=== PATIENT | female | born 1965 | race Caucasian/White ===

== ENCOUNTER 2016-04-27 12:46 | Inpatient (IN) | payer MEDICARE ==
[2016-04-27] MEDS ORDERED: SODIUM CHLORIDE 0.9% 1,000 ML IV ONE (14:09)
[2016-04-27] MEDS ORDERED: HYDROmorphone 1 MG/ML 1 ML SYRINGE IVP STA ×2 (14:09→16:45)
[2016-04-27] MEDS ORDERED: ONDANSETRON 4 MG/2 ML VIAL IVP STA ×2 (14:09→16:44)
--- NOTE | 2016-04-27 14:15 | ED ---
Abdominal Pain HPI <Salvador Almanza J - Last Filed: 04/27/16 16:58> - General Source: patient, RN notes reviewed Mode of arrival: ambulatory Limitations: no limitations <Darcie Sexton - Last Filed: 04/27/16 19:48> - General Chief Complaint: Abdominal Pain Stated Complaint: High Sugar Time Seen by Provider: 04/27/16 13:43 - History of Present Illness Initial Comments: Patient is a 51-year-old female presents to the emergency room for evaluation of abdominal pain. Patient states he has a history of diabetes and chronic pancreatitis. Patient states she began developing abdominal pain, nausea, vomiting and diarrhea last night. Patient states she has been checking his sugars throughout the night and during this morning and it is continuing to elevate. Patient states that her glucose monitor is now reading "too high". Patient states whenever her glucose monitor reads "too high" sugars are above 600. Patient states that she's been admitted here multiple times for lactic acidosis. Patient states she has chronic pancreatitis from elevated triglycerides. Patient states elevated triglycerides are hereditary and not due to diet. Patient states she is nauseous and has had diarrhea and vomiting multiple times throughout the day today. Patient states she is feeling weak all over. Patient denies headache, chest pain, shortness of breath. Patient states she's having 10 out of 10 left upper quadrant pain. (Darcie Sexton) - Related Data Home Medications Medication Instructions Recorded Confirmed Lisinopril [Zestril] 20 mg PO DAILY 09/09/13 04/27/16 HYDROmorphone [Dilaudid] 2 mg PO Q8H PRN 09/17/14 04/27/16 Multivitamins, Thera [Multivitamin] 1 tab PO DAILY 09/17/14 04/27/16 Atenolol [Tenormin] 100 mg PO DAILY 11/19/14 04/27/16 Calcium Carb-Vit D 500Mg-200Un 1 tab PO BID 11/19/14 04/27/16 [Oscal 500+D] Mirtazapine [Remeron] 45 mg PO HS 11/19/14 04/27/16 Rosuvastatin Calcium [Crestor] 40 mg PO HS 11/19/14 04/27/16 Insulin Aspart [NovoLOG Flexpen] 26 unit SQ AC-BRKFST 10/14/15 04/27/16 Insulin Aspart [NovoLOG Flexpen] 26 unit SQ AC-LUNCH 10/14/15 04/27/16 Insulin Aspart [NovoLOG Flexpen] 36 units SQ AC-SUPPER 10/14/15 04/27/16 Pancreatic Enzymes Otc(Unknown) 1 cap PO AC-TID 10/14/15 04/27/16 Cetirizine HCl [Zyrtec] 10 mg PO DAILY 02/04/16 04/27/16 Niacin 1,000 mg PO HS 02/04/16 04/27/16 clonazePAM [KlonoPIN] 2 mg PO HS 02/04/16 04/27/16 Previous Rx's Medication Instructions Recorded Fenofibrate [Lofibra] 160 mg PO HS tab 08/09/14 Gabapentin [Neurontin] 200 mg PO BID cap 08/09/14 Metoclopramide [Reglan] 5 mg PO ACHS tab 08/09/14 Prochlorperazine [Compazine] 10 mg PO TID PRN #0 tab 08/09/14 Sertraline [Zoloft] 200 mg PO DAILY tab 08/09/14 clonazePAM [KlonoPIN] 1 mg PO DAILY tab 08/09/14 fentaNYL 25MCG/HR PATCH [Duragesic 1 patch TRANSDERM Q72H #0 07/10/15 25MCG/HR] Dicyclomine [Bentyl] 10 mg PO TID PRN #90 cap 03/22/16 Famotidine [Pepcid] 20 mg PO BID #0 03/22/16 Insulin Detemir [Levemir] 50 unit SQ HS #0 vial 03/22/16 Allergies Allergy/AdvReac Type Severity Reaction Status Date / Time NSAIDS (Non-Steroidal Allergy Rash/Hives Verified 04/27/16 14:14 Anti-Inflamma Review of Systems ROS Other: All systems not noted in ROS Statement are negative. <Salvador Almanza - Last Filed: 04/27/16 16:58> ROS Other: All systems not noted in ROS Statement are negative. <Darcie Sexton - Last Filed: 04/27/16 19:48> ROS Statement: Those systems with pertinent positive or pertinent negative responses have been documented in the HPI. Past Medical History Past Medical History: Coronary Artery Disease (CAD), Diabetes Mellitus, GERD/ Reflux, Hyperlipidemia, Hypertension Additional Past Medical History / Comment(s): IDDM type I per pt, recurrent DKA in past, hypertensive heart disease, chronic pain syndrome, hypertriglyceridemia , chronic pancreatitis, chronic abdominal pain, gastroparesis, severe GERD, diabetic polyneuropathy mostly in hands and alittle in feet bilaterally, infectious colitis, perimenopausal. History of Any Multi-Drug Resistant Organisms: None Reported Past Surgical History: Cholecystectomy Additional Past Surgical History / Comment(s): Biliary stent through an ERCP that was performed at [facility] and stent removed 2007, lap jenn, colonoscopy, ERCP. Past Anesthesia/Blood Transfusion Reactions: No Reported Reaction Additional Past Anesthesia/Blood Transfusion Reaction / Comment(s): Pt has never received blood. Past Psychological History: Anxiety, Depression, Panic Disorder, PTSD Additional Psychological History / Comment(s): Pt lives in her home with her gadiel , son-in-law and 2 grandchildren. She is independent. She currently is on disability. She drives a car a limited amount-family drive her places at times. She has anxiety and occasional anxiety-panic attacks. She sees Dr. Fink at [facility] and is councelled by Chad Samuels. She states her current psych med rigeme is working well. Her gadiel and dad help her out. She has a rescue dog. Smoking Status: Never smoker Past Alcohol Use History: None Reported Past Drug Use History: None Reported - Past Family History Father Family Medical History: No Reported History Additional Family Medical History / Comment(s): Father had severe anxiety and was hospitalized for this at times. Mother Family Medical History: Cancer Additional Family Medical History / Comment(s): Mother of metastatic breast CA at the age of 42yrs. <Darcie Sexton - Last Filed: 04/27/16 19:48> General Exam <Salvador Almanza - Last Filed: 04/27/16 16:58> Limitations: no limitations General appearance: alert, in no apparent distress Head exam: Present: atraumatic, normocephalic, normal inspection Eye exam: Present: normal appearance ENT exam: Present: normal exam Neck exam: Present: normal inspection Respiratory exam: Present: normal lung sounds bilaterally. Absent: respiratory distress Cardiovascular Exam: Present: regular rate, normal rhythm, normal heart sounds GI/Abdominal exam: Present: soft, tenderness (Left upper quadrant), normal bowel sounds. Absent: distended, guarding, rebound, rigid Extremities exam: Present: normal inspection Back exam: Present: normal inspection Neurological exam: Present: alert, oriented X3, CN II-XII intact, normal gait Psychiatric exam: Present: normal affect, normal mood Skin exam: Present: warm, dry, intact, normal color. Absent: rash <Darcie Sexton - Last Filed: 04/27/16 19:48> - General Exam Comments Initial Comments: Laying in exam room, no acute distress. (Darcie Sexton) Medical Decision Making - Lab Data Result diagrams: 04/27/16 14:30 04/27/16 14:30 <Salvador Almanza - Last Filed: 04/27/16 16:58> - Lab Data Result diagrams: 04/27/16 14:30 04/27/16 14:30 <Darcie Sexton - Last Filed: 04/27/16 19:48> - Medical Decision Making The patient was seen and examined. All diagnostics were reviewed. Case is discussed with internal medicine and they are agreeable to admission. The case also was discussed with the PA and I agree with the findings as documented. ( Salvador Almanza) Patient is a 51-year-old female presents to the emergency room for evaluation abdominal pain, nausea and vomiting. Patient's lactic acid 5.6. Patient is also hyperglycemic. Case discussed with Dr. Almanza. Dr. Almanza also evaluated patient. Dr. Almanza discussed case with Dr. Borges who agreed to admit patient. Patient will be started on an insulin drip and advised to switch to a sliding scale once glucose reaches 250. Patient hydrated with IV fluids. Plan discussed with patient. (Darcie Sexton) - Lab Data Lab Results 04/27/16 04/27/16 04/27/16 Range/Units 14:30 14:30 14:30 WBC 8.3 (3.8-10.6) k/uL RBC 4.82 (3.80-5.40) m/uL Hgb 14.7 (11.4-16.0) gm/dL Hct 43.3 (34.0-46.0) % MCV 89.8 (80.0-100.0) fL MCH 30.5 (25.0-35.0) pg MCHC 33.9 (31.0-37.0) g/dL RDW 13.1 (11.5-15.5) % Plt Count 213 (150-450) k/uL Neutrophils % 81 % Lymphocytes % 15 % Monocytes % 3 % Eosinophils % 1 % Basophils % 0 % Neutrophils # 6.7 (1.3-7.7) k/uL Lymphocytes # 1.2 (1.0-4.8) k/uL Monocytes # 0.3 (0-1.0) k/uL Eosinophils # 0.1 (0-0.7) k/uL Basophils # 0.0 (0-0.2) k/uL Sodium 142 (137-145) mmol/L Potassium 5.1 (3.5-5.1) mmol/L Chloride 101 (98-107) mmol/L Carbon Dioxide 20 L (22-30) mmol/L Anion Gap 21 mmol/L BUN 12 (7-17) mg/dL Creatinine 0.56 (0.52-1.04) mg/dL Est GFR (MDRD) Af Amer >60 (>60 ml/min/1.73 sqM) Est GFR (MDRD) Non-Af >60 (>60 ml/min/1.73 sqM) Glucose 492 H* (74-99) mg/dL POC Glucose (mg/dL) (75-99) mg/dL POC Glu Hole Digger ID Plasma Lactic Acid [place] 5.6 H* (0.7-2.0) mmol/L Calcium 10.8 H (8.4-10.2) mg/dL Magnesium 2.1 (1.6-2.3) mg/dL Total Bilirubin 0.7 (0.2-1.3) mg/dL AST 81 H (14-36) U/L ALT 111 H (9-52) U/L Alkaline Phosphatase 153 H (38-126) U/L Total Protein 8.3 H (6.3-8.2) g/dL Albumin 5.3 H (3.5-5.0) g/dL Amylase 86 (30-110) U/L Lipase 192 (23-300) U/L Urine Color Urine Appearance (Clear) Urine pH (5.0-8.0) Ur Specific [place] (1.001-1.035) Urine Protein (Negative) Urine Glucose (UA) (Negative) Urine Ketones (Negative) Urine Blood (Negative) Urine Nitrate (Negative) Urine Bilirubin (Negative) Urine Urobilinogen (<2.0) mg/dL Ur Leukocyte Esterase (Negative) Acetone, Qual Negative (Negative) 04/27/16 04/27/16 04/27/16 Range/Units 14:30 14:53 16:52 WBC (3.8-10.6) k/uL RBC (3.80-5.40) m/uL Hgb (11.4-16.0) gm/dL Hct (34.0-46.0) % MCV (80.0-100.0) fL MCH (25.0-35.0) pg MCHC (31.0-37.0) g/dL RDW (11.5-15.5) % Plt Count (150-450) k/uL Neutrophils % % Lymphocytes % % Monocytes % % Eosinophils % % Basophils % % Neutrophils # (1.3-7.7) k/uL Lymphocytes # (1.0-4.8) k/uL Monocytes # (0-1.0) k/uL Eosinophils # (0-0.7) k/uL Basophils # (0-0.2) k/uL Sodium (137-145) mmol/L Potassium (3.5-5.1) mmol/L Chloride (98-107) mmol/L Carbon Dioxide (22-30) mmol/L Anion Gap mmol/L BUN (7-17) mg/dL Creatinine (0.52-1.04) mg/dL Est GFR (MDRD) Af Amer (>60 ml/min/1.73 sqM) Est GFR (MDRD) Non-Af (>60 ml/min/1.73 sqM) Glucose (74-99) mg/dL POC Glucose (mg/dL) 420 H 314 H (75-99) mg/dL POC Glu Hole Digger ID Saima King A Lewis, Brittany, A Plasma Lactic Acid [place] (0.7-2.0) mmol/L Calcium (8.4-10.2) mg/dL Magnesium (1.6-2.3) mg/dL Total Bilirubin (0.2-1.3) mg/dL AST (14-36) U/L ALT (9-52) U/L Alkaline Phosphatase (38-126) U/L Total Protein (6.3-8.2) g/dL Albumin (3.5-5.0) g/dL Amylase (30-110) U/L Lipase (23-300) U/L Urine Color Colorless Urine Appearance Clear (Clear) Urine pH 5.0 (5.0-8.0) Ur Specific [place] 1.024 (1.001-1.035) Urine Protein Negative (Negative) Urine Glucose (UA) 4+ H (Negative) Urine Ketones Negative (Negative) Urine Blood Negative (Negative) Urine Nitrate Negative (Negative) Urine Bilirubin Negative (Negative) Urine Urobilinogen <2.0 (<2.0) mg/dL Ur Leukocyte Esterase Negative (Negative) Acetone, Qual (Negative) Disposition <Salvador Almanza - Last Filed: 04/27/16 16:58> Decision Date: 04/27/16 <Darcie Sexton - Last Filed: 04/27/16 19:48> Clinical Impression: Lactic acidosis, Hyperglycemia Disposition: ADMITTED IP TO THIS HOSP Condition: Stable
[2016-04-27 14:54] LABS: Basophils % (A) 0 %; CH 31.1; CHCM 34.8; Eosinophils # (A) 0.1 k/uL (0-0.7); Eosinophils % (A) 1 %; HCT 43.3 % (34.0-46.0); HDW 3.01; HGB 14.7 gm/dL (11.4-16.0); Luc # (Auto) 0.05; Luc % (Auto) 1; Lymphocytes # (A) 1.2 k/uL (1.0-4.8); Lymphocytes % (A) 15 %; MCH 30.5 pg (25.0-35.0); MCHC 33.9 g/dL (31.0-37.0); MCV 89.8 fL (80.0-100.0); Mean Platelet Volume 6.9; Monocytes # (A) 0.3 k/uL (0-1.0); Monocytes % (A) 3 %; Neutrophils # (A) 6.7 k/uL (1.3-7.7); Neutrophils % (A) 81 %; RBC 4.82 m/uL (3.80-5.40); RDW 13.1 % (11.5-15.5); WBC 8.3 k/uL (3.8-10.6); WBC (Perox) 8.47
[2016-04-27 14:55] LABS: Appearance,Urine Clear (Clear); Bilirubin,Urine Negative (Negative); Glucose,Urine (UA) 4+ (Negative); Ketones,Urine Negative (Negative); Leukocyte Esterase,Urine Negative (Negative); Nitrite,Urine Negative (Negative); Protein,Urine Negative (Negative); Specific Gravity,Urine 1.024 (1.001-1.035); UA Billing (MACRO vs. MICRO) CHEM; Urobilinogen,Urine <2.0 mg/dL (<2.0)
[2016-04-27 14:56] LABS: Glucose,Whole Blood 420 mg/dL (75-99)
[2016-04-27 15:10] LABS: ALT 111 U/L (9-52); AST 81 U/L (14-36); Alkaline Phosphatase 153 U/L (38-126); Amylase 86 U/L (30-110); Anion Gap 21 mmol/L; Blood Urea Nitrogen 12 mg/dL (7-17); Calcium 10.8 mg/dL (8.4-10.2); Carbon Dioxide 20 mmol/L (22-30); Chloride 101 mmol/L (98-107); Magnesium 2.1 mg/dL (1.6-2.3); Non-African American GFR(MDRD) >60 (>60 ml/min/1.73 sqM); Potassium 5.1 mmol/L (3.5-5.1); Sodium 142 mmol/L (137-145); Total Bilirubin 0.7 mg/dL (0.2-1.3); Total Protein 8.3 g/dL (6.3-8.2)
[2016-04-27] MEDS ORDERED: SODIUM CHLORIDE 0.9% 500 ML IV ONE (15:37)
[2016-04-27 15:58] LABS: Glucose 492 mg/dL (74-99)
[2016-04-27] MEDS ORDERED: INSULIN REGULAR 100 UNIT/ML VIAL SQ STA (16:38)
[2016-04-27 16:56] LABS: Glucose,Whole Blood 314 mg/dL (75-99)
[2016-04-27] MEDS ORDERED: NALOXONE 0.4 MG/ML 1 ML VIAL IV PRN (16:56)
[2016-04-27] MEDS ORDERED: INSULIN REGULAR 100 UNIT in SODIUM CHLORIDE 0.9% 100 ML IV ONE (17:00)
[2016-04-27] MEDS: ONDANSETRON 4 MG/2 ML VIAL IVP PRN (17:13)
[2016-04-27 18:14] LABS: Glucose,Whole Blood 243 mg/dL (75-99)
[2016-04-27] MEDS ORDERED: DICYCLOMINE 10 MG CAP PO PRN (18:20)
[2016-04-27] MEDS ORDERED: PROCHLORPERAZINE 10 MG TAB PO PRN (18:20)
[2016-04-27] MEDS: SODIUM CHLORIDE 0.9% 1,000 ML IV SCH ×2 (18:50→22:49)
[2016-04-27] MEDS: HYDROmorphone 1 MG/ML 1 ML SYRINGE IV PRN ×2 (19:52→22:49)
[2016-04-27] MEDS: NIACIN TR 500 MG CAPSULE.ER PO SCH (19:53)
[2016-04-27] MEDS: CALCIUM CARB-VIT D 500MG-200UN 1 EACH TAB PO SCH (19:53)
[2016-04-27] MEDS: clonazePAM 1 MG TAB PO SCH (19:53)
[2016-04-27] MEDS: GABAPENTIN 100 MG CAP PO SCH (19:54)
[2016-04-27] MEDS: METOCLOPRAMIDE 5 MG TAB PO SCH (19:54)
[2016-04-27] MEDS: FAMOTIDINE 20 MG TAB PO SCH (19:54)
[2016-04-27] MEDS: FENOFIBRATE 160 MG TAB PO SCH (19:54)
[2016-04-27] MEDS: ATORVASTATIN 80 MG TAB PO SCH (19:54)
[2016-04-27] MEDS: MIRTAZAPINE 45 MG TABLET PO SCH (19:54)
[2016-04-27 19:57] LABS: Glucose,Whole Blood 306 mg/dL (75-99)
[2016-04-27] MEDS: INSULIN DETEMIR 100 UNIT/ML 10 ML VIAL SQ SCH (21:08)
[2016-04-27] MEDS: INSULIN LISPRO (humaLOG) 300 UNIT/3 ML VIAL SQ SCH (21:08)
[2016-04-28] MEDS: ONDANSETRON 4 MG/2 ML VIAL IVP PRN ×3 (01:37→19:01)
[2016-04-28] MEDS: HYDROmorphone 1 MG/ML 1 ML SYRINGE IV PRN ×7 (01:37→22:20)
[2016-04-28 05:20] LABS: Glucose,Whole Blood 225 mg/dL (75-99)
[2016-04-28] MEDS: INSULIN LISPRO (humaLOG) 300 UNIT/3 ML VIAL SQ SCH ×5 (06:32→22:17)
[2016-04-28] MEDS: METOCLOPRAMIDE 5 MG TAB PO SCH ×4 (06:33→23:46)
[2016-04-28] MEDS: FAMOTIDINE 20 MG TAB PO SCH ×2 (08:20→22:16)
[2016-04-28] MEDS: ATENOLOL 50 MG TAB PO SCH (08:21)
[2016-04-28] MEDS: MULTIVITAMINS, THERA 1 EACH TAB PO SCH (08:21)
[2016-04-28] MEDS: LISINOPRIL 20 MG TAB PO SCH (08:21)
[2016-04-28] MEDS: GABAPENTIN 100 MG CAP PO SCH ×2 (08:22→22:17)
[2016-04-28] MEDS: CALCIUM CARB-VIT D 500MG-200UN 1 EACH TAB PO SCH ×2 (08:22→22:16)
[2016-04-28] MEDS: SERTRALINE 100 MG TAB PO SCH (08:22)
[2016-04-28] MEDS: LORATADINE 10 MG TAB PO SCH (08:22)
[2016-04-28] MEDS: SODIUM CHLORIDE 0.9% 1,000 ML IV SCH (08:23)
[2016-04-28] MEDS: clonazePAM 1 MG TAB PO SCH ×2 (08:47→22:16)
[2016-04-28 11:49] LABS: Glucose,Whole Blood 244 mg/dL (75-99)
--- NOTE | 2016-04-28 11:52 | P.HPIM ---
History of Present Illness H&P Date: 04/27/16 Chief Complaint: Non ketotic hyperosmolar hyperglycemia. This is a 51-year-old female one of my patients with previous medical history significant for familial dyslipidemia, recurrent pancreatitis and chronic abdominal pain, thought to be due to hypertriglyceridemia, hypertension and hypertensive cardiovascular disease, diabetes mellitus type 2 with recurrent diabetic ketoacidosis in the past. Patient was brought into the emergency department at [facility] yesterday because of elevated blood glucose level in the range of 600, patient was complaining of increased abdominal pain associated with increased diarrhea without any nausea or vomiting , she was found to have significant lactic acidosis for which she was given 2 L of normal saline a subsequent she was admitted to the hospital for non- ketotic hyperosmolar hyperglycemia and was placed on insulin drip as well as normal saline at 100 mL an hour, and she was admitted to a telemetry unit. Review of Systems Constitutional: Denies chills, Denies chronic headaches, Denies fever, Denies malaise, Denies weakness, Denies weight gain, Denies weight loss Eyes: denies blurred vision Ears: deny: decreased hearing Ears, nose, mouth and throat: Denies dysphagia, Denies neck fullness/pressure, Denies neck lump, Denies swelling in throat, Denies sore throat Cardiovascular: Reports high blood pressure, Denies chest pain, Denies decreased exercise tolerance, Denies dyspnea on exertion, Denies paroxysmal nocturnal dyspnea, Denies phlebitis, Denies rapid heart beat, Denies shortness of breath, Denies syncope Respiratory: Denies congestion, Denies cough, Denies cough with sputum, Denies home oxygen, Denies sleep apnea, Denies snoring, Denies wheezing Gastrointestinal: Reports abdominal pain, Reports bloating, Reports change in bowel habits, Reports diarrhea, Reports dyspepsia, Reports heartburn, Reports nausea, Denies constipation, Denies hematemesis, Denies hematochezia, Denies melena, Denies vomiting Genitourinary: Denies dysuria, Denies hematuria Musculoskeletal: Denies myalgias Musculoskeletal: absent: ankle pain, ankle stiffness, ankle swelling, elbow pain , elbow stiffness, elbow swelling, foot pain, foot stiffness, foot swelling, hand pain, hand stiffness, hand swelling, hip pain, hip stiffness, hip swelling , knee pain, knee stiffness, knee swelling, shoulder pain, shoulder stiffness, shoulder swelling, wrist pain, wrist stiffness, wrist swelling Integumentary: Denies pruritus, Denies rash Neurological: Denies numbness, Denies weakness Psychiatric: Reports anxiety, Reports depression, Denies sadness/tearfulness, Denies sleep disturbances, Denies suicidal ideation Endocrine: Denies fatigue, Denies weight change Past Medical History Past Medical History: Coronary Artery Disease (CAD), Diabetes Mellitus, GERD/ Reflux, Hyperlipidemia, Hypertension Additional Past Medical History / Comment(s): IDDM type I per pt, recurrent DKA in past, hypertensive heart disease, chronic pain syndrome, hypertriglyceridemia , chronic pancreatitis, chronic abdominal pain, gastroparesis, severe GERD, diabetic polyneuropathy mostly in hands and alittle in feet bilaterally, infectious colitis, perimenopausal. History of Any Multi-Drug Resistant Organisms: None Reported Past Surgical History: Cholecystectomy Additional Past Surgical History / Comment(s): Biliary stent through an ERCP that was performed at [facility] and stent removed 2007, lap jenn, colonoscopy, ERCP. Past Anesthesia/Blood Transfusion Reactions: No Reported Reaction Additional Past Anesthesia/Blood Transfusion Reaction / Comment(s): Pt has never received blood. Past Psychological History: Anxiety, Depression, Panic Disorder, PTSD Additional Psychological History / Comment(s): Pt lives in her home with her gadiel , son-in-law and 2 grandchildren. She is independent. She currently is on disability. She drives a car a limited amount-family drive her places at times. She has anxiety and occasional anxiety-panic attacks. She sees Dr. Fink at [facility] and is councelled by Chad Samuels. She states her current psych med rigeme is working well. Her gadiel and dad help her out. She has a rescue dog. Smoking Status: Never smoker Past Alcohol Use History: None Reported Past Drug Use History: None Reported - Past Family History Father Family Medical History: No Reported History Additional Family Medical History / Comment(s): Father had severe anxiety and was hospitalized for this at times. Mother Family Medical History: Cancer Additional Family Medical History / Comment(s): Mother of metastatic breast CA at the age of 42yrs. Medications and Allergies Home Medications Medication Instructions Recorded Confirmed Type Lisinopril [Zestril] 20 mg PO DAILY 09/09/04/27/16 History HYDROmorphone [Dilaudid] 2 mg PO Q8H PRN 09/17/14 04/27/16 History Multivitamins, Thera [Multivitamin] 1 tab PO DAILY 09/17/14 04/27/16 History Atenolol [Tenormin] 100 mg PO DAILY 11/19/14 04/27/16 History Calcium Carb-Vit D 500Mg-200Un 1 tab PO BID 11/19/14 04/27/16 History [Oscal 500+D] Mirtazapine [Remeron] 45 mg PO HS 11/19/14 04/27/16 History Rosuvastatin Calcium [Crestor] 40 mg PO HS 11/19/14 04/27/16 History Insulin Aspart [NovoLOG Flexpen] 26 unit SQ AC-BRKFST 10/14/15 04/27/16 History Insulin Aspart [NovoLOG Flexpen] 26 unit SQ AC-LUNCH 10/14/15 04/27/16 History Insulin Aspart [NovoLOG Flexpen] 36 units SQ AC-SUPPER 10/14/15 04/27/16 History Pancreatic Enzymes Otc(Unknown) 1 cap PO AC-TID 10/14/15 04/27/16 History Cetirizine HCl [Zyrtec] 10 mg PO DAILY 02/04/16 04/27/16 History Niacin 1,000 mg PO HS 02/04/16 04/27/16 History clonazePAM [KlonoPIN] 2 mg PO HS 02/04/16 04/27/16 History Allergies Allergy/AdvReac Type Severity Reaction Status Date / Time NSAIDS (Non-Steroidal Allergy Rash/Hives Verified 04/27/16 14:14 Anti-Inflamma Physical Exam Vitals: Vital Signs Pulse Resp BP Pulse Ox 04/27/16 17:19 93 14 119/76 95 - Constitutional General appearance: average body habitus, no acute distress - EENT Eyes: anicteric sclerae, PERRLA, no ptosis, no scleral icterus, normal appearance ENT: hearing grossly normal, normal oropharynx, no thrush Ears: bilateral: normal - Neck Neck: no lymphadenopathy, normal ROM, no rigidity, no stridor, no thyromegaly Carotids: bilateral: upstroke normal Thyroid: bilateral: normal size - Respiratory Respiratory: bilateral: diminished, negative: dullness, rales, rhonchi, wheezing , prolonged expiration, prolonged inspiration - Cardiovascular Rhythm: regular Heart sounds: normal: S1, S2 Abnormal Heart Sounds: no systolic murmur, no S3 Gallop, no S4 Gallop, no click - Gastrointestinal General gastrointestinal: normal bowel sounds, soft, no splenomegaly, no tenderness, no umbilical hernia, no ventral hernia - Integumentary Integumentary: normal, normal turgor - Neurologic Neurologic: CNII-XII intact - Musculoskeletal Musculoskeletal: generalized weakness, strength equal bilaterally - Psychiatric Psychiatric: A&O x's 3, appropriate affect, intact judgment & insight Results CBC & Chem 7: 04/27/16 14:30 04/27/16 14:30 Thrombosis Risk Factor Assmnt - DVT/VTE Prophylaxis DVT/VTE Prophylaxis: Mechanical Prophylaxis ordered Assessment and Plan Plan: Assessment and plan: 1. Hyperosmolar nonketotic hyperglycemia. IV fluid, insulin drip, monitor the patient was a very closely every hour, and transition the patient to her Lantus at night if her blood with level is in the good range, since the patient does not have any significant acidosis at this point in time. 2. History of diabetes mellitus type 2 insulin requiring we will transition the patient back to Levemir and Humalog. 3. Hypertension and hypertensive cardiovascular disease with left ventricular hypertrophy we will continue the patient on atenolol 100 mg orally once every day as well as lisinopril 20 mg orally once every day. 4. Hyperlipidemia continue the patient on Crestor 40 mg orally once every day, fenofibrate 160 mg orally once every day,Niaspan 1000 g orally once every. 5. Diabetic polyneuropathy continue gabapentin 200 mg orally twice every day. 6. Anxiety generalized continue Klonopin 2 milligram in the evening and 1 mg in the morning. 7. Depression, recurrent continue Zoloft 200 mg orally once every day. 8. Gastroparesis continue Reglan 5 mg before each meal 3 times every day. 9. Chronic pancreatitis continue IV fluid resuscitation as well as current pain management in the form of Dilaudid along with fentanyl patch. 10. GERD continue PPI. 11. DVT prophylaxis early ambulation. 12. Full code. 13. Admit to inpatient. Estimated length of stay 2 midnights .
--- NOTE | 2016-04-28 13:00 | P.PN ---
Subjective This is a 51-year-old female one of my patients with previous medical history significant for familial dyslipidemia, recurrent pancreatitis and chronic abdominal pain, thought to be due to hypertriglyceridemia, hypertension and hypertensive cardiovascular disease, diabetes mellitus type 2 with recurrent diabetic ketoacidosis in the past. Patient was brought into the emergency department at [facility] yesterday because of elevated blood glucose level in the range of 600, patient was complaining of increased abdominal pain associated with increased diarrhea without any nausea or vomiting , she was found to have significant lactic acidosis for which she was given 2 L of normal saline a subsequent she was admitted to the hospital for non- ketotic hyperosmolar hyperglycemia and was placed on insulin drip as well as normal saline at 100 mL an hour, and she was admitted to a telemetry unit. 04/28: Patient thinks she will do better on a soft diet which is been ordered for lunch. IV fluids changed to saline lock. Patient will be resumed back on scheduled Humalog. Blood sugars have been running in the 225-306. Patient will be transferred to the [facility] floor. Objective - Vital Signs Vital signs: Vital Signs Temp 97.4 F L 04/28/16 08:00 Pulse 70 04/28/16 12:10 Resp 16 04/28/16 12:10 BP 110/65 04/28/16 12:10 Pulse Ox 98 04/28/16 12:10 Intake & Output 04/27/16 04/28/16 04/28/16 18:59 06:59 18:59 Intake Total 120 Output Total 800 Balance -800 120 Weight 64.41 kg 64.8 kg Intake: Oral 120 Output: Urine 800 Other: Voiding Method Toilet Toilet Toilet # Voids 1 - Exam General appearance: average body habitus, no acute distress - EENT Eyes: anicteric sclerae, PERRLA, no ptosis, no scleral icterus, normal appearance ENT: hearing grossly normal, normal oropharynx, no thrush Ears: bilateral: normal - Neck Neck: no lymphadenopathy, normal ROM, no rigidity, no stridor, no thyromegaly Carotids: bilateral: upstroke normal Thyroid: bilateral: normal size - Respiratory Respiratory: bilateral: diminished, negative: dullness, rales, rhonchi, wheezing , prolonged expiration, prolonged inspiration - Cardiovascular Rhythm: regular Heart sounds: normal: S1, S2 Abnormal Heart Sounds: no systolic murmur, no S3 Gallop, no S4 Gallop, no click - Gastrointestinal General gastrointestinal: normal bowel sounds, soft, no splenomegaly, no tenderness, no umbilical hernia, no ventral hernia - Integumentary Integumentary: normal, normal turgor - Neurologic Neurologic: CNII-XII intact - Musculoskeletal Musculoskeletal: generalized weakness, strength equal bilaterally - Psychiatric Psychiatric: A&O x's 3, appropriate affect, intact judgment & insight - Labs CBC & Chem 7: 04/27/16 14:30 04/27/16 14:30 Labs: Abnormal Lab Results - Last 24 Hours (Table) 04/27/16 04/27/16 04/28/16 Range/Units 17:59 19:44 05:17 POC Glucose (mg/dL) 243 H 306 H 225 H (75-99) mg/dL 04/28/16 Range/Units 11:47 POC Glucose (mg/dL) 244 H (75-99) mg/dL Assessment and Plan Plan: 1. Hyperosmolar nonketotic hyperglycemia. IV fluid, insulin drip, monitor the patient was a very closely every hour, and transition the patient to her Lantus at night if her blood with level is in the good range, since the patient does not have any significant acidosis at this point in time. 2. History of diabetes mellitus type 2 insulin requiring we will transition the patient back to Levemir and Humalog. 3. Hypertension and hypertensive cardiovascular disease with left ventricular hypertrophy we will continue the patient on atenolol 100 mg orally once every day as well as lisinopril 20 mg orally once every day. 4. Hyperlipidemia continue the patient on Crestor 40 mg orally once every day, fenofibrate 160 mg orally once every day,Niaspan 1000 g orally once every. 5. Diabetic polyneuropathy continue gabapentin 200 mg orally twice every day. 6. Anxiety generalized continue Klonopin 2 milligram in the evening and 1 mg in the morning. 7. Depression, recurrent continue Zoloft 200 mg orally once every day. 8. Gastroparesis continue Reglan 5 mg before each meal 3 times every day. 9. Chronic pancreatitis continue IV fluid resuscitation as well as current pain management in the form of Dilaudid along with fentanyl patch. 10. GERD continue PPI. 11. DVT prophylaxis early ambulation. 12. Full code. Discharge plan: Return home Impression and plan of care have been directed as dictated by the signing physician. Amanda Kumar nurse practitioner acting as scribe for signing physician. Time with Patient: Greater than 30
[2016-04-28 13:01] VITALS: BMI 24.5
[2016-04-28 17:01] LABS: Glucose,Whole Blood 112 mg/dL (75-99)
[2016-04-28] MEDS ORDERED: INSULIN LISPRO (humaLOG) 300 UNIT/3 ML VIAL SQ SCH (17:30)
[2016-04-28 21:22] LABS: Glucose,Whole Blood 163 mg/dL (75-99)
[2016-04-28] MEDS: ATORVASTATIN 80 MG TAB PO SCH (22:16)
[2016-04-28] MEDS: FENOFIBRATE 160 MG TAB PO SCH (22:17)
[2016-04-28] MEDS: INSULIN DETEMIR 100 UNIT/ML 10 ML VIAL SQ SCH (22:17)
[2016-04-28] MEDS: MIRTAZAPINE 45 MG TABLET PO SCH (22:18)
[2016-04-28] MEDS: NIACIN TR 500 MG CAPSULE.ER PO SCH (22:18)
[2016-04-29 02:00] LABS: Glucose,Whole Blood 116 mg/dL (75-99)
[2016-04-29 07:25] LABS: Glucose,Whole Blood 117 mg/dL (75-99)
[2016-04-29] MEDS ORDERED: INSULIN LISPRO (humaLOG) 300 UNIT/3 ML VIAL SQ SCH (07:30)
[2016-04-29 07:46] VITALS: RESP 18
[2016-04-29] MEDS: ONDANSETRON 4 MG/2 ML VIAL IVP PRN (08:07)
[2016-04-29] MEDS: FAMOTIDINE 20 MG TAB PO SCH (08:16)
[2016-04-29] MEDS: ATENOLOL 50 MG TAB PO SCH (08:17)
[2016-04-29] MEDS: SERTRALINE 100 MG TAB PO SCH (08:17)
[2016-04-29] MEDS: LISINOPRIL 20 MG TAB PO SCH (08:17)
[2016-04-29] MEDS: GABAPENTIN 100 MG CAP PO SCH (08:17)
[2016-04-29] MEDS: MULTIVITAMINS, THERA 1 EACH TAB PO SCH (08:17)
[2016-04-29] MEDS: LORATADINE 10 MG TAB PO SCH (08:17)
[2016-04-29] MEDS: CALCIUM CARB-VIT D 500MG-200UN 1 EACH TAB PO SCH (08:17)
[2016-04-29] MEDS: clonazePAM 1 MG TAB PO SCH (08:17)
[2016-04-29] MEDS: METOCLOPRAMIDE 5 MG TAB PO SCH ×2 (08:17→12:33)
[2016-04-29] MEDS: HYDROmorphone 1 MG/ML 1 ML SYRINGE IV PRN ×2 (08:18→11:28)
[2016-04-29 09:20] LABS: ALT 71 U/L (9-52); AST 25 U/L (14-36); Alkaline Phosphatase 89 U/L (38-126); Anion Gap 11 mmol/L; Blood Urea Nitrogen 17 mg/dL (7-17); Calcium 9.7 mg/dL (8.4-10.2); Carbon Dioxide 26 mmol/L (22-30); Chloride 105 mmol/L (98-107); Glucose 131 mg/dL (74-99); Non-African American GFR(MDRD) >60 (>60 ml/min/1.73 sqM); Potassium 4.5 mmol/L (3.5-5.1); Sodium 142 mmol/L (137-145); Total Bilirubin 0.8 mg/dL (0.2-1.3); Total Protein 6.3 g/dL (6.3-8.2)
[2016-04-29] MEDS: INSULIN LISPRO (humaLOG) 300 UNIT/3 ML VIAL SQ SCH ×3 (11:27→12:33)
[2016-04-29 12:35] LABS: Glucose,Whole Blood 263 mg/dL (75-99)
[2016-04-29 14:10] VITALS: BP 100/69; PULSE 65; TEMP 97
--- NOTE | 2016-05-12 08:25 | P.DS ---
Providers Date of admission: 04/27/16 17:11 Expected date of discharge: 04/29/16 Attending physician: Mike Borges Primary care physician: Mike Borges Hospital Course: This is a 51-year-old female one of my patients with previous medical history significant for familial dyslipidemia, recurrent pancreatitis and chronic abdominal pain, thought to be due to hypertriglyceridemia, hypertension and hypertensive cardiovascular disease, diabetes mellitus type 2 with recurrent diabetic ketoacidosis in the past. Patient was brought into the emergency department at [facility] yesterday because of elevated blood glucose level in the range of 600, patient was complaining of increased abdominal pain associated with increased diarrhea without any nausea or vomiting , she was found to have significant lactic acidosis for which she was given 2 L of normal saline a subsequent she was admitted to the hospital for non- ketotic hyperosmolar hyperglycemia and was placed on insulin drip as well as normal saline at 100 mL an hour, and she was admitted to a telemetry unit. 04/28: Patient thinks she will do better on a soft diet which is been ordered for lunch. IV fluids changed to saline lock. Patient will be resumed back on scheduled Humalog. Blood sugars have been running in the 225-306. Patient will be transferred to the [facility] floor. 04/29: Patient's blood sugars are much improved running 131-116. Diet is being advanced. Patient is back on her home insulins and will be discharged home today in stable condition. Discharge diagnoses: 1. Hyperosmolar nonketotic hyperglycemia. 2. History of diabetes mellitus type 2 insulin requiring 3. Hypertension and hypertensive cardiovascular disease with left ventricular hypertrophy 4. Hyperlipidemia 5. Diabetic polyneuropathy 6. Anxiety generalized 7. Depression, recurrent 8. Gastroparesis 9. Chronic pancreatitis 10. GERD Discharge plan: Return home Impression and plan of care have been directed as dictated by the signing physician. Amanda Kumar nurse practitioner acting as scribe for signing physician. Patient Condition at Discharge: Good Plan - Discharge Summary Discharge Medication List Lisinopril [Zestril] 20 mg PO DAILY 09/09/13 [History] Fenofibrate [Lofibra] 160 mg PO HS tab 08/09/14 [Rx] Gabapentin [Neurontin] 200 mg PO BID cap 08/09/14 [Rx] Metoclopramide [Reglan] 5 mg PO ACHS tab 08/09/14 [Rx] Prochlorperazine [Compazine] 10 mg PO TID PRN #0 tab 08/09/14 [Rx] Sertraline [Zoloft] 200 mg PO DAILY tab 08/09/14 [Rx] clonazePAM [KlonoPIN] 1 mg PO DAILY tab 08/09/14 [Rx] HYDROmorphone [Dilaudid] 2 mg PO Q8H PRN 09/17/14 [History] Multivitamins, Thera [Multivitamin] 1 tab PO DAILY 09/17/14 [History] Atenolol [Tenormin] 100 mg PO DAILY 11/19/14 [History] Calcium Carb-Vit D 500Mg-200Un [Oscal 500+D] 1 tab PO BID 11/19/14 [History] Mirtazapine [Remeron] 45 mg PO HS 11/19/14 [History] Rosuvastatin Calcium [Crestor] 40 mg PO HS 11/19/14 [History] fentaNYL 25MCG/HR PATCH [Duragesic 25MCG/HR] 1 patch TRANSDERM Q72H #0 [Rx] Insulin Aspart [NovoLOG Flexpen] 26 unit SQ AC-BRKFST 10/14/15 [History] Insulin Aspart [NovoLOG Flexpen] 26 unit SQ AC-LUNCH 10/14/15 [History] Insulin Aspart [NovoLOG Flexpen] 36 units SQ AC-SUPPER 10/14/15 [History] Pancreatic Enzymes Otc(Unknown) 1 cap PO AC-TID 10/14/15 [History] Cetirizine HCl [Zyrtec] 10 mg PO DAILY 02/04/16 [History] Niacin 1,000 mg PO HS 02/04/16 [History] clonazePAM [KlonoPIN] 2 mg PO HS 02/04/16 [History] Dicyclomine [Bentyl] 10 mg PO TID PRN #90 cap 03/22/16 [Rx] Famotidine [Pepcid] 20 mg PO BID #0 03/22/16 [Rx] Insulin Detemir [Levemir] 50 unit SQ HS #0 vial 03/22/16 [Rx] Follow up Appointment(s)/Referral(s): Mike Borges MD [Primary Care Provider] - 05/06/16 (Office currently closed, please call for appointment. ) Patient Instructions/Handouts: Lactic Acidosis (GEN) Activity/Diet/Wound Care/Special Instructions: Cardiac, diabetic diet. Discharge Disposition: HOME SELF-CARE
== END 2016-04-29 14:54 | disposition home or self-care (01) | DRG 638 ==
LOC: EC 12:46 → 6SEL 17:11 → 4MS4W 04-28 12:32
PROVIDERS: ADMIT Internal Medicine; ATTEND Internal Medicine
DX: E11.00 Type 2 diabetes mellitus with hyperosmolarity without nonketotic hyperglycemic-hyperosmolar coma (NKHHC) (principal); E87.2 Acidosis; K86.1 Other chronic pancreatitis; I11.9 Hypertensive heart disease without heart failure; K31.84 Gastroparesis; E11.42 Type 2 diabetes mellitus with diabetic polyneuropathy; E11.43 Type 2 diabetes mellitus with diabetic autonomic (poly)neuropathy; E78.1 Pure hyperglyceridemia; F32.9 Major depressive disorder, single episode, unspecified; F41.0 Panic disorder [episodic paroxysmal anxiety]; F41.1 Generalized anxiety disorder; F43.10 Post-traumatic stress disorder, unspecified; G89.4 Chronic pain syndrome; I25.10 Atherosclerotic heart disease of native coronary artery without angina pectoris; K21.9 Gastro-esophageal reflux disease without esophagitis; E78.5 Hyperlipidemia, unspecified; R10.9 Unspecified abdominal pain; Z79.4 Long term (current) use of insulin; Z79.899 Other long term (current) drug therapy; Z88.6 Allergy status to analgesic agent
CPT/HCPCS: 36415; 80053; 81003; 82009; 82150; 83605; 83690; 83735; 85025; 96361; 96365; 96375; 96376; 99285

== ENCOUNTER 2016-06-09 09:46 | Inpatient (IN) | payer MEDICARE ==
[2016-06-09] MEDS ORDERED: METOCLOPRAMIDE 5 MG/ML 2 ML VIAL IVP STA (10:05)
[2016-06-09] MEDS ORDERED: ACETAMINOPHEN IV (For NPO) 1,000 MG in EMPTY BAG 1 BAG IVPB ONE (10:05)
[2016-06-09] MEDS ORDERED: SODIUM CHLORIDE 0.9% 2,000 ML IV STA (10:05)
--- NOTE | 2016-06-09 10:11 | ED ---
Abdominal Pain HPI - General Chief Complaint: Abdominal Pain Stated Complaint: HYPERGLYCEMIA, PAIN Time Seen by Provider: 06/09/16 09:59 Source: patient, RN notes reviewed Mode of arrival: ambulatory Limitations: no limitations - History of Present Illness Initial Comments: 51-year-old female presents to the emergency department with a chief complaint of elevated glucose and abdominal pain. Patient states she suffers from chronic pancreatitis due to elevated triglycerides. Patient states that she also has had a reading of high on her glucose monitor this morning. Patient states last time she used her insulin was last night. Patient states she did not eat today so she did not feel comfortable taking her insulin. Patient states that she hasn't had any fever chills this. Patient denies any nausea but states she has had some vomiting and diarrhea. Patient denies any burning or stinging with urination. Patient states that she was concerned due to the high sugars as abdominal pain so she thought maybe her pancreatitis is flaring up and possibly sugar was too high and she probably needs to be admitted. Patient states that she is not currently having any other symptoms. Patient denies any recent fever, chills, shortness of breath, chest pain, back pain, numbness or tingling, dysuria or hematuria, constipation, headaches or visual changes, or any other current symptoms. - Related Data Home Medications Medication Instructions Recorded Confirmed Lisinopril [Zestril] 20 mg PO DAILY 09/09/13 06/09/16 HYDROmorphone [Dilaudid] 2 mg PO Q8H PRN 09/17/14 06/09/16 Multivitamins, Thera [Multivitamin] 1 tab PO DAILY 09/17/14 06/09/16 Atenolol [Tenormin] 100 mg PO DAILY 11/19/14 06/09/16 Calcium Carb-Vit D 500Mg-200Un 1 tab PO BID 11/19/14 06/09/16 [Oscal 500+D] Mirtazapine [Remeron] 45 mg PO HS 11/19/14 06/09/16 Rosuvastatin Calcium [Crestor] 40 mg PO HS 11/19/14 06/09/16 Insulin Aspart [NovoLOG Flexpen] 26 unit SQ AC-BRKFST 10/14/15 06/09/16 Insulin Aspart [NovoLOG Flexpen] 26 unit SQ AC-LUNCH 10/14/15 06/09/16 Insulin Aspart [NovoLOG Flexpen] 36 units SQ AC-SUPPER 10/14/15 06/09/16 Pancreatic Enzymes Otc(Unknown) 1 cap PO AC-TID 10/14/15 06/09/16 Cetirizine HCl [Zyrtec] 10 mg PO DAILY 02/04/16 06/09/16 Niacin 1,000 mg PO HS 02/04/16 06/09/16 clonazePAM [KlonoPIN] 2 mg PO HS 02/04/16 06/09/16 Previous Rx's Medication Instructions Recorded Fenofibrate [Lofibra] 160 mg PO HS tab 08/09/14 Gabapentin [Neurontin] 200 mg PO BID cap 08/09/14 Metoclopramide [Reglan] 5 mg PO ACHS tab 08/09/14 Prochlorperazine [Compazine] 10 mg PO TID PRN #0 tab 08/09/14 Sertraline [Zoloft] 200 mg PO DAILY tab 08/09/14 clonazePAM [KlonoPIN] 1 mg PO DAILY tab 08/09/14 fentaNYL 25MCG/HR PATCH [Duragesic 1 patch TRANSDERM Q72H #0 07/10/15 25MCG/HR] Dicyclomine [Bentyl] 10 mg PO TID PRN #90 cap 03/22/16 Famotidine [Pepcid] 20 mg PO BID #0 03/22/16 Insulin Detemir [Levemir] 50 unit SQ HS #0 vial 03/22/16 Allergies Allergy/AdvReac Type Severity Reaction Status Date / Time NSAIDS (Non-Steroidal Allergy Rash/Hives Verified 06/09/16 10:29 Anti-Inflamma Review of Systems ROS Statement: Those systems with pertinent positive or pertinent negative responses have been documented in the HPI. ROS Other: All systems not noted in ROS Statement are negative. Past Medical History Past Medical History: Coronary Artery Disease (CAD), Diabetes Mellitus, GERD/ Reflux, Hyperlipidemia, Hypertension Additional Past Medical History / Comment(s): IDDM type I per pt, recurrent DKA in past, hypertensive heart disease, chronic pain syndrome, hypertriglyceridemia , chronic pancreatitis, chronic abdominal pain, gastroparesis, severe GERD, diabetic polyneuropathy mostly in hands and alittle in feet bilaterally, infectious colitis, perimenopausal. History of Any Multi-Drug Resistant Organisms: None Reported Past Surgical History: Cholecystectomy Additional Past Surgical History / Comment(s): Biliary stent through an ERCP that was performed at [facility] and stent removed 2007, lap jenn, colonoscopy, ERCP. Past Anesthesia/Blood Transfusion Reactions: No Reported Reaction Additional Past Anesthesia/Blood Transfusion Reaction / Comment(s): Pt has never received blood. Past Psychological History: Anxiety, Depression, Panic Disorder, PTSD Additional Psychological History / Comment(s): Pt lives in her home with her gadiel , son-in-law and 2 grandchildren. She is independent. She currently is on disability. She drives a car a limited amount-family drive her places at times. She has anxiety and occasional anxiety-panic attacks. She sees Dr. Fink at [facility] and is councelled by Chad Samuels. She states her current psych med rigeme is working well. Her gadiel and dad help her out. She has a rescue dog. Smoking Status: Never smoker Past Alcohol Use History: None Reported Past Drug Use History: None Reported - Past Family History Father Family Medical History: No Reported History Additional Family Medical History / Comment(s): Father had severe anxiety and was hospitalized for this at times. Mother Family Medical History: Cancer Additional Family Medical History / Comment(s): Mother of metastatic breast CA at the age of 42yrs. General Exam - General Exam Comments Initial Comments: General: The patient is awake and alert, in no distress, and does not appear acutely ill. Eye: Pupils are equal, round and reactive to light, extra-ocular movements are intact; there is normal conjunctiva bilaterally. No signs of icterus. Ears, nose, mouth and throat: There are moist mucous membranes and no oral lesions. Neck: The neck is supple, there is no tenderness . Cardiovascular: There is a regular rate and rhythm. No murmur, rub or gallop is appreciated. Respiratory: Lungs are clear to auscultation, respirations are non-labored, breath sounds are equal. No wheezes, stridor, rales, or rhonchi. Gastrointestinal: Soft, non-distended, non-tender abdomen without masses or organomegaly noted. There is no rebound or guarding present. No CVA tenderness. Bowel sounds are unremarkable. Back: There is no tenderness to palpation in the midline. There is no obvious deformity. No rashes noted. Musculoskeletal: Normal ROM, no tenderness, There is no pedal edema. There is no calf tenderness or swelling. Sensation intact. Pulses equal bilaterally 2+. Neurological: CN II-XII intact, There are no obvious motor or sensory deficits. Coordination appears grossly intact. Speech is normal. Skin: Skin is warm and dry and no rashes or lesions are noted. Psychiatric: Cooperative, appropriate mood & affect, normal judgment. Limitations: no limitations Course Vital Signs 06/09/16 09:51 Temperature 98.7 F Pulse Rate 120 H Respiratory 20 Rate Blood Pressure 140/92 O2 Sat by Pulse 97 Oximetry Medical Decision Making - Medical Decision Making 51-year-old female presents emergency Department chief complaint of hyperglycemia and abdominal pain. The patient patient does appear to have hyperglycemia as well as an elevated lactic acid. Patient's on-call physician was called and Dr. Meraz who does agree to the admission. With the patient insulin drip and they would like nephrology consult. Discussed with patient and agree with the plan. - Lab Data Result diagrams: 06/09/16 10:26 06/09/16 10:26 Lab Results 06/09/16 06/09/16 06/09/16 Range/Units 10:26 10:26 10:26 WBC 6.3 (3.8-10.6) k/uL RBC 4.72 (3.80-5.40) m/uL Hgb 14.7 (11.4-16.0) gm/dL Hct 44.4 (34.0-46.0) % MCV 94.1 (80.0-100.0) fL MCH 31.2 (25.0-35.0) pg MCHC 33.2 (31.0-37.0) g/dL RDW 13.1 (11.5-15.5) % Plt Count 162 (150-450) k/uL Neutrophils % 82 % Lymphocytes % 15 % Monocytes % 2 % Eosinophils % 0 % Basophils % 0 % Neutrophils # 5.2 (1.3-7.7) k/uL Lymphocytes # 0.9 L (1.0-4.8) k/uL Monocytes # 0.1 (0-1.0) k/uL Eosinophils # 0.0 (0-0.7) k/uL Basophils # 0.0 (0-0.2) k/uL PT (9.0-12.0) sec INR (<1.1) APTT (22.0-30.0) sec VBG pH (7.31-7.41) VBG pCO2 (37-51) mmHg VBG HCO3 (24-28) mmol/L Sodium 141 (137-145) mmol/L Potassium 3.9 (3.5-5.1) mmol/L Chloride 105 (98-107) mmol/L Carbon Dioxide 11 L (22-30) mmol/L Anion Gap 25 mmol/L BUN 12 (7-17) mg/dL Creatinine 0.59 (0.52-1.04) mg/dL Est GFR (MDRD) Af Amer >60 (>60 ml/min/1.73 sqM) Est GFR (MDRD) Non-Af >60 (>60 ml/min/1.73 sqM) Glucose 596 H* (74-99) mg/dL Plasma Lactic Acid [place] 10.0 H* (0.7-2.0) mmol/L Calcium 10.0 (8.4-10.2) mg/dL Total Bilirubin 0.8 (0.2-1.3) mg/dL AST 39 H (14-36) U/L ALT 31 (9-52) U/L Alkaline Phosphatase 158 H (38-126) U/L Total Protein 7.6 (6.3-8.2) g/dL Albumin 4.7 (3.5-5.0) g/dL Amylase 67 (30-110) U/L Lipase 46 (23-300) U/L Urine Color Urine Appearance (Clear) Urine pH (5.0-8.0) Ur Specific [place] (1.001-1.035) Urine Protein (Negative) Urine Glucose (UA) (Negative) Urine Ketones (Negative) Urine Blood (Negative) Urine Nitrate (Negative) Urine Bilirubin (Negative) Urine Urobilinogen (<2.0) mg/dL Ur Leukocyte Esterase (Negative) Acetone, Qual Negative (Negative) 06/09/16 06/09/16 06/09/16 Range/Units 10:26 10:50 11:39 WBC (3.8-10.6) k/uL RBC (3.80-5.40) m/uL Hgb (11.4-16.0) gm/dL Hct (34.0-46.0) % MCV (80.0-100.0) fL MCH (25.0-35.0) pg MCHC (31.0-37.0) g/dL RDW (11.5-15.5) % Plt Count (150-450) k/uL Neutrophils % % Lymphocytes % % Monocytes % % Eosinophils % % Basophils % % Neutrophils # (1.3-7.7) k/uL Lymphocytes # (1.0-4.8) k/uL Monocytes # (0-1.0) k/uL Eosinophils # (0-0.7) k/uL Basophils # (0-0.2) k/uL PT 10.3 (9.0-12.0) sec INR 1.0 (<1.1) APTT 24.0 (22.0-30.0) sec VBG pH 7.32 (7.31-7.41) VBG pCO2 29 L (37-51) mmHg VBG HCO3 14 L (24-28) mmol/L Sodium (137-145) mmol/L Potassium (3.5-5.1) mmol/L Chloride (98-107) mmol/L Carbon Dioxide (22-30) mmol/L Anion Gap mmol/L BUN (7-17) mg/dL Creatinine (0.52-1.04) mg/dL Est GFR (MDRD) Af Amer (>60 ml/min/1.73 sqM) Est GFR (MDRD) Non-Af (>60 ml/min/1.73 sqM) Glucose (74-99) mg/dL Plasma Lactic Acid [place] (0.7-2.0) mmol/L Calcium (8.4-10.2) mg/dL Total Bilirubin (0.2-1.3) mg/dL AST (14-36) U/L ALT (9-52) U/L Alkaline Phosphatase (38-126) U/L Total Protein (6.3-8.2) g/dL Albumin (3.5-5.0) g/dL Amylase (30-110) U/L Lipase (23-300) U/L Urine Color Light Yellow Urine Appearance Clear (Clear) Urine pH 5.0 (5.0-8.0) Ur Specific [place] 1.028 (1.001-1.035) Urine Protein Negative (Negative) Urine Glucose (UA) 4+ H (Negative) Urine Ketones Negative (Negative) Urine Blood Negative (Negative) Urine Nitrate Negative (Negative) Urine Bilirubin Negative (Negative) Urine Urobilinogen <2.0 (<2.0) mg/dL Ur Leukocyte Esterase Negative (Negative) Acetone, Qual (Negative) - Radiology Data Radiology results: report reviewed, image reviewed Disposition Clinical Impression: HHNC (hyperglycemic hyperosmolar nonketotic coma), Chronic abdominal pain, Lactic acidosis Disposition: ADMITTED IP TO THIS [facility] Condition: Stable Time of Disposition: 12:42 Decision Date: 06/09/16 Decision Time: 12:42
[2016-06-09 10:42] LABS: Basophils % (A) 0 %; CH 31.6; CHCM 33.8; Eosinophils % (A) 0 %; HCT 44.4 % (34.0-46.0); HDW 3.01; HGB 14.7 gm/dL (11.4-16.0); Luc # (Auto) 0.05; Luc % (Auto) 1; Lymphocytes # (A) 0.9 k/uL (1.0-4.8); Lymphocytes % (A) 15 %; MCH 31.2 pg (25.0-35.0); MCHC 33.2 g/dL (31.0-37.0); MCV 94.1 fL (80.0-100.0); Mean Platelet Volume 7.3; Monocytes # (A) 0.1 k/uL (0-1.0); Monocytes % (A) 2 %; Neutrophils # (A) 5.2 k/uL (1.3-7.7); Neutrophils % (A) 82 %; RBC 4.72 m/uL (3.80-5.40); RDW 13.1 % (11.5-15.5); WBC 6.3 k/uL (3.8-10.6); WBC (Perox) 6.19
[2016-06-09 10:43] LABS: Appearance,Urine Clear (Clear); Bilirubin,Urine Negative (Negative); Glucose,Urine (UA) 4+ (Negative); Ketones,Urine Negative (Negative); Leukocyte Esterase,Urine Negative (Negative); Nitrite,Urine Negative (Negative); Protein,Urine Negative (Negative); Specific Gravity,Urine 1.028 (1.001-1.035); UA Billing (MACRO vs. MICRO) CHEM; Urobilinogen,Urine <2.0 mg/dL (<2.0)
--- NOTE | 2016-06-09 10:48 | XR ---
EXAMINATION TYPE: XR abdomen 2V DATE OF EXAM ORDERED: 06/09/2016 10:42 AM HISTORY: Abdominal pain and diarrhea. COMPARISON: Previous study dated 03/18/2016. FINDINGS: There has been a previous cholecystectomy. There is mild gaseous distention of the colon. There are multiple air-fluid levels. There is a small amount of small bowel gas. There are phleboliths within the pelvis. IMPRESSION: FINDINGS CONSISTENT WITH COLONIC ILEUS.
[2016-06-09 10:58] LABS: ALT 31 U/L (9-52); Alkaline Phosphatase 158 U/L (38-126); Amylase 67 U/L (30-110); Anion Gap 25 mmol/L; Blood Urea Nitrogen 12 mg/dL (7-17); Carbon Dioxide 11 mmol/L (22-30); Chloride 105 mmol/L (98-107); Non-African American GFR(MDRD) >60 (>60 ml/min/1.73 sqM); Potassium 3.9 mmol/L (3.5-5.1); Sodium 141 mmol/L (137-145); Total Bilirubin 0.8 mg/dL (0.2-1.3); Total Protein 7.6 g/dL (6.3-8.2)
[2016-06-09 11:05] LABS: AST 39 U/L (14-36)
[2016-06-09] MEDS ORDERED: SODIUM CHLORIDE 0.9% 1,000 ML IV STA (11:05)
[2016-06-09 11:06] LABS: Glucose 596 mg/dL (74-99)
[2016-06-09 11:19] LABS: Prothrombin Time 10.3 sec (9.0-12.0)
[2016-06-09 11:56] LABS: VBG PH 7.32 (7.31-7.41)
[2016-06-09] MEDS ORDERED: INSULIN LISPRO (humaLOG) 300 UNIT/3 ML VIAL SQ ONE (11:58)
[2016-06-09] MEDS ORDERED: INSULIN REGULAR BOLUS (FROM DRIP BAG) IV ONE (12:42)
[2016-06-09] MEDS ORDERED: PROCHLORPERAZINE 10 MG TAB PO PRN (12:43)
[2016-06-09] MEDS ORDERED: DICYCLOMINE 10 MG CAP PO PRN (12:43)
[2016-06-09] MEDS ORDERED: HYDROmorphone 2 MG TAB PO PRN (12:43)
[2016-06-09] MEDS: INSULIN REGULAR 100 UNIT in SODIUM CHLORIDE 0.9% 100 ML IV SCH ×2 (13:30→14:41)
[2016-06-09 13:51] LABS: Glucose,Whole Blood 468 mg/dL (75-99)
[2016-06-09 14:39] LABS: Glucose,Whole Blood 346 mg/dL (75-99)
[2016-06-09] MEDS: SODIUM CHLORIDE 0.9% 1,000 ML IV SCH ×3 (15:30→23:23)
[2016-06-09] MEDS: HYDROmorphone 1 MG/ML 1 ML SYRINGE IVP PRN ×4 (15:46→23:55)
[2016-06-09 16:06] LABS: Chloride 111 mmol/L (98-107); Glucose 241 mg/dL (74-99); Potassium 3.5 mmol/L (3.5-5.1)
[2016-06-09 16:07] LABS: Anion Gap 17 mmol/L; Blood Urea Nitrogen 9 mg/dL (7-17); Carbon Dioxide 15 mmol/L (22-30); Non-African American GFR(MDRD) >60 (>60 ml/min/1.73 sqM); Phosphorous 2.8 mg/dL (2.5-4.5); Sodium 143 mmol/L (137-145)
[2016-06-09 16:07] LABS: Glucose,Whole Blood 199 mg/dL (75-99)
[2016-06-09] MEDS: D5-0.45% NACL WITH KCL 20MEQ/L 1,000 ML IV SCH ×2 (16:24→22:16)
[2016-06-09 17:00] LABS: Glucose,Whole Blood 194 mg/dL (75-99)
[2016-06-09 18:21] LABS: Glucose,Whole Blood 205 mg/dL (75-99)
[2016-06-09] MEDS: METOCLOPRAMIDE 5 MG TAB PO SCH ×2 (18:30→20:03)
[2016-06-09 19:05] LABS: Glucose,Whole Blood 271 mg/dL (75-99)
[2016-06-09] MEDS: FENOFIBRATE 160 MG TAB PO SCH (20:02)
[2016-06-09] MEDS: CALCIUM CARB-VIT D 500MG-200UN 1 EACH TAB PO SCH (20:02)
[2016-06-09] MEDS: MIRTAZAPINE 45 MG TABLET PO SCH (20:02)
[2016-06-09] MEDS: ATORVASTATIN 80 MG TAB PO SCH (20:02)
[2016-06-09] MEDS: NIACIN TR 500 MG CAPSULE.ER PO SCH (20:02)
[2016-06-09] MEDS: FAMOTIDINE 20 MG TAB PO SCH (20:02)
[2016-06-09] MEDS: GABAPENTIN 100 MG CAP PO SCH (20:03)
[2016-06-09 20:13] LABS: Glucose,Whole Blood 270 mg/dL (75-99)
[2016-06-09] MEDS: clonazePAM 1 MG TAB PO SCH (20:14)
[2016-06-09 20:18] LABS: Anion Gap 15 mmol/L; Blood Urea Nitrogen 7 mg/dL (7-17); Carbon Dioxide 16 mmol/L (22-30); Chloride 110 mmol/L (98-107); Glucose 258 mg/dL (74-99); Non-African American GFR(MDRD) >60 (>60 ml/min/1.73 sqM); Phosphorous 2.7 mg/dL (2.5-4.5); Potassium 3.7 mmol/L (3.5-5.1); Sodium 141 mmol/L (137-145)
[2016-06-09] MEDS ORDERED: INSULIN DETEMIR 100 UNIT/ML 10 ML VIAL SQ SCH (21:00)
[2016-06-09 21:14] LABS: Glucose,Whole Blood 270 mg/dL (75-99)
[2016-06-09] MEDS ORDERED: Potassium Replacement Protocol 1 EACH MISC MISCELLANE PRN (21:20)
[2016-06-09] MEDS ORDERED: Magnesium Replacement Protocol 1 EACH MISC MISCELLANE PRN ×3 (21:50→22:32)
[2016-06-09] MEDS ORDERED: POTASSIUM CHLORIDE ER 20 MEQ TAB.ER PO ONE (22:00)
[2016-06-09 22:20] LABS: Glucose,Whole Blood 211 mg/dL (75-99)
[2016-06-09] MEDS: MAGNESIUM SULFATE-D5W PMX 1 GM in DEXTROSE/WATER 1 100ML.BAG IVPB SCH ×2 (23:17→23:55)
[2016-06-09 23:22] LABS: Glucose,Whole Blood 198 mg/dL (75-99)
[2016-06-10 00:04] LABS: Glucose,Whole Blood 149 mg/dL (75-99)
[2016-06-10 01:05] LABS: Glucose,Whole Blood 131 mg/dL (75-99)
[2016-06-10 02:08] LABS: Glucose,Whole Blood 127 mg/dL (75-99)
[2016-06-10] MEDS: HYDROmorphone 1 MG/ML 1 ML SYRINGE IVP PRN ×5 (02:16→15:05)
[2016-06-10 03:27] LABS: Glucose,Whole Blood 140 mg/dL (75-99)
[2016-06-10 04:18] LABS: Glucose,Whole Blood 163 mg/dL (75-99)
[2016-06-10 05:14] LABS: CHCM 34.5; HCT 37.3 % (34.0-46.0); HGB 12.8 gm/dL (11.4-16.0); MCH 30.9 pg (25.0-35.0); MCHC 34.2 g/dL (31.0-37.0); MCV 90.2 fL (80.0-100.0); Mean Platelet Volume 6.6; RBC 4.14 m/uL (3.80-5.40); RDW 13.1 % (11.5-15.5); WBC 9.3 k/uL (3.8-10.6)
[2016-06-10] MEDS: SODIUM CHLORIDE 0.9% 1,000 ML IV SCH ×3 (05:33→16:07)
[2016-06-10] MEDS: INSULIN REGULAR 100 UNIT in SODIUM CHLORIDE 0.9% 100 ML IV SCH ×2 (05:35→20:23)
[2016-06-10 05:45] LABS: Anion Gap 11 mmol/L; Blood Urea Nitrogen 6 mg/dL (7-17); Calcium 8.9 mg/dL (8.4-10.2); Carbon Dioxide 18 mmol/L (22-30); Chloride 113 mmol/L (98-107); Glucose 181 mg/dL (74-99); Magnesium 2.1 mg/dL (1.6-2.3); Non-African American GFR(MDRD) >60 (>60 ml/min/1.73 sqM); Phosphorous 2.7 mg/dL (2.5-4.5); Sodium 142 mmol/L (137-145)
[2016-06-10 05:51] LABS: Glucose,Whole Blood 172 mg/dL (75-99)
[2016-06-10] MEDS: D5-0.45% NACL WITH KCL 20MEQ/L 1,000 ML IV SCH ×3 (06:46→20:23)
[2016-06-10 06:49] LABS: Glucose,Whole Blood 217 mg/dL (75-99)
[2016-06-10 08:03] LABS: Glucose,Whole Blood 193 mg/dL (75-99)
[2016-06-10 08:30] LABS: Hemoglobin A1C 9.3 % (4.2-6.1)
[2016-06-10 08:30] LABS: Glucose,Whole Blood 220 mg/dL (75-99)
[2016-06-10] MEDS: METOCLOPRAMIDE 5 MG TAB PO SCH ×4 (08:37→21:47)
[2016-06-10] MEDS: ATENOLOL 50 MG TAB PO SCH (08:37)
[2016-06-10] MEDS: CALCIUM CARB-VIT D 500MG-200UN 1 EACH TAB PO SCH ×2 (08:38→21:46)
[2016-06-10] MEDS: GABAPENTIN 100 MG CAP PO SCH ×2 (08:39→21:47)
[2016-06-10] MEDS: FAMOTIDINE 20 MG TAB PO SCH ×2 (08:39→21:47)
[2016-06-10] MEDS: LISINOPRIL 20 MG TAB PO SCH (08:40)
[2016-06-10] MEDS: LORATADINE 10 MG TAB PO SCH (08:40)
[2016-06-10] MEDS: SERTRALINE 100 MG TAB PO SCH (08:40)
[2016-06-10 09:43] LABS: Glucose,Whole Blood 275 mg/dL (75-99)
[2016-06-10] MEDS: clonazePAM 1 MG TAB PO SCH ×2 (09:52→21:47)
[2016-06-10 10:28] LABS: Glucose,Whole Blood 305 mg/dL (75-99)
[2016-06-10 10:42] VITALS: BMI 24.8
[2016-06-10 10:59] LABS: Glucose,Whole Blood 307 mg/dL (75-99)
[2016-06-10 11:23] LABS: ALT 28 U/L (9-52); AST 32 U/L (14-36); Alkaline Phosphatase 75 U/L (38-126); Anion Gap 13 mmol/L; Blood Urea Nitrogen 4 mg/dL (7-17); Calcium 8.6 mg/dL (8.4-10.2); Carbon Dioxide 16 mmol/L (22-30); Chloride 110 mmol/L (98-107); Glucose 307 mg/dL (74-99); Non-African American GFR(MDRD) >60 (>60 ml/min/1.73 sqM); Potassium 3.8 mmol/L (3.5-5.1); Sodium 139 mmol/L (137-145); Total Bilirubin 0.8 mg/dL (0.2-1.3); Total Protein 5.7 g/dL (6.3-8.2)
[2016-06-10] MEDS: MULTIVITAMINS, THERA 1 EACH TAB PO SCH (11:49)
[2016-06-10 11:57] LABS: Glucose,Whole Blood 286 mg/dL (75-99)
[2016-06-10 13:22] LABS: Glucose,Whole Blood 239 mg/dL (75-99)
[2016-06-10 14:02] LABS: Glucose,Whole Blood 256 mg/dL (75-99)
--- NOTE | 2016-06-10 14:51 | P.HPIM ---
History of Present Illness H&P Date: 06/10/16 Chief Complaint: Diarrhea, abdominal pain This is a 51-year-old female showing of Dr. Borges with previous medical history significant for familial dyslipidemia, recurrent pancreatitis and chronic abdominal pain, thought to be due to hypertriglyceridemia, hypertension and hypertensive cardiovascular disease, diabetes mellitus type 2 with recurrent diabetic ketoacidosis in the past. Patient was brought into the emergency department at [facility] complaints that she was having abdominal pain due to her chronic pancreatitis and diarrhea and not eating and not taking her insulin. He was afebrile, tachycardic at 120 and hypertensive at 140/92. CBC was normal. Lactic acid was 10, AST 39 and alkaline phosphatase 159. Initial blood sugar 596. Urinalysis was nitrate and leukoesterase negative. Abdominal x-ray was consistent with colonic ileus. The O2 was 16, GFR greater than 60. Hemoglobin A1c 9.3. Acetone negative Patient was started on insulin drip per DKA protocol and admitted to the intensive care unit. Actiq acid is down to 2.9. Blood sugars are improved to the 200s. She has had no further diarrhea. Review of Systems All systems: negative Constitutional: Denies chills, Denies fever Eyes: denies blurred vision, denies pain Ears, nose, mouth and throat: Denies headache, Denies sore throat Cardiovascular: Denies chest pain, Denies shortness of breath Respiratory: Denies cough Gastrointestinal: Reports abdominal pain, Reports diarrhea, Reports loss of appetite, Denies melena, Denies nausea, Denies vomiting Genitourinary: Denies dysuria, Denies hematuria, Denies urinary frequency Musculoskeletal: Denies myalgias Integumentary: Denies pruritus, Denies rash Neurological: Denies numbness, Denies weakness Psychiatric: Denies anxiety, Denies depression Endocrine: Reports high blood sugars, Denies fatigue, Denies weight change Past Medical History Past Medical History: Coronary Artery Disease (CAD), Diabetes Mellitus, GERD/ Reflux, Hyperlipidemia, Hypertension Additional Past Medical History / Comment(s): IDDM type I per pt, recurrent DKA in past, hypertensive heart disease, chronic pain syndrome, hypertriglyceridemia , chronic pancreatitis, chronic abdominal pain, gastroparesis, severe GERD, diabetic polyneuropathy mostly in hands and alittle in feet bilaterally, infectious colitis. History of Any Multi-Drug Resistant Organisms: None Reported Past Surgical History: Cholecystectomy Additional Past Surgical History / Comment(s): Biliary stent through an ERCP that was performed at [facility] and stent removed 2007, lap jenn, colonoscopy, ERCP. Past Anesthesia/Blood Transfusion Reactions: No Reported Reaction Additional Past Anesthesia/Blood Transfusion Reaction / Comment(s): Pt has never received blood."CLAUSTERPHOBIA" Past Psychological History: Anxiety, Depression, Panic Disorder, PTSD Additional Psychological History / Comment(s): Pt lives in her home with her gadiel , son-in-law and 2 grandchildren. She is independent. She currently is on disability. She drives a car a limited amount-family drive her places at times. She has anxiety and occasional anxiety-panic attacks. She sees Dr. Fink at [facility] and is councelled by Chad Samuels. She states her current psych med rigeme is working well. Her gadiel and dad help her out. She has a rescue dog. Smoking Status: Never smoker Past Alcohol Use History: None Reported Past Drug Use History: None Reported - Past Family History Father Family Medical History: No Reported History Additional Family Medical History / Comment(s): Father had severe anxiety and was hospitalized for this at times. Mother Family Medical History: Cancer Additional Family Medical History / Comment(s): Mother of metastatic breast CA at the age of 42yrs. Medications and Allergies Home Medications Medication Instructions Recorded Confirmed Type Lisinopril [Zestril] 20 mg PO DAILY 09/09/13 06/09/16 History HYDROmorphone [Dilaudid] 2 mg PO Q8H PRN 09/17/14 06/09/16 History Multivitamins, Thera [Multivitamin] 1 tab PO DAILY 09/17/14 06/09/16 History Atenolol [Tenormin] 100 mg PO DAILY 11/19/14 06/09/16 History Calcium Carb-Vit D 500Mg-200Un 1 tab PO BID 11/19/14 06/09/16 History [Oscal 500+D] Mirtazapine [Remeron] 45 mg PO HS 11/19/14 06/09/16 History Rosuvastatin Calcium [Crestor] 40 mg PO HS 11/19/14 06/09/16 History Insulin Aspart [NovoLOG Flexpen] 26 unit SQ AC-BRKFST 10/14/15 06/09/16 History Insulin Aspart [NovoLOG Flexpen] 26 unit SQ AC-LUNCH 10/14/15 06/09/16 History Insulin Aspart [NovoLOG Flexpen] 36 units SQ AC-SUPPER 10/14/15 06/09/16 History Pancreatic Enzymes Otc(Unknown) 1 cap PO AC-TID 10/14/15 06/09/16 History Cetirizine HCl [Zyrtec] 10 mg PO DAILY 02/04/16 06/09/16 History Niacin 1,000 mg PO HS 02/04/16 06/09/16 History clonazePAM [KlonoPIN] 2 mg PO HS 02/04/16 06/09/16 History Allergies Allergy/AdvReac Type Severity Reaction Status Date / Time NSAIDS (Non-Steroidal Allergy Rash/Hives Verified 06/09/16 10:29 Anti-Inflamma Physical Exam Vitals: Vital Signs Temp Pulse Resp BP BP Pulse Ox 06/10/16 10:00 75 15 128/56 99 06/10/16 09:00 87 18 112/69 97 06/10/16 08:00 97.8 F 64 20 112/69 97 06/10/16 07:00 68 44 H 99/60 99 06/10/16 06:00 64 44 H 99/60 98 06/10/16 05:00 66 39 H 106/62 98 06/10/16 04:00 98.2 F 69 25 H 106/62 106/62 99 06/10/16 03:00 67 68 H 103/58 98 06/10/16 02:00 72 47 H 103/58 99 06/10/16 01:00 69 46 H 98 06/10/16 00:00 98.0 F 66 68 H 126/71 103/58 97 06/09/16 23:34 69 55 H 126/71 97 06/09/16 23:00 71 67 H 126/71 97 06/09/16 22:00 78 12 126/71 95 06/09/16 21:00 87 22 123/75 96 06/09/16 20:00 97.9 F 81 41 H 123/75 123/75 98 06/09/16 19:00 97.9 F 89 17 123/75 96 06/09/16 18:00 91 34 H 98 06/09/16 17:00 94 29 H 97 02/22/17 16:00 89 15 128/74 93 L 06/09/16 15:10 97.5 F L 89 23 128/74 94 L 06/09/16 15:00 88 17 128/74 95 06/09/16 14:50 89 20 128/74 96 06/09/16 14:40 89 37 H 06/09/16 14:27 97.9 F 88 17 108/59 96 06/09/16 13:39 97.6 F 90 17 118/68 96 Intake and Output 06/09/16 06/10/16 06/10/16 22:59 06:59 14:59 Intake Total 1057.621 622.95 2004.378 Balance 1057.621 622.95 2003.378 Intake: Intake, IV Titration 1057.621 622.95 2004.378 Amount D5-0.45% NaCl with KCl 600 1800 20Meq/l 1,000 ml @ 150 mls/hr IV .[id number] [facility] Rx# :[id number] Insulin Regular 100 unit 57.621 22.95 4.378 In Sodium Chloride 0.9% 100 ml @ 0.1 UNITS/KG/HR 6.64 mls/hr IV .[id number] [facility] Rx#:[id number] Magnesium Sulfate-D5w Pmx 200 1 gm In Dextrose/Water 1 100ml.bag @ 100 mls/hr IVPB Q1H [facility] Rx#: [id number] Sodium Chloride 0.9% 1, 1000 000 ml @ 200 mls/hr IV . Q5H [facility] Rx#:[id number] Other: # Voids 2 2 Weight 65.771 kg 65.7 kg 65.7 kg Patient Weight 06/11/16 06:59 Weight 65.7 kg General appearance: average body habitus, no acute distress - EENT Eyes: anicteric sclerae, PERRLA, no ptosis, no scleral icterus, normal appearance ENT: hearing grossly normal, normal oropharynx, no thrush Ears: bilateral: normal - Neck Neck: no lymphadenopathy, normal ROM, no rigidity, no stridor, no thyromegaly Carotids: bilateral: upstroke normal Thyroid: bilateral: normal size - Respiratory Respiratory: bilateral: diminished, negative: dullness, rales, rhonchi, wheezing , prolonged expiration, prolonged inspiration - Cardiovascular Rhythm: regular Heart sounds: normal: S1, S2 Abnormal Heart Sounds: no systolic murmur, no S3 Gallop, no S4 Gallop, no click - Gastrointestinal General gastrointestinal: normal bowel sounds, soft, no splenomegaly, no tenderness, no umbilical hernia, no ventral hernia - Integumentary Integumentary: normal, normal turgor - Neurologic Neurologic: CNII-XII intact - Musculoskeletal Musculoskeletal: generalized weakness, strength equal bilaterally - Psychiatric Psychiatric: A&O x's 3, appropriate affect, intact judgment & insight Results CBC & Chem 7: 06/10/16 04:31 06/10/16 11:00 Labs: Abnormal Lab Results - Last 24 Hours (Table) 06/09/16 06/09/16 06/09/16 Range/Units 13:46 14:37 15:27 Plt Count (150-450) k/uL Chloride 111 H (98-107) mmol/L Carbon Dioxide 15 L (22-30) mmol/L BUN (7-17) mg/dL Creatinine 0.50 L (0.52-1.04) mg/dL Glucose 241 H (74-99) mg/dL POC Glucose (mg/dL) 468 H 346 H (75-99) mg/dL Hemoglobin A1c (4.2-6.1) % Plasma Lactic Acid Dawit (0.7-2.0) mmol/L 06/09/16 06/09/16 06/09/16 Range/Units 15:27 16:06 16:59 Plt Count (150-450) k/uL Chloride (98-107) mmol/L Carbon Dioxide (22-30) mmol/L BUN (7-17) mg/dL Creatinine (0.52-1.04) mg/dL Glucose (74-99) mg/dL POC Glucose (mg/dL) 199 H 194 H (75-99) mg/dL Hemoglobin A1c (4.2-6.1) % Plasma Lactic Acid Dawit 5.6 H* (0.7-2.0) mmol/L 06/09/16 06/09/16 06/09/16 Range/Units 18:19 19:03 19:38 Plt Count (150-450) k/uL Chloride 110 H (98-107) mmol/L Carbon Dioxide 16 L (22-30) mmol/L BUN (7-17) mg/dL Creatinine 0.43 L (0.52-1.04) mg/dL Glucose 258 H (74-99) mg/dL POC Glucose (mg/dL) 205 H 271 H (75-99) mg/dL Hemoglobin A1c (4.2-6.1) % Plasma Lactic Acid Dawit (0.7-2.0) mmol/L 06/09/16 06/09/16 06/09/16 Range/Units 20:10 20:11 21:12 Plt Count (150-450) k/uL Chloride (98-107) mmol/L Carbon Dioxide (22-30) mmol/L BUN (7-17) mg/dL Creatinine (0.52-1.04) mg/dL Glucose (74-99) mg/dL POC Glucose (mg/dL) 270 H 270 H (75-99) mg/dL Hemoglobin A1c (4.2-6.1) % Plasma Lactic Acid Dawit 5.3 H* (0.7-2.0) mmol/L 06/09/16 06/09/16 06/10/16 Range/Units 22:18 23:20 00:03 Plt Count (150-450) k/uL Chloride (98-107) mmol/L Carbon Dioxide (22-30) mmol/L BUN (7-17) mg/dL Creatinine (0.52-1.04) mg/dL Glucose (74-99) mg/dL POC Glucose (mg/dL) 211 H 198 H 149 H (75-99) mg/dL Hemoglobin A1c (4.2-6.1) % Plasma Lactic Acid Dawit (0.7-2.0) mmol/L 06/10/16 06/10/16 06/10/16 Range/Units 01:03 02:07 03:22 Plt Count (150-450) k/uL Chloride (98-107) mmol/L Carbon Dioxide (22-30) mmol/L BUN (7-17) mg/dL Creatinine (0.52-1.04) mg/dL Glucose (74-99) mg/dL POC Glucose (mg/dL) 131 H 127 H 140 H (75-99) mg/dL Hemoglobin A1c (4.2-6.1) % Plasma Lactic Acid Dawit (0.7-2.0) mmol/L 02/06/10/16 06/10/16 Range/Units 04:13 04:31 04:31 Plt Count (150-450) k/uL Chloride 113 H (98-107) mmol/L Carbon Dioxide 18 L (22-30) mmol/L BUN 6 L (7-17) mg/dL Creatinine 0.50 L (0.52-1.04) mg/dL Glucose 181 H (74-99) mg/dL POC Glucose (mg/dL) 163 H (75-99) mg/dL Hemoglobin A1c 9.3 H (4.2-6.1) % Plasma Lactic Acid Dawit (0.7-2.0) mmol/L 06/10/16 06/10/16 06/10/16 Range/Units 04:31 04:31 05:45 Plt Count 146 L (150-450) k/uL Chloride (98-107) mmol/L Carbon Dioxide (22-30) mmol/L BUN (7-17) mg/dL Creatinine (0.52-1.04) mg/dL Glucose (74-99) mg/dL POC Glucose (mg/dL) 172 H (75-99) mg/dL Hemoglobin A1c (4.2-6.1) % Plasma Lactic Acid Dawit 2.9 H* (0.7-2.0) mmol/L 06/10/16 06/10/16 06/10/16 Range/Units 06:47 08:00 08:28 Plt Count (150-450) k/uL Chloride (98-107) mmol/L Carbon Dioxide (22-30) mmol/L BUN (7-17) mg/dL Creatinine (0.52-1.04) mg/dL Glucose (74-99) mg/dL POC Glucose (mg/dL) 217 H 193 H 220 H (75-99) mg/dL Hemoglobin A1c (4.2-6.1) % Plasma Lactic Acid Dawit (0.7-2.0) mmol/L 06/10/16 06/10/16 Range/Units 09:42 10:27 Plt Count (150-450) k/uL Chloride (98-107) mmol/L Carbon Dioxide (22-30) mmol/L BUN (7-17) mg/dL Creatinine (0.52-1.04) mg/dL Glucose (74-99) mg/dL POC Glucose (mg/dL) 275 H 305 H (75-99) mg/dL Hemoglobin A1c (4.2-6.1) % Plasma Lactic Acid Dawit (0.7-2.0) mmol/L Thrombosis Risk Factor Assmnt - DVT/VTE Prophylaxis DVT/VTE Prophylaxis: Mechanical Prophylaxis ordered - Choose All That Apply Any of the Below Risk Factors Present?: Yes Each Factor Represents 1 point: Age 41-60 years Other Risk Factors: No Other congenital or acquired thrombophilia - If yes, enter type in comment: No Thrombosis Risk Factor Assessment Total Risk Factor Score: 1 Thrombosis Risk Factor Assessment Level: Low Risk Assessment and Plan Plan: 1. Hyperosmolar nonketotic hyperglycemia. IV fluid, insulin drip, monitor the patient was a very closely every hour, and transition the patient to her Lantus at night if her blood with level is in the good range, since the patient does not have any significant acidosis at this point in time. 2. History of diabetes mellitus type 2 insulin requiring we will transition the patient back to Levemir and Humalog. 3. Hypertension and hypertensive cardiovascular disease with left ventricular hypertrophy we will continue the patient on atenolol 100 mg orally once every day as well as lisinopril 20 mg orally once every day. 4. Hyperlipidemia continue the patient on Crestor 40 mg orally once every day, fenofibrate 160 mg orally once every day,Niaspan 1000 g orally once every. 5. Diabetic polyneuropathy continue gabapentin 200 mg orally twice every day. 6. Anxiety generalized continue Klonopin 1 milligram in the evening and 1 mg in the morning. 7. Depression, recurrent continue Zoloft 200 mg orally once every day. 8. Gastroparesis continue Reglan 5 mg before each meal 3 times every day. 9. Chronic pancreatitis continue IV fluid resuscitation as well as current pain management in the form of Dilaudid along with fentanyl patch. 10. GERD continue PPI. 11. DVT prophylaxis early ambulation. 12. Full code. 13. Admit to inpatient. Estimated length of stay 2 midnights . Discharge plan: Return home Impression and plan of care have been directed as dictated by the signing physician. Amanda Kumar nurse practitioner acting as scribe for signing physician.
[2016-06-10 15:02] LABS: Glucose,Whole Blood 245 mg/dL (75-99)
[2016-06-10 17:16] LABS: Glucose,Whole Blood 228 mg/dL (75-99)
[2016-06-10 18:42] LABS: Glucose,Whole Blood 137 mg/dL (75-99)
[2016-06-10 20:08] LABS: Glucose,Whole Blood 245 mg/dL (75-99)
[2016-06-10 21:28] LABS: Glucose,Whole Blood 252 mg/dL (75-99)
[2016-06-10] MEDS: FENOFIBRATE 160 MG TAB PO SCH (21:47)
[2016-06-10] MEDS: MIRTAZAPINE 45 MG TABLET PO SCH (21:47)
[2016-06-10] MEDS: NIACIN TR 500 MG CAPSULE.ER PO SCH (21:47)
[2016-06-10] MEDS: ATORVASTATIN 80 MG TAB PO SCH (21:47)
[2016-06-10] MEDS: [UNRECOGNIZED DRUG - OTHER] PO SCH (22:03)
[2016-06-10 22:43] LABS: Glucose,Whole Blood 199 mg/dL (75-99)
[2016-06-10 23:41] LABS: Glucose,Whole Blood 195 mg/dL (75-99)
[2016-06-11] MEDS: HYDROmorphone 1 MG/ML 1 ML SYRINGE IVP PRN ×7 (00:22→23:08)
[2016-06-11 00:24] LABS: Glucose,Whole Blood 180 mg/dL (75-99)
[2016-06-11 01:52] LABS: Glucose,Whole Blood 166 mg/dL (75-99)
[2016-06-11 03:00] LABS: Glucose,Whole Blood 171 mg/dL (75-99)
[2016-06-11] MEDS: D5-0.45% NACL WITH KCL 20MEQ/L 1,000 ML IV SCH ×2 (03:46→06:03)
[2016-06-11 04:08] LABS: Glucose,Whole Blood 159 mg/dL (75-99)
[2016-06-11 05:10] LABS: Glucose,Whole Blood 176 mg/dL (75-99)
[2016-06-11 06:08] LABS: Glucose,Whole Blood 153 mg/dL (75-99)
[2016-06-11] MEDS: METOCLOPRAMIDE 5 MG TAB PO SCH ×4 (06:44→20:03)
[2016-06-11 07:10] LABS: Glucose,Whole Blood 172 mg/dL (75-99)
[2016-06-11 07:13] LABS: ALT 39 U/L (9-52); AST 32 U/L (14-36); Alkaline Phosphatase 74 U/L (38-126); Anion Gap 7 mmol/L; Bilirubin, Delta 0.3 mg/dL (0.0-0.2); Blood Urea Nitrogen 7 mg/dL (7-17); Calcium 9.3 mg/dL (8.4-10.2); Carbon Dioxide 20 mmol/L (22-30); Chloride 113 mmol/L (98-107); Glucose 168 mg/dL (74-99); Non-African American GFR(MDRD) >60 (>60 ml/min/1.73 sqM); Potassium 5.1 mmol/L (3.5-5.1); Sodium 140 mmol/L (137-145); Total Bilirubin 0.8 mg/dL (0.2-1.3); Total Protein 5.4 g/dL (6.3-8.2)
[2016-06-11 07:34] LABS: Basophils % (A) 0 %; CH 31.3; CHCM 34.8; Eosinophils # (A) 0.1 k/uL (0-0.7); Eosinophils % (A) 1 %; HCT 38.6 % (34.0-46.0); HDW 3.06; HGB 13.2 gm/dL (11.4-16.0); Luc # (Auto) 0.18; Luc % (Auto) 2; Lymphocytes # (A) 4.5 k/uL (1.0-4.8); Lymphocytes % (A) 50 %; MCH 30.8 pg (25.0-35.0); MCHC 34.1 g/dL (31.0-37.0); MCV 90.4 fL (80.0-100.0); Mean Platelet Volume 8.2; Monocytes # (A) 0.4 k/uL (0-1.0); Monocytes % (A) 5 %; Neutrophils # (A) 3.8 k/uL (1.3-7.7); Neutrophils % (A) 42 %; RBC 4.27 m/uL (3.80-5.40); RDW 13.4 % (11.5-15.5); WBC (Perox) 9.01
[2016-06-11 08:04] LABS: Manual Review Performed
[2016-06-11 08:05] LABS: Glucose,Whole Blood 220 mg/dL (75-99)
[2016-06-11] MEDS: clonazePAM 1 MG TAB PO SCH ×2 (09:09→20:11)
[2016-06-11] MEDS: SERTRALINE 100 MG TAB PO SCH (09:10)
[2016-06-11] MEDS: CALCIUM CARB-VIT D 500MG-200UN 1 EACH TAB PO SCH ×2 (09:10→20:02)
[2016-06-11] MEDS: ATENOLOL 50 MG TAB PO SCH (09:10)
[2016-06-11 09:11] LABS: Glucose,Whole Blood 269 mg/dL (75-99)
[2016-06-11] MEDS: LORATADINE 10 MG TAB PO SCH (09:11)
[2016-06-11] MEDS: GABAPENTIN 100 MG CAP PO SCH ×2 (09:11→20:03)
[2016-06-11] MEDS: LISINOPRIL 20 MG TAB PO SCH (09:11)
[2016-06-11] MEDS: FAMOTIDINE 20 MG TAB PO SCH ×2 (09:12→20:03)
[2016-06-11] MEDS: MULTIVITAMINS, THERA 1 EACH TAB PO SCH (11:41)
[2016-06-11] MEDS: INSULIN LISPRO (humaLOG) 300 UNIT/3 ML VIAL SQ SCH ×2 (12:08→18:46)
[2016-06-11 12:09] LABS: Glucose,Whole Blood 261 mg/dL (75-99)
[2016-06-11] MEDS ORDERED: INSULIN LISPRO (humaLOG) 300 UNIT/3 ML VIAL SQ SCH ×2 (12:30→17:30)
--- NOTE | 2016-06-11 12:33 | P.PN ---
Subjective This is a 51-year-old female showing of Dr. Borges with previous medical history significant for familial dyslipidemia, recurrent pancreatitis and chronic abdominal pain, thought to be due to hypertriglyceridemia, hypertension and hypertensive cardiovascular disease, diabetes mellitus type 2 with recurrent diabetic ketoacidosis in the past. Patient was brought into the emergency department at [facility] complaints that she was having abdominal pain due to her chronic pancreatitis and diarrhea and not eating and not taking her insulin. He was afebrile, tachycardic at 120 and hypertensive at 140/92. CBC was normal. Lactic acid was 10, AST 39 and alkaline phosphatase 159. Initial blood sugar 596. Urinalysis was nitrate and leukoesterase negative. Abdominal x-ray was consistent with colonic ileus. The O2 was 16, GFR greater than 60. Hemoglobin A1c 9.3. Acetone negative Patient was started on insulin drip per DKA protocol and admitted to the intensive care unit. Actiq acid is down to 2.9. Blood sugars are improved to the 200s. She has had no further diarrhea. 06/11: patient will be transitioned off insulin drip to home doses of Levemir, scheduled Humalog and Humalog scale. She will be transferred to the Medr floor with anticipation she'll be ready for discharge tomorrow. She has not had any further diarrhea. Consult placed with Dr. Henderson for gastroparesis and gastric emptying study has been ordered. Objective - Vital Signs Vital signs: Vital Signs Temp 98.3 F 06/11/16 00:00 Pulse 76 06/11/16 04:00 Resp 16 06/11/16 04:00 BP 101/76 06/11/16 04:00 Pulse Ox 95 06/11/16 04:00 Intake & Output 06/10/16 06/11/16 06/11/16 18:59 06:59 18:59 Intake Total 3235.398 22.802 2.222 Output Total 1100 Balance 3235.398 -1077.198 2.222 Weight 65.7 kg 69 kg Intake: Intake, IV Titration 3235.398 22.802 2.222 Amount D5-0.45% NaCl with KCl 3000 20Meq/l 1,000 ml @ 150 mls/hr IV .Q6H40M [facility] Rx# :[id number] Insulin Regular 100 unit 35.398 22.802 2.222 In Sodium Chloride 0.9% 100 ml @ 0.1 UNITS/KG/HR 6.64 mls/hr IV .[id number] [facility] Rx#:[id number] Magnesium Sulfate-D5w Pmx 200 1 gm In Dextrose/Water 1 100ml.bag @ 100 mls/hr IVPB Q1H [facility] Rx#: [id number] Output: Urine 1100 Other: Voiding Method Toilet # Voids 5 - Exam General appearance: average body habitus, no acute distress - EENT Eyes: anicteric sclerae, PERRLA, no ptosis, no scleral icterus, normal appearance ENT: hearing grossly normal, normal oropharynx, no thrush Ears: bilateral: normal - Neck Neck: no lymphadenopathy, normal ROM, no rigidity, no stridor, no thyromegaly Carotids: bilateral: upstroke normal Thyroid: bilateral: normal size - Respiratory Respiratory: bilateral: diminished, negative: dullness, rales, rhonchi, wheezing , prolonged expiration, prolonged inspiration - Cardiovascular Rhythm: regular Heart sounds: normal: S1, S2 Abnormal Heart Sounds: no systolic murmur, no S3 Gallop, no S4 Gallop, no click - Gastrointestinal General gastrointestinal: normal bowel sounds, soft, no splenomegaly, no tenderness, no umbilical hernia, no ventral hernia - Integumentary Integumentary: normal, normal turgor - Neurologic Neurologic: CNII-XII intact - Musculoskeletal Musculoskeletal: generalized weakness, strength equal bilaterally - Psychiatric Psychiatric: A&O x's 3, appropriate affect, intact judgment & insight - Labs CBC & Chem 7: 06/11/16 06:11 06/11/16 06:11 Labs: Abnormal Lab Results - Last 24 Hours (Table) 06/10/16 06/10/16 06/10/16 Range/Units 04:31 08:00 08:28 Plt Count (150-450) k/uL Chloride (98-107) mmol/L Carbon Dioxide (22-30) mmol/L BUN (7-17) mg/dL Glucose (74-99) mg/dL POC Glucose (mg/dL) 193 H 220 H (75-99) mg/dL Hemoglobin A1c 9.3 H (4.2-6.1) % Delta Bilirubin (0.0-0.2) mg/dL Total Protein (6.3-8.2) g/dL Albumin (3.5-5.0) g/dL 06/10/16 06/10/16 06/10/16 Range/Units 09:42 10:27 10:58 Plt Count (150-450) k/uL Chloride (98-107) mmol/L Carbon Dioxide (22-30) mmol/L BUN (7-17) mg/dL Glucose (74-99) mg/dL POC Glucose (mg/dL) 275 H 305 H 307 H (75-99) mg/dL Hemoglobin A1c (4.2-6.1) % Delta Bilirubin (0.0-0.2) mg/dL Total Protein (6.3-8.2) g/dL Albumin (3.5-5.0) g/dL 06/10/16 06/10/16 06/10/16 Range/Units 11:00 11:55 13:21 Plt Count (150-450) k/uL Chloride 110 H (98-107) mmol/L Carbon Dioxide 16 L (22-30) mmol/L BUN 4 L (7-17) mg/dL Glucose 307 H (74-99) mg/dL POC Glucose (mg/dL) 286 H 239 H (75-99) mg/dL Hemoglobin A1c (4.2-6.1) % Delta Bilirubin (0.0-0.2) mg/dL Total Protein 5.7 L (6.3-8.2) g/dL Albumin 3.4 L (3.5-5.0) g/dL 06/10/16 06/10/16 06/10/16 Range/Units 14:00 15:00 17:04 Plt Count (150-450) k/uL Chloride (98-107) mmol/L Carbon Dioxide (22-30) mmol/L BUN (7-17) mg/dL Glucose (74-99) mg/dL POC Glucose (mg/dL) 256 H 245 H 228 H (75-99) mg/dL Hemoglobin A1c (4.2-6.1) % Delta Bilirubin (0.0-0.2) mg/dL Total Protein (6.3-8.2) g/dL Albumin (3.5-5.0) g/dL 06/10/16 06/10/16 06/10/16 Range/Units 18:40 20:07 21:27 Plt Count (150-450) k/uL Chloride (98-107) mmol/L Carbon Dioxide (22-30) mmol/L BUN (7-17) mg/dL Glucose (74-99) mg/dL POC Glucose (mg/dL) 137 H 245 H 252 H (75-99) mg/dL Hemoglobin A1c (4.2-6.1) % Delta Bilirubin (0.0-0.2) mg/dL Total Protein (6.3-8.2) g/dL Albumin (3.5-5.0) g/dL 06/10/16 06/10/16 06/11/16 Range/Units 22:41 23:39 00:22 Plt Count (150-450) k/uL Chloride (98-107) mmol/L Carbon Dioxide (22-30) mmol/L BUN (7-17) mg/dL Glucose (74-99) mg/dL POC Glucose (mg/dL) 199 H 195 H 180 H (75-99) mg/dL Hemoglobin A1c (4.2-6.1) % Delta Bilirubin (0.0-0.2) mg/dL Total Protein (6.3-8.2) g/dL Albumin (3.5-5.0) g/dL 06/11/16 06/11/16 06/11/16 Range/Units 01:50 02:58 04:07 Plt Count (150-450) k/uL Chloride (98-107) mmol/L Carbon Dioxide (22-30) mmol/L BUN (7-17) mg/dL Glucose (74-99) mg/dL POC Glucose (mg/dL) 166 H 171 H 159 H (75-99) mg/dL Hemoglobin A1c (4.2-6.1) % Delta Bilirubin (0.0-0.2) mg/dL Total Protein (6.3-8.2) g/dL Albumin (3.5-5.0) g/dL 06/11/16 06/11/16 06/11/16 Range/Units 05:08 06:06 06:11 Plt Count (150-450) k/uL Chloride 113 H (98-107) mmol/L Carbon Dioxide 20 L (22-30) mmol/L BUN (7-17) mg/dL Glucose 168 H (74-99) mg/dL POC Glucose (mg/dL) 176 H 153 H (75-99) mg/dL Hemoglobin A1c (4.2-6.1) % Delta Bilirubin 0.3 H (0.0-0.2) mg/dL Total Protein 5.4 L (6.3-8.2) g/dL Albumin 3.2 L (3.5-5.0) g/dL 06/11/16 06/11/16 Range/Units 06:11 07:07 Plt Count 117 L (150-450) k/uL Chloride (98-107) mmol/L Carbon Dioxide (22-30) mmol/L BUN (7-17) mg/dL Glucose (74-99) mg/dL POC Glucose (mg/dL) 172 H (75-99) mg/dL Hemoglobin A1c (4.2-6.1) % Delta Bilirubin (0.0-0.2) mg/dL Total Protein (6.3-8.2) g/dL Albumin (3.5-5.0) g/dL Assessment and Plan Plan: 1. Hyperosmolar nonketotic hyperglycemia. IV fluid, insulin drip, monitor the patient was a very closely every hour, and transition the patient to her Lantus at night if her blood with level is in the good range, since the patient does not have any significant acidosis at this point in time. 2. History of diabetes mellitus type 2 insulin requiring we will transition the patient back to Levemir and Humalog. 3. Hypertension and hypertensive cardiovascular disease with left ventricular hypertrophy we will continue the patient on atenolol 100 mg orally once every day as well as lisinopril 20 mg orally once every day. 4. Hyperlipidemia continue the patient on Crestor 40 mg orally once every day, fenofibrate 160 mg orally once every day,Niaspan 1000 g orally once every. 5. Diabetic polyneuropathy continue gabapentin 200 mg orally twice every day. 6. Anxiety generalized continue Klonopin 1 milligram in the evening and 1 mg in the morning. 7. Depression, recurrent continue Zoloft 200 mg orally once every day. 8. Gastroparesis continue Reglan 5 mg before each meal 3 times every day.consult with Dr. Jolly. Gastric emptying study ordered 9. Chronic pancreatitis continue IV fluid resuscitation as well as current pain management in the form of Dilaudid along with fentanyl patch. 10. GERD continue PPI. 11. DVT prophylaxis early ambulation. 12. Full code. 13. Admit to inpatient. Estimated length of stay 2 midnights . Discharge plan: Return home tomorrow Impression and plan of care have been directed as dictated by the signing physician. Amanda Kumar nurse practitioner acting as scribe for signing physician. Time with Patient: Greater than 30
--- NOTE | 2016-06-11 14:02 | XR ---
EXAMINATION TYPE: XR abdomen 2V DATE OF EXAM: 06/11/2016 1:57 PM COMPARISON: 06/09/2016 HISTORY: Pain TECHNIQUE: Single supine KUB image of the abdomen is obtained FINDINGS: Small bowel demonstrates no evidence for dilatation or air fluid levels. Gas and fecal material is seen in non-distended colon. Overall appearance of the colon is improved. No convincing evidence for pneumoperitoneum. No unusual calcifications. The lung bases are clear. The osseous structures are intact. IMPRESSION: 1. Overall nonobstructive bowel gas pattern. Overall appearance of the colon is improved.
[2016-06-11 17:03] LABS: Glucose,Whole Blood 94 mg/dL (75-99)
[2016-06-11] MEDS: FENOFIBRATE 160 MG TAB PO SCH (20:02)
[2016-06-11] MEDS: NIACIN TR 500 MG CAPSULE.ER PO SCH (20:02)
[2016-06-11] MEDS: ATORVASTATIN 80 MG TAB PO SCH (20:03)
[2016-06-11] MEDS: MIRTAZAPINE 45 MG TABLET PO SCH (20:03)
[2016-06-11 20:45] LABS: Glucose,Whole Blood 197 mg/dL (75-99)
[2016-06-12 07:06] LABS: Glucose,Whole Blood 190 mg/dL (75-99)
[2016-06-12] MEDS: HYDROmorphone 1 MG/ML 1 ML SYRINGE IVP PRN ×3 (07:24→15:32)
[2016-06-12] MEDS ORDERED: INSULIN LISPRO (humaLOG) 300 UNIT/3 ML VIAL SQ SCH (07:30)
[2016-06-12 07:39] LABS: Basophils % (A) 0 %; CH 30.9; CHCM 33.8; Eosinophils # (A) 0.1 k/uL (0-0.7); Eosinophils % (A) 1 %; HCT 38.8 % (34.0-46.0); HDW 2.95; HGB 12.7 gm/dL (11.4-16.0); Luc # (Auto) 0.15; Luc % (Auto) 2; Lymphocytes # (A) 3.2 k/uL (1.0-4.8); Lymphocytes % (A) 48 %; MCH 30.1 pg (25.0-35.0); MCHC 32.8 g/dL (31.0-37.0); MCV 91.7 fL (80.0-100.0); Mean Platelet Volume 6.4; Monocytes # (A) 0.4 k/uL (0-1.0); Monocytes % (A) 5 %; Neutrophils # (A) 2.9 k/uL (1.3-7.7); Neutrophils % (A) 43 %; RBC 4.23 m/uL (3.80-5.40); RDW 13.1 % (11.5-15.5); WBC 6.7 k/uL (3.8-10.6); WBC (Perox) 6.93
[2016-06-12] MEDS: CALCIUM CARB-VIT D 500MG-200UN 1 EACH TAB PO SCH (08:22)
[2016-06-12] MEDS: GABAPENTIN 100 MG CAP PO SCH (08:22)
[2016-06-12] MEDS: LISINOPRIL 20 MG TAB PO SCH (08:22)
[2016-06-12] MEDS: ATENOLOL 50 MG TAB PO SCH (08:22)
[2016-06-12] MEDS: LORATADINE 10 MG TAB PO SCH (08:22)
[2016-06-12] MEDS: SERTRALINE 100 MG TAB PO SCH (08:22)
[2016-06-12] MEDS: METOCLOPRAMIDE 5 MG TAB PO SCH ×3 (08:22→18:05)
[2016-06-12] MEDS: FAMOTIDINE 20 MG TAB PO SCH (08:22)
[2016-06-12] MEDS: INSULIN LISPRO (humaLOG) 300 UNIT/3 ML VIAL SQ SCH ×6 (08:25→18:04)
[2016-06-12] MEDS: clonazePAM 1 MG TAB PO SCH (08:30)
[2016-06-12 12:01] LABS: Glucose,Whole Blood 198 mg/dL (75-99)
[2016-06-12] MEDS: MULTIVITAMINS, THERA 1 EACH TAB PO SCH (12:35)
--- NOTE | 2016-06-12 13:38 | CONS ---
DATE OF CONSULTATION: 06/12/2016 REASON FOR CONSULTATION: Abdominal pain, nausea, vomiting, and diarrhea. HISTORY OF PRESENT ILLNESS: The patient is a 51-year-old pleasant lady with history of chronic pancreatitis secondary to hypertriglyceridemia and chronic abdominal pain was admitted to the hospital with acute onset of severe epigastric pain that started about 3 days ago. The pain progressively got worse. She had multiple episodes of nausea, vomiting, followed by diarrhea. Came into the emergency room and subsequently admitted to the hospital for further evaluation. Since being in the hospital, abdominal pain is gradually improving. She did not have any further episodes of nausea or vomiting. She had diarrhea until yesterday, but this morning had a solid bowel movement. Overall, she is feeling much better. The patient had multiple hospitalizations in the past with chronic relapsing pancreatitis. PAST MEDICAL HISTORY: Significant for hypertension, hypertriglyceridemia, chronic pancreatitis, diabetes mellitus, anxiety, depression. Medications at home include: Klonopin, Zyrtec, NovoLog, Remeron, Zestril, Dilaudid p.r.n., multivitamin, atenolol, calcium/vitamin D. Allergies to NSAIDS. SOCIAL HISTORY: No smoking or alcohol use. PAST SURGICAL HISTORY: Cholecystectomy, ERCP in the past at [facility] to investigate for chronic relapsing pancreatitis, history of EGD and colonoscopy in the past. FAMILY HISTORY: Father healthy. Mother had breast cancer. REVIEW OF SYSTEMS: CARDIOPULMONARY: No chest pain or shortness of breath. GENITOURINARY: No dysuria or hematuria. MUSCULOSKELETAL: Unremarkable. SKIN: Unremarkable. ENDOCRINE: Unremarkable. PSYCHIATRIC: Unremarkable. NEUROLOGY: Unremarkable. ENT/VISION: Unremarkable. CONSTITUTIONAL: No recent weight loss. No fever, chills or night sweats. On physical examination, she appears comfortable in no apparent distress. Vital signs are stable. Blood pressure is 130/82, pulse rate 86 per minute and afebrile. HEENT examination unremarkable. Conjunctivae pink. Sclerae anicteric. Oral cavity, no lesions. NECK: No JVD or lymph node enlargement. Chest was clear to auscultation. HEART: Regular rate and rhythm. ABDOMEN: Soft. Bowel are positive. No organomegaly. Mild tenderness in the epigastric area. EXTREMITIES: No pedal edema. SKIN: No rashes. NEURO: Alert and oriented x3. No focal deficits. LABS: WBC 6.7, hemoglobin 12.7. Platelets are normal. Basic metabolic panel is within normal limits. IMPRESSION: 1. Epigastric pain associated with nausea, vomiting, diarrhea, most of which are resolved. The patient does have chronic relapsing pancreatitis from history of hypertriglyceridemia, presently under control. 2. Uncontrolled hyperglycemia. The patient was started on IV insulin drip. Her blood sugars are under much better control today. 3. Diarrhea, resolved. 4. Anxiety, depression, on medications. RECOMMENDATIONS: 1. Advance to low fat diet. 2. Continue with pain medications as needed. 3. Since her symptoms are gradually improving, we will continue with symptomatic and supportive care. 4. No need for any endoscopic intervention. 5. Will follow her closely during her hospital stay.
[2016-06-12 15:32] VITALS: BP 108/60; PULSE 81; RESP 16; TEMP 97.9
[2016-06-12 16:51] LABS: Glucose,Whole Blood 145 mg/dL (75-99)
--- NOTE | 2016-06-12 21:47 | P.DS ---
Providers Date of admission: 06/09/16 13:16 Expected date of discharge: 06/12/16 Attending physician: Chante Nunez Consults: 06/11/16 07:55 Consult Physician Routine Consulting Provider: Liborio Henderson Consult Reason/Comments: gastroparesis Do you want consulting provider notified?: Yes Primary care physician: Mike Borges [facility] Course: s a 51-year-old female showing of Dr. Borges with previous medical history significant for familial dyslipidemia, recurrent pancreatitis and chronic abdominal pain, thought to be due to hypertriglyceridemia, hypertension and hypertensive cardiovascular disease, diabetes mellitus type 2 with recurrent diabetic ketoacidosis in the past. Patient was brought into the emergency department at [facility] complaints that she was having abdominal pain due to her chronic pancreatitis and diarrhea and not eating and not taking her insulin. He was afebrile, tachycardic at 120 and hypertensive at 140/92. CBC was normal. Lactic acid was 10, AST 39 and alkaline phosphatase 159. Initial blood sugar 596. Urinalysis was nitrate and leukoesterase negative. Abdominal x-ray was consistent with colonic ileus. The O2 was 16, GFR greater than 60. Hemoglobin A1c 9.3. Acetone negative Patient was started on insulin drip per DKA protocol and admitted to the intensive care unit. Actiq acid is down to 2.9. Blood sugars are improved to the 200s. She has had no further diarrhea. 06/11: patient will be transitioned off insulin drip to home doses of Levemir, scheduled Humalog and Humalog scale. [facility] with anticipation she'll be ready for discharge tomorrow. She has not had any further diarrhea. Consult placed with Dr. Henderson for gastroparesis and gastric emptying study has been ordered. 06/12: Patient refused to undergo the nuclear med gastric emptying time as the patient does not want to give up his Dilaudid which is required 24 hours prior to her imaging no sugar abnormalities at this time and is doing well with plans for discharge to home outpatient testing for nuclear med gastric emptying time follow-up outpatient with gastroenterology possible EGD FINAL DIAGNOSIS 1. Hyperosmolar nonketotic hyperglycemia. IV fluid, insulin drip, monitor the patient was a very closely every hour, and transition the patient to her Lantus at night if her blood with level is in the good range, since the patient does not have any significant acidosis at this point in time. Improved on discharge with resumption of home dosing protocol 2. History of diabetes mellitus type 2 insulin requiring we will transition the patient back to Levemir and Humalog. 3. Hypertension and hypertensive cardiovascular disease with left ventricular hypertrophy we will continue the patient on atenolol 100 mg orally once every day as well as lisinopril 20 mg orally once every day. 4. Hyperlipidemia continue the patient on Crestor 40 mg orally once every day, fenofibrate 160 mg orally once every day,Niaspan 1000 g orally once every. 5. Diabetic polyneuropathy continue gabapentin 200 mg orally twice every day. 6. Anxiety generalized continue Klonopin 1 milligram in the evening and 1 mg in the morning. 7. Depression, recurrent continue Zoloft 200 mg orally once every day. 8. Gastroparesis continue Reglan 5 mg before each meal 3 times every day.consult with Dr. Jolly. Gastric emptying study ordered which she is not performed during this admission as the patient refused to give up her Dilaudid which is required 24 hours prior to nuclear med testing outpatient nuclear med testing was requested to be done with follow-up with Dr. Feliciano 9. Chronic pancreatitis continue IV fluid resuscitation as well as current pain management in the form of Dilaudid along with fentanyl patch. 10. GERD continue PPI. 11. DVT prophylaxis early ambulation. 12. Full code. Procedures to be done or imaging to be done as an outpatient, nuclear med gastric emptying time possible EGD, Dr. Cohen follow-up Discharge Medication List Lisinopril [Zestril] 20 mg PO DAILY 09/09/13 [History] Fenofibrate [Lofibra] 160 mg PO HS tab 08/09/14 [Rx] Gabapentin [Neurontin] 200 mg PO BID cap 08/09/14 [Rx] Metoclopramide [Reglan] 5 mg PO ACHS tab 08/09/14 [Rx] Prochlorperazine [Compazine] 10 mg PO TID PRN #0 tab 08/09/14 [Rx] Sertraline [Zoloft] 200 mg PO DAILY tab 08/09/14 [Rx] clonazePAM [KlonoPIN] 1 mg PO DAILY tab 08/09/14 [Rx] HYDROmorphone [Dilaudid] 2 mg PO Q8H PRN 06/02/15 [History] Multivitamins, Thera [Multivitamin] 1 tab PO DAILY 09/17/14 [History] Atenolol [Tenormin] 100 mg PO DAILY 11/19/14 [History] Calcium Carb-Vit D 500Mg-200Un [Oscal 500+D] 1 tab PO BID 11/19/14 [History] Mirtazapine [Remeron] 45 mg PO HS 11/19/14 [History] Rosuvastatin Calcium [Crestor] 40 mg PO HS 11/19/14 [History] fentaNYL 25MCG/HR PATCH [Duragesic 25MCG/HR] 1 patch TRANSDERM Q72H #0 [Rx] Insulin Aspart [NovoLOG Flexpen] 26 unit SQ AC-BRKFST 10/14/15 [History] Insulin Aspart [NovoLOG Flexpen] 26 unit SQ AC-LUNCH 10/14/15 [History] Insulin Aspart [NovoLOG Flexpen] 36 units SQ AC-SUPPER 10/14/15 [History] Pancreatic Enzymes Otc(Unknown) 1 cap PO AC-TID 10/14/15 [History] Cetirizine HCl [Zyrtec] 10 mg PO DAILY 02/04/16 [History] Niacin 1,000 mg PO HS 02/04/16 [History] clonazePAM [KlonoPIN] 2 mg PO HS 02/04/16 [History] Dicyclomine [Bentyl] 10 mg PO TID PRN #90 cap 03/22/16 [Rx] Famotidine [Pepcid] 20 mg PO BID #0 03/22/16 [Rx] Insulin Detemir [Levemir] 50 unit SQ HS #0 vial 03/22/16 [Rx] Patient Condition at Discharge: Stable Plan - Discharge Summary Discharge Medication List Lisinopril [Zestril] 20 mg PO DAILY 09/09/13 [History] Fenofibrate [Lofibra] 160 mg PO HS tab 08/09/14 [Rx] Gabapentin [Neurontin] 200 mg PO BID cap 08/09/14 [Rx] Metoclopramide [Reglan] 5 mg PO ACHS tab 08/09/14 [Rx] Prochlorperazine [Compazine] 10 mg PO TID PRN #0 tab 08/09/14 [Rx] Sertraline [Zoloft] 200 mg PO DAILY tab 08/09/14 [Rx] clonazePAM [KlonoPIN] 1 mg PO DAILY tab 08/09/14 [Rx] HYDROmorphone [Dilaudid] 2 mg PO Q8H PRN 09/17/14 [History] Multivitamins, Thera [Multivitamin] 1 tab PO DAILY 09/17/14 [History] Atenolol [Tenormin] 100 mg PO DAILY 11/19/14 [History] Calcium Carb-Vit D 500Mg-200Un [Oscal 500+D] 1 tab PO BID 11/19/14 [History] Mirtazapine [Remeron] 45 mg PO HS 11/19/14 [History] Rosuvastatin Calcium [Crestor] 40 mg PO HS 11/19/14 [History] fentaNYL 25MCG/HR PATCH [Duragesic 25MCG/HR] 1 patch TRANSDERM Q72H #0 [Rx] Insulin Aspart [NovoLOG Flexpen] 26 unit SQ AC-BRKFST 10/14/15 [History] Insulin Aspart [NovoLOG Flexpen] 26 unit SQ AC-LUNCH 10/14/15 [History] Insulin Aspart [NovoLOG Flexpen] 36 units SQ AC-SUPPER 10/14/15 [History] Pancreatic Enzymes Otc(Unknown) 1 cap PO AC-TID 10/14/15 [History] Cetirizine HCl [Zyrtec] 10 mg PO DAILY 02/04/16 [History] Niacin 1,000 mg PO HS 02/04/16 [History] clonazePAM [KlonoPIN] 2 mg PO HS 02/04/16 [History] Dicyclomine [Bentyl] 10 mg PO TID PRN #90 cap 03/22/16 [Rx] Famotidine [Pepcid] 20 mg PO BID #0 03/22/16 [Rx] Insulin Detemir [Levemir] 50 unit SQ HS #0 vial 03/22/16 [Rx] Follow up Appointment(s)/Referral(s): Mike Borges MD [Primary Care Provider] - 1-2 days Marlin Cohen MD [STAFF PHYSICIAN] - 3 Weeks Ambulatory/Diagnostic Orders: Miscellaneous Radiology Order [RAD.AMB] Time Frame: 1 Week, Facility: [facility], Location: [facility] Patient Instructions/Handouts: Separation Anxiety Disorder (DC), Hyperosmolar Hyperglycemic State (DC), Lactic Acidosis (GEN), Chronic Abdominal Pain (GEN) Discharge Disposition: HOME SELF-CARE
== END 2016-06-12 18:00 | disposition home or self-care (01) | DRG 638 ==
LOC: EC 09:46 → 6SEL 13:16 → 6ICU 14:16 → 6SEL 06-10 20:58 → 5MS5E 06-11 18:15
PROVIDERS: ADMIT Internal Medicine; ATTEND Internal Medicine
DX: E11.00 Type 2 diabetes mellitus with hyperosmolarity without nonketotic hyperglycemic-hyperosmolar coma (NKHHC) (principal); E87.2 Acidosis; I11.9 Hypertensive heart disease without heart failure; K56.7 Ileus, unspecified; F33.9 Major depressive disorder, recurrent, unspecified; K86.1 Other chronic pancreatitis; K31.84 Gastroparesis; K21.9 Gastro-esophageal reflux disease without esophagitis; R00.0 Tachycardia, unspecified; E78.1 Pure hyperglyceridemia; E11.42 Type 2 diabetes mellitus with diabetic polyneuropathy; E11.43 Type 2 diabetes mellitus with diabetic autonomic (poly)neuropathy; R19.7 Diarrhea, unspecified; R10.9 Unspecified abdominal pain; E78.5 Hyperlipidemia, unspecified; F41.1 Generalized anxiety disorder; I25.10 Atherosclerotic heart disease of native coronary artery without angina pectoris; F43.10 Post-traumatic stress disorder, unspecified; R53.1 Weakness; F40.240 Claustrophobia; F41.0 Panic disorder [episodic paroxysmal anxiety]; G89.4 Chronic pain syndrome; Z88.6 Allergy status to analgesic agent; Z86.19 Personal history of other infectious and parasitic diseases; Z80.3 Family history of malignant neoplasm of breast; Z79.4 Long term (current) use of insulin; Z87.19 Personal history of other diseases of the digestive system; Z79.891 Long term (current) use of opiate analgesic; Z79.899 Other long term (current) drug therapy; Z78.0 Asymptomatic menopausal state; Z90.49 Acquired absence of other specified parts of digestive tract; Z81.8 Family history of other mental and behavioral disorders; Z91.19 Patient's noncompliance with other medical treatment and regimen
CPT/HCPCS: 36415; 74020; 80048; 80051; 80053; 80076; 81003; 82009; 82150; 82565; 82803; 82947; 83036; 83605; 83690; 83735; 84100; 84520; 85025; 85027; 85610; 85730; 96361; 96365; 96375; 99285

== ENCOUNTER 2016-07-21 08:28 | Emergency (ER) | payer MEDICARE ==
[2016-07-21] MEDS ORDERED: SODIUM CHLORIDE 0.9% 1,000 ML IV STA (08:44)
[2016-07-21] MEDS ORDERED: SODIUM CHLORIDE 0.9% 2,000 ML IV STA (08:44)
[2016-07-21] MEDS ORDERED: HYDROmorphone 1 MG/ML 1 ML SYRINGE IVP STA (08:44)
[2016-07-21] MEDS ORDERED: ONDANSETRON 4 MG/2 ML VIAL IVP STA (08:44)
--- NOTE | 2016-07-21 08:47 | ED ---
General Adult HPI - General Chief complaint: Abdominal Pain Stated complaint: pancretitis, hyperglycemia Time Seen by Provider: 07/21/16 08:38 Source: patient, RN notes reviewed Mode of arrival: ambulatory Limitations: no limitations - History of Present Illness Initial comments: Patient 51-year-old female significant past medical history for diabetes, pancreatic tenderness, who presents emergency room today with chief complaint of symptoms of nausea vomiting, diarrhea times one day. Patient states his symptoms are last night. She states she checked her sugar today was elevated high. She states her monitor not give or reading. She states she has history of DKA, pancreatitis. Patient does admit some pain left upper quadrant. States feels consistent with a pancreatitis. Patient denies any other complaints or symptoms. Patient denies any recent fever, chills, shortness of breath, chest pain, numbness or tingling, dysuria or hematuria, constipation, headaches or visual changes, or any other complaints. - Related Data Home Medications Medication Instructions Recorded Confirmed Lisinopril [Zestril] 20 mg PO DAILY 09/09/13 07/21/16 HYDROmorphone [Dilaudid] 2 mg PO Q8H PRN 09/17/14 07/21/16 Multivitamins, Thera [Multivitamin 1 tab PO DAILY 09/17/14 07/21/16 (formulary)] Atenolol [Tenormin] 100 mg PO DAILY 11/19/14 07/21/16 Calcium Carb-Vit D 500Mg-200Un 1 tab PO BID 11/19/14 07/21/16 [Oscal 500+D] Mirtazapine [Remeron] 45 mg PO HS 11/19/14 07/21/16 Rosuvastatin Calcium [Crestor] 40 mg PO HS 11/19/14 07/21/16 Insulin Aspart [NovoLOG Flexpen] 26 unit SQ AC-BRKFST 10/14/15 07/21/16 Insulin Aspart [NovoLOG Flexpen] 26 unit SQ AC-LUNCH 10/14/15 07/21/16 Insulin Aspart [NovoLOG Flexpen] 36 units SQ AC-SUPPER 10/14/15 07/21/16 Pancreatic Enzymes Otc(Unknown) 1 cap PO AC-TID 10/14/15 07/21/16 Cetirizine HCl [Zyrtec] 10 mg PO DAILY 02/04/16 07/21/16 Niacin 1,000 mg PO HS 02/04/16 07/21/16 clonazePAM [KlonoPIN] 2 mg PO HS 02/04/16 07/21/16 Insulin Detemir [Levemir] 66 unit SQ HS 07/21/16 07/21/16 Previous Rx's Medication Instructions Recorded Fenofibrate [Lofibra] 160 mg PO HS tab 08/09/14 Gabapentin [Neurontin] 200 mg PO BID cap 08/09/14 Metoclopramide [Reglan] 5 mg PO ACHS tab 08/09/14 Prochlorperazine [Compazine] 10 mg PO TID PRN #0 tab 08/09/14 Sertraline [Zoloft] 200 mg PO DAILY tab 08/09/14 clonazePAM [KlonoPIN] 1 mg PO DAILY tab 08/09/14 fentaNYL 25MCG/HR PATCH [Duragesic 1 patch TRANSDERM Q72H #0 07/10/15 25MCG/HR] Dicyclomine [Bentyl] 10 mg PO TID PRN #90 cap 03/22/16 Famotidine [Pepcid] 20 mg PO BID #0 03/22/16 Ondansetron Odt [Zofran ODT] 4 mg PO Q8HR PRN #20 tab 07/21/16 Allergies Allergy/AdvReac Type Severity Reaction Status Date / Time NSAIDS (Non-Steroidal Allergy Rash/Hives Verified 07/21/16 08:58 Anti-Inflamma Review of Systems ROS Statement: Those systems with pertinent positive or pertinent negative responses have been documented in the HPI. ROS Other: All systems not noted in ROS Statement are negative. Past Medical History Past Medical History: Coronary Artery Disease (CAD), Diabetes Mellitus, GERD/ Reflux, Hyperlipidemia, Hypertension Additional Past Medical History / Comment(s): IDDM type I per pt, recurrent DKA in past, hypertensive heart disease, chronic pain syndrome, hypertriglyceridemia , chronic pancreatitis, chronic abdominal pain, gastroparesis, severe GERD, diabetic polyneuropathy mostly in hands and alittle in feet bilaterally, infectious colitis. History of Any Multi-Drug Resistant Organisms: None Reported Past Surgical History: Cholecystectomy Additional Past Surgical History / Comment(s): Biliary stent through an ERCP that was performed at [facility] and stent removed 2007, lap jenn, colonoscopy, ERCP. Past Anesthesia/Blood Transfusion Reactions: No Reported Reaction Additional Past Anesthesia/Blood Transfusion Reaction / Comment(s): Pt has never received blood."CLAUSTERPHOBIA" Past Psychological History: Anxiety, Depression, Panic Disorder, PTSD Additional Psychological History / Comment(s): Pt lives in her home with her gadiel , son-in-law and 2 grandchildren. She is independent. She currently is on disability. She drives a car a limited amount-family drive her places at times. She has anxiety and occasional anxiety-panic attacks. She sees Dr. Fink at [facility] and is councelled by Chad Samuels. She states her current psych med rigeme is working well. Her gadiel and dad help her out. She has a rescue dog. Smoking Status: Never smoker Past Alcohol Use History: None Reported Past Drug Use History: None Reported - Past Family History Father Family Medical History: No Reported History Additional Family Medical History / Comment(s): Father had severe anxiety and was hospitalized for this at times. Mother Family Medical History: Cancer Additional Family Medical History / Comment(s): Mother of metastatic breast CA at the age of 42yrs. General Exam - General Exam Comments Initial Comments: General: The patient is awake and alert, in no distress, and does not appear acutely ill. Eye: Pupils are equal, round and reactive to light, extra-ocular movements are intact. No nystagmus. There is normal conjunctiva bilaterally. No signs of icterus. Ears, nose, mouth and throat: There are moist mucous membranes and no oral lesions. Neck: The neck is supple, there is no tenderness or JVD. Cardiovascular: There is a regular rate and rhythm. No murmur, rub or gallop is appreciated. Respiratory: Lungs are clear to auscultation, respirations are non-labored, breath sounds are equal. No wheezes, stridor, rales, or rhonchi. Gastrointestinal: Normal appearance and. Normal bowel sounds. Abdomen soft on palpation. Patient does have mild tenderness left upper quadrant. No CVA tenderness. No rebound tenderness. No guarding. Musculoskeletal: Normal ROM, no tenderness. Strength 5/5. Sensation intact. Pulses equal bilaterally 2+. Neurological: A&O x 3. CN II-XII intact, There are no obvious motor or sensory deficits. Coordination appears grossly intact. Speech is normal. Skin: Skin is warm and dry and no rashes or lesions are noted. Psychiatric: Cooperative, appropriate mood & affect, normal judgment. Limitations: no limitations Course Vital Signs 07/21/16 08:36 Temperature 97.5 F L Pulse Rate 108 H Respiratory 20 Rate Blood Pressure 151/76 O2 Sat by Pulse 99 Oximetry Medical Decision Making - Medical Decision Making 1202: Case discussed in detail with attending physician Dr. Gonzalez. Patient reexamined at this time shows no signs of distress. Patient's blood sugar has come down here in the emergency room. Patient resting comfortable. No nausea vomiting. Abdomen soft. Patient is advised follow-up the family doctor in the next 1-2 days. We'll give nausea medication go home with. Advised return if any symptoms increase or worsen. - Lab Data Result diagrams: 07/21/16 09:00 07/21/16 09:00 Lab Results 07/21/16 07/21/16 07/21/16 Range/Units 09:00 09:00 09:00 WBC 5.7 (3.8-10.6) k/uL RBC 4.63 (3.80-5.40) m/uL Hgb 14.1 (11.4-16.0) gm/dL Hct 42.9 (34.0-46.0) % MCV 92.7 (80.0-100.0) fL MCH 30.4 (25.0-35.0) pg MCHC 32.7 (31.0-37.0) g/dL RDW 12.8 (11.5-15.5) % Plt Count 147 L (150-450) k/uL Neutrophils % 82 % Lymphocytes % 16 % Monocytes % 1 % Eosinophils % 0 % Basophils % 0 % Neutrophils # 4.6 (1.3-7.7) k/uL Lymphocytes # 0.9 L (1.0-4.8) k/uL Monocytes # 0.1 (0-1.0) k/uL Eosinophils # 0.0 (0-0.7) k/uL Basophils # 0.0 (0-0.2) k/uL Sodium 138 (137-145) mmol/L Potassium 4.5 (3.5-5.1) mmol/L Chloride 100 (98-107) mmol/L Carbon Dioxide 15 L (22-30) mmol/L Anion Gap 23 mmol/L BUN 16 (7-17) mg/dL Creatinine 0.62 (0.52-1.04) mg/dL Est GFR (MDRD) Af Amer >60 (>60 ml/min/1.73 sqM) Est GFR (MDRD) Non-Af >60 (>60 ml/min/1.73 sqM) Glucose 716 H* (74-99) mg/dL POC Glucose (mg/dL) (75-99) mg/dL POC Glu Gel Coater ID Calcium 10.1 (8.4-10.2) mg/dL Total Bilirubin 0.7 (0.2-1.3) mg/dL AST 33 (14-36) U/L ALT 27 (9-52) U/L Alkaline Phosphatase 131 H (38-126) U/L Total Protein 7.4 (6.3-8.2) g/dL Albumin 4.7 (3.5-5.0) g/dL Amylase 80 (30-110) U/L Lipase 163 (23-300) U/L Urine Color Colorless Urine Appearance Clear (Clear) Urine pH 5.0 (5.0-8.0) Ur Specific [place] 1.023 (1.001-1.035) Urine Protein Negative (Negative) Urine Glucose (UA) 4+ H (Negative) Urine Ketones Negative (Negative) Urine Blood Negative (Negative) Urine Nitrite Negative (Negative) Urine Bilirubin Negative (Negative) Urine Urobilinogen <2.0 (<2.0) mg/dL Ur Leukocyte Esterase Negative (Negative) Acetone, Qual Negative (Negative) 07/21/16 07/21/16 07/21/16 Range/Units 09:05 10:30 12:00 WBC (3.8-10.6) k/uL RBC (3.80-5.40) m/uL Hgb (11.4-16.0) gm/dL Hct (34.0-46.0) % MCV (80.0-100.0) fL MCH (25.0-35.0) pg MCHC (31.0-37.0) g/dL RDW (11.5-15.5) % Plt Count (150-450) k/uL Neutrophils % % Lymphocytes % % Monocytes % % Eosinophils % % Basophils % % Neutrophils # (1.3-7.7) k/uL Lymphocytes # (1.0-4.8) k/uL Monocytes # (0-1.0) k/uL Eosinophils # (0-0.7) k/uL Basophils # (0-0.2) k/uL Sodium (137-145) mmol/L Potassium (3.5-5.1) mmol/L Chloride (98-107) mmol/L Carbon Dioxide (22-30) mmol/L Anion Gap mmol/L BUN (7-17) mg/dL Creatinine (0.52-1.04) mg/dL Est GFR (MDRD) Af Amer (>60 ml/min/1.73 sqM) Est GFR (MDRD) Non-Af (>60 ml/min/1.73 sqM) Glucose (74-99) mg/dL POC Glucose (mg/dL) 529 H 395 H 416 H (75-99) mg/dL POC Glu Gel Coater Beth Sandoval Alison Branch, [place] Calcium (8.4-10.2) mg/dL Total Bilirubin (0.2-1.3) mg/dL AST (14-36) U/L ALT (9-52) U/L Alkaline Phosphatase (38-126) U/L Total Protein (6.3-8.2) g/dL Albumin (3.5-5.0) g/dL Amylase (30-110) U/L Lipase (23-300) U/L Urine Color Urine Appearance (Clear) Urine pH (5.0-8.0) Ur Specific [place] (1.001-1.035) Urine Protein (Negative) Urine Glucose (UA) (Negative) Urine Ketones (Negative) Urine Blood (Negative) Urine Nitrite (Negative) Urine Bilirubin (Negative) Urine Urobilinogen (<2.0) mg/dL Ur Leukocyte Esterase (Negative) Acetone, Qual (Negative) Disposition Clinical Impression: Nausea vomiting and diarrhea, Hyperglycemia Disposition: HOME SELF-CARE Condition: Good Instructions: Acute Nausea and Vomiting (ED) Additional Instructions: Please follow-up family doctor over the next 2 days. Please use medication as prescribed. Please return to emergency room if any symptoms increase or worsen or for any other concerns. Prescriptions: Ondansetron Odt [Zofran ODT] 4 mg PO Q8HR PRN #20 tab PRN Reason: Nausea Time of Disposition: 12:07
[2016-07-21 09:10] LABS: Basophils % (A) 0 %; CH 30.2; CHCM 32.8; Eosinophils % (A) 0 %; HCT 42.9 % (34.0-46.0); HDW 3.06; HGB 14.1 gm/dL (11.4-16.0); Luc # (Auto) 0.05; Luc % (Auto) 1; Lymphocytes # (A) 0.9 k/uL (1.0-4.8); Lymphocytes % (A) 16 %; MCH 30.4 pg (25.0-35.0); MCHC 32.7 g/dL (31.0-37.0); MCV 92.7 fL (80.0-100.0); Mean Platelet Volume 6.5; Monocytes # (A) 0.1 k/uL (0-1.0); Monocytes % (A) 1 %; Neutrophils # (A) 4.6 k/uL (1.3-7.7); Neutrophils % (A) 82 %; RBC 4.63 m/uL (3.80-5.40); RDW 12.8 % (11.5-15.5); WBC 5.7 k/uL (3.8-10.6); WBC (Perox) 5.84
[2016-07-21 09:14] LABS: Glucose,Whole Blood 529 mg/dL (75-99)
[2016-07-21] MEDS ORDERED: INSULIN REGULAR 100 UNIT/ML VIAL IV ONE ×3 (09:18→12:04)
[2016-07-21 09:22] LABS: Appearance,Urine Clear (Clear); Bilirubin,Urine Negative (Negative); Glucose,Urine (UA) 4+ (Negative); Ketones,Urine Negative (Negative); Leukocyte Esterase,Urine Negative (Negative); Nitrite,Urine Negative (Negative); Protein,Urine Negative (Negative); Specific Gravity,Urine 1.023 (1.001-1.035); UA Billing (MACRO vs. MICRO) CHEM; Urobilinogen,Urine <2.0 mg/dL (<2.0)
--- NOTE | 2016-07-21 09:24 | XR ---
EXAMINATION TYPE: XR KUB DATE OF EXAM ORDERED: 07/21/2016 9:18 AM HISTORY: abdominal pain. COMPARISON: Previous study dated 06/11/2016.. FINDINGS: Is been a previous cholecystectomy. There is mild gaseous distention of the colon. There is no evidence of obstruction. No small bowel ga s is seen. There are phleboliths within the pelvis. IMPRESSION: MILD GASEOUS DISTENTION OF THE COLON.
[2016-07-21 09:29] LABS: ALT 27 U/L (9-52); Alkaline Phosphatase 131 U/L (38-126); Amylase 80 U/L (30-110); Anion Gap 23 mmol/L; Blood Urea Nitrogen 16 mg/dL (7-17); Calcium 10.1 mg/dL (8.4-10.2); Carbon Dioxide 15 mmol/L (22-30); Chloride 100 mmol/L (98-107); Non-African American GFR(MDRD) >60 (>60 ml/min/1.73 sqM); Potassium 4.5 mmol/L (3.5-5.1); Sodium 138 mmol/L (137-145); Total Bilirubin 0.7 mg/dL (0.2-1.3); Total Protein 7.4 g/dL (6.3-8.2)
[2016-07-21 09:44] LABS: AST 33 U/L (14-36); Glucose 716 mg/dL (74-99)
[2016-07-21 10:31] LABS: Glucose,Whole Blood 395 mg/dL (75-99)
[2016-07-21 12:01] LABS: Glucose,Whole Blood 416 mg/dL (75-99)
[2016-07-21] MEDS ORDERED: INSULIN LISPRO (humaLOG) 300 UNIT/3 ML VIAL SQ ONE (12:05)
[2016-07-21 12:49] VITALS: BP 123/62; PULSE 98; RESP 18; TEMP 98
== END 2016-07-21 12:47 | disposition home or self-care (01) ==
LOC: EC 08:28
DX: E10.65 Type 1 diabetes mellitus with hyperglycemia (principal); R11.2 Nausea with vomiting, unspecified; R19.7 Diarrhea, unspecified; I11.9 Hypertensive heart disease without heart failure; I25.10 Atherosclerotic heart disease of native coronary artery without angina pectoris; F32.9 Major depressive disorder, single episode, unspecified; F41.0 Panic disorder [episodic paroxysmal anxiety]; Z79.899 Other long term (current) drug therapy; Z79.4 Long term (current) use of insulin; Z88.6 Allergy status to analgesic agent; Z90.49 Acquired absence of other specified parts of digestive tract; Z98.890 Other specified postprocedural states
CPT/HCPCS: 99284; 96374; 96375; 96361 ×3; 36415; 80053; 82150; 82009; 83690; 85025; 81003; 74000; J2405; J1170

== ENCOUNTER 2016-07-21 19:26 | Inpatient (IN) | payer MEDICARE ==
[2016-07-21] MEDS ORDERED: SODIUM CHLORIDE 0.9% 1,000 ML IV STA ×2 (19:38→20:34)
[2016-07-21 19:44] LABS: Glucose,Whole Blood >600 mg/dL (75-99)
--- NOTE | 2016-07-21 19:49 | ED ---
General Adult HPI - General Chief complaint: Syncope Stated complaint: High Sugar,Dizziness Time Seen by Provider: 07/21/16 19:35 Source: patient, RN notes reviewed, old records reviewed Mode of arrival: ambulatory Limitations: no limitations - History of Present Illness Initial comments: This is a 51-year-old female to the ER for evaluation. This patient presents for evaluation of fall and syncope. Patient has history of severe diabetes, was in ER earlier today for evaluation of severe high blood high blood sugar. Patient states she got home felt lightheaded dizzy and weak which she got out of her car fell forward hitting head. Patient at this time denies any feeling of symptoms of syncope, she states she hasn't been feeling well with just mild nausea vomiting and diarrhea. No fevers. Mild headache from fall - Related Data Home Medications Medication Instructions Recorded Confirmed Lisinopril [Zestril] 20 mg PO DAILY 09/09/13 07/21/16 HYDROmorphone [Dilaudid] 2 mg PO Q8H PRN 09/17/14 07/21/16 Multivitamins, Thera [Multivitamin 1 tab PO DAILY 09/17/14 07/21/16 (formulary)] Atenolol [Tenormin] 100 mg PO DAILY 11/19/14 07/21/16 Calcium Carb-Vit D 500Mg-200Un 1 tab PO BID 11/19/14 07/21/16 [Oscal 500+D] Mirtazapine [Remeron] 45 mg PO HS 11/19/14 07/21/16 Rosuvastatin Calcium [Crestor] 40 mg PO HS 11/19/14 07/21/16 Insulin Aspart [NovoLOG Flexpen] 26 unit SQ AC-BRKFST 10/14/15 07/21/16 Insulin Aspart [NovoLOG Flexpen] 26 unit SQ AC-LUNCH 10/14/15 07/21/16 Insulin Aspart [NovoLOG Flexpen] 36 units SQ AC-SUPPER 10/14/15 07/21/16 Pancreatic Enzymes Otc(Unknown) 1 cap PO AC-TID 10/14/15 07/21/16 Cetirizine HCl [Zyrtec] 10 mg PO DAILY 02/04/16 07/21/16 Niacin 1,000 mg PO HS 02/04/16 07/21/16 clonazePAM [KlonoPIN] 2 mg PO HS 02/04/16 07/21/16 Insulin Detemir [Levemir] 66 unit SQ HS 07/21/16 07/21/16 clonazePAM [KlonoPIN] 1 mg PO QAM 07/21/16 07/21/16 Previous Rx's Medication Instructions Recorded Fenofibrate [Lofibra] 160 mg PO HS tab 08/09/14 Gabapentin [Neurontin] 200 mg PO BID cap 08/09/14 Metoclopramide [Reglan] 5 mg PO ACHS tab 08/09/14 Prochlorperazine [Compazine] 10 mg PO TID PRN #0 tab 08/09/14 Sertraline [Zoloft] 200 mg PO DAILY tab 08/09/14 fentaNYL 25MCG/HR PATCH [Duragesic 1 patch TRANSDERM Q72H #0 07/10/15 25MCG/HR] Dicyclomine [Bentyl] 10 mg PO TID PRN #90 cap 03/22/16 Famotidine [Pepcid] 20 mg PO BID #0 03/22/16 Ondansetron Odt [Zofran ODT] 4 mg PO Q8HR PRN #20 tab 07/21/16 Allergies Allergy/AdvReac Type Severity Reaction Status Date / Time NSAIDS (Non-Steroidal Allergy Rash/Hives Verified 07/21/16 19:31 Anti-Inflamma Review of Systems ROS Statement: Those systems with pertinent positive or pertinent negative responses have been documented in the HPI. ROS Other: All systems not noted in ROS Statement are negative. Past Medical History Past Medical History: Coronary Artery Disease (CAD), Diabetes Mellitus, GERD/ Reflux, Hyperlipidemia, Hypertension Additional Past Medical History / Comment(s): IDDM type I per pt, recurrent DKA in past, hypertensive heart disease, chronic pain syndrome, hypertriglyceridemia , chronic pancreatitis, chronic abdominal pain, gastroparesis, severe GERD, diabetic polyneuropathy mostly in hands and alittle in feet bilaterally, infectious colitis. History of Any Multi-Drug Resistant Organisms: None Reported Past Surgical History: Cholecystectomy Additional Past Surgical History / Comment(s): Biliary stent through an ERCP that was performed at [facility] and stent removed 2007, lap jenn, colonoscopy, ERCP. Past Anesthesia/Blood Transfusion Reactions: No Reported Reaction Additional Past Anesthesia/Blood Transfusion Reaction / Comment(s): Pt has never received blood."CLAUSTERPHOBIA" Past Psychological History: Anxiety, Depression, Panic Disorder, PTSD Additional Psychological History / Comment(s): Pt lives in her home with her gadiel , son-in-law and 2 grandchildren. She is independent. She currently is on disability. She drives a car a limited amount-family drive her places at times. She has anxiety and occasional anxiety-panic attacks. She sees Dr. Fink at [facility] and is councelled by Chad Samuels. She states her current psych med rigeme is working well. Her gadiel and dad help her out. She has a rescue dog. Smoking Status: Never smoker Past Alcohol Use History: None Reported Past Drug Use History: None Reported - Past Family History Father Family Medical History: No Reported History Additional Family Medical History / Comment(s): Father had severe anxiety and was hospitalized for this at times. Mother Family Medical History: Cancer Additional Family Medical History / Comment(s): Mother of metastatic breast CA at the age of 42yrs. General Exam Limitations: no limitations General appearance: alert, in no apparent distress Head exam: Present: atraumatic, normocephalic, normal inspection Eye exam: Present: normal appearance, PERRL, EOMI. Absent: scleral icterus, conjunctival injection, periorbital swelling ENT exam: Present: normal exam, mucous membranes moist Neck exam: Present: normal inspection. Absent: tenderness, meningismus, lymphadenopathy Respiratory exam: Present: normal lung sounds bilaterally. Absent: respiratory distress, wheezes, rales, rhonchi, stridor Cardiovascular Exam: Present: regular rate, normal rhythm, normal heart sounds. Absent: systolic murmur, diastolic murmur, rubs, gallop, clicks GI/Abdominal exam: Present: soft, normal bowel sounds. Absent: distended, tenderness, guarding, rebound, rigid Extremities exam: Present: normal inspection, full ROM, normal capillary refill. Absent: tenderness, pedal edema, joint swelling, calf tenderness Back exam: Present: normal inspection Neurological exam: Present: alert, oriented X3, CN II-XII intact Psychiatric exam: Present: normal affect, normal mood Skin exam: Present: warm, dry, intact, normal color. Absent: rash Course Vital Signs 07/21/16 07/21/16 19:29 23:55 Temperature 97.8 F Pulse Rate 108 H 82 Respiratory 18 16 Rate Blood Pressure 123/75 115/66 O2 Sat by Pulse 98 97 Oximetry - Reevaluation(s) Reevaluation #1: 07/21/16 20:08 ER visit from earlier reviewed Reevaluation #2: 07/21/16 20:36 Patient remains without syncopal event here in the emergency room EKG Findings - EKG Comments: EKG Findings:: EKG shows normal sinus rhythm rate of 97, CA 136, QRS 80, QTC 441 Medical Decision Making - Medical Decision Making 51 female to the ED co syncopal episode, not feeling well, patient in DKA, will admit for titration of blood sugars and fluid resuscitation. - Lab Data Result diagrams: 07/22/16 04:05 07/22/16 08:34 Lab Results 07/21/16 07/21/16 07/21/16 Range/Units 19:42 20:09 20:09 WBC (3.8-10.6) k/uL RBC (3.80-5.40) m/uL Hgb (11.4-16.0) gm/dL Hct (34.0-46.0) % MCV (80.0-100.0) fL MCH (25.0-35.0) pg MCHC (31.0-37.0) g/dL RDW (11.5-15.5) % Plt Count (150-450) k/uL Neutrophils % % Lymphocytes % % Monocytes % % Eosinophils % % Basophils % % Neutrophils # (1.3-7.7) k/uL Lymphocytes # (1.0-4.8) k/uL Monocytes # (0-1.0) k/uL Eosinophils # (0-0.7) k/uL Basophils # (0-0.2) k/uL VBG pH (7.31-7.41) VBG pCO2 (37-51) mmHg VBG HCO3 (24-28) mmol/L Sodium 141 (137-145) mmol/L Potassium 4.2 (3.5-5.1) mmol/L Chloride 103 (98-107) mmol/L Carbon Dioxide 15 L (22-30) mmol/L Anion Gap 23 mmol/L BUN 10 (7-17) mg/dL Creatinine 0.60 (0.52-1.04) mg/dL Est GFR (MDRD) Af Amer >60 (>60 ml/min/1.73 sqM) Est GFR (MDRD) Non-Af >60 (>60 ml/min/1.73 sqM) Glucose 593 H* (74-99) mg/dL POC Glucose (mg/dL) >600 H (75-99) mg/dL POC Glu [employer] Angela Crockett Plasma Lactic Acid Daw[place] (0.7-2.0) mmol/L Calcium 10.0 (8.4-10.2) mg/dL Phosphorus 3.9 (2.5-4.5) mg/dL Magnesium 2.0 (1.6-2.3) mg/dL Total Bilirubin 0.6 (0.2-1.3) mg/dL AST 25 (14-36) U/L ALT 24 (9-52) U/L Alkaline Phosphatase 140 H (38-126) U/L Total Creatine Kinase 119 (30-135) U/L CK-MB (CK-2) 1.6 (0.0-2.4) ng/mL CK-MB (CK-2) Rel Index 1.3 Troponin I <0.012 (0.000-0.034) ng/mL Total Protein 7.8 (6.3-8.2) g/dL Albumin 4.9 (3.5-5.0) g/dL Urine Color Urine Appearance (Clear) Urine pH (5.0-8.0) Ur Specific [place] (1.001-1.035) Urine Protein (Negative) Urine Glucose (UA) (Negative) Urine Ketones (Negative) Urine Blood (Negative) Urine Nitrite (Negative) Urine Bilirubin (Negative) Urine Urobilinogen (<2.0) mg/dL Ur Leukocyte Esterase (Negative) Acetone, Qual Negative (Negative) 07/21/16 07/21/16 07/21/16 Range/Units 20:09 20:09 20:25 WBC 9.4 (3.8-10.6) k/uL RBC 4.77 (3.80-5.40) m/uL Hgb 14.6 (11.4-16.0) gm/dL Hct 43.5 (34.0-46.0) % MCV 91.1 (80.0-100.0) fL MCH 30.7 (25.0-35.0) pg MCHC 33.7 (31.0-37.0) g/dL RDW 13.1 (11.5-15.5) % Plt Count 165 (150-450) k/uL Neutrophils % 80 % Lymphocytes % 14 % Monocytes % 5 % Eosinophils % 0 % Basophils % 0 % Neutrophils # 7.4 (1.3-7.7) k/uL Lymphocytes # 1.3 (1.0-4.8) k/uL Monocytes # 0.5 (0-1.0) k/uL Eosinophils # 0.0 (0-0.7) k/uL Basophils # 0.0 (0-0.2) k/uL VBG pH (7.31-7.41) VBG pCO2 (37-51) mmHg VBG HCO3 (24-28) mmol/L Sodium (137-145) mmol/L Potassium (3.5-5.1) mmol/L Chloride (98-107) mmol/L Carbon Dioxide (22-30) mmol/L Anion Gap mmol/L BUN (7-17) mg/dL Creatinine (0.52-1.04) mg/dL Est GFR (MDRD) Af Amer (>60 ml/min/1.73 sqM) Est GFR (MDRD) Non-Af (>60 ml/min/1.73 sqM) Glucose (74-99) mg/dL POC Glucose (mg/dL) (75-99) mg/dL POC Glu [employer] Set[employer] ID Plasma Lactic Acid Daw[place] 10.4 H* (0.7-2.0) mmol/L Calcium (8.4-10.2) mg/dL Phosphorus (2.5-4.5) mg/dL Magnesium (1.6-2.3) mg/dL Total Bilirubin (0.2-1.3) mg/dL AST (14-36) U/L ALT (9-52) U/L Alkaline Phosphatase (38-126) U/L Total Creatine Kinase (30-135) U/L CK-MB (CK-2) (0.0-2.4) ng/mL CK-MB (CK-2) Rel Index Troponin I (0.000-0.034) ng/mL Total Protein (6.3-8.2) g/dL Albumin (3.5-5.0) g/dL Urine Color Light Yellow Urine Appearance Clear (Clear) Urine pH 5.0 (5.0-8.0) Ur Specific [place] 1.030 (1.001-1.035) Urine Protein Negative (Negative) Urine Glucose (UA) 4+ H (Negative) Urine Ketones Negative (Negative) Urine Blood Negative (Negative) Urine Nitrite Negative (Negative) Urine Bilirubin Negative (Negative) Urine Urobilinogen <2.0 (<2.0) mg/dL Ur Leukocyte Esterase Negative (Negative) Acetone, Qual (Negative) 07/21/16 Range/Units 20:25 WBC (3.8-10.6) k/uL RBC (3.80-5.40) m/uL Hgb (11.4-16.0) gm/dL Hct (34.0-46.0) % MCV (80.0-100.0) fL MCH (25.0-35.0) pg MCHC (31.0-37.0) g/dL RDW (11.5-15.5) % Plt Count (150-450) k/uL Neutrophils % % Lymphocytes % % Monocytes % % Eosinophils % % Basophils % % Neutrophils # (1.3-7.7) k/uL Lymphocytes # (1.0-4.8) k/uL Monocytes # (0-1.0) k/uL Eosinophils # (0-0.7) k/uL Basophils # (0-0.2) k/uL VBG pH 7.29 L (7.31-7.41) VBG pCO2 39 (37-51) mmHg VBG HCO3 18 L (24-28) mmol/L Sodium (137-145) mmol/L Potassium (3.5-5.1) mmol/L Chloride (98-107) mmol/L Carbon Dioxide (22-30) mmol/L Anion Gap mmol/L BUN (7-17) mg/dL Creatinine (0.52-1.04) mg/dL Est GFR (MDRD) Af Amer (>60 ml/min/1.73 sqM) Est GFR (MDRD) Non-Af (>60 ml/min/1.73 sqM) Glucose (74-99) mg/dL POC Glucose (mg/dL) (75-99) mg/dL POC Glu [employer] Set[employer] ID Plasma Lactic Acid Daw[place] (0.7-2.0) mmol/L Calcium (8.4-10.2) mg/dL Phosphorus (2.5-4.5) mg/dL Magnesium (1.6-2.3) mg/dL Total Bilirubin (0.2-1.3) mg/dL AST (14-36) U/L ALT (9-52) U/L Alkaline Phosphatase (38-126) U/L Total Creatine Kinase (30-135) U/L CK-MB (CK-2) (0.0-2.4) ng/mL CK-MB (CK-2) Rel Index Troponin I (0.000-0.034) ng/mL Total Protein (6.3-8.2) g/dL Albumin (3.5-5.0) g/dL Urine Color Urine Appearance (Clear) Urine pH (5.0-8.0) Ur Specific [place] (1.001-1.035) Urine Protein (Negative) Urine Glucose (UA) (Negative) Urine Ketones (Negative) Urine Blood (Negative) Urine Nitrite (Negative) Urine Bilirubin (Negative) Urine Urobilinogen (<2.0) mg/dL Ur Leukocyte Esterase (Negative) Acetone, Qual (Negative) - Radiology Data Radiology results: report reviewed (CT brain is negative for acute disease), image reviewed Critical Care Time Critical Care Time: Yes Total Critical Care Time: 31 Disposition Clinical Impression: Diabetic ketoacidosis, Dehydration, Vasovagal syncope, Lactic acidosis Disposition: ADMITTED IP TO THIS [facility] Condition: Serious
[2016-07-21 20:22] LABS: Appearance,Urine Clear (Clear); Basophils % (A) 0 %; Bilirubin,Urine Negative (Negative); CH 31.1; CHCM 34.4; Eosinophils % (A) 0 %; Glucose,Urine (UA) 4+ (Negative); HCT 43.5 % (34.0-46.0); HDW 3.03; HGB 14.6 gm/dL (11.4-16.0); Ketones,Urine Negative (Negative); Leukocyte Esterase,Urine Negative (Negative); Luc # (Auto) 0.07; Luc % (Auto) 1; Lymphocytes # (A) 1.3 k/uL (1.0-4.8); Lymphocytes % (A) 14 %; MCH 30.7 pg (25.0-35.0); MCHC 33.7 g/dL (31.0-37.0); MCV 91.1 fL (80.0-100.0); Mean Platelet Volume 6.8; Monocytes # (A) 0.5 k/uL (0-1.0); Monocytes % (A) 5 %; Neutrophils # (A) 7.4 k/uL (1.3-7.7); Neutrophils % (A) 80 %; Nitrite,Urine Negative (Negative); Protein,Urine Negative (Negative); RBC 4.77 m/uL (3.80-5.40); RDW 13.1 % (11.5-15.5); UA Billing (MACRO vs. MICRO) CHEM; Urobilinogen,Urine <2.0 mg/dL (<2.0); WBC 9.4 k/uL (3.8-10.6); WBC (Perox) 9.05
[2016-07-21 20:27] LABS: ALT 24 U/L (9-52); Alkaline Phosphatase 140 U/L (38-126); Anion Gap 23 mmol/L; Blood Urea Nitrogen 10 mg/dL (7-17); Carbon Dioxide 15 mmol/L (22-30); Chloride 103 mmol/L (98-107); Non-African American GFR(MDRD) >60 (>60 ml/min/1.73 sqM); Phosphorous 3.9 mg/dL (2.5-4.5); Potassium 4.2 mmol/L (3.5-5.1); Sodium 141 mmol/L (137-145); Total Bilirubin 0.6 mg/dL (0.2-1.3); Total Protein 7.8 g/dL (6.3-8.2)
[2016-07-21 20:29] LABS: Glucose 593 mg/dL (74-99)
[2016-07-21 20:33] LABS: AST 25 U/L (14-36)
[2016-07-21] MEDS ORDERED: INSULIN REGULAR BOLUS (FROM DRIP BAG) IV ONE (20:34)
[2016-07-21] MEDS ORDERED: SODIUM CHLORIDE 0.9% 2,000 ML IV STA (20:34)
[2016-07-21 20:42] LABS: Creatine Kinase 119 U/L (30-135)
[2016-07-21] MEDS ORDERED: INSULIN REGULAR 100 UNIT in SODIUM CHLORIDE 0.9% 100 ML IV SCH (20:45)
[2016-07-21] MEDS ORDERED: MORPHINE SULFATE 4 MG/ML SYRINGE IVP PRN (20:51)
[2016-07-21] MEDS ORDERED: ONDANSETRON 4 MG/2 ML VIAL IVP STA (20:51)
[2016-07-21] MEDS ORDERED: MORPHINE SULFATE 4 MG/ML SYRINGE IVP STA ×2 (20:51→20:54)
[2016-07-21 20:55] LABS: Creatine Kinase MB 1.6 ng/mL (0.0-2.4); Troponin I <0.012 ng/mL (0.000-0.034)
[2016-07-21] MEDS ORDERED: RX INFO: IV CONTRAST WAS GIVEN 1 EACH MISC MISCELLANE PRN (21:03)
--- NOTE | 2016-07-21 21:06 | CT ---
EXAMINATION TYPE: CT brain tamar mayer DATE OF EXAM: 07/21/2016 8:47 PM COMPARISON: NONE HISTORY: High sugar, dizziness with fall and frontal injury. CT DLP: 1375.70 mGycm Automated exposure control for dose reduction was used. TECHNIQUE: CT scan of the head and cervical spine are performed without contrast. FINDINGS: The ventricles and sulci appear normal. There is no mass effect nor midline shift. There is no sign of intracranial hemorrhage. The calvarium is intact. The cervical vertebra have normal alignment. There is narrowing and spurring at C6-7 disc. Posterior elements are intact. Skull base is intact. There is no evidence of a fracture. IMPRESSION: Spondylotic changes at C6-7. No fracture. Negative CT scan of the brain. There is a posterior disc herniation at C6-7.
--- NOTE | 2016-07-21 21:13 | XR ---
EXAMINATION TYPE: XR chest 2V DATE OF EXAM: 07/21/2016 8:52 PM COMPARISON: 02/10/2011 HISTORY: Syncope chest pain. TECHNIQUE: Frontal and lateral views of the chest are obtained. FINDINGS: Heart and mediastinum are normal. Lungs are clear. Diaphragm is normal. Bony thorax is int act. IMPRESSION: Normal chest. There is clearing of a minimal infiltrate in the right upper lobe compared to old exam.
[2016-07-21 21:19] LABS: Partial Thromboplastin Time 22.7 sec (22.0-30.0); Prothrombin Time 10.4 sec (9.0-12.0)
[2016-07-21 21:37] LABS: VBG PH 7.29 (7.31-7.41)
[2016-07-21 22:02] LABS: Glucose,Whole Blood 333 mg/dL (75-99)
[2016-07-21 22:34] LABS: Alcohol <10 mg/dL
[2016-07-21] MEDS: D5-0.45% NACL WITH KCL 20MEQ/L 1,000 ML IV SCH (22:44)
[2016-07-21 22:48] LABS: Glucose,Whole Blood 307 mg/dL (75-99)
[2016-07-21] MEDS ORDERED: DICYCLOMINE 10 MG CAP PO PRN (23:20)
[2016-07-22 00:08] LABS: Glucose,Whole Blood 263 mg/dL (75-99)
[2016-07-22] MEDS: SODIUM CHLORIDE 0.9% 1,000 ML IV SCH ×5 (00:10→17:17)
[2016-07-22 00:19] LABS: Glucose,Whole Blood 273 mg/dL (75-99)
[2016-07-22 00:29] LABS: Anion Gap 14 mmol/L; Blood Urea Nitrogen 8 mg/dL (7-17); Carbon Dioxide 22 mmol/L (22-30); Chloride 110 mmol/L (98-107); Glucose 255 mg/dL (74-99); Non-African American GFR(MDRD) >60 (>60 ml/min/1.73 sqM); Phosphorous 2.4 mg/dL (2.5-4.5); Potassium 3.5 mmol/L (3.5-5.1); Sodium 146 mmol/L (137-145)
[2016-07-22 00:43] VITALS: BMI 23.6
[2016-07-22] MEDS: HYDROmorphone 1 MG/ML 1 ML SYRINGE IVP PRN ×5 (01:01→20:38)
[2016-07-22 01:12] LABS: Glucose,Whole Blood 333 mg/dL (75-99)
[2016-07-22] MEDS: ONDANSETRON 4 MG/2 ML VIAL IVP PRN ×3 (01:14→15:14)
[2016-07-22] MEDS ORDERED: NALOXONE 0.4 MG/ML 1 ML VIAL IV PRN (01:29)
[2016-07-22 02:10] LABS: Glucose,Whole Blood 293 mg/dL (75-99)
[2016-07-22 03:07] LABS: Glucose,Whole Blood 281 mg/dL (75-99)
[2016-07-22 04:09] LABS: Glucose,Whole Blood 204 mg/dL (75-99)
[2016-07-22 04:42] LABS: Basophils % (A) 0 %; CH 30.4; CHCM 33.7; Eosinophils % (A) 0 %; HCT 37.6 % (34.0-46.0); HGB 12.9 gm/dL (11.4-16.0); Luc # (Auto) 0.09; Luc % (Auto) 1; Lymphocytes # (A) 1.7 k/uL (1.0-4.8); Lymphocytes % (A) 21 %; MCHC 34.2 g/dL (31.0-37.0); MCV 90.7 fL (80.0-100.0); Mean Platelet Volume 6.2; Monocytes # (A) 0.4 k/uL (0-1.0); Monocytes % (A) 5 %; Neutrophils # (A) 5.9 k/uL (1.3-7.7); Neutrophils % (A) 72 %; RBC 4.15 m/uL (3.80-5.40); RDW 12.8 % (11.5-15.5); WBC 8.2 k/uL (3.8-10.6); WBC (Perox) 8.66
[2016-07-22 05:03] LABS: Anion Gap 13 mmol/L; Calcium 8.6 mg/dL (8.4-10.2); Carbon Dioxide 19 mmol/L (22-30); Chloride 111 mmol/L (98-107); Glucose 214 mg/dL (74-99); Non-African American GFR(MDRD) >60 (>60 ml/min/1.73 sqM); Sodium 143 mmol/L (137-145); Total Bilirubin 0.5 mg/dL (0.2-1.3); Total Protein 6.1 g/dL (6.3-8.2)
[2016-07-22 05:22] LABS: ALT 29 U/L (9-52); AST 25 U/L (14-36); Blood Urea Nitrogen 6 mg/dL (7-17); Magnesium 1.8 mg/dL (1.6-2.3); Potassium 3.6 mmol/L (3.5-5.1)
[2016-07-22 05:23] LABS: Alkaline Phosphatase 90 U/L (38-126)
[2016-07-22 05:26] LABS: Glucose,Whole Blood 129 mg/dL (75-99)
[2016-07-22] MEDS ORDERED: Magnesium Replacement Protocol 1 EACH MISC MISCELLANE PRN (05:29)
[2016-07-22] MEDS ORDERED: Potassium Replacement Protocol 1 EACH MISC MISCELLANE PRN ×2 (05:29→10:30)
[2016-07-22] MEDS ORDERED: POTASSIUM CHLORIDE ER 20 MEQ TAB.ER PO SCH ×2 (06:00→11:00)
[2016-07-22] MEDS: D5-0.45% NACL WITH KCL 20MEQ/L 1,000 ML IV SCH ×3 (06:38→17:16)
[2016-07-22] MEDS: MAGNESIUM SULFATE-D5W PMX 1 GM in DEXTROSE/WATER 1 100ML.BAG IVPB SCH ×2 (06:38→07:41)
[2016-07-22 06:44] LABS: Glucose,Whole Blood 110 mg/dL (75-99)
[2016-07-22 07:11] LABS: Glucose,Whole Blood 171 mg/dL (75-99)
[2016-07-22] MEDS: HEPARIN SODIUM,PORCINE 5,000 UNIT/ML 1 ML VIAL SQ SCH ×2 (07:41→17:16)
[2016-07-22 08:08] LABS: Glucose,Whole Blood 229 mg/dL (75-99)
[2016-07-22] MEDS: ATENOLOL 50 MG TAB PO SCH (08:13)
[2016-07-22] MEDS: clonazePAM 1 MG TAB PO SCH ×2 (08:14→20:43)
[2016-07-22] MEDS: GABAPENTIN 100 MG CAP PO SCH ×2 (08:14→20:40)
[2016-07-22] MEDS: SERTRALINE 100 MG TAB PO SCH (08:14)
[2016-07-22] MEDS: CALCIUM CARB-VIT D 500MG-200UN 1 EACH TAB PO SCH ×2 (08:14→20:39)
[2016-07-22] MEDS: FAMOTIDINE 20 MG TAB PO SCH ×2 (08:14→20:40)
[2016-07-22] MEDS: LISINOPRIL 20 MG TAB PO SCH (08:14)
[2016-07-22] MEDS: LORATADINE 10 MG TAB PO SCH (08:14)
[2016-07-22] MEDS: METOCLOPRAMIDE 5 MG TAB PO SCH ×4 (08:14→20:50)
[2016-07-22] MEDS: MULTIVITAMINS, THERA 1 EACH TAB PO SCH (08:14)
[2016-07-22] MEDS ORDERED: PROCHLORPERAZINE 10 MG TAB PO PRN (09:00)
[2016-07-22 09:13] LABS: Glucose,Whole Blood 278 mg/dL (75-99)
[2016-07-22 09:18] LABS: ALT 30 U/L (9-52); AST 18 U/L (14-36); Alkaline Phosphatase 121 U/L (38-126); Anion Gap 9 mmol/L; Blood Urea Nitrogen 4 mg/dL (7-17); Calcium 7.7 mg/dL (8.4-10.2); Carbon Dioxide 19 mmol/L (22-30); Chloride 111 mmol/L (98-107); Glucose 229 mg/dL (74-99); Non-African American GFR(MDRD) >60 (>60 ml/min/1.73 sqM); Phosphorous 2.8 mg/dL (2.5-4.5); Potassium 3.6 mmol/L (3.5-5.1); Sodium 139 mmol/L (137-145); Total Bilirubin 0.2 mg/dL (0.2-1.3); Total Protein 5.2 g/dL (6.3-8.2)
[2016-07-22] MEDS ORDERED: INSULIN REGULAR 100 UNIT in SODIUM CHLORIDE 0.9% 100 ML IV SCH (09:35)
[2016-07-22 10:10] LABS: Glucose,Whole Blood 245 mg/dL (75-99)
[2016-07-22 11:12] LABS: Glucose,Whole Blood 208 mg/dL (75-99)
[2016-07-22 12:25] LABS: Hemoglobin A1C 9.9 % (4.2-6.1)
[2016-07-22 12:55] LABS: Glucose,Whole Blood 139 mg/dL (75-99)
--- NOTE | 2016-07-22 13:37 | P.HPIM ---
History of Present Illness H&P Date: 07/22/16 Chief Complaint: Syncope This is a 51-year-old female patient of Dr. Borges with previous medical history significant for familial dyslipidemia, recurrent pancreatitis and chronic abdominal pain, thought to be due to hypertriglyceridemia, hypertension and hypertensive cardiovascular disease, diabetes mellitus type 2 with recurrent diabetic ketoacidosis as well as episodes of hyperosmolar nonketotic hyperglycemia, hypertensive cardiovascular disease, chronic pain syndrome, gastroparesis, gastroesophageal reflux disease, diabetic polyneuropathy. She initially presented to [facility] emergency center on the morning of July 21 complaining of nausea vomiting or diarrhea that had been going on for one day and her blood sugar was high. Her initial blood sugar was 716. She was given 3 L of IV fluids, IV Zofran, IV Dilaudid, multiple doses of regular Humulin insulin and her blood sugar improved on 416 and she was discharged home. She states that when she got out of the car and was walking up to the house she ended up passing out. She was feeling lightheaded and woozy and ended up passing out completely but only for a brief period. She had her head. Her daughter brought her back into [facility]. She underwent a CAT scan of the brain and C-spine which showed negative CAT scan of the brain and posterior disc herniation of C6-7. Blood sugar was then 593, carbon dioxide 15 and anion gap 23, lactic acid 10.4, acetone negative. Patient was admitted to the ICU. Repeat lactic acid 4.5. Blood sugars are improved and she is currently on the insulin drip. Dr. Berry is on consult for intensive care management. Consult with cardiology regarding syncope. Ultrasound of the carotids ordered. Review of Systems All systems: negative Constitutional: Denies chills, Denies fever Eyes: denies blurred vision, denies pain Ears, nose, mouth and throat: Reports headache, Reports vertigo, Denies sore throat Cardiovascular: Reports lightheadedness, Reports syncope, Denies chest pain, Denies decreased exercise tolerance, Denies dyspnea on exertion, Denies edema, Denies leg edema, Denies paroxysmal nocturnal dyspnea, Denies shortness of breath Respiratory: Denies cough Gastrointestinal: Reports abdominal pain, Reports diarrhea, Reports nausea, Reports vomiting Genitourinary: Denies dysuria, Denies hematuria, Denies urgency, Denies urinary frequency Musculoskeletal: Denies myalgias Integumentary: Denies pruritus, Denies rash Neurological: Denies numbness, Denies weakness Psychiatric: Denies anxiety, Denies depression Endocrine: Denies fatigue, Denies weight change Past Medical History Past Medical History: Coronary Artery Disease (CAD), Diabetes Mellitus, GERD/ Reflux, Hyperlipidemia, Hypertension Additional Past Medical History / Comment(s): IDDM type I per pt, recurrent DKA in past, hypertensive heart disease, chronic pain syndrome, hypertriglyceridemia , chronic pancreatitis, chronic abdominal pain, gastroparesis, severe GERD, diabetic polyneuropathy mostly in hands and alittle in feet bilaterally, infectious colitis. History of Any Multi-Drug Resistant Organisms: None Reported Past Surgical History: Cholecystectomy Additional Past Surgical History / Comment(s): Biliary stent through an ERCP that was performed at [facility] and stent removed 2007, lap jenn, colonoscopy, ERCP. Past Anesthesia/Blood Transfusion Reactions: No Reported Reaction Additional Past Anesthesia/Blood Transfusion Reaction / Comment(s): Pt has never received blood."CLAUSTERPHOBIA" Past Psychological History: Anxiety, Depression, Panic Disorder, PTSD Additional Psychological History / Comment(s): Pt lives in her home with her gadiel , son-in-law and 2 grandchildren. She is independent. She currently is on disability. She drives a car a limited amount-family drive her places at times. She has anxiety and occasional anxiety-panic attacks. She sees Dr. Fink at [facility] and is councelled by Chad Samuels. She states her current psych med rigeme is working well. Her gadiel and dad help her out. She has a rescue dog. Smoking Status: Never smoker Past Alcohol Use History: None Reported Past Drug Use History: None Reported - Past Family History Father Family Medical History: No Reported History Additional Family Medical History / Comment(s): Father had severe anxiety and was hospitalized for this at times. Mother Family Medical History: Cancer Additional Family Medical History / Comment(s): Mother of metastatic breast CA at the age of 42yrs. Medications and Allergies Home Medications Medication Instructions Recorded Confirmed Type Lisinopril [Zestril] 20 mg PO DAILY 09/09/13 07/21/16 History HYDROmorphone [Dilaudid] 2 mg PO Q8H PRN 09/17/14 07/21/16 History Multivitamins, Thera [Multivitamin 1 tab PO DAILY 09/17/14 07/21/16 History (formulary)] Atenolol [Tenormin] 100 mg PO DAILY 11/19/14 07/21/16 History Calcium Carb-Vit D 500Mg-200Un 1 tab PO BID 11/19/14 07/21/16 History [Oscal 500+D] Mirtazapine [Remeron] 45 mg PO HS 11/19/14 07/21/16 History Rosuvastatin Calcium [Crestor] 40 mg PO HS 11/19/14 07/21/16 History Insulin Aspart [NovoLOG Flexpen] 26 unit SQ AC-BRKFST 10/14/15 07/21/16 History Insulin Aspart [NovoLOG Flexpen] 26 unit SQ AC-LUNCH 10/14/15 07/21/16 History Insulin Aspart [NovoLOG Flexpen] 36 units SQ AC-SUPPER 10/14/15 07/21/16 History Pancreatic Enzymes Otc(Unknown) 1 cap PO AC-TID 10/14/15 07/21/16 History Cetirizine HCl [Zyrtec] 10 mg PO DAILY 02/04/16 07/21/16 History Niacin 1,000 mg PO HS 02/04/16 07/21/16 History clonazePAM [KlonoPIN] 2 mg PO HS 02/04/16 07/21/16 History Insulin Detemir [Levemir] 66 unit SQ HS 07/21/16 07/21/16 History clonazePAM [KlonoPIN] 1 mg PO QAM 07/21/16 07/21/16 History Allergies Allergy/AdvReac Type Severity Reaction Status Date / Time NSAIDS (Non-Steroidal Allergy Rash/Hives Verified 07/21/16 19:31 Anti-Inflamma Physical Exam Vitals: Vital Signs Temp Pulse Resp BP Pulse Ox 07/22/16 10:00 71 12 105/55 96 07/22/16 09:00 94 50 H 114/61 98 07/22/16 08:00 96 24 110/59 97 07/22/16 07:00 90 25 H 103/54 96 07/22/16 06:00 90 16 103/59 96 07/22/16 05:00 92 20 122/67 97 07/22/16 04:00 97.6 F 85 21 99/47 94 L 07/22/16 03:00 87 22 105/57 95 07/22/16 02:00 94 114/60 93 L 07/22/16 01:00 97.8 F 88 20 134/66 97 07/22/16 00:19 81 07/21/16 23:55 82 16 115/66 97 Intake and Output 07/21/16 07/22/16 07/22/16 22:59 06:59 14:59 Intake Total 960.12 690.88 Balance 960.12 690.88 Intake: IV 900 450 D5-0.45% NaCl with KCl 900 450 20Meq/l 1,000 ml @ 150 mls/hr IV .[id number] ZACK Rx# :[id number] Intake, IV Titration 60.12 240.88 Amount Insulin Regular 100 unit 60.12 40.88 In Sodium Chloride 0.9% 100 ml @ 0.1 UNITS/KG/HR 6.23 mls/hr IV .[id number] ZACK Rx#:[id number] Magnesium Sulfate-D5w Pmx 200 1 gm In Dextrose/Water 1 100ml.bag @ 100 mls/hr IVPB Q1H ZACK Rx#: [id number] Other: # Voids 1 1 Weight 62.4 kg 62.4 kg General appearance: average body habitus, no acute distress - EENT Eyes: anicteric sclerae, PERRLA, no ptosis, no scleral icterus, normal appearance ENT: hearing grossly normal, normal oropharynx, no thrush Ears: bilateral: normal - Neck Neck: no lymphadenopathy, normal ROM, no rigidity, no stridor, no thyromegaly Carotids: bilateral: upstroke normal Thyroid: bilateral: normal size - Respiratory Respiratory: bilateral: diminished, negative: dullness, rales, rhonchi, wheezing , prolonged expiration, prolonged inspiration - Cardiovascular Rhythm: regular Heart sounds: normal: S1, S2 Abnormal Heart Sounds: no systolic murmur, no S3 Gallop, no S4 Gallop, no click - Gastrointestinal General gastrointestinal: normal bowel sounds, soft, no splenomegaly, no tenderness, no umbilical hernia, no ventral hernia - Integumentary Integumentary: normal, normal turgor - Neurologic Neurologic: CNII-XII intact - Musculoskeletal Musculoskeletal: generalized weakness, strength equal bilaterally - Psychiatric Psychiatric: A&O x's 3, appropriate affect, intact judgment & insight Results CBC & Chem 7: 07/22/16 04:05 07/22/16 08:34 Labs: Abnormal Lab Results - Last 24 Hours (Table) 07/21/16 07/21/16 07/21/16 Range/Units 21:59 22:00 22:39 Plt Count (150-450) k/uL Sodium (137-145) mmol/L Chloride (98-107) mmol/L Carbon Dioxide (22-30) mmol/L BUN (7-17) mg/dL Creatinine (0.52-1.04) mg/dL Glucose (74-99) mg/dL POC Glucose (mg/dL) 333 H 307 H (75-99) mg/dL Plasma Lactic Acid Dawit (0.7-2.0) mmol/L Calcium (8.4-10.2) mg/dL Phosphorus (2.5-4.5) mg/dL Total Protein (6.3-8.2) g/dL Albumin (3.5-5.0) g/dL Lipase 328 H (23-300) U/L 07/21/16 07/21/16 07/22/16 Range/Units 23:59 23:59 00:06 Plt Count (150-450) k/uL Sodium 146 H (137-145) mmol/L Chloride 110 H (98-107) mmol/L Carbon Dioxide (22-30) mmol/L BUN (7-17) mg/dL Creatinine 0.50 L (0.52-1.04) mg/dL Glucose 255 H (74-99) mg/dL POC Glucose (mg/dL) 263 H (75-99) mg/dL Plasma Lactic Acid Dawit 4.0 H* (0.7-2.0) mmol/L Calcium (8.4-10.2) mg/dL Phosphorus 2.4 L (2.5-4.5) mg/dL Total Protein (6.3-8.2) g/dL Albumin (3.5-5.0) g/dL Lipase (23-300) U/L 07/22/16 07/22/16 07/22/16 Range/Units 00:17 01:11 02:09 Plt Count (150-450) k/uL Sodium (137-145) mmol/L Chloride (98-107) mmol/L Carbon Dioxide (22-30) mmol/L BUN (7-17) mg/dL Creatinine (0.52-1.04) mg/dL Glucose (74-99) mg/dL POC Glucose (mg/dL) 273 H 333 H 293 H (75-99) mg/dL Plasma Lactic Acid Dawit (0.7-2.0) mmol/L Calcium (8.4-10.2) mg/dL Phosphorus (2.5-4.5) mg/dL Total Protein (6.3-8.2) g/dL Albumin (3.5-5.0) g/dL Lipase (23-300) U/L 07/22/16 07/22/16 07/22/16 Range/Units 03:06 04:05 04:05 Plt Count 133 L (150-450) k/uL Sodium (137-145) mmol/L Chloride 111 H (98-107) mmol/L Carbon Dioxide 19 L (22-30) mmol/L BUN 6 L (7-17) mg/dL Creatinine 0.50 L (0.52-1.04) mg/dL Glucose 214 H (74-99) mg/dL POC Glucose (mg/dL) 281 H (75-99) mg/dL Plasma Lactic Acid Dawit (0.7-2.0) mmol/L Calcium (8.4-10.2) mg/dL Phosphorus (2.5-4.5) mg/dL Total Protein 6.1 L (6.3-8.2) g/dL Albumin (3.5-5.0) g/dL Lipase (23-300) U/L 07/22/16 07/22/16 07/22/16 Range/Units 04:05 04:07 05:25 Plt Count (150-450) k/uL Sodium (137-145) mmol/L Chloride (98-107) mmol/L Carbon Dioxide (22-30) mmol/L BUN (7-17) mg/dL Creatinine (0.52-1.04) mg/dL Glucose (74-99) mg/dL POC Glucose (mg/dL) 204 H 129 H (75-99) mg/dL Plasma Lactic Acid Dawit 4.8 H* (0.7-2.0) mmol/L Calcium (8.4-10.2) mg/dL Phosphorus (2.5-4.5) mg/dL Total Protein (6.3-8.2) g/dL Albumin (3.5-5.0) g/dL Lipase (23-300) U/L 07/22/16 07/22/16 07/22/16 Range/Units 06:43 07:09 08:07 Plt Count (150-450) k/uL Sodium (137-145) mmol/L Chloride (98-107) mmol/L Carbon Dioxide (22-30) mmol/L BUN (7-17) mg/dL Creatinine (0.52-1.04) mg/dL Glucose (74-99) mg/dL POC Glucose (mg/dL) 110 H 171 H 229 H (75-99) mg/dL Plasma Lactic Acid Dawit (0.7-2.0) mmol/L Calcium (8.4-10.2) mg/dL Phosphorus (2.5-4.5) mg/dL Total Protein (6.3-8.2) g/dL Albumin (3.5-5.0) g/dL Lipase (23-300) U/L 07/22/16 07/22/16 07/22/16 Range/Units 08:34 08:34 09:10 Plt Count (150-450) k/uL Sodium (137-145) mmol/L Chloride 111 H (98-107) mmol/L Carbon Dioxide 19 L (22-30) mmol/L BUN 4 L (7-17) mg/dL Creatinine 0.50 L (0.52-1.04) mg/dL Glucose 229 H (74-99) mg/dL POC Glucose (mg/dL) 278 H (75-99) mg/dL Plasma Lactic Acid Dawit 4.5 H* (0.7-2.0) mmol/L Calcium 7.7 L (8.4-10.2) mg/dL Phosphorus (2.5-4.5) mg/dL Total Protein 5.2 L (6.3-8.2) g/dL Albumin 3.1 L (3.5-5.0) g/dL Lipase (23-300) U/L 07/22/16 Range/Units 10:08 Plt Count (150-450) k/uL Sodium (137-145) mmol/L Chloride (98-107) mmol/L Carbon Dioxide (22-30) mmol/L BUN (7-17) mg/dL Creatinine (0.52-1.04) mg/dL Glucose (74-99) mg/dL POC Glucose (mg/dL) 245 H (75-99) mg/dL Plasma Lactic Acid Dawit (0.7-2.0) mmol/L Calcium (8.4-10.2) mg/dL Phosphorus (2.5-4.5) mg/dL Total Protein (6.3-8.2) g/dL Albumin (3.5-5.0) g/dL Lipase (23-300) U/L Thrombosis Risk Factor Assmnt - DVT/VTE Prophylaxis DVT/VTE Prophylaxis: Pharmacologic Prophylaxis ordered - Choose All That Apply Any of the Below Risk Factors Present?: No Other Risk Factors: No Other congenital or acquired thrombophilia - If yes, enter type in comment: No Thrombosis Risk Factor Assessment Level: Very Low Risk Assessment and Plan Plan: 1. Syncopal episode with lightheadedness and dizziness prior to. Rule out cardiac arrhythmia. Consult with cardiology. Echocardiogram and carotid ultrasound. 2. Hyperosmolar nonketotic hyperglycemia. IV fluid, insulin drip, monitor the patient was a very closely every hour, and transition the patient to her Levemir once blood sugar with level is in the good range. Consult with Dr. Berry for intensive care management 3. History of diabetes mellitus type 2, insulin requiring we will transition the patient back to Levemir and Humalog. 4. Hypertension and hypertensive cardiovascular disease with left ventricular hypertrophy we will continue the patient on atenolol 100 mg orally once every day as well as lisinopril 20 mg orally once every day. 5. Hyperlipidemia continue the patient on Crestor 40 mg orally once every day, fenofibrate 160 mg orally once every day,Niaspan 1000 g orally once every. 6. Diabetic polyneuropathy continue gabapentin 200 mg orally twice every day. 7. Anxiety generalized disorder. Continue Klonopin 2 milligram in the evening and 1 mg in the morning. 8. Depression, recurrent. Continue Zoloft 200 mg orally once every day. 9. Gastroparesis continue Reglan 5 mg before each meal 3 times every day. 10. Chronic pancreatitis continue IV fluid resuscitation as well as current pain management in the form of Dilaudid along with fentanyl patch. 11. GERD continue PPI. 12. DVT. Continue heparin. 13. Full code. 14. Admit to inpatient. Estimated length of stay 2 midnights . Discharge plan: Return home Impression and plan of care have been directed as dictated by the signing physician. Amanda Kumar nurse practitioner acting as scribe for signing physician. Time with Patient: Greater than 30
[2016-07-22 14:17] LABS: Glucose,Whole Blood 133 mg/dL (75-99)
--- NOTE | 2016-07-22 14:35 | P.CNPUL ---
History of Present Illness Consult date: 07/22/16 Requesting physician: Mike Borges Reason for consult: other (Critical care management) Chief complaint: Nausea, vomiting, diarrhea History of present illness: This is a very pleasant 51-year-old female patient who follows with Dr. Borges as her primary care physician. She has a past medical history of coronary artery disease, diabetes mellitus, gastroesophageal reflux disease, hyperlipidemia, hypertension, insulin-dependent diabetes mellitus, recurrent diabetic ketoacidosis admissions, hypertriglyceridemia with chronic pancreatitis with previous ERCP and biliary stent placement, anxiety/panic attacks. She also has a history of diabetic gastroparesis and diabetic polyneuropathy. She presented here to the emergency room yesterday morning with complaints of nausea vomiting diarrhea and high blood sugars at home. Stating her home glucose monitor was reading in the 500s and subsequently 600 she presented to the emergency room for the same. She was treated for her hyperglycemia subsequent discharge from the emergency room. Later in the afternoon she continued with nausea and vomiting and her sugars were climbing back up. She went again to take herself to the emergency room and had a near syncopal episode in the driveway and did sustain injury to her forehead and the bridge of her nose. A computed tomography scan of the brain was negative. Her blood glucose at 8 PM was 593. Her lactic acidosis was 10.4. Anion gap 23. Acetone was negative. Based on the high lactic acid she was admitted to the intensive care unit last evening. She is seen today in consultation. She is awake and alert in no acute distress. Her nausea has subsided no further diarrhea or vomiting. Is starting to feel some hunger. She does remain currently on a insulin drip at 1.8 units per hour. Her last blood glucose is 133. The DKA protocol has been followed. She is currently on D5 with half normal saline at 20 mEq of potassium chloride at 150 MLS per hour. She has no pulmonary complaints. She is maintaining good O2 saturations in the upper 90s on room air. She has been afebrile. Her anion gap is closed at 9. Review of Systems 14 point review of system was conducted. All negative other than as mentioned in the HPI. Past Medical History Past Medical History: Coronary Artery Disease (CAD), Diabetes Mellitus, GERD/ Reflux, Hyperlipidemia, Hypertension Additional Past Medical History / Comment(s): IDDM type I per pt, recurrent DKA in past, hypertensive heart disease, chronic pain syndrome, hypertriglyceridemia , chronic pancreatitis, chronic abdominal pain, gastroparesis, severe GERD, diabetic polyneuropathy mostly in hands and alittle in feet bilaterally, infectious colitis. History of Any Multi-Drug Resistant Organisms: None Reported Past Surgical History: Cholecystectomy Additional Past Surgical History / Comment(s): Biliary stent through an ERCP that was performed at [facility] and stent removed 2007, lap jenn, colonoscopy, ERCP. Past Anesthesia/Blood Transfusion Reactions: No Reported Reaction Additional Past Anesthesia/Blood Transfusion Reaction / Comment(s): Pt has never received blood."CLAUSTERPHOBIA" Past Psychological History: Anxiety, Depression, Panic Disorder, PTSD Additional Psychological History / Comment(s): Pt lives in her home with her gadiel , son-in-law and 2 grandchildren. She is independent. She currently is on disability. She drives a car a limited amount-family drive her places at times. She has anxiety and occasional anxiety-panic attacks. She sees Dr. Fink at [facility] and is councelled by Chad Samuels. She states her current psych med rigeme is working well. Her gadiel and dad help her out. She has a rescue dog. Smoking Status: Never smoker Past Alcohol Use History: None Reported Past Drug Use History: None Reported - Past Family History Father Family Medical History: No Reported History Additional Family Medical History / Comment(s): Father had severe anxiety and was hospitalized for this at times. Mother Family Medical History: Cancer Additional Family Medical History / Comment(s): Mother of metastatic breast CA at the age of 42yrs. Medications and Allergies Home Medications Medication Instructions Recorded Confirmed Type Lisinopril [Zestril] 20 mg PO DAILY 09/09/13 07/21/16 History HYDROmorphone [Dilaudid] 2 mg PO Q8H PRN 09/17/14 07/21/16 History Multivitamins, Thera [Multivitamin 1 tab PO DAILY 09/17/14 07/21/16 History (formulary)] Atenolol [Tenormin] 100 mg PO DAILY 11/19/14 07/21/16 History Calcium Carb-Vit D 500Mg-200Un 1 tab PO BID 11/19/14 07/21/16 History [Oscal 500+D] Mirtazapine [Remeron] 45 mg PO HS 11/19/14 07/21/16 History Rosuvastatin Calcium [Crestor] 40 mg PO HS 11/19/14 07/21/16 History Insulin Aspart [NovoLOG Flexpen] 26 unit SQ AC-BRKFST 10/14/15 07/21/16 History Insulin Aspart [NovoLOG Flexpen] 26 unit SQ AC-LUNCH 10/14/15 07/21/16 History Insulin Aspart [NovoLOG Flexpen] 36 units SQ AC-SUPPER 10/14/15 07/21/16 History Pancreatic Enzymes Otc(Unknown) 1 cap PO AC-TID 10/14/15 07/21/16 History Cetirizine HCl [Zyrtec] 10 mg PO DAILY 02/04/16 07/21/16 History Niacin 1,000 mg PO HS 02/04/16 07/21/16 History clonazePAM [KlonoPIN] 2 mg PO HS 02/04/16 07/21/16 History Insulin Detemir [Levemir] 66 unit SQ HS 07/21/16 07/21/16 History clonazePAM [KlonoPIN] 1 mg PO QA 07/21/16 07/21/16 History Allergies Allergy/AdvReac Type Severity Reaction Status Date / Time NSAIDS (Non-Steroidal Allergy Rash/Hives Verified 07/21/16 19:31 Anti-Inflamma Physical Exam Vitals: Vital Signs Temp Pulse Resp BP Pulse Ox 07/22/16 10:00 71 12 105/55 96 07/22/16 09:00 94 50 H 114/61 98 07/22/16 08:00 96 24 110/59 97 07/22/16 07:00 90 25 H 103/54 96 07/22/16 06:00 90 16 103/59 96 07/22/16 05:00 92 20 122/67 97 07/22/16 04:00 97.6 F 85 21 99/47 94 L 07/22/16 03:00 87 22 105/57 95 07/22/16 02:00 94 114/60 93 L 07/22/16 01:00 97.8 F 88 20 134/66 97 07/22/16 00:19 81 07/21/16 23:55 82 16 115/66 97 Intake and Output 07/21/16 07/22/16 07/22/16 22:59 06:59 14:59 Intake Total 960.12 690.88 Balance 960.12 690.88 Intake: IV 900 450 D5-0.45% NaCl with KCl 900 450 20Meq/l 1,000 ml @ 150 mls/hr IV .[id number] ZACK Rx# :[id number] Intake, IV Titration 60.12 240.88 Amount Insulin Regular 100 unit 60.12 40.88 In Sodium Chloride 0.9% 100 ml @ 0.1 UNITS/KG/HR 6.23 mls/hr IV .[id number] ZACK Rx#:[id number] Magnesium Sulfate-D5w Pmx 200 1 gm In Dextrose/Water 1 100ml.bag @ 100 mls/hr IVPB Q1H ZACK Rx#: [id number] Other: # Voids 1 1 Weight 62.4 kg 62.4 kg 62.4 kg Patient Weight 07/23/16 06:59 Weight 62.4 kg GENERAL EXAM: Alert, active, comfortable in no apparent distress. HEAD: Normocephalic. EYES: Normal reaction of pupils, equal size. NOSE: Clear with pink turbinates. THROAT: No erythema or exudates. NECK: No masses, no JVD. CHEST: No chest wall deformity. LUNGS: Equal air entry with no crackles, wheeze, rhonchi or dullness. CVS: S1 and S2 normal with no audible mumurs, regular rhythm. ABDOMEN: No hepatosplenomegaly, normal bowel sounds, no guarding or rigidity. SPINE: No scoliosis or deformity SKIN: No rashes CENTRAL NERVOUS SYSTEM: No focal deficits, tone is normal in all 4 extremities. Extremities: There is no significant peripheral edema. No clubbing, no cyanosis. Peripheral pulses are intact. Results - Laboratory Findings CBC and BMP: 07/22/16 04:05 07/22/16 08:34 PT/INR, D-dimer PT 10.4 sec (9.0-12.0) 07/21/16 21:00 INR 1.0 (<1.1) 07/21/16 21:00 Abnormal lab findings: Abnormal Labs 07/21/16 07/21/16 07/21/16 21:59 22:00 22:39 Plt Count Sodium Chloride Carbon Dioxide BUN Creatinine Glucose POC Glucose (mg/dL) 333 H 307 H Hemoglobin A1c Plasma Lactic Acid Dawit Calcium Phosphorus Total Protein Albumin Lipase 328 H 07/21/16 07/21/16 07/22/16 23:59 23:59 00:06 Plt Count Sodium 146 H Chloride 110 H Carbon Dioxide BUN Creatinine 0.50 L Glucose 255 H POC Glucose (mg/dL) 263 H Hemoglobin A1c Plasma Lactic Acid Dawit 4.0 H* Calcium Phosphorus 2.4 L Total Protein Albumin Lipase 07/22/16 07/22/16 07/22/16 00:17 01:11 02:09 Plt Count Sodium Chloride Carbon Dioxide BUN Creatinine Glucose POC Glucose (mg/dL) 273 H 333 H 293 H Hemoglobin A1c Plasma Lactic Acid Dawit Calcium Phosphorus Total Protein Albumin Lipase 07/22/16 07/22/16 07/22/16 03:06 04:05 04:05 Plt Count Sodium Chloride 111 H Carbon Dioxide 19 L BUN 6 L Creatinine 0.50 L Glucose 214 H POC Glucose (mg/dL) 281 H Hemoglobin A1c 9.9 H Plasma Lactic Acid Dawit Calcium Phosphorus Total Protein 6.1 L Albumin Lipase 07/22/16 07/22/16 07/22/16 04:05 04:05 04:07 Plt Count 133 L Sodium Chloride Carbon Dioxide BUN Creatinine Glucose POC Glucose (mg/dL) 204 H Hemoglobin A1c Plasma Lactic Acid Dawit 4.8 H* Calcium Phosphorus Total Protein Albumin Lipase 07/22/16 07/22/16 07/22/16 05:25 06:43 07:09 Plt Count Sodium Chloride Carbon Dioxide BUN Creatinine Glucose POC Glucose (mg/dL) 129 H 110 H 171 H Hemoglobin A1c Plasma Lactic Acid Dawit Calcium Phosphorus Total Protein Albumin Lipase 07/22/16 07/22/16 07/22/16 08:07 08:34 08:34 Plt Count Sodium Chloride 111 H Carbon Dioxide 19 L BUN 4 L Creatinine 0.50 L Glucose 229 H POC Glucose (mg/dL) 229 H Hemoglobin A1c Plasma Lactic Acid Dawit 4.5 H* Calcium 7.7 L Phosphorus Total Protein 5.2 L Albumin 3.1 L Lipase 07/22/16 07/22/16 07/22/16 09:10 10:08 11:10 Plt Count Sodium Chloride Carbon Dioxide BUN Creatinine Glucose POC Glucose (mg/dL) 278 H 245 H 208 H Hemoglobin A1c Plasma Lactic Acid Dawit Calcium Phosphorus Total Protein Albumin Lipase 07/22/16 07/22/16 12:52 14:15 Plt Count Sodium Chloride Carbon Dioxide BUN Creatinine Glucose POC Glucose (mg/dL) 139 H 133 H Hemoglobin A1c Plasma Lactic Acid Dawit Calcium Phosphorus Total Protein Albumin Lipase Assessment and Plan Plan: Impression: #1 Acute diabetic ketoacidosis/DKA with severe hyperglycemia and anion gap metabolic acidosis with initial anion gap 23, bicarb 103. #2 Lactic acidosis secondary to above, initially 10.4, currently 4.5. #3 Insulin-dependent diabetes mellitus, type II. #4 Acute on chronic recurrent pancreatitis. #5 Acute on chronic recurrent abdominal pain secondary to above. #6 Diabetic gastroparesis. #7 Diabetic peripheral neuropathy. #8 Hypertriglyceridemia. #9 Hypertension. #10 History of anxiety/depression with post stress disorder. #11 Chronic pain syndrome. #12 History of gastric esophageal reflux disease. #13 History of coronary artery disease. #14 Near syncopal episode most likely secondary to dehydration. Plan: The patient was seen and evaluated by Dr. Berry. She remains on the DKA protocol. She remains awake and alert in no acute distress. Her anion gap is closed. Current glucose 133. The insulin drip will continue to be titrated down and off. She could most likely be transferred out of the intensive care unit later this afternoon. We'll continue to monitor her labs closely. We'll continue to follow. Time with Patient: Greater than 30
[2016-07-22 15:12] LABS: Glucose,Whole Blood 115 mg/dL (75-99)
--- NOTE | 2016-07-22 16:37 | CONS ---
DATE OF CONSULTATION: This is a 51-year-old lady with a history of diabetes mellitus, hypertension and hypercholesterolemia. She also has hypertriglyceridemia and has had issues with pancreatitis in the past. She came into the hospital yesterday morning and was found to be in DKA, was given IV fluids, insulin, and after acidosis cleared she was sent home. Before she actually got inside the house, and in the garage itself after she returned home, she had episode when she felt dizzy, lightheaded, a sensation as though she was going to pass out, and she knew she was going to fall down. She tried to support herself and hurt herself on the forehead. She came back into the emergency room and was found to have hyperglycemia and was quite dehydrated. Her lactic acid levels are high. She has received IV fluids and insulin drip. Because of the episode of syncope, I was asked to see her. At the time of my evaluation she is resting comfortably, indicates to me that her episode of syncope happened because she felt very dehydrated and nauseated. The syncopal spell was probably more or less related to a low-volume status. After arrival she was dehydrated with orthostatic changes and sugar of almost 600. At the time of my evaluation she is comfortable resting, without symptoms. PAST MEDICAL HISTORY: 1. Type 1 diabetes with multiple episodes of DKA. 2. History of hypertriglyceridemia. 3. History of chronic pancreatitis. 4. No evidence of any prior myocardial infarction or CVA. Patient does have history of hypertension. Medications at home include: 1. Zestril. 2. Atenolol. 3. Remeron. 4. Calcium supplements. 5. Multivitamins. 6. Insulin NovoLog. 7. She takes pancreatic enzymes. 8. Niacin. 9. Insulin in the form of Levemir and NovoLog pen. 10. Reglan. EKG revealed sinus mechanism with nonspecific T-wave flattening. On examination, blood pressure is 110/70. Pulse rate is 80 per minute, regular. HEENT: Unremarkable. Fundus was not examined by me. Neck is supple. There is no JVD. I do not hear a carotid bruit. Heart exam reveals S1 and S2 heard normally. No rub, murmur or gallop. Lungs are clear. Abdomen is soft, non-tender. Lower extremities reveal normal pulses. No edema. Central nervous system is normal. IMPRESSION: 1. Episode of syncope that occurred secondary to dehydration and hyperglycemia. 2. Type 1 diabetes with elevated blood sugars. 3. History of hypertriglyceridemia. 4. History of pancreatitis, chronic, in a patient who takes pancreatic enzymes. RECOMMENDATIONS: No intervention is necessary from a cardiac standpoint. I would recommend an echocardiogram to assess LV function. We agree with hydration and correction of her blood sugars, which is already in progress. Adequate volume repletion and hydration and blood sugar control is advised. Will check an additional troponin level and echocardiogram. I discussed my thoughts in detail with the patient. Thank you very much for the consult.
--- NOTE | 2016-07-22 16:50 | US ---
EXAMINATION TYPE: US carotid duplex BILAT DATE OF EXAM: 07/22/2016 4:38 PM COMPARISON: NONE CLINICAL HISTORY: LVF. EXAM MEASUREMENTS: RIGHT: Peak Systolic Velocity (PSV) cm/sec ----- Right CCA: 90.0 ----- Right ICA: 85.6 ----- Right ECA: 69.7 ICA/CCA ratio: 1.0 RIGHT: End Diastole cm/sec ----- Right CCA: 25.2 ----- Right ICA: 20.8 ----- Right ECA: 11.5 LEFT: Peak Systolic Velocity (PSV) cm/sec ----- Left CCA: 112.9 ----- Left ICA: 86.6 ----- Left ECA: 71.4 ICA/CCA ratio: 0.8 LEFT: End Diastole cm/sec ----- Left CCA: 33.8 ----- Left ICA: 25.8 ----- Left ECA: 10.9 VERTEBRALS (direction of flow): Right Vertebral: Antegrade Left Vertebral: Antegrade No atherosclerotic changes No significant hemodynamic stenosis IMPRESSION: I DO NOT SEE EVIDENCE OF A HEMODYNAMICALLY SIGNIFICANT STENOSIS IN EITHER CAROTID SYSTEM. Criteria for Assigning % of Stenosis / Diameter reduction (Estimation based on the indirect measurements of the internal carotid artery velocities (ICA PSV). 1. Normal (no stenosis)=ICA PSV < 125 cm/s: ratio < 2.0: ICA EDV<40 cm/s. 2. Less than 50% stenosis=ICA PSV < 125 cm/s: ratio < 2.0: ICA EDV<40 cm/s. 3. 50 to 69% stenosis=ICA PSV of 125 to 230 cm/s: ration 2.0 ? 4.0: ICA EDV 40-100 cm/s. 4. Greater than 70% stenosis to near occlusion= ICA PSV > 230 cm/s: ratio > 4.0: ICA EDV > 100 cm/s. 5. Near occlusion= ICA PSV velocities may be low or undetectable: variable ratio and ICA EDV. 6. Total occlusion=unable to detect flow.
[2016-07-22 17:11] LABS: Glucose,Whole Blood 141 mg/dL (75-99)
[2016-07-22 18:31] LABS: Glucose,Whole Blood 168 mg/dL (75-99)
[2016-07-22 19:43] LABS: Glucose,Whole Blood 254 mg/dL (75-99)
[2016-07-22 20:34] LABS: Glucose,Whole Blood 281 mg/dL (75-99)
[2016-07-22] MEDS: ATORVASTATIN 80 MG TAB PO SCH (20:39)
[2016-07-22] MEDS: FENOFIBRATE 160 MG TAB PO SCH (20:40)
[2016-07-22] MEDS: INSULIN LISPRO (humaLOG) 300 UNIT/3 ML VIAL SQ SCH (20:49)
[2016-07-22] MEDS: MIRTAZAPINE 45 MG TABLET PO SCH (20:50)
[2016-07-22] MEDS: NIACIN TR 500 MG CAPSULE.ER PO SCH (20:50)
[2016-07-22] MEDS: INSULIN DETEMIR 100 UNIT/ML 10 ML VIAL SQ SCH (20:53)
[2016-07-22 21:57] LABS: Glucose,Whole Blood 221 mg/dL (75-99)
[2016-07-22] MEDS ORDERED: INSULIN LISPRO (humaLOG) 300 UNIT/3 ML VIAL SQ ONE (22:58)
[2016-07-22 23:04] LABS: Glucose,Whole Blood 162 mg/dL (75-99)
[2016-07-23] MEDS: HEPARIN SODIUM,PORCINE 5,000 UNIT/ML 1 ML VIAL SQ SCH ×5 (00:10→23:38)
[2016-07-23 00:30] LABS: Glucose,Whole Blood 124 mg/dL (75-99)
[2016-07-23] MEDS: ONDANSETRON 4 MG/2 ML VIAL IVP PRN ×2 (02:57→11:22)
[2016-07-23] MEDS: HYDROmorphone 1 MG/ML 1 ML SYRINGE IVP PRN ×5 (02:58→23:38)
[2016-07-23 06:06] LABS: Anion Gap 10 mmol/L; Blood Urea Nitrogen 3 mg/dL (7-17); Calcium 8.7 mg/dL (8.4-10.2); Carbon Dioxide 15 mmol/L (22-30); Chloride 118 mmol/L (98-107); Glucose 90 mg/dL (74-99); Magnesium 2.1 mg/dL (1.6-2.3); Non-African American GFR(MDRD) >60 (>60 ml/min/1.73 sqM); Phosphorous 3.7 mg/dL (2.5-4.5); Potassium 4.6 mmol/L (3.5-5.1); Sodium 143 mmol/L (137-145)
[2016-07-23 06:16] LABS: Glucose,Whole Blood 89 mg/dL (75-99)
[2016-07-23 07:13] LABS: Glucose,Whole Blood 94 mg/dL (75-99)
[2016-07-23] MEDS: INSULIN LISPRO (humaLOG) 300 UNIT/3 ML VIAL SQ SCH ×6 (08:01→21:00)
[2016-07-23] MEDS: clonazePAM 1 MG TAB PO SCH ×2 (08:31→21:09)
[2016-07-23] MEDS: GABAPENTIN 100 MG CAP PO SCH ×2 (10:22→21:10)
[2016-07-23] MEDS: ATENOLOL 50 MG TAB PO SCH (10:23)
[2016-07-23] MEDS: LISINOPRIL 20 MG TAB PO SCH (10:23)
[2016-07-23] MEDS: SERTRALINE 100 MG TAB PO SCH (10:23)
[2016-07-23] MEDS: CALCIUM CARB-VIT D 500MG-200UN 1 EACH TAB PO SCH ×2 (10:23→21:10)
[2016-07-23] MEDS: METOCLOPRAMIDE 5 MG TAB PO SCH ×4 (10:23→21:10)
[2016-07-23] MEDS: MULTIVITAMINS, THERA 1 EACH TAB PO SCH (10:23)
[2016-07-23] MEDS: LORATADINE 10 MG TAB PO SCH (10:23)
--- NOTE | 2016-07-23 10:42 | ECHOF ---
Referral Reason:pain/shortness of breath/post procedure MEASUREMENTS -------- HEIGHT: 162.6 cm WEIGHT: 62.1 kg BP: 105/55 RVIDd: 2.5 cm (< 3.3) IVSd: 1.1 cm (0.6 - 1.1) LVIDd: 3.3 cm (3.9 - 5.3) LVPWd: 0.8 cm (0.6 - 1.1) IVSs: 1.4 cm LVIDs: 2.2 cm LVPWs: 1.3 cm LA Diam: 3.4 cm (2.7 - 3.8) LAESV Index (A-L): 25.90 ml/m Ao Diam: 2.4 cm (2.0 - 3.7) AV Cusp: 1.3 cm (1.5 - 2.6) LA Diam: 2.4 cm (2.7 - 3.8) MV EXCURSION: 15.792 mm (> 18.000) MV EF SLOPE: 126 mm/s (70 - 150) EPSS: 0.3 cm MV E Walter: 0.91 m/s MV A Walter: 0.37 m/s MV E/A Ratio: 2.47 RAP: 15.00 mmHg RVSP: 45.70 mmHg FINDINGS -------- Sinus rhythm. This was a technically good study. Left ventricular wall thickness is normal. Overall left ventricular systolic function is normal with, an EF between 55 - 60 %. The right ventricle is normal in size. Normal LA size by volume 22+/-6 ml/m2. The right atrium is normal in size. Aortic valve is trileaflet and is mildly thickened. The mitral valve leaflets are mildly thickened. Mild mitral annular calcification present. Mild mitral regurgitation is present. Mild tricuspid regurgitation present. There is mild pulmonary hypertension. The right ventricular systolic pressure, as measured by Doppler, is 45.70mmHg. The pulmonic valve is normal. The aortic root size is normal. The inferior vena cava is dilated with poor inspiratory collapse which is consistent with estimated right atrial pressure of 15mmHg. There is no pericardial effusion. CONCLUSIONS -------- 1. Sinus rhythm. 2. Mild mitral annular calcification present. 3. Mild mitral regurgitation is present. 4. Mild tricuspid regurgitation present. 5. There is mild pulmonary hypertension. 6. The right ventricular systolic pressure, as measured by Doppler, is 45.70mmHg. 7. The pulmonic valve is normal. 8. The aortic root size is normal. 9. The inferior vena cava is dilated with poor inspiratory collapse which is consistent with estimated right atrial pressure of 15mmHg. 10. There is no pericardial effusion. 11. This was a technically good study. 12. Left ventricular wall thickness is normal. 13. Overall left ventricular systolic function is normal with, an EF between 55 - 60 %. 14. The right ventricle is normal in size. 15. Normal LA size by volume 22+/-6 ml/m2. 16. The right atrium is normal in size. 17. Aortic valve is trileaflet and is mildly thickened. 18. The mitral valve leaflets are mildly thickened. IT HELP DESK ANALYST: Gladys Rossi RDCS
--- NOTE | 2016-07-23 10:50 | P.PN ---
Subjective This is a 51-year-old female patient of Dr. Borges with previous medical history significant for familial dyslipidemia, recurrent pancreatitis and chronic abdominal pain, thought to be due to hypertriglyceridemia, hypertension and hypertensive cardiovascular disease, diabetes mellitus type 2 with recurrent diabetic ketoacidosis as well as episodes of hyperosmolar nonketotic hyperglycemia, hypertensive cardiovascular disease, chronic pain syndrome, gastroparesis, gastroesophageal reflux disease, diabetic polyneuropathy. She initially presented to [facility] emergency center on the morning of July 21 complaining of nausea vomiting or diarrhea that had been going on for one day and her blood sugar was high. Her initial blood sugar was 716. She was given 3 L of IV fluids, IV Zofran, IV Dilaudid, multiple doses of regular Humulin insulin and her blood sugar improved on 416 and she was discharged home. She states that when she got out of the car and was walking up to the house she ended up passing out. She was feeling lightheaded and woozy and ended up passing out completely but only for a brief period. She had her head. Her daughter brought her back into [facility]. She underwent a CAT scan of the brain and C-spine which showed negative CAT scan of the brain and posterior disc herniation of C6-7. Blood sugar was then 593, carbon dioxide 15 and anion gap 23, lactic acid 10.4, acetone negative. Patient was admitted to the ICU. Repeat lactic acid 4.5. Blood sugars are improved and she is currently on the insulin drip. Dr. Berry is on consult for intensive care management. Consult with cardiology regarding syncope. Ultrasound of the carotids ordered. 07/23: Shunt has been seen by Dr. Berry and she was cleared [facility]. Carotid ultrasound was negative for hemodynamically significant stenosis. Echocardiogram reveals EF 55-60% with mild mitral regurgitation, mild tricuspid regurgitation. Patient has been seen by compensation business partner, Dr. MARQUISE Villegas, for syncope thought to be due to dehydration and hyperglycemia. She is currently on clear liquid diet and tolerating. She is feeling stronger today. Blood sugars are improved and she is back on her home diabetic medications. IV fluids to saline lock. Diet will be advanced today and anticipate discharge tomorrow. Objective - Vital Signs Vital signs: Vital Signs Temp 96.8 F L 07/23/16 07:00 Pulse 83 07/23/16 07:00 Resp 16 07/23/16 07:00 BP 109/67 07/23/16 07:00 Pulse Ox 97 07/23/16 07:00 Intake & Output 07/22/16 07/23/16 07/23/16 18:59 06:59 18:59 Intake Total 1895.20 250 Balance 1895.20 250 Weight 62.4 kg Intake: IV 1350 250 .9 @100 100 D5-0.45% NaCl with KCl 1350 150 20Meq/l 1,000 ml @ 150 mls/hr IV .[id number] ZACK Rx# :[id number] Intake, IV Titration 545.20 Amount D5-0.45% NaCl with KCl 300 20Meq/l 1,000 ml @ 150 mls/hr IV .[id number] ZACK Rx# :[id number] Insulin Regular 100 unit 40.88 In Sodium Chloride 0.9% 100 ml @ 0.1 UNITS/KG/HR 6.23 mls/hr IV .[id number] ZACK Rx#:[id number] Insulin Regular 100 unit 4.32 In Sodium Chloride 0.9% 100 ml @ 0.1 UNITS/KG/HR 6.23 mls/hr IV .[id number] ZACK Rx#:[id number] Magnesium Sulfate-D5w Pmx 200 1 gm In Dextrose/Water 1 100ml.bag @ 100 mls/hr IVPB Q1H ZACK Rx#: [id number] Other: # Voids 1 1 1 - Exam General appearance: average body habitus, no acute distress - EENT Eyes: anicteric sclerae, PERRLA, no ptosis, no scleral icterus, normal appearance ENT: hearing grossly normal, normal oropharynx, no thrush Ears: bilateral: normal - Neck Neck: no lymphadenopathy, normal ROM, no rigidity, no stridor, no thyromegaly Carotids: bilateral: upstroke normal Thyroid: bilateral: normal size - Respiratory Respiratory: bilateral: diminished, negative: dullness, rales, rhonchi, wheezing , prolonged expiration, prolonged inspiration - Cardiovascular Rhythm: regular Heart sounds: normal: S1, S2 Abnormal Heart Sounds: no systolic murmur, no S3 Gallop, no S4 Gallop, no click - Gastrointestinal General gastrointestinal: normal bowel sounds, soft, no splenomegaly, no tenderness, no umbilical hernia, no ventral hernia - Integumentary Integumentary: normal, normal turgor - Neurologic Neurologic: CNII-XII intact - Musculoskeletal Musculoskeletal: generalized weakness, strength equal bilaterally - Psychiatric Psychiatric: A&O x's 3, appropriate affect, intact judgment & insight - Labs CBC & Chem 7: 07/22/16 04:05 07/23/16 04:38 Labs: Abnormal Lab Results - Last 24 Hours (Table) 07/22/16 07/22/16 07/22/16 Range/Units 04:05 11:10 12:52 Chloride (98-107) mmol/L Carbon Dioxide (22-30) mmol/L BUN (7-17) mg/dL POC Glucose (mg/dL) 208 H 139 H (75-99) mg/dL Hemoglobin A1c 9.9 H (4.2-6.1) % 07/22/16 07/22/16 07/22/16 Range/Units 14:15 15:10 17:09 Chloride (98-107) mmol/L Carbon Dioxide (22-30) mmol/L BUN (7-17) mg/dL POC Glucose (mg/dL) 133 H 115 H 141 H (75-99) mg/dL Hemoglobin A1c (4.2-6.1) % 07/22/16 07/22/16 07/22/16 Range/Units 18:29 19:41 20:32 Chloride (98-107) mmol/L Carbon Dioxide (22-30) mmol/L BUN (7-17) mg/dL POC Glucose (mg/dL) 168 H 254 H 281 H (75-99) mg/dL Hemoglobin A1c (4.2-6.1) % 07/22/16 07/22/16 07/23/16 Range/Units 21:55 23:02 00:28 Chloride (98-107) mmol/L Carbon Dioxide (22-30) mmol/L BUN (7-17) mg/dL POC Glucose (mg/dL) 221 H 162 H 124 H (75-99) mg/dL Hemoglobin A1c (4.2-6.1) % 07/23/16 Range/Units 04:38 Chloride 118 H (98-107) mmol/L Carbon Dioxide 15 L (22-30) mmol/L BUN 3 L (7-17) mg/dL POC Glucose (mg/dL) (75-99) mg/dL Hemoglobin A1c (4.2-6.1) % Assessment and Plan Plan: 1. Syncopal episode with lightheadedness and dizziness prior to. Rule out cardiac arrhythmia. Consult with cardiology. Echocardiogram and carotid ultrasound as above. 2. Hyperosmolar nonketotic hyperglycemia. Back on home medications Consult with Dr. Jamal beyer 3. History of diabetes mellitus type 2, insulin requiring we will transition the patient back to Levemir and Humalog. 4. Hypertension and hypertensive cardiovascular disease with left ventricular hypertrophy we will continue the patient on atenolol 100 mg orally once every day as well as lisinopril 20 mg orally once every day. 5. Hyperlipidemia continue the patient on Crestor 40 mg orally once every day, fenofibrate 160 mg orally once every day,Niaspan 1000 g orally once every. 6. Diabetic polyneuropathy continue gabapentin 200 mg orally twice every day. 7. Anxiety generalized disorder. Continue Klonopin 2 milligram in the evening and 1 mg in the morning. 8. Depression, recurrent. Continue Zoloft 200 mg orally once every day. 9. Gastroparesis continue Reglan 5 mg before each meal 3 times every day. 10. Chronic pancreatitis continue IV fluid resuscitation as well as current pain management in the form of Dilaudid along with fentanyl patch. 11. GERD continue PPI. 12. DVT. Continue heparin. 13. Full code. 14. Admit to inpatient. Estimated length of stay 2 midnights . Discharge plan: Return home on Tuesday Impression and plan of care have been directed as dictated by the signing physician. Amanda Kumar nurse practitioner acting as scribe for signing physician. Time with Patient: Greater than 30
[2016-07-23 12:28] LABS: Glucose,Whole Blood 47 mg/dL (75-99)
[2016-07-23 12:40] LABS: Glucose,Whole Blood 51 mg/dL (75-99)
[2016-07-23] MEDS: FAMOTIDINE 20 MG TAB PO SCH ×2 (12:56→21:10)
--- NOTE | 2016-07-23 13:28 | P.PN ---
Subjective This is a very pleasant 51-year-old female patient who follows with Dr. Borges as her primary care physician. She has a past medical history of coronary artery disease, diabetes mellitus, gastroesophageal reflux disease, hyperlipidemia, hypertension, insulin-dependent diabetes mellitus, recurrent diabetic ketoacidosis admissions, hypertriglyceridemia with chronic pancreatitis with previous ERCP and biliary stent placement, anxiety/panic attacks. She also has a history of diabetic gastroparesis and diabetic polyneuropathy. She presented here to the emergency room yesterday morning with complaints of nausea vomiting diarrhea and high blood sugars at home. Stating her home glucose monitor was reading in the 500s and subsequently 600 she presented to the emergency room for the same. She was treated for her hyperglycemia subsequent discharge from the emergency room. Later in the afternoon she continued with nausea and vomiting and her sugars were climbing back up. She went again to take herself to the emergency room and had a near syncopal episode in the driveway and did sustain injury to her forehead and the bridge of her nose. A computed tomography scan of the brain was negative. Her blood glucose at 8 PM was 593. Her lactic acidosis was 10.4. Anion gap 23. Acetone was negative. Based on the high lactic acid she was admitted to the intensive care unit last evening. She is seen today in consultation. She is awake and alert in no acute distress. Her nausea has subsided no further diarrhea or vomiting. Is starting to feel some hunger. She does remain currently on a insulin drip at 1.8 units per hour. Her last blood glucose is 133. The DKA protocol has been followed. She is currently on D5 with half normal saline at 20 mEq of potassium chloride at 150 MLS per hour. She has no pulmonary complaints. She is maintaining good O2 saturations in the upper 90s on room air. She has been afebrile. Her anion gap is closed at 9. The patient is seen again today 07/23/2016 in follow-up on the regular medical floor. She is awake and alert in no acute distress. Her blood glucose levels have been better controlled. Her chloride has scraped up to 118 with a bicarb of 15. Anion gap 10. Lactic had improved to 2.0. She is not hyperventilating. She denies any shortness of breath at all. He is maintaining good O2 saturations in the upper 90s on room air. She's been afebrile. She is back on her Levemir and Humalog per scale. She is tolerating a clear liquid diet that will be advanced to liquids at lunch. Objective - Vital Signs Vital signs: Vital Signs Temp 96.8 F L 07/23/16 07:00 Pulse 83 07/23/16 07:00 Resp 16 07/23/16 07:00 BP 109/67 07/23/16 07:00 Pulse Ox 97 07/23/16 07:00 Intake & Output 07/22/16 07/23/16 07/23/16 18:59 06:59 18:59 Intake Total 1895.20 250 Balance 1895.20 250 Weight 62.4 kg Intake: IV 1350 250 .9 @100 100 D5-0.45% NaCl with KCl 1350 150 20Meq/l 1,000 ml @ 150 mls/hr IV .Q6H40M ZACK Rx# :[id number] Intake, IV Titration 545.20 Amount D5-0.45% NaCl with KCl 300 20Meq/l 1,000 ml @ 150 mls/hr IV .Q6H40M ZACK Rx# :[id number] Insulin Regular 100 unit 40.88 In Sodium Chloride 0.9% 100 ml @ 0.1 UNITS/KG/HR 6.23 mls/hr IV .[id number] ZACK Rx#:[id number] Insulin Regular 100 unit 4.32 In Sodium Chloride 0.9% 100 ml @ 0.1 UNITS/KG/HR 6.23 mls/hr IV .[id number] ZACK Rx#:[id number] Magnesium Sulfate-D5w Pmx 200 1 gm In Dextrose/Water 1 100ml.bag @ 100 mls/hr IVPB Q1H ZACK Rx#: [id number] Other: # Voids 1 1 1 - Exam GENERAL EXAM: Alert, active, comfortable in no apparent distress. HEAD: Normocephalic. EYES: Normal reaction of pupils, equal size. NOSE: Clear with pink turbinates. THROAT: No erythema or exudates. NECK: No masses, no JVD. CHEST: No chest wall deformity. LUNGS: Equal air entry with no crackles, wheeze, rhonchi or dullness. CVS: S1 and S2 normal with no audible murmurs, regular rhythm. ABDOMEN: No hepatosplenomegaly, normal bowel sounds, no guarding or rigidity. SPINE: No scoliosis or deformity SKIN: No rashes CENTRAL NERVOUS SYSTEM: No focal deficits, tone is normal in all 4 extremities. Extremities: There is no significant peripheral edema. No clubbing, no cyanosis. Peripheral pulses are intact. - Labs CBC & Chem 7: 07/22/16 04:05 07/23/16 04:38 Labs: Abnormal Lab Results - Last 24 Hours (Table) 07/22/16 07/22/16 07/22/16 Range/Units 14:15 15:10 17:09 Chloride (98-107) mmol/L Carbon Dioxide (22-30) mmol/L BUN (7-17) mg/dL POC Glucose (mg/dL) 133 H 115 H 141 H (75-99) mg/dL 07/22/16 07/22/16 07/22/16 Range/Units 18:29 19:41 20:32 Chloride (98-107) mmol/L Carbon Dioxide (22-30) mmol/L BUN (7-17) mg/dL POC Glucose (mg/dL) 168 H 254 H 281 H (75-99) mg/dL 07/22/16 07/22/16 07/23/16 Range/Units 21:55 23:02 00:28 Chloride (98-107) mmol/L Carbon Dioxide (22-30) mmol/L BUN (7-17) mg/dL POC Glucose (mg/dL) 221 H 162 H 124 H (75-99) mg/dL 07/23/16 07/23/16 07/23/16 Range/Units 04:38 12:26 12:39 Chloride 118 H (98-107) mmol/L Carbon Dioxide 15 L (22-30) mmol/L BUN 3 L (7-17) mg/dL POC Glucose (mg/dL) 47 L 51 L (75-99) mg/dL Assessment and Plan Plan: Impression: #1 Acute diabetic ketoacidosis/DKA with severe hyperglycemia and anion gap metabolic acidosis with initial anion gap 23, bicarb 19. 07/23/2016 anion gap 10, bicarb 15. #2 Lactic acidosis secondary to above, initially 10.4, currently 4.5. 07/23/2016 recovered last lactic acid 2.0. #3 Insulin-dependent diabetes mellitus, type II. #4 Acute on chronic recurrent pancreatitis. #5 Acute on chronic recurrent abdominal pain secondary to above. #6 Diabetic gastroparesis. #7 Diabetic peripheral neuropathy. #8 Hypertriglyceridemia. #9 Hypertension. #10 History of anxiety/depression with post stress disorder. #11 Chronic pain syndrome. #12 History of gastric esophageal reflux disease. #13 History of coronary artery disease. #14 Near syncopal episode most likely secondary to dehydration. Plan: The patient was seen and evaluated by Dr. Berry. She is recovering from her DKA. She has no pulmonary complaints. She is stable from the pulmonary and critical care standpoint. We'll follow the patient on as-needed basis.
[2016-07-23 13:35] LABS: Glucose,Whole Blood 137 mg/dL (75-99)
[2016-07-23 16:46] LABS: Glucose,Whole Blood 81 mg/dL (75-99)
[2016-07-23] MEDS ORDERED: INSULIN LISPRO (humaLOG) 300 UNIT/3 ML VIAL SQ SCH (17:30)
[2016-07-23 20:52] LABS: Glucose,Whole Blood 130 mg/dL (75-99)
[2016-07-23] MEDS: MIRTAZAPINE 45 MG TABLET PO SCH (21:09)
[2016-07-23] MEDS: NIACIN TR 500 MG CAPSULE.ER PO SCH (21:09)
[2016-07-23] MEDS: INSULIN DETEMIR 100 UNIT/ML 10 ML VIAL SQ SCH (21:10)
[2016-07-23] MEDS: ATORVASTATIN 80 MG TAB PO SCH (21:10)
[2016-07-23] MEDS: FENOFIBRATE 160 MG TAB PO SCH (21:10)
[2016-07-24 03:26] LABS: Glucose,Whole Blood 86 mg/dL (75-99)
[2016-07-24] MEDS: HYDROmorphone 1 MG/ML 1 ML SYRINGE IVP PRN ×2 (06:22→10:42)
[2016-07-24 07:30] LABS: Glucose,Whole Blood 77 mg/dL (75-99)
[2016-07-24 08:07] VITALS: BP 97/59; PULSE 82; RESP 16; TEMP 97.6
[2016-07-24] MEDS: INSULIN LISPRO (humaLOG) 300 UNIT/3 ML VIAL SQ SCH ×4 (08:07→12:31)
[2016-07-24] MEDS: METOCLOPRAMIDE 5 MG TAB PO SCH ×2 (08:23→12:31)
[2016-07-24] MEDS: HEPARIN SODIUM,PORCINE 5,000 UNIT/ML 1 ML VIAL SQ SCH (08:23)
[2016-07-24] MEDS: GABAPENTIN 100 MG CAP PO SCH (08:24)
[2016-07-24] MEDS: ATENOLOL 50 MG TAB PO SCH ×2 (08:24→08:27)
[2016-07-24] MEDS: clonazePAM 1 MG TAB PO SCH (08:24)
[2016-07-24] MEDS: SERTRALINE 100 MG TAB PO SCH (08:24)
[2016-07-24] MEDS: LISINOPRIL 20 MG TAB PO SCH ×2 (08:24→08:27)
[2016-07-24] MEDS: CALCIUM CARB-VIT D 500MG-200UN 1 EACH TAB PO SCH (08:25)
[2016-07-24] MEDS: FAMOTIDINE 20 MG TAB PO SCH (08:25)
[2016-07-24] MEDS: LORATADINE 10 MG TAB PO SCH (08:26)
[2016-07-24] MEDS: MULTIVITAMINS, THERA 1 EACH TAB PO SCH (08:26)
[2016-07-24 09:29] LABS: Anion Gap 8 mmol/L; Blood Urea Nitrogen 3 mg/dL (7-17); Calcium 9.3 mg/dL (8.4-10.2); Carbon Dioxide 25 mmol/L (22-30); Chloride 109 mmol/L (98-107); Glucose 73 mg/dL (74-99); Magnesium 1.6 mg/dL (1.6-2.3); Non-African American GFR(MDRD) >60 (>60 ml/min/1.73 sqM); Phosphorous 3.5 mg/dL (2.5-4.5); Potassium 4.2 mmol/L (3.5-5.1); Sodium 142 mmol/L (137-145)
[2016-07-24 11:39] LABS: Glucose,Whole Blood 159 mg/dL (75-99)
--- NOTE | 2016-07-24 12:54 | P.DS ---
Providers Date of admission: 07/21/16 20:34 Expected date of discharge: 07/24/16 Attending physician: Mike Borges Consults: 07/21/16 21:26 Consult Physician Stat Consulting Provider: Zeeshan Berry Consult Reason/Comments: icu Do you want consulting provider notified?: Already Contacted 07/22/16 10:50 Consult Physician Routine Consulting Provider: Tami Villegas Consult Reason/Comments: syncope, hx familial hyperlipidemia Do you want consulting provider notified?: Yes Primary care physician: Mike Borges [facility] Course: This is a 51-year-old female patient of Dr. Borges with previous medical history significant for familial dyslipidemia, recurrent pancreatitis and chronic abdominal pain, thought to be due to hypertriglyceridemia, hypertension and hypertensive cardiovascular disease, diabetes mellitus type 2 with recurrent diabetic ketoacidosis as well as episodes of hyperosmolar nonketotic hyperglycemia, hypertensive cardiovascular disease, chronic pain syndrome, gastroparesis, gastroesophageal reflux disease, diabetic polyneuropathy. She initially presented to [facility] emergency center on the morning of July 21 complaining of nausea vomiting or diarrhea that had been going on for one day and her blood sugar was high. Her initial blood sugar was 716. She was given 3 L of IV fluids, IV Zofran, IV Dilaudid, multiple doses of regular Humulin insulin and her blood sugar improved on 416 and she was discharged home. She states that when she got out of the car and was walking up to the house she ended up passing out. She was feeling lightheaded and woozy and ended up passing out completely but only for a brief period. She had her head. Her daughter brought her back into [facility]. She underwent a CAT scan of the brain and C-spine which showed negative CAT scan of the brain and posterior disc herniation of C6-7. Blood sugar was then 593, carbon dioxide 15 and anion gap 23, lactic acid 10.4, acetone negative. Patient was admitted to the ICU. Repeat lactic acid 4.5. Blood sugars are improved and she is currently on the insulin drip. Dr. Berry is on consult for intensive care management. Consult with cardiology regarding syncope. Ultrasound of the carotids ordered. 07/23: Shunt has been seen by Dr. Berry and she was cleared [facility]. Carotid ultrasound was negative for hemodynamically significant stenosis. Echocardiogram reveals EF 55-60% with mild mitral regurgitation, mild tricuspid regurgitation. Patient has been seen by joy operator helper, Dr. MARQUISE Villegas, for syncope thought to be due to dehydration and hyperglycemia. She is currently on clear liquid diet and tolerating. She is feeling stronger today. Blood sugars are improved and she is back on her home diabetic medications. IV fluids to saline lock. Diet will be advanced today and anticipate discharge tomorrow. 07/24: Blood sugars have been controlled. Patient is complaining of diarrhea for which she is concern for C. diff colitis. Sample sent for C. difficile toxin which came back negative. Patient will be discharged home today in stable condition. Discharge Diagnoses: 1. Syncopal episode with lightheadedness and dizziness 2. Hyperosmolar nonketotic hyperglycemia. 3. History of diabetes mellitus type 2, insulin requiring 4. Hypertension and hypertensive cardiovascular disease with left ventricular hypertrophy 5. Hyperlipidemia 6. Diabetic polyneuropathy 7. Anxiety generalized disorder 8. Depression, recurrent 9. Gastroparesis 10. Chronic pancreatitis 11. GERD Discharge plan: Return home Impression and plan of care have been directed as dictated by the signing physician. Amanda Kumar nurse practitioner acting as scribe for signing physician. Patient Condition at Discharge: Good Plan - Discharge Summary Discharge Medication List Lisinopril [Zestril] 20 mg PO DAILY 09/09/13 [History] Fenofibrate [Lofibra] 160 mg PO HS tab 08/09/14 [Rx] Gabapentin [Neurontin] 200 mg PO BID cap 08/09/14 [Rx] Metoclopramide [Reglan] 5 mg PO ACHS tab 08/09/14 [Rx] Prochlorperazine [Compazine] 10 mg PO TID PRN #0 tab 08/09/14 [Rx] Sertraline [Zoloft] 200 mg PO DAILY tab 08/09/14 [Rx] HYDROmorphone [Dilaudid] 2 mg PO Q8H PRN 09/17/14 [History] Multivitamins, Thera [Multivitamin (formulary)] 1 tab PO DAILY 09/17/14 [History ] Atenolol [Tenormin] 100 mg PO DAILY 11/19/14 [History] Calcium Carb-Vit D 500Mg-200Un [Oscal 500+D] 1 tab PO BID 11/19/14 [History] Mirtazapine [Remeron] 45 mg PO HS 11/19/14 [History] Rosuvastatin Calcium [Crestor] 40 mg PO HS 11/19/14 [History] fentaNYL 25MCG/HR PATCH [Duragesic 25MCG/HR] 1 patch TRANSDERM Q72H #0 [Rx] Insulin Aspart [NovoLOG Flexpen] 26 unit SQ AC-BRKFST 10/14/15 [History] Insulin Aspart [NovoLOG Flexpen] 26 unit SQ AC-LUNCH 10/14/15 [History] Insulin Aspart [NovoLOG Flexpen] 36 units SQ AC-SUPPER 10/14/15 [History] Pancreatic Enzymes Otc(Unknown) 1 cap PO AC-TID 10/14/15 [History] Cetirizine HCl [Zyrtec] 10 mg PO DAILY 02/04/16 [History] Niacin 1,000 mg PO HS 02/04/16 [History] clonazePAM [KlonoPIN] 2 mg PO HS 02/04/16 [History] Dicyclomine [Bentyl] 10 mg PO TID PRN #90 cap 03/22/16 [Rx] Famotidine [Pepcid] 20 mg PO BID #0 03/22/16 [Rx] Insulin Detemir [Levemir] 66 unit SQ HS 07/21/16 [History] Ondansetron Odt [Zofran ODT] 4 mg PO Q8HR PRN #20 tab 07/21/16 [Rx] clonazePAM [KlonoPIN] 1 mg PO QAM 07/21/16 [History] Follow up Appointment(s)/Referral(s): Mike Borges MD [Primary Care Provider] - 1 Week Patient Instructions/Handouts: Syncope (DC), Type 2 Diabetes in Adults (DC) Discharge Disposition: HOME SELF-CARE
== END 2016-07-24 14:48 | disposition home or self-care (01) | DRG 638 ==
LOC: EC 19:26 → 6SEL 20:34 → 6ICU 23:51 → 4MS4W 07-23 06:40
PROVIDERS: ADMIT Internal Medicine; ATTEND Internal Medicine
DX: E11.00 Type 2 diabetes mellitus with hyperosmolarity without nonketotic hyperglycemic-hyperosmolar coma (NKHHC) (principal); K86.1 Other chronic pancreatitis; E87.0 Hyperosmolality and hypernatremia; I11.9 Hypertensive heart disease without heart failure; K31.84 Gastroparesis; I08.1 Rheumatic disorders of both mitral and tricuspid valves; E11.42 Type 2 diabetes mellitus with diabetic polyneuropathy; E11.43 Type 2 diabetes mellitus with diabetic autonomic (poly)neuropathy; E78.1 Pure hyperglyceridemia; E78.5 Hyperlipidemia, unspecified; G89.4 Chronic pain syndrome; E86.0 Dehydration; I25.10 Atherosclerotic heart disease of native coronary artery without angina pectoris; E78.00 Pure hypercholesterolemia, unspecified; K21.9 Gastro-esophageal reflux disease without esophagitis; F32.9 Major depressive disorder, single episode, unspecified; F41.1 Generalized anxiety disorder; F43.10 Post-traumatic stress disorder, unspecified; F41.0 Panic disorder [episodic paroxysmal anxiety]; Z90.49 Acquired absence of other specified parts of digestive tract; Z79.4 Long term (current) use of insulin; Z79.899 Other long term (current) drug therapy; W19.XXXA Unspecified fall, initial encounter
CPT/HCPCS: 36415; 70450; 71020; 72125; 74000; 80048; 80051; 80053; 80320; 81003; 82009; 82150; 82550; 82553; 82565; 82803; 82947; 83036; 83605; 83690; 83735; 84100; 84484; 84520; 85025; 85610; 85730; 87045; 87046; 87086; 87324; 87502; 93005; 93306; 93880; 96361; 96365; 96366; 96368; 96374; 96375; 96376; 99284; 99291

== ENCOUNTER 2016-09-01 00:53 | Inpatient (IN) | payer MEDICARE ==
[2016-09-01] MEDS ORDERED: ONDANSETRON 4 MG/2 ML VIAL IVP STA (01:13)
[2016-09-01] MEDS ORDERED: SODIUM CHLORIDE 0.9% 2,000 ML IV STA (01:13)
[2016-09-01 01:54] LABS: Appearance,Urine Clear (Clear); Bilirubin,Urine Negative (Negative); Glucose,Urine (UA) 4+ (Negative); Ketones,Urine Negative (Negative); Leukocyte Esterase,Urine Negative (Negative); Nitrite,Urine Negative (Negative); Protein,Urine Negative (Negative); Specific Gravity,Urine 1.027 (1.001-1.035); UA Billing (MACRO vs. MICRO) CHEM; Urobilinogen,Urine <2.0 mg/dL (<2.0)
[2016-09-01 01:56] LABS: Basophils % (A) 0 %; CH 30.9; CHCM 33.3; Eosinophils # (A) 0.1 k/uL (0-0.7); Eosinophils % (A) 1 %; HCT 44.3 % (34.0-46.0); HDW 2.86; HGB 14.6 gm/dL (11.4-16.0); Luc # (Auto) 0.03; Luc % (Auto) 0; Lymphocytes # (A) 0.9 k/uL (1.0-4.8); Lymphocytes % (A) 11 %; MCH 30.7 pg (25.0-35.0); Mean Platelet Volume 6.5; Monocytes # (A) 0.1 k/uL (0-1.0); Monocytes % (A) 1 %; Neutrophils % (A) 86 %; RBC 4.76 m/uL (3.80-5.40); RDW 13.2 % (11.5-15.5); WBC 8.1 k/uL (3.8-10.6); WBC (Perox) 7.69
[2016-09-01 02:10] LABS: ALT 28 U/L (9-52); AST 30 U/L (14-36); Alkaline Phosphatase 126 U/L (38-126); Amylase 71 U/L (30-110); Anion Gap 22 mmol/L; Blood Urea Nitrogen 12 mg/dL (7-17); Calcium 10.7 mg/dL (8.4-10.2); Carbon Dioxide 17 mmol/L (22-30); Chloride 102 mmol/L (98-107); Non-African American GFR(MDRD) >60 (>60 ml/min/1.73 sqM); Potassium 4.2 mmol/L (3.5-5.1); Sodium 141 mmol/L (137-145); Total Bilirubin 0.8 mg/dL (0.2-1.3)
--- NOTE | 2016-09-01 02:22 | ED ---
Abdominal Pain HPI - General Source: patient, RN notes reviewed, old records reviewed Mode of arrival: ambulatory Limitations: no limitations <Jojo Holly - Last Filed: 09/01/16 04:12> <Jerman Koo - Last Filed: 09/01/16 07:07> - General Chief Complaint: Abdominal Pain Stated Complaint: High Sugar/Abd Pain Time Seen by Provider: 09/01/16 01:13 - History of Present Illness Initial Comments: Is a 31-year-old female well-known to emergency department with chief complaint of epigastric abdominal panic episodes of vomiting and diarrhea. Patient reports that she is concerned she may have pancreatitis. She reports that her blood sugars have been elevated. Patient reports that she has been admitted in the past for lactic acidosis when this has occurred. Patient denies any recent fevers. She denies any chest pain or shortness of breath. (oJjo Holly) - Related Data Home Medications Medication Instructions Recorded Confirmed Lisinopril [Zestril] 20 mg PO DAILY 09/09/13 09/01/16 HYDROmorphone [Dilaudid] 2 mg PO Q8H PRN 09/17/14 09/01/16 Multivitamins, Thera [Multivitamin 1 tab PO DAILY 09/17/14 09/01/16 (formulary)] Atenolol [Tenormin] 100 mg PO DAILY 11/19/14 09/01/16 Calcium Carb-Vit D 500Mg-200Un 1 tab PO BID 11/19/14 09/01/16 [Oscal 500+D] Mirtazapine [Remeron] 45 mg PO HS 11/19/14 09/01/16 Rosuvastatin Calcium [Crestor] 40 mg PO HS 11/19/14 09/01/16 Insulin Aspart [NovoLOG Flexpen] 26 unit SQ AC-BRKFST 10/14/15 09/01/16 Insulin Aspart [NovoLOG Flexpen] 26 unit SQ AC-LUNCH 10/14/15 09/01/16 Insulin Aspart [NovoLOG Flexpen] 36 units SQ AC-SUPPER 10/14/15 09/01/16 Pancreatic Enzymes Otc(Unknown) 1 cap PO AC-TID 10/14/15 09/01/16 Cetirizine HCl [Zyrtec] 10 mg PO DAILY 02/04/16 09/01/16 Niacin 1,000 mg PO HS 02/04/16 09/01/16 clonazePAM [KlonoPIN] 2 mg PO HS 02/04/16 09/01/16 Insulin Detemir [Levemir] 66 unit SQ HS 07/21/16 09/01/16 clonazePAM [KlonoPIN] 1 mg PO QAM 07/21/16 09/01/16 Previous Rx's Medication Instructions Recorded Fenofibrate [Lofibra] 160 mg PO HS tab 08/09/14 Gabapentin [Neurontin] 200 mg PO BID cap 08/09/14 Metoclopramide [Reglan] 5 mg PO ACHS tab 08/09/14 Prochlorperazine [Compazine] 10 mg PO TID PRN #0 tab 08/09/14 Sertraline [Zoloft] 200 mg PO DAILY tab 08/09/14 fentaNYL 25MCG/HR PATCH [Duragesic 1 patch TRANSDERM Q72H #0 07/10/15 25MCG/HR] Dicyclomine [Bentyl] 10 mg PO TID PRN #90 cap 03/22/16 Famotidine [Pepcid] 20 mg PO BID #0 03/22/16 Ondansetron Odt [Zofran ODT] 4 mg PO Q8HR PRN #20 tab 07/21/16 Allergies Allergy/AdvReac Type Severity Reaction Status Date / Time NSAIDS (Non-Steroidal Allergy Rash/Hives Verified 09/01/16 01:07 Anti-Inflamma Review of Systems ROS Other: All systems not noted in ROS Statement are negative. <Jojo Holly - Last Filed: 09/01/16 04:12> ROS Other: All systems not noted in ROS Statement are negative. <Jerman Koo - Last Filed: 09/01/16 07:07> ROS Statement: Those systems with pertinent positive or pertinent negative responses have been documented in the HPI. Past Medical History Past Medical History: Coronary Artery Disease (CAD), Diabetes Mellitus, GERD/ Reflux, Hyperlipidemia, Hypertension Additional Past Medical History / Comment(s): IDDM type I per pt, recurrent DKA in past, hypertensive heart disease, chronic pain syndrome, hypertriglyceridemia , chronic pancreatitis, chronic abdominal pain, gastroparesis, severe GERD, diabetic polyneuropathy mostly in hands and alittle in feet bilaterally, infectious colitis. History of Any Multi-Drug Resistant Organisms: None Reported Past Surgical History: Cholecystectomy Additional Past Surgical History / Comment(s): Biliary stent through an ERCP that was performed at [facility] and stent removed 2007, lap jenn, colonoscopy, ERCP. Past Anesthesia/Blood Transfusion Reactions: No Reported Reaction Additional Past Anesthesia/Blood Transfusion Reaction / Comment(s): Pt has never received blood."CLAUSTERPHOBIA" Past Psychological History: Anxiety, Depression, Panic Disorder, PTSD Additional Psychological History / Comment(s): Pt lives in her home with her gadiel , son-in-law and 2 grandchildren. She is independent. She currently is on disability. She drives a car a limited amount-family drive her places at times. She has anxiety and occasional anxiety-panic attacks. She sees Dr. Fink at [facility] and is councelled by Chad Samuels. She states her current psych med rigeme is working well. Her gadiel and dad help her out. She has a rescue dog. Smoking Status: Never smoker Past Alcohol Use History: None Reported Past Drug Use History: None Reported - Past Family History Father Family Medical History: No Reported History Additional Family Medical History / Comment(s): Father had severe anxiety and was hospitalized for this at times. Mother Family Medical History: Cancer Additional Family Medical History / Comment(s): Mother of metastatic breast CA at the age of 42yrs. <Jooj Holly - Last Filed: 09/01/16 04:12> General Exam Limitations: no limitations General appearance: alert, in no apparent distress Head exam: Present: atraumatic, normocephalic, normal inspection Eye exam: Present: normal appearance, PERRL, EOMI. Absent: scleral icterus, conjunctival injection, periorbital swelling ENT exam: Present: normal exam, mucous membranes moist Neck exam: Present: normal inspection. Absent: tenderness, meningismus, lymphadenopathy Respiratory exam: Present: normal lung sounds bilaterally. Absent: respiratory distress, wheezes, rales, rhonchi, stridor Cardiovascular Exam: Present: regular rate, normal rhythm, normal heart sounds. Absent: systolic murmur, diastolic murmur, rubs, gallop, clicks GI/Abdominal exam: Present: soft, tenderness (Epigastric tenderness.), normal bowel sounds. Absent: distended, guarding, rebound, rigid Extremities exam: Present: normal inspection, full ROM, normal capillary refill. Absent: tenderness, pedal edema, joint swelling, calf tenderness Back exam: Present: normal inspection Neurological exam: Present: alert, oriented X3, CN II-XII intact Psychiatric exam: Present: normal affect, normal mood Skin exam: Present: warm, dry, intact, normal color. Absent: rash <Jojo Holly - Last Filed: 09/01/16 04:12> <Jerman Koo - Last Filed: 09/01/16 07:07> - General Exam Comments Initial Comments: This is a 51-year-old female. Patient is on appear to be in any acute distress. (Jojo Holly) Course <Jojo Holly - Last Filed: 09/01/16 04:12> <Jerman Koo - Last Filed: 09/01/16 07:07> Vital Signs 09/01/16 09/01/16 01:05 06:46 Temperature 98.0 F Pulse Rate 110 H 94 Respiratory 18 16 Rate Blood Pressure 126/86 120/65 O2 Sat by Pulse 97 98 Oximetry - Reevaluation(s) Reevaluation #1: 09/01/16 03:30 Patient reports that she continues to f feel somewhat ill. Patient reports that when she went to go to the bathroom she got lightheaded and reports that she "passed out". Patient was [place]. Patient has no evidence of hematoma or injuries on her face. Patient reports that she does feel okay. 09/01/16 03:36 (Jojo Holly) Reevaluation #2: 09/01/16 04:12 At 4 AM patient was endorsed to Dr. Roger. We'll repeat the lactic acid. ( Jojo Holly) Medical Decision Making - Lab Data Result diagrams: 09/01/16 01:45 09/01/16 01:45 - Radiology Data Radiology results: report reviewed <Jojo Holly - Last Filed: 09/01/16 04:12> - Lab Data Result diagrams: 09/01/16 01:45 09/01/16 01:45 <Jerman Koo - Last Filed: 09/01/16 07:07> - Medical Decision Making This is a 51-year-old Since prescribe a chief complaint of elevated blood sugars epigastric abdominal pain. Patient reports her sugars become elevated she is concerned that she may be tested lactic acidosis in DKA. Patient reports she also had some episodes of diarrhea lately. IV labs and fluids were given. Patient's blood sugar was 621. Patient will be given 8 units of insulin. Patient acetone is negative. Abdominal x-rays negative for any acute process. Patient's labs are noted to have an elevated lactic acid of 8. ( Jojo Holly) - Lab Data Lab Results 09/01/16 09/01/16 09/01/16 Range/Units 01:41 01:45 01:45 WBC 8.1 (3.8-10.6) k/uL RBC 4.76 (3.80-5.40) m/uL Hgb 14.6 (11.4-16.0) gm/dL Hct 44.3 (34.0-46.0) % MCV 93.0 (80.0-100.0) fL MCH 30.7 (25.0-35.0) pg MCHC 33.0 (31.0-37.0) g/dL RDW 13.2 (11.5-15.5) % Plt Count 183 (150-450) k/uL Neutrophils % 86 % Lymphocytes % 11 % Monocytes % 1 % Eosinophils % 1 % Basophils % 0 % Neutrophils # 7.0 (1.3-7.7) k/uL Lymphocytes # 0.9 L (1.0-4.8) k/uL Monocytes # 0.1 (0-1.0) k/uL Eosinophils # 0.1 (0-0.7) k/uL Basophils # 0.0 (0-0.2) k/uL Sodium 141 (137-145) mmol/L Potassium 4.2 (3.5-5.1) mmol/L Chloride 102 (98-107) mmol/L Carbon Dioxide 17 L (22-30) mmol/L Anion Gap 22 mmol/L BUN 12 (7-17) mg/dL Creatinine 0.70 (0.52-1.04) mg/dL Est GFR (MDRD) Af Amer >60 (>60 ml/min/1.73 sqM) Est GFR (MDRD) Non-Af >60 (>60 ml/min/1.73 sqM) Glucose 621 H* (74-99) mg/dL POC Glucose (mg/dL) (75-99) mg/dL POC Glu Box Sealing Machine Operator ID Plasma Lactic Acid Dawit (0.7-2.0) mmol/L Calcium 10.7 H (8.4-10.2) mg/dL Total Bilirubin 0.8 (0.2-1.3) mg/dL AST 30 (14-36) U/L ALT 28 (9-52) U/L Alkaline Phosphatase 126 (38-126) U/L Total Protein 8.0 (6.3-8.2) g/dL Albumin 5.1 H (3.5-5.0) g/dL Amylase 71 (30-110) U/L Lipase 107 (23-300) U/L Urine Color Colorless Urine Appearance Clear (Clear) Urine pH 5.0 (5.0-8.0) Ur Specific Bennett 1.027 (1.001-1.035) Urine Protein Negative (Negative) Urine Glucose (UA) 4+ H (Negative) Urine Ketones Negative (Negative) Urine Blood Negative (Negative) Urine Nitrite Negative (Negative) Urine Bilirubin Negative (Negative) Urine Urobilinogen <2.0 (<2.0) mg/dL Ur Leukocyte Esterase Negative (Negative) Acetone, Qual Negative (Negative) 09/01/16 09/01/16 09/01/16 Range/Units 01:45 05:45 05:46 WBC (3.8-10.6) k/uL RBC (3.80-5.40) m/uL Hgb (11.4-16.0) gm/dL Hct (34.0-46.0) % MCV (80.0-100.0) fL MCH (25.0-35.0) pg MCHC (31.0-37.0) g/dL RDW (11.5-15.5) % Plt Count (150-450) k/uL Neutrophils % % Lymphocytes % % Monocytes % % Eosinophils % % Basophils % % Neutrophils # (1.3-7.7) k/uL Lymphocytes # (1.0-4.8) k/uL Monocytes # (0-1.0) k/uL Eosinophils # (0-0.7) k/uL Basophils # (0-0.2) k/uL Sodium (137-145) mmol/L Potassium (3.5-5.1) mmol/L Chloride (98-107) mmol/L Carbon Dioxide (22-30) mmol/L Anion Gap mmol/L BUN (7-17) mg/dL Creatinine (0.52-1.04) mg/dL Est GFR (MDRD) Af Amer (>60 ml/min/1.73 sqM) Est GFR (MDRD) Non-Af (>60 ml/min/1.73 sqM) Glucose (74-99) mg/dL POC Glucose (mg/dL) 441 H (75-99) mg/dL POC Glu Box Sealing Machine Operator ID Olegario Trejo Plasma Lactic Acid Dawit 8.5 H* 7.1 H* (0.7-2.0) mmol/L Calcium (8.4-10.2) mg/dL Total Bilirubin (0.2-1.3) mg/dL AST (14-36) U/L ALT (9-52) U/L Alkaline Phosphatase (38-126) U/L Total Protein (6.3-8.2) g/dL Albumin (3.5-5.0) g/dL Amylase (30-110) U/L Lipase (23-300) U/L Urine Color Urine Appearance (Clear) Urine pH (5.0-8.0) Ur Specific Bennett (1.001-1.035) Urine Protein (Negative) Urine Glucose (UA) (Negative) Urine Ketones (Negative) Urine Blood (Negative) Urine Nitrite (Negative) Urine Bilirubin (Negative) Urine Urobilinogen (<2.0) mg/dL Ur Leukocyte Esterase (Negative) Acetone, Qual (Negative) - Radiology Data Abdominal CT scan for any acute changes. (Jojo Holly) Disposition <Jojo Holly - Last Filed: 09/01/16 04:12> <Jerman Koo - Last Filed: 09/01/16 07:07> Clinical Impression: Hyperglycemia, Lactic acidosis Disposition: ADMITTED IP TO THIS HOSP Condition: Poor Referrals: Mike Borges MD [Primary Care Provider] - 1-2 days
[2016-09-01 02:25] LABS: Glucose 621 mg/dL (74-99)
--- NOTE | 2016-09-01 02:25 | XR ---
EXAM: XR Abdomen Complete, 2 or More Views CLINICAL HISTORY: Abdominal pain TECHNIQUE: Frontal view of the abdomen/pelvis with upright view of the abdomen. COMPARISON: No relevant prior studies available. FINDINGS: Intraperitoneal space: No free air. Gastrointestinal tract: Nonobstructive bowel gas pattern. Organs: Right upper quadrant surgical clips suggesting prior cholecystectomy. Punctate calcifications within the pelvis, likely phleboliths. Bones/joints: Unremarkable. IMPRESSION: No acute findings.
[2016-09-01] MEDS ORDERED: INSULIN REGULAR 100 UNIT/ML VIAL IV ONE (02:26)
[2016-09-01] MEDS ORDERED: HYDROmorphone 1 MG/ML 1 ML SYRINGE IVP STA (02:50)
[2016-09-01] MEDS: SODIUM CHLORIDE 0.9% 1,000 ML IV SCH ×4 (04:05→11:19)
[2016-09-01 05:49] LABS: Glucose,Whole Blood 441 mg/dL (75-99)
[2016-09-01] MEDS ORDERED: SODIUM CHLORIDE 0.9% 1,000 ML IV ONE (06:28)
[2016-09-01] MEDS ORDERED: INSULIN REGULAR 100 UNIT in SODIUM CHLORIDE 0.9% 100 ML IV ONE (06:28)
[2016-09-01] MEDS ORDERED: INSULIN REGULAR 100 UNIT in SODIUM CHLORIDE 0.9% 100 ML IV SCH (07:00)
[2016-09-01] MEDS ORDERED: HYDROmorphone 2 MG TAB PO PRN (07:04)
[2016-09-01] MEDS ORDERED: PROCHLORPERAZINE 10 MG TAB PO PRN (07:04)
[2016-09-01] MEDS ORDERED: ONDANSETRON ODT 4 MG TAB PO PRN (07:04)
[2016-09-01] MEDS ORDERED: DICYCLOMINE 10 MG CAP PO PRN (07:04)
[2016-09-01] MEDS ORDERED: [UNRECOGNIZED DRUG - OTHER] PO SCH (07:30)
[2016-09-01] MEDS ORDERED: INSULIN LISPRO (humaLOG) 300 UNIT/3 ML VIAL SQ SCH ×4 (07:30→17:30)
[2016-09-01 08:12] LABS: Glucose,Whole Blood 327 mg/dL (75-99)
[2016-09-01] MEDS: FAMOTIDINE 20 MG TAB PO SCH ×2 (08:15→20:18)
[2016-09-01] MEDS: SERTRALINE 100 MG TAB PO SCH (08:15)
[2016-09-01] MEDS: ATENOLOL 50 MG TAB PO SCH (08:16)
[2016-09-01] MEDS: GABAPENTIN 100 MG CAP PO SCH ×2 (08:16→20:18)
[2016-09-01] MEDS: CALCIUM CARB-VIT D 500MG-200UN 1 EACH TAB PO SCH ×2 (08:16→20:19)
[2016-09-01] MEDS: LISINOPRIL 20 MG TAB PO SCH (08:16)
[2016-09-01] MEDS: METOCLOPRAMIDE 5 MG TAB PO SCH ×4 (08:16→20:18)
[2016-09-01 08:39] LABS: Anion Gap 16 mmol/L; Blood Urea Nitrogen 6 mg/dL (7-17); Carbon Dioxide 19 mmol/L (22-30); Chloride 109 mmol/L (98-107); Glucose 272 mg/dL (74-99); Non-African American GFR(MDRD) >60 (>60 ml/min/1.73 sqM); Phosphorous 3.1 mg/dL (2.5-4.5); Potassium 3.6 mmol/L (3.5-5.1); Sodium 144 mmol/L (137-145)
[2016-09-01 09:18] LABS: Glucose,Whole Blood 215 mg/dL (75-99)
[2016-09-01] MEDS: D5-0.45% NACL WITH KCL 20MEQ/L 1,000 ML IV SCH ×2 (10:14→16:41)
[2016-09-01 10:30] LABS: Glucose,Whole Blood 179 mg/dL (75-99)
[2016-09-01 11:24] LABS: Glucose,Whole Blood 180 mg/dL (75-99)
[2016-09-01 12:01] LABS: Anion Gap 13 mmol/L; Blood Urea Nitrogen 5 mg/dL (7-17); Carbon Dioxide 17 mmol/L (22-30); Chloride 113 mmol/L (98-107); Glucose 169 mg/dL (74-99); Non-African American GFR(MDRD) >60 (>60 ml/min/1.73 sqM); Phosphorous 3.4 mg/dL (2.5-4.5); Potassium 3.3 mmol/L (3.5-5.1); Sodium 143 mmol/L (137-145)
[2016-09-01] MEDS: HYDROmorphone 1 MG/ML 1 ML SYRINGE IVP PRN ×3 (12:32→20:09)
[2016-09-01 13:41] LABS: Glucose,Whole Blood 124 mg/dL (75-99)
--- NOTE | 2016-09-01 14:11 | P.HPIM ---
History of Present Illness H&P Date: 09/01/16 Chief Complaint: Hyperosmolar non ketotic hyperglycemia. his is a 51-year-old female patient of mine with previous medical history significant for familial dyslipidemia, recurrent pancreatitis and chronic abdominal pain, thought to be due to hypertriglyceridemia, hypertension and hypertensive cardiovascular disease, diabetes mellitus type 2 with recurrent diabetic ketoacidosis as well as episodes of hyperosmolar nonketotic hyperglycemia, hypertensive cardiovascular disease, chronic pain syndrome, gastroparesis, gastroesophageal reflux disease, diabetic polyneuropathy. She initially presented to emergency center 2:00 in the morning after 2 hours of increased abdominal pain associated with the nausea and diarrhea patient stated that she started not feeling well yesterday in the evening and she did not take Lantus however she took 33 units of Lantus instead and the she checked her blood glucose level that was quite high greater than 600 since her glucometer goes to 600, so she ended up coming to the ER she was found to have a blood glucose level of greater than 6 and she did receive for a liter of normal saline, and she was started on insulin drip, her ketone levels are negative, however lactic acid was high at 8 subsequently after fluid resuscitation dropped down to 7.1, patient ended up admitted to the hospital for hyperosmolar nonketotic hyperglycemia she was placed on insulin drip along with the rest of her medication she was admitted to the hospital for further evaluation and recommendation. While the patient was in the emergency department was going to the bathroom she had a syncopal episode she felt that the forehead without any evidence of any acute injuries, patient did not have any loss of consciousness, she did not have any injuries, she did have a little redness in the forehead and the nasal bridge however there was no acute injury noted. Review of Systems Constitutional: Reports chronic pain, Reports fatigue, Reports malaise, Reports weakness, Denies anorexia, Denies weight gain, Denies weight loss Eyes: denies blurred vision, denies bulging eye, denies decreased vision, denies diplopia Ears: deny: decreased hearing Ears, nose, mouth and throat: Denies dysphagia, Denies neck lump, Denies swelling in throat, Denies sore throat, Denies vertigo Cardiovascular: Reports high blood pressure, Denies chest pain, Denies decreased exercise tolerance, Denies paroxysmal nocturnal dyspnea, Denies rapid heart beat, Denies shortness of breath, Denies syncope Respiratory: Denies congestion, Denies cough with sputum, Denies dyspnea, Denies sleep apnea, Denies snoring, Denies wheezing Gastrointestinal: Reports abdominal pain, Reports bloating, Reports change in bowel habits, Reports diarrhea, Reports dyspepsia, Reports excessive gas, Reports indigestion, Reports loss of appetite, Reports nausea, Denies melena, Denies vomiting Genitourinary: Denies dysuria, Denies urgency Menstruation: Reports postmenopausal Musculoskeletal: Denies myalgias Musculoskeletal: absent: ankle pain, ankle stiffness, ankle swelling, elbow pain , elbow stiffness, elbow swelling, foot pain, foot stiffness, foot swelling, hand pain, hand stiffness, hand swelling, hip pain, hip stiffness, hip swelling , knee pain, knee stiffness, knee swelling, shoulder pain, shoulder stiffness, shoulder swelling, wrist pain, wrist stiffness, wrist swelling Integumentary: Denies pruritus, Denies rash Neurological: Denies numbness, Denies weakness Psychiatric: Reports anxiety, Reports depression, Denies mood swings, Denies paranoia, Denies sadness/tearfulness, Denies sleep disturbances, Denies suicidal ideation Endocrine: Denies fatigue, Denies weight change Past Medical History Past Medical History: Coronary Artery Disease (CAD), Diabetes Mellitus, GERD/ Reflux, Hyperlipidemia, Hypertension, Syncope Additional Past Medical History / Comment(s): IDDM typeII, recurrent DKA, episodes of hyperosmolar nonketonic hyperglycemia, hypertensive heart disease, chronic pain syndrome, hypertriglyceridemia, chronic pancreatitis, chronic abdominal pain, gastroparesis, severe GERD, diabetic polyneuropathy mostly in hands and alittle in feet bilaterally, infectious colitis. History of Any Multi-Drug Resistant Organisms: None Reported Past Surgical History: Cholecystectomy Additional Past Surgical History / Comment(s): Biliary stent through an ERCP that was performed at [facility] and stent removed 2007, lap jenn, colonoscopy, ERCP. Past Anesthesia/Blood Transfusion Reactions: No Reported Reaction Additional Past Anesthesia/Blood Transfusion Reaction / Comment(s): Pt has never received blood."CLAUSTERPHOBIA" Past Psychological History: Anxiety, Depression, Panic Disorder, PTSD Additional Psychological History / Comment(s): Pt lives in her home with her gadiel , son-in-law and 2 grandchildren. She is independent. She currently is on disability. She drives a car a limited amount-family drive her places at times. She has anxiety and occasional anxiety-panic attacks. She sees Dr. Fink at [facility] and is councelled by Chad Samuels. She states her current psych med rigeme is working well. Her gadiel and dad help her out. She has a rescue dog. Smoking Status: Never smoker Past Alcohol Use History: None Reported Past Drug Use History: None Reported - Past Family History Father Family Medical History: No Reported History Additional Family Medical History / Comment(s): Father had severe anxiety and was hospitalized for this at times. Mother Family Medical History: Cancer Additional Family Medical History / Comment(s): Mother of metastatic breast CA at the age of 42yrs. Medications and Allergies Home Medications Medication Instructions Recorded Confirmed Type Lisinopril [Zestril] 20 mg PO DAILY 09/09/13 09/01/16 History HYDROmorphone [Dilaudid] 2 mg PO Q8H PRN 09/17/14 09/01/16 History Multivitamins, Thera [Multivitamin 1 tab PO DAILY 09/17/14 09/01/16 History (formulary)] Atenolol [Tenormin] 100 mg PO DAILY 11/19/14 09/01/16 History Calcium Carb-Vit D 500Mg-200Un 1 tab PO BID 11/19/14 09/01/16 History [Oscal 500+D] Mirtazapine [Remeron] 45 mg PO HS 11/19/14 09/01/16 History Rosuvastatin Calcium [Crestor] 40 mg PO HS 11/19/14 09/01/16 History Insulin Aspart [NovoLOG Flexpen] 26 unit SQ AC-BRKFST 10/14/15 09/01/16 History Insulin Aspart [NovoLOG Flexpen] 26 unit SQ AC-LUNCH 10/14/15 09/01/16 History Insulin Aspart [NovoLOG Flexpen] 36 units SQ AC-SUPPER 10/14/15 09/01/16 History Pancreatic Enzymes Otc(Unknown) 1 cap PO AC-TID 10/14/15 09/01/16 History Cetirizine HCl [Zyrtec] 10 mg PO DAILY 02/04/16 09/01/16 History Niacin 1,000 mg PO HS 02/04/16 09/01/16 History clonazePAM [KlonoPIN] 2 mg PO HS 02/04/16 09/01/16 History Insulin Detemir [Levemir] 66 unit SQ HS 07/21/16 09/01/16 History clonazePAM [KlonoPIN] 1 mg PO QAM 07/21/16 09/01/16 History Allergies Allergy/AdvReac Type Severity Reaction Status Date / Time NSAIDS (Non-Steroidal Allergy Rash/Hives Verified 09/01/16 08:58 Anti-Inflamma Physical Exam Vitals: Vital Signs Temp Pulse Resp BP Pulse Ox 09/01/16 07:55 98.5 F 92 18 120/66 98 09/01/16 06:46 94 16 120/65 98 09/01/16 01:05 98.0 F 110 H 18 126/86 97 Intake and Output 08/31/16 09/01/16 09/01/16 22:59 06:59 14:59 Intake Total 3.485 Balance 3.485 Intake: Intake, IV Titration 3.485 Amount Insulin Regular 100 unit 3.485 In Sodium Chloride 0.9% 100 ml @ 3 UNIT/HR 3.03 mls/hr IV .Q24H ONE Rx#: [id number] Other: Weight 66.224 kg - Constitutional General appearance: average body habitus, no acute distress - EENT Eyes: anicteric sclerae, EOMI, PERRLA, no ptosis, no scleral icterus, normal appearance ENT: NA/AT, normal oropharynx, no thrush, no tonsillar exudates Ears: bilateral: normal - Neck Neck: no lymphadenopathy, normal ROM, no rigidity, no stridor, no thyromegaly Carotids: bilateral: upstroke normal Thyroid: bilateral: normal size - Respiratory Respiratory: bilateral: diminished, negative: dullness, rales, rhonchi, wheezing , prolonged expiration, prolonged inspiration - Cardiovascular Rhythm: regular Heart sounds: normal: S1, S2 Abnormal Heart Sounds: no systolic murmur, no diastolic murmur, no rub, no S3 Gallop, no S4 Gallop, no click - Gastrointestinal General gastrointestinal: normal bowel sounds, soft, tenderness (Epigastric area as well as left lower quadrant.) - Integumentary Integumentary: normal, normal turgor - Neurologic Neurologic: CNII-XII intact - Musculoskeletal Musculoskeletal: generalized weakness, strength equal bilaterally - Psychiatric Psychiatric: A&O x's 3, appropriate affect, intact judgment & insight Results CBC & Chem 7: 09/01/16 01:45 09/01/16 11:18 Labs: Abnormal Lab Results - Last 24 Hours (Table) 09/01/16 09/01/16 09/01/16 Range/Units 01:41 01:45 01:45 Lymphocytes # 0.9 L (1.0-4.8) k/uL Chloride (98-107) mmol/L Carbon Dioxide 17 L (22-30) mmol/L BUN (7-17) mg/dL Creatinine (0.52-1.04) mg/dL Glucose 621 H* (74-99) mg/dL POC Glucose (mg/dL) (75-99) mg/dL Plasma Lactic Acid Dawit (0.7-2.0) mmol/L Calcium 10.7 H (8.4-10.2) mg/dL Albumin 5.1 H (3.5-5.0) g/dL Urine Glucose (UA) 4+ H (Negative) 09/01/16 09/01/16 09/01/16 Range/Units 01:45 05:45 05:46 Lymphocytes # (1.0-4.8) k/uL Chloride (98-107) mmol/L Carbon Dioxide (22-30) mmol/L BUN (7-17) mg/dL Creatinine (0.52-1.04) mg/dL Glucose (74-99) mg/dL POC Glucose (mg/dL) 441 H (75-99) mg/dL Plasma Lactic Acid Dawit 8.5 H* 7.1 H* (0.7-2.0) mmol/L Calcium (8.4-10.2) mg/dL Albumin (3.5-5.0) g/dL Urine Glucose (UA) (Negative) 09/01/16 09/01/16 09/01/16 Range/Units 08:00 08:13 09:14 Lymphocytes # (1.0-4.8) k/uL Chloride 109 H (98-107) mmol/L Carbon Dioxide 19 L (22-30) mmol/L BUN 6 L (7-17) mg/dL Creatinine 0.46 L (0.52-1.04) mg/dL Glucose 272 H (74-99) mg/dL POC Glucose (mg/dL) 327 H 215 H (75-99) mg/dL Plasma Lactic Acid Dawit (0.7-2.0) mmol/L Calcium (8.4-10.2) mg/dL Albumin (3.5-5.0) g/dL Urine Glucose (UA) (Negative) 09/01/16 09/01/16 Range/Units 10:20 11:23 Lymphocytes # (1.0-4.8) k/uL Chloride (98-107) mmol/L Carbon Dioxide (22-30) mmol/L BUN (7-17) mg/dL Creatinine (0.52-1.04) mg/dL Glucose (74-99) mg/dL POC Glucose (mg/dL) 179 H 180 H (75-99) mg/dL Plasma Lactic Acid Dawit (0.7-2.0) mmol/L Calcium (8.4-10.2) mg/dL Albumin (3.5-5.0) g/dL Urine Glucose (UA) (Negative) Thrombosis Risk Factor Assmnt - DVT/VTE Prophylaxis DVT/VTE Prophylaxis: Mechanical Prophylaxis ordered, Low risk, early ambulation encouraged - Choose All That Apply Any of the Below Risk Factors Present?: Yes Each Factor Represents 1 point: Age 41-60 years Other Risk Factors: No Other congenital or acquired thrombophilia - If yes, enter type in comment: No Thrombosis Risk Factor Assessment Total Risk Factor Score: 1 Thrombosis Risk Factor Assessment Level: Low Risk Assessment and Plan Plan: Assessment and plan: 1. Syncopal episode with lightheadedness and dizziness while she was in the emergency department thought to be due to dehydration and there was no injuries noted. Keep the patient on monitor. 2. Hyperosmolar nonketotic hyperglycemia. IV fluid, insulin drip, monitor the patient was a very closely every hour, and transition the patient to her Levemir once blood sugar with level is in the good range. 3. History of diabetes mellitus type 2, insulin requiring we will transition the patient back to Levemir 66 units at bedtime along with Humalog. 4. Hypertension and hypertensive cardiovascular disease with left ventricular hypertrophy we will continue the patient on atenolol 100 mg orally once every day as well as lisinopril 20 mg orally once every day. 5. Hyperlipidemia continue the patient on Crestor 40 mg orally once every day, fenofibrate 160 mg orally once every day,Niaspan 1000 g orally once every. 6. Diabetic polyneuropathy continue gabapentin 200 mg orally twice every day. 7. Anxiety generalized disorder. Continue Klonopin 2 milligram in the evening and 1 mg in the morning. 8. Depression, recurrent. Continue Zoloft 200 mg orally once every day. 9. Gastroparesis continue Reglan 5 mg before each meal 3 times every day. 10. Chronic pancreatitis continue IV fluid resuscitation as well as current pain management in the form of Dilaudid along with fentanyl patch. 11. GERD continue PPI. 12. DVT. Continue heparin 5000 units subcutaneously every 12 hours. 13. Full code. 14. Admit to inpatient. Estimated length of stay 2 midnights .
[2016-09-01] MEDS: clonazePAM 1 MG TAB PO SCH ×2 (14:16→20:51)
[2016-09-01 15:14] LABS: Glucose,Whole Blood 155 mg/dL (75-99)
[2016-09-01 17:26] LABS: Glucose,Whole Blood 174 mg/dL (75-99)
[2016-09-01 20:17] LABS: Glucose,Whole Blood 273 mg/dL (75-99)
[2016-09-01] MEDS: ATORVASTATIN 80 MG TAB PO SCH (20:18)
[2016-09-01] MEDS: FENOFIBRATE 160 MG TAB PO SCH (20:18)
[2016-09-01] MEDS: MIRTAZAPINE 45 MG TABLET PO SCH (20:18)
[2016-09-01] MEDS: INSULIN DETEMIR 100 UNIT/ML 10 ML VIAL SQ SCH (20:20)
[2016-09-01] MEDS ORDERED: INSULIN DETEMIR 100 UNIT/ML 10 ML VIAL SQ SCH (21:00)
[2016-09-02] MEDS: HYDROmorphone 1 MG/ML 1 ML SYRINGE IVP PRN ×5 (04:44→21:39)
[2016-09-02 07:47] LABS: Glucose,Whole Blood 97 mg/dL (75-99)
[2016-09-02] MEDS: clonazePAM 1 MG TAB PO SCH ×2 (07:51→21:32)
[2016-09-02] MEDS: LISINOPRIL 20 MG TAB PO SCH ×2 (07:52→08:01)
[2016-09-02] MEDS: SERTRALINE 100 MG TAB PO SCH (07:52)
[2016-09-02] MEDS: GABAPENTIN 100 MG CAP PO SCH ×2 (07:52→21:31)
[2016-09-02] MEDS: CALCIUM CARB-VIT D 500MG-200UN 1 EACH TAB PO SCH ×2 (07:53→21:32)
[2016-09-02] MEDS: FAMOTIDINE 20 MG TAB PO SCH ×2 (07:53→21:32)
[2016-09-02] MEDS: ATENOLOL 50 MG TAB PO SCH (07:53)
[2016-09-02] MEDS: INSULIN LISPRO (humaLOG) 300 UNIT/3 ML VIAL SQ SCH ×2 (07:54→12:59)
[2016-09-02] MEDS: METOCLOPRAMIDE 5 MG TAB PO SCH ×4 (08:02→22:30)
[2016-09-02 08:10] LABS: CH 30.9; CHCM 34.4; HCT 37.2 % (34.0-46.0); HDW 3.03; HGB 12.6 gm/dL (11.4-16.0); MCH 30.7 pg (25.0-35.0); MCV 90.4 fL (80.0-100.0); Mean Platelet Volume 6.3; RBC 4.11 m/uL (3.80-5.40); WBC 8.6 k/uL (3.8-10.6)
[2016-09-02 08:22] VITALS: RESP 18
[2016-09-02 08:36] LABS: ALT 30 U/L (9-52); AST 29 U/L (14-36); Alkaline Phosphatase 75 U/L (38-126); Anion Gap 12 mmol/L; Blood Urea Nitrogen 7 mg/dL (7-17); Calcium 8.8 mg/dL (8.4-10.2); Carbon Dioxide 20 mmol/L (22-30); Chloride 111 mmol/L (98-107); Glucose 92 mg/dL (74-99); Non-African American GFR(MDRD) >60 (>60 ml/min/1.73 sqM); Potassium 3.8 mmol/L (3.5-5.1); Sodium 143 mmol/L (137-145); Total Bilirubin 0.9 mg/dL (0.2-1.3); Total Protein 6.4 g/dL (6.3-8.2)
[2016-09-02 11:27] LABS: Glucose,Whole Blood 68 mg/dL (75-99)
[2016-09-02 12:09] LABS: Glucose,Whole Blood 119 mg/dL (75-99)
--- NOTE | 2016-09-02 13:37 | P.PN ---
Subjective This is a 51-year-old female patient of [employer] with previous medical history significant for familial dyslipidemia, recurrent pancreatitis and chronic abdominal pain, thought to be due to hypertriglyceridemia, hypertension and hypertensive cardiovascular disease, diabetes mellitus type 2 with recurrent diabetic ketoacidosis as well as episodes of hyperosmolar nonketotic hyperglycemia, hypertensive cardiovascular disease, chronic pain syndrome, gastroparesis, gastroesophageal reflux disease, diabetic polyneuropathy. She initially presented to [facility] emergency center 2:00 in the morning after 2 hours of increased abdominal pain associated with the nausea and diarrhea patient stated that she started not feeling well yesterday in the evening and she did not take Lantus however she took 33 units of Lantus instead and the she checked her blood glucose level that was quite high greater than 600 since her glucometer goes to 600, so she ended up coming to the ER she was found to have a blood glucose level of greater than 6 and she did receive for a liter of normal saline, and she was started on insulin drip, her ketone levels are negative, however lactic acid was high at 8 subsequently after fluid resuscitation dropped down to 7.1, patient ended up admitted to the hospital for hyperosmolar nonketotic hyperglycemia she was placed on insulin drip along with the rest of her medication she was admitted to the hospital for further evaluation and recommendation. While the patient was in the emergency department was going to the bathroom she had a syncopal episode she felt that the forehead without any evidence of any acute injuries, patient did not have any loss of consciousness, she did not have any injuries, she did have a little redness in the forehead and the nasal bridge however there was no acute injury noted. 09/02: Patient is feeling nauseated with diarrhea area, abdominal pain, nausea, no vomiting, we will keep the patient of liquid diet, we'll continue with her Humalog per sliding scale insulin. Objective - Vital Signs Vital signs: Vital Signs Temp 97.9 F 09/02/16 07:00 Pulse 64 09/02/16 07:00 Resp 18 09/02/16 07:00 BP 130/71 09/02/16 07:00 Pulse Ox 99 09/02/16 07:00 Intake & Output 09/01/16 09/02/16 09/02/16 18:59 06:59 18:59 Intake Total 3.485 590 Balance 3.485 590 Weight 69 kg 69.5 kg Intake: Intake, IV Titration 3.485 Amount Insulin Regular 100 unit 3.485 In Sodium Chloride 0.9% 100 ml @ 3 UNIT/HR 3.03 mls/hr IV .Q24H ONE Rx#: [id number] Oral 590 Other: Voiding Method Toilet Toilet Toilet # Voids 3 1 - Exam - Constitutional General appearance: average body habitus, no acute distress - EENT Eyes: anicteric sclerae, EOMI, PERRLA, no ptosis, no scleral icterus, normal appearance ENT: NA/AT, normal oropharynx, no thrush, no tonsillar exudates Ears: bilateral: normal - Neck Neck: no lymphadenopathy, normal ROM, no rigidity, no stridor, no thyromegaly Carotids: bilateral: upstroke normal Thyroid: bilateral: normal size - Respiratory Respiratory: bilateral: diminished, negative: dullness, rales, rhonchi, wheezing , prolonged expiration, prolonged inspiration - Cardiovascular Rhythm: regular Heart sounds: normal: S1, S2 Abnormal Heart Sounds: no systolic murmur, no diastolic murmur, no rub, no S3 Gallop, no S4 Gallop, no click - Gastrointestinal General gastrointestinal: normal bowel sounds, soft, tenderness (Epigastric area as well as left lower quadrant.) - Integumentary Integumentary: normal, normal turgor - Neurologic Neurologic: CNII-XII intact - Musculoskeletal Musculoskeletal: generalized weakness, strength equal bilaterally - Psychiatric Psychiatric: A&O x's 3, appropriate affect, intact judgment & insight - Labs CBC & Chem 7: 09/02/16 07:28 09/02/16 07:28 Labs: Abnormal Lab Results - Last 24 Hours (Table) 09/01/16 09/01/16 09/01/16 Range/Units 13:36 15:12 17:20 Plt Count (150-450) k/uL Chloride (98-107) mmol/L Carbon Dioxide (22-30) mmol/L POC Glucose (mg/dL) 124 H 155 H 174 H (75-99) mg/dL 09/01/16 09/02/16 09/02/16 Range/Units 20:15 07:28 07:28 Plt Count 143 L (150-450) k/uL Chloride 111 H (98-107) mmol/L Carbon Dioxide 20 L (22-30) mmol/L POC Glucose (mg/dL) 273 H (75-99) mg/dL 09/02/16 09/02/16 Range/Units 11:19 12:04 Plt Count (150-450) k/uL Chloride (98-107) mmol/L Carbon Dioxide (22-30) mmol/L POC Glucose (mg/dL) 68 L 119 H (75-99) mg/dL Assessment and Plan Plan: Assessment and plan: 1. Syncopal episode with lightheadedness and dizziness while she was in the emergency department thought to be due to dehydration and there was no injuries noted. Keep the patient on monitor. 2. Hyperosmolar nonketotic hyperglycemia. IV fluid, insulin drip was discontinued, and the patient will be started on Levemir 66 units at bedtime along with the Humalog per scale. 3. History of diabetes mellitus type 2, insulin requiring we will transition the patient back to Levemir 66 units at bedtime along with Humalog. 4. Hypertension and hypertensive cardiovascular disease with left ventricular hypertrophy we will continue the patient on atenolol 100 mg orally once every day as well as lisinopril 20 mg orally once every day. 5. Hyperlipidemia continue the patient on Crestor 40 mg orally once every day, fenofibrate 160 mg orally once every day,Niaspan 1000 g orally once every. 6. Diabetic polyneuropathy continue gabapentin 200 mg orally twice every day. 7. Anxiety generalized disorder. Continue Klonopin 2 milligram in the evening and 1 mg in the morning. 8. Depression, recurrent. Continue Zoloft 200 mg orally once every day. 9. Gastroparesis continue Reglan 5 mg before each meal 3 times every day. 10. Chronic pancreatitis continue IV fluid resuscitation as well as current pain management in the form of Dilaudid along with fentanyl patch. 11. GERD continue PPI. 12. DVT. Continue heparin 5000 units subcutaneously every 12 hours.
[2016-09-02 13:56] VITALS: BMI 26.3
--- NOTE | 2016-09-02 14:39 | CDI ---
In responding to this query, please exercise your independent professional judgment. The [facility] Coding Staff and Clinical Documentation Specialists appreciate your assistance in clarifying documentation, maintaining compliance with coding guidelines, accurately documenting patients condition and capturing severity of illness. The fact that a question is asked does not imply that any particular answer is desired or expected. Communication forms are a method of clarifying documentation and are not made part of the Legal Health Record. Thank you in advance for your clarification. Last Revision, June [address] [facility] [address] Documentation Clarification Form Date: 09/02/2016 2:19:00 PM From: Dione Corral Admit Date: 09/01/2016 7:04:00 AM Patient Name: Yoon Rajput Visit Number: [id number] Discharge Date: Dr. Mike Borges History of diabetes and gastroparesis is documented in the H&P and progress notes. C/O or presenting symptoms: Abdominal pain with nausea and diarrhea. History/Risk Factors: Chronic pancreatitis, Hypertension and Hypertensive cardiovascular disease, Chronic pain syndrome Gastroesophageal reflux, Diabetic Polyneuropathy Clinical Indicators: Present not feeling well increased abdominal pain associated with nausea and diarrhea. She was found to have blood glucose greater than 600. Treatment: IV fluid resuscitation Insulin drip Reglan PO In your professional opinion, can you please clarify the relationship between the diabetes and the patients presenting symptoms if known? Diabetic Gastroparesis, type of Diabetes, controlled or uncontrolled. Unable to Determine Other Condition Please document in your progress notes and discharge summary in order to capture severity of illness and risk of mortality. Include clinical findings that support your diagnosis. FYI: Press F11 to launch patient chart Place X here if this finding has no clinical significance, is not applicable or if you are not able to provide any additional documentation. JANELL
[2016-09-02] MEDS ORDERED: INSULIN LISPRO (humaLOG) 300 UNIT/3 ML VIAL SQ SCH (17:30)
[2016-09-02 17:40] LABS: Glucose,Whole Blood 84 mg/dL (75-99)
[2016-09-02 20:55] LABS: Glucose,Whole Blood 129 mg/dL (75-99)
[2016-09-02] MEDS: INSULIN DETEMIR 100 UNIT/ML 10 ML VIAL SQ SCH (21:32)
[2016-09-02] MEDS: ATORVASTATIN 80 MG TAB PO SCH (21:32)
[2016-09-02] MEDS: FENOFIBRATE 160 MG TAB PO SCH (21:32)
[2016-09-02] MEDS: MIRTAZAPINE 45 MG TABLET PO SCH (21:33)
[2016-09-03 06:56] LABS: Glucose,Whole Blood 103 mg/dL (75-99)
[2016-09-03] MEDS: HYDROmorphone 1 MG/ML 1 ML SYRINGE IVP PRN (07:14)
[2016-09-03 08:06] VITALS: BP 123/75; PULSE 75; TEMP 98
[2016-09-03] MEDS: FAMOTIDINE 20 MG TAB PO SCH (08:22)
[2016-09-03] MEDS: SERTRALINE 100 MG TAB PO SCH (08:22)
[2016-09-03] MEDS: GABAPENTIN 100 MG CAP PO SCH (08:22)
[2016-09-03] MEDS: LISINOPRIL 20 MG TAB PO SCH (08:22)
[2016-09-03] MEDS: ATENOLOL 50 MG TAB PO SCH (08:23)
[2016-09-03] MEDS: INSULIN LISPRO (humaLOG) 300 UNIT/3 ML VIAL SQ SCH ×2 (08:23→13:12)
[2016-09-03] MEDS: CALCIUM CARB-VIT D 500MG-200UN 1 EACH TAB PO SCH (08:23)
[2016-09-03] MEDS: clonazePAM 1 MG TAB PO SCH (08:30)
[2016-09-03 09:07] LABS: Basophils % (A) 1 %; CH 31.2; CHCM 34.9; Eosinophils # (A) 0.1 k/uL (0-0.7); Eosinophils % (A) 1 %; HCT 39.2 % (34.0-46.0); HDW 3.03; HGB 13.7 gm/dL (11.4-16.0); Luc # (Auto) 0.11; Luc % (Auto) 2; Lymphocytes # (A) 2.6 k/uL (1.0-4.8); Lymphocytes % (A) 44 %; MCH 31.5 pg (25.0-35.0); Mean Platelet Volume 6.5; Monocytes # (A) 0.3 k/uL (0-1.0); Monocytes % (A) 5 %; Neutrophils # (A) 2.8 k/uL (1.3-7.7); Neutrophils % (A) 47 %; RBC 4.35 m/uL (3.80-5.40); WBC (Perox) 5.74
[2016-09-03 09:08] LABS: ALT 46 U/L (9-52); AST 50 U/L (14-36); Alkaline Phosphatase 69 U/L (38-126); Anion Gap 10 mmol/L; Blood Urea Nitrogen 7 mg/dL (7-17); Carbon Dioxide 25 mmol/L (22-30); Chloride 110 mmol/L (98-107); Glucose 81 mg/dL (74-99); Magnesium 1.6 mg/dL (1.6-2.3); Non-African American GFR(MDRD) >60 (>60 ml/min/1.73 sqM); Potassium 3.7 mmol/L (3.5-5.1); Sodium 145 mmol/L (137-145); Total Bilirubin 0.7 mg/dL (0.2-1.3); Total Protein 5.9 g/dL (6.3-8.2)
[2016-09-03] MEDS: METOCLOPRAMIDE 5 MG TAB PO SCH ×2 (09:28→13:12)
[2016-09-03 11:28] LABS: Glucose,Whole Blood 97 mg/dL (75-99)
--- NOTE | 2016-09-03 15:14 | P.DS ---
Providers Date of admission: 09/01/16 07:04 Expected date of discharge: 09/03/16 Attending physician: Mike Borges Primary care physician: Mike Borges [facility] Course: This is a 51-year-old female patient of mine with previous medical history significant for familial dyslipidemia, recurrent pancreatitis and chronic abdominal pain, thought to be due to hypertriglyceridemia, hypertension and hypertensive cardiovascular disease, diabetes mellitus type 2 with recurrent diabetic ketoacidosis as well as episodes of hyperosmolar nonketotic hyperglycemia, hypertensive cardiovascular disease, chronic pain syndrome, gastroparesis, gastroesophageal reflux disease, diabetic polyneuropathy. She initially presented to [facility] emergency center 2:00 in the morning after 2 hours of increased abdominal pain associated with the nausea and diarrhea patient stated that she started not feeling well yesterday in the evening and she did not take Lantus however she took 33 units of Lantus instead and the she checked her blood glucose level that was quite high greater than 600 since her glucometer goes to 600, so she ended up coming to the ER she was found to have a blood glucose level of greater than 6 and she did receive for a liter of normal saline, and she was started on insulin drip, her ketone levels are negative, however lactic acid was high at 8 subsequently after fluid resuscitation dropped down to 7.1, patient ended up admitted to the hospital for hyperosmolar nonketotic hyperglycemia she was placed on insulin drip along with the rest of her medication she was admitted to the hospital for further evaluation and recommendation. While the patient was in the emergency department was going to the bathroom she had a syncopal episode she felt that the forehead without any evidence of any acute injuries, patient did not have any loss of consciousness, she did not have any injuries, she did have a little redness in the forehead and the nasal bridge however there was no acute injury noted. 09/02: Patient is feeling nauseated with diarrhea area, abdominal pain, nausea, no vomiting, we will keep the patient of liquid diet, we'll continue with her Humalog per sliding scale insulin. 09/03: Patient has had no further syncopal episodes or lightheadedness. Blood sugars have been running 97-129. Patient will be discharged home today in stable condition. Discharge diagnoses: 1. Syncopal episode with lightheadedness and dizziness while she was in the emergency department thought to be due to dehydration 2. Hyperosmolar nonketotic hyperglycemia. 3. History of diabetes mellitus type 2, insulin requiring, uncontrolled 4. Hypertension and hypertensive cardiovascular disease with left ventricular hypertrophy 5. Hyperlipidemia 6. Diabetic polyneuropathy 7. Anxiety generalized disorder. 8. Depression, recurrent. 9. Diabetic gastroparesis 10. Chronic pancreatitis 11. GERD Discharge plan: Home Impression and plan of care have been directed as dictated by the signing physician. Amanda Kumar nurse practitioner acting as scribe for signing physician. Patient Condition at Discharge: Good Plan - Discharge Summary Discharge Medication List Lisinopril [Zestril] 20 mg PO DAILY 09/09/13 [History] Fenofibrate [Lofibra] 160 mg PO HS tab 08/09/14 [Rx] Gabapentin [Neurontin] 200 mg PO BID cap 08/09/14 [Rx] Metoclopramide [Reglan] 5 mg PO ACHS tab 08/09/14 [Rx] Prochlorperazine [Compazine] 10 mg PO TID PRN #0 tab 08/09/14 [Rx] Sertraline [Zoloft] 200 mg PO DAILY tab 08/09/14 [Rx] HYDROmorphone [Dilaudid] 2 mg PO Q8H PRN 09/17/14 [History] Multivitamins, Thera [Multivitamin (formulary)] 1 tab PO DAILY 09/17/14 [History ] Atenolol [Tenormin] 100 mg PO DAILY 11/19/14 [History] Calcium Carb-Vit D 500Mg-200Un [Oscal 500+D] 1 tab PO BID 11/19/14 [History] Mirtazapine [Remeron] 45 mg PO HS 11/19/14 [History] Rosuvastatin Calcium [Crestor] 40 mg PO HS 11/19/14 [History] fentaNYL 25MCG/HR PATCH [Duragesic 25MCG/HR] 1 patch TRANSDERM Q72H #0 [Rx] Insulin Aspart [NovoLOG Flexpen] 26 unit SQ AC-BRKFST 10/14/15 [History] Insulin Aspart [NovoLOG Flexpen] 26 unit SQ AC-LUNCH 10/14/15 [History] Insulin Aspart [NovoLOG Flexpen] 36 units SQ AC-SUPPER 10/14/15 [History] Pancreatic Enzymes Otc(Unknown) 1 cap PO AC-TID 10/14/15 [History] Cetirizine HCl [Zyrtec] 10 mg PO DAILY 02/04/16 [History] Niacin 1,000 mg PO HS 02/04/16 [History] clonazePAM [KlonoPIN] 2 mg PO HS 02/04/16 [History] Dicyclomine [Bentyl] 10 mg PO TID PRN #90 cap 03/22/16 [Rx] Famotidine [Pepcid] 20 mg PO BID #0 03/22/16 [Rx] Insulin Detemir [Levemir] 66 unit SQ HS 07/21/16 [History] Ondansetron Odt [Zofran ODT] 4 mg PO Q8HR PRN #20 tab 07/21/16 [Rx] clonazePAM [KlonoPIN] 1 mg PO QAM 07/21/16 [History] Follow up Appointment(s)/Referral(s): Mike Borges MD [Primary Care Provider] - 09/15/16 11:00 am () Patient Instructions/Handouts: Diabetic Gastroparesis (DC), Diabetic Hyperglycemia (DC)
== END 2016-09-03 15:32 | disposition home or self-care (01) | DRG 638 ==
LOC: EC 00:53 → 6SEL 07:04 → 5MS5E 13:00
PROVIDERS: ADMIT Internal Medicine; ATTEND Internal Medicine
DX: E11.00 Type 2 diabetes mellitus with hyperosmolarity without nonketotic hyperglycemic-hyperosmolar coma (NKHHC) (principal); E87.0 Hyperosmolality and hypernatremia; E87.2 Acidosis; K31.84 Gastroparesis; E11.43 Type 2 diabetes mellitus with diabetic autonomic (poly)neuropathy; K86.1 Other chronic pancreatitis; E78.1 Pure hyperglyceridemia; E78.5 Hyperlipidemia, unspecified; F32.9 Major depressive disorder, single episode, unspecified; F41.0 Panic disorder [episodic paroxysmal anxiety]; F41.1 Generalized anxiety disorder; F43.10 Post-traumatic stress disorder, unspecified; G89.4 Chronic pain syndrome; I11.9 Hypertensive heart disease without heart failure; I25.10 Atherosclerotic heart disease of native coronary artery without angina pectoris; K21.9 Gastro-esophageal reflux disease without esophagitis; Z79.4 Long term (current) use of insulin; Z79.899 Other long term (current) drug therapy; E86.0 Dehydration
CPT/HCPCS: 36415; 74000; 80051; 80053; 81003; 82009; 82150; 82565; 82947; 83605; 83690; 83735; 84100; 84520; 85025; 85027

== ENCOUNTER 2016-10-13 08:44 | Inpatient (IN) | payer MEDICARE ==
[2016-10-13] MEDS ORDERED: SODIUM CHLORIDE 0.9% 2,000 ML IV STA (09:01)
[2016-10-13] MEDS ORDERED: ONDANSETRON 4 MG/2 ML VIAL IVP STA (09:01)
[2016-10-13] MEDS ORDERED: HYDROmorphone 1 MG/ML 1 ML SYRINGE IVP STA (09:01)
--- NOTE | 2016-10-13 09:04 | ED ---
General Adult HPI - General Source: patient, RN notes reviewed Mode of arrival: ambulatory Limitations: no limitations <Becky Rachel - Last Filed: 10/13/16 12:24> <Piyush Castellanos - Last Filed: 10/13/16 12:28> - General Chief complaint: Recheck/Abnormal Lab/Rx Stated complaint: hyperglycemia Time Seen by Provider: 10/13/16 08:58 - History of Present Illness Initial comments: 51-year-old female presents to the emergency department with a chief complaint of hyperglycemia. Patient states that she is a diabetic. Patient states she also suffers from chronic pancreatitis. Patient states she developed abdominal pain nausea vomiting and noticed this morning that her sugar was high. Patient states she has been using her medication as discussed with her doctor. Patient states she has had episodes of diarrhea. Patient states pain is in epigastric area there is no radiation. Patient states it is much like her typical chronic pancreatitis flareup. Patient states she hasn't had any fever or chills with this. Patient denies any changes in urination. Patient states the pain is moderate without radiation. Patient states touch seems to make it worse. Patient states that when her glucose started to read high she came in to be evaluated. Patient denies any recent fever, chills, shortness of breath, chest pain, back pain, numbness or tingling, dysuria or hematuria, constipation, headaches or visual changes, or any other current symptoms. (Becky Rachel) - Related Data Home Medications Medication Instructions Recorded Confirmed Lisinopril [Zestril] 20 mg PO DAILY 09/09/13 10/13/16 HYDROmorphone [Dilaudid] 2 mg PO Q8H PRN 09/17/14 10/13/16 Multivitamins, Thera [Multivitamin 1 tab PO DAILY 09/17/14 10/13/16 (formulary)] Atenolol [Tenormin] 100 mg PO DAILY 11/19/14 10/13/16 Calcium Carb-Vit D 500Mg-200Un 1 tab PO BID 11/19/14 10/13/16 [Oscal 500+D] Mirtazapine [Remeron] 45 mg PO HS 11/19/14 10/13/16 Rosuvastatin Calcium [Crestor] 40 mg PO HS 11/19/14 10/13/16 Insulin Aspart [NovoLOG Flexpen] 26 unit SQ AC-BRKFST 10/14/15 10/13/16 Insulin Aspart [NovoLOG Flexpen] 26 unit SQ AC-LUNCH 10/14/15 10/13/16 Insulin Aspart [NovoLOG Flexpen] 36 units SQ AC-SUPPER 10/14/15 10/13/16 Pancreatic Enzymes Otc(Unknown) 1 cap PO AC-TID 10/14/15 10/13/16 Cetirizine HCl [Zyrtec] 10 mg PO DAILY 02/04/16 10/13/16 Niacin 1,000 mg PO HS 02/04/16 10/13/16 clonazePAM [KlonoPIN] 2 mg PO HS 02/04/16 10/13/16 Insulin Detemir [Levemir] 66 unit SQ HS 07/21/16 10/13/16 clonazePAM [KlonoPIN] 1 mg PO QAM 07/21/16 10/13/16 Previous Rx's Medication Instructions Recorded Fenofibrate [Lofibra] 160 mg PO HS tab 08/09/14 Gabapentin [Neurontin] 200 mg PO BID cap 08/09/14 Metoclopramide [Reglan] 5 mg PO ACHS tab 08/09/14 Prochlorperazine [Compazine] 10 mg PO TID PRN #0 tab 08/09/14 Sertraline [Zoloft] 200 mg PO DAILY tab 08/09/14 fentaNYL 25MCG/HR PATCH [Duragesic 1 patch TRANSDERM Q72H #0 07/10/15 25MCG/HR] Dicyclomine [Bentyl] 10 mg PO TID PRN #90 cap 03/22/16 Famotidine [Pepcid] 20 mg PO BID #0 03/22/16 Ondansetron Odt [Zofran ODT] 4 mg PO Q8HR PRN #20 tab 07/21/16 Allergies Allergy/AdvReac Type Severity Reaction Status Date / Time NSAIDS (Non-Steroidal Allergy Rash/Hives Verified 10/13/16 08:56 Anti-Inflamma Review of Systems ROS Other: All systems not noted in ROS Statement are negative. <Becky Rachel - Last Filed: 10/13/16 12:24> ROS Other: All systems not noted in ROS Statement are negative. <Piyush Castellanos - Last Filed: 10/13/16 12:28> ROS Statement: Those systems with pertinent positive or pertinent negative responses have been documented in the HPI. Past Medical History Past Medical History: Coronary Artery Disease (CAD), Diabetes Mellitus, GERD/ Reflux, Hyperlipidemia, Hypertension, Syncope Additional Past Medical History / Comment(s): IDDM typeII, recurrent DKA, episodes of hyperosmolar nonketonic hyperglycemia, hypertensive heart disease, chronic pain syndrome, hypertriglyceridemia, chronic pancreatitis, chronic abdominal pain, gastroparesis, severe GERD, diabetic polyneuropathy mostly in hands and alittle in feet bilaterally, infectious colitis. History of Any Multi-Drug Resistant Organisms: None Reported Past Surgical History: Cholecystectomy Additional Past Surgical History / Comment(s): Biliary stent through an ERCP that was performed at [facility] and stent removed 2007, lap jenn, colonoscopy, ERCP. Past Anesthesia/Blood Transfusion Reactions: No Reported Reaction Additional Past Anesthesia/Blood Transfusion Reaction / Comment(s): Pt has never received blood."CLAUSTERPHOBIA" Past Psychological History: Anxiety, Depression, Panic Disorder, PTSD Smoking Status: Never smoker Past Alcohol Use History: None Reported Past Drug Use History: None Reported - Past Family History Father Family Medical History: No Reported History Additional Family Medical History / Comment(s): Father had severe anxiety and was hospitalized for this at times. Mother Family Medical History: Cancer Additional Family Medical History / Comment(s): Mother of metastatic breast CA at the age of 42yrs. <Becky Rachel - Last Filed: 10/13/16 12:24> General Exam Limitations: no limitations <Becky Rachel - Last Filed: 10/13/16 12:24> <Piyush Castellanos - Last Filed: 10/13/16 12:28> - General Exam Comments Initial Comments: General: The patient is awake and alert, in no distress, and does not appear acutely ill. Eye: Pupils are equal, round and reactive to light, extra-ocular movements are intact; there is normal conjunctiva bilaterally. No signs of icterus. Ears, nose, mouth and throat: There are moist mucous membranes and no oral lesions. Neck: The neck is supple, there is no tenderness. Cardiovascular: There is a regular rate and rhythm. No murmur, rub or gallop is appreciated. Respiratory: Lungs are clear to auscultation, respirations are non-labored, breath sounds are equal. No wheezes, stridor, rales, or rhonchi. Gastrointestinal: Soft, non-distended, minimal tenderness in the epigastrium of the abdomen without masses or organomegaly noted. There is no rebound or guarding present. No CVA tenderness. Bowel sounds are unremarkable. Back: There is no tenderness to palpation in the midline. There is no obvious deformity. No rashes noted. Musculoskeletal: Normal ROM, no tenderness, There is no pedal edema. There is no calf tenderness or swelling. Sensation intact. Pulses equal bilaterally 2+. Neurological: CN II-XII intact, There are no obvious motor or sensory deficits. Coordination appears grossly intact. Speech is normal. Skin: Skin is warm and dry and no rashes or lesions are noted. Psychiatric: Cooperative, appropriate mood & affect, normal judgment. (Becky Rachel) Medical Decision Making - Lab Data Result diagrams: 10/13/16 09:31 10/13/16 09:31 - Radiology Data Radiology results: report reviewed, image reviewed <Becky Rachel - Last Filed: 10/13/16 12:24> - Lab Data Result diagrams: 10/13/16 09:31 10/13/16 09:31 <Piyush Castellanos - Last Filed: 10/13/16 12:28> - Medical Decision Making 51-year-old female presents for hyperglycemia and abdominal pain. This time patient continues to be hyperglycemic as well as his elevated lactic even after given 2 L here in the emergency department. This time we will admit the patient will start the patient on IV insulin. This is discussed with the patient and family and they are in agreement with plan. At this time all questions have been answered. Patient will be discharged. (Becky Rachel) Patient's chief complaint and labs were discussed with Dr. Flynn patient be admitted to the ICU because of elevated sugar and lactic acid. I also discussed the case with Dr. Leandra Berry retail leader. Dr. Castellanos (Piyush Castellanos) - Lab Data Lab Results 10/13/16 10/13/16 10/13/16 Range/Units 09:01 09:20 09:31 WBC (3.8-10.6) k/uL RBC (3.80-5.40) m/uL Hgb (11.4-16.0) gm/dL Hct (34.0-46.0) % MCV (80.0-100.0) fL MCH (25.0-35.0) pg MCHC (31.0-37.0) g/dL RDW (11.5-15.5) % Plt Count (150-450) k/uL Neutrophils % % Lymphocytes % % Monocytes % % Eosinophils % % Basophils % % Neutrophils # (1.3-7.7) k/uL Lymphocytes # (1.0-4.8) k/uL Monocytes # (0-1.0) k/uL Eosinophils # (0-0.7) k/uL Basophils # (0-0.2) k/uL Sodium 140 (137-145) mmol/L Potassium 4.4 (3.5-5.1) mmol/L Chloride 102 (98-107) mmol/L Carbon Dioxide 17 L (22-30) mmol/L Anion Gap 21 mmol/L BUN 14 (7-17) mg/dL Creatinine 0.63 (0.52-1.04) mg/dL Est GFR (MDRD) Af Amer >60 (>60 ml/min/1.73 sqM) Est GFR (MDRD) Non-Af >60 (>60 ml/min/1.73 sqM) Glucose 600 H* (74-99) mg/dL POC Glucose (mg/dL) 574 H (75-99) mg/dL POC Glu [employer] Coord[employer] ID [facility], [place] Plasma Lactic Acid [place] (0.7-2.0) mmol/L Calcium 10.0 (8.4-10.2) mg/dL Total Bilirubin 0.7 (0.2-1.3) mg/dL AST 40 H (14-36) U/L ALT 22 (9-52) U/L Alkaline Phosphatase 114 (38-126) U/L Total Protein 7.2 (6.3-8.2) g/dL Albumin 4.8 (3.5-5.0) g/dL Amylase 65 (30-110) U/L Lipase 79 (23-300) U/L Urine Color Colorless Urine Appearance Clear (Clear) Urine pH 5.0 (5.0-8.0) Ur Specific [place] 1.025 (1.001-1.035) Urine Protein Negative (Negative) Urine Glucose (UA) 4+ H (Negative) Urine Ketones Negative (Negative) Urine Blood Negative (Negative) Urine Nitrite Negative (Negative) Urine Bilirubin Negative (Negative) Urine Urobilinogen <2.0 (<2.0) mg/dL Ur Leukocyte Esterase Negative (Negative) Acetone, Qual Negative (Negative) 10/13/16 10/13/16 10/13/16 Range/Units 09:31 10:30 10:51 WBC 5.6 (3.8-10.6) k/uL RBC 4.51 (3.80-5.40) m/uL Hgb 14.1 (11.4-16.0) gm/dL Hct 41.6 (34.0-46.0) % MCV 92.4 (80.0-100.0) fL MCH 31.2 (25.0-35.0) pg MCHC 33.8 (31.0-37.0) g/dL RDW 13.0 (11.5-15.5) % Plt Count 163 (150-450) k/uL Neutrophils % 83 % Lymphocytes % 15 % Monocytes % 1 % Eosinophils % 0 % Basophils % 0 % Neutrophils # 4.7 (1.3-7.7) k/uL Lymphocytes # 0.9 L (1.0-4.8) k/uL Monocytes # 0.1 (0-1.0) k/uL Eosinophils # 0.0 (0-0.7) k/uL Basophils # 0.0 (0-0.2) k/uL Sodium (137-145) mmol/L Potassium (3.5-5.1) mmol/L Chloride (98-107) mmol/L Carbon Dioxide (22-30) mmol/L Anion Gap mmol/L BUN (7-17) mg/dL Creatinine (0.52-1.04) mg/dL Est GFR (MDRD) Af Amer (>60 ml/min/1.73 sqM) Est GFR (MDRD) Non-Af (>60 ml/min/1.73 sqM) Glucose (74-99) mg/dL POC Glucose (mg/dL) 487 H (75-99) mg/dL POC Glu [employer] Coordinator ID McDaid, Mila Plasma Lactic Acid [place] 8.1 H* (0.7-2.0) mmol/L Calcium (8.4-10.2) mg/dL Total Bilirubin (0.2-1.3) mg/dL AST (14-36) U/L ALT (9-52) U/L Alkaline Phosphatase (38-126) U/L Total Protein (6.3-8.2) g/dL Albumin (3.5-5.0) g/dL Amylase (30-110) U/L Lipase (23-300) U/L Urine Color Urine Appearance (Clear) Urine pH (5.0-8.0) Ur Specific [place] (1.001-1.035) Urine Protein (Negative) Urine Glucose (UA) (Negative) Urine Ketones (Negative) Urine Blood (Negative) Urine Nitrite (Negative) Urine Bilirubin (Negative) Urine Urobilinogen (<2.0) mg/dL Ur Leukocyte Esterase (Negative) Acetone, Qual (Negative) 10/13/16 Range/Units 11:47 WBC (3.8-10.6) k/uL RBC (3.80-5.40) m/uL Hgb (11.4-16.0) gm/dL Hct (34.0-46.0) % MCV (80.0-100.0) fL MCH (25.0-35.0) pg MCHC (31.0-37.0) g/dL RDW (11.5-15.5) % Plt Count (150-450) k/uL Neutrophils % % Lymphocytes % % Monocytes % % Eosinophils % % Basophils % % Neutrophils # (1.3-7.7) k/uL Lymphocytes # (1.0-4.8) k/uL Monocytes # (0-1.0) k/uL Eosinophils # (0-0.7) k/uL Basophils # (0-0.2) k/uL Sodium (137-145) mmol/L Potassium (3.5-5.1) mmol/L Chloride (98-107) mmol/L Carbon Dioxide (22-30) mmol/L Anion Gap mmol/L BUN (7-17) mg/dL Creatinine (0.52-1.04) mg/dL Est GFR (MDRD) Af Amer (>60 ml/min/1.73 sqM) Est GFR (MDRD) Non-Af (>60 ml/min/1.73 sqM) Glucose (74-99) mg/dL POC Glucose (mg/dL) 457 H (75-99) mg/dL POC Glu [employer] Coordinator ID Mila Santana Plasma Lactic Acid [place] (0.7-2.0) mmol/L Calcium (8.4-10.2) mg/dL Total Bilirubin (0.2-1.3) mg/dL AST (14-36) U/L ALT (9-52) U/L Alkaline Phosphatase (38-126) U/L Total Protein (6.3-8.2) g/dL Albumin (3.5-5.0) g/dL Amylase (30-110) U/L Lipase (23-300) U/L Urine Color Urine Appearance (Clear) Urine pH (5.0-8.0) Ur Specific [place] (1.001-1.035) Urine Protein (Negative) Urine Glucose (UA) (Negative) Urine Ketones (Negative) Urine Blood (Negative) Urine Nitrite (Negative) Urine Bilirubin (Negative) Urine Urobilinogen (<2.0) mg/dL Ur Leukocyte Esterase (Negative) Acetone, Qual (Negative) Disposition Decision Date: 10/13/16 Decision Time: 11:56 <Becky Rachel - Last Filed: 10/13/16 12:24> <Piyush Castellanos - Last Filed: 10/13/16 12:28> Clinical Impression: Chronic abdominal pain, Chronic pancreatitis, Lactic acidosis, Hyperglycemia Disposition: ADMITTED IP TO THIS [facility] Condition: Stable Referrals: Mike Borges MD [Primary Care Provider] - 1-2 days Addendum entered and electronically signed by Becky Rachel PA-C 10/13/16 12:26: Patient discussed case with Dr. Douglas and as well as Dr. Borges regarding the admission through Dr. Castellanos.
[2016-10-13 09:05] LABS: Glucose,Whole Blood 574 mg/dL (75-99)
[2016-10-13 09:55] LABS: Appearance,Urine Clear (Clear); Bilirubin,Urine Negative (Negative); Glucose,Urine (UA) 4+ (Negative); Ketones,Urine Negative (Negative); Leukocyte Esterase,Urine Negative (Negative); Nitrite,Urine Negative (Negative); Protein,Urine Negative (Negative); Specific Gravity,Urine 1.025 (1.001-1.035); UA Billing (MACRO vs. MICRO) CHEM; Urobilinogen,Urine <2.0 mg/dL (<2.0)
[2016-10-13 09:59] LABS: Basophils % (A) 0 %; CH 31.3; Eosinophils % (A) 0 %; HCT 41.6 % (34.0-46.0); HDW 2.87; HGB 14.1 gm/dL (11.4-16.0); Luc # (Auto) 0.04; Luc % (Auto) 1; Lymphocytes # (A) 0.9 k/uL (1.0-4.8); Lymphocytes % (A) 15 %; MCH 31.2 pg (25.0-35.0); MCHC 33.8 g/dL (31.0-37.0); MCV 92.4 fL (80.0-100.0); Mean Platelet Volume 6.9; Monocytes # (A) 0.1 k/uL (0-1.0); Monocytes % (A) 1 %; Neutrophils # (A) 4.7 k/uL (1.3-7.7); Neutrophils % (A) 83 %; RBC 4.51 m/uL (3.80-5.40); WBC 5.6 k/uL (3.8-10.6); WBC (Perox) 5.56
[2016-10-13 10:03] LABS: ALT 22 U/L (9-52); AST 40 U/L (14-36); Alkaline Phosphatase 114 U/L (38-126); Amylase 65 U/L (30-110); Anion Gap 21 mmol/L; Blood Urea Nitrogen 14 mg/dL (7-17); Carbon Dioxide 17 mmol/L (22-30); Chloride 102 mmol/L (98-107); Non-African American GFR(MDRD) >60 (>60 ml/min/1.73 sqM); Potassium 4.4 mmol/L (3.5-5.1); Sodium 140 mmol/L (137-145); Total Bilirubin 0.7 mg/dL (0.2-1.3); Total Protein 7.2 g/dL (6.3-8.2)
[2016-10-13 10:12] LABS: Glucose 600 mg/dL (74-99)
--- NOTE | 2016-10-13 10:14 | XR ---
EXAMINATION TYPE: XR abdomen 2V DATE OF EXAM ORDERED: 10/13/2016 HISTORY: Pain. COMPARISON: Previous study dated 09/01/2016. FINDINGS: There has been a previous cholecystectomy. The abdominal gas pattern is within normal limits. There is no evidence of obstruction or free air. T here are scattered air-fluid levels. There are stable phleboliths within the pelvis. IMPRESSION: I CANNOT EXCLUDE AN EARLY ILEUS.
[2016-10-13 10:36] LABS: Glucose,Whole Blood 487 mg/dL (75-99)
[2016-10-13] MEDS ORDERED: INSULIN LISPRO (humaLOG) 300 UNIT/3 ML VIAL SQ ONE (10:49)
[2016-10-13 11:50] LABS: Glucose,Whole Blood 457 mg/dL (75-99)
[2016-10-13] MEDS ORDERED: HYDROmorphone 2 MG TAB PO PRN (11:57)
[2016-10-13] MEDS ORDERED: DICYCLOMINE 10 MG CAP PO PRN (11:57)
[2016-10-13] MEDS ORDERED: PROCHLORPERAZINE 10 MG TAB PO PRN (11:57)
[2016-10-13] MEDS ORDERED: SODIUM CHLORIDE 0.9% 1,000 ML IV SCH (12:00)
[2016-10-13] MEDS ORDERED: INSULIN REGULAR 100 UNIT in SODIUM CHLORIDE 0.9% 100 ML IV SCH (12:00)
[2016-10-13] MEDS ORDERED: [UNRECOGNIZED DRUG - OTHER] PO SCH (12:30)
--- NOTE | 2016-10-13 13:23 | P.HPIM ---
History of Present Illness H&P Date: 10/13/16 Chief Complaint: Nonketotoc hyerosmolar hyperglycemia This is a 51-year-old female patient of mine with previous medical history significant for familial dyslipidemia, recurrent pancreatitis and chroni abdominal pain, thought to be due to hypertriglyceridemia, hypertension and hypertensive cardiovascular disease, diabetes mellitus type 2 with recurrent diabetic ketoacidosis as well as episodes of hyperosmolar nonketotic hyperglycemia, hypertensive cardiovascular disease, chronic pain syndrome, gastroparesis, gastroesophageal reflux disease, diabetic polyneuropathy. She presented to [facility] emergency center 8:00 in the morning after 2 hours of increased abdominal pain associated with the nausea and diarrhea patient stated that she started not feeling well yesterday in the evening and she did not take Lantus however she took 33 units of Lantus instead and the she checked her blood glucose level that was quite high greater than 600 since her glucometer goes to 600, so she ended up coming to the ER she was found to have a blood glucose level of greater than 6 and she did receive for a liter of normal saline, and she was started on insulin drip, her ketone levels are negative, however lactic acid was high at 8 subsequently after fluid resuscitation dropped down to 7.1, patient ended up admitted to the hospital for hyperosmolar nonketotic hyperglycemia she was placed on insulin drip along with the rest of her medication she was admitted to the hospital for further evaluation and recommendation. Review of Systems Constitutional: Reports chronic pain, Denies anorexia, Denies chronic headaches , Denies fever, Denies lethargy, Denies malaise, Denies weakness, Denies weight gain, Denies weight loss Eyes: denies blurred vision, denies bulging eye, denies decreased vision, denies diplopia, denies discharge Ears: deny: decreased hearing Ears, nose, mouth and throat: Denies dysphagia, Denies neck fullness/pressure, Denies swelling in throat, Denies sore throat Cardiovascular: Reports high blood pressure, Denies chest pain, Denies decreased exercise tolerance, Denies dyspnea on exertion, Denies paroxysmal nocturnal dyspnea, Denies phlebitis, Denies rapid heart beat, Denies shortness of breath, Denies syncope Respiratory: Denies congestion, Denies cough, Denies cough with sputum, Denies home oxygen, Denies sleep apnea, Denies snoring, Denies wheezing Gastrointestinal: Reports abdominal pain, Reports bloating, Reports change in bowel habits, Reports diarrhea, Reports dyspepsia, Reports heartburn, Reports nausea, Reports vomiting, Denies melena Genitourinary: Denies dysuria, Denies hematuria Musculoskeletal: Denies myalgias Musculoskeletal: absent: ankle pain, ankle stiffness, ankle swelling, elbow pain , elbow stiffness, elbow swelling, foot pain, foot stiffness, foot swelling, hand pain, hand stiffness, hand swelling, hip pain, hip stiffness, hip swelling , knee pain, knee stiffness, knee swelling, shoulder pain, shoulder stiffness, shoulder swelling, wrist pain, wrist stiffness, wrist swelling Integumentary: Denies pruritus, Denies rash Neurological: Denies numbness, Denies weakness Psychiatric: Reports anxiety, Reports depression, Denies sadness/tearfulness, Denies sleep disturbances, Denies suicidal ideation Endocrine: Denies fatigue, Denies weight change Past Medical History Past Medical History: Coronary Artery Disease (CAD), Diabetes Mellitus, GERD/ Reflux, Hyperlipidemia, Hypertension, Syncope Additional Past Medical History / Comment(s): IDDM typeII, recurrent DKA, episodes of hyperosmolar nonketonic hyperglycemia, hypertensive heart disease, chronic pain syndrome, hypertriglyceridemia, chronic pancreatitis, chronic abdominal pain, gastroparesis, severe GERD, diabetic polyneuropathy mostly in hands and alittle in feet bilaterally, infectious colitis. History of Any Multi-Drug Resistant Organisms: None Reported Past Surgical History: Cholecystectomy Additional Past Surgical History / Comment(s): Biliary stent through an ERCP that was performed at [facility] and stent removed 2007, lap jenn, colonoscopy, ERCP. Past Anesthesia/Blood Transfusion Reactions: No Reported Reaction Additional Past Anesthesia/Blood Transfusion Reaction / Comment(s): Pt has never received blood."CLAUSTERPHOBIA" Past Psychological History: Anxiety, Depression, Panic Disorder, PTSD Additional Psychological History / Comment(s): Pt lives in her home with her gadiel , son-in-law and 2 grandchildren. She is independent. She currently is on disability. She drives a car a limited amount-family drive her places at times. She has anxiety and occasional anxiety-panic attacks. She sees Dr. Fink at [facility] and is councelled by Chad Samuels. She states her current psych med rigeme is working well. Her gadiel and dad help her out. She has a rescue dog. Smoking Status: Never smoker Past Alcohol Use History: None Reported Past Drug Use History: None Reported - Past Family History Father Family Medical History: No Reported History Additional Family Medical History / Comment(s): Father had severe anxiety and was hospitalized for this at times. Mother Family Medical History: Cancer Additional Family Medical History / Comment(s): Mother of metastatic breast CA at the age of 42yrs. Medications and Allergies Home Medications Medication Instructions Recorded Confirmed Type Lisinopril [Zestril] 20 mg PO DAILY 09/09/13 10/13/16 History HYDROmorphone [Dilaudid] 2 mg PO Q8H PRN 09/17/14 10/13/16 History Multivitamins, Thera [Multivitamin 1 tab PO DAILY 09/17/14 10/13/16 History (formulary)] Atenolol [Tenormin] 100 mg PO DAILY 11/19/14 10/13/16 History Calcium Carb-Vit D 500Mg-200Un 1 tab PO BID 11/19/14 10/13/16 History [Oscal 500+D] Mirtazapine [Remeron] 45 mg PO HS 11/19/14 10/13/16 History Rosuvastatin Calcium [Crestor] 40 mg PO HS 11/19/14 10/13/16 History Insulin Aspart [NovoLOG Flexpen] 26 unit SQ AC-BRKFST 10/14/15 10/13/16 History Insulin Aspart [NovoLOG Flexpen] 26 unit SQ AC-LUNCH 10/14/15 10/13/16 History Insulin Aspart [NovoLOG Flexpen] 36 units SQ AC-SUPPER 10/14/15 10/13/16 History Pancreatic Enzymes Otc(Unknown) 1 cap PO AC-TID 10/14/15 10/13/16 History Cetirizine HCl [Zyrtec] 10 mg PO DAILY 02/04/16 10/13/16 History Niacin 1,000 mg PO HS 02/04/16 10/13/16 History clonazePAM [KlonoPIN] 2 mg PO HS 02/04/16 10/13/16 History Insulin Detemir [Levemir] 66 unit SQ HS 07/21/16 10/13/16 History clonazePAM [KlonoPIN] 1 mg PO QAM 04/05/17 06/28/17 History Allergies Allergy/AdvReac Type Severity Reaction Status Date / Time NSAIDS (Non-Steroidal Allergy Rash/Hives Verified 10/13/16 08:56 Anti-Inflamma Physical Exam Vitals: Vital Signs Temp Pulse Resp BP Pulse Ox 10/13/16 12:31 98.8 F 89 16 121/64 96 10/13/16 11:13 98.0 F 84 18 121/62 97 10/13/16 10:38 97.9 F 90 16 120/73 95 10/13/16 08:53 98.2 F 102 H 18 127/91 98 Intake and Output 10/12/16 10/13/16 10/13/16 22:59 06:59 14:59 Other: Weight 65.317 kg Patient Weight 10/14/16 06:59 Weight 65.317 kg - Constitutional General appearance: average body habitus, cooperative, no acute distress - EENT Eyes: anicteric sclerae, EOMI, PERRLA, no ptosis, no scleral icterus, normal appearance ENT: hearing grossly normal, normal oropharynx, no thrush Ears: bilateral: normal - Neck Neck: normal ROM, no rigidity, no stridor, no thyromegaly Carotids: bilateral: upstroke normal Thyroid: bilateral: normal size - Respiratory Respiratory: bilateral: CTA, negative: diminished, dullness, rales, rhonchi, wheezing, prolonged expiration, prolonged inspiration - Cardiovascular Rhythm: regular Heart sounds: normal: S1, S2 Abnormal Heart Sounds: no S3 Gallop, no S4 Gallop, no click - Gastrointestinal General gastrointestinal: normal bowel sounds, soft, no splenomegaly, tenderness , no umbilical hernia Localized gastrointestinal: tender: diffuse, epigastric periumbilical - Integumentary Integumentary: normal, normal turgor - Neurologic Neurologic: CNII-XII intact - Musculoskeletal Musculoskeletal: generalized weakness, strength equal bilaterally - Psychiatric Psychiatric: A&O x's 3, appropriate affect, intact judgment & insight Results CBC & Chem 7: 10/14/16 04:30 10/14/16 04:30 Labs: Abnormal Lab Results - Last 24 Hours (Table) 10/13/16 10/13/16 10/13/16 Range/Units 09:01 09:20 09:31 Lymphocytes # (1.0-4.8) k/uL Carbon Dioxide 17 L (22-30) mmol/L Glucose 600 H* (74-99) mg/dL POC Glucose (mg/dL) 574 H (75-99) mg/dL Plasma Lactic Acid Dawit (0.7-2.0) mmol/L AST 40 H (14-36) U/L Urine Glucose (UA) 4+ H (Negative) 10/13/16 10/13/16 10/13/16 Range/Units 09:31 10:30 10:51 Lymphocytes # 0.9 L (1.0-4.8) k/uL Carbon Dioxide (22-30) mmol/L Glucose (74-99) mg/dL POC Glucose (mg/dL) 487 H (75-99) mg/dL Plasma Lactic Acid Dawit 8.1 H* (0.7-2.0) mmol/L AST (14-36) U/L Urine Glucose (UA) (Negative) 10/13/16 Range/Units 11:47 Lymphocytes # (1.0-4.8) k/uL Carbon Dioxide (22-30) mmol/L Glucose (74-99) mg/dL POC Glucose (mg/dL) 457 H (75-99) mg/dL Plasma Lactic Acid Dawit (0.7-2.0) mmol/L AST (14-36) U/L Urine Glucose (UA) (Negative) Thrombosis Risk Factor Assmnt - DVT/VTE Prophylaxis DVT/VTE Prophylaxis: Pharmacologic Prophylaxis ordered, Mechanical Prophylaxis ordered - Choose All That Apply Any of the Below Risk Factors Present?: Yes Each Factor Represents 1 point: Age 41-60 years Other Risk Factors: No Other congenital or acquired thrombophilia - If yes, enter type in comment: No Thrombosis Risk Factor Assessment Total Risk Factor Score: 1 Thrombosis Risk Factor Assessment Level: Low Risk Assessment and Plan Plan: 1. Hyperosmolar nonketotic hyperglycemia. IV fluid, insulin drip, monitor the patient was a very closely every hour, and transition the patient to her Levemir once blood sugar with level is in the good range. 2. History of diabetes mellitus type 2, insulin requiring we will transition the patient back to Levemir 66 units at bedtime along with Humalog. 3. Hypertension and hypertensive cardiovascular disease with left ventricular hypertrophy we will continue the patient on atenolol 100 mg orally once every day as well as lisinopril 20 mg orally once every day. 4. Hyperlipidemia continue the patient on Crestor 40 mg orally once every day, fenofibrate 160 mg orally once every day,Niaspan 1000 g orally once every. 5. Diabetic polyneuropathy continue gabapentin 200 mg orally twice every day. 6. Anxiety generalized disorder. Continue Klonopin 2 milligram in the evening and 1 mg in the morning. 7. Depression, recurrent. Continue Zoloft 200 mg orally once every day. 8. Gastroparesis continue Reglan 5 mg before each meal 3 times every day. 9. Chronic pancreatitis continue IV fluid resuscitation as well as current pain management in the form of Dilaudid along with fentanyl patch. 10. GERD continue PPI. 11. DVT. Continue heparin 5000 units subcutaneously every 12 hours. 12. Full code. 13. Admit to inpatient. Estimated length of stay 2 midnights .
[2016-10-13] MEDS: HYDROmorphone 2 MG/ML 1 ML SYRINGE IVP PRN ×4 (13:29→22:58)
[2016-10-13 13:39] LABS: Glucose,Whole Blood 419 mg/dL (75-99)
[2016-10-13] MEDS: METOCLOPRAMIDE 5 MG TAB PO SCH ×3 (13:45→21:17)
[2016-10-13 13:47] LABS: Anion Gap 17 mmol/L; Blood Urea Nitrogen 9 mg/dL (7-17); Carbon Dioxide 15 mmol/L (22-30); Chloride 106 mmol/L (98-107); Non-African American GFR(MDRD) >60 (>60 ml/min/1.73 sqM); Phosphorous 3.7 mg/dL (2.5-4.5); Sodium 138 mmol/L (137-145)
[2016-10-13 13:51] LABS: Glucose 455 mg/dL (74-99)
[2016-10-13] MEDS: INSULIN REGULAR 100 UNIT in SODIUM CHLORIDE 0.9% 100 ML IV SCH (13:52)
[2016-10-13 14:50] LABS: Glucose,Whole Blood 368 mg/dL (75-99)
[2016-10-13] MEDS: ONDANSETRON 4 MG/2 ML VIAL IVP PRN ×2 (15:26→21:36)
[2016-10-13 15:49] LABS: Glucose,Whole Blood 247 mg/dL (75-99)
--- NOTE | 2016-10-13 16:37 | P.CNPUL ---
History of Present Illness Consult date: 10/13/16 Chief complaint: Acute diabetic hyperglycemic crisis History of present illness: This is another hospitalization for this 52-year-old female patient, a primary of Dr. Borges , with known history of coronary artery disease, diabetes mellitus , hypertension, hyperlipidemia, recurrent episodes of diabetic ketoacidosis requiring multiple hospitalizations and admissions, chronic pancreatitis with previous ERCP and biliary stenting, hypertriglyceridemia, anxiety, panic and diabetic gastroparesis and peripheral neuropathy. The patient was last here in the hospital for nausea vomiting and diarrhea and gastrointestinal symptoms and hyperglycemia back in July 2016. She was treated and she was discharged home. She was apparently doing well and around 8:00 this morning she started having increased abdominal pain along with nausea and diarrhea and she was not feeling well. Some of her sickness started yesterday evening he apparently she did not take the full dose of her Levemir insulin and she took half to dose of Levemir insulin. She checked her blood sugar at home and her sugar was quite high above 600. For that reason she brought herself to the ED. In the ED her serum evaluation showed a an eye gap metabolic acidosis. The patient had lactic acidosis with lactic acid level of 8.2. The urine acetone was negative. Urine ketone was negative. The patient was afebrile. No change in mental status. No hypotension. She admits to have diarrhea along with some chronic nausea. No reported chest pain. No shortness of breath. She has been started on IV fluids and the patient is currently receiving 0.9 at 200 mL an hour. The patient is also on an insulin drip at 4 units an hour. Her most recent blood sugar is down to 247. Electrolytes are being monitored every 4 hours. The patient will also have a follow-up lactic acid level checked. She is maintaining good oxygen saturation above 90% on room air. Review of Systems Full review of system was done and all of the positive findings are almost above in history of present illness. Past Medical History Past Medical History: Coronary Artery Disease (CAD), Diabetes Mellitus, GERD/ Reflux, Hyperlipidemia, Hypertension, Syncope Additional Past Medical History / Comment(s): IDDM typeII, recurrent DKA, episodes of hyperosmolar nonketonic hyperglycemia, hypertensive heart disease, chronic pain syndrome, hypertriglyceridemia, chronic pancreatitis, chronic abdominal pain, gastroparesis, severe GERD, diabetic polyneuropathy mostly in hands and alittle in feet bilaterally, infectious colitis. History of Any Multi-Drug Resistant Organisms: None Reported Past Surgical History: Cholecystectomy Additional Past Surgical History / Comment(s): Biliary stent through an ERCP that was performed at [facility] and stent removed 2007, lap jenn, colonoscopy, ERCP. Past Anesthesia/Blood Transfusion Reactions: No Reported Reaction Additional Past Anesthesia/Blood Transfusion Reaction / Comment(s): Pt has never received blood."CLAUSTERPHOBIA" Past Psychological History: Anxiety, Depression, Panic Disorder, PTSD Additional Psychological History / Comment(s): Pt lives in her home with her gadiel , son-in-law and 2 grandchildren. She is independent. She currently is on disability. She drives a car a limited amount-family drive her places at times. She has anxiety and occasional anxiety-panic attacks. She sees Dr. Fink at [facility] and is councelled by Chad Samuels. She states her current psych med rigeme is working well. Her gadiel and dad help her out. She has a rescue dog. Smoking Status: Never smoker Past Alcohol Use History: None Reported Past Drug Use History: None Reported - Past Family History Father Family Medical History: No Reported History Additional Family Medical History / Comment(s): Father had severe anxiety and was hospitalized for this at times. Mother Family Medical History: Cancer Additional Family Medical History / Comment(s): Mother of metastatic breast CA at the age of 42yrs. Medications and Allergies Home Medications Medication Instructions Recorded Confirmed Type Lisinopril [Zestril] 20 mg PO DAILY 09/09/13 10/13/16 History HYDROmorphone [Dilaudid] 2 mg PO Q8H PRN 09/17/14 10/13/16 History Multivitamins, Thera [Multivitamin 1 tab PO DAILY 09/17/14 10/13/16 History (formulary)] Atenolol [Tenormin] 100 mg PO DAILY 11/19/14 10/13/16 History Calcium Carb-Vit D 500Mg-200Un 1 tab PO BID 11/19/14 10/13/16 History [Oscal 500+D] Mirtazapine [Remeron] 45 mg PO HS 11/19/14 10/13/16 History Rosuvastatin Calcium [Crestor] 40 mg PO HS 11/19/14 10/13/16 History Insulin Aspart [NovoLOG Flexpen] 26 unit SQ AC-BRKFST 10/14/15 10/13/16 History Insulin Aspart [NovoLOG Flexpen] 26 unit SQ AC-LUNCH 10/14/15 10/13/16 History Insulin Aspart [NovoLOG Flexpen] 36 units SQ AC-SUPPER 10/14/15 10/13/16 History Pancreatic Enzymes Otc(Unknown) 1 cap PO AC-TID 10/14/15 10/13/16 History Cetirizine HCl [Zyrtec] 10 mg PO DAILY 02/04/16 10/13/16 History Niacin 1,000 mg PO HS 02/04/16 10/13/16 History clonazePAM [KlonoPIN] 2 mg PO HS 02/04/16 10/13/16 History Insulin Detemir [Levemir] 66 unit SQ HS 07/21/16 10/13/16 History clonazePAM [KlonoPIN] 1 mg PO QAM 07/21/16 10/13/16 History Allergies Allergy/AdvReac Type Severity Reaction Status Date / Time NSAIDS (Non-Steroidal Allergy Rash/Hives Verified 10/13/16 08:56 Anti-Inflamma Physical Exam Vitals: Vital Signs Temp Pulse Resp BP Pulse Ox 10/13/16 16:00 98.4 F 89 23 108/59 96 10/13/16 15:00 88 30 H 117/68 97 10/13/16 14:25 15 10/13/16 14:00 89 15 136/69 96 10/13/16 13:10 88 17 10/13/16 12:31 98.8 F 89 16 121/64 96 10/13/16 11:13 98.0 F 84 18 121/62 97 10/13/16 10:38 97.9 F 90 16 120/73 95 10/13/16 08:53 98.2 F 102 H 18 127/91 98 Intake and Output 10/13/16 10/13/16 10/13/16 06:59 14:59 22:59 Intake Total 9.763 408.215 Output Total 1200 Balance 9.763 -791.785 Intake: IV 400 Sodium Chloride 0.9% 1, 400 000 ml @ 200 mls/hr IV . Q5H [facility] Rx#:[id number] Intake, IV Titration 9.763 8.215 Amount Insulin Regular 100 unit 9.763 8.215 In Sodium Chloride 0.9% 100 ml @ Per Protocol IV .Q0M [facility] Rx#:[id number] Output: Urine 1200 Other: Voiding Method Toilet Toilet # Voids 1 1 Weight 65.317 kg 65.317 kg Patient Weight 10/14/16 06:59 Weight 65.317 kg Head exam was generally normal. There was no scleral icterus or corneal arcus. Mucous membranes were moist.dNeck was supple and without jugular venous distension, thyromegaly, or carotid bruits. Carotids were easily palpable bilaterally. There was no adenopathy.Lungs were clear to auscultation and percussion, and with normal diaphragmatic excursion. No wheezes or rales were noted. Cardiac exam revealed the PMI to be normally situated and sized. The rhythm was regular and no extrasystoles were noted during several minutes of auscultation. The first and second heart sounds were normal and physiologic splitting of the second heart sound was noted. There were no murmurs, rubs, clicks, or gallops.Abdominal exam revealed normal bowel sounds. The abdomen was soft, non-tender, and without masses, organomegaly, or appreciable enlargement of the abdominal aorta.Examination of the extremities revealed easily palpable radial, femoral and pedal pulses. There was no cyanosis, clubbing or edema. Results - Laboratory Findings CBC and BMP: 10/13/16 09:31 10/13/16 13:31 Abnormal lab findings: Abnormal Labs 10/13/16 10/13/16 10/13/16 09:01 09:20 09:31 Lymphocytes # Carbon Dioxide 17 L Glucose 600 H* POC Glucose (mg/dL) 574 H Plasma Lactic Acid Dawit AST 40 H Urine Glucose (UA) 4+ H 10/13/16 10/13/16 10/13/16 09:31 10:30 10:51 Lymphocytes # 0.9 L Carbon Dioxide Glucose POC Glucose (mg/dL) 487 H Plasma Lactic Acid Dawit 8.1 H* AST Urine Glucose (UA) 10/13/16 10/13/16 10/13/16 11:47 13:31 13:36 Lymphocytes # Carbon Dioxide 15 L Glucose 455 H* POC Glucose (mg/dL) 457 H 419 H Plasma Lactic Acid Dawit AST Urine Glucose (UA) 10/13/16 10/13/16 14:48 15:47 Lymphocytes # Carbon Dioxide Glucose POC Glucose (mg/dL) 368 H 247 H Plasma Lactic Acid Dawit AST Urine Glucose (UA) Assessment and Plan Plan: Assessment 1 acute hyperglycemia without significant ketosis. The patient has significant anion gap metabolic acidosis which is essentially lactic acidosis. As such she may be in a hyperosmolar nonketotic state in addition to an underlying lactic acidosis 2 lactic acidosis with a lactic acid level as high as 8.1 with a positive anion gap 3 insulin-dependent diabetes mellitus type 2, with recurrent bouts of DKA in the past and poorly controlled blood sugars 4 chronic pancreatitis, recurrent 5 chronic diabetic gastroparesis with recurrent abdominal pain secondary to above 6 peripheral neuropathy 7 hypertension 8 hypertriglyceridemia 9 chronic pain syndrome 10 coronary artery disease 11 gastric esophageal reflux/GERD 12 generalized anxiety disorder/depression 13 previous history of infectious colitis 14 previous history of insertion abuse stent/ERCP 15 PTSD/anxiety/depression Plan Continued IV fluids and switch this patient to a D5 half-normal saline with blood sugars drops below 200. Continue insulin 40 units an hour. Monitor lactic acid level. Hydrate the patient. Zofran for nausea. Monitor electrodes every 4 hours. Resume outpatient medications. Amylase lipase levels were essentially within normal limits. No signs of septicemia this point. Urinalysis was negative. Pulmonary status is stable. The patient will be placed on subcu heparin for DVT prophylaxis. Add IV Protonix. Dilaudid for pain control. We'll continue to follow.
[2016-10-13] MEDS ORDERED: D5-0.45% NACL WITH KCL 20MEQ/L 1,000 ML IV SCH (17:00)
[2016-10-13 17:04] LABS: Glucose,Whole Blood 252 mg/dL (75-99)
[2016-10-13 18:08] LABS: Glucose,Whole Blood 175 mg/dL (75-99)
[2016-10-13] MEDS: DEXTROSE 5%-0.45% NACL 1,000 ML IV SCH (18:08)
[2016-10-13 18:28] LABS: Anion Gap 12 mmol/L; Blood Urea Nitrogen 7 mg/dL (7-17); Carbon Dioxide 20 mmol/L (22-30); Chloride 108 mmol/L (98-107); Glucose 186 mg/dL (74-99); Non-African American GFR(MDRD) >60 (>60 ml/min/1.73 sqM); Phosphorous 3.4 mg/dL (2.5-4.5); Potassium 3.9 mmol/L (3.5-5.1); Sodium 140 mmol/L (137-145)
[2016-10-13 19:03] LABS: Glucose,Whole Blood 279 mg/dL (75-99)
[2016-10-13 20:00] LABS: Glucose,Whole Blood 302 mg/dL (75-99)
[2016-10-13] MEDS ORDERED: POTASSIUM CHLORIDE ER 20 MEQ TAB.ER PO SCH (20:00)
[2016-10-13 21:08] LABS: Glucose,Whole Blood 202 mg/dL (75-99)
[2016-10-13] MEDS: FAMOTIDINE 20 MG TAB PO SCH (21:17)
[2016-10-13] MEDS: CALCIUM CARB-VIT D 500MG-200UN 1 EACH TAB PO SCH (21:17)
[2016-10-13] MEDS: MIRTAZAPINE 45 MG TABLET PO SCH (21:17)
[2016-10-13] MEDS: FENOFIBRATE 160 MG TAB PO SCH (21:17)
[2016-10-13] MEDS: NIACIN TR 500 MG CAPSULE.ER PO SCH (21:17)
[2016-10-13] MEDS: GABAPENTIN 100 MG CAP PO SCH (21:17)
[2016-10-13] MEDS: ATORVASTATIN 80 MG TAB PO SCH (21:18)
[2016-10-13] MEDS: clonazePAM 1 MG TAB PO SCH (21:36)
[2016-10-13 22:03] LABS: Glucose,Whole Blood 208 mg/dL (75-99)
[2016-10-13 22:55] LABS: Glucose,Whole Blood 226 mg/dL (75-99)
[2016-10-14] MEDS: DEXTROSE 5%-0.45% NACL 1,000 ML IV SCH ×3 (00:17→15:00)
[2016-10-14 00:20] LABS: Glucose,Whole Blood 176 mg/dL (75-99)
[2016-10-14] MEDS ORDERED: NALOXONE 0.4 MG/ML 1 ML VIAL IV PRN (00:57)
[2016-10-14 00:59] LABS: Glucose,Whole Blood 139 mg/dL (75-99)
[2016-10-14 02:06] LABS: Glucose,Whole Blood 167 mg/dL (75-99)
[2016-10-14] MEDS: HYDROmorphone 2 MG/ML 1 ML SYRINGE IVP PRN ×8 (02:10→23:36)
[2016-10-14 03:29] LABS: Glucose,Whole Blood 228 mg/dL (75-99)
[2016-10-14] MEDS: ONDANSETRON 4 MG/2 ML VIAL IVP PRN ×4 (03:35→22:15)
[2016-10-14 04:18] LABS: Glucose,Whole Blood 212 mg/dL (75-99)
[2016-10-14 04:55] LABS: Basophils % (A) 0 %; CH 30.9; CHCM 33.6; Eosinophils # (A) 0.1 k/uL (0-0.7); Eosinophils % (A) 1 %; HCT 37.6 % (34.0-46.0); HDW 2.81; HGB 12.9 gm/dL (11.4-16.0); Luc % (Auto) 1; Lymphocytes # (A) 2.3 k/uL (1.0-4.8); Lymphocytes % (A) 32 %; MCH 31.5 pg (25.0-35.0); MCHC 34.2 g/dL (31.0-37.0); MCV 92.2 fL (80.0-100.0); Mean Platelet Volume 6.6; Monocytes # (A) 0.3 k/uL (0-1.0); Monocytes % (A) 5 %; Neutrophils # (A) 4.3 k/uL (1.3-7.7); Neutrophils % (A) 61 %; RBC 4.08 m/uL (3.80-5.40); RDW 12.8 % (11.5-15.5); WBC 7.1 k/uL (3.8-10.6); WBC (Perox) 7.36
[2016-10-14 05:10] LABS: Glucose,Whole Blood 240 mg/dL (75-99)
[2016-10-14 05:27] LABS: Anion Gap 12 mmol/L; Blood Urea Nitrogen 3 mg/dL (7-17); Calcium 9.2 mg/dL (8.4-10.2); Carbon Dioxide 18 mmol/L (22-30); Chloride 112 mmol/L (98-107); Glucose 208 mg/dL (74-99); Non-African American GFR(MDRD) >60 (>60 ml/min/1.73 sqM); Phosphorous 3.1 mg/dL (2.5-4.5); Sodium 142 mmol/L (137-145)
[2016-10-14 06:13] LABS: Glucose,Whole Blood 180 mg/dL (75-99)
[2016-10-14 06:58] LABS: Glucose,Whole Blood 175 mg/dL (75-99)
[2016-10-14] MEDS: METOCLOPRAMIDE 5 MG TAB PO SCH ×4 (07:45→20:15)
[2016-10-14 08:01] LABS: Glucose,Whole Blood 180 mg/dL (75-99)
[2016-10-14 08:57] LABS: Glucose,Whole Blood 233 mg/dL (75-99)
[2016-10-14] MEDS: CALCIUM CARB-VIT D 500MG-200UN 1 EACH TAB PO SCH ×2 (08:57→20:14)
[2016-10-14] MEDS: ATENOLOL 50 MG TAB PO SCH (08:57)
[2016-10-14] MEDS: clonazePAM 1 MG TAB PO SCH ×2 (08:57→20:14)
[2016-10-14] MEDS: FAMOTIDINE 20 MG TAB PO SCH ×2 (08:57→20:14)
[2016-10-14] MEDS: LORATADINE 10 MG TAB PO SCH (08:58)
[2016-10-14] MEDS: SERTRALINE 100 MG TAB PO SCH (08:58)
[2016-10-14] MEDS: GABAPENTIN 100 MG CAP PO SCH ×2 (08:58→20:14)
[2016-10-14 10:03] LABS: Glucose,Whole Blood 227 mg/dL (75-99)
[2016-10-14 11:03] LABS: Glucose,Whole Blood 223 mg/dL (75-99)
[2016-10-14] MEDS: LISINOPRIL 20 MG TAB PO SCH (11:06)
--- NOTE | 2016-10-14 11:47 | P.PN ---
Subjective This is another hospitalization for this 52-year-old female patient, a primary of Dr. Borges , with known history of coronary artery disease, diabetes mellitus , hypertension, hyperlipidemia, recurrent episodes of diabetic ketoacidosis requiring multiple hospitalizations and admissions, chronic pancreatitis with previous ERCP and biliary stenting, hypertriglyceridemia, anxiety, panic and diabetic gastroparesis and peripheral neuropathy. The patient was last here in the hospital for nausea vomiting and diarrhea and gastrointestinal symptoms and hyperglycemia back in July 2016. She was treated and she was discharged home. She was apparently doing well and around 8:00 this morning she started having increased abdominal pain along with nausea and diarrhea and she was not feeling well. Some of her sickness started yesterday evening he apparently she did not take the full dose of her Levemir insulin and she took half to dose of Levemir insulin. She checked her blood sugar at home and her sugar was quite high above 600. For that reason she brought herself to the ED. In the ED her serum evaluation showed a an eye gap metabolic acidosis. The patient had lactic acidosis with lactic acid level of 8.2. The urine acetone was negative. Urine ketone was negative. The patient was afebrile. No change in mental status. No hypotension. She admits to have diarrhea along with some chronic nausea. No reported chest pain. No shortness of breath. She has been started on IV fluids and the patient is currently receiving 0.9 at 200 mL an hour. The patient is also on an insulin drip at 4 units an hour. Her most recent blood sugar is down to 247. Electrolytes are being monitored every 4 hours. The patient will also have a follow-up lactic acid level checked. She is maintaining good oxygen saturation above 90% on room air. On today's evaluation of 09/12/2016 I'm seeing this patient in follow-up. She is looking better. She is interested and gradually advancing her diet. Her blood sugars under better control. She is currently on insulin drip at 6 units an hour. She is also on D5 half-normal saline at the rate of 150 mL an hour. She is producing adequate amount of urine output. The lactic acidosis improving. The most recent blood sugar is at 223. No nausea. No abdominal pain. No emesis. She has a very sensitive stomach and she wants to gradually advance her diet. She is on clear liquids and she will be advanced to full this noontime and probably Consistent diet with carb for dinner. Objective - Vital Signs Vital signs: Vital Signs Temp 97.8 F 10/14/16 08:00 Pulse 79 10/14/16 11:00 Resp 15 10/14/16 11:00 BP 138/72 10/14/16 11:00 Pulse Ox 97 10/14/16 11:00 Intake & Output 10/13/16 10/14/16 10/14/16 18:59 06:59 18:59 Intake Total 864.864 3421.502 1013.904 Output Total 1600 2500 1025 Balance -772.865 -659.498 -11.096 Weight 65.317 kg 66.7 kg Intake: IV 800 1050 750 D5-0.45% NaCl with KCl 900 20Meq/l 1,000 ml @ 150 mls/hr IV .Q6H40M [facility] Rx# :[id number] Dextrose 5%-0.45% NaCl 1, 150 750 000 ml @ 150 mls/hr IV . Q6H40M [facility] Rx#:[id number] Sodium Chloride 0.9% 1, 800 000 ml @ 200 mls/hr IV . Q5H [facility] Rx#:[id number] Intake, IV Titration 27.135 790.502 13.904 Amount Dextrose 5%-0.45% NaCl 1, 750 000 ml @ 150 mls/hr IV . Q6H40M [facility] Rx#:[id number] Insulin Regular 100 unit 27.135 40.502 13.904 In Sodium Chloride 0.9% 100 ml @ Per Protocol IV .Q0M [facility] Rx#:[id number] Oral 250 Output: Urine 1600 2500 1025 Other: Voiding Method Toilet Toilet Toilet # Voids 1 1 - Exam Head exam was generally normal. There was no scleral icterus or corneal arcus. Mucous membranes were moist.dNeck was supple and without jugular venous distension, thyromegaly, or carotid bruits. Carotids were easily palpable bilaterally. There was no adenopathy.Lungs were clear to auscultation and percussion, and with normal diaphragmatic excursion. No wheezes or rales were noted. Cardiac exam revealed the PMI to be normally situated and sized. The rhythm was regular and no extrasystoles were noted during several minutes of auscultation. The first and second heart sounds were normal and physiologic splitting of the second heart sound was noted. There were no murmurs, rubs, clicks, or gallops.Abdominal exam revealed normal bowel sounds. The abdomen was soft, non-tender, and without masses, organomegaly, or appreciable enlargement of the abdominal aorta.Examination of the extremities revealed easily palpable radial, femoral and pedal pulses. There was no cyanosis, clubbing or edema. - Labs CBC & Chem 7: 10/14/16 04:30 10/14/16 04:30 Labs: Abnormal Lab Results - Last 24 Hours (Table) 10/13/16 10/13/16 10/13/16 Range/Units 09:40 10:51 11:47 Plt Count (150-450) k/uL Chloride (98-107) mmol/L Carbon Dioxide (22-30) mmol/L BUN (7-17) mg/dL Creatinine (0.52-1.04) mg/dL Glucose (74-99) mg/dL POC Glucose (mg/dL) 457 H (75-99) mg/dL Hemoglobin A1c 9.0 H (4.2-6.1) % Plasma Lactic Acid Dawit 8.1 H* (0.7-2.0) mmol/L 10/13/16 10/13/16 10/13/16 Range/Units 13:31 13:36 14:48 Plt Count (150-450) k/uL Chloride (98-107) mmol/L Carbon Dioxide 15 L (22-30) mmol/L BUN (7-17) mg/dL Creatinine (0.52-1.04) mg/dL Glucose 455 H* (74-99) mg/dL POC Glucose (mg/dL) 419 H 368 H (75-99) mg/dL Hemoglobin A1c (4.2-6.1) % Plasma Lactic Acid Dawit (0.7-2.0) mmol/L 10/13/16 10/13/16 10/13/16 Range/Units 15:47 17:02 17:49 Plt Count (150-450) k/uL Chloride 108 H (98-107) mmol/L Carbon Dioxide 20 L (22-30) mmol/L BUN (7-17) mg/dL Creatinine 0.48 L (0.52-1.04) mg/dL Glucose 186 H (74-99) mg/dL POC Glucose (mg/dL) 247 H 252 H (75-99) mg/dL Hemoglobin A1c (4.2-6.1) % Plasma Lactic Acid Dawit (0.7-2.0) mmol/L 10/13/16 10/13/16 10/13/16 Range/Units 17:49 18:05 19:01 Plt Count (150-450) k/uL Chloride (98-107) mmol/L Carbon Dioxide (22-30) mmol/L BUN (7-17) mg/dL Creatinine (0.52-1.04) mg/dL Glucose (74-99) mg/dL POC Glucose (mg/dL) 175 H 279 H (75-99) mg/dL Hemoglobin A1c (4.2-6.1) % Plasma Lactic Acid Dawit 4.3 H* (0.7-2.0) mmol/L 10/13/16 10/13/16 10/13/16 Range/Units 19:57 21:06 22:02 Plt Count (150-450) k/uL Chloride (98-107) mmol/L Carbon Dioxide (22-30) mmol/L BUN (7-17) mg/dL Creatinine (0.52-1.04) mg/dL Glucose (74-99) mg/dL POC Glucose (mg/dL) 302 H 202 H 208 H (75-99) mg/dL Hemoglobin A1c (4.2-6.1) % Plasma Lactic Acid Dawit (0.7-2.0) mmol/L 10/13/16 10/14/16 10/14/16 Range/Units 22:54 00:19 00:58 Plt Count (150-450) k/uL Chloride (98-107) mmol/L Carbon Dioxide (22-30) mmol/L BUN (7-17) mg/dL Creatinine (0.52-1.04) mg/dL Glucose (74-99) mg/dL POC Glucose (mg/dL) 226 H 176 H 139 H (75-99) mg/dL Hemoglobin A1c (4.2-6.1) % Plasma Lactic Acid Dawit (0.7-2.0) mmol/L 10/14/16 10/14/16 10/14/16 Range/Units 02:04 03:27 04:16 Plt Count (150-450) k/uL Chloride (98-107) mmol/L Carbon Dioxide (22-30) mmol/L BUN (7-17) mg/dL Creatinine (0.52-1.04) mg/dL Glucose (74-99) mg/dL POC Glucose (mg/dL) 167 H 228 H 212 H (75-99) mg/dL Hemoglobin A1c (4.2-6.1) % Plasma Lactic Acid Dawit (0.7-2.0) mmol/L 10/14/16 10/14/16 10/14/16 Range/Units 04:30 04:30 04:30 Plt Count 125 L (150-450) k/uL Chloride 112 H (98-107) mmol/L Carbon Dioxide 18 L (22-30) mmol/L BUN 3 L (7-17) mg/dL Creatinine (0.52-1.04) mg/dL Glucose 208 H (74-99) mg/dL POC Glucose (mg/dL) (75-99) mg/dL Hemoglobin A1c (4.2-6.1) % Plasma Lactic Acid Dawit 4.3 H* (0.7-2.0) mmol/L 10/14/16 10/14/16 10/14/16 Range/Units 05:08 06:11 06:57 Plt Count (150-450) k/uL Chloride (98-107) mmol/L Carbon Dioxide (22-30) mmol/L BUN (7-17) mg/dL Creatinine (0.52-1.04) mg/dL Glucose (74-99) mg/dL POC Glucose (mg/dL) 240 H 180 H 175 H (75-99) mg/dL Hemoglobin A1c (4.2-6.1) % Plasma Lactic Acid Dawit (0.7-2.0) mmol/L 10/14/16 10/14/16 10/14/16 Range/Units 08:00 08:56 10:01 Plt Count (150-450) k/uL Chloride (98-107) mmol/L Carbon Dioxide (22-30) mmol/L BUN (7-17) mg/dL Creatinine (0.52-1.04) mg/dL Glucose (74-99) mg/dL POC Glucose (mg/dL) 180 H 233 H 227 H (75-99) mg/dL Hemoglobin A1c (4.2-6.1) % Plasma Lactic Acid Dawit (0.7-2.0) mmol/L 10/14/16 Range/Units 11:02 Plt Count (150-450) k/uL Chloride (98-107) mmol/L Carbon Dioxide (22-30) mmol/L BUN (7-17) mg/dL Creatinine (0.52-1.04) mg/dL Glucose (74-99) mg/dL POC Glucose (mg/dL) 223 H (75-99) mg/dL Hemoglobin A1c (4.2-6.1) % Plasma Lactic Acid Dawit (0.7-2.0) mmol/L Microbiology - Last 24 Hours (Table) 10/13/16 09:20 Urine Culture - Preliminary Urine,Voided Assessment and Plan Plan: Assessment 1 acute hyperglycemia without significant ketosis. The patient has significant anion gap metabolic acidosis which is essentially lactic acidosis. As such she may be in a hyperosmolar nonketotic state in addition to an underlying lactic acidosis 2 lactic acidosis with a lactic acid level as high as 8.1, improving and the lactic acid level is down to 4.3 3 insulin-dependent diabetes mellitus type 2, with recurrent bouts of DKA in the past and poorly controlled blood sugars 4 chronic pancreatitis, recurrent 5 chronic diabetic gastroparesis with recurrent abdominal pain secondary to above 6 peripheral neuropathy 7 hypertension 8 hypertriglyceridemia 9 chronic pain syndrome 10 coronary artery disease 11 gastric esophageal reflux/GERD 12 generalized anxiety disorder/depression 13 previous history of infectious colitis 14 previous history of insertion abuse stent/ERCP 15 PTSD/anxiety/depression Plan We'll cut down the IV fluids to 75 mL an hour of D5 half-normal saline. We'll cut down the insulin drip to maintain a blood sugar in the range of below 200. We will advance her diet. She'll be having full liquids for lunch and and a carb consistent diet for dinner. Lactic acid levels are improving. We'll continue to follow.
[2016-10-14 12:05] LABS: Glucose,Whole Blood 194 mg/dL (75-99)
[2016-10-14] MEDS: INSULIN REGULAR 100 UNIT in SODIUM CHLORIDE 0.9% 100 ML IV SCH (12:09)
[2016-10-14] MEDS: MULTIVITAMINS, THERA 1 EACH TAB PO SCH (12:09)
[2016-10-14 13:11] LABS: Glucose,Whole Blood 115 mg/dL (75-99)
[2016-10-14 13:59] LABS: Glucose,Whole Blood 176 mg/dL (75-99)
[2016-10-14 15:05] LABS: Glucose,Whole Blood 185 mg/dL (75-99)
--- NOTE | 2016-10-14 15:43 | P.PN ---
Subjective This is a 51-year-old female patient of [facility] with previous medical history significant for familial dyslipidemia, recurrent pancreatitis and chroni abdominal pain, thought to be due to hypertriglyceridemia, hypertension and hypertensive cardiovascular disease, diabetes mellitus type 2 with recurrent diabetic ketoacidosis as well as episodes of hyperosmolar nonketotic hyperglycemia, hypertensive cardiovascular disease, chronic pain syndrome, gastroparesis, gastroesophageal reflux disease, diabetic polyneuropathy. She presented to [facility] emergency center 8:00 in the morning after 2 hours of increased abdominal pain associated with the nausea and diarrhea patient stated that she started not feeling well yesterday in the evening and she did not take Lantus however she took 33 units of Lantus instead and the she checked her blood glucose level that was quite high greater than 600 since her glucometer goes to 600, so she ended up coming to the ER she was found to have a blood glucose level of greater than 6 and she did receive for a liter of normal saline, and she was started on insulin drip, her ketone levels are negative, however lactic acid was high at 8 subsequently after fluid resuscitation dropped down to 7.1, patient ended up admitted to the hospital for hyperosmolar nonketotic hyperglycemia she was placed on insulin drip along with the rest of her medication she was admitted to the hospital for further evaluation and recommendation. 10/14: Blood sugars are running 175-233. She is still on D5 half normal saline IV fluids and insulin drip. She has been seen by Dr. Leandra Larios in for intensive care management. Lactic acid is currently 4.3. We will plan to start her home Levemir tonight and stop the insulin drip. She is planning for a full liquid diet for lunch and continue to advance. Dr. Berry is ordering a CT of the abdomen Objective - Vital Signs Vital signs: Vital Signs Temp 97.8 F 10/14/16 08:00 Pulse 65 10/14/16 09:00 Resp 16 10/14/16 09:00 BP 131/85 10/14/16 09:00 Pulse Ox 97 10/14/16 09:00 Intake & Output 10/13/16 10/14/16 10/14/16 18:59 06:59 18:59 Intake Total 938.310 3181.502 703.299 Output Total 1600 2500 500 Balance -772.865 -659.498 203.299 Weight 65.317 kg 66.7 kg Intake: IV 800 1050 450 D5-0.45% NaCl with KCl 900 20Meq/l 1,000 ml @ 150 mls/hr IV .Q6H40M [facility] Rx# :[id number] Dextrose 5%-0.45% NaCl 1, 150 450 000 ml @ 150 mls/hr IV . Q6H40M [facility] Rx#:[id number] Sodium Chloride 0.9% 1, 800 000 ml @ 200 mls/hr IV . Q5H [facility] Rx#:[id number] Intake, IV Titration 27.135 790.502 3.299 Amount Dextrose 5%-0.45% NaCl 1, 750 000 ml @ 150 mls/hr IV . Q6H40M [facility] Rx#:[id number] Insulin Regular 100 unit 27.135 40.502 3.299 In Sodium Chloride 0.9% 100 ml @ Per Protocol IV .Q0M [facility] Rx#:[id number] Oral 250 Output: Urine 1600 2500 500 Other: Voiding Method Toilet Toilet Toilet # Voids 1 1 - Exam General appearance: average body habitus, cooperative, no acute distress - EENT Eyes: anicteric sclerae, EOMI, PERRLA, no ptosis, no scleral icterus, normal appearance ENT: hearing grossly normal, normal oropharynx, no thrush Ears: bilateral: normal - Neck Neck: normal ROM, no rigidity, no stridor, no thyromegaly Carotids: bilateral: upstroke normal Thyroid: bilateral: normal size - Respiratory Respiratory: bilateral: CTA, negative: diminished, dullness, rales, rhonchi, wheezing, prolonged expiration, prolonged inspiration - Cardiovascular Rhythm: regular Heart sounds: normal: S1, S2 Abnormal Heart Sounds: no S3 Gallop, no S4 Gallop, no click - Gastrointestinal General gastrointestinal: normal bowel sounds, soft, no splenomegaly, tenderness , no umbilical hernia Localized gastrointestinal: tender: diffuse, epigastric periumbilical - Integumentary Integumentary: normal, normal turgor - Neurologic Neurologic: CNII-XII intact - Musculoskeletal Musculoskeletal: generalized weakness, strength equal bilaterally - Psychiatric Psychiatric: A&O x's 3, appropriate affect, intact judgment & insight - Labs CBC & Chem 7: 10/14/16 04:30 10/14/16 04:30 Labs: Abnormal Lab Results - Last 24 Hours (Table) 10/13/16 10/13/16 10/13/16 Range/Units 09:31 09:31 09:40 Plt Count (150-450) k/uL Lymphocytes # 0.9 L (1.0-4.8) k/uL Chloride (98-107) mmol/L Carbon Dioxide 17 L (22-30) mmol/L BUN (7-17) mg/dL Creatinine (0.52-1.04) mg/dL Glucose 600 H* (74-99) mg/dL POC Glucose (mg/dL) (75-99) mg/dL Hemoglobin A1c 9.0 H (4.2-6.1) % Plasma Lactic Acid Dawit (0.7-2.0) mmol/L AST 40 H (14-36) U/L 10/13/16 10/13/16 10/13/16 Range/Units 10:30 10:51 11:47 Plt Count (150-450) k/uL Lymphocytes # (1.0-4.8) k/uL Chloride (98-107) mmol/L Carbon Dioxide (22-30) mmol/L BUN (7-17) mg/dL Creatinine (0.52-1.04) mg/dL Glucose (74-99) mg/dL POC Glucose (mg/dL) 487 H 457 H (75-99) mg/dL Hemoglobin A1c (4.2-6.1) % Plasma Lactic Acid Dawit 8.1 H* (0.7-2.0) mmol/L AST (14-36) U/L 10/13/16 10/13/16 10/13/16 Range/Units 13:31 13:36 14:48 Plt Count (150-450) k/uL Lymphocytes # (1.0-4.8) k/uL Chloride (98-107) mmol/L Carbon Dioxide 15 L (22-30) mmol/L BUN (7-17) mg/dL Creatinine (0.52-1.04) mg/dL Glucose 455 H* (74-99) mg/dL POC Glucose (mg/dL) 419 H 368 H (75-99) mg/dL Hemoglobin A1c (4.2-6.1) % Plasma Lactic Acid Dawit (0.7-2.0) mmol/L AST (14-36) U/L 10/13/16 10/13/16 10/13/16 Range/Units 15:47 17:02 17:49 Plt Count (150-450) k/uL Lymphocytes # (1.0-4.8) k/uL Chloride 108 H (98-107) mmol/L Carbon Dioxide 20 L (22-30) mmol/L BUN (7-17) mg/dL Creatinine 0.48 L (0.52-1.04) mg/dL Glucose 186 H (74-99) mg/dL POC Glucose (mg/dL) 247 H 252 H (75-99) mg/dL Hemoglobin A1c (4.2-6.1) % Plasma Lactic Acid Dawit (0.7-2.0) mmol/L AST (14-36) U/L 10/13/16 10/13/16 10/13/16 Range/Units 17:49 18:05 19:01 Plt Count (150-450) k/uL Lymphocytes # (1.0-4.8) k/uL Chloride (98-107) mmol/L Carbon Dioxide (22-30) mmol/L BUN (7-17) mg/dL Creatinine (0.52-1.04) mg/dL Glucose (74-99) mg/dL POC Glucose (mg/dL) 175 H 279 H (75-99) mg/dL Hemoglobin A1c (4.2-6.1) % Plasma Lactic Acid Dawit 4.3 H* (0.7-2.0) mmol/L AST (14-36) U/L 10/13/16 10/13/16 10/13/16 Range/Units 19:57 21:06 22:02 Plt Count (150-450) k/uL Lymphocytes # (1.0-4.8) k/uL Chloride (98-107) mmol/L Carbon Dioxide (22-30) mmol/L BUN (7-17) mg/dL Creatinine (0.52-1.04) mg/dL Glucose (74-99) mg/dL POC Glucose (mg/dL) 302 H 202 H 208 H (75-99) mg/dL Hemoglobin A1c (4.2-6.1) % Plasma Lactic Acid Dawit (0.7-2.0) mmol/L AST (14-36) U/L 10/13/16 10/14/16 10/14/16 Range/Units 22:54 00:19 00:58 Plt Count (150-450) k/uL Lymphocytes # (1.0-4.8) k/uL Chloride (98-107) mmol/L Carbon Dioxide (22-30) mmol/L BUN (7-17) mg/dL Creatinine (0.52-1.04) mg/dL Glucose (74-99) mg/dL POC Glucose (mg/dL) 226 H 176 H 139 H (75-99) mg/dL Hemoglobin A1c (4.2-6.1) % Plasma Lactic Acid Dawit (0.7-2.0) mmol/L AST (14-36) U/L 10/14/16 10/14/16 10/14/16 Range/Units 02:04 03:27 04:16 Plt Count (150-450) k/uL Lymphocytes # (1.0-4.8) k/uL Chloride (98-107) mmol/L Carbon Dioxide (22-30) mmol/L BUN (7-17) mg/dL Creatinine (0.52-1.04) mg/dL Glucose (74-99) mg/dL POC Glucose (mg/dL) 167 H 228 H 212 H (75-99) mg/dL Hemoglobin A1c (4.2-6.1) % Plasma Lactic Acid Dawit (0.7-2.0) mmol/L AST (14-36) U/L 10/14/16 10/14/16 10/14/16 Range/Units 04:30 04:30 04:30 Plt Count 125 L (150-450) k/uL Lymphocytes # (1.0-4.8) k/uL Chloride 112 H (98-107) mmol/L Carbon Dioxide 18 L (22-30) mmol/L BUN 3 L (7-17) mg/dL Creatinine (0.52-1.04) mg/dL Glucose 208 H (74-99) mg/dL POC Glucose (mg/dL) (75-99) mg/dL Hemoglobin A1c (4.2-6.1) % Plasma Lactic Acid Dawit 4.3 H* (0.7-2.0) mmol/L AST (14-36) U/L 10/14/16 10/14/16 10/14/16 Range/Units 05:08 06:11 06:57 Plt Count (150-450) k/uL Lymphocytes # (1.0-4.8) k/uL Chloride (98-107) mmol/L Carbon Dioxide (22-30) mmol/L BUN (7-17) mg/dL Creatinine (0.52-1.04) mg/dL Glucose (74-99) mg/dL POC Glucose (mg/dL) 240 H 180 H 175 H (75-99) mg/dL Hemoglobin A1c (4.2-6.1) % Plasma Lactic Acid Dawit (0.7-2.0) mmol/L AST (14-36) U/L 10/14/16 10/14/16 Range/Units 08:00 08:56 Plt Count (150-450) k/uL Lymphocytes # (1.0-4.8) k/uL Chloride (98-107) mmol/L Carbon Dioxide (22-30) mmol/L BUN (7-17) mg/dL Creatinine (0.52-1.04) mg/dL Glucose (74-99) mg/dL POC Glucose (mg/dL) 180 H 233 H (75-99) mg/dL Hemoglobin A1c (4.2-6.1) % Plasma Lactic Acid Dawit (0.7-2.0) mmol/L AST (14-36) U/L Microbiology - Last 24 Hours (Table) 10/13/16 09:20 Urine Culture - Preliminary Urine,Voided Assessment and Plan Plan: 1. Hyperosmolar nonketotic hyperglycemia. IV fluid, insulin drip, monitor the patient was a very closely every hour, and transition the patient to her Levemir once blood sugar with level is in the good range. 2. History of diabetes mellitus type 2, insulin requiring we will transition the patient back to Levemir 66 units at bedtime along with Humalog. 3. Hypertension and hypertensive cardiovascular disease with left ventricular hypertrophy we will continue the patient on atenolol 100 mg orally once every day as well as lisinopril 20 mg orally once every day. 4. Hyperlipidemia continue the patient on Crestor 40 mg orally once every day, fenofibrate 160 mg orally once every day,Niaspan 1000 g orally once every. 5. Diabetic polyneuropathy continue gabapentin 200 mg orally twice every day. 6. Anxiety generalized disorder. Continue Klonopin 2 milligram in the evening and 1 mg in the morning. 7. Depression, recurrent. Continue Zoloft 200 mg orally once every day. 8. Gastroparesis continue Reglan 5 mg before each meal 3 times every day. 9. Chronic pancreatitis continue IV fluid resuscitation as well as current pain management in the form of Dilaudid along with fentanyl patch. 10. GERD continue PPI. 11. DVT. Continue heparin 5000 units subcutaneously every 12 hours. 12. Full code. Discharge plan: Return home Impression and plan of care have been directed as dictated by the signing physician. Amanda Kumar nurse practitioner acting as scribe for signing physician.
[2016-10-14 16:13] LABS: Glucose,Whole Blood 149 mg/dL (75-99)
[2016-10-14 16:59] LABS: Glucose,Whole Blood 122 mg/dL (75-99)
[2016-10-14 18:07] LABS: Glucose,Whole Blood 134 mg/dL (75-99)
[2016-10-14 18:48] LABS: Glucose,Whole Blood 158 mg/dL (75-99)
[2016-10-14] MEDS ORDERED: RX INFO: IV CONTRAST WAS GIVEN 1 EACH MISC MISCELLANE PRN (19:52)
[2016-10-14 20:05] LABS: Glucose,Whole Blood 213 mg/dL (75-99)
[2016-10-14] MEDS: MIRTAZAPINE 45 MG TABLET PO SCH (20:14)
[2016-10-14] MEDS: FENOFIBRATE 160 MG TAB PO SCH (20:14)
[2016-10-14] MEDS: ATORVASTATIN 80 MG TAB PO SCH (20:14)
[2016-10-14] MEDS: NIACIN TR 500 MG CAPSULE.ER PO SCH (20:15)
[2016-10-14] MEDS: INSULIN DETEMIR 100 UNIT/ML 10 ML VIAL SQ SCH (21:09)
[2016-10-14 21:11] LABS: Glucose,Whole Blood 229 mg/dL (75-99)
[2016-10-15 04:51] LABS: Basophils % (A) 1 %; CH 30.8; CHCM 34.4; Eosinophils # (A) 0.1 k/uL (0-0.7); Eosinophils % (A) 2 %; HCT 37.1 % (34.0-46.0); HDW 2.89; HGB 12.9 gm/dL (11.4-16.0); Luc # (Auto) 0.13; Luc % (Auto) 2; Lymphocytes # (A) 3.3 k/uL (1.0-4.8); Lymphocytes % (A) 51 %; MCH 31.2 pg (25.0-35.0); MCHC 34.7 g/dL (31.0-37.0); MCV 89.9 fL (80.0-100.0); Mean Platelet Volume 6.9; Monocytes # (A) 0.3 k/uL (0-1.0); Monocytes % (A) 5 %; Neutrophils # (A) 2.6 k/uL (1.3-7.7); Neutrophils % (A) 40 %; RBC 4.12 m/uL (3.80-5.40); RDW 12.8 % (11.5-15.5); WBC 6.5 k/uL (3.8-10.6); WBC (Perox) 6.84
[2016-10-15 04:57] LABS: Anion Gap 10 mmol/L; Blood Urea Nitrogen 6 mg/dL (7-17); Calcium 9.7 mg/dL (8.4-10.2); Carbon Dioxide 22 mmol/L (22-30); Chloride 106 mmol/L (98-107); Glucose 184 mg/dL (74-99); Magnesium 1.6 mg/dL (1.6-2.3); Non-African American GFR(MDRD) >60 (>60 ml/min/1.73 sqM); Phosphorous 3.9 mg/dL (2.5-4.5); Sodium 138 mmol/L (137-145)
[2016-10-15] MEDS ORDERED: Magnesium Replacement Protocol 1 EACH MISC MISCELLANE PRN (05:06)
[2016-10-15] MEDS: MAGNESIUM SULFATE-D5W PMX 1 GM in DEXTROSE/WATER 1 100ML.BAG IVPB SCH ×2 (05:52→06:49)
[2016-10-15] MEDS: DEXTROSE 5%-0.45% NACL 1,000 ML IV SCH ×2 (05:52→14:10)
[2016-10-15 07:30] LABS: Glucose,Whole Blood 194 mg/dL (75-99)
[2016-10-15] MEDS: HYDROmorphone 2 MG/ML 1 ML SYRINGE IVP PRN ×6 (07:39→23:37)
[2016-10-15] MEDS: INSULIN LISPRO (humaLOG) 300 UNIT/3 ML VIAL SQ SCH ×2 (07:43→12:36)
[2016-10-15] MEDS: METOCLOPRAMIDE 5 MG TAB PO SCH ×4 (07:43→20:21)
[2016-10-15] MEDS: ONDANSETRON 4 MG/2 ML VIAL IVP PRN ×3 (07:56→20:29)
[2016-10-15] MEDS: FAMOTIDINE 20 MG TAB PO SCH ×2 (08:27→20:20)
[2016-10-15] MEDS: SERTRALINE 100 MG TAB PO SCH (08:27)
[2016-10-15] MEDS: CALCIUM CARB-VIT D 500MG-200UN 1 EACH TAB PO SCH ×2 (08:27→20:20)
[2016-10-15] MEDS: GABAPENTIN 100 MG CAP PO SCH ×2 (08:27→20:21)
[2016-10-15] MEDS: LORATADINE 10 MG TAB PO SCH (08:27)
[2016-10-15] MEDS: clonazePAM 1 MG TAB PO SCH ×2 (08:27→20:27)
[2016-10-15 09:38] VITALS: BMI 25.9
[2016-10-15] MEDS: ATENOLOL 50 MG TAB PO SCH (09:47)
[2016-10-15] MEDS: MULTIVITAMINS, THERA 1 EACH TAB PO SCH (10:55)
--- NOTE | 2016-10-15 10:58 | CT ---
EXAMINATION TYPE: CT abdomen w con DATE OF EXAM: 10/15/2016 COMPARISON: NONE INDICATION: Chronic pancreatitis DLP: 385.1 mGycm, Automated exposure control for dose reduction was used. CONTRAST: 100 mL of Omnipaque 300. Study performed without Oral Contrast TECHNIQUE: Axial images were obtained from above the diaphragm to the pubic rami in the axial plane a t 5 mm thick sections. Reconstructed images are reviewed on the computer in the coronal plane. FINDINGS: Limited CT sections are obtained the lung bases. Some minimal infiltrate is along the periphery of t he right midlung lower lobe. Minimal pneumonitis change within the periphery of the left lower lobe.. CT ABDOMEN: Liver: Normal Spleen: Normal Pancreas: Normal. No suspicious pancreas calcifications are identified. Adrenal glands: The adrenal glands are normal. Gallbladder: Surgically absent Kidneys: No masses are evident. No hydronephrosis is present. No cysts are present. Delayed images were obtained through the kidneys, which remain unremarkable. Aorta: Vascular calcification is within the aorta. Inferior vena cava: Normal. CT PELVIS upper portion: Loops of bowel within the abdomen and pelvis are normal. There are loops of bowel which are incom pletely distended or lack oral contrast limiting their evaluation. Appendix: Normal as visualized. IMPRESSIONS: 1. No acute abdominal process. 2. Minimal pneumonitis changes within the lung bases.
--- NOTE | 2016-10-15 11:43 | P.PN ---
Subjective This is another hospitalization for this 52-year-old female patient, a primary of Dr. Borges , with known history of coronary artery disease, diabetes mellitus , hypertension, hyperlipidemia, recurrent episodes of diabetic ketoacidosis requiring multiple hospitalizations and admissions, chronic pancreatitis with previous ERCP and biliary stenting, hypertriglyceridemia, anxiety, panic and diabetic gastroparesis and peripheral neuropathy. The patient was last here in the hospital for nausea vomiting and diarrhea and gastrointestinal symptoms and hyperglycemia back in July 2016. She was treated and she was discharged home. She was apparently doing well and around 8:00 this morning she started having increased abdominal pain along with nausea and diarrhea and she was not feeling well. Some of her sickness started yesterday evening he apparently she did not take the full dose of her Levemir insulin and she took half to dose of Levemir insulin. She checked her blood sugar at home and her sugar was quite high above 600. For that reason she brought herself to the ED. In the ED her serum evaluation showed a an eye gap metabolic acidosis. The patient had lactic acidosis with lactic acid level of 8.2. The urine acetone was negative. Urine ketone was negative. The patient was afebrile. No change in mental status. No hypotension. She admits to have diarrhea along with some chronic nausea. No reported chest pain. No shortness of breath. She has been started on IV fluids and the patient is currently receiving 0.9 at 200 mL an hour. The patient is also on an insulin drip at 4 units an hour. Her most recent blood sugar is down to 247. Electrolytes are being monitored every 4 hours. The patient will also have a follow-up lactic acid level checked. She is maintaining good oxygen saturation above 90% on room air. On today's evaluation of 01/14/2017 I'm seeing this patient in follow-up. She is looking better. She is interested and gradually advancing her diet. Her blood sugars under better control. She is currently on insulin drip at 6 units an hour. She is also on D5 half-normal saline at the rate of 150 mL an hour. She is producing adequate amount of urine output. The lactic acidosis improving. The most recent blood sugar is at 223. No nausea. No abdominal pain. No emesis. She has a very sensitive stomach and she wants to gradually advance her diet. She is on clear liquids and she will be advanced to full this noontime and probably Consistent diet with carb for dinner. On today's evaluation of 10/15/2016, the patient is doing well. Note that the patient got switched to long-acting insulin. The patient was given Levemir last night the nitroglycerin drip was discontinued. Her blood sugars remain stable with levels of less than 200. Her lactic acidosis recovered and the patient's lactic acid level is down to 2.2. A CAT scan of the abdomen will be done, with CTA of the mesenteric arteries looking for any evidence of mesenteric ischemia and attributing to her severe lactic acidosis. Note that the patient has been hospitalized on several occasions for lactic acidosis and with resuscitation she would typically improved. No significant abdominal pain. That has been advanced to soft, diabetic, carb consistent. Outpatient medication been ordered resume. Objective - Vital Signs Vital signs: Vital Signs Temp 97.2 F L 10/15/16 10:30 Pulse 72 10/15/16 10:30 Resp 18 10/15/16 10:30 BP 109/65 10/15/16 10:30 Pulse Ox 95 10/15/16 10:30 Intake & Output 10/14/16 10/15/16 10/15/16 18:59 06:59 18:59 Intake Total 2209.925 1077.139 176 Output Total 1927 750 500 Balance 282.925 327.139 -324 Weight 68.4 kg 76 kg Intake: IV 1425 825 176 Dextrose 5%-0.45% NaCl 1, 900 000 ml @ 150 mls/hr IV . Q6H40M ZACK Rx#:[id number] Dextrose 5%-0.45% NaCl 1, 525 825 76 000 ml @ 75 mls/hr IV . [id number] ZACK Rx#:[id number] Magnesium Sulfate-D5w Pmx 100 1 gm In Dextrose/Water 1 100ml.bag @ 100 mls/hr IVPB Q1H ZACK Rx#: [id number] Intake, IV Titration 34.925 2.139 Amount Insulin Regular 100 unit 34.925 2.139 In Sodium Chloride 0.9% 100 ml @ Per Protocol IV .Q0M ZACK Rx#:[id number] Oral 750 250 Output: Urine 1925 750 500 Urine/Stool Mix 2 Other: Voiding Method Toilet Toilet Toilet # Voids 1 # Bowel Movements 1 - Exam Head exam was generally normal. There was no scleral icterus or corneal arcus. Mucous membranes were moist.dNeck was supple and without jugular venous distension, thyromegaly, or carotid bruits. Carotids were easily palpable bilaterally. There was no adenopathy.Lungs were clear to auscultation and percussion, and with normal diaphragmatic excursion. No wheezes or rales were noted. Cardiac exam revealed the PMI to be normally situated and sized. The rhythm was regular and no extrasystoles were noted during several minutes of auscultation. The first and second heart sounds were normal and physiologic splitting of the second heart sound was noted. There were no murmurs, rubs, clicks, or gallops.Abdominal exam revealed normal bowel sounds. The abdomen was soft, non-tender, and without masses, organomegaly, or appreciable enlargement of the abdominal aorta.Examination of the extremities revealed easily palpable radial, femoral and pedal pulses. There was no cyanosis, clubbing or edema. - Labs CBC & Chem 7: 10/15/16 04:22 10/15/16 04:22 Labs: Abnormal Lab Results - Last 24 Hours (Table) 10/14/16 10/14/16 10/14/16 Range/Units 12:03 13:09 13:57 Plt Count (150-450) k/uL BUN (7-17) mg/dL Glucose (74-99) mg/dL POC Glucose (mg/dL) 194 H 115 H 176 H (75-99) mg/dL Plasma Lactic Acid Dawit (0.7-2.0) mmol/L 10/14/16 10/14/16 10/14/16 Range/Units 15:04 16:11 16:57 Plt Count (150-450) k/uL BUN (7-17) mg/dL Glucose (74-99) mg/dL POC Glucose (mg/dL) 185 H 149 H 122 H (75-99) mg/dL Plasma Lactic Acid Dawit (0.7-2.0) mmol/L 10/14/16 10/14/16 10/14/16 Range/Units 18:06 18:46 20:04 Plt Count (150-450) k/uL BUN (7-17) mg/dL Glucose (74-99) mg/dL POC Glucose (mg/dL) 134 H 158 H 213 H (75-99) mg/dL Plasma Lactic Acid Dawit (0.7-2.0) mmol/L 10/14/16 10/15/16 10/15/16 Range/Units 21:10 04:22 04:22 Plt Count 113 L (150-450) k/uL BUN 6 L (7-17) mg/dL Glucose 184 H (74-99) mg/dL POC Glucose (mg/dL) 229 H (75-99) mg/dL Plasma Lactic Acid Dawit (0.7-2.0) mmol/L 10/15/16 10/15/16 Range/Units 04:22 07:29 Plt Count (150-450) k/uL BUN (7-17) mg/dL Glucose (74-99) mg/dL POC Glucose (mg/dL) 194 H (75-99) mg/dL Plasma Lactic Acid Dawit 2.2 H* (0.7-2.0) mmol/L Microbiology - Last 24 Hours (Table) 10/13/16 09:20 Urine Culture - Final Urine,Voided Assessment and Plan Plan: Assessment 1 acute hyperglycemia without significant ketosis. The patient has significant anion gap metabolic acidosis which is essentially lactic acidosis. As such she may be in a hyperosmolar nonketotic state in addition to an underlying lactic acidosis. The patient has recovered from the acute hyperglycemic attack and the patient is back to long-acting insulin. 2 lactic acidosis improved rule out a component of chronic mesenteric ischemia. CTA of the abdomen has been ordered. 3 insulin-dependent diabetes mellitus type 2, with recurrent bouts of DKA in the past 4 chronic pancreatitis, recurrent 5 chronic diabetic gastroparesis with recurrent abdominal pain secondary to above 6 peripheral neuropathy 7 hypertension 8 hypertriglyceridemia 9 chronic pain syndrome 10 coronary artery disease 11 gastric esophageal reflux/GERD 12 generalized anxiety disorder/depression 13 previous history of infectious colitis 14 previous history of insertion abuse stent/ERCP 15 PTSD/anxiety/depression Plan The patient is currently on D5 half-normal at the rate of 75 mL an hour. This can be gradually As the Patient Increase His Oral Intake. Advance Diet As Tolerated. Currently She Is on Soft Carb Consistent Diet. Long-Acting Insulin Has Been Started. The Patient Would Have a CAT Scan of the Abdomen. I Will Review the CAT Scan Results and Then Sign off the Case and Leave the Rest of the Management to Dr. Borges.
[2016-10-15 11:48] LABS: Glucose,Whole Blood 106 mg/dL (75-99)
[2016-10-15] MEDS: LISINOPRIL 20 MG TAB PO SCH (12:37)
--- NOTE | 2016-10-15 14:19 | P.PN ---
Subjective This is a 51-year-old female patient of [facility] with previous medical history significant for familial dyslipidemia, recurrent pancreatitis and chroni abdominal pain, thought to be due to hypertriglyceridemia, hypertension and hypertensive cardiovascular disease, diabetes mellitus type 2 with recurrent diabetic ketoacidosis as well as episodes of hyperosmolar nonketotic hyperglycemia, hypertensive cardiovascular disease, chronic pain syndrome, gastroparesis, gastroesophageal reflux disease, diabetic polyneuropathy. She presented to [facility] emergency center 8:00 in the morning after 2 hours of increased abdominal pain associated with the nausea and diarrhea patient stated that she started not feeling well yesterday in the evening and she did not take Lantus however she took 33 units of Lantus instead and the she checked her blood glucose level that was quite high greater than 600 since her glucometer goes to 600, so she ended up coming to the ER she was found to have a blood glucose level of greater than 6 and she did receive for a liter of normal saline, and she was started on insulin drip, her ketone levels are negative, however lactic acid was high at 8 subsequently after fluid resuscitation dropped down to 7.1, patient ended up admitted to the hospital for hyperosmolar nonketotic hyperglycemia she was placed on insulin drip along with the rest of her medication she was admitted to the hospital for further evaluation and recommendation. 10/14: Blood sugars are running 175-233. She is still on D5 half normal saline IV fluids and insulin drip. She has been seen by Dr. Leandra Larios in for intensive care management. Lactic acid is currently 4.3. We will plan to start her home Levemir tonight and stop the insulin drip. She is planning for a full liquid diet for lunch and continue to advance. Dr. Berry is ordering a CT of the abdomen 10/15: Lactic acid is 2.2. Her blood glucose running between 194 and 229. She was started back on her Levemir and scheduled Humalog. Patient will be transferred to the [facility] floor today. CAT scan shows no acute abdominal process. Minimal pneumonitis changes within the lung bases. Anticipate patient will be discharged home tomorrow. Objective - Vital Signs Vital signs: Vital Signs Temp 97.4 F L 10/15/16 08:00 Pulse 61 10/15/16 08:00 Resp 18 10/15/16 08:00 BP 90/47 10/15/16 08:00 Pulse Ox 97 10/15/16 08:00 Intake & Output 10/14/16 10/15/16 10/15/16 18:59 06:59 18:59 Intake Total 2209.925 1077.139 176 Output Total 1927 750 500 Balance 282.925 327.139 -324 Weight 68.4 kg Intake: IV 1425 825 176 Dextrose 5%-0.45% NaCl 1, 900 000 ml @ 150 mls/hr IV . Q6H40M ZACK Rx#:[id number] Dextrose 5%-0.45% NaCl 1, 525 825 76 000 ml @ 75 mls/hr IV . [id number] ZACK Rx#:[id number] Magnesium Sulfate-D5w Pmx 100 1 gm In Dextrose/Water 1 100ml.bag @ 100 mls/hr IVPB Q1H ZACK Rx#: [id number] Intake, IV Titration 34.925 2.139 Amount Insulin Regular 100 unit 34.925 2.139 In Sodium Chloride 0.9% 100 ml @ Per Protocol IV .Q0M [facility]ACK Rx#:[id number] Oral 750 250 Output: Urine 1925 750 500 Urine/Stool Mix 2 Other: Voiding Method Toilet Toilet Toilet # Voids 1 # Bowel Movements 1 - Exam General appearance: average body habitus, cooperative, no acute distress - EENT Eyes: anicteric sclerae, EOMI, PERRLA, no ptosis, no scleral icterus, normal appearance ENT: hearing grossly normal, normal oropharynx, no thrush Ears: bilateral: normal - Neck Neck: normal ROM, no rigidity, no stridor, no thyromegaly Carotids: bilateral: upstroke normal Thyroid: bilateral: normal size - Respiratory Respiratory: bilateral: CTA, negative: diminished, dullness, rales, rhonchi, wheezing, prolonged expiration, prolonged inspiration - Cardiovascular Rhythm: regular Heart sounds: normal: S1, S2 Abnormal Heart Sounds: no S3 Gallop, no S4 Gallop, no click - Gastrointestinal General gastrointestinal: normal bowel sounds, soft, no splenomegaly, tenderness , no umbilical hernia Localized gastrointestinal: tender: diffuse, epigastric periumbilical - Integumentary Integumentary: normal, normal turgor - Neurologic Neurologic: CNII-XII intact - Musculoskeletal Musculoskeletal: generalized weakness, strength equal bilaterally - Psychiatric Psychiatric: A&O x's 3, appropriate affect, intact judgment & insight - Labs CBC & Chem 7: 10/15/16 04:22 10/15/16 04:22 Labs: Abnormal Lab Results - Last 24 Hours (Table) 10/14/16 10/14/16 10/14/16 Range/Units 08:56 10:01 11:02 Plt Count (150-450) k/uL BUN (7-17) mg/dL Glucose (74-99) mg/dL POC Glucose (mg/dL) 233 H 227 H 223 H (75-99) mg/dL Plasma Lactic Acid Dawit (0.7-2.0) mmol/L 10/14/16 10/14/16 10/14/16 Range/Units 12:03 13:09 13:57 Plt Count (150-450) k/uL BUN (7-17) mg/dL Glucose (74-99) mg/dL POC Glucose (mg/dL) 194 H 115 H 176 H (75-99) mg/dL Plasma Lactic Acid Dawit (0.7-2.0) mmol/L 10/14/16 10/14/16 10/14/16 Range/Units 15:04 16:11 16:57 Plt Count (150-450) k/uL BUN (7-17) mg/dL Glucose (74-99) mg/dL POC Glucose (mg/dL) 185 H 149 H 122 H (75-99) mg/dL Plasma Lactic Acid Dawit (0.7-2.0) mmol/L 10/14/16 10/14/16 10/14/16 Range/Units 18:06 18:46 20:04 Plt Count (150-450) k/uL BUN (7-17) mg/dL Glucose (74-99) mg/dL POC Glucose (mg/dL) 134 H 158 H 213 H (75-99) mg/dL Plasma Lactic Acid Dawit (0.7-2.0) mmol/L 10/14/16 10/15/16 10/15/16 Range/Units 21:10 04:22 04:22 Plt Count 113 L (150-450) k/uL BUN 6 L (7-17) mg/dL Glucose 184 H (74-99) mg/dL POC Glucose (mg/dL) 229 H (75-99) mg/dL Plasma Lactic Acid Dawit (0.7-2.0) mmol/L 10/15/16 10/15/16 Range/Units 04:22 07:29 Plt Count (150-450) k/uL BUN (7-17) mg/dL Glucose (74-99) mg/dL POC Glucose (mg/dL) 194 H (75-99) mg/dL Plasma Lactic Acid Dawit 2.2 H* (0.7-2.0) mmol/L Microbiology - Last 24 Hours (Table) 10/13/16 09:20 Urine Culture - Final Urine,Voided Assessment and Plan Plan: 1. Hyperosmolar nonketotic hyperglycemia. IV fluid, insulin drip discontinued and patient transition to Levemir and scheduled Humalog. 2. History of diabetes mellitus type 2, insulin requiring we will transition the patient back to Levemir 66 units at bedtime along with Humalog. 3. Hypertension and hypertensive cardiovascular disease with left ventricular hypertrophy we will continue the patient on atenolol 100 mg orally once every day as well as lisinopril 20 mg orally once every day. 4. Hyperlipidemia continue the patient on Crestor 40 mg orally once every day, fenofibrate 160 mg orally once every day,Niaspan 1000 g orally once every. 5. Diabetic polyneuropathy continue gabapentin 200 mg orally twice every day. 6. Anxiety generalized disorder. Continue Klonopin 2 milligram in the evening and 1 mg in the morning. 7. Depression, recurrent. Continue Zoloft 200 mg orally once every day. 8. Gastroparesis continue Reglan 5 mg before each meal 3 times every day. 9. Chronic pancreatitis continue IV fluid resuscitation as well as current pain management in the form of Dilaudid along with fentanyl patch. 10. GERD continue PPI. 11. DVT. Continue heparin 5000 units subcutaneously every 12 hours. 12. Full code. Discharge plan: Return home tomorrow Impression and plan of care have been directed as dictated by the signing physician. Amanda Kumar nurse practitioner acting as scribe for signing physician.
[2016-10-15 16:55] LABS: Glucose,Whole Blood 106 mg/dL (75-99)
[2016-10-15] MEDS ORDERED: INSULIN LISPRO (humaLOG) 300 UNIT/3 ML VIAL SQ SCH (17:30)
[2016-10-15] MEDS: ATORVASTATIN 80 MG TAB PO SCH (20:20)
[2016-10-15] MEDS: FENOFIBRATE 160 MG TAB PO SCH (20:21)
[2016-10-15] MEDS: MIRTAZAPINE 45 MG TABLET PO SCH (20:21)
[2016-10-15] MEDS: NIACIN TR 500 MG CAPSULE.ER PO SCH (20:21)
[2016-10-15 20:50] LABS: Glucose,Whole Blood 98 mg/dL (75-99)
[2016-10-15] MEDS: INSULIN DETEMIR 100 UNIT/ML 10 ML VIAL SQ SCH (21:09)
[2016-10-16] MEDS: DEXTROSE 5%-0.45% NACL 1,000 ML IV SCH ×2 (03:26→09:20)
[2016-10-16] MEDS: HYDROmorphone 2 MG/ML 1 ML SYRINGE IVP PRN ×2 (06:14→09:20)
[2016-10-16] MEDS: ONDANSETRON 4 MG/2 ML VIAL IVP PRN (06:22)
[2016-10-16 06:58] LABS: Glucose,Whole Blood 207 mg/dL (75-99)
[2016-10-16 07:35] VITALS: BP 111/75; PULSE 73; RESP 18; TEMP 97.4
[2016-10-16] MEDS: INSULIN LISPRO (humaLOG) 300 UNIT/3 ML VIAL SQ SCH ×2 (07:37→12:40)
[2016-10-16] MEDS: ATENOLOL 50 MG TAB PO SCH (07:37)
[2016-10-16] MEDS: GABAPENTIN 100 MG CAP PO SCH (07:37)
[2016-10-16] MEDS: CALCIUM CARB-VIT D 500MG-200UN 1 EACH TAB PO SCH (07:38)
[2016-10-16] MEDS: FAMOTIDINE 20 MG TAB PO SCH (07:38)
[2016-10-16] MEDS: LORATADINE 10 MG TAB PO SCH (07:38)
[2016-10-16] MEDS: SERTRALINE 100 MG TAB PO SCH (07:38)
[2016-10-16] MEDS: LISINOPRIL 20 MG TAB PO SCH (07:38)
[2016-10-16] MEDS: METOCLOPRAMIDE 5 MG TAB PO SCH ×2 (07:38→12:40)
[2016-10-16] MEDS: clonazePAM 1 MG TAB PO SCH (07:42)
[2016-10-16 09:01] LABS: Basophils % (A) 0 %; CH 30.4; CHCM 33.8; Eosinophils # (A) 0.1 k/uL (0-0.7); Eosinophils % (A) 2 %; HCT 39.4 % (34.0-46.0); HDW 2.87; HGB 13.7 gm/dL (11.4-16.0); Luc # (Auto) 0.14; Luc % (Auto) 2; Lymphocytes # (A) 2.8 k/uL (1.0-4.8); Lymphocytes % (A) 43 %; MCH 31.5 pg (25.0-35.0); MCHC 34.9 g/dL (31.0-37.0); MCV 90.2 fL (80.0-100.0); Mean Platelet Volume 6.6; Monocytes # (A) 0.3 k/uL (0-1.0); Monocytes % (A) 5 %; Neutrophils % (A) 47 %; RBC 4.36 m/uL (3.80-5.40); RDW 12.6 % (11.5-15.5); WBC 6.4 k/uL (3.8-10.6); WBC (Perox) 6.55
[2016-10-16 09:26] LABS: Anion Gap 12 mmol/L; Blood Urea Nitrogen 16 mg/dL (7-17); Calcium 9.2 mg/dL (8.4-10.2); Carbon Dioxide 25 mmol/L (22-30); Chloride 103 mmol/L (98-107); Glucose 239 mg/dL (74-99); Magnesium 1.5 mg/dL (1.6-2.3); Non-African American GFR(MDRD) >60 (>60 ml/min/1.73 sqM); Phosphorous 3.3 mg/dL (2.5-4.5); Potassium 3.7 mmol/L (3.5-5.1); Sodium 140 mmol/L (137-145)
[2016-10-16 12:23] LABS: Glucose,Whole Blood 139 mg/dL (75-99)
[2016-10-16] MEDS: MULTIVITAMINS, THERA 1 EACH TAB PO SCH (12:40)
--- NOTE | 2016-10-16 13:58 | P.DS ---
Providers Date of admission: 10/13/16 12:25 Expected date of discharge: 10/16/16 Attending physician: Mike Borges Consults: 10/13/16 12:11 Consult Physician Routine Consulting Provider: Zeeshan Berry Consult Reason/Comments: lactic acidosis Do you want consulting provider notified?: Already Contacted Primary care physician: Mike Borges [facility] Course: This is a 51-year-old female patient of [facility] with previous medical history significant for familial dyslipidemia, recurrent pancreatitis and chroni abdominal pain, thought to be due to hypertriglyceridemia, hypertension and hypertensive cardiovascular disease, diabetes mellitus type 2 with recurrent diabetic ketoacidosis as well as episodes of hyperosmolar nonketotic hyperglycemia, hypertensive cardiovascular disease, chronic pain syndrome, gastroparesis, gastroesophageal reflux disease, diabetic polyneuropathy. She presented to [facility] emergency center 8:00 in the morning after 2 hours of increased abdominal pain associated with the nausea and diarrhea patient stated that she started not feeling well yesterday in the evening and she did not take Lantus however she took 33 units of Lantus instead and the she checked her blood glucose level that was quite high greater than 600 since her glucometer goes to 600, so she ended up coming to the ER she was found to have a blood glucose level of greater than 6 and she did receive for a liter of normal saline, and she was started on insulin drip, her ketone levels are negative, however lactic acid was high at 8 subsequently after fluid resuscitation dropped down to 7.1, patient ended up admitted to the hospital for hyperosmolar nonketotic hyperglycemia she was placed on insulin drip along with the rest of her medication she was admitted to the hospital for further evaluation and recommendation. 10/14: Blood sugars are running 175-233. She is still on D5 half normal saline IV fluids and insulin drip. She has been seen by Dr. Leandra Larios in for intensive care management. Lactic acid is currently 4.3. We will plan to start her home Levemir tonight and stop the insulin drip. She is planning for a full liquid diet for lunch and continue to advance. Dr. Berry is ordering a CT of the abdomen 10/15: Lactic acid is 2.2. Her blood glucose running between 194 and 229. She was started back on her Levemir and scheduled Humalog. Patient will be transferred to the [facility] floor today. CAT scan shows no acute abdominal process. Minimal pneumonitis changes within the lung bases. Anticipate patient will be discharged home tomorrow. 10/16: Blood sugars remain improved running between 98 and 207. Patient will be discharged home today in stable condition. Patient did have order previous Senthil for gastric emptying study which she did not complete. We are asking the patient to schedule this after her discharge. Patient will need follow-up with Dr. heath's office for pain medication prescriptions. Discharge Diagnoses: 1. Hyperosmolar nonketotic hyperglycemia. 2. History of diabetes mellitus type 2, insulin requiring 3. Hypertension and hypertensive cardiovascular disease with left ventricular hypertrophy 4. Hyperlipidemia 5. Diabetic polyneuropathy 6. Anxiety generalized disorder. 7. Depression, recurrent. 8. Gastroparesis 9. Chronic pancreatitis 10. GERD Discharge plan: Return home tomorrow Impression and plan of care have been directed as dictated by the signing physician. Amanda Kumar nurse practitioner acting as scribe for signing physician. Patient Condition at Discharge: Good Plan - Discharge Summary New Discharge Prescriptions: Continue Lisinopril [Zestril] 20 mg PO DAILY Fenofibrate [Lofibra] 160 mg PO HS tab Gabapentin [Neurontin] 200 mg PO BID cap Metoclopramide [Reglan] 5 mg PO ACHS tab Prochlorperazine [Compazine] 10 mg PO TID PRN #0 tab PRN Reason: Nausea Sertraline [Zoloft] 200 mg PO DAILY tab HYDROmorphone [Dilaudid] 2 mg PO Q8H PRN PRN Reason: Pain Multivitamins, Thera [Multivitamin (formulary)] 1 tab PO DAILY Calcium Carb-Vit D 500Mg-200Un [Oscal 500+D] 1 tab PO BID Atenolol [Tenormin] 100 mg PO DAILY Mirtazapine [Remeron] 45 mg PO HS Rosuvastatin Calcium [Crestor] 40 mg PO HS fentaNYL 25MCG/HR PATCH [Duragesic 25MCG/HR] 1 patch TRANSDERM Q72H #0 Insulin Aspart [NovoLOG Flexpen] 36 units SQ AC-SUPPER Insulin Aspart [NovoLOG Flexpen] 26 unit SQ AC-BRKFST Insulin Aspart [NovoLOG Flexpen] 26 unit SQ AC-LUNCH Pancreatic Enzymes Otc(Unknown) 1 cap PO AC-TID Cetirizine HCl [Zyrtec] 10 mg PO DAILY Niacin 1,000 mg PO HS clonazePAM [KlonoPIN] 2 mg PO HS Dicyclomine [Bentyl] 10 mg PO TID PRN #90 cap PRN Reason: Diarrhea Famotidine [Pepcid] 20 mg PO BID #0 Insulin Detemir [Levemir] 66 unit SQ HS Ondansetron Odt [Zofran ODT] 4 mg PO Q8HR PRN #20 tab PRN Reason: Nausea clonazePAM [KlonoPIN] 1 mg PO QAM Discharge Medication List Lisinopril [Zestril] 20 mg PO DAILY 09/09/13 [History] Fenofibrate [Lofibra] 160 mg PO HS tab 08/09/14 [Rx] Gabapentin [Neurontin] 200 mg PO BID cap 08/09/14 [Rx] Metoclopramide [Reglan] 5 mg PO ACHS tab 08/09/14 [Rx] Prochlorperazine [Compazine] 10 mg PO TID PRN #0 tab 08/09/14 [Rx] Sertraline [Zoloft] 200 mg PO DAILY tab 08/09/14 [Rx] HYDROmorphone [Dilaudid] 2 mg PO Q8H PRN 09/17/14 [History] Multivitamins, Thera [Multivitamin (formulary)] 1 tab PO DAILY 09/17/14 [History ] Atenolol [Tenormin] 100 mg PO DAILY 11/19/14 [History] Calcium Carb-Vit D 500Mg-200Un [Oscal 500+D] 1 tab PO BID 11/19/14 [History] Mirtazapine [Remeron] 45 mg PO HS 11/19/14 [History] Rosuvastatin Calcium [Crestor] 40 mg PO HS 11/19/14 [History] fentaNYL 25MCG/HR PATCH [Duragesic 25MCG/HR] 1 patch TRANSDERM Q72H #0 [Rx] Insulin Aspart [NovoLOG Flexpen] 26 unit SQ AC-BRKFST 10/14/15 [History] Insulin Aspart [NovoLOG Flexpen] 26 unit SQ AC-LUNCH 10/14/15 [History] Insulin Aspart [NovoLOG Flexpen] 36 units SQ AC-SUPPER 10/14/15 [History] Pancreatic Enzymes Otc(Unknown) 1 cap PO AC-TID 10/14/15 [History] Cetirizine HCl [Zyrtec] 10 mg PO DAILY 02/04/16 [History] Niacin 1,000 mg PO HS 02/04/16 [History] clonazePAM [KlonoPIN] 2 mg PO HS 02/04/16 [History] Dicyclomine [Bentyl] 10 mg PO TID PRN #90 cap 03/22/16 [Rx] Famotidine [Pepcid] 20 mg PO BID #0 03/22/16 [Rx] Insulin Detemir [Levemir] 66 unit SQ HS 07/21/16 [History] Ondansetron Odt [Zofran ODT] 4 mg PO Q8HR PRN #20 tab 07/21/16 [Rx] clonazePAM [KlonoPIN] 1 mg PO QAM 07/21/16 [History] Follow up Appointment(s)/Referral(s): Mike Borges MD [Primary Care Provider] - 1 Week Zeeshan Berry MD [STAFF PHYSICIAN] - 1 Week Patient Instructions/Handouts: Diabetic Hyperglycemia (DC), Lactic Acidosis ( GEN) Activity/Diet/Wound Care/Special Instructions: Scheduled for gastric emptying test as an outpatient Discharge Disposition: HOME SELF-CARE
== END 2016-10-16 13:49 | disposition home or self-care (01) | DRG 638 ==
LOC: EC 08:44 → 6ICU 12:25 → 4MS4W 10-15 09:35
PROVIDERS: ADMIT Internal Medicine; ATTEND Internal Medicine
DX: E11.65 Type 2 diabetes mellitus with hyperglycemia (principal); K86.1 Other chronic pancreatitis; E87.2 Acidosis; I11.9 Hypertensive heart disease without heart failure; E11.42 Type 2 diabetes mellitus with diabetic polyneuropathy; E11.43 Type 2 diabetes mellitus with diabetic autonomic (poly)neuropathy; E78.1 Pure hyperglyceridemia; E78.4 Other hyperlipidemia; F32.9 Major depressive disorder, single episode, unspecified; F41.0 Panic disorder [episodic paroxysmal anxiety]; F41.1 Generalized anxiety disorder; F43.10 Post-traumatic stress disorder, unspecified; G89.4 Chronic pain syndrome; I25.10 Atherosclerotic heart disease of native coronary artery without angina pectoris; K21.9 Gastro-esophageal reflux disease without esophagitis; K31.84 Gastroparesis; Z79.4 Long term (current) use of insulin; Z79.899 Other long term (current) drug therapy; Z88.6 Allergy status to analgesic agent
CPT/HCPCS: 36415; 74020; 74160; 80048; 80051; 80053; 81003; 82009; 82150; 82565; 82947; 83036; 83605; 83690; 83735; 84100; 84520; 85025; 87086; 96361; 96374; 96375; 99285

== ENCOUNTER 2016-11-24 07:11 | Inpatient (IN) | payer MEDICARE ==
[2016-11-24] MEDS ORDERED: SODIUM CHLORIDE 0.9% 1,000 ML IV ONE ×2 (07:37→08:48)
[2016-11-24] MEDS ORDERED: HYDROmorphone 1 MG/ML 1 ML SYRINGE IVP STA (07:37)
[2016-11-24] MEDS ORDERED: ONDANSETRON 4 MG/2 ML VIAL IVP STA (07:37)
[2016-11-24] MEDS ORDERED: SODIUM CHLORIDE 0.9% 1,000 ML IV SCH (07:45)
--- NOTE | 2016-11-24 08:21 | ED ---
General Adult HPI - General Chief complaint: Abdominal Pain Stated complaint: hyperglycemia, pain and diarrhea Time Seen by Provider: 11/24/16 07:13 Source: patient, RN notes reviewed, old records reviewed Mode of arrival: ambulatory Limitations: no limitations - History of Present Illness Initial comments: 52-year-old female with history of familial hyperlipidemia, chronic pancreatitis , and insulin-dependent diabetes presents with nausea vomiting and diarrhea as well as severe abdominal pain. Patient describes the pain as sharp in nature, located in the middle of her stomach. She states she had 2 episodes of vomiting over the past 24 hours, has had constant nausea. She also reports several days of increasing diarrhea. Patient has additional past medical history of gastroparesis. She denies fever or chills. Denies chest pain or shortness of breath. She does states she has not been able to keep anything down, including her normal pain medication. - Related Data Home Medications Medication Instructions Recorded Confirmed Lisinopril [Zestril] 20 mg PO DAILY 09/09/13 11/24/16 HYDROmorphone [Dilaudid] 2 mg PO Q8H PRN 09/17/14 11/24/16 Multivitamins, Thera [Multivitamin 1 tab PO DAILY 09/17/14 11/24/16 (formulary)] Atenolol [Tenormin] 100 mg PO DAILY 11/19/14 11/24/16 Calcium Carb-Vit D 500Mg-200Un 1 tab PO BID 11/19/14 11/24/16 [Oscal 500+D] Mirtazapine [Remeron] 45 mg PO HS 11/19/14 11/24/16 Rosuvastatin Calcium [Crestor] 40 mg PO HS 11/19/14 11/24/16 Insulin Aspart [NovoLOG Flexpen] 26 unit SQ AC-BRKFST 10/14/15 11/24/16 Insulin Aspart [NovoLOG Flexpen] 26 unit SQ AC-LUNCH 10/14/15 11/24/16 Insulin Aspart [NovoLOG Flexpen] 36 units SQ AC-SUPPER 10/14/15 11/24/16 Pancreatic Enzymes Otc(Unknown) 1 cap PO AC-TID 10/14/15 11/24/16 Cetirizine HCl [Zyrtec] 10 mg PO DAILY 02/04/16 11/24/16 Niacin 1,000 mg PO HS 02/04/16 11/24/16 clonazePAM [KlonoPIN] 2 mg PO HS 02/04/16 11/24/16 Insulin Detemir [Levemir] 66 unit SQ HS 07/21/16 11/24/16 clonazePAM [KlonoPIN] 1 mg PO QAM 07/21/16 11/24/16 Previous Rx's Medication Instructions Recorded Fenofibrate [Lofibra] 160 mg PO HS tab 08/09/14 Gabapentin [Neurontin] 200 mg PO BID cap 08/09/14 Metoclopramide [Reglan] 5 mg PO ACHS tab 08/09/14 Prochlorperazine [Compazine] 10 mg PO TID PRN #0 tab 08/09/14 Sertraline [Zoloft] 200 mg PO DAILY tab 08/09/14 fentaNYL 25MCG/HR PATCH [Duragesic 1 patch TRANSDERM Q72H #0 07/10/15 25MCG/HR] Dicyclomine [Bentyl] 10 mg PO TID PRN #90 cap 03/22/16 Famotidine [Pepcid] 20 mg PO BID #0 03/22/16 Ondansetron Odt [Zofran ODT] 4 mg PO Q8HR PRN #20 tab 07/21/16 Allergies Allergy/AdvReac Type Severity Reaction Status Date / Time NSAIDS (Non-Steroidal Allergy Rash/Hives Verified 11/24/16 08:18 Anti-Inflamma Review of Systems ROS Statement: Those systems with pertinent positive or pertinent negative responses have been documented in the HPI. ROS Other: All systems not noted in ROS Statement are negative. Past Medical History Past Medical History: Coronary Artery Disease (CAD), Diabetes Mellitus, GERD/ Reflux, Hyperlipidemia, Hypertension, Syncope Additional Past Medical History / Comment(s): IDDM typeII, recurrent DKA, episodes of hyperosmolar nonketonic hyperglycemia, hypertensive heart disease, chronic pain syndrome, hypertriglyceridemia, chronic pancreatitis, chronic abdominal pain, gastroparesis, severe GERD, diabetic polyneuropathy mostly in hands and alittle in feet bilaterally, infectious colitis. History of Any Multi-Drug Resistant Organisms: None Reported Past Surgical History: Cholecystectomy Additional Past Surgical History / Comment(s): Biliary stent through an ERCP that was performed at [facility] and stent removed 2007, lap jenn, colonoscopy, ERCP. Past Anesthesia/Blood Transfusion Reactions: No Reported Reaction Additional Past Anesthesia/Blood Transfusion Reaction / Comment(s): Pt has never received blood."CLAUSTERPHOBIA" Past Psychological History: Anxiety, Depression, Panic Disorder, PTSD Smoking Status: Never smoker Past Alcohol Use History: None Reported Past Drug Use History: None Reported - Past Family History Father Family Medical History: No Reported History Additional Family Medical History / Comment(s): Father had severe anxiety and was hospitalized for this at times. Mother Family Medical History: Cancer Additional Family Medical History / Comment(s): Mother of metastatic breast CA at the age of 42yrs. General Exam Limitations: no limitations General appearance: alert, in distress Head exam: Present: atraumatic, normocephalic Eye exam: Present: normal appearance, PERRL ENT exam: Present: normal exam, mucous membranes dry Neck exam: Present: normal inspection, full ROM. Absent: meningismus Respiratory exam: Present: normal lung sounds bilaterally. Absent: respiratory distress Cardiovascular Exam: Present: regular rate, normal rhythm GI/Abdominal exam: Present: soft, tenderness (Tenderness in the epigastrium), guarding. Absent: distended, rigid Neurological exam: Present: alert, oriented X3, CN II-XII intact. Absent: motor sensory deficit Psychiatric exam: Present: normal affect, normal mood Skin exam: Present: warm, dry. Absent: rash, cyanosis, diaphoretic Course Vital Signs 11/24/16 07:17 Temperature 98.6 F Pulse Rate 84 Respiratory 20 Rate Blood Pressure 138/89 O2 Sat by Pulse 97 Oximetry - Reevaluation(s) Reevaluation #1: 11/24/16 09:32 Reevaluation, patient's abdominal pain is improved. No nausea vomiting while in the emergency department Medical Decision Making - Medical Decision Making 51-year-old female with hypercholesterolemia, gastroparesis, chronic pancreatitis, and insulin-dependent diabetes presents with abdominal pain nausea vomiting. Patient is found to have elevated lactic acid at 6.5, blood sugar is 600. Patient does receive IV hydration and IV is along the emergency department. Lactic acid is likely type B lactic acidosis, the patient does not appear to be significantly dehydrated or have reasons for hypoperfusion. Anion gap of 18, CO2 of 17, venous pH is normal at 7.37. There is mild metabolic acidosis, no ketones in the urine, no signs of DKA. On reevaluation the patient's abdominal pain is improved after IV Dilaudid. Patient's electrolytes are within normal limits. She'll be continued on IV hydration for hyperglycemia and lactic acidosis. Currently awaiting repeat blood sugar after single dose of IV insulin to determine if the patient will benefit from insulin infusion. Case is discussed with the patient's primary care physician. Patient will be admitted to telemetry for continued IV hydration, pain control, and treatment of hyperglycemia in lactic acidosis. Diagnosis: Nausea vomiting, chronic pancreatitis, lactic acidosis, hyperglycemia. - Lab Data Result diagrams: 11/24/16 08:00 11/24/16 08:00 Lab Results 11/24/16 11/24/16 11/24/16 Range/Units 08:00 08:00 08:00 WBC 5.6 (3.8-10.6) k/uL RBC 4.52 (3.80-5.40) m/uL Hgb 13.7 (11.4-16.0) gm/dL Hct 41.8 (34.0-46.0) % MCV 92.3 (80.0-100.0) fL MCH 30.4 (25.0-35.0) pg MCHC 32.9 (31.0-37.0) g/dL RDW 13.9 (11.5-15.5) % Plt Count 188 (150-450) k/uL Neutrophils % 78 % Lymphocytes % 17 % Monocytes % 3 % Eosinophils % 1 % Basophils % 0 % Neutrophils # 4.4 (1.3-7.7) k/uL Lymphocytes # 1.0 (1.0-4.8) k/uL Monocytes # 0.2 (0-1.0) k/uL Eosinophils # 0.0 (0-0.7) k/uL Basophils # 0.0 (0-0.2) k/uL PT (9.0-12.0) sec INR (<1.2) APTT (22.0-30.0) sec VBG pH (7.31-7.41) VBG pCO2 (37-51) mmHg VBG HCO3 (24-28) mmol/L Sodium 142 (137-145) mmol/L Potassium 4.3 (3.5-5.1) mmol/L Chloride 107 (98-107) mmol/L Carbon Dioxide 17 L (22-30) mmol/L Anion Gap 18 mmol/L BUN 13 (7-17) mg/dL Creatinine 0.58 (0.52-1.04) mg/dL Est GFR (MDRD) Af Amer >60 (>60 ml/min/1.73 sqM) Est GFR (MDRD) Non-Af >60 (>60 ml/min/1.73 sqM) Glucose 563 H* (74-99) mg/dL Plasma Lactic Acid Dawit 6.5 H* (0.7-2.0) mmol/L Calcium 10.1 (8.4-10.2) mg/dL Total Bilirubin 0.6 (0.2-1.3) mg/dL AST 32 (14-36) U/L ALT 31 (9-52) U/L Alkaline Phosphatase 110 (38-126) U/L Troponin I (0.000-0.034) ng/mL Total Protein 7.3 (6.3-8.2) g/dL Albumin 4.8 (3.5-5.0) g/dL Amylase 58 (30-110) U/L Lipase 63 (23-300) U/L Urine Color Urine Appearance (Clear) Urine pH (5.0-8.0) Ur Specific Wilmot (1.001-1.035) Urine Protein (Negative) Urine Glucose (UA) (Negative) Urine Ketones (Negative) Urine Blood (Negative) Urine Nitrite (Negative) Urine Bilirubin (Negative) Urine Urobilinogen (<2.0) mg/dL Ur Leukocyte Esterase (Negative) 11/24/16 11/24/16 11/24/16 Range/Units 08:00 08:00 08:00 WBC (3.8-10.6) k/uL RBC (3.80-5.40) m/uL Hgb (11.4-16.0) gm/dL Hct (34.0-46.0) % MCV (80.0-100.0) fL MCH (25.0-35.0) pg MCHC (31.0-37.0) g/dL RDW (11.5-15.5) % Plt Count (150-450) k/uL Neutrophils % % Lymphocytes % % Monocytes % % Eosinophils % % Basophils % % Neutrophils # (1.3-7.7) k/uL Lymphocytes # (1.0-4.8) k/uL Monocytes # (0-1.0) k/uL Eosinophils # (0-0.7) k/uL Basophils # (0-0.2) k/uL PT 10.3 (9.0-12.0) sec INR 1.0 (<1.2) APTT 23.2 (22.0-30.0) sec VBG pH 7.37 (7.31-7.41) VBG pCO2 36 L (37-51) mmHg VBG HCO3 20 L (24-28) mmol/L Sodium (137-145) mmol/L Potassium (3.5-5.1) mmol/L Chloride (98-107) mmol/L Carbon Dioxide (22-30) mmol/L Anion Gap mmol/L BUN (7-17) mg/dL Creatinine (0.52-1.04) mg/dL Est GFR (MDRD) Af Amer (>60 ml/min/1.73 sqM) Est GFR (MDRD) Non-Af (>60 ml/min/1.73 sqM) Glucose (74-99) mg/dL Plasma Lactic Acid Dawit (0.7-2.0) mmol/L Calcium (8.4-10.2) mg/dL Total Bilirubin (0.2-1.3) mg/dL AST (14-36) U/L ALT (9-52) U/L Alkaline Phosphatase (38-126) U/L Troponin I <0.012 (0.000-0.034) ng/mL Total Protein (6.3-8.2) g/dL Albumin (3.5-5.0) g/dL Amylase (30-110) U/L Lipase (23-300) U/L Urine Color Urine Appearance (Clear) Urine pH (5.0-8.0) Ur Specific Wilmot (1.001-1.035) Urine Protein (Negative) Urine Glucose (UA) (Negative) Urine Ketones (Negative) Urine Blood (Negative) Urine Nitrite (Negative) Urine Bilirubin (Negative) Urine Urobilinogen (<2.0) mg/dL Ur Leukocyte Esterase (Negative) 11/24/16 Range/Units 08:00 WBC (3.8-10.6) k/uL RBC (3.80-5.40) m/uL Hgb (11.4-16.0) gm/dL Hct (34.0-46.0) % MCV (80.0-100.0) fL MCH (25.0-35.0) pg MCHC (31.0-37.0) g/dL RDW (11.5-15.5) % Plt Count (150-450) k/uL Neutrophils % % Lymphocytes % % Monocytes % % Eosinophils % % Basophils % % Neutrophils # (1.3-7.7) k/uL Lymphocytes # (1.0-4.8) k/uL Monocytes # (0-1.0) k/uL Eosinophils # (0-0.7) k/uL Basophils # (0-0.2) k/uL PT (9.0-12.0) sec INR (<1.2) APTT (22.0-30.0) sec VBG pH (7.31-7.41) VBG pCO2 (37-51) mmHg VBG HCO3 (24-28) mmol/L Sodium (137-145) mmol/L Potassium (3.5-5.1) mmol/L Chloride (98-107) mmol/L Carbon Dioxide (22-30) mmol/L Anion Gap mmol/L BUN (7-17) mg/dL Creatinine (0.52-1.04) mg/dL Est GFR (MDRD) Af Amer (>60 ml/min/1.73 sqM) Est GFR (MDRD) Non-Af (>60 ml/min/1.73 sqM) Glucose (74-99) mg/dL Plasma Lactic Acid Dawit (0.7-2.0) mmol/L Calcium (8.4-10.2) mg/dL Total Bilirubin (0.2-1.3) mg/dL AST (14-36) U/L ALT (9-52) U/L Alkaline Phosphatase (38-126) U/L Troponin I (0.000-0.034) ng/mL Total Protein (6.3-8.2) g/dL Albumin (3.5-5.0) g/dL Amylase (30-110) U/L Lipase (23-300) U/L Urine Color Colorless Urine Appearance Clear (Clear) Urine pH 5.0 (5.0-8.0) Ur Specific Wilmot 1.028 (1.001-1.035) Urine Protein Negative (Negative) Urine Glucose (UA) 4+ H (Negative) Urine Ketones Negative (Negative) Urine Blood Negative (Negative) Urine Nitrite Negative (Negative) Urine Bilirubin Negative (Negative) Urine Urobilinogen <2.0 (<2.0) mg/dL Ur Leukocyte Esterase Negative (Negative) Disposition Clinical Impression: Pancreatitis, Lactic acidosis, Hyperglycemia Disposition: ADMITTED IP TO THIS [facility] Condition: Stable Referrals: Mike Borges MD [Primary Care Provider] - 1-2 days Decision to Admit Reason: Admit from EC Decision Date: 11/24/16 Decision Time: 09:36
[2016-11-24 08:26] LABS: Basophils % (A) 0 %; CH 31.8; CHCM 34.6; Eosinophils % (A) 1 %; HCT 41.8 % (34.0-46.0); HDW 2.92; HGB 13.7 gm/dL (11.4-16.0); Luc # (Auto) 0.04; Luc % (Auto) 1; Lymphocytes % (A) 17 %; MCH 30.4 pg (25.0-35.0); MCHC 32.9 g/dL (31.0-37.0); MCV 92.3 fL (80.0-100.0); Mean Platelet Volume 7.3; Monocytes # (A) 0.2 k/uL (0-1.0); Monocytes % (A) 3 %; Neutrophils # (A) 4.4 k/uL (1.3-7.7); Neutrophils % (A) 78 %; RBC 4.52 m/uL (3.80-5.40); RDW 13.9 % (11.5-15.5); WBC 5.6 k/uL (3.8-10.6)
[2016-11-24 08:27] LABS: Appearance,Urine Clear (Clear); Bilirubin,Urine Negative (Negative); Glucose,Urine (UA) 4+ (Negative); Ketones,Urine Negative (Negative); Leukocyte Esterase,Urine Negative (Negative); Nitrite,Urine Negative (Negative); Protein,Urine Negative (Negative); Specific Gravity,Urine 1.028 (1.001-1.035); UA Billing (MACRO vs. MICRO) CHEM; Urobilinogen,Urine <2.0 mg/dL (<2.0)
[2016-11-24 08:41] LABS: ALT 31 U/L (9-52); AST 32 U/L (14-36); Alkaline Phosphatase 110 U/L (38-126); Amylase 58 U/L (30-110); Anion Gap 18 mmol/L; Blood Urea Nitrogen 13 mg/dL (7-17); Calcium 10.1 mg/dL (8.4-10.2); Carbon Dioxide 17 mmol/L (22-30); Chloride 107 mmol/L (98-107); Non-African American GFR(MDRD) >60 (>60 ml/min/1.73 sqM); Potassium 4.3 mmol/L (3.5-5.1); Sodium 142 mmol/L (137-145); Total Bilirubin 0.6 mg/dL (0.2-1.3); Total Protein 7.3 g/dL (6.3-8.2); VBG PH 7.37 (7.31-7.41)
[2016-11-24 08:44] LABS: Partial Thromboplastin Time 23.2 sec (22.0-30.0); Prothrombin Time 10.3 sec (9.0-12.0)
[2016-11-24 08:45] LABS: Glucose 563 mg/dL (74-99)
[2016-11-24] MEDS ORDERED: INSULIN REGULAR 100 UNIT/ML VIAL IV ONE (09:04)
[2016-11-24] MEDS ORDERED: NALOXONE 0.4 MG/ML 1 ML VIAL IV PRN (09:24)
[2016-11-24 10:49] LABS: Glucose,Whole Blood 408 mg/dL (75-99)
[2016-11-24] MEDS ORDERED: Magnesium Replacement Protocol 1 EACH MISC MISCELLANE PRN (12:09)
[2016-11-24] MEDS ORDERED: Potassium Replacement Protocol 1 EACH MISC MISCELLANE PRN (12:09)
[2016-11-24] MEDS ORDERED: INSULIN REGULAR BOLUS (FROM DRIP BAG) IV ONE (12:09)
[2016-11-24] MEDS ORDERED: INSULIN REGULAR 100 UNIT in SODIUM CHLORIDE 0.9% 100 ML IV SCH ×4 (12:15)
[2016-11-24] MEDS: HYDROmorphone 1 MG/ML 1 ML SYRINGE IV PRN ×4 (12:17→22:56)
[2016-11-24] MEDS ORDERED: INSULIN LISPRO (humaLOG) 300 UNIT/3 ML VIAL SQ SCH ×2 (12:30→17:30)
[2016-11-24] MEDS: SODIUM CHLORIDE 0.9% 1,000 ML IV SCH ×6 (12:44→19:50)
--- NOTE | 2016-11-24 12:51 | P.HPIM ---
History of Present Illness H&P Date: 11/24/16 This is a 51-year-old female patient of [facility] with previous medical history significant for familial dyslipidemia, recurrent pancreatitis and chroni abdominal pain, thought to be due to hypertriglyceridemia, hypertension and hypertensive cardiovascular disease, diabetes mellitus type 2 with recurrent diabetic ketoacidosis as well as episodes of hyperosmolar nonketotic hyperglycemia, hypertensive cardiovascular disease, chronic pain syndrome, gastroparesis, gastroesophageal reflux disease, diabetic polyneuropathy. She presented to [facility] emergency center 8:00 in the morning after 2 hours of increased abdominal pain associated with the nausea and diarrhea patient stated that she started not feeling well yesterday in the evening and she did not take Lantus however she took 33 units of Lantus instead and the she checked her blood glucose level that was quite high greater than 600 since her glucometer goes to 600, so she ended up coming to the ER she was found to have a blood glucose level of greater than 600 and she did receive for a liter of normal saline, and she was started on insulin drip, her ketone levels are negative, however lactic acid was high at 8 subsequently after fluid resuscitation dropped down to 7.1, patient ended up admitted to the hospital for hyperosmolar nonketotic hyperglycemia she was placed on insulin drip along with the rest of her medication she was admitted to the hospital for further evaluation and recommendation. Review of Systems Constitutional: Reports chronic pain, Reports fatigue, Reports malaise, Reports weakness, Denies anorexia, Denies chronic headaches, Denies lethargy, Denies weight gain, Denies weight loss Eyes: bilateral blurred vision, denies bulging eye, denies decreased vision, denies diplopia, denies discharge Ears: deny: decreased hearing Ears, nose, mouth and throat: Denies dysphagia, Denies epistaxis, Denies neck lump, Denies sore throat, Denies vertigo Cardiovascular: Reports high blood pressure, Reports irregular heart beat, Denies chest pain, Denies decreased exercise tolerance, Denies rapid heart beat , Denies shortness of breath, Denies syncope Respiratory: Denies congestion, Denies cough, Denies cough with sputum, Denies home oxygen, Denies pleurisy, Denies sleep apnea, Denies snoring, Denies wheezing Gastrointestinal: Reports abdominal pain, Reports bloating, Reports change in bowel habits, Reports diarrhea, Reports dyspepsia, Reports early satiety, Reports indigestion, Reports nausea, Denies melena, Denies vomiting Genitourinary: Denies dysuria, Denies hematuria Musculoskeletal: Denies myalgias Musculoskeletal: absent: ankle pain, ankle stiffness, ankle swelling, elbow pain , elbow stiffness, elbow swelling, foot pain, foot stiffness, foot swelling, hand pain, hand stiffness, hand swelling, hip pain, hip stiffness, hip swelling , knee pain, knee stiffness, knee swelling, shoulder pain, shoulder stiffness, shoulder swelling, wrist pain, wrist stiffness, wrist swelling Integumentary: Denies pruritus, Denies rash Neurological: Denies numbness, Denies weakness Psychiatric: Denies anxiety, Denies depression Endocrine: Denies fatigue, Denies weight change Past Medical History Past Medical History: Coronary Artery Disease (CAD), Diabetes Mellitus, GERD/ Reflux, Hyperlipidemia, Hypertension, Syncope Additional Past Medical History / Comment(s): IDDM typeII, recurrent DKA, episodes of hyperosmolar nonketonic hyperglycemia, hypertensive heart disease, chronic pain syndrome, hypertriglyceridemia, chronic pancreatitis, chronic abdominal pain, gastroparesis, severe GERD, diabetic polyneuropathy mostly in hands and alittle in feet bilaterally, infectious colitis. History of Any Multi-Drug Resistant Organisms: None Reported Past Surgical History: Cholecystectomy Additional Past Surgical History / Comment(s): Biliary stent through an ERCP that was performed at [facility] and stent removed 2007, lap jenn, colonoscopy, ERCP. Past Anesthesia/Blood Transfusion Reactions: No Reported Reaction Additional Past Anesthesia/Blood Transfusion Reaction / Comment(s): Pt has never received blood."CLAUSTERPHOBIA" Past Psychological History: Anxiety, Depression, Panic Disorder, PTSD Smoking Status: Never smoker Past Alcohol Use History: None Reported Past Drug Use History: None Reported - Past Family History Father Family Medical History: No Reported History Additional Family Medical History / Comment(s): Father had severe anxiety and was hospitalized for this at times. Mother Family Medical History: Cancer Additional Family Medical History / Comment(s): Mother of metastatic breast CA at the age of 42yrs. Medications and Allergies Home Medications Medication Instructions Recorded Confirmed Type Lisinopril [Zestril] 20 mg PO DAILY 09/09/13 11/24/16 History HYDROmorphone [Dilaudid] 2 mg PO Q8H PRN 09/17/14 11/24/16 History Multivitamins, Thera [Multivitamin 1 tab PO DAILY 09/17/14 11/24/16 History (formulary)] Atenolol [Tenormin] 100 mg PO DAILY 11/19/14 11/24/16 History Calcium Carb-Vit D 500Mg-200Un 1 tab PO BID 11/19/14 11/24/16 History [Oscal 500+D] Mirtazapine [Remeron] 45 mg PO HS 11/19/14 11/24/16 History Rosuvastatin Calcium [Crestor] 40 mg PO HS 11/19/14 11/24/16 History Insulin Aspart [NovoLOG Flexpen] 26 unit SQ AC-BRKFST 10/14/15 11/24/16 History Insulin Aspart [NovoLOG Flexpen] 26 unit SQ AC-LUNCH 10/14/15 11/24/16 History Insulin Aspart [NovoLOG Flexpen] 36 units SQ AC-SUPPER 10/14/15 11/24/16 History Pancreatic Enzymes Otc(Unknown) 1 cap PO AC-TID 10/14/15 11/24/16 History Cetirizine HCl [Zyrtec] 10 mg PO DAILY 02/04/16 11/24/16 History Niacin 1,000 mg PO HS 02/04/16 11/24/16 History clonazePAM [KlonoPIN] 2 mg PO HS 02/04/16 11/24/16 History Insulin Detemir [Levemir] 66 unit SQ HS 07/21/16 11/24/16 History clonazePAM [KlonoPIN] 1 mg PO QAM 07/21/16 11/24/16 History Allergies Allergy/AdvReac Type Severity Reaction Status Date / Time NSAIDS (Non-Steroidal Allergy Rash/Hives Verified 11/24/16 08:18 Anti-Inflamma Physical Exam Vitals: Vital Signs Temp Pulse Resp BP Pulse Ox 11/24/16 11:08 98.5 F 82 16 138/80 99 11/24/16 10:01 89 16 135/93 96 11/24/16 07:17 98.6 F 84 20 138/89 97 Intake and Output 11/23/16 11/24/16 11/24/16 22:59 06:59 14:59 Other: Weight 64.41 kg Patient Weight 11/25/16 06:59 Weight 64.41 kg - Constitutional General appearance: mild distress - EENT Eyes: anicteric sclerae, EOMI, PERRLA, no ptosis, no scleral icterus, normal appearance ENT: hearing grossly normal, NA/AT, normal oropharynx, no thrush Ears: bilateral: normal - Neck Neck: no lymphadenopathy, normal ROM, no rigidity, no stridor, no thyromegaly Carotids: bilateral: upstroke normal Thyroid: bilateral: normal size - Respiratory Respiratory: bilateral: diminished, negative: dullness, rales, rhonchi, wheezing , prolonged expiration, prolonged inspiration - Cardiovascular Rhythm: regular Heart sounds: normal: S1, S2 Abnormal Heart Sounds: no systolic murmur, no S3 Gallop, no S4 Gallop, no click - Gastrointestinal General gastrointestinal: normal bowel sounds, soft, no splenomegaly, tenderness , no umbilical hernia, no ventral hernia Localized gastrointestinal: tender: diffuse - Integumentary Integumentary: normal, normal turgor - Musculoskeletal Musculoskeletal: strength equal bilaterally - Psychiatric Psychiatric: A&O x's 3, appropriate affect, intact judgment & insight Results CBC & Chem 7: 11/24/16 08:00 11/24/16 08:00 Labs: Abnormal Lab Results - Last 24 Hours (Table) 11/24/16 11/24/16 11/24/16 Range/Units 08:00 08:00 08:00 VBG pCO2 36 L (37-51) mmHg VBG HCO3 20 L (24-28) mmol/L Carbon Dioxide 17 L (22-30) mmol/L Glucose 563 H* (74-99) mg/dL POC Glucose (mg/dL) (75-99) mg/dL Plasma Lactic Acid Dawit 6.5 H* (0.7-2.0) mmol/L Urine Glucose (UA) (Negative) 11/24/16 11/24/16 Range/Units 08:00 10:47 VBG pCO2 (37-51) mmHg VBG HCO3 (24-28) mmol/L Carbon Dioxide (22-30) mmol/L Glucose (74-99) mg/dL POC Glucose (mg/dL) 408 H (75-99) mg/dL Plasma Lactic Acid Dawit (0.7-2.0) mmol/L Urine Glucose (UA) 4+ H (Negative) Thrombosis Risk Factor Assmnt - DVT/VTE Prophylaxis DVT/VTE Prophylaxis: Pharmacologic Prophylaxis ordered, Mechanical Prophylaxis ordered Assessment and Plan Plan: Assessment and plan: 1. Hyperosmolar nonketotic hyperglycemia. IV fluid, insulin drip, monitor the patient was a very closely every hour, and transition the patient to her Levemir once blood sugar with level is in the good range. 2. History of diabetes mellitus type 2, insulin requiring we will transition the patient back to Levemir 66 units at bedtime along with Humalog. 3. Hypertension and hypertensive cardiovascular disease with left ventricular hypertrophy we will continue the patient on atenolol 100 mg orally once every day as well as lisinopril 20 mg orally once every day. 4. Hyperlipidemia continue the patient on Crestor 40 mg orally once every day, fenofibrate 160 mg orally once every day,Niaspan 1000 g orally once every. 5. Diabetic polyneuropathy continue gabapentin 200 mg orally twice every day. 6. Anxiety generalized disorder. Continue Klonopin 2 milligram in the evening and 1 mg in the morning. 7. Depression, recurrent. Continue Zoloft 200 mg orally once every day. 8. Gastroparesis continue Reglan 5 mg before each meal 3 times every day. 9. Chronic pancreatitis continue IV fluid resuscitation as well as current pain management in the form of Dilaudid along with fentanyl patch. 10. GERD continue PPI. 11. DVT. Continue heparin 5000 units subcutaneously every 12 hours. 12. Full code. 13. Admit to inpatient. Estimated length of stay 2 midnights .
[2016-11-24 12:57] LABS: Glucose,Whole Blood 383 mg/dL (75-99)
[2016-11-24 14:36] LABS: Glucose,Whole Blood 208 mg/dL (75-99)
[2016-11-24] MEDS: ONDANSETRON 4 MG/2 ML VIAL IVP PRN ×2 (14:44→22:56)
[2016-11-24] MEDS: D5-0.45% NACL WITH KCL 20MEQ/L 1,000 ML IV SCH ×2 (14:56→21:51)
[2016-11-24 16:33] LABS: Anion Gap 15 mmol/L; Blood Urea Nitrogen 7 mg/dL (7-17); Carbon Dioxide 19 mmol/L (22-30); Chloride 110 mmol/L (98-107); Glucose 195 mg/dL (74-99); Non-African American GFR(MDRD) >60 (>60 ml/min/1.73 sqM); Phosphorous 2.6 mg/dL (2.5-4.5); Potassium 3.3 mmol/L (3.5-5.1); Sodium 144 mmol/L (137-145)
[2016-11-24 16:58] LABS: Glucose,Whole Blood 191 mg/dL (75-99)
[2016-11-24 19:01] LABS: Glucose,Whole Blood 131 mg/dL (75-99)
[2016-11-24 20:06] LABS: Anion Gap 10 mmol/L; Blood Urea Nitrogen 5 mg/dL (7-17); Carbon Dioxide 22 mmol/L (22-30); Chloride 109 mmol/L (98-107); Glucose 110 mg/dL (74-99); Non-African American GFR(MDRD) >60 (>60 ml/min/1.73 sqM); Phosphorous 3.2 mg/dL (2.5-4.5); Potassium 3.1 mmol/L (3.5-5.1); Sodium 141 mmol/L (137-145)
[2016-11-24] MEDS ORDERED: DICYCLOMINE 10 MG CAP PO PRN (20:28)
[2016-11-24] MEDS ORDERED: PROCHLORPERAZINE 10 MG TAB PO PRN (20:28)
[2016-11-24 20:57] LABS: Glucose,Whole Blood 113 mg/dL (75-99)
[2016-11-24] MEDS ORDERED: INSULIN DETEMIR 100 UNIT/ML 10 ML VIAL SQ SCH (21:00)
[2016-11-24] MEDS: GABAPENTIN 100 MG CAP PO SCH (21:11)
[2016-11-24] MEDS: clonazePAM 1 MG TAB PO SCH (21:11)
[2016-11-24] MEDS: ATORVASTATIN 80 MG TAB PO SCH (21:11)
[2016-11-24] MEDS: MIRTAZAPINE 45 MG TABLET PO SCH (21:12)
[2016-11-24] MEDS: INSULIN DETEMIR 100 UNIT/ML 10 ML VIAL SQ SCH (21:19)
[2016-11-24] MEDS: NIACIN TR 500 MG CAPSULE.ER PO SCH (21:20)
[2016-11-24] MEDS: METOCLOPRAMIDE 5 MG TAB PO SCH (21:21)
[2016-11-24] MEDS ORDERED: D5-0.45% NACL WITH KCL 20MEQ/L 1,000 ML IV SCH (22:30)
[2016-11-25] MEDS: SODIUM CHLORIDE 0.9% 1,000 ML IV SCH (00:23)
[2016-11-25] MEDS ORDERED: D5-0.45% NACL WITH KCL 20MEQ/L 1,000 ML IV SCH (00:30)
[2016-11-25] MEDS: HYDROmorphone 1 MG/ML 1 ML SYRINGE IV PRN ×6 (01:47→21:35)
[2016-11-25 05:59] LABS: Glucose,Whole Blood 164 mg/dL (75-99)
[2016-11-25 06:27] LABS: Basophils % (A) 0 %; CH 31.3; Eosinophils # (A) 0.1 k/uL (0-0.7); Eosinophils % (A) 2 %; HCT 38.7 % (34.0-46.0); HGB 12.8 gm/dL (11.4-16.0); Luc # (Auto) 0.14; Luc % (Auto) 2; Lymphocytes # (A) 2.9 k/uL (1.0-4.8); Lymphocytes % (A) 44 %; MCH 30.8 pg (25.0-35.0); MCHC 33.2 g/dL (31.0-37.0); MCV 92.7 fL (80.0-100.0); Mean Platelet Volume 7.3; Monocytes # (A) 0.3 k/uL (0-1.0); Monocytes % (A) 5 %; Neutrophils % (A) 47 %; RBC 4.17 m/uL (3.80-5.40); RDW 13.7 % (11.5-15.5); WBC 6.5 k/uL (3.8-10.6); WBC (Perox) 6.13
[2016-11-25 06:37] LABS: Anion Gap 9 mmol/L; Blood Urea Nitrogen 4 mg/dL (7-17); Calcium 9.1 mg/dL (8.4-10.2); Carbon Dioxide 21 mmol/L (22-30); Chloride 111 mmol/L (98-107); Glucose 174 mg/dL (74-99); Non-African American GFR(MDRD) >60 (>60 ml/min/1.73 sqM); Potassium 3.9 mmol/L (3.5-5.1); Sodium 141 mmol/L (137-145)
[2016-11-25] MEDS: METOCLOPRAMIDE 5 MG TAB PO SCH ×4 (06:49→21:34)
[2016-11-25] MEDS: INSULIN LISPRO (humaLOG) 300 UNIT/3 ML VIAL SQ SCH ×6 (07:01→21:40)
[2016-11-25] MEDS ORDERED: INSULIN LISPRO (humaLOG) 300 UNIT/3 ML VIAL SQ SCH ×2 (07:30→17:30)
[2016-11-25] MEDS ORDERED: [UNRECOGNIZED DRUG - OTHER] PO SCH (07:30)
[2016-11-25] MEDS: clonazePAM 1 MG TAB PO SCH ×2 (09:02→21:33)
[2016-11-25] MEDS: GABAPENTIN 100 MG CAP PO SCH ×2 (09:02→21:33)
[2016-11-25] MEDS: ONDANSETRON 4 MG/2 ML VIAL IVP PRN ×2 (09:02→18:38)
[2016-11-25] MEDS: LORATADINE 10 MG TAB PO SCH (09:03)
[2016-11-25] MEDS: ATENOLOL 50 MG TAB PO SCH (09:03)
[2016-11-25] MEDS: SERTRALINE 100 MG TAB PO SCH (09:03)
[2016-11-25] MEDS: LISINOPRIL 20 MG TAB PO SCH (09:03)
[2016-11-25 11:42] LABS: Glucose,Whole Blood 134 mg/dL (75-99)
--- NOTE | 2016-11-25 12:01 | P.PN ---
Subjective This is a 51-year-old female patient of [facility] [place] with previous medical history significant for familial dyslipidemia, recurrent pancreatitis and chroni abdominal pain, thought to be due to hypertriglyceridemia, hypertension and hypertensive cardiovascular disease, diabetes mellitus type 2 with recurrent diabetic ketoacidosis as well as episodes of hyperosmolar nonketotic hyperglycemia, hypertensive cardiovascular disease, chronic pain syndrome, gastroparesis, gastroesophageal reflux disease, diabetic polyneuropathy. She presented to [facility] emergency center 8:00 in the morning after 2 hours of increased abdominal pain associated with the nausea and diarrhea patient stated that she started not feeling well yesterday in the evening and she did not take Lantus however she took 33 units of Lantus instead and the she checked her blood glucose level that was quite high greater than 600 since her glucometer goes to 600, so she ended up coming to the ER she was found to have a blood glucose level of greater than 600 and she did receive for a liter of normal saline, and she was started on insulin drip, her ketone levels are negative, however lactic acid was high at 8 subsequently after fluid resuscitation dropped down to 7.1, patient ended up admitted to the hospital for hyperosmolar nonketotic hyperglycemia she was placed on insulin drip along with the rest of her medication she was admitted to the hospital for further evaluation and recommendation. 11/25: Blood sugars have been much improved and running in the 100s. Patient was started back on her home Lantus dose last evening along with Humalog scheduled with her meals. Diet will be advanced to full liquids for her next meal. No new complaints today. Anticipate discharge home tomorrow. Patient will be transferred to the [facility] floor today Objective - Vital Signs Vital signs: Vital Signs Temp 97.8 F 11/24/16 19:39 Pulse 94 11/25/16 03:15 Resp 16 11/25/16 03:14 BP 110/64 11/25/16 03:14 Pulse Ox 98 11/25/16 03:14 Intake & Output 11/24/16 11/25/16 11/25/16 18:59 06:59 18:59 Intake Total 800 Output Total 2200 Balance -1400 Weight 64.41 kg 67.5 kg Intake: Intake, IV Titration 800 Amount D5-0.45% NaCl with KCl 600 20Meq/l 1,000 ml @ 50 mls /hr IV .Q20H ZACK Rx#: [id number] D5-0.45% NaCl with KCl 200 20Meq/l 1,000 ml @ 50 mls /hr IV .Q20H ZACK Rx#: [id number] Output: Urine 2200 Other: # Voids 2 - Exam General appearance: mild distress - EENT Eyes: anicteric sclerae, EOMI, PERRLA, no ptosis, no scleral icterus, normal appearance ENT: hearing grossly normal, NA/AT, normal oropharynx, no thrush Ears: bilateral: normal - Neck Neck: no lymphadenopathy, normal ROM, no rigidity, no stridor, no thyromegaly Carotids: bilateral: upstroke normal Thyroid: bilateral: normal size - Respiratory Respiratory: bilateral: diminished, negative: dullness, rales, rhonchi, wheezing , prolonged expiration, prolonged inspiration - Cardiovascular Rhythm: regular Heart sounds: normal: S1, S2 Abnormal Heart Sounds: no systolic murmur, no S3 Gallop, no S4 Gallop, no click - Gastrointestinal General gastrointestinal: normal bowel sounds, soft, no splenomegaly, tenderness , no umbilical hernia, no ventral hernia Localized gastrointestinal: tender: diffuse - Integumentary Integumentary: normal, normal turgor - Musculoskeletal Musculoskeletal: strength equal bilaterally - Psychiatric Psychiatric: A&O x's 3, appropriate affect, intact judgment & insight - Labs CBC & Chem 7: 11/25/16 05:33 11/25/16 05:33 Labs: Abnormal Lab Results - Last 24 Hours (Table) 11/24/16 11/24/16 11/24/16 Range/Units 08:00 08:00 08:00 Plt Count (150-450) k/uL VBG pCO2 36 L (37-51) mmHg VBG HCO3 20 L (24-28) mmol/L Potassium (3.5-5.1) mmol/L Chloride (98-107) mmol/L Carbon Dioxide 17 L (22-30) mmol/L BUN (7-17) mg/dL Creatinine (0.52-1.04) mg/dL Glucose 563 H* (74-99) mg/dL POC Glucose (mg/dL) (75-99) mg/dL Hemoglobin A1c (4.2-6.1) % Plasma Lactic Acid Adwit 6.5 H* (0.7-2.0) mmol/L Urine Glucose (UA) (Negative) 11/24/16 11/24/16 11/24/16 Range/Units 08:00 08:00 10:47 Plt Count (150-450) k/uL VBG pCO2 (37-51) mmHg VBG HCO3 (24-28) mmol/L Potassium (3.5-5.1) mmol/L Chloride (98-107) mmol/L Carbon Dioxide (22-30) mmol/L BUN (7-17) mg/dL Creatinine (0.52-1.04) mg/dL Glucose (74-99) mg/dL POC Glucose (mg/dL) 408 H (75-99) mg/dL Hemoglobin A1c 9.0 H (4.2-6.1) % Plasma Lactic Acid Dawit (0.7-2.0) mmol/L Urine Glucose (UA) 4+ H (Negative) 11/24/16 11/24/16 11/24/16 Range/Units 11:55 12:52 14:25 Plt Count (150-450) k/uL VBG pCO2 (37-51) mmHg VBG HCO3 (24-28) mmol/L Potassium (3.5-5.1) mmol/L Chloride (98-107) mmol/L Carbon Dioxide (22-30) mmol/L BUN (7-17) mg/dL Creatinine (0.52-1.04) mg/dL Glucose (74-99) mg/dL POC Glucose (mg/dL) 383 H 208 H (75-99) mg/dL Hemoglobin A1c (4.2-6.1) % Plasma Lactic Acid Dawit 5.9 H* (0.7-2.0) mmol/L Urine Glucose (UA) (Negative) 11/24/16 11/24/16 11/24/16 Range/Units 15:58 16:41 19:00 Plt Count (150-450) k/uL VBG pCO2 (37-51) mmHg VBG HCO3 (24-28) mmol/L Potassium 3.3 L (3.5-5.1) mmol/L Chloride 110 H (98-107) mmol/L Carbon Dioxide 19 L (22-30) mmol/L BUN (7-17) mg/dL Creatinine 0.50 L (0.52-1.04) mg/dL Glucose 195 H (74-99) mg/dL POC Glucose (mg/dL) 191 H 131 H (75-99) mg/dL Hemoglobin A1c (4.2-6.1) % Plasma Lactic Acid Dawit (0.7-2.0) mmol/L Urine Glucose (UA) (Negative) 11/24/16 11/24/16 11/25/16 Range/Units 19:25 20:55 05:33 Plt Count 123 L (150-450) k/uL VBG pCO2 (37-51) mmHg VBG HCO3 (24-28) mmol/L Potassium 3.1 L (3.5-5.1) mmol/L Chloride 109 H (98-107) mmol/L Carbon Dioxide (22-30) mmol/L BUN 5 L (7-17) mg/dL Creatinine (0.52-1.04) mg/dL Glucose 110 H (74-99) mg/dL POC Glucose (mg/dL) 113 H (75-99) mg/dL Hemoglobin A1c (4.2-6.1) % Plasma Lactic Acid Dawit (0.7-2.0) mmol/L Urine Glucose (UA) (Negative) 11/25/16 11/25/16 Range/Units 05:33 05:57 Plt Count (150-450) k/uL VBG pCO2 (37-51) mmHg VBG HCO3 (24-28) mmol/L Potassium (3.5-5.1) mmol/L Chloride 111 H (98-107) mmol/L Carbon Dioxide 21 L (22-30) mmol/L BUN 4 L (7-17) mg/dL Creatinine (0.52-1.04) mg/dL Glucose 174 H (74-99) mg/dL POC Glucose (mg/dL) 164 H (75-99) mg/dL Hemoglobin A1c (4.2-6.1) % Plasma Lactic Acid Dawit (0.7-2.0) mmol/L Urine Glucose (UA) (Negative) Assessment and Plan Plan: 1. Hyperosmolar nonketotic hyperglycemia. IV fluid, insulin drip, monitor the patient was a very closely every hour, and transition the patient to her Levemir once blood sugar with level is in the good range. 2. History of diabetes mellitus type 2, insulin requiring we will transition the patient back to Levemir 66 units at bedtime along with Humalog. 3. Hypertension and hypertensive cardiovascular disease with left ventricular hypertrophy we will continue the patient on atenolol 100 mg orally once every day as well as lisinopril 20 mg orally once every day. 4. Hyperlipidemia continue the patient on Crestor 40 mg orally once every day, fenofibrate 160 mg orally once every day,Niaspan 1000 g orally once every. 5. Diabetic polyneuropathy continue gabapentin 200 mg orally twice every day. 6. Anxiety generalized disorder. Continue Klonopin 2 milligram in the evening and 1 mg in the morning. 7. Depression, recurrent. Continue Zoloft 200 mg orally once every day. 8. Gastroparesis continue Reglan 5 mg before each meal 3 times every day. 9. Chronic pancreatitis continue IV fluid resuscitation as well as current pain management in the form of Dilaudid along with fentanyl patch. 10. GERD continue PPI. 11. DVT. Continue heparin 5000 units subcutaneously every 12 hours. 12. Full code. Discarge plan: Return home Impression and plan of care have been directed as dictated by the signing physician. Amanda Kumar nurse practitioner acting as scribe for signing physician.
[2016-11-25] MEDS: MULTIVITAMINS, THERA 1 EACH TAB PO SCH (12:12)
[2016-11-25 13:18] VITALS: BMI 25.5
[2016-11-25 16:51] VITALS: RESP 16
[2016-11-25 16:53] LABS: Glucose,Whole Blood 87 mg/dL (75-99)
[2016-11-25] MEDS ORDERED: FENOFIBRATE 160 MG TAB PO SCH (21:00)
[2016-11-25 21:30] LABS: Glucose,Whole Blood 80 mg/dL (75-99)
[2016-11-25] MEDS: CALCIUM CARB-VIT D 500MG-200UN 1 EACH TAB PO SCH (21:33)
[2016-11-25] MEDS: FAMOTIDINE 20 MG TAB PO SCH (21:33)
[2016-11-25] MEDS: ATORVASTATIN 80 MG TAB PO SCH (21:33)
[2016-11-25] MEDS: INSULIN DETEMIR 100 UNIT/ML 10 ML VIAL SQ SCH (21:34)
[2016-11-25] MEDS: NIACIN TR 500 MG CAPSULE.ER PO SCH (21:34)
[2016-11-25] MEDS: MIRTAZAPINE 45 MG TABLET PO SCH (21:34)
[2016-11-26] MEDS: HYDROmorphone 1 MG/ML 1 ML SYRINGE IV PRN ×4 (03:55→13:17)
[2016-11-26 04:02] LABS: Glucose,Whole Blood 143 mg/dL (75-99)
[2016-11-26 06:10] LABS: Glucose,Whole Blood 112 mg/dL (75-99)
[2016-11-26] MEDS: INSULIN LISPRO (humaLOG) 300 UNIT/3 ML VIAL SQ SCH ×4 (06:48→12:16)
[2016-11-26] MEDS: METOCLOPRAMIDE 5 MG TAB PO SCH ×2 (07:10→12:16)
[2016-11-26] MEDS: CALCIUM CARB-VIT D 500MG-200UN 1 EACH TAB PO SCH (08:43)
[2016-11-26] MEDS: ATENOLOL 50 MG TAB PO SCH (08:43)
[2016-11-26] MEDS: LORATADINE 10 MG TAB PO SCH (08:44)
[2016-11-26] MEDS: FAMOTIDINE 20 MG TAB PO SCH (08:44)
[2016-11-26] MEDS: GABAPENTIN 100 MG CAP PO SCH (08:44)
[2016-11-26] MEDS: SERTRALINE 100 MG TAB PO SCH (08:44)
[2016-11-26] MEDS: LISINOPRIL 20 MG TAB PO SCH (10:18)
[2016-11-26] MEDS: clonazePAM 1 MG TAB PO SCH (10:18)
--- NOTE | 2016-11-26 11:21 | P.DS ---
Providers Date of admission: 11/24/16 09:25 Expected date of discharge: 11/26/16 Attending physician: Mike Borges Primary care physician: Mike Borges [facility] Course: This is a 51-year-old female patient of mine with previous medical history significant for familial dyslipidemia, recurrent pancreatitis and chroni abdominal pain, thought to be due to hypertriglyceridemia, hypertension and hypertensive cardiovascular disease, diabetes mellitus type 2 with recurrent diabetic ketoacidosis as well as episodes of hyperosmolar nonketotic hyperglycemia, hypertensive cardiovascular disease, chronic pain syndrome, gastroparesis, gastroesophageal reflux disease, diabetic polyneuropathy. She presented to [facility] emergency center 8:00 in the morning after 2 hours of increased abdominal pain associated with the nausea and diarrhea patient stated that she started not feeling well yesterday in the evening and she did not take Lantus however she took 33 units of Lantus instead and the she checked her blood glucose level that was quite high greater than 600 since her glucometer goes to 600, so she ended up coming to the ER she was found to have a blood glucose level of greater than 600 and she did receive for a liter of normal saline, and she was started on insulin drip, her ketone levels are negative, however lactic acid was high at 8 subsequently after fluid resuscitation dropped down to 7.1, patient ended up admitted to the hospital for hyperosmolar nonketotic hyperglycemia she was placed on insulin drip along with the rest of her medication she was admitted to the hospital for further evaluation and recommendation. 11/25: Blood sugars have been much improved and running in the 100s. Patient was started back on her home Lantus dose last evening along with Humalog scheduled with her meals. Diet will be advanced to full liquids for her next meal. No new complaints today. Anticipate discharge home tomorrow. Patient will be transferred to the [facility] floor today 11/26: Blood sugars remain stable. Patient is able to tolerate diet with no nausea or vomiting. Patient will be discharged home today in stable condition. Discharge diagnoses: 1. Hyperosmolar nonketotic hyperglycemia. 2. History of diabetes mellitus type 2, insulin requiring 3. Hypertension and hypertensive cardiovascular disease with left ventricular hypertrophy 4. Hyperlipidemia 5. Diabetic polyneuropathy 6. Anxiety generalized disorder 7. Depression, recurrent 8. Gastroparesis 9. Chronic pancreatitis 10. GERD Discarge plan: Return home Impression and plan of care have been directed as dictated by the signing physician. Amanda Kumar nurse practitioner acting as scribe for signing physician. Patient Condition at Discharge: Good Plan - Discharge Summary New Discharge Prescriptions: Continue Lisinopril [Zestril] 20 mg PO DAILY Fenofibrate [Lofibra] 160 mg PO HS tab Gabapentin [Neurontin] 200 mg PO BID cap Metoclopramide [Reglan] 5 mg PO ACHS tab Prochlorperazine [Compazine] 10 mg PO TID PRN #0 tab PRN Reason: Nausea Sertraline [Zoloft] 200 mg PO DAILY tab HYDROmorphone [Dilaudid] 2 mg PO Q8H PRN PRN Reason: Pain Multivitamins, Thera [Multivitamin (formulary)] 1 tab PO DAILY Calcium Carb-Vit D 500Mg-200Un [Oscal 500+D] 1 tab PO BID Atenolol [Tenormin] 100 mg PO DAILY Mirtazapine [Remeron] 45 mg PO HS Rosuvastatin Calcium [Crestor] 40 mg PO HS fentaNYL 25MCG/HR PATCH [Duragesic 25MCG/HR] 1 patch TRANSDERM Q72H #0 Insulin Aspart [NovoLOG Flexpen] 36 units SQ AC-SUPPER Insulin Aspart [NovoLOG Flexpen] 26 unit SQ AC-BRKFST Insulin Aspart [NovoLOG Flexpen] 26 unit SQ AC-LUNCH Pancreatic Enzymes Otc(Unknown) 1 cap PO AC-TID Cetirizine HCl [Zyrtec] 10 mg PO DAILY Niacin 1,000 mg PO HS clonazePAM [KlonoPIN] 2 mg PO HS Dicyclomine [Bentyl] 10 mg PO TID PRN #90 cap PRN Reason: Diarrhea Famotidine [Pepcid] 20 mg PO BID #0 Insulin Detemir [Levemir] 66 unit SQ HS Ondansetron Odt [Zofran ODT] 4 mg PO Q8HR PRN #20 tab PRN Reason: Nausea clonazePAM [KlonoPIN] 1 mg PO QAM Discharge Medication List Lisinopril [Zestril] 20 mg PO DAILY 09/09/13 [History] Fenofibrate [Lofibra] 160 mg PO HS tab 08/09/14 [Rx] Gabapentin [Neurontin] 200 mg PO BID cap 08/09/14 [Rx] Metoclopramide [Reglan] 5 mg PO ACHS tab 08/09/14 [Rx] Prochlorperazine [Compazine] 10 mg PO TID PRN #0 tab 08/09/14 [Rx] Sertraline [Zoloft] 200 mg PO DAILY tab 08/09/14 [Rx] HYDROmorphone [Dilaudid] 2 mg PO Q8H PRN 09/17/14 [History] Multivitamins, Thera [Multivitamin (formulary)] 1 tab PO DAILY 09/17/14 [History ] Atenolol [Tenormin] 100 mg PO DAILY 11/19/14 [History] Calcium Carb-Vit D 500Mg-200Un [Oscal 500+D] 1 tab PO BID 11/19/14 [History] Mirtazapine [Remeron] 45 mg PO HS 11/19/14 [History] Rosuvastatin Calcium [Crestor] 40 mg PO HS 11/19/14 [History] fentaNYL 25MCG/HR PATCH [Duragesic 25MCG/HR] 1 patch TRANSDERM Q72H #0 [Rx] Insulin Aspart [NovoLOG Flexpen] 26 unit SQ AC-BRKFST 10/14/15 [History] Insulin Aspart [NovoLOG Flexpen] 26 unit SQ AC-LUNCH 10/14/15 [History] Insulin Aspart [NovoLOG Flexpen] 36 units SQ AC-SUPPER 10/14/15 [History] Pancreatic Enzymes Otc(Unknown) 1 cap PO AC-TID 10/14/15 [History] Cetirizine HCl [Zyrtec] 10 mg PO DAILY 02/04/16 [History] Niacin 1,000 mg PO HS 02/04/16 [History] clonazePAM [KlonoPIN] 2 mg PO HS 02/04/16 [History] Dicyclomine [Bentyl] 10 mg PO TID PRN #90 cap 03/22/16 [Rx] Famotidine [Pepcid] 20 mg PO BID #0 03/22/16 [Rx] Insulin Detemir [Levemir] 66 unit SQ HS 07/21/16 [History] Ondansetron Odt [Zofran ODT] 4 mg PO Q8HR PRN #20 tab 07/21/16 [Rx] clonazePAM [KlonoPIN] 1 mg PO QAM 07/21/16 [History] Follow up Appointment(s)/Referral(s): Mike Borges MD [Primary Care Provider] - 1 Week Discharge Disposition: HOME SELF-CARE
[2016-11-26 11:54] LABS: Glucose,Whole Blood 141 mg/dL (75-99)
[2016-11-26] MEDS: MULTIVITAMINS, THERA 1 EACH TAB PO SCH (12:16)
[2016-11-26 13:27] VITALS: BP 109/80; PULSE 87; TEMP 100.2
== END 2016-11-26 13:46 | disposition home or self-care (01) | DRG 638 ==
LOC: EC 07:11 → 6SEL 09:25
PROVIDERS: ADMIT Internal Medicine; ATTEND Internal Medicine
DX: E11.65 Type 2 diabetes mellitus with hyperglycemia (principal); F33.9 Major depressive disorder, recurrent, unspecified; E87.2 Acidosis; K86.1 Other chronic pancreatitis; I11.9 Hypertensive heart disease without heart failure; K31.84 Gastroparesis; E11.42 Type 2 diabetes mellitus with diabetic polyneuropathy; E78.1 Pure hyperglyceridemia; E78.5 Hyperlipidemia, unspecified; F41.0 Panic disorder [episodic paroxysmal anxiety]; F41.1 Generalized anxiety disorder; F43.10 Post-traumatic stress disorder, unspecified; G89.4 Chronic pain syndrome; I25.10 Atherosclerotic heart disease of native coronary artery without angina pectoris; K21.9 Gastro-esophageal reflux disease without esophagitis; E11.43 Type 2 diabetes mellitus with diabetic autonomic (poly)neuropathy; Z79.4 Long term (current) use of insulin; Z79.899 Other long term (current) drug therapy; Z88.6 Allergy status to analgesic agent
CPT/HCPCS: 36415; 80048; 80051; 80053; 81003; 82150; 82565; 82803; 82947; 83036; 83605; 83690; 84100; 84484; 84520; 85025; 85610; 85730; 96361; 96374; 96375; 96376; 99285

== ENCOUNTER 2017-01-05 03:15 | Inpatient (IN) | payer MEDICARE ==
[2017-01-05] MEDS ORDERED: ONDANSETRON 4 MG/2 ML VIAL IVP STA (03:47)
[2017-01-05] MEDS ORDERED: SODIUM CHLORIDE 0.9% 1,000 ML IV STA ×2 (03:47→04:21)
[2017-01-05] MEDS ORDERED: MORPHINE SULFATE 4 MG/ML SYRINGE IV STA (03:47)
--- NOTE | 2017-01-05 03:51 | ED ---
General Adult HPI - General Chief complaint: Abdominal Pain Stated complaint: Blood Sugar Complications Time Seen by Provider: 01/05/17 03:46 Source: patient, RN notes reviewed, old records reviewed Mode of arrival: ambulatory Limitations: no limitations - History of Present Illness Initial comments: This is a 31-year-old female and is emergency room for evaluation. Patient was [facility] reevaluation of bowel pain weakness nausea. Patient denies fever no vomiting. Patient states no recent injuries no chest pain no shortness of breath. No change in medications. No dysuria or vomiting or diarrhea. - Related Data Home Medications Medication Instructions Recorded Confirmed Lisinopril [Zestril] 20 mg PO DAILY 09/09/13 01/05/17 HYDROmorphone [Dilaudid] 2 mg PO Q8H PRN 09/17/14 01/05/17 Multivitamins, Thera [Multivitamin 1 tab PO DAILY 09/17/14 01/05/17 (formulary)] Atenolol [Tenormin] 100 mg PO DAILY 11/19/14 01/05/17 Calcium Carb-Vit D 500Mg-200Un 1 tab PO BID 11/19/14 01/05/17 [Oscal 500+D] Mirtazapine [Remeron] 45 mg PO HS 11/19/14 01/05/17 Rosuvastatin Calcium [Crestor] 40 mg PO HS 11/19/14 01/05/17 Insulin Aspart [NovoLOG Flexpen] 26 unit SQ AC-BRKFST 10/14/15 01/05/17 Insulin Aspart [NovoLOG Flexpen] 26 unit SQ AC-LUNCH 10/14/15 01/05/17 Insulin Aspart [NovoLOG Flexpen] 36 units SQ AC-SUPPER 10/14/15 01/05/17 Pancreatic Enzymes Otc(Unknown) 1 cap PO AC-TID 10/14/15 01/05/17 Cetirizine HCl [Zyrtec] 10 mg PO DAILY 02/04/16 01/05/17 Niacin 1,000 mg PO HS 02/04/16 01/05/17 clonazePAM [KlonoPIN] 2 mg PO HS 02/04/16 01/05/17 Insulin Detemir [Levemir] 66 unit SQ HS 07/21/16 01/05/17 clonazePAM [KlonoPIN] 1 mg PO QAM 07/21/16 01/05/17 Previous Rx's Medication Instructions Recorded Fenofibrate [Lofibra] 160 mg PO HS tab 08/09/14 Gabapentin [Neurontin] 200 mg PO BID cap 08/09/14 Metoclopramide [Reglan] 5 mg PO ACHS tab 08/09/14 Prochlorperazine [Compazine] 10 mg PO TID PRN #0 tab 08/09/14 Sertraline [Zoloft] 200 mg PO DAILY tab 08/09/14 fentaNYL 25MCG/HR PATCH [Duragesic 1 patch TRANSDERM Q72H #0 07/10/15 25MCG/HR] Dicyclomine [Bentyl] 10 mg PO TID PRN #90 cap 03/22/16 Famotidine [Pepcid] 20 mg PO BID #0 03/22/16 Ondansetron Odt [Zofran ODT] 4 mg PO Q8HR PRN #20 tab 07/21/16 Allergies Allergy/AdvReac Type Severity Reaction Status Date / Time NSAIDS (Non-Steroidal Allergy Rash/Hives Verified 11/24/16 08:18 Anti-Inflamma Review of Systems ROS Statement: Those systems with pertinent positive or pertinent negative responses have been documented in the HPI. ROS Other: All systems not noted in ROS Statement are negative. Past Medical History Past Medical History: Coronary Artery Disease (CAD), Diabetes Mellitus, GERD/ Reflux, Hyperlipidemia, Hypertension, Syncope Additional Past Medical History / Comment(s): IDDM type II, recurrent DKA, episodes of hyperosmolar nonketonic hyperglycemia, hypertensive heart disease, chronic pain syndrome, hypertriglyceridemia, chronic pancreatitis, chronic abdominal pain, gastroparesis, severe GERD, diabetic polyneuropathy mostly in hands and alittle in feet bilaterally, infectious colitis. History of Any Multi-Drug Resistant Organisms: None Reported Past Surgical History: Cholecystectomy Additional Past Surgical History / Comment(s): Biliary stent through an ERCP that was performed at [facility] and stent removed 2007, lap jenn, colonoscopy, ERCP. Past Anesthesia/Blood Transfusion Reactions: No Reported Reaction Additional Past Anesthesia/Blood Transfusion Reaction / Comment(s): Pt has never received blood."CLAUSTERPHOBIA" Past Psychological History: Anxiety, Depression, Panic Disorder, PTSD Smoking Status: Never smoker - Past Family History Father Family Medical History: No Reported History Additional Family Medical History / Comment(s): Father had severe anxiety and was hospitalized for this at times. Mother Family Medical History: Cancer Additional Family Medical History / Comment(s): Mother of metastatic breast CA at the age of 42yrs. General Exam Limitations: no limitations General appearance: alert, in no apparent distress Head exam: Present: atraumatic, normocephalic, normal inspection Eye exam: Present: normal appearance, PERRL, EOMI. Absent: scleral icterus, conjunctival injection, periorbital swelling ENT exam: Present: normal exam, mucous membranes moist Neck exam: Present: normal inspection. Absent: tenderness, meningismus, lymphadenopathy Respiratory exam: Present: normal lung sounds bilaterally. Absent: respiratory distress, wheezes, rales, rhonchi, stridor Cardiovascular Exam: Present: regular rate, normal rhythm, normal heart sounds. Absent: systolic murmur, diastolic murmur, rubs, gallop, clicks GI/Abdominal exam: Present: soft, normal bowel sounds. Absent: distended, tenderness, guarding, rebound, rigid Extremities exam: Present: normal inspection, full ROM, normal capillary refill. Absent: tenderness, pedal edema, joint swelling, calf tenderness Back exam: Present: normal inspection Neurological exam: Present: alert, oriented X3, CN II-XII intact Psychiatric exam: Present: normal affect, normal mood Skin exam: Present: warm, dry, intact, normal color. Absent: rash Course Vital Signs 01/05/17 01/05/17 03:19 06:08 Temperature 97.5 F L Pulse Rate 116 H 99 Respiratory 18 17 Rate Blood Pressure 141/88 126/75 O2 Sat by Pulse 95 96 Oximetry - Reevaluation(s) Reevaluation #1: 01/05/17 06:55 Patient's nausea vomiting, not feeling well, weak EKG Findings - EKG Comments: EKG Findings:: EKG shows normal sinus rhythm rate of 96, NE 136, QRS 84, QTC 434 Medical Decision Making - Medical Decision Making 51 female at ER for evaluation severe nausea vomiting diarrhea weakness elevated blood sugar, patient be admitted for rehydration, severe lactic acidosis. Severe dehydration - Lab Data Result diagrams: 01/05/17 04:01 01/05/17 04:01 Lab Results 09/20/17 09/20/17 09/20/17 Range/Units 03:48 04:01 04:01 WBC (3.8-10.6) k/uL RBC (3.80-5.40) m/uL Hgb (11.4-16.0) gm/dL Hct (34.0-46.0) % MCV (80.0-100.0) fL MCH (25.0-35.0) pg MCHC (31.0-37.0) g/dL RDW (11.5-15.5) % Plt Count (150-450) k/uL Neutrophils % % Lymphocytes % % Monocytes % % Eosinophils % % Basophils % % Neutrophils # (1.3-7.7) k/uL Lymphocytes # (1.0-4.8) k/uL Monocytes # (0-1.0) k/uL Eosinophils # (0-0.7) k/uL Basophils # (0-0.2) k/uL PT (9.0-12.0) sec INR (<1.2) APTT (22.0-30.0) sec Sodium 140 (137-145) mmol/L Potassium 4.1 (3.5-5.1) mmol/L Chloride 105 (98-107) mmol/L Carbon Dioxide 14 L (22-30) mmol/L Anion Gap 21 mmol/L BUN 11 (7-17) mg/dL Creatinine 0.60 (0.52-1.04) mg/dL Est GFR (MDRD) Af Amer >60 (>60 ml/min/1.73 sqM) Est GFR (MDRD) Non-Af >60 (>60 ml/min/1.73 sqM) Glucose 627 H* (74-99) mg/dL POC Glucose (mg/dL) 557 H (75-99) mg/dL POC Glu Finance Controller ID Guerda Tong Plasma Lactic Acid Dawit (0.7-2.0) mmol/L Calcium 10.1 (8.4-10.2) mg/dL Phosphorus 3.7 (2.5-4.5) mg/dL Magnesium 1.9 (1.6-2.3) mg/dL Total Bilirubin 0.5 (0.2-1.3) mg/dL AST 30 (14-36) U/L ALT 29 (9-52) U/L Alkaline Phosphatase 139 H (38-126) U/L Total Creatine Kinase 156 H (30-135) U/L CK-MB (CK-2) 2.0 (0.0-2.4) ng/mL CK-MB (CK-2) Rel Index 1.3 Troponin I <0.012 (0.000-0.034) ng/mL Total Protein 7.4 (6.3-8.2) g/dL Albumin 4.8 (3.5-5.0) g/dL Urine Color Urine Appearance (Clear) Urine pH (5.0-8.0) Ur Specific [place] (1.001-1.035) Urine Protein (Negative) Urine Glucose (UA) (Negative) Urine Ketones (Negative) Urine Blood (Negative) Urine Nitrite (Negative) Urine Bilirubin (Negative) Urine Urobilinogen (<2.0) mg/dL Ur Leukocyte Esterase (Negative) Serum Alcohol <10 mg/dL 01/05/17 01/05/17 01/05/17 Range/Units 04:01 04:01 04:01 WBC 5.0 (3.8-10.6) k/uL RBC 4.62 (3.80-5.40) m/uL Hgb 14.3 (11.4-16.0) gm/dL Hct 42.0 (34.0-46.0) % MCV 90.9 (80.0-100.0) fL MCH 31.0 (25.0-35.0) pg MCHC 34.1 (31.0-37.0) g/dL RDW 12.9 (11.5-15.5) % Plt Count 212 (150-450) k/uL Neutrophils % 82 % Lymphocytes % 16 % Monocytes % 1 % Eosinophils % 0 % Basophils % 0 % Neutrophils # 4.1 (1.3-7.7) k/uL Lymphocytes # 0.8 L (1.0-4.8) k/uL Monocytes # 0.1 (0-1.0) k/uL Eosinophils # 0.0 (0-0.7) k/uL Basophils # 0.0 (0-0.2) k/uL PT 10.0 (9.0-12.0) sec INR 1.0 (<1.2) APTT 23.6 (22.0-30.0) sec Sodium (137-145) mmol/L Potassium (3.5-5.1) mmol/L Chloride (98-107) mmol/L Carbon Dioxide (22-30) mmol/L Anion Gap mmol/L BUN (7-17) mg/dL Creatinine (0.52-1.04) mg/dL Est GFR (MDRD) Af Amer (>60 ml/min/1.73 sqM) Est GFR (MDRD) Non-Af (>60 ml/min/1.73 sqM) Glucose (74-99) mg/dL POC Glucose (mg/dL) (75-99) mg/dL POC Glu Finance Controller ID Plasma Lactic Acid Dawit 9.6 H* (0.7-2.0) mmol/L Calcium (8.4-10.2) mg/dL Phosphorus (2.5-4.5) mg/dL Magnesium (1.6-2.3) mg/dL Total Bilirubin (0.2-1.3) mg/dL AST (14-36) U/L ALT (9-52) U/L Alkaline Phosphatase (38-126) U/L Total Creatine Kinase (30-135) U/L CK-MB (CK-2) (0.0-2.4) ng/mL CK-MB (CK-2) Rel Index Troponin I (0.000-0.034) ng/mL Total Protein (6.3-8.2) g/dL Albumin (3.5-5.0) g/dL Urine Color Urine Appearance (Clear) Urine pH (5.0-8.0) Ur Specific [place] (1.001-1.035) Urine Protein (Negative) Urine Glucose (UA) (Negative) Urine Ketones (Negative) Urine Blood (Negative) Urine Nitrite (Negative) Urine Bilirubin (Negative) Urine Urobilinogen (<2.0) mg/dL Ur Leukocyte Esterase (Negative) Serum Alcohol mg/dL 01/05/17 01/05/17 01/05/17 Range/Units 04:33 05:10 06:01 WBC (3.8-10.6) k/uL RBC (3.80-5.40) m/uL Hgb (11.4-16.0) gm/dL Hct (34.0-46.0) % MCV (80.0-100.0) fL MCH (25.0-35.0) pg MCHC (31.0-37.0) g/dL RDW (11.5-15.5) % Plt Count (150-450) k/uL Neutrophils % % Lymphocytes % % Monocytes % % Eosinophils % % Basophils % % Neutrophils # (1.3-7.7) k/uL Lymphocytes # (1.0-4.8) k/uL Monocytes # (0-1.0) k/uL Eosinophils # (0-0.7) k/uL Basophils # (0-0.2) k/uL PT (9.0-12.0) sec INR (<1.2) APTT (22.0-30.0) sec Sodium (137-145) mmol/L Potassium (3.5-5.1) mmol/L Chloride (98-107) mmol/L Carbon Dioxide (22-30) mmol/L Anion Gap mmol/L BUN (7-17) mg/dL Creatinine (0.52-1.04) mg/dL Est GFR (MDRD) Af Amer (>60 ml/min/1.73 sqM) Est GFR (MDRD) Non-Af (>60 ml/min/1.73 sqM) Glucose (74-99) mg/dL POC Glucose (mg/dL) 402 H 332 H (75-99) mg/dL POC Glu Finance Controller ID Ezequiel, Siri Ezequiel, Siri Plasma Lactic Acid Dawit (0.7-2.0) mmol/L Calcium (8.4-10.2) mg/dL Phosphorus (2.5-4.5) mg/dL Magnesium (1.6-2.3) mg/dL Total Bilirubin (0.2-1.3) mg/dL AST (14-36) U/L ALT (9-52) U/L Alkaline Phosphatase (38-126) U/L Total Creatine Kinase (30-135) U/L CK-MB (CK-2) (0.0-2.4) ng/mL CK-MB (CK-2) Rel Index Troponin I (0.000-0.034) ng/mL Total Protein (6.3-8.2) g/dL Albumin (3.5-5.0) g/dL Urine Color Colorless Urine Appearance Clear (Clear) Urine pH 5.0 (5.0-8.0) Ur Specific [place] 1.026 (1.001-1.035) Urine Protein Negative (Negative) Urine Glucose (UA) 4+ H (Negative) Urine Ketones Trace H (Negative) Urine Blood Negative (Negative) Urine Nitrite Negative (Negative) Urine Bilirubin Negative (Negative) Urine Urobilinogen <2.0 (<2.0) mg/dL Ur Leukocyte Esterase Negative (Negative) Serum Alcohol mg/dL Disposition Clinical Impression: Anxiety disorder, Chronic pancreatitis, Nausea & vomiting, Lactic acid acidosis Disposition: ADMITTED IP TO THIS [facility] Condition: Fair Referrals: Mike Borges MD [Primary Care Provider] - 1-2 days
[2017-01-05 03:57] LABS: Glucose,Whole Blood 557 mg/dL (75-99)
[2017-01-05] MEDS ORDERED: INSULIN REGULAR 100 UNIT/ML VIAL IV ONE (04:21)
[2017-01-05] MEDS ORDERED: INSULIN REGULAR 100 UNIT/ML VIAL SQ ONE (04:21)
[2017-01-05] MEDS: SODIUM CHLORIDE 0.9% 1,000 ML IV STA ×2 (04:29→08:33)
[2017-01-05 04:31] LABS: ALT 29 U/L (9-52); Alcohol <10 mg/dL; Alkaline Phosphatase 139 U/L (38-126); Blood Urea Nitrogen 11 mg/dL (7-17); Calcium 10.1 mg/dL (8.4-10.2); Carbon Dioxide 14 mmol/L (22-30); Magnesium 1.9 mg/dL (1.6-2.3); Non-African American GFR(MDRD) >60 (>60 ml/min/1.73 sqM); Phosphorous 3.7 mg/dL (2.5-4.5); Potassium 4.1 mmol/L (3.5-5.1); Sodium 140 mmol/L (137-145); Total Bilirubin 0.5 mg/dL (0.2-1.3); Total Protein 7.4 g/dL (6.3-8.2)
[2017-01-05 04:38] LABS: Creatine Kinase 156 U/L (30-135)
[2017-01-05 04:40] LABS: AST 30 U/L (14-36)
[2017-01-05 04:41] LABS: Anion Gap 21 mmol/L; Basophils % (A) 0 %; CH 30.3; CHCM 33.6; Chloride 105 mmol/L (98-107); Eosinophils % (A) 0 %; HDW 3.06; HGB 14.3 gm/dL (11.4-16.0); Luc # (Auto) 0.06; Luc % (Auto) 1; Lymphocytes # (A) 0.8 k/uL (1.0-4.8); Lymphocytes % (A) 16 %; MCHC 34.1 g/dL (31.0-37.0); MCV 90.9 fL (80.0-100.0); Mean Platelet Volume 6.8; Monocytes # (A) 0.1 k/uL (0-1.0); Monocytes % (A) 1 %; Neutrophils # (A) 4.1 k/uL (1.3-7.7); Neutrophils % (A) 82 %; RBC 4.62 m/uL (3.80-5.40); RDW 12.9 % (11.5-15.5); WBC (Perox) 5.14
[2017-01-05 04:41] LABS: Appearance,Urine Clear (Clear); Bilirubin,Urine Negative (Negative); Glucose,Urine (UA) 4+ (Negative); Ketones,Urine Trace (Negative); Leukocyte Esterase,Urine Negative (Negative); Nitrite,Urine Negative (Negative); Protein,Urine Negative (Negative); Specific Gravity,Urine 1.026 (1.001-1.035); UA Billing (MACRO vs. MICRO) CHEM; Urobilinogen,Urine <2.0 mg/dL (<2.0)
[2017-01-05 04:44] LABS: Glucose 627 mg/dL (74-99)
[2017-01-05 04:52] LABS: Troponin I <0.012 ng/mL (0.000-0.034)
[2017-01-05 04:55] LABS: Partial Thromboplastin Time 23.6 sec (22.0-30.0)
[2017-01-05 05:13] LABS: Glucose,Whole Blood 402 mg/dL (75-99)
[2017-01-05 06:10] LABS: Glucose,Whole Blood 332 mg/dL (75-99)
[2017-01-05] MEDS ORDERED: PANTOPRAZOLE 40 MG/10 ML VIAL IVP STA (06:49)
[2017-01-05] MEDS ORDERED: SODIUM CHLORIDE 0.9% 1,000 ML IV ONE (06:56)
[2017-01-05] MEDS: MORPHINE SULFATE 4 MG/ML SYRINGE IVP PRN ×3 (08:30→21:22)
[2017-01-05] MEDS: ENOXAPARIN 40 MG/0.4 ML SYRINGE SQ SCH (08:32)
[2017-01-05] MEDS ORDERED: LISINOPRIL 20 MG TAB PO SCH (11:15)
[2017-01-05 11:30] LABS: Glucose,Whole Blood 384 mg/dL (75-99)
--- NOTE | 2017-01-05 11:51 | P.CONS ---
History of Present Illness - Reason for Consult Consult date: 01/05/17 chronic diarrhea colitis Requesting physician: Mike Borges - History of Present Illness 51-year-old female with a history of anxiety, depression, diabetes mellitus, hyperosmolar nonketotic hyperglycemia, colitis, hypertension, gastroparesis, cholecystectomy, chronic pancreatitis secondary to hypertriglyceridemia and chronic abdominal pain admitted with elevated serum glucose, nausea, abdominal pain and diarrhea. Patient states her diarrhea started yesterday very watery foul-smelling nonbloody upwards 20 times. Since midnight patient reports at least a dozen bowel movements however nursing has not witnessed any bowel movements. Denies changes in medications. No recent antibiotic. No changes in diet or recent travels. No sick contacts. Denies hematemesis hematochezia melena fever or chills. Abdominal pain as crampy across the midabdomen. Patient's normal bowel function waxes and wanes between constipation and diarrhea depending on her Reglan usage. She may go a few days without a bowel movement and then have several bowel movements in 1 day; it varies. GI office records reviewed last colonoscopy of record February 2005 for evaluation chronic nonbleeding diarrhea resulted in normal-appearing colon random biopsies reported nonspecific colitis of the ascending/descending colon. White count 5.0. Hemoglobin 14.3. BUN 11. Creatinine 0.6. Glucose 627. Lactic acid 9.6 presently 8.8. Lipase 69. Afebrile. Review of Systems Constitutional: Denies fever, chills, sweats, weight gain, or loss. HEENT: Negative for migraines, blurred vision or loss, earaches, drainage, tinnitus, oral mucosal lesions, dysphagia, or odynophagia. CARDIAC: CAD. Familial dyslipidemia. Hypertension. Negative for chest pain, arrhythmias, or palpitation. RESPIRATORY: Negative for shortness of breath, hemoptysis, cough, or sputum production. GI: See HPI for pertinent findings. : Negative for hematuria, urgency, frequency, polyuria, or dysuria. GYNc: Denies possibility of . Negative vaginal discharge. MUSCULOSKELETAL: Negative for muscle aches, swelling, arthritis, and arthralgias. NEUROLOGIC: Negative for stroke or TIA. ENDOCRINE: Diabetes mellitus. Diabetic ketoacidosis. Hyperosmolar nonketotic hyperglycemia. Hypertriglyceridemia. Negative for thyroid problems. SKIN: Negative for rash or itching. PSYCHIATRIC: depression and anxiety All systems: negative (See HPI) Past Medical History Past Medical History: Coronary Artery Disease (CAD), Diabetes Mellitus, GERD/ Reflux, Hyperlipidemia, Hypertension, Syncope Additional Past Medical History / Comment(s): IDDM type II, recurrent DKA, episodes of hyperosmolar nonketonic hyperglycemia, hypertensive heart disease, chronic pain syndrome, hypertriglyceridemia, chronic pancreatitis, chronic abdominal pain, gastroparesis, severe GERD, diabetic polyneuropathy mostly in hands and alittle in feet bilaterally, infectious colitis. History of Any Multi-Drug Resistant Organisms: None Reported Past Surgical History: Cholecystectomy Additional Past Surgical History / Comment(s): Biliary stent through an ERCP that was performed at [facility] and stent removed 2007, lap jenn, colonoscopy, ERCP. Past Anesthesia/Blood Transfusion Reactions: No Reported Reaction Additional Past Anesthesia/Blood Transfusion Reaction / Comm: Pt has never received blood."CLAUSTERPHOBIA" Smoking Status: Never smoker - Past Family History Sister(s) Additional Family Medical History / Comment(s): Patient has 2 sisters with no major medical problems. Daughter(s) Additional Family Medical History / Comment(s): Patient has 2 daughters and one had mitral valve replacement. Son(s) Additional Family Medical History / Comment(s): She has one son with no major medical problems. Brother(s) Additional Family Medical History / Comment(s): Does not have any brothers. Father Family Medical History: No Reported History Additional Family Medical History / Comment(s): Father is 79 years of age with severe anxiety and was hospitalized for this at times. Mother Family Medical History: Cancer Additional Family Medical History / Comment(s): Mother of metastatic breast CA at the age of 42yrs. Medications and Allergies Home Medications Medication Instructions Recorded Confirmed Type Lisinopril [Zestril] 20 mg PO DAILY 09/09/13 01/05/17 History Fenofibrate [Lofibra] 160 mg PO HS tab 08/09/14 01/05/17 Rx Gabapentin [Neurontin] 200 mg PO BID cap 08/09/14 01/05/17 Rx Metoclopramide [Reglan] 5 mg PO ACHS tab 08/09/14 01/05/17 Rx Prochlorperazine [Compazine] 10 mg PO TID PRN #0 tab 08/09/14 01/05/17 Rx Sertraline [Zoloft] 200 mg PO DAILY tab 08/09/14 01/05/17 Rx HYDROmorphone [Dilaudid] 2 mg PO Q8H PRN 09/17/14 01/05/17 History Multivitamins, Thera [Multivitamin 1 tab PO DAILY 09/17/14 01/05/17 History (formulary)] Atenolol [Tenormin] 100 mg PO DAILY 11/19/14 01/05/17 History Calcium Carb-Vit D 500Mg-200Un 1 tab PO BID 11/19/14 01/05/17 History [Oscal 500+D] Mirtazapine [Remeron] 45 mg PO HS 11/19/14 01/05/17 History Rosuvastatin Calcium [Crestor] 40 mg PO HS 11/19/14 01/05/17 History fentaNYL 25MCG/HR PATCH [Duragesic 1 patch TRANSDERM Q72H #0 07/10/15 01/05/17 Rx 25MCG/HR] Insulin Aspart [NovoLOG Flexpen] 26 unit SQ AC-BRKFST 10/14/15 01/05/17 History Insulin Aspart [NovoLOG Flexpen] 26 unit SQ AC-LUNCH 10/14/15 01/05/17 History Insulin Aspart [NovoLOG Flexpen] 36 units SQ AC-SUPPER 10/14/15 01/05/17 History Pancreatic Enzymes Otc(Unknown) 1 cap PO AC-TID 10/14/15 01/05/17 History Cetirizine HCl [Zyrtec] 10 mg PO DAILY 02/04/16 01/05/17 History Niacin 1,000 mg PO HS 02/04/16 01/05/17 History clonazePAM [KlonoPIN] 2 mg PO HS 02/04/16 01/05/17 History Dicyclomine [Bentyl] 10 mg PO TID PRN #90 cap 03/22/16 01/05/17 Rx Famotidine [Pepcid] 20 mg PO BID #0 03/22/16 01/05/17 Rx Insulin Detemir [Levemir] 66 unit SQ HS 07/21/16 01/05/17 History Ondansetron Odt [Zofran ODT] 4 mg PO Q8HR PRN #20 tab 07/21/16 01/05/17 Rx clonazePAM [KlonoPIN] 1 mg PO QAM 07/21/16 01/05/17 History Allergies Allergy/AdvReac Type Severity Reaction Status Date / Time NSAIDS (Non-Steroidal Allergy Rash/Hives Verified 01/05/17 07:32 Anti-Inflamma Physical Exam Vitals: Vital Signs Temp Pulse Resp BP Pulse Ox 01/05/17 07:52 98.3 F 87 18 145/83 95 01/05/17 07:00 99 18 115/71 94 L 01/05/17 06:08 99 17 126/75 96 01/05/17 03:19 97.5 F L 116 H 18 141/88 95 Intake and Output 01/04/17 01/05/17 01/05/17 22:59 06:59 14:59 Other: Weight 64.41 kg General appearance: The patient is alert, oriented, in no acute distress. HET: Head is normocephalic and atraumatic. Pupils are equal and reactive. Oropharynx is clear without lesions. Neck: Supple without lymphadenopathy. Trachea midline. Heart: S1 S2. Regular rate and rhythm. Lungs: No crackles or wheezes are heard. Abdomen: Soft, very mild tenderness across mid abdomen, nondistended with bowel sounds. No peritoneal signs. No palpable organomegaly or masses. Extremities: Normal skin color and turgor. No cyanosis, rash, ulceration, clubbing, or edema. Radial and pedal pulses are 2/4 bilaterally. Neurological: No focal deficits. Strength and sensation are grossly intact. Results CBC & Chem 7: 01/05/17 04:01 01/05/17 04:01 Labs: Abnormal Lab Results - Last 24 Hours (Table) 01/05/17 01/05/17 01/05/17 Range/Units 03:48 04:01 04:01 Lymphocytes # (1.0-4.8) k/uL Carbon Dioxide 14 L (22-30) mmol/L Glucose 627 H* (74-99) mg/dL POC Glucose (mg/dL) 557 H (75-99) mg/dL Plasma Lactic Acid Dawit (0.7-2.0) mmol/L Alkaline Phosphatase 139 H (38-126) U/L Total Creatine Kinase 156 H (30-135) U/L Urine Glucose (UA) (Negative) Urine Ketones (Negative) 01/05/17 01/05/17 01/05/17 Range/Units 04:01 04:01 04:33 Lymphocytes # 0.8 L (1.0-4.8) k/uL Carbon Dioxide (22-30) mmol/L Glucose (74-99) mg/dL POC Glucose (mg/dL) (75-99) mg/dL Plasma Lactic Acid Dawit 9.6 H* (0.7-2.0) mmol/L Alkaline Phosphatase (38-126) U/L Total Creatine Kinase (30-135) U/L Urine Glucose (UA) 4+ H (Negative) Urine Ketones Trace H (Negative) 01/05/17 01/05/17 01/05/17 Range/Units 05:10 06:01 08:20 Lymphocytes # (1.0-4.8) k/uL Carbon Dioxide (22-30) mmol/L Glucose (74-99) mg/dL POC Glucose (mg/dL) 402 H 332 H (75-99) mg/dL Plasma Lactic Acid Dawit 8.8 H* (0.7-2.0) mmol/L Alkaline Phosphatase (38-126) U/L Total Creatine Kinase (30-135) U/L Urine Glucose (UA) (Negative) Urine Ketones (Negative) Microbiology - Last 24 Hours (Table) 01/05/17 04:33 Urine Culture - Preliminary Urine,Voided Assessment and Plan (1) Diarrhea Narrative/Plan: Acute diarrheal illness nonspecific possible viral possible inflammatory possible infectious history of nonspecific colitis Status: Acute (2) Chronic abdominal pain Status: Chronic Plan: 1. Stool studies. Glycemic control. Light diet as tolerated observe. 2. Antiemetics prn. Nursing staff to monitor and record bowel movement activity. 3. Colonoscopy recommended by Dr. Cohen. Patient declines inpatient colonoscopy secondary to usage of Golytely prep. Office samples cannot be administered inpatient therefore Dr. Cohen advised outpatient colonoscopy screening 01/12/17 and GI office will provide sample. Patient is agreeable with this plan a care. Thank you for this kind referral and the opportunity to participate in the care of your patient. This consultation was discussed with Dr. Cohen. The impression and plan of care have been directed as dictated.
[2017-01-05] MEDS ORDERED: INSULIN LISPRO (humaLOG) 300 UNIT/3 ML VIAL SQ SCH ×2 (12:30→17:30)
[2017-01-05] MEDS: METOCLOPRAMIDE 5 MG TAB PO SCH ×3 (12:30→21:21)
[2017-01-05] MEDS: LIPASE 5,000/PROTEASE 17,000/AMYLASE 27,0000 PO SCH ×2 (12:30→16:56)
[2017-01-05] MEDS: ATENOLOL 50 MG TAB PO SCH (12:31)
[2017-01-05] MEDS: ONDANSETRON 4 MG/2 ML VIAL IVP PRN (12:34)
--- NOTE | 2017-01-05 12:42 | P.HPIM ---
History of Present Illness H&P Date: 01/05/17 Chief Complaint: Diarrhea, hyperglycemia This is a 51-year-old female patient of mine with previous medical history significant for familial dyslipidemia, recurrent pancreatitis and chroni abdominal pain, thought to be due to hypertriglyceridemia, hypertension and hypertensive cardiovascular disease, diabetes mellitus type 2 with recurrent diabetic ketoacidosis as well as episodes of hyperosmolar nonketotic hyperglycemia, hypertensive cardiovascular disease, chronic pain syndrome, gastroparesis, gastroesophageal reflux disease, diabetic polyneuropathy. She presented to [facility] emergency center 3:00 in the morning after 2 hours of increased abdominal pain associated with the nausea and diarrhea patient stated that she started not feeling well yesterday in the evening and she did not take Lantus however she took 33 units of Lantus instead and the she checked her blood glucose level that was quite high greater than 600 since her glucometer goes to 600, so she ended up coming to the ER she was found to have a blood glucose level of greater than 600 and she did receive for a liter of normal saline, and she was started on insulin drip, her ketone levels are negative, however lactic acid was high at 9.6 subsequently after fluid resuscitation dropped down , patient ended up admitted to the hospital for hyperosmolar nonketotic hyperglycemia she was placed on insulin drip effortfully her blood glucose dropped from 600-302 hours subsequent to her insulin drip was discontinued and the patient was kept in the hospital and she was taken off her insulin drip and she was started on her insulin regimen, and she was started on clear liquid diet, there was some concern regarding mesenteric ischemia because the patient hyperlipidemia that is familial and the fact that she had a CT angiography of the abdomen that was negative last time does not 100% rule it out and I believe the patient will need to have a celiac angiogram that would be done as an outpatient as well however we have consult GI for possible colonoscopy to rule out any ischemia or other source of infectious etiology. Review of Systems Constitutional: Reports chronic pain, Reports weakness, Denies chills, Denies chronic headaches, Denies lethargy, Denies malaise, Denies weight gain, Denies weight loss Eyes: denies blurred vision, denies bulging eye, denies decreased vision, denies diplopia Ears: deny: decreased hearing Ears, nose, mouth and throat: Denies dysphagia, Denies epistaxis, Denies neck lump, Denies sore throat, Denies vertigo Breasts: absent: change in shape Cardiovascular: Reports high blood pressure, Denies chest pain, Denies decreased exercise tolerance, Denies dyspnea on exertion, Denies paroxysmal nocturnal dyspnea, Denies phlebitis, Denies rapid heart beat, Denies shortness of breath, Denies syncope Respiratory: Denies congestion, Denies cough, Denies cough with sputum, Denies home oxygen, Denies sleep apnea, Denies snoring, Denies wheezing Gastrointestinal: Reports abdominal pain, Reports bloating, Reports change in bowel habits, Reports diarrhea, Reports nausea, Reports vomiting, Denies heartburn, Denies melena Genitourinary: Denies dysuria, Denies hematuria Musculoskeletal: Denies myalgias Musculoskeletal: absent: ankle pain, ankle stiffness, ankle swelling, elbow pain , elbow stiffness, elbow swelling, foot pain, foot stiffness, foot swelling, hand pain, hand stiffness, hand swelling, hip pain, hip stiffness, hip swelling , knee pain, knee stiffness, knee swelling, shoulder pain, shoulder stiffness, shoulder swelling, wrist pain, wrist stiffness, wrist swelling Integumentary: Denies pruritus, Denies rash Neurological: Denies numbness, Denies weakness Psychiatric: Denies anxiety, Denies depression Endocrine: Denies fatigue, Denies weight change Past Medical History Past Medical History: Coronary Artery Disease (CAD), Diabetes Mellitus, GERD/ Reflux, Hyperlipidemia, Hypertension, Syncope Additional Past Medical History / Comment(s): IDDM type II, recurrent DKA, episodes of hyperosmolar nonketonic hyperglycemia, hypertensive heart disease, chronic pain syndrome, hypertriglyceridemia, chronic pancreatitis, chronic abdominal pain, gastroparesis, severe GERD, diabetic polyneuropathy mostly in hands and alittle in feet bilaterally, infectious colitis. History of Any Multi-Drug Resistant Organisms: None Reported Past Surgical History: Cholecystectomy Additional Past Surgical History / Comment(s): Biliary stent through an ERCP that was performed at [facility] and stent removed 2007, lap jenn, colonoscopy, ERCP. Past Anesthesia/Blood Transfusion Reactions: No Reported Reaction Additional Past Anesthesia/Blood Transfusion Reaction / Comment(s): Pt has never received blood."CLAUSTERPHOBIA" Smoking Status: Never smoker - Past Family History Father Family Medical History: No Reported History Additional Family Medical History / Comment(s): Father is 79 years of age with severe anxiety and was hospitalized for this at times. Mother Family Medical History: Cancer Additional Family Medical History / Comment(s): Mother of metastatic breast CA at the age of 42yrs. Sister(s) Additional Family Medical History / Comment(s): Patient has 2 sisters with no major medical problems. Daughter(s) Additional Family Medical History / Comment(s): Patient has 2 daughters and one had mitral valve replacement. Son(s) Additional Family Medical History / Comment(s): She has one son with no major medical problems. Brother(s) Additional Family Medical History / Comment(s): Does not have any brothers. Medications and Allergies Home Medications Medication Instructions Recorded Confirmed Type Lisinopril [Zestril] 20 mg PO DAILY 09/09/13 01/05/17 History Fenofibrate [Lofibra] 160 mg PO HS tab 08/09/14 01/05/17 Rx Gabapentin [Neurontin] 200 mg PO BID cap 08/09/14 01/05/17 Rx Metoclopramide [Reglan] 5 mg PO ACHS tab 08/09/14 01/05/17 Rx Prochlorperazine [Compazine] 10 mg PO TID PRN #0 tab 08/09/14 01/05/17 Rx Sertraline [Zoloft] 200 mg PO DAILY tab 08/09/14 01/05/17 Rx HYDROmorphone [Dilaudid] 2 mg PO Q8H PRN 09/17/14 01/05/17 History Multivitamins, Thera [Multivitamin 1 tab PO DAILY 09/17/14 01/05/17 History (formulary)] Atenolol [Tenormin] 100 mg PO DAILY 11/19/14 01/05/17 History Calcium Carb-Vit D 500Mg-200Un 1 tab PO BID 11/19/14 01/05/17 History [Oscal 500+D] Mirtazapine [Remeron] 45 mg PO HS 11/19/14 01/05/17 History Rosuvastatin Calcium [Crestor] 40 mg PO HS 11/19/14 01/05/17 History fentaNYL 25MCG/HR PATCH [Duragesic 1 patch TRANSDERM Q72H #0 07/10/15 01/05/17 Rx 25MCG/HR] Insulin Aspart [NovoLOG Flexpen] 26 unit SQ AC-BRKFST 10/14/15 01/05/17 History Insulin Aspart [NovoLOG Flexpen] 26 unit SQ AC-LUNCH 10/14/15 01/05/17 History Insulin Aspart [NovoLOG Flexpen] 36 units SQ AC-SUPPER 10/14/15 01/05/17 History Pancreatic Enzymes Otc(Unknown) 1 cap PO AC-TID 10/14/15 01/05/17 History Cetirizine HCl [Zyrtec] 10 mg PO DAILY 02/04/16 01/05/17 History Niacin 1,000 mg PO HS 02/04/16 01/05/17 History clonazePAM [KlonoPIN] 2 mg PO HS 02/04/16 01/05/17 History Dicyclomine [Bentyl] 10 mg PO TID PRN #90 cap 03/22/16 01/05/17 Rx Famotidine [Pepcid] 20 mg PO BID #0 03/22/16 01/05/17 Rx Insulin Detemir [Levemir] 66 unit SQ HS 07/21/16 01/05/17 History Ondansetron Odt [Zofran ODT] 4 mg PO Q8HR PRN #20 tab 07/21/16 01/05/17 Rx clonazePAM [KlonoPIN] 1 mg PO QAM 07/21/16 01/05/17 History Allergies Allergy/AdvReac Type Severity Reaction Status Date / Time NSAIDS (Non-Steroidal Allergy Rash/Hives Verified 01/05/17 07:32 Anti-Inflamma Physical Exam Vitals: Vital Signs Temp Pulse Resp BP Pulse Ox 01/05/17 07:52 98.3 F 87 18 145/83 95 01/05/17 07:00 99 18 115/71 94 L 01/05/17 06:08 99 17 126/75 96 01/05/17 03:19 97.5 F L 116 H 18 141/88 95 Intake and Output 01/04/17 01/05/17 01/05/17 22:59 06:59 14:59 Other: Weight 64.41 kg - Constitutional General appearance: average body habitus, mild distress - EENT Eyes: anicteric sclerae, EOMI, PERRLA, no ptosis, no scleral icterus, normal appearance ENT: hearing grossly normal, NA/AT, normal oropharynx, no thrush Ears: bilateral: normal - Neck Neck: no lymphadenopathy, normal ROM, no rigidity, no stridor, no thyromegaly Carotids: bilateral: upstroke normal Thyroid: bilateral: normal size - Respiratory Respiratory: bilateral: diminished, negative: dullness, rales, rhonchi, wheezing , prolonged expiration, prolonged inspiration - Cardiovascular Rhythm: regular Heart sounds: normal: S1, S2 Abnormal Heart Sounds: no systolic murmur, no S3 Gallop, no S4 Gallop, no click - Gastrointestinal General gastrointestinal: normal bowel sounds, soft, no splenomegaly, no tenderness, no umbilical hernia, no ventral hernia - Integumentary Integumentary: normal, normal turgor - Neurologic Neurologic: CNII-XII intact - Musculoskeletal Musculoskeletal: generalized weakness, strength equal bilaterally - Psychiatric Psychiatric: A&O x's 3, appropriate affect, intact judgment & insight Results CBC & Chem 7: 01/05/17 04:01 01/05/17 04:01 Labs: Abnormal Lab Results - Last 24 Hours (Table) 01/05/17 01/05/17 01/05/17 Range/Units 03:48 04:01 04:01 Lymphocytes # (1.0-4.8) k/uL Carbon Dioxide 14 L (22-30) mmol/L Glucose 627 H* (74-99) mg/dL POC Glucose (mg/dL) 557 H (75-99) mg/dL Plasma Lactic Acid Dawit (0.7-2.0) mmol/L Alkaline Phosphatase 139 H (38-126) U/L Total Creatine Kinase 156 H (30-135) U/L Urine Glucose (UA) (Negative) Urine Ketones (Negative) 01/05/17 01/05/17 01/05/17 Range/Units 04:01 04:01 04:33 Lymphocytes # 0.8 L (1.0-4.8) k/uL Carbon Dioxide (22-30) mmol/L Glucose (74-99) mg/dL POC Glucose (mg/dL) (75-99) mg/dL Plasma Lactic Acid Dawit 9.6 H* (0.7-2.0) mmol/L Alkaline Phosphatase (38-126) U/L Total Creatine Kinase (30-135) U/L Urine Glucose (UA) 4+ H (Negative) Urine Ketones Trace H (Negative) 01/05/17 01/05/17 Range/Units 05:10 06:01 Lymphocytes # (1.0-4.8) k/uL Carbon Dioxide (22-30) mmol/L Glucose (74-99) mg/dL POC Glucose (mg/dL) 402 H 332 H (75-99) mg/dL Plasma Lactic Acid Dawit (0.7-2.0) mmol/L Alkaline Phosphatase (38-126) U/L Total Creatine Kinase (30-135) U/L Urine Glucose (UA) (Negative) Urine Ketones (Negative) Thrombosis Risk Factor Assmnt - DVT/VTE Prophylaxis DVT/VTE Prophylaxis: Pharmacologic Prophylaxis ordered, Mechanical Prophylaxis ordered - Choose All That Apply Any of the Below Risk Factors Present?: Yes Each Factor Represents 1 point: Age 41-60 years Other Risk Factors: No Other congenital or acquired thrombophilia - If yes, enter type in comment: No Thrombosis Risk Factor Assessment Total Risk Factor Score: 1 Thrombosis Risk Factor Assessment Level: Low Risk Assessment and Plan Plan: 1. Hyperosmolar nonketotic hyperglycemia. IV fluid, monitor the patient was a very closely , and we'll start the patient on Levemir 66 units at bedtime along with a 50% of the dose of NovoLog due to fact that the patient is on the clear liquid diet. 2. History of diabetes mellitus type 2, insulin requiring we will transition the patient back to Levemir 66 units at bedtime along with Humalog. 3. Hypertension and hypertensive cardiovascular disease with left ventricular hypertrophy we will continue the patient on atenolol 100 mg orally once every day as well as lisinopril 20 mg orally once every day. 4. Hyperlipidemia continue the patient on Crestor 40 mg orally once every day, fenofibrate 160 mg orally once every day,Niaspan 1000 g orally once every. 5. Diabetic polyneuropathy continue gabapentin 200 mg orally twice every day. 6. Anxiety generalized disorder. Continue Klonopin 2 milligram in the evening and 1 mg in the morning. 7. Depression, recurrent. Continue Zoloft 200 mg orally once every day. 8. Gastroparesis continue Reglan 5 mg before each meal 3 times every day. 9. Chronic pancreatitis continue IV fluid resuscitation as well as current pain management in the form of Dilaudid along with fentanyl patch. 10. GERD continue PPI. 11. DVT. Continue heparin 5000 units subcutaneously every 12 hours. 12. Acute lactic acidosis of unclear etiology, the possibility of chronic mesenteric ischemia still need to be ruled out, patient did have a CT angiography of the abdomen last time he was negative for evidence of any super or inferior mesenteric artery stenosis, however I believe the patient would need to go for a celiac angiogram to rule that out 100%, as the patient has familial hyperlipidemia, patient will be seen in consultation by GI for colonoscopy to rule out other possible etiologies including nonspecific colitis or collagenous colitis. 13. Full code. 14. Admit to inpatient. Estimated length of stay 2 midnights .
[2017-01-05] MEDS: LISINOPRIL 20 MG TAB PO SCH (16:56)
[2017-01-05 17:28] LABS: Glucose,Whole Blood 217 mg/dL (75-99)
[2017-01-05] MEDS ORDERED: INSULIN DETEMIR 100 UNIT/ML 10 ML VIAL SQ SCH (21:00)
[2017-01-05 21:01] LABS: Glucose,Whole Blood 91 mg/dL (75-99)
[2017-01-05] MEDS: CALCIUM CARB-VIT D 500MG-200UN 1 EACH TAB PO SCH (21:20)
[2017-01-05] MEDS: clonazePAM 1 MG TAB PO SCH (21:20)
[2017-01-05] MEDS: ATORVASTATIN 80 MG TAB PO SCH (21:20)
[2017-01-05] MEDS: GABAPENTIN 100 MG CAP PO SCH (21:21)
[2017-01-05] MEDS: FAMOTIDINE 20 MG TAB PO SCH (21:21)
[2017-01-05] MEDS: MIRTAZAPINE 45 MG TABLET PO SCH (21:22)
[2017-01-06 02:05] LABS: Glucose,Whole Blood 192 mg/dL (75-99)
[2017-01-06] MEDS: MORPHINE SULFATE 4 MG/ML SYRINGE IVP PRN ×5 (02:12→20:02)
[2017-01-06] MEDS: ONDANSETRON 4 MG/2 ML VIAL IVP PRN ×2 (06:10→14:26)
[2017-01-06 07:22] LABS: Glucose,Whole Blood 132 mg/dL (75-99)
[2017-01-06] MEDS ORDERED: INSULIN LISPRO (humaLOG) 300 UNIT/3 ML VIAL SQ SCH ×3 (07:30→17:30)
[2017-01-06] MEDS: ATENOLOL 50 MG TAB PO SCH (07:50)
[2017-01-06] MEDS: METOCLOPRAMIDE 5 MG TAB PO SCH ×4 (07:50→21:15)
[2017-01-06] MEDS: LIPASE 5,000/PROTEASE 17,000/AMYLASE 27,0000 PO SCH ×3 (07:50→17:36)
[2017-01-06] MEDS: ENOXAPARIN 40 MG/0.4 ML SYRINGE SQ SCH ×2 (07:51→07:56)
[2017-01-06] MEDS: CALCIUM CARB-VIT D 500MG-200UN 1 EACH TAB PO SCH ×2 (07:51→21:14)
[2017-01-06] MEDS: SERTRALINE 100 MG TAB PO SCH (07:52)
[2017-01-06] MEDS: FAMOTIDINE 20 MG TAB PO SCH ×2 (07:52→21:14)
[2017-01-06] MEDS: GABAPENTIN 100 MG CAP PO SCH ×2 (07:52→21:14)
[2017-01-06] MEDS: LORATADINE 10 MG TAB PO SCH (07:52)
[2017-01-06 08:06] LABS: ALT 24 U/L (9-52); AST 15 U/L (14-36); Alkaline Phosphatase 87 U/L (38-126); Anion Gap 7 mmol/L; Blood Urea Nitrogen 6 mg/dL (7-17); Calcium 8.9 mg/dL (8.4-10.2); Carbon Dioxide 23 mmol/L (22-30); Chloride 114 mmol/L (98-107); Glucose 126 mg/dL (74-99); Magnesium 1.7 mg/dL (1.6-2.3); Non-African American GFR(MDRD) >60 (>60 ml/min/1.73 sqM); Potassium 3.6 mmol/L (3.5-5.1); Sodium 144 mmol/L (137-145); Total Bilirubin 0.3 mg/dL (0.2-1.3); Total Protein 5.7 g/dL (6.3-8.2)
[2017-01-06] MEDS ORDERED: PANTOPRAZOLE 40 MG/10 ML VIAL IVP SCH (09:00)
[2017-01-06] MEDS: clonazePAM 1 MG TAB PO SCH ×2 (09:11→21:36)
--- NOTE | 2017-01-06 10:53 | P.PN ---
Subjective Principal diagnosis: diarrhea abdominal pain Tolerating advanced diet. No bowel movements x 24 hours. Afebrile. Lactic acid improved. Objective - Vital Signs Vital signs: Vital Signs Temp 97.0 F L 01/06/17 07:00 Pulse 60 01/06/17 07:00 Resp 16 01/06/17 07:00 BP 124/76 01/06/17 07:00 Pulse Ox 97 01/06/17 07:00 Intake & Output 01/05/17 01/06/17 01/06/17 18:59 06:59 18:59 Weight 64.41 kg Other: # Voids 1 3 1 # Bowel Movements 0 - Exam General appearance: The patient is alert, oriented, in no acute distress. HET: Head is normocephalic and atraumatic. Pupils are equal and reactive. Oropharynx is clear without lesions. Neck: Supple without lymphadenopathy. Trachea midline. Heart: S1 S2. Regular rate and rhythm. Lungs: No crackles or wheezes are heard. Abdomen: Soft, mild midabdominal tenderness, nondistended with bowel sounds. No peritoneal signs. No palpable organomegaly or masses. Extremities: Normal skin color and turgor. No cyanosis, rash, ulceration, clubbing, or edema. Radial and pedal pulses are 2/4 bilaterally. Neurological: No focal deficits. Strength and sensation are grossly intact. - Labs CBC & Chem 7: 01/05/17 04:01 01/06/17 07:37 Labs: Abnormal Lab Results - Last 24 Hours (Table) 01/05/17 01/05/17 01/05/17 Range/Units 08:20 11:26 17:21 Chloride (98-107) mmol/L BUN (7-17) mg/dL Glucose (74-99) mg/dL POC Glucose (mg/dL) 384 H 217 H (75-99) mg/dL Plasma Lactic Acid Dawit 8.8 H* (0.7-2.0) mmol/L Total Protein (6.3-8.2) g/dL Albumin (3.5-5.0) g/dL 01/05/17 01/06/17 01/06/17 Range/Units 19:00 02:03 07:18 Chloride (98-107) mmol/L BUN (7-17) mg/dL Glucose (74-99) mg/dL POC Glucose (mg/dL) 192 H 132 H (75-99) mg/dL Plasma Lactic Acid Dawit 4.6 H* (0.7-2.0) mmol/L Total Protein (6.3-8.2) g/dL Albumin (3.5-5.0) g/dL 01/06/17 01/06/17 Range/Units 07:37 07:37 Chloride 114 H (98-107) mmol/L BUN 6 L (7-17) mg/dL Glucose 126 H (74-99) mg/dL POC Glucose (mg/dL) (75-99) mg/dL Plasma Lactic Acid Dawit 2.2 H* (0.7-2.0) mmol/L Total Protein 5.7 L (6.3-8.2) g/dL Albumin 3.3 L (3.5-5.0) g/dL Microbiology - Last 24 Hours (Table) 01/05/17 04:33 Urine Culture - Preliminary Urine,Voided Assessment and Plan (1) Diarrhea Narrative/Plan: Acute reported diarrheal illness nonspecific possible viral possible inflammatory possible infectious history of nonspecific colitis; no further episodes of diarrhea since admission Status: Acute (2) Chronic abdominal pain Status: Chronic Plan: 1. Outpatient endoscopy scheduled next week. 2. DC per medicine. Assessment and plan of care discussed with Dr. rinaldi
[2017-01-06] MEDS ORDERED: MULTIVITAMINS, THERA 1 EACH TAB PO SCH (12:00)
[2017-01-06 12:16] LABS: Glucose,Whole Blood 162 mg/dL (75-99)
[2017-01-06 12:42] LABS: Hemoglobin A1C 8.7 % (4.2-6.1)
--- NOTE | 2017-01-06 14:40 | P.PN ---
Subjective This is a 51-year-old female patient of [employer] with previous medical history significant for familial dyslipidemia, recurrent pancreatitis and chroni abdominal pain, thought to be due to hypertriglyceridemia, hypertension and hypertensive cardiovascular disease, diabetes mellitus type 2 with recurrent diabetic ketoacidosis as well as episodes of hyperosmolar nonketotic hyperglycemia, hypertensive cardiovascular disease, chronic pain syndrome, gastroparesis, gastroesophageal reflux disease, diabetic polyneuropathy. She presented to [facility] emergency center 3:00 in the morning after 2 hours of increased abdominal pain associated with the nausea and diarrhea patient stated that she started not feeling well yesterday in the evening and she did not take Lantus however she took 33 units of Lantus instead and the she checked her blood glucose level that was quite high greater than 600 since her glucometer goes to 600, so she ended up coming to the ER she was found to have a blood glucose level of greater than 600 and she did receive for a liter of normal saline, and she was started on insulin drip, her ketone levels are negative, however lactic acid was high at 9.6 subsequently after fluid resuscitation dropped down , patient ended up admitted to the hospital for hyperosmolar nonketotic hyperglycemia she was placed on insulin drip effortfully her blood glucose dropped from 600-302 hours subsequent to her insulin drip was discontinued and the patient was kept in the hospital and she was taken off her insulin drip and she was started on her insulin regimen, and she was started on clear liquid diet, there was some concern regarding mesenteric ischemia because the patient hyperlipidemia that is familial and the fact that she had a CT angiography of the abdomen that was negative last time does not 100% rule it out and I believe the patient will need to have a celiac angiogram that would be done as an outpatient as well however we have consult GI for possible colonoscopy to rule out any ischemia or other source of infectious etiology. 01/06: Patient's blood sugars are stable and her Levemir and Humalog will be changed back to her home dosing. Patient states the diarrhea has completely stopped. Patient has been seen by GI with plan for colonoscopy as an outpatient. Anticipate discharge home tomorrow. Objective - Vital Signs Vital signs: Vital Signs Temp 97.0 F L 01/06/17 07:00 Pulse 60 01/06/17 07:00 Resp 16 01/06/17 07:00 BP 124/76 01/06/17 07:00 Pulse Ox 97 01/06/17 07:00 Intake & Output 01/05/17 01/06/17 01/06/17 18:59 06:59 18:59 Weight 64.41 kg Other: # Voids 1 3 1 # Bowel Movements 0 - Exam General appearance: average body habitus, mild distress - EENT Eyes: anicteric sclerae, EOMI, PERRLA, no ptosis, no scleral icterus, normal appearance ENT: hearing grossly normal, NA/AT, normal oropharynx, no thrush Ears: bilateral: normal - Neck Neck: no lymphadenopathy, normal ROM, no rigidity, no stridor, no thyromegaly Carotids: bilateral: upstroke normal Thyroid: bilateral: normal size - Respiratory Respiratory: bilateral: diminished, negative: dullness, rales, rhonchi, wheezing , prolonged expiration, prolonged inspiration - Cardiovascular Rhythm: regular Heart sounds: normal: S1, S2 Abnormal Heart Sounds: no systolic murmur, no S3 Gallop, no S4 Gallop, no click - Gastrointestinal General gastrointestinal: normal bowel sounds, soft, no splenomegaly, no tenderness, no umbilical hernia, no ventral hernia - Integumentary Integumentary: normal, normal turgor - Neurologic Neurologic: CNII-XII intact - Musculoskeletal Musculoskeletal: generalized weakness, strength equal bilaterally - Psychiatric Psychiatric: A&O x's 3, appropriate affect, intact judgment & insight - Labs CBC & Chem 7: 01/05/17 04:01 01/06/17 07:37 Labs: Abnormal Lab Results - Last 24 Hours (Table) 01/05/17 01/05/17 01/06/17 Range/Units 17:21 19:00 02:03 Chloride (98-107) mmol/L BUN (7-17) mg/dL Glucose (74-99) mg/dL POC Glucose (mg/dL) 217 H 192 H (75-99) mg/dL Plasma Lactic Acid Dawit 4.6 H* (0.7-2.0) mmol/L Total Protein (6.3-8.2) g/dL Albumin (3.5-5.0) g/dL 01/06/17 01/06/17 01/06/17 Range/Units 07:18 07:37 07:37 Chloride 114 H (98-107) mmol/L BUN 6 L (7-17) mg/dL Glucose 126 H (74-99) mg/dL POC Glucose (mg/dL) 132 H (75-99) mg/dL Plasma Lactic Acid Dawit 2.2 H* (0.7-2.0) mmol/L Total Protein 5.7 L (6.3-8.2) g/dL Albumin 3.3 L (3.5-5.0) g/dL Microbiology - Last 24 Hours (Table) 01/05/17 04:33 Urine Culture - Preliminary Urine,Voided Assessment and Plan Plan: 1. Hyperosmolar nonketotic hyperglycemia. IV fluid, monitor the patient was a very closely , and we'll start the patient on Levemir 66 units at bedtime along with a 50% of the dose of NovoLog due to fact that the patient is on the clear liquid diet. 2. History of diabetes mellitus type 2, insulin requiring we will transition the patient back to Levemir 66 units at bedtime along with Humalog. 3. Hypertension and hypertensive cardiovascular disease with left ventricular hypertrophy we will continue the patient on atenolol 100 mg orally once every day as well as lisinopril 20 mg orally once every day. 4. Hyperlipidemia continue the patient on Crestor 40 mg orally once every day, fenofibrate 160 mg orally once every day,Niaspan 1000 g orally once every. 5. Diabetic polyneuropathy continue gabapentin 200 mg orally twice every day. 6. Anxiety generalized disorder. Continue Klonopin 2 milligram in the evening and 1 mg in the morning. 7. Depression, recurrent. Continue Zoloft 200 mg orally once every day. 8. Gastroparesis continue Reglan 5 mg before each meal 3 times every day. 9. Chronic pancreatitis continue IV fluid resuscitation as well as current pain management in the form of Dilaudid along with fentanyl patch. 10. GERD continue PPI. 11. DVT. Continue heparin 5000 units subcutaneously every 12 hours. 12. Acute lactic acidosis of unclear etiology, the possibility of chronic mesenteric ischemia still need to be ruled out, patient did have a CT angiography of the abdomen last time he was negative for evidence of any super or inferior mesenteric artery stenosis, however I believe the patient would need to go for a celiac angiogram to rule that out 100%, as the patient has familial hyperlipidemia, patient will be seen in consultation by GI for colonoscopy to rule out other possible etiologies including nonspecific colitis or collagenous colitis. 13. Full code. 14. Admit to inpatient. Estimated length of stay 2 midnights . Discharge plan: Home tomorrow Impression and plan of care have been directed as dictated by the signing physician. Amanda Kumar nurse practitioner acting as scribe for signing physician.
[2017-01-06] MEDS: LISINOPRIL 20 MG TAB PO SCH (16:25)
[2017-01-06 17:20] LABS: Glucose,Whole Blood 77 mg/dL (75-99)
[2017-01-06 20:59] LABS: Glucose,Whole Blood 178 mg/dL (75-99)
[2017-01-06] MEDS ORDERED: NIACIN TR 500 MG CAPSULE.ER PO SCH (21:00)
[2017-01-06] MEDS ORDERED: FENOFIBRATE 160 MG TAB PO SCH (21:00)
[2017-01-06] MEDS ORDERED: INSULIN DETEMIR 100 UNIT/ML 10 ML VIAL SQ SCH (21:00)
[2017-01-06] MEDS: ATORVASTATIN 80 MG TAB PO SCH (21:14)
[2017-01-06] MEDS: MIRTAZAPINE 45 MG TABLET PO SCH (21:15)
[2017-01-07] MEDS: MORPHINE SULFATE 4 MG/ML SYRINGE IVP PRN ×2 (00:36→07:57)
[2017-01-07 07:13] LABS: Glucose,Whole Blood 201 mg/dL (75-99)
[2017-01-07] MEDS ORDERED: INSULIN LISPRO (humaLOG) 300 UNIT/3 ML VIAL SQ SCH (07:30)
[2017-01-07] MEDS: METOCLOPRAMIDE 5 MG TAB PO SCH (07:54)
[2017-01-07] MEDS: ENOXAPARIN 40 MG/0.4 ML SYRINGE SQ SCH (07:54)
[2017-01-07] MEDS: ATENOLOL 50 MG TAB PO SCH (07:55)
[2017-01-07] MEDS: GABAPENTIN 100 MG CAP PO SCH (07:55)
[2017-01-07] MEDS: LORATADINE 10 MG TAB PO SCH (07:55)
[2017-01-07] MEDS: SERTRALINE 100 MG TAB PO SCH (07:55)
[2017-01-07] MEDS: CALCIUM CARB-VIT D 500MG-200UN 1 EACH TAB PO SCH (07:55)
[2017-01-07] MEDS: LIPASE 5,000/PROTEASE 17,000/AMYLASE 27,0000 PO SCH (07:55)
[2017-01-07] MEDS: FAMOTIDINE 20 MG TAB PO SCH (07:56)
[2017-01-07] MEDS: clonazePAM 1 MG TAB PO SCH (07:57)
[2017-01-07 09:12] VITALS: BP 109/64; PULSE 61; RESP 16; TEMP 96.7
[2017-01-07 11:17] VITALS: BMI 25.1
--- NOTE | 2017-01-07 12:11 | P.DS ---
Providers Date of admission: 01/05/17 06:56 Expected date of discharge: 01/07/17 Attending physician: Mike Borges Consults: 01/05/17 10:36 Consult Physician Routine Consulting Provider: Marlin Cohen Consult Reason/Comments: chronic diarrhea, colitis Do you want consulting provider notified?: Yes Primary care physician: Mike Borges [facility] Course: This is a 51-year-old female patient of [facility] with previous medical history significant for familial dyslipidemia, recurrent pancreatitis and chroni abdominal pain, thought to be due to hypertriglyceridemia, hypertension and hypertensive cardiovascular disease, diabetes mellitus type 2 with recurrent diabetic ketoacidosis as well as episodes of hyperosmolar nonketotic hyperglycemia, hypertensive cardiovascular disease, chronic pain syndrome, gastroparesis, gastroesophageal reflux disease, diabetic polyneuropathy. She presented to [facility] emergency center 3:00 in the morning after 2 hours of increased abdominal pain associated with the nausea and diarrhea patient stated that she started not feeling well yesterday in the evening and she did not take Lantus however she took 33 units of Lantus instead and the she checked her blood glucose level that was quite high greater than 600 since her glucometer goes to 600, so she ended up coming to the ER she was found to have a blood glucose level of greater than 600 and she did receive for a liter of normal saline, and she was started on insulin drip, her ketone levels are negative, however lactic acid was high at 9.6 subsequently after fluid resuscitation dropped down , patient ended up admitted to the hospital for hyperosmolar nonketotic hyperglycemia she was placed on insulin drip effortfully her blood glucose dropped from 600-302 hours subsequent to her insulin drip was discontinued and the patient was kept in the hospital and she was taken off her insulin drip and she was started on her insulin regimen, and she was started on clear liquid diet, there was some concern regarding mesenteric ischemia because the patient hyperlipidemia that is familial and the fact that she had a CT angiography of the abdomen that was negative last time does not 100% rule it out and I believe the patient will need to have a celiac angiogram that would be done as an outpatient as well however we have consult GI for possible colonoscopy to rule out any ischemia or other source of infectious etiology. 01/06: Patient's blood sugars are stable and her Levemir and Humalog will be changed back to her home dosing. Patient states the diarrhea has completely stopped. Patient has been seen by GI with plan for colonoscopy as an outpatient. Anticipate discharge home tomorrow. 01/07: Blood sugars are back to baseline she is running between 77 201. Patient stated that diarrhea has resolved. Patient will be discharged home today in stable condition and follow-up with Dr. Borges next week. She does have an appointment set up for colonoscopy. Discharge diagnoses: 1. Hyperosmolar nonketotic hyperglycemia. 2. History of diabetes mellitus type 2, insulin requiring 3. Hypertension and hypertensive cardiovascular disease with left ventricular hypertrophy 4. Hyperlipidemia 5. Diabetic polyneuropathy 6. Anxiety generalized disorder. 7. Depression, recurrent. 8. Gastroparesis 9. Chronic pancreatitis 10. GERD 11. DVT prophylaxis 12. Acute lactic acidosis of unclear etiology, the possibility of chronic mesenteric ischemia still need to be ruled out, patient did have a CT angiography of the abdomen last time he was negative for evidence of any super or inferior mesenteric artery stenosis, however I believe the patient would need to go for a celiac angiogram to rule that out 100%, as the patient has familial hyperlipidemia, patient will be seen in consultation by GI for colonoscopy to rule out other possible etiologies including nonspecific colitis or collagenous colitis. Discharge plan: Home tomorrow Impression and plan of care have been directed as dictated by the signing physician. Amanda Kumar nurse practitioner acting as scribe for signing physician. Patient Condition at Discharge: Fair Plan - Discharge Summary New Discharge Prescriptions: Continue Lisinopril [Zestril] 20 mg PO DAILY Fenofibrate [Lofibra] 160 mg PO HS tab Gabapentin [Neurontin] 200 mg PO BID cap Metoclopramide [Reglan] 5 mg PO ACHS tab Prochlorperazine [Compazine] 10 mg PO TID PRN #0 tab PRN Reason: Nausea Sertraline [Zoloft] 200 mg PO DAILY tab HYDROmorphone [Dilaudid] 2 mg PO Q8H PRN PRN Reason: Pain Multivitamins, Thera [Multivitamin (formulary)] 1 tab PO DAILY Calcium Carb-Vit D 500Mg-200Un [Oscal 500+D] 1 tab PO BID Atenolol [Tenormin] 100 mg PO DAILY Mirtazapine [Remeron] 45 mg PO HS Rosuvastatin Calcium [Crestor] 40 mg PO HS fentaNYL 25MCG/HR PATCH [Duragesic 25MCG/HR] 1 patch TRANSDERM Q72H #0 Insulin Aspart [NovoLOG Flexpen] 36 units SQ AC-SUPPER Insulin Aspart [NovoLOG Flexpen] 26 unit SQ AC-BRKFST Insulin Aspart [NovoLOG Flexpen] 26 unit SQ AC-LUNCH Pancreatic Enzymes Otc(Unknown) 1 cap PO AC-TID Cetirizine HCl [Zyrtec] 10 mg PO DAILY Niacin 1,000 mg PO HS clonazePAM [KlonoPIN] 2 mg PO HS Dicyclomine [Bentyl] 10 mg PO TID PRN #90 cap PRN Reason: Diarrhea Famotidine [Pepcid] 20 mg PO BID #0 Insulin Detemir [Levemir] 66 unit SQ HS Ondansetron Odt [Zofran ODT] 4 mg PO Q8HR PRN #20 tab PRN Reason: Nausea clonazePAM [KlonoPIN] 1 mg PO QAM Discharge Medication List Lisinopril [Zestril] 20 mg PO DAILY 09/09/13 [History] Fenofibrate [Lofibra] 160 mg PO HS tab 08/09/14 [Rx] Gabapentin [Neurontin] 200 mg PO BID cap 08/09/14 [Rx] Metoclopramide [Reglan] 5 mg PO ACHS tab 08/09/14 [Rx] Prochlorperazine [Compazine] 10 mg PO TID PRN #0 tab 08/09/14 [Rx] Sertraline [Zoloft] 200 mg PO DAILY tab 08/09/14 [Rx] HYDROmorphone [Dilaudid] 2 mg PO Q8H PRN 09/17/14 [History] Multivitamins, Thera [Multivitamin (formulary)] 1 tab PO DAILY 09/17/14 [History ] Atenolol [Tenormin] 100 mg PO DAILY 11/19/14 [History] Calcium Carb-Vit D 500Mg-200Un [Oscal 500+D] 1 tab PO BID 11/19/14 [History] Mirtazapine [Remeron] 45 mg PO HS 11/19/14 [History] Rosuvastatin Calcium [Crestor] 40 mg PO HS 11/19/14 [History] fentaNYL 25MCG/HR PATCH [Duragesic 25MCG/HR] 1 patch TRANSDERM Q72H #0 [Rx] Insulin Aspart [NovoLOG Flexpen] 26 unit SQ AC-BRKFST 10/14/15 [History] Insulin Aspart [NovoLOG Flexpen] 26 unit SQ AC-LUNCH 10/14/15 [History] Insulin Aspart [NovoLOG Flexpen] 36 units SQ AC-SUPPER 10/14/15 [History] Pancreatic Enzymes Otc(Unknown) 1 cap PO AC-TID 10/14/15 [History] Cetirizine HCl [Zyrtec] 10 mg PO DAILY 02/04/16 [History] Niacin 1,000 mg PO HS 02/04/16 [History] clonazePAM [KlonoPIN] 2 mg PO HS 02/04/16 [History] Dicyclomine [Bentyl] 10 mg PO TID PRN #90 cap 03/22/16 [Rx] Famotidine [Pepcid] 20 mg PO BID #0 03/22/16 [Rx] Insulin Detemir [Levemir] 66 unit SQ HS 07/21/16 [History] Ondansetron Odt [Zofran ODT] 4 mg PO Q8HR PRN #20 tab 07/21/16 [Rx] clonazePAM [KlonoPIN] 1 mg PO QAM 07/21/16 [History] Follow up Appointment(s)/Referral(s): Mike Borges MD [Primary Care Provider] - 1 Week (Pt wants to make own appointment. ) Marlin Cohen MD [STAFF PHYSICIAN] - (Outpatient colonoscopy with Dr. Cohen Thursday January 12, 2017 at [facility]. Presurgical screening to call patient with additional instructions and arrival time. GI office to provide sample bowel prep Prepopik; SuPrep not available; patient to leaf size picker herself. ) Patient Instructions/Handouts: Type 2 Diabetes in Adults (DC), Diabetic Hyperglycemia (DC) Activity/Diet/Wound Care/Special Instructions: Cardiac, diabetic diet. Discharge Disposition: HOME SELF-CARE
== END 2017-01-07 13:19 | disposition home or self-care (01) | DRG 638 ==
LOC: EC 03:15 → 4MS4W 06:56
PROVIDERS: ADMIT Internal Medicine; ATTEND Internal Medicine
DX: E11.00 Type 2 diabetes mellitus with hyperosmolarity without nonketotic hyperglycemic-hyperosmolar coma (NKHHC) (principal); E87.2 Acidosis; E11.42 Type 2 diabetes mellitus with diabetic polyneuropathy; K86.1 Other chronic pancreatitis; I10 Essential (primary) hypertension; K31.84 Gastroparesis; E78.5 Hyperlipidemia, unspecified; F41.1 Generalized anxiety disorder; F32.9 Major depressive disorder, single episode, unspecified; E11.43 Type 2 diabetes mellitus with diabetic autonomic (poly)neuropathy; K21.9 Gastro-esophageal reflux disease without esophagitis; I25.10 Atherosclerotic heart disease of native coronary artery without angina pectoris; G89.4 Chronic pain syndrome; F43.10 Post-traumatic stress disorder, unspecified; F41.0 Panic disorder [episodic paroxysmal anxiety]; E86.0 Dehydration; R19.7 Diarrhea, unspecified; Z88.8 Allergy status to other drugs, medicaments and biological substances; Z79.4 Long term (current) use of insulin; Z79.899 Other long term (current) drug therapy; Z80.3 Family history of malignant neoplasm of breast; Z90.49 Acquired absence of other specified parts of digestive tract
CPT/HCPCS: 36415; 80053; 80320; 81003; 82550; 82553; 83036; 83605; 83690; 83735; 84100; 84484; 85025; 85610; 85730; 87086; 93005; 96361; 96374; 96375; 96376; 99285

== ENCOUNTER 2017-03-02 00:40 | Inpatient (IN) | payer MEDICARE ==
[2017-03-02] MEDS ORDERED: MORPHINE SULFATE 10 MG/ML SYRINGE ONE (02:00)
[2017-03-02] MEDS ORDERED: SODIUM CHLORIDE 0.9% 1,000 ML BAG ONE (02:00)
[2017-03-02] MEDS ORDERED: ONDANSETRON 4 MG/2 ML VIAL ONE (02:00)
[2017-03-02] MEDS ORDERED: INSULIN REGULAR 100 UNIT/ML VIAL ONE (02:00)
[2017-03-02] MEDS ORDERED: PANTOPRAZOLE 40 MG/10 ML VIAL ONE (02:00)
[2017-03-02] MEDS ORDERED: HYDROmorphone 1 MG/ML 1 ML SYRINGE IVP STA (06:38)
[2017-03-02 07:17] LABS: Glucose,Whole Blood >600 mg/dL (75-99)
[2017-03-02 07:17] LABS: Glucose,Whole Blood 434 mg/dL (75-99)
[2017-03-02] MEDS ORDERED: SODIUM CHLORIDE 0.9% 1,000 ML IV ONE (07:17)
[2017-03-02 07:18] LABS: Glucose,Whole Blood 375 mg/dL (75-99)
[2017-03-02] MEDS ORDERED: INSULIN ASPART 100 UNIT/ML 1 ML 10 ML VIAL SQ SCH (07:30)
[2017-03-02] MEDS ORDERED: PROCHLORPERAZINE 10 MG TAB PO PRN (08:37)
[2017-03-02] MEDS ORDERED: DICYCLOMINE 10 MG CAP PO PRN (08:37)
[2017-03-02] MEDS ORDERED: HYDROmorphone 2 MG TAB PO PRN (08:37)
[2017-03-02] MEDS: ATENOLOL 50 MG TAB PO SCH (09:57)
[2017-03-02] MEDS: CALCIUM CARB-VIT D 500MG-200UN 1 EACH TAB PO SCH ×2 (09:57→21:23)
[2017-03-02] MEDS: FAMOTIDINE 20 MG TAB PO SCH ×2 (09:58→21:23)
[2017-03-02] MEDS: LISINOPRIL 20 MG TAB PO SCH (09:59)
[2017-03-02] MEDS: SERTRALINE 100 MG TAB PO SCH (09:59)
[2017-03-02] MEDS: GABAPENTIN 100 MG CAP PO SCH ×2 (09:59→21:24)
[2017-03-02] MEDS: LORATADINE 10 MG TAB PO SCH (09:59)
[2017-03-02] MEDS: HEPARIN SODIUM,PORCINE 5,000 UNIT/ML 1 ML VIAL SQ SCH ×2 (10:00→21:24)
[2017-03-02] MEDS: INSULIN ASPART 100 UNIT/ML 1 ML 10 ML VIAL SQ SCH ×6 (10:12→21:24)
[2017-03-02] MEDS: clonazePAM 1 MG TAB PO SCH ×2 (10:12→21:42)
[2017-03-02 12:49] LABS: Glucose,Whole Blood 306 mg/dL (75-99)
[2017-03-02] MEDS: MULTIVITAMINS, THERA 1 EACH TAB PO SCH (13:20)
[2017-03-02] MEDS: METOCLOPRAMIDE 5 MG TAB PO SCH ×3 (13:20→21:25)
[2017-03-02] MEDS: LIPASE 5,000/PROTEASE 17,000/AMYLASE 27,0000 PO SCH ×2 (13:20→17:31)
[2017-03-02] MEDS ORDERED: HYDROmorphone 1 MG/ML 1 ML SYRINGE IVP PRN (14:08)
[2017-03-02 14:57] VITALS: BMI 24.5
[2017-03-02] MEDS: ONDANSETRON 4 MG/2 ML VIAL IVP PRN (14:57)
--- NOTE | 2017-03-02 15:17 | P.HPIM ---
History of Present Illness H&P Date: 03/02/17 Chief Complaint: Hyperglycemia, abdominal pain This is a 51-year-old female patient of Dr. Borges with previous medical history significant for familial dyslipidemia, recurrent pancreatitis and chroni abdominal pain, thought to be due to hypertriglyceridemia, hypertension and hypertensive cardiovascular disease, diabetes mellitus type 2 with recurrent diabetic ketoacidosis as well as episodes of hyperosmolar nonketotic hyperglycemia, hypertensive cardiovascular disease, chronic pain syndrome, gastroparesis, gastroesophageal reflux disease, diabetic polyneuropathy. She presented to [facility] emergency center in the morning with complaints of abdominal pain, diarrhea in the emergency center, no vomiting. Blood sugar was greater than 600. Patient had a blood sugar greater than 662 with elevated lactic acid of 10.5 followed by 5.9 and received 3 L of IV fluids and started on insulin drip. Patient ended up admitted to the hospital for hyperosmolar nonketotic hyperglycemia she was transitioned to Levemir and scheduled Humalog along with Humalog scale. Patient was able to tolerate a full liquid diet for lunch. No nausea. She is requesting IV Dilaudid which was declined and patient became very upset and tearful. Full liquid diet will be started in the morning. Patient was to have an outpatient colonoscopy after her last hospitalization but she states she canceled this. Review of Systems All systems: negative Constitutional: Denies chills, Denies fever Eyes: denies blurred vision, denies pain Ears, nose, mouth and throat: Denies headache, Denies sore throat Cardiovascular: Denies chest pain, Denies shortness of breath Respiratory: Denies cough Gastrointestinal: Reports abdominal pain, Reports diarrhea, Denies nausea, Denies vomiting Genitourinary: Denies dysuria, Denies hematuria Musculoskeletal: Denies myalgias Integumentary: Denies pruritus, Denies rash Neurological: Denies numbness, Denies weakness Psychiatric: Denies anxiety, Denies depression Endocrine: Denies fatigue, Denies weight change Past Medical History Past Medical History: Coronary Artery Disease (CAD), Diabetes Mellitus, GERD/ Reflux, Hyperlipidemia, Hypertension, Syncope Additional Past Medical History / Comment(s): IDDM type II, recurrent DKA, episodes of hyperosmolar nonketonic hyperglycemia, hypertensive heart disease, chronic pain syndrome, hypertriglyceridemia, chronic pancreatitis, chronic abdominal pain, gastroparesis, severe GERD, diabetic polyneuropathy mostly in hands and alittle in feet bilaterally, infectious colitis. History of Any Multi-Drug Resistant Organisms: None Reported Past Surgical History: Cholecystectomy Additional Past Surgical History / Comment(s): Biliary stent through an ERCP that was performed at [facility] and stent removed 2007, lap jenn, colonoscopy, ERCP. Past Anesthesia/Blood Transfusion Reactions: No Reported Reaction Additional Past Anesthesia/Blood Transfusion Reaction / Comment(s): Pt has never received blood."CLAUSTERPHOBIA" Smoking Status: Never smoker - Past Family History Sister(s) Additional Family Medical History / Comment(s): Patient has 2 sisters with no major medical problems. Daughter(s) Additional Family Medical History / Comment(s): Patient has 2 daughters and one had mitral valve replacement. Son(s) Additional Family Medical History / Comment(s): She has one son with no major medical problems. Brother(s) Additional Family Medical History / Comment(s): Does not have any brothers. Father Family Medical History: No Reported History Additional Family Medical History / Comment(s): Father is 79 years of age with severe anxiety and was hospitalized for this at times. Mother Family Medical History: Cancer Additional Family Medical History / Comment(s): Mother of metastatic breast CA at the age of 42yrs. Medications and Allergies Home Medications Medication Instructions Recorded Confirmed Type Lisinopril [Zestril] 20 mg PO DAILY 09/09/13 03/02/17 History Fenofibrate [Lofibra] 160 mg PO HS tab 08/09/14 03/02/17 Rx Gabapentin [Neurontin] 200 mg PO BID cap 08/09/14 03/02/17 Rx Metoclopramide [Reglan] 5 mg PO ACHS tab 08/09/14 03/02/17 Rx Prochlorperazine [Compazine] 10 mg PO TID PRN #0 tab 08/09/14 03/02/17 Rx Sertraline [Zoloft] 200 mg PO DAILY tab 08/09/14 03/02/17 Rx HYDROmorphone [Dilaudid] 2 mg PO Q8H PRN 09/17/14 03/02/17 History Multivitamins, Thera [Multivitamin 1 tab PO DAILY 09/17/14 03/02/17 History (formulary)] Atenolol [Tenormin] 100 mg PO DAILY 11/19/14 03/02/17 History Calcium Carb-Vit D 500Mg-200Un 1 tab PO BID 11/19/14 03/02/17 History [Oscal 500+D] Mirtazapine [Remeron] 45 mg PO HS 11/19/14 03/02/17 History Rosuvastatin Calcium [Crestor] 40 mg PO HS 11/19/14 03/02/17 History fentaNYL 25MCG/HR PATCH [Duragesic 1 patch TRANSDERM Q72H #0 07/10/15 03/02/17 Rx 25MCG/HR] Insulin Aspart [NovoLOG Flexpen] 26 unit SQ AC-BRKFST 10/14/15 03/02/17 History Insulin Aspart [NovoLOG Flexpen] 26 unit SQ AC-LUNCH 10/14/15 03/02/17 History Insulin Aspart [NovoLOG Flexpen] 36 units SQ AC-SUPPER 10/14/15 03/02/17 History Pancreatic Enzymes Otc(Unknown) 1 cap PO AC-TID 10/14/15 03/02/17 History Cetirizine HCl [Zyrtec] 10 mg PO DAILY 02/04/16 03/02/17 History Niacin 1,000 mg PO HS 02/04/16 03/02/17 History clonazePAM [KlonoPIN] 2 mg PO HS 02/04/16 03/02/17 History Dicyclomine [Bentyl] 10 mg PO TID PRN #90 cap 03/22/16 03/02/17 Rx Famotidine [Pepcid] 20 mg PO BID #0 03/22/16 03/02/17 Rx Insulin Detemir [Levemir] 66 unit SQ HS 07/21/16 03/02/17 History clonazePAM [KlonoPIN] 1 mg PO QAM 07/21/16 03/02/17 History Allergies Allergy/AdvReac Type Severity Reaction Status Date / Time NSAIDS (Non-Steroidal Allergy Rash/Hives Verified 03/02/17 07:27 Anti-Inflamma Physical Exam Vitals: Intake and Output 03/01/17 03/02/17 03/02/17 22:59 06:59 14:59 Other: Voiding Method Toilet Weight 0 g Patient Weight 03/03/17 06:59 Weight 0 g General appearance: average body habitus, mild distress - EENT Eyes: anicteric sclerae, EOMI, PERRLA, no ptosis, no scleral icterus, normal appearance ENT: hearing grossly normal, NA/AT, normal oropharynx, no thrush Ears: bilateral: normal - Neck Neck: no lymphadenopathy, normal ROM, no rigidity, no stridor, no thyromegaly Carotids: bilateral: upstroke normal Thyroid: bilateral: normal size - Respiratory Respiratory: bilateral: diminished, negative: dullness, rales, rhonchi, wheezing , prolonged expiration, prolonged inspiration - Cardiovascular Rhythm: regular Heart sounds: normal: S1, S2 Abnormal Heart Sounds: no systolic murmur, no S3 Gallop, no S4 Gallop, no click - Gastrointestinal General gastrointestinal: normal bowel sounds, soft, no splenomegaly, no tenderness, no umbilical hernia, no ventral hernia - Integumentary Integumentary: normal, normal turgor - Neurologic Neurologic: CNII-XII intact - Musculoskeletal Musculoskeletal: generalized weakness, strength equal bilaterally - Psychiatric Psychiatric: A&O x's 3, appropriate affect, intact judgment & insight Results Labs: Abnormal Lab Results - Last 24 Hours (Table) 03/02/17 03/02/17 03/02/17 Range/Units 00:59 04:09 05:53 POC Glucose (mg/dL) >600 H 375 H 434 H (75-99) mg/dL Thrombosis Risk Factor Assmnt - DVT/VTE Prophylaxis DVT/VTE Prophylaxis: Pharmacologic Prophylaxis ordered Assessment and Plan Plan: 1. Hyperosmolar nonketotic hyperglycemia. IV fluid, monitor the patient was a very closely, and we'll start the patient on Levemir 66 units at bedtime along with her scheduled NovoLog and scale, continue clear liquid diet. Full liquid diet in the morning. 2. History of diabetes mellitus type 2, insulin requiring we will transition the patient back to Levemir 66 units at bedtime along with Humalog. 3. Hypertension and hypertensive cardiovascular disease with left ventricular hypertrophy we will continue the patient on atenolol 100 mg orally once every day as well as lisinopril 20 mg orally once every day. 4. Hyperlipidemia continue the patient on Crestor 40 mg orally once every day, fenofibrate 160 mg orally once every day,Niaspan 1000 g orally once every. 5. Diabetic polyneuropathy continue gabapentin 200 mg orally twice every day. 6. Anxiety generalized disorder. Continue Klonopin 2 milligram in the evening and 1 mg in the morning. 7. Depression, recurrent. Continue Zoloft 200 mg orally once every day. 8. Gastroparesis continue Reglan 5 mg before each meal 3 times every day. 9. Chronic pancreatitis continue IV fluid resuscitation as well as current pain management in the form of Dilaudid along with fentanyl patch. 10. GERD continue PPI. 11. DVT. Continue heparin 5000 units subcutaneously every 12 hours. 12. Acute lactic acidosis. 13. Full code. 14. Admit to inpatient. Estimated length of stay 2 midnights . Discharge plan: Return home Impression and plan of care have been directed as dictated by the signing physician. Amanda Kumar nurse practitioner acting as scribe for signing physician.
[2017-03-02 17:11] LABS: Glucose,Whole Blood 156 mg/dL (75-99)
[2017-03-02 20:56] LABS: Glucose,Whole Blood 114 mg/dL (75-99)
[2017-03-02] MEDS: ATORVASTATIN 80 MG TAB PO SCH (21:22)
[2017-03-02] MEDS: FENOFIBRATE 160 MG TAB PO SCH (21:23)
[2017-03-02] MEDS: INSULIN DETEMIR 100 UNIT/ML 10 ML VIAL SQ SCH (21:26)
[2017-03-02] MEDS: MIRTAZAPINE 45 MG TABLET PO SCH (21:26)
[2017-03-02] MEDS: NIACIN TR 500 MG CAPSULE.ER PO SCH (21:27)
[2017-03-03 02:08] LABS: Glucose,Whole Blood 157 mg/dL (75-99)
[2017-03-03 07:29] LABS: Glucose,Whole Blood 160 mg/dL (75-99)
[2017-03-03] MEDS: ONDANSETRON 4 MG/2 ML VIAL IVP PRN ×3 (07:58→21:19)
[2017-03-03] MEDS: CALCIUM CARB-VIT D 500MG-200UN 1 EACH TAB PO SCH ×2 (07:59→21:06)
[2017-03-03] MEDS: GABAPENTIN 100 MG CAP PO SCH ×2 (07:59→21:06)
[2017-03-03] MEDS: LORATADINE 10 MG TAB PO SCH (07:59)
[2017-03-03] MEDS: SERTRALINE 100 MG TAB PO SCH (07:59)
[2017-03-03] MEDS: HEPARIN SODIUM,PORCINE 5,000 UNIT/ML 1 ML VIAL SQ SCH ×2 (07:59→21:01)
[2017-03-03] MEDS: METOCLOPRAMIDE 5 MG TAB PO SCH ×4 (08:00→21:07)
[2017-03-03] MEDS: clonazePAM 1 MG TAB PO SCH ×2 (08:00→21:06)
[2017-03-03] MEDS: FAMOTIDINE 20 MG TAB PO SCH ×2 (08:00→21:06)
[2017-03-03] MEDS: LIPASE 5,000/PROTEASE 17,000/AMYLASE 27,0000 PO SCH ×3 (08:00→17:19)
[2017-03-03] MEDS: INSULIN ASPART 100 UNIT/ML 1 ML 10 ML VIAL SQ SCH ×7 (08:06→21:00)
[2017-03-03] MEDS: LISINOPRIL 20 MG TAB PO SCH (08:07)
[2017-03-03] MEDS: ATENOLOL 50 MG TAB PO SCH (08:07)
[2017-03-03 08:23] LABS: ALT 33 U/L (9-52); AST 18 U/L (14-36); Alkaline Phosphatase 77 U/L (38-126); Anion Gap 9 mmol/L; Blood Urea Nitrogen 8 mg/dL (7-17); Calcium 8.5 mg/dL (8.4-10.2); Carbon Dioxide 21 mmol/L (22-30); Chloride 112 mmol/L (98-107); Glucose 152 mg/dL (74-99); Non-African American GFR(MDRD) >60 (>60 ml/min/1.73 sqM); Potassium 3.2 mmol/L (3.5-5.1); Sodium 142 mmol/L (137-145); Total Bilirubin 0.6 mg/dL (0.2-1.3); Total Protein 5.1 g/dL (6.3-8.2)
[2017-03-03 12:02] LABS: Glucose,Whole Blood 152 mg/dL (75-99)
[2017-03-03] MEDS: MULTIVITAMINS, THERA 1 EACH TAB PO SCH (12:22)
[2017-03-03] MEDS: POTASSIUM CHLORIDE ER 20 MEQ TAB.ER PO SCH ×2 (14:09→15:03)
[2017-03-03 16:54] LABS: Glucose,Whole Blood 80 mg/dL (75-99)
[2017-03-03] MEDS: MAG HYDROX/AL HYDROX/SIMETH 30 ML CUP PO SCH ×2 (17:18→21:05)
[2017-03-03 20:47] LABS: Glucose,Whole Blood 103 mg/dL (75-99)
[2017-03-03] MEDS: INSULIN DETEMIR 100 UNIT/ML 10 ML VIAL SQ SCH (21:06)
[2017-03-03] MEDS: ATORVASTATIN 80 MG TAB PO SCH (21:06)
[2017-03-03] MEDS: FENOFIBRATE 160 MG TAB PO SCH (21:06)
[2017-03-03] MEDS: MIRTAZAPINE 45 MG TABLET PO SCH (21:07)
[2017-03-03] MEDS: NIACIN TR 500 MG CAPSULE.ER PO SCH (21:07)
[2017-03-04 02:31] LABS: Glucose,Whole Blood 154 mg/dL (75-99)
[2017-03-04 07:03] LABS: Glucose,Whole Blood 95 mg/dL (75-99)
[2017-03-04] MEDS: INSULIN ASPART 100 UNIT/ML 1 ML 10 ML VIAL SQ SCH ×4 (07:25→12:39)
[2017-03-04 07:37] VITALS: BP 124/73; PULSE 63; RESP 16; TEMP 97.8
[2017-03-04] MEDS: ATENOLOL 50 MG TAB PO SCH (07:52)
[2017-03-04] MEDS: SERTRALINE 100 MG TAB PO SCH (07:53)
[2017-03-04] MEDS: LIPASE 5,000/PROTEASE 17,000/AMYLASE 27,0000 PO SCH ×2 (07:53→12:39)
[2017-03-04] MEDS: clonazePAM 1 MG TAB PO SCH (07:53)
[2017-03-04] MEDS: CALCIUM CARB-VIT D 500MG-200UN 1 EACH TAB PO SCH (07:53)
[2017-03-04] MEDS: MAG HYDROX/AL HYDROX/SIMETH 30 ML CUP PO SCH ×2 (07:53→12:39)
[2017-03-04] MEDS: LISINOPRIL 20 MG TAB PO SCH (07:53)
[2017-03-04] MEDS: METOCLOPRAMIDE 5 MG TAB PO SCH ×2 (07:53→12:39)
[2017-03-04] MEDS: FAMOTIDINE 20 MG TAB PO SCH (07:53)
[2017-03-04] MEDS: LORATADINE 10 MG TAB PO SCH (07:53)
[2017-03-04] MEDS: GABAPENTIN 100 MG CAP PO SCH (07:53)
[2017-03-04] MEDS: HEPARIN SODIUM,PORCINE 5,000 UNIT/ML 1 ML VIAL SQ SCH (07:54)
--- NOTE | 2017-03-04 10:38 | P.PN ---
Subjective Progress Note Date: 03/03/17 This is a 51-year-old female patient of Dr. Borges with previous medical history significant for familial dyslipidemia, recurrent pancreatitis and chroni abdominal pain, thought to be due to hypertriglyceridemia, hypertension and hypertensive cardiovascular disease, diabetes mellitus type 2 with recurrent diabetic ketoacidosis as well as episodes of hyperosmolar nonketotic hyperglycemia, hypertensive cardiovascular disease, chronic pain syndrome, gastroparesis, gastroesophageal reflux disease, diabetic polyneuropathy. She presented to [facility] emergency center in the morning with complaints of abdominal pain, diarrhea in the emergency center, no vomiting. Blood sugar was greater than 600. Patient had a blood sugar greater than 662 with elevated lactic acid of 10.5 followed by 5.9 and received 3 L of IV fluids and started on insulin drip. Patient ended up admitted to the hospital for hyperosmolar nonketotic hyperglycemia she was transitioned to Levemir and scheduled Humalog along with Humalog scale. Patient was able to tolerate a full liquid diet for lunch. No nausea. She is requesting IV Dilaudid which was declined and patient became very upset and tearful. Full liquid diet will be started in the morning. Patient was to have an outpatient colonoscopy after her last hospitalization but she states she canceled this. 03/03: Patient has been able to tolerate soft diet which was started for breakfast. She was able to all of her breakfast. She is complaining of abdominal pain a #10 but refuses to take her oral pain medications. She states she is no better from yesterday. Potassium will be replaced. Patient will be started on Maalox. If patient continues to improve, plan for discharge after supper tonight. Diet will be advanced. Blood sugars are much improved with last one being 152. Patient was prepared for discharge home however she developed 1 episode of vomiting which was unwitnessed. Discharge held for today. Objective - Vital Signs Vital signs: Vital Signs Temp 97.7 F 03/03/17 14:53 Pulse 83 03/03/17 14:53 Resp 16 03/03/17 14:53 BP 104/56 03/03/17 14:53 Pulse Ox 96 03/03/17 14:53 Intake & Output 03/02/17 03/03/17 03/03/17 18:59 06:59 18:59 Intake Total 800 Balance 800 Weight 64.864 kg Intake: IV 800 Sodium Chloride 0.9% 1, 800 000 ml @ 100 mls/hr IV . Q10H ONE Rx#:[id number] Other: Voiding Method Toilet # Voids 3 0 4 - Exam General appearance: average body habitus, mild distress - EENT Eyes: anicteric sclerae, EOMI, PERRLA, no ptosis, no scleral icterus, normal appearance ENT: hearing grossly normal, NA/AT, normal oropharynx, no thrush Ears: bilateral: normal - Neck Neck: no lymphadenopathy, normal ROM, no rigidity, no stridor, no thyromegaly Carotids: bilateral: upstroke normal Thyroid: bilateral: normal size - Respiratory Respiratory: bilateral: diminished, negative: dullness, rales, rhonchi, wheezing , prolonged expiration, prolonged inspiration - Cardiovascular Rhythm: regular Heart sounds: normal: S1, S2 Abnormal Heart Sounds: no systolic murmur, no S3 Gallop, no S4 Gallop, no click - Gastrointestinal General gastrointestinal: normal bowel sounds, soft, no splenomegaly, no tenderness, no umbilical hernia, no ventral hernia - Integumentary Integumentary: normal, normal turgor - Neurologic Neurologic: CNII-XII intact - Musculoskeletal Musculoskeletal: generalized weakness, strength equal bilaterally - Psychiatric Psychiatric: A&O x's 3, appropriate affect, intact judgment & insight - Labs CBC & Chem 7: 03/03/17 07:28 Labs: Abnormal Lab Results - Last 24 Hours (Table) 03/02/17 03/02/17 03/03/17 Range/Units 17:02 20:54 02:06 Potassium (3.5-5.1) mmol/L Chloride (98-107) mmol/L Carbon Dioxide (22-30) mmol/L Glucose (74-99) mg/dL POC Glucose (mg/dL) 156 H 114 H 157 H (75-99) mg/dL Total Protein (6.3-8.2) g/dL Albumin (3.5-5.0) g/dL 03/03/17 03/03/17 03/03/17 Range/Units 07:27 07:28 11:49 Potassium 3.2 L (3.5-5.1) mmol/L Chloride 112 H (98-107) mmol/L Carbon Dioxide 21 L (22-30) mmol/L Glucose 152 H (74-99) mg/dL POC Glucose (mg/dL) 160 H 152 H (75-99) mg/dL Total Protein 5.1 L (6.3-8.2) g/dL Albumin 3.0 L (3.5-5.0) g/dL Assessment and Plan Plan: 1. Hyperosmolar nonketotic hyperglycemia. I Levemir 66 units at bedtime along with her scheduled NovoLog and scale, full liquid diet advance to soft. 2. History of diabetes mellitus type 2, insulin requiring we will transition the patient back to Levemir 66 units at bedtime along with Humalog. 3. Hypertension and hypertensive cardiovascular disease with left ventricular hypertrophy we will continue the patient on atenolol 100 mg orally once every day as well as lisinopril 20 mg orally once every day. 4. Hyperlipidemia continue the patient on Crestor 40 mg orally once every day, fenofibrate 160 mg orally once every day,Niaspan 1000 g orally once every. 5. Diabetic polyneuropathy continue gabapentin 200 mg orally twice every day. 6. Anxiety generalized disorder. Continue Klonopin 2 milligram in the evening and 1 mg in the morning. 7. Depression, recurrent. Continue Zoloft 200 mg orally once every day. 8. Gastroparesis continue Reglan 5 mg before each meal 3 times every day. 9. Chronic pancreatitis continue IV fluid resuscitation as well as current pain management in the form of Dilaudid along with fentanyl patch. 10. GERD continue PPI. 11. DVT. Continue heparin 5000 units subcutaneously every 12 hours. 12. Acute lactic acidosis. 13. Full code. 14. Admit to inpatient. Estimated length of stay 2 midnights . Discharge plan: Return home Impression and plan of care have been directed as dictated by the signing physician. Amanda Kumar nurse practitioner acting as scribe for signing physician.
[2017-03-04 11:41] LABS: Glucose,Whole Blood 228 mg/dL (75-99)
[2017-03-04] MEDS: MULTIVITAMINS, THERA 1 EACH TAB PO SCH (12:39)
--- NOTE | 2017-03-04 15:04 | P.DS ---
Providers Date of admission: 03/02/17 07:17 Expected date of discharge: 03/04/17 Attending physician: Vu Becerra Primary care physician: Mike Borges [facility] Course: This is a 51-year-old female patient of Dr. Borges with previous medical history significant for familial dyslipidemia, recurrent pancreatitis and chroni abdominal pain, thought to be due to hypertriglyceridemia, hypertension and hypertensive cardiovascular disease, diabetes mellitus type 2 with recurrent diabetic ketoacidosis as well as episodes of hyperosmolar nonketotic hyperglycemia, hypertensive cardiovascular disease, chronic pain syndrome, gastroparesis, gastroesophageal reflux disease, diabetic polyneuropathy. She presented to [facility] emergency center in the morning with complaints of abdominal pain, diarrhea in the emergency center, no vomiting. Blood sugar was greater than 600. Patient had a blood sugar greater than 662 with elevated lactic acid of 10.5 followed by 5.9 and received 3 L of IV fluids and started on insulin drip. Patient ended up admitted to the hospital for hyperosmolar nonketotic hyperglycemia she was transitioned to Levemir and scheduled Humalog along with Humalog scale. Patient was able to tolerate a full liquid diet for lunch. No nausea. She is requesting IV Dilaudid which was declined and patient became very upset and tearful. Full liquid diet will be started in the morning. Patient was to have an outpatient colonoscopy after her last hospitalization but she states she canceled this. 03/03: Patient has been able to tolerate soft diet which was started for breakfast. She was able to all of her breakfast. She is complaining of abdominal pain a #10 but refuses to take her oral pain medications. She states she is no better from yesterday. Potassium will be replaced. Patient will be started on Maalox. If patient continues to improve, plan for discharge after supper tonight. Diet will be advanced. Blood sugars are much improved with last one being 152.Patient was prepared for discharge home however she developed 1 episode of vomiting which was unwitnessed. Discharge held for today. IV access was lost and this was not resumed. 03/04: Blood sugars have been varying between 95 and 228. Patient is determining how much insulin she gets that each time. She is eating at this time with no nausea or vomiting. Patient will be discharged home today in stable condition. She understands that she needs to follow-up with Dr. Borges in the office. Discharge diagnoses: 1. Hyperosmolar nonketotic hyperglycemia. 2. History of diabetes mellitus type 2, insulin requiring 3. Hypertension and hypertensive cardiovascular disease with left ventricular hypertrophy 4. Hyperlipidemia 5. Diabetic polyneuropathy 6. Anxiety generalized disorder. 7. Depression, recurrent. 8. Gastroparesis 9. Chronic pancreatitis 10. GERD 11. Acute lactic acidosis. Discharge plan: Return home Impression and plan of care have been directed as dictated by the signing physician. Amanda Kumar nurse practitioner acting as scribe for signing physician. Patient Condition at Discharge: Good Plan - Discharge Summary Discharge Rx Participant: No New Discharge Prescriptions: New Mag Hydrox/Al Hydrox/Simeth [Maalox] 30 ml PO QID cup Continue Lisinopril [Zestril] 20 mg PO DAILY Fenofibrate [Lofibra] 160 mg PO HS tab Gabapentin [Neurontin] 200 mg PO BID cap Metoclopramide [Reglan] 5 mg PO ACHS tab Prochlorperazine [Compazine] 10 mg PO TID PRN #0 tab PRN Reason: Nausea Sertraline [Zoloft] 200 mg PO DAILY tab HYDROmorphone [Dilaudid] 2 mg PO Q8H PRN PRN Reason: Pain Multivitamins, Thera [Multivitamin (formulary)] 1 tab PO DAILY Calcium Carb-Vit D 500Mg-200Un [Oscal 500+D] 1 tab PO BID Atenolol [Tenormin] 100 mg PO DAILY Mirtazapine [Remeron] 45 mg PO HS Rosuvastatin Calcium [Crestor] 40 mg PO HS fentaNYL 25MCG/HR PATCH [Duragesic 25MCG/HR] 1 patch TRANSDERM Q72H #0 Insulin Aspart [NovoLOG Flexpen] 36 units SQ AC-SUPPER Insulin Aspart [NovoLOG Flexpen] 26 unit SQ AC-BRKFST Insulin Aspart [NovoLOG Flexpen] 26 unit SQ AC-LUNCH Pancreatic Enzymes Otc(Unknown) 1 cap PO AC-TID Cetirizine HCl [Zyrtec] 10 mg PO DAILY Niacin 1,000 mg PO HS clonazePAM [KlonoPIN] 2 mg PO HS Dicyclomine [Bentyl] 10 mg PO TID PRN #90 cap PRN Reason: Diarrhea Famotidine [Pepcid] 20 mg PO BID #0 Insulin Detemir [Levemir] 66 unit SQ HS clonazePAM [KlonoPIN] 1 mg PO QAM Discharge Medication List Lisinopril [Zestril] 20 mg PO DAILY 09/09/13 [History] Fenofibrate [Lofibra] 160 mg PO HS tab 08/09/14 [Rx] Gabapentin [Neurontin] 200 mg PO BID cap 08/09/14 [Rx] Metoclopramide [Reglan] 5 mg PO ACHS tab 08/09/14 [Rx] Prochlorperazine [Compazine] 10 mg PO TID PRN #0 tab 08/09/14 [Rx] Sertraline [Zoloft] 200 mg PO DAILY tab 08/09/14 [Rx] HYDROmorphone [Dilaudid] 2 mg PO Q8H PRN 09/17/14 [History] Multivitamins, Thera [Multivitamin (formulary)] 1 tab PO DAILY 09/17/14 [History ] Atenolol [Tenormin] 100 mg PO DAILY 11/19/14 [History] Calcium Carb-Vit D 500Mg-200Un [Oscal 500+D] 1 tab PO BID 11/19/14 [History] Mirtazapine [Remeron] 45 mg PO HS 11/19/14 [History] Rosuvastatin Calcium [Crestor] 40 mg PO HS 11/19/14 [History] fentaNYL 25MCG/HR PATCH [Duragesic 25MCG/HR] 1 patch TRANSDERM Q72H #0 07/10/15 [Rx] Insulin Aspart [NovoLOG Flexpen] 26 unit SQ AC-BRKFST 10/14/15 [History] Insulin Aspart [NovoLOG Flexpen] 26 unit SQ AC-LUNCH 10/14/15 [History] Insulin Aspart [NovoLOG Flexpen] 36 units SQ AC-SUPPER 10/14/15 [History] Pancreatic Enzymes Otc(Unknown) 1 cap PO AC-TID 10/14/15 [History] Cetirizine HCl [Zyrtec] 10 mg PO DAILY 02/04/16 [History] Niacin 1,000 mg PO HS 02/04/16 [History] clonazePAM [KlonoPIN] 2 mg PO HS 02/04/16 [History] Dicyclomine [Bentyl] 10 mg PO TID PRN #90 cap 03/22/16 [Rx] Famotidine [Pepcid] 20 mg PO BID #0 03/22/16 [Rx] Insulin Detemir [Levemir] 66 unit SQ HS 07/21/16 [History] clonazePAM [KlonoPIN] 1 mg PO QAM 07/21/16 [History] Mag Hydrox/Al Hydrox/Simeth [Maalox] 30 ml PO QID cup 03/03/17 [Rx] Follow up Appointment(s)/Referral(s): Mike Borges MD [Primary Care Provider] - 03/08/17 2:00 pm (With Reina MILES ) Patient Instructions/Handouts: Hyperlipidemia (DC) Activity/Diet/Wound Care/Special Instructions: Diabetic folder given Activity as tolerated. Cardiac, diabetic diet. Discharge Disposition: HOME SELF-CARE
== END 2017-03-04 13:19 | disposition home or self-care (01) | DRG 637 ==
LOC: EC 00:40 → 4MS4W 07:17
PROVIDERS: ADMIT Internal Medicine Geriatric Medicine; ATTEND Internal Medicine Geriatric Medicine
DX: E11.65 Type 2 diabetes mellitus with hyperglycemia (principal); E11.00 Type 2 diabetes mellitus with hyperosmolarity without nonketotic hyperglycemic-hyperosmolar coma (NKHHC); E87.0 Hyperosmolality and hypernatremia; E87.2 Acidosis; K31.84 Gastroparesis; K86.1 Other chronic pancreatitis; E11.42 Type 2 diabetes mellitus with diabetic polyneuropathy; E78.1 Pure hyperglyceridemia; F32.9 Major depressive disorder, single episode, unspecified; F41.1 Generalized anxiety disorder; G89.4 Chronic pain syndrome; I11.9 Hypertensive heart disease without heart failure; I25.10 Atherosclerotic heart disease of native coronary artery without angina pectoris; K21.9 Gastro-esophageal reflux disease without esophagitis; Z79.4 Long term (current) use of insulin; Z79.899 Other long term (current) drug therapy; Z80.3 Family history of malignant neoplasm of breast; Z88.6 Allergy status to analgesic agent
CPT/HCPCS: 36415; 80053; 99285

== ENCOUNTER → 2017-04-27 | Outpatient (CLI) | payer MEDICARE ==
[2017-04-27 11:00] LABS: Basophils # (A) 0.1 k/uL (0-0.2); Basophils % (A) 1 %; Eosinophils # (A) 0.1 k/uL (0-0.7); Eosinophils % (A) 2 %; HCT 41.7 % (34.0-46.0); HGB 13.9 gm/dL (11.4-16.0); Lymphocytes # (A) 3.1 k/uL (1.0-4.8); Lymphocytes % (A) 47 %; MCH 29.3 pg (25.0-35.0); MCHC 33.4 g/dL (31.0-37.0); MCV 87.9 fL (80.0-100.0); Mean Platelet Volume 6.6; Monocytes # (A) 0.3 k/uL (0-1.0); Monocytes % (A) 5 %; Neutrophils # (A) 2.9 k/uL (1.3-7.7); Neutrophils % (A) 43 %; Platelet Count 203 k/uL (150-450); RBC 4.74 m/uL (3.80-5.40); RDW 14.2 % (11.5-15.5); WBC 6.7 k/uL (3.8-10.6)
[2017-04-27 11:08] LABS: ALT 38 U/L (9-52); AST 29 U/L (14-36); Albumin 4.2 g/dL (3.5-5.0); Alkaline Phosphatase 122 U/L (38-126); Anion Gap 10 mmol/L; Blood Urea Nitrogen 15 mg/dL (7-17); Calcium 9.8 mg/dL (8.4-10.2); Carbon Dioxide 28 mmol/L (22-30); Chloride 102 mmol/L (98-107); Cholesterol 289 mg/dL (<200); Creatine Kinase 187 U/L (30-135); Glucose 301 mg/dL (74-99); HDL Cholesterol 37 mg/dL (40-60); Potassium 4.3 mmol/L (3.5-5.1); Sodium 140 mmol/L (137-145); Total Bilirubin 0.4 mg/dL (0.2-1.3); Total Protein 6.6 g/dL (6.3-8.2); Uric Acid 3.8 mg/dL (3.7-7.4)
[2017-04-27 11:23] LABS: T4, Free (Free Thyroxine) 0.77 ng/dL (0.78-2.19)
[2017-04-27 11:28] LABS: Triglycerides 782 mg/dL (<150)
[2017-04-27 12:13] LABS: Appearance,Urine Clear (Clear); Bacteria,Urine Occasional /hpf; Bilirubin,Urine Negative (Negative); Blood,Urine Negative (Negative); Color,Urine Yellow; Glucose,Urine (UA) 4+ (Negative); Ketones,Urine Negative (Negative); Leukocyte Esterase,Urine Large (Negative); Mucus,Urine Rare /hpf; Nitrite,Urine Negative (Negative); PH, Urine 5.5 (5.0-8.0); Protein,Urine Negative (Negative); RBC,Urine 14 /hpf (0-5); Specific Gravity,Urine 1.015 (1.001-1.035); Squamous Epithelial Cell,Urine 1 /hpf (0-4); Urobilinogen,Urine <2.0 mg/dL (<2.0); WBC,Urine 74 /hpf (0-5)
[2017-04-27 19:45] LABS: Hemoglobin A1C 9.8 % (4.0-6.0)
== END | disposition home or self-care (01) ==
LOC: LABWHC1 10:25
PROVIDERS: ATTEND Internal Medicine
DX: I10 Essential (primary) hypertension (principal); E78.00 Pure hypercholesterolemia, unspecified; E03.9 Hypothyroidism, unspecified; E11.69 Type 2 diabetes mellitus with other specified complication
CPT/HCPCS: 36415; 80053; 80061; 81001; 82043; 82550; 82570; 83036; 84439; 84443; 84550; 85025

== ENCOUNTER 2017-05-03 23:57 | Inpatient (IN) | payer MEDICARE ==
[2017-05-04] MEDS ORDERED: SODIUM CHLORIDE 0.9% 2,000 ML IV STA (00:17)
[2017-05-04] MEDS ORDERED: ONDANSETRON 4 MG/2 ML VIAL IVP STA (00:17)
[2017-05-04 00:27] LABS: Glucose,Whole Blood >600 mg/dL (75-99)
[2017-05-04] MEDS ORDERED: ACETAMINOPHEN IV (For NPO) 1,000 MG in EMPTY BAG 1 BAG IVPB STA (00:59)
[2017-05-04] MEDS ORDERED: PANTOPRAZOLE 40 MG/10 ML VIAL IVP STA (00:59)
[2017-05-04 01:18] LABS: Appearance,Urine Clear (Clear); Basophils % (A) 0 %; Bilirubin,Urine Negative (Negative); Blood,Urine Negative (Negative); Color,Urine Light Yellow; Eosinophils % (A) 0 %; Glucose,Urine (UA) 4+ (Negative); HCT 43.6 % (34.0-46.0); HGB 14.8 gm/dL (11.4-16.0); Ketones,Urine Negative (Negative); Leukocyte Esterase,Urine Negative (Negative); Lymphocytes # (A) 1.4 k/uL (1.0-4.8); Lymphocytes % (A) 22 %; MCH 31.5 pg (25.0-35.0); MCHC 33.9 g/dL (31.0-37.0); Mean Platelet Volume 6.5; Monocytes # (A) 0.1 k/uL (0-1.0); Monocytes % (A) 1 %; Neutrophils % (A) 75 %; Nitrite,Urine Negative (Negative); Platelet Count 174 k/uL (150-450); Protein,Urine Negative (Negative); RBC 4.69 m/uL (3.80-5.40); RDW 12.8 % (11.5-15.5); Specific Gravity,Urine 1.026 (1.001-1.035); Urobilinogen,Urine <2.0 mg/dL (<2.0); WBC 6.6 k/uL (3.8-10.6)
[2017-05-04 01:19] LABS: VBG PH 7.29 (7.31-7.41)
[2017-05-04 01:20] LABS: MCV 92.9 fL (80.0-100.0)
[2017-05-04] MEDS ORDERED: INSULIN REGULAR 100 UNIT/ML VIAL IV ONE (01:35)
[2017-05-04 01:36] LABS: ALT 31 U/L (9-52); Albumin 4.7 g/dL (3.5-5.0); Alkaline Phosphatase 142 U/L (38-126); Amylase 79 U/L (30-110); Anion Gap 24 mmol/L; Blood Urea Nitrogen 20 mg/dL (7-17); Carbon Dioxide 16 mmol/L (22-30); Chloride 98 mmol/L (98-107); Lipase 100 U/L (23-300); Potassium 4.4 mmol/L (3.5-5.1); Sodium 138 mmol/L (137-145); Total Bilirubin 0.5 mg/dL (0.2-1.3); Total Protein 7.6 g/dL (6.3-8.2)
[2017-05-04 01:54] LABS: AST 28 U/L (14-36)
--- NOTE | 2017-05-04 01:54 | ED ---
Recheck HPI - General Source: patient, RN notes reviewed Mode of arrival: ambulatory Limitations: no limitations <Chuck Hernandez - Last Filed: 05/04/17 01:51> <Pardeep Clarke - Last Filed: 05/04/17 02:02> - General Chief Complaint: Recheck/Abnormal Lab/Rx Stated Complaint: elevated BS Time Seen by Provider: 05/04/17 00:17 - History of Present Illness Initial Comments: 52-year-old female well-known to the emergency department presents today chief complaint nausea vomiting diarrhea abdominal pain no hyperglycemia. Patient states that her blood sugar has been reading high all day states that she gave some insulin earlier this evening. Patient states that her symptoms started approximately before. Patient denies any known fever, chills. Denies chest pain, shortness breath, headache, dizziness, dysuria or hematuria. Denies any hematemesis or coffee-ground emesis. Patient's is a diabetic and has a history of gastroparesis. (Chuck Hernandez) - Related Data Home Medications Medication Instructions Recorded Confirmed Lisinopril [Zestril] 20 mg PO DAILY 09/09/13 03/30/17 HYDROmorphone [Dilaudid] 2 mg PO Q8H PRN 09/17/14 03/30/17 Multivitamins, Thera [Multivitamin 1 tab PO DAILY 09/17/14 03/30/17 (formulary)] Atenolol [Tenormin] 100 mg PO DAILY 11/19/14 03/30/17 Calcium Carb-Vit D 500Mg-200Un 1 tab PO BID 11/19/14 03/30/17 [Oscal 500+D] Mirtazapine [Remeron] 45 mg PO HS 11/19/14 03/30/17 Rosuvastatin Calcium [Crestor] 40 mg PO HS 11/19/14 03/30/17 Insulin Aspart [NovoLOG Flexpen] 26 unit SQ AC-BRKFST 10/14/15 03/30/17 Insulin Aspart [NovoLOG Flexpen] 26 unit SQ AC-LUNCH 10/14/15 03/30/17 Insulin Aspart [NovoLOG Flexpen] 36 units SQ AC-SUPPER 10/14/15 03/30/17 Pancreatic Enzymes Otc(Unknown) 1 cap PO AC-TID 10/14/15 03/30/17 Cetirizine HCl [Zyrtec] 10 mg PO DAILY 02/04/16 03/30/17 Niacin 1,000 mg PO HS 02/04/16 03/30/17 clonazePAM [KlonoPIN] 2 mg PO HS 02/04/16 03/30/17 Insulin Detemir [Levemir] 66 unit SQ HS 07/21/16 03/30/17 clonazePAM [KlonoPIN] 1 mg PO QAM 07/21/16 03/30/17 Previous Rx's Medication Instructions Recorded Fenofibrate [Lofibra] 160 mg PO HS tab 08/09/14 Gabapentin [Neurontin] 200 mg PO BID cap 08/09/14 Metoclopramide [Reglan] 5 mg PO ACHS tab 08/09/14 Prochlorperazine [Compazine] 10 mg PO TID PRN #0 tab 08/09/14 Sertraline [Zoloft] 200 mg PO DAILY tab 08/09/14 fentaNYL 25MCG/HR PATCH [Duragesic 1 patch TRANSDERM Q72H #0 07/10/15 25MCG/HR] Dicyclomine [Bentyl] 10 mg PO TID PRN #90 cap 03/22/16 Famotidine [Pepcid] 20 mg PO BID #0 03/22/16 Mag Hydrox/Al Hydrox/Simeth 30 ml PO QID cup 03/03/17 [Maalox] Allergies Allergy/AdvReac Type Severity Reaction Status Date / Time NSAIDS (Non-Steroidal Allergy Rash/Hives Verified 05/04/17 00:05 Anti-Inflamma Review of Systems ROS Other: All systems not noted in ROS Statement are negative. <Chuck Hernandez - Last Filed: 05/04/17 01:51> ROS Other: All systems not noted in ROS Statement are negative. <Pardeep Clarke - Last Filed: 05/04/17 02:02> ROS Statement: Those systems with pertinent positive or pertinent negative responses have been documented in the HPI. Past Medical History Past Medical History: Coronary Artery Disease (CAD), Diabetes Mellitus, GERD/ Reflux, Hyperlipidemia, Hypertension, Syncope Additional Past Medical History / Comment(s): IDDM type II, recurrent DKA, episodes of hyperosmolar nonketonic hyperglycemia, hypertensive heart disease, chronic pain syndrome, hypertriglyceridemia, chronic pancreatitis, chronic abdominal pain, gastroparesis, severe GERD, diabetic polyneuropathy mostly in hands and alittle in feet bilaterally, infectious colitis. History of Any Multi-Drug Resistant Organisms: C-DIFF Date of last positivie culture/infection: pt. unsure MDRO Source:: stool Past Surgical History: Cholecystectomy Additional Past Surgical History / Comment(s): Biliary stent through an ERCP that was performed at [facility] and stent removed 2007, lap jenn, colonoscopy, ERCP. Past Anesthesia/Blood Transfusion Reactions: No Reported Reaction Additional Past Anesthesia/Blood Transfusion Reaction / Comment(s): Pt has never received blood."CLAUSTERPHOBIA" Past Psychological History: Anxiety, Depression, Panic Disorder, PTSD Smoking Status: Never smoker Past Alcohol Use History: Rare Past Drug Use History: None Reported - Past Family History Sister(s) Additional Family Medical History / Comment(s): Patient has 2 sisters with no major medical problems. Daughter(s) Additional Family Medical History / Comment(s): Patient has 2 daughters and one had mitral valve replacement. Son(s) Additional Family Medical History / Comment(s): She has one son with no major medical problems. Brother(s) Additional Family Medical History / Comment(s): Does not have any brothers. Father Family Medical History: No Reported History Additional Family Medical History / Comment(s): Father is 79 years of age with severe anxiety and was hospitalized for this at times. Mother Family Medical History: Cancer Additional Family Medical History / Comment(s): Mother of metastatic breast CA at the age of 42yrs. pt. states her grandmother had diabetes as well <Chuck Hernandez - Last Filed: 05/04/17 01:51> General Exam Limitations: no limitations General appearance: alert, in no apparent distress ENT exam: Present: normal oropharynx Neck exam: Present: normal inspection. Absent: tenderness, meningismus, lymphadenopathy Respiratory exam: Present: normal lung sounds bilaterally. Absent: respiratory distress, wheezes, rales, rhonchi, stridor Cardiovascular Exam: Present: regular rate, normal rhythm, normal heart sounds. Absent: systolic murmur, diastolic murmur, rubs, gallop, clicks GI/Abdominal exam: Present: soft, tenderness (Diffuse mild), normal bowel sounds. Absent: distended, guarding, rebound, rigid <Chuck Hernandez - Last Filed: 05/04/17 01:51> Course <Chuck Hernandez - Last Filed: 05/04/17 01:51> <Pardeep Clarke - Last Filed: 05/04/17 02:02> Vital Signs 05/04/17 05/04/17 00:00 01:28 Temperature 97.0 F L Pulse Rate 84 87 Respiratory 18 18 Rate Blood Pressure 130/72 114/57 O2 Sat by Pulse 98 94 L Oximetry - Reevaluation(s) Reevaluation #1: 05/04/17 01:53 Patient is requesting narcotic pain meds repetitively. I did offer the patient ofirmev though she refused to the nurse. (Chuck Hernandez) Medical Decision Making - Lab Data Result diagrams: 05/04/17 00:57 <Chuck Hernandez - Last Filed: 05/04/17 01:51> - Lab Data Result diagrams: 05/04/17 00:57 05/04/17 00:57 <Pardeep Clarke - Last Filed: 05/04/17 02:02> - Medical Decision Making Patient reevaluated by myself, Dr. Clarke. Patient resting comfortably in bed. Patient updated on results and plan. Case was discussed with Dr. Borges, who will admit his patient. (Pardeep Clarke) - Lab Data Lab Results 05/04/17 05/04/17 05/04/17 Range/Units 00:24 00:57 00:57 WBC 6.6 (3.8-10.6) k/uL RBC 4.69 (3.80-5.40) m/uL Hgb 14.8 (11.4-16.0) gm/dL Hct 43.6 (34.0-46.0) % MCV 92.9 D (80.0-100.0) fL MCH 31.5 (25.0-35.0) pg MCHC 33.9 (31.0-37.0) g/dL RDW 12.8 (11.5-15.5) % Plt Count 174 (150-450) k/uL Neutrophils % 75 % Lymphocytes % 22 % Monocytes % 1 % Eosinophils % 0 % Basophils % 0 % Neutrophils # 5.0 (1.3-7.7) k/uL Lymphocytes # 1.4 (1.0-4.8) k/uL Monocytes # 0.1 (0-1.0) k/uL Eosinophils # 0.0 (0-0.7) k/uL Basophils # 0.0 (0-0.2) k/uL VBG pH (7.31-7.41) VBG pCO2 (37-51) mmHg VBG HCO3 (24-28) mmol/L Sodium 138 (137-145) mmol/L Potassium 4.4 (3.5-5.1) mmol/L Chloride 98 (98-107) mmol/L Carbon Dioxide 16 L (22-30) mmol/L Anion Gap 24 mmol/L BUN 20 H (7-17) mg/dL Creatinine 0.70 (0.52-1.04) mg/dL Est GFR (MDRD) Af Amer >60 (>60 ml/min/1.73 sqM) Est GFR (MDRD) Non-Af >60 (>60 ml/min/1.73 sqM) Glucose 653 H* (74-99) mg/dL POC Glucose (mg/dL) >600 H (75-99) mg/dL POC Glu Filer And Sander ID Guerda Tong Calcium 10.0 (8.4-10.2) mg/dL Total Bilirubin 0.5 (0.2-1.3) mg/dL AST 28 (14-36) U/L ALT 31 (9-52) U/L Alkaline Phosphatase 142 H (38-126) U/L Total Protein 7.6 (6.3-8.2) g/dL Albumin 4.7 (3.5-5.0) g/dL Amylase 79 (30-110) U/L Lipase 100 (23-300) U/L Urine Color Urine Appearance (Clear) Urine pH (5.0-8.0) Ur Specific [place] (1.001-1.035) Urine Protein (Negative) Urine Glucose (UA) (Negative) Urine Ketones (Negative) Urine Blood (Negative) Urine Nitrite (Negative) Urine Bilirubin (Negative) Urine Urobilinogen (<2.0) mg/dL Ur Leukocyte Esterase (Negative) Acetone, Qual Positive (Negative) 05/04/17 05/04/17 Range/Units 00:57 00:57 WBC (3.8-10.6) k/uL RBC (3.80-5.40) m/uL Hgb (11.4-16.0) gm/dL Hct (34.0-46.0) % MCV (80.0-100.0) fL MCH (25.0-35.0) pg MCHC (31.0-37.0) g/dL RDW (11.5-15.5) % Plt Count (150-450) k/uL Neutrophils % % Lymphocytes % % Monocytes % % Eosinophils % % Basophils % % Neutrophils # (1.3-7.7) k/uL Lymphocytes # (1.0-4.8) k/uL Monocytes # (0-1.0) k/uL Eosinophils # (0-0.7) k/uL Basophils # (0-0.2) k/uL VBG pH 7.29 L (7.31-7.41) VBG pCO2 42 (37-51) mmHg VBG HCO3 20 L (24-28) mmol/L Sodium (137-145) mmol/L Potassium (3.5-5.1) mmol/L Chloride (98-107) mmol/L Carbon Dioxide (22-30) mmol/L Anion Gap mmol/L BUN (7-17) mg/dL Creatinine (0.52-1.04) mg/dL Est GFR (MDRD) Af Amer (>60 ml/min/1.73 sqM) Est GFR (MDRD) Non-Af (>60 ml/min/1.73 sqM) Glucose (74-99) mg/dL POC Glucose (mg/dL) (75-99) mg/dL POC Glu Filer And Sander ID Calcium (8.4-10.2) mg/dL Total Bilirubin (0.2-1.3) mg/dL AST (14-36) U/L ALT (9-52) U/L Alkaline Phosphatase (38-126) U/L Total Protein (6.3-8.2) g/dL Albumin (3.5-5.0) g/dL Amylase (30-110) U/L Lipase (23-300) U/L Urine Color Light Yellow Urine Appearance Clear (Clear) Urine pH 5.0 (5.0-8.0) Ur Specific [place] 1.026 (1.001-1.035) Urine Protein Negative (Negative) Urine Glucose (UA) 4+ H (Negative) Urine Ketones Negative (Negative) Urine Blood Negative (Negative) Urine Nitrite Negative (Negative) Urine Bilirubin Negative (Negative) Urine Urobilinogen <2.0 (<2.0) mg/dL Ur Leukocyte Esterase Negative (Negative) Acetone, Qual (Negative) Disposition Time of Disposition: 01:54 <Chuck Hernandez - Last Filed: 05/04/17 01:51> <Pardeep Clarke - Last Filed: 05/04/17 02:02> Clinical Impression: DKA (diabetic ketoacidoses) Disposition: ADMITTED IP TO THIS [facility] Condition: Stable Referrals: Mike Borges MD [Primary Care Provider] - 1-2 days
[2017-05-04 01:55] LABS: Glucose 653 mg/dL (74-99)
[2017-05-04] MEDS: INSULIN REGULAR 100 UNIT in SODIUM CHLORIDE 0.9% 100 ML IV SCH ×2 (02:07→11:15)
[2017-05-04 02:51] LABS: Glucose,Whole Blood 424 mg/dL (75-99)
[2017-05-04 03:06] VITALS: BMI 25.3
[2017-05-04 03:57] LABS: Glucose,Whole Blood 358 mg/dL (75-99)
[2017-05-04] MEDS: SODIUM CHLORIDE 0.9% 1,000 ML IV SCH ×4 (04:02→14:46)
[2017-05-04 04:55] LABS: Glucose,Whole Blood 375 mg/dL (75-99)
[2017-05-04 05:15] LABS: Anion Gap 19 mmol/L; Blood Urea Nitrogen 14 mg/dL (7-17); Carbon Dioxide 16 mmol/L (22-30); Chloride 106 mmol/L (98-107); Glucose 371 mg/dL (74-99); Magnesium 1.7 mg/dL (1.6-2.3); Phosphorus 3.6 mg/dL (2.5-4.5); Potassium 3.8 mmol/L (3.5-5.1); Sodium 141 mmol/L (137-145)
[2017-05-04 06:05] LABS: Glucose,Whole Blood >600 mg/dL (75-99)
[2017-05-04 06:05] LABS: Glucose,Whole Blood 355 mg/dL (75-99)
[2017-05-04] MEDS ORDERED: Potassium Replacement Protocol 1 EACH MISC MISCELLANE PRN (06:05)
[2017-05-04] MEDS ORDERED: Magnesium Replacement Protocol 1 EACH MISC MISCELLANE PRN (06:05)
[2017-05-04] MEDS ORDERED: PROCHLORPERAZINE 10 MG TAB PO PRN (06:25)
[2017-05-04] MEDS ORDERED: MAG HYDROX/AL HYDROX/SIMETH 30 ML CUP PO PRN (06:25)
[2017-05-04] MEDS ORDERED: DICYCLOMINE 10 MG CAP PO PRN (06:25)
[2017-05-04] MEDS ORDERED: POTASSIUM CHLORIDE ER 20 MEQ TAB.ER PO SCH (07:00)
[2017-05-04 07:04] LABS: Glucose,Whole Blood 259 mg/dL (75-99)
[2017-05-04] MEDS: MAGNESIUM SULFATE-D5W PMX 1 GM in DEXTROSE/WATER 1 100ML.BAG IVPB SCH ×2 (07:04→08:15)
[2017-05-04] MEDS: HYDROmorphone 2 MG/ML 1 ML SYRINGE IVP PRN ×4 (07:25→20:23)
[2017-05-04 08:11] LABS: Glucose,Whole Blood 207 mg/dL (75-99)
[2017-05-04] MEDS: D5-0.45% NACL WITH KCL 20MEQ/L 1,000 ML IV SCH ×3 (08:14→16:06)
[2017-05-04] MEDS: FAMOTIDINE 20 MG TAB PO SCH ×2 (08:15→20:23)
[2017-05-04] MEDS: METOCLOPRAMIDE 5 MG TAB PO SCH ×4 (08:15→20:23)
[2017-05-04] MEDS: CALCIUM CARB-VIT D 500MG-200UN 1 EACH TAB PO SCH ×2 (08:16→20:22)
[2017-05-04] MEDS: ATENOLOL 50 MG TAB PO SCH (08:16)
[2017-05-04] MEDS: LISINOPRIL 20 MG TAB PO SCH (08:17)
[2017-05-04] MEDS: GABAPENTIN 100 MG CAP PO SCH ×2 (08:17→20:22)
[2017-05-04] MEDS: LORATADINE 10 MG TAB PO SCH (08:17)
[2017-05-04] MEDS: MULTIVITAMINS, THERA 1 EACH TAB PO SCH (08:17)
[2017-05-04] MEDS: SERTRALINE 100 MG TAB PO SCH (08:17)
[2017-05-04] MEDS: clonazePAM 1 MG TAB PO SCH ×2 (08:21→20:22)
[2017-05-04 10:02] LABS: Glucose,Whole Blood 173 mg/dL (75-99)
[2017-05-04 10:08] LABS: Anion Gap 13 mmol/L; Blood Urea Nitrogen 11 mg/dL (7-17); Carbon Dioxide 18 mmol/L (22-30); Chloride 109 mmol/L (98-107); Glucose 198 mg/dL (74-99); Magnesium 2.4 mg/dL (1.6-2.3); Phosphorus 2.8 mg/dL (2.5-4.5); Potassium 3.9 mmol/L (3.5-5.1); Sodium 140 mmol/L (137-145)
[2017-05-04 11:11] LABS: Glucose,Whole Blood 143 mg/dL (75-99)
[2017-05-04 12:42] LABS: Glucose,Whole Blood 143 mg/dL (75-99)
--- NOTE | 2017-05-04 13:36 | P.HPIM ---
History of Present Illness H&P Date: 05/04/17 This is a 52-year-old female patient of Dr. Borges with previous medical history significant for familial dyslipidemia, recurrent pancreatitis and chroni abdominal pain, thought to be due to hypertriglyceridemia, hypertension and hypertensive cardiovascular disease, diabetes mellitus type 2 with recurrent diabetic ketoacidosis as well as episodes of hyperosmolar nonketotic hyperglycemia, hypertensive cardiovascular disease, chronic pain syndrome, gastroparesis, gastroesophageal reflux disease, diabetic polyneuropathy. She presented to [facility] emergency center with complaints of abdominal pain, diarrhea and vomiting and hyperglycemia. Blood glucose was 653, acetone positive, anion gap 24, lactic acid 7.9 and potassium of 4.4 with sodium 138. Venous blood gas pH was 7.29, pCO2 42 and bicarb 20. Urinalysis showed 4+ glucose. Patient was admitted to the intensive care unit as overflow for selective care and started on insulin drip. Patient has no active diarrhea. The patient will be started on clear liquid diet. Patient will be transitioned to home medications tonight starting with Levemir and off insulin drip. Review of Systems All systems: negative Constitutional: Denies chills, Denies fever Eyes: denies blurred vision, denies pain Ears, nose, mouth and throat: Denies headache, Denies sore throat Cardiovascular: Denies chest pain, Denies shortness of breath Respiratory: Denies cough Gastrointestinal: Reports abdominal pain, Reports diarrhea, Reports nausea, Reports vomiting Genitourinary: Denies dysuria, Denies hematuria Musculoskeletal: Denies myalgias Integumentary: Denies pruritus, Denies rash Neurological: Denies numbness, Denies weakness Psychiatric: Denies anxiety, Denies depression Endocrine: Denies fatigue, Denies weight change Past Medical History Past Medical History: Coronary Artery Disease (CAD), Diabetes Mellitus, GERD/ Reflux, Hyperlipidemia, Hypertension, Syncope Additional Past Medical History / Comment(s): IDDM type II, recurrent DKA, episodes of hyperosmolar nonketonic hyperglycemia, hypertensive heart disease, chronic pain syndrome, hypertriglyceridemia, chronic pancreatitis, chronic abdominal pain, gastroparesis, severe GERD, diabetic polyneuropathy mostly in hands and alittle in feet bilaterally, infectious colitis. History of Any Multi-Drug Resistant Organisms: C-DIFF Date of last positivie culture/infection: pt. unsure MDRO Source:: stool Past Surgical History: Cholecystectomy Additional Past Surgical History / Comment(s): Biliary stent through an ERCP that was performed at [facility] and stent removed 2007, lap jenn, colonoscopy, ERCP. Past Anesthesia/Blood Transfusion Reactions: No Reported Reaction Additional Past Anesthesia/Blood Transfusion Reaction / Comment(s): Pt has never received blood."CLAUSTERPHOBIA" Past Psychological History: Anxiety, Depression, Panic Disorder, PTSD Additional Psychological History / Comment(s): Pt lives in her home with her gadiel , son-in-law and 2 grandchildren. Pt. states it is organized chaos. She is independent. She currently is on disability. She drives a car a limited amount- family drive her places at times. She has anxiety and occasional anxiety-panic attacks. She sees Dr. Fink at [facility] and is councelled by Chad Samuels. She states her current psych med rigeme is working well. Her gadiel and dad help her out. She has a rescue dog. Smoking Status: Never smoker Past Alcohol Use History: Rare Past Drug Use History: None Reported - Past Family History Sister(s) Additional Family Medical History / Comment(s): Patient has 2 sisters with no major medical problems. Daughter(s) Additional Family Medical History / Comment(s): Patient has 2 daughters and one had mitral valve replacement. Son(s) Additional Family Medical History / Comment(s): She has one son with no major medical problems. Brother(s) Additional Family Medical History / Comment(s): Does not have any brothers. Father Family Medical History: No Reported History Additional Family Medical History / Comment(s): Father is 79 years of age with severe anxiety and was hospitalized for this at times. Mother Family Medical History: Cancer Additional Family Medical History / Comment(s): Mother of metastatic breast CA at the age of 42yrs. pt. states her grandmother had diabetes as well Medications and Allergies Home Medications Medication Instructions Recorded Confirmed Type Lisinopril [Zestril] 20 mg PO DAILY 09/09/13 05/04/17 History Fenofibrate [Lofibra] 160 mg PO HS tab 08/09/14 05/04/17 Rx Gabapentin [Neurontin] 200 mg PO BID cap 04/24/15 01/17/18 Rx Metoclopramide [Reglan] 5 mg PO ACHS tab 08/09/14 05/04/17 Rx Prochlorperazine [Compazine] 10 mg PO TID PRN #0 tab 08/09/14 05/04/17 Rx Sertraline [Zoloft] 200 mg PO DAILY tab 08/09/14 05/04/17 Rx HYDROmorphone [Dilaudid] 2 mg PO Q8H PRN 09/17/14 05/04/17 History Multivitamins, Thera [Multivitamin 1 tab PO DAILY 09/17/14 05/04/17 History (formulary)] Atenolol [Tenormin] 100 mg PO DAILY 11/19/14 05/04/17 History Calcium Carb-Vit D 500Mg-200Un 1 tab PO BID 11/19/14 05/04/17 History [Oscal 500+D] Mirtazapine [Remeron] 45 mg PO HS 11/19/14 05/04/17 History Rosuvastatin Calcium [Crestor] 40 mg PO HS 11/19/14 05/04/17 History fentaNYL 25MCG/HR PATCH [Duragesic 1 patch TRANSDERM Q72H #0 07/10/15 05/04/17 Rx 25MCG/HR] Insulin Aspart [NovoLOG Flexpen] 26 unit SQ AC-BRKFST 10/14/15 05/04/17 History Insulin Aspart [NovoLOG Flexpen] 26 unit SQ AC-LUNCH 10/14/15 05/04/17 History Insulin Aspart [NovoLOG Flexpen] 36 units SQ AC-SUPPER 10/14/15 05/04/17 History Pancreatic Enzymes Otc(Unknown) 1 cap PO AC-TID 10/14/15 05/04/17 History Cetirizine HCl [Zyrtec] 10 mg PO DAILY 02/04/16 05/04/17 History Niacin 1,000 mg PO HS 02/04/16 05/04/17 History clonazePAM [KlonoPIN] 2 mg PO HS 02/04/16 05/04/17 History Dicyclomine [Bentyl] 10 mg PO TID PRN #90 cap 03/22/16 05/04/17 Rx Famotidine [Pepcid] 20 mg PO BID #0 03/22/16 05/04/17 Rx Insulin Detemir [Levemir] 66 unit SQ HS 07/21/16 05/04/17 History clonazePAM [KlonoPIN] 1 mg PO QAM 07/21/16 05/04/17 History Mag Hydrox/Al Hydrox/Simeth 30 ml PO QID PRN 05/04/17 05/04/17 History [Maalox] Allergies Allergy/AdvReac Type Severity Reaction Status Date / Time NSAIDS (Non-Steroidal Allergy Rash/Hives Verified 05/04/17 07:27 Anti-Inflamma Physical Exam Vitals: Vital Signs Temp Pulse Resp BP Pulse Ox 05/04/17 04:00 97.8 F 91 21 111/54 96 05/04/17 02:50 97.8 F 84 16 134/81 96 05/04/17 02:32 97.4 F L 87 185 H 114/59 96 05/04/17 01:28 87 18 114/57 94 L 05/04/17 00:00 97.0 F L 84 18 130/72 98 Intake and Output 05/03/17 05/04/17 05/04/17 22:59 06:59 14:59 Intake Total 2432.694 10.817 Output Total 500 Balance 1932.694 10.817 Intake: IV 2400 0.9 400 0.9 bolus x2 2000 Intake, IV Titration 32.694 10.817 Amount Insulin Regular 100 unit 32.694 10.817 In Sodium Chloride 0.9% 100 ml @ 0.1 UNITS/KG/HR 6.64 mls/hr IV .[id number] [facility] Rx#:[id number] Output: Urine 500 Other: Voiding Method Toilet Weight 66.9 kg General appearance: average body habitus, mild distress - EENT Eyes: anicteric sclerae, EOMI, PERRLA, no ptosis, no scleral icterus, normal appearance ENT: hearing grossly normal, NA/AT, normal oropharynx, no thrush Ears: bilateral: normal - Neck Neck: no lymphadenopathy, normal ROM, no rigidity, no stridor, no thyromegaly Carotids: bilateral: upstroke normal Thyroid: bilateral: normal size - Respiratory Respiratory: bilateral: diminished, negative: dullness, rales, rhonchi, wheezing , prolonged expiration, prolonged inspiration - Cardiovascular Rhythm: regular Heart sounds: normal: S1, S2 Abnormal Heart Sounds: no systolic murmur, no S3 Gallop, no S4 Gallop, no click - Gastrointestinal General gastrointestinal: normal bowel sounds, soft, no splenomegaly, no tenderness, no umbilical hernia, no ventral hernia - Integumentary Integumentary: normal, normal turgor - Neurologic Neurologic: CNII-XII intact - Musculoskeletal Musculoskeletal: generalized weakness, strength equal bilaterally - Psychiatric Psychiatric: A&O x's 3, appropriate affect, intact judgment & insight Results CBC & Chem 7: 05/04/17 00:57 05/04/17 09:24 Labs: Abnormal Lab Results - Last 24 Hours (Table) 05/04/17 05/04/17 05/04/17 Range/Units 00:24 00:57 00:57 VBG pH (7.31-7.41) VBG HCO3 (24-28) mmol/L Carbon Dioxide 16 L (22-30) mmol/L BUN 20 H (7-17) mg/dL Glucose 653 H* (74-99) mg/dL POC Glucose (mg/dL) >600 H (75-99) mg/dL Alkaline Phosphatase 142 H (38-126) U/L Urine Glucose (UA) 4+ H (Negative) 05/04/17 05/04/17 05/04/17 Range/Units 00:57 02:48 03:54 VBG pH 7.29 L (7.31-7.41) VBG HCO3 20 L (24-28) mmol/L Carbon Dioxide (22-30) mmol/L BUN (7-17) mg/dL Glucose (74-99) mg/dL POC Glucose (mg/dL) 424 H 358 H (75-99) mg/dL Alkaline Phosphatase (38-126) U/L Urine Glucose (UA) (Negative) 05/04/17 05/04/17 05/04/17 Range/Units 04:43 04:52 06:00 VBG pH (7.31-7.41) VBG HCO3 (24-28) mmol/L Carbon Dioxide 16 L (22-30) mmol/L BUN (7-17) mg/dL Glucose 371 H (74-99) mg/dL POC Glucose (mg/dL) 375 H >600 H (75-99) mg/dL Alkaline Phosphatase (38-126) U/L Urine Glucose (UA) (Negative) 05/04/17 05/04/17 05/04/17 Range/Units 06:02 07:03 08:08 VBG pH (7.31-7.41) VBG HCO3 (24-28) mmol/L Carbon Dioxide (22-30) mmol/L BUN (7-17) mg/dL Glucose (74-99) mg/dL POC Glucose (mg/dL) 355 H 259 H 207 H (75-99) mg/dL Alkaline Phosphatase (38-126) U/L Urine Glucose (UA) (Negative) Thrombosis Risk Factor Assmnt - Choose All That Apply Any of the Below Risk Factors Present?: Yes Each Factor Represents 1 point: Age 41-60 years, Obesity (BMI >25) Other Risk Factors: No Other congenital or acquired thrombophilia - If yes, enter type in comment: No Thrombosis Risk Factor Assessment Total Risk Factor Score: 2 Thrombosis Risk Factor Assessment Level: Low Risk Assessment and Plan Plan: 1. DKA. IV fluid, insulin drip per protocol. Patient will be transition to Levemir 66 units at bedtime along with her scheduled NovoLog and scale, continue clear liquid diet. Clear liquid diet . 2. History of diabetes mellitus type 2, insulin requiring we will transition the patient back to Levemir 66 units at bedtime along with Humalog. 3. Hypertension and hypertensive cardiovascular disease with left ventricular hypertrophy we will continue the patient on atenolol 100 mg orally once every day as well as lisinopril 20 mg orally once every day. 4. Hyperlipidemia continue the patient on Crestor 40 mg orally once every day, fenofibrate 160 mg orally once every day,Niaspan 1000 g orally once every. 5. Diabetic polyneuropathy continue gabapentin 200 mg orally twice every day. 6. Anxiety generalized disorder. Continue Klonopin 2 milligram in the evening and 1 mg in the morning. 7. Depression, recurrent. Continue Zoloft 200 mg orally once every day. 8. Gastroparesis continue Reglan 5 mg before each meal 3 times every day. 9. Chronic pancreatitis continue IV fluid resuscitation as well as current pain management in the form of Dilaudid along with fentanyl patch. 10. GERD continue PPI. 11. DVT. Continue heparin 5000 units subcutaneously every 12 hours. 12. Acute lactic acidosis. 13. Full code. 14. Admit to inpatient. Estimated length of stay 2 midnights . Discharge plan: Return home Impression and plan of care have been directed as dictated by the signing physician. Amanda Kumar nurse practitioner acting as scribe for signing physician.
[2017-05-04 14:13] LABS: Glucose,Whole Blood 188 mg/dL (75-99)
[2017-05-04] MEDS: LIPASE 5,000/PROTEASE 17,000/AMYLASE 27,0000 PO SCH ×2 (14:47→17:23)
[2017-05-04 15:33] LABS: Glucose,Whole Blood 241 mg/dL (75-99)
[2017-05-04 16:38] LABS: Glucose,Whole Blood 233 mg/dL (75-99)
[2017-05-04 17:12] LABS: Glucose,Whole Blood 168 mg/dL (75-99)
[2017-05-04] MEDS ORDERED: INSULIN ASPART 100 UNIT/ML 1 ML 10 ML VIAL SQ SCH (17:30)
[2017-05-04 18:18] LABS: Glucose,Whole Blood 149 mg/dL (75-99)
[2017-05-04 19:03] LABS: Glucose,Whole Blood 200 mg/dL (75-99)
[2017-05-04 20:07] LABS: Glucose,Whole Blood 159 mg/dL (75-99)
[2017-05-04] MEDS: NIACIN TR 250 MG CAPSULE.ER PO SCH (20:22)
[2017-05-04] MEDS: ATORVASTATIN 80 MG TAB PO SCH (20:23)
[2017-05-04] MEDS: INSULIN DETEMIR 100 UNIT/ML 10 ML VIAL SQ SCH (20:24)
[2017-05-04] MEDS: MIRTAZAPINE 45 MG TABLET PO SCH (20:28)
[2017-05-04] MEDS ORDERED: FENOFIBRATE 160 MG TAB PO SCH (21:00)
[2017-05-05] MEDS: HYDROmorphone 2 MG/ML 1 ML SYRINGE IVP PRN ×5 (04:07→22:52)
[2017-05-05 06:12] LABS: Glucose,Whole Blood 133 mg/dL (75-99)
[2017-05-05] MEDS: METOCLOPRAMIDE 5 MG TAB PO SCH ×4 (06:37→22:01)
[2017-05-05] MEDS: LIPASE 5,000/PROTEASE 17,000/AMYLASE 27,0000 PO SCH ×3 (06:37→17:55)
[2017-05-05] MEDS: INSULIN ASPART 100 UNIT/ML 1 ML 10 ML VIAL SQ SCH ×2 (07:20→13:43)
[2017-05-05] MEDS: GABAPENTIN 100 MG CAP PO SCH ×2 (08:24→22:00)
[2017-05-05] MEDS: SERTRALINE 100 MG TAB PO SCH (08:24)
[2017-05-05] MEDS: clonazePAM 1 MG TAB PO SCH ×2 (08:24→22:00)
[2017-05-05] MEDS: FAMOTIDINE 20 MG TAB PO SCH ×2 (08:25→22:01)
[2017-05-05] MEDS: LORATADINE 10 MG TAB PO SCH (08:26)
[2017-05-05] MEDS: MULTIVITAMINS, THERA 1 EACH TAB PO SCH (08:26)
[2017-05-05 10:31] LABS: Anion Gap 10 mmol/L; Blood Urea Nitrogen 6 mg/dL (7-17); Calcium 9.6 mg/dL (8.4-10.2); Carbon Dioxide 23 mmol/L (22-30); Chloride 108 mmol/L (98-107); Glucose 180 mg/dL (74-99); Potassium 3.7 mmol/L (3.5-5.1); Sodium 141 mmol/L (137-145)
[2017-05-05] MEDS: CALCIUM CARB-VIT D 500MG-200UN 1 EACH TAB PO SCH ×2 (10:48→22:00)
[2017-05-05 11:31] LABS: Glucose,Whole Blood 139 mg/dL (75-99)
--- NOTE | 2017-05-05 12:28 | P.PN ---
Subjective Progress Note Date: 05/05/17 This is a 52-year-old female patient of Dr. Borges with previous medical history significant for familial dyslipidemia, recurrent pancreatitis and chroni abdominal pain, thought to be due to hypertriglyceridemia, hypertension and hypertensive cardiovascular disease, diabetes mellitus type 2 with recurrent diabetic ketoacidosis as well as episodes of hyperosmolar nonketotic hyperglycemia, hypertensive cardiovascular disease, chronic pain syndrome, gastroparesis, gastroesophageal reflux disease, diabetic polyneuropathy. She presented to [facility] emergency center with complaints of abdominal pain, diarrhea and vomiting and hyperglycemia. Blood glucose was 653, acetone positive, anion gap 24, lactic acid 7.9 and potassium of 4.4 with sodium 138. Venous blood gas pH was 7.29, pCO2 42 and bicarb 20. Urinalysis showed 4+ glucose. Patient was admitted to the intensive care unit as overflow for selective care and started on insulin drip. Patient has no active diarrhea. The patient will be started on clear liquid diet. Patient will be transitioned to home medications tonight starting with Levemir and off insulin drip. 05/05: Blood sugars are running 139-159. Patient has been transitioned over to her Levemir and scheduled Humalog. Her diet is currently full liquid and will be advanced to soft for lunch. Patient is complaining of diarrhea. Blood pressure was low this morning and lisinopril and atenolol were held. Patient did receive IV Dilaudid and fentanyl patch at that time. Parameters will be placed for blood pressure medicines. Anticipate discharge home tomorrow. Objective - Vital Signs Vital signs: Vital Signs Temp 97.3 F L 05/05/17 08:00 Pulse 74 05/05/17 08:00 Resp 16 05/05/17 08:00 BP 108/70 05/05/17 08:00 Pulse Ox 97 05/05/17 08:00 Intake & Output 05/04/17 05/05/17 05/05/17 18:59 06:59 18:59 Intake Total 1268.306 Output Total 500 Balance 768.306 Weight 66.9 kg 66.6 kg Intake: Intake, IV Titration 668.306 Amount D5-0.45% NaCl with KCl 600 20Meq/l 1,000 ml @ 150 mls/hr IV .[id number] [facility] Rx# :[id number] Insulin Regular 100 unit 68.306 In Sodium Chloride 0.9% 100 ml @ 0.1 UNITS/KG/HR 6.64 mls/hr IV .[id number] [facility] Rx#:[id number] Oral 600 Output: Urine 500 Other: Voiding Method Toilet Toilet # Voids 2 1 # Bowel Movements 0 - Exam General appearance: average body habitus, mild distress - EENT Eyes: anicteric sclerae, EOMI, PERRLA, no ptosis, no scleral icterus, normal appearance ENT: hearing grossly normal, NA/AT, normal oropharynx, no thrush Ears: bilateral: normal - Neck Neck: no lymphadenopathy, normal ROM, no rigidity, no stridor, no thyromegaly Carotids: bilateral: upstroke normal Thyroid: bilateral: normal size - Respiratory Respiratory: bilateral: diminished, negative: dullness, rales, rhonchi, wheezing , prolonged expiration, prolonged inspiration - Cardiovascular Rhythm: regular Heart sounds: normal: S1, S2 Abnormal Heart Sounds: no systolic murmur, no S3 Gallop, no S4 Gallop, no click - Gastrointestinal General gastrointestinal: normal bowel sounds, soft, no splenomegaly, no tenderness, no umbilical hernia, no ventral hernia - Integumentary Integumentary: normal, normal turgor - Neurologic Neurologic: CNII-XII intact - Musculoskeletal Musculoskeletal: generalized weakness, strength equal bilaterally - Psychiatric Psychiatric: A&O x's 3, appropriate affect, intact judgment & insight - Labs CBC & Chem 7: 05/04/17 00:57 05/05/17 09:54 Labs: Abnormal Lab Results - Last 24 Hours (Table) 05/04/17 05/04/17 05/04/17 Range/Units 09:24 10:00 11:09 Chloride 109 H (98-107) mmol/L Carbon Dioxide 18 L (22-30) mmol/L Creatinine 0.51 L (0.52-1.04) mg/dL Glucose 198 H (74-99) mg/dL POC Glucose (mg/dL) 173 H 143 H (75-99) mg/dL Magnesium 2.4 H (1.6-2.3) mg/dL 05/04/17 05/04/17 05/04/17 Range/Units 12:40 14:11 15:11 Chloride (98-107) mmol/L Carbon Dioxide (22-30) mmol/L Creatinine (0.52-1.04) mg/dL Glucose (74-99) mg/dL POC Glucose (mg/dL) 143 H 188 H 241 H (75-99) mg/dL Magnesium (1.6-2.3) mg/dL 05/04/17 05/04/17 05/04/17 Range/Units 16:16 17:01 17:58 Chloride (98-107) mmol/L Carbon Dioxide (22-30) mmol/L Creatinine (0.52-1.04) mg/dL Glucose (74-99) mg/dL POC Glucose (mg/dL) 233 H 168 H 149 H (75-99) mg/dL Magnesium (1.6-2.3) mg/dL 05/04/17 05/04/17 05/05/17 Range/Units 19:01 20:00 06:11 Chloride (98-107) mmol/L Carbon Dioxide (22-30) mmol/L Creatinine (0.52-1.04) mg/dL Glucose (74-99) mg/dL POC Glucose (mg/dL) 200 H 159 H 133 H (75-99) mg/dL Magnesium (1.6-2.3) mg/dL Assessment and Plan Plan: 1. DKA. IV fluid, insulin drip per protocol. Patient will be transition to Levemir 66 units at bedtime along with her scheduled NovoLog and scale, continue clear liquid diet. Clear liquid diet . 2. History of diabetes mellitus type 2, insulin requiring we will transition the patient back to Levemir 66 units at bedtime along with Humalog. 3. Hypertension and hypertensive cardiovascular disease with left ventricular hypertrophy we will continue the patient on atenolol 100 mg orally once every day as well as lisinopril 20 mg orally once every day. 4. Hyperlipidemia continue the patient on Crestor 40 mg orally once every day, fenofibrate 160 mg orally once every day,Niaspan 1000 g orally once every. 5. Diabetic polyneuropathy continue gabapentin 200 mg orally twice every day. 6. Anxiety generalized disorder. Continue Klonopin 2 milligram in the evening and 1 mg in the morning. 7. Depression, recurrent. Continue Zoloft 200 mg orally once every day. 8. Gastroparesis continue Reglan 5 mg before each meal 3 times every day. 9. Chronic pancreatitis continue IV fluid resuscitation as well as current pain management in the form of Dilaudid along with fentanyl patch. 10. GERD continue PPI. 11. DVT. Continue heparin 5000 units subcutaneously every 12 hours. 12. Acute lactic acidosis. 13. Full code. Discharge plan: Return home tomorrow Impression and plan of care have been directed as dictated by the signing physician. Amanda Kumar nurse practitioner acting as scribe for signing physician.
[2017-05-05] MEDS: ATENOLOL 50 MG TAB PO SCH (13:37)
[2017-05-05] MEDS: LISINOPRIL 20 MG TAB PO SCH (13:38)
[2017-05-05 17:26] LABS: Glucose,Whole Blood 105 mg/dL (75-99)
[2017-05-05] MEDS ORDERED: INSULIN ASPART 100 UNIT/ML 1 ML 10 ML VIAL SQ SCH ×2 (17:30)
[2017-05-05] MEDS: GEMFIBROZIL 600 MG TAB PO SCH (17:55)
[2017-05-05 20:08] VITALS: RESP 16
[2017-05-05 20:22] LABS: Glucose,Whole Blood 129 mg/dL (75-99)
[2017-05-05] MEDS: NIACIN TR 250 MG CAPSULE.ER PO SCH (22:00)
[2017-05-05] MEDS: ATORVASTATIN 80 MG TAB PO SCH (22:00)
[2017-05-05] MEDS: MIRTAZAPINE 45 MG TABLET PO SCH (22:00)
[2017-05-05] MEDS: INSULIN DETEMIR 100 UNIT/ML 10 ML VIAL SQ SCH (22:01)
[2017-05-06 03:45] LABS: Glucose,Whole Blood 241 mg/dL (75-99)
[2017-05-06] MEDS: HYDROmorphone 2 MG/ML 1 ML SYRINGE IVP PRN (06:17)
[2017-05-06 07:24] LABS: Glucose,Whole Blood 216 mg/dL (75-99)
[2017-05-06 08:01] VITALS: BP 103/66; PULSE 64; TEMP 97.6
[2017-05-06] MEDS: clonazePAM 1 MG TAB PO SCH (08:18)
[2017-05-06] MEDS: INSULIN ASPART 100 UNIT/ML 1 ML 10 ML VIAL SQ SCH ×2 (08:18→12:33)
[2017-05-06] MEDS: METOCLOPRAMIDE 5 MG TAB PO SCH ×2 (08:19→12:35)
[2017-05-06] MEDS: GEMFIBROZIL 600 MG TAB PO SCH (08:19)
[2017-05-06] MEDS: LIPASE 5,000/PROTEASE 17,000/AMYLASE 27,0000 PO SCH ×2 (08:19→12:35)
[2017-05-06] MEDS: GABAPENTIN 100 MG CAP PO SCH (08:20)
[2017-05-06] MEDS: CALCIUM CARB-VIT D 500MG-200UN 1 EACH TAB PO SCH (08:20)
[2017-05-06] MEDS: FAMOTIDINE 20 MG TAB PO SCH (08:20)
[2017-05-06] MEDS: MULTIVITAMINS, THERA 1 EACH TAB PO SCH (08:21)
[2017-05-06] MEDS: LORATADINE 10 MG TAB PO SCH (08:21)
[2017-05-06] MEDS: LISINOPRIL 20 MG TAB PO SCH (08:23)
[2017-05-06] MEDS: ATENOLOL 50 MG TAB PO SCH (08:23)
[2017-05-06 11:47] LABS: Glucose,Whole Blood 145 mg/dL (75-99)
[2017-05-06] MEDS: SERTRALINE 100 MG TAB PO SCH (12:33)
--- NOTE | 2017-05-06 14:01 | P.DS ---
Providers Date of admission: 05/04/17 02:02 Expected date of discharge: 05/06/17 Attending physician: Mike Borges Primary care physician: Mike Borges [facility] Course: This is a 52-year-old female patient of Dr. Borges with previous medical history significant for familial dyslipidemia, recurrent pancreatitis and chroni abdominal pain, thought to be due to hypertriglyceridemia, hypertension and hypertensive cardiovascular disease, diabetes mellitus type 2 with recurrent diabetic ketoacidosis as well as episodes of hyperosmolar nonketotic hyperglycemia, hypertensive cardiovascular disease, chronic pain syndrome, gastroparesis, gastroesophageal reflux disease, diabetic polyneuropathy. She presented to [facility] emergency center with complaints of abdominal pain, diarrhea and vomiting and hyperglycemia. Blood glucose was 653, acetone positive, anion gap 24, lactic acid 7.9 and potassium of 4.4 with sodium 138. Venous blood gas pH was 7.29, pCO2 42 and bicarb 20. Urinalysis showed 4+ glucose. Patient was admitted to the intensive care unit as overflow for selective care and started on insulin drip. Patient has no active diarrhea. The patient will be started on clear liquid diet. Patient will be transitioned to home medications tonight starting with Levemir and off insulin drip. 05/05: Blood sugars are running 139-159. Patient has been transitioned over to her Levemir and scheduled Humalog. Her diet is currently full liquid and will be advanced to soft for lunch. Patient is complaining of diarrhea. Blood pressure was low this morning and lisinopril and atenolol were held. Patient did receive IV Dilaudid and fentanyl patch at that time. Parameters will be placed for blood pressure medicines. Anticipate discharge home tomorrow. 05/06: Blood sugars are now running between 129 and 216. Patient will be discharged home today in stable condition. Discharge diagnoses: 1. DKA. 2. History of diabetes mellitus type 2, insulin requiring 3. Hypertension and hypertensive cardiovascular disease with left ventricular hypertrophy 4. Hyperlipidemia 5. Diabetic polyneuropathy 6. Anxiety generalized disorder. 7. Depression, recurrent. 8. Gastroparesis 9. Chronic pancreatitis 10. GERD 11. Acute lactic acidosis. Discharge plan: Return home Impression and plan of care have been directed as dictated by the signing physician. Amanda Kumar nurse practitioner acting as scribe for signing physician. Patient Condition at Discharge: Good Plan - Discharge Summary Discharge Rx Participant: No New Discharge Prescriptions: New Gemfibrozil [Lopid] 600 mg PO AC-BID tab Continue Lisinopril [Zestril] 20 mg PO DAILY Gabapentin [Neurontin] 200 mg PO BID cap Metoclopramide [Reglan] 5 mg PO ACHS tab Prochlorperazine [Compazine] 10 mg PO TID PRN #0 tab PRN Reason: Nausea Sertraline [Zoloft] 200 mg PO DAILY tab HYDROmorphone [Dilaudid] 2 mg PO Q8H PRN PRN Reason: Pain Multivitamins, Thera [Multivitamin (formulary)] 1 tab PO DAILY Calcium Carb-Vit D 500Mg-200Un [Oscal 500+D] 1 tab PO BID Atenolol [Tenormin] 100 mg PO DAILY Mirtazapine [Remeron] 45 mg PO HS Rosuvastatin Calcium [Crestor] 40 mg PO HS fentaNYL 25MCG/HR PATCH [Duragesic 25MCG/HR] 1 patch TRANSDERM Q72H #0 Insulin Aspart [NovoLOG Flexpen] 36 units SQ AC-SUPPER Insulin Aspart [NovoLOG Flexpen] 26 unit SQ AC-BRKFST Insulin Aspart [NovoLOG Flexpen] 26 unit SQ AC-LUNCH Pancreatic Enzymes Otc(Unknown) 1 cap PO AC-TID Cetirizine HCl [Zyrtec] 10 mg PO DAILY Niacin 1,000 mg PO HS clonazePAM [KlonoPIN] 2 mg PO HS Dicyclomine [Bentyl] 10 mg PO TID PRN #90 cap PRN Reason: Diarrhea Famotidine [Pepcid] 20 mg PO BID #0 Insulin Detemir [Levemir] 66 unit SQ HS clonazePAM [KlonoPIN] 1 mg PO QAM Mag Hydrox/Al Hydrox/Simeth [Maalox] 30 ml PO QID PRN PRN Reason: Constipation Discontinued Fenofibrate [Lofibra] 160 mg PO HS tab Discharge Medication List Lisinopril [Zestril] 20 mg PO DAILY 09/09/13 [History] Gabapentin [Neurontin] 200 mg PO BID cap 08/09/14 [Rx] Metoclopramide [Reglan] 5 mg PO ACHS tab 08/09/14 [Rx] Prochlorperazine [Compazine] 10 mg PO TID PRN #0 tab 08/09/14 [Rx] Sertraline [Zoloft] 200 mg PO DAILY tab 08/09/14 [Rx] HYDROmorphone [Dilaudid] 2 mg PO Q8H PRN 09/17/14 [History] Multivitamins, Thera [Multivitamin (formulary)] 1 tab PO DAILY 09/17/14 [History ] Atenolol [Tenormin] 100 mg PO DAILY 11/19/14 [History] Calcium Carb-Vit D 500Mg-200Un [Oscal 500+D] 1 tab PO BID 11/19/14 [History] Mirtazapine [Remeron] 45 mg PO HS 11/19/14 [History] Rosuvastatin Calcium [Crestor] 40 mg PO HS 11/19/14 [History] fentaNYL 25MCG/HR PATCH [Duragesic 25MCG/HR] 1 patch TRANSDERM Q72H #0 07/10/15 [Rx] Insulin Aspart [NovoLOG Flexpen] 26 unit SQ AC-BRKFST 10/14/15 [History] Insulin Aspart [NovoLOG Flexpen] 26 unit SQ AC-LUNCH 10/14/15 [History] Insulin Aspart [NovoLOG Flexpen] 36 units SQ AC-SUPPER 10/14/15 [History] Pancreatic Enzymes Otc(Unknown) 1 cap PO AC-TID 10/14/15 [History] Cetirizine HCl [Zyrtec] 10 mg PO DAILY 02/04/16 [History] Niacin 1,000 mg PO HS 02/04/16 [History] clonazePAM [KlonoPIN] 2 mg PO HS 02/04/16 [History] Dicyclomine [Bentyl] 10 mg PO TID PRN #90 cap 03/22/16 [Rx] Famotidine [Pepcid] 20 mg PO BID #0 03/22/16 [Rx] Insulin Detemir [Levemir] 66 unit SQ HS 07/21/16 [History] clonazePAM [KlonoPIN] 1 mg PO QAM 07/21/16 [History] Mag Hydrox/Al Hydrox/Simeth [Maalox] 30 ml PO QID PRN 05/04/17 [History] Gemfibrozil [Lopid] 600 mg PO AC-BID tab 05/06/17 [Rx] Follow up Appointment(s)/Referral(s): Mike Borges MD [Primary Care Provider] - 05/11/17 3:45 pm (Tuesday) Patient Instructions/Handouts: Diabetic Ketoacidosis (DC) Discharge Disposition: HOME SELF-CARE
== END 2017-05-06 13:45 | disposition home or self-care (01) | DRG 638 ==
LOC: EC 23:57 → 6ICU 05-04 02:02 → 6SEL 05-04 14:34 → 5MS5E 05-05 11:13
PROVIDERS: ADMIT Internal Medicine; ATTEND Internal Medicine
DX: E11.10 Type 2 diabetes mellitus with ketoacidosis without coma (principal); K86.1 Other chronic pancreatitis; F33.9 Major depressive disorder, recurrent, unspecified; I11.9 Hypertensive heart disease without heart failure; K31.84 Gastroparesis; E78.1 Pure hyperglyceridemia; E11.42 Type 2 diabetes mellitus with diabetic polyneuropathy; E11.43 Type 2 diabetes mellitus with diabetic autonomic (poly)neuropathy; E78.5 Hyperlipidemia, unspecified; F41.0 Panic disorder [episodic paroxysmal anxiety]; F41.1 Generalized anxiety disorder; F43.10 Post-traumatic stress disorder, unspecified; G89.4 Chronic pain syndrome; I25.10 Atherosclerotic heart disease of native coronary artery without angina pectoris; K21.9 Gastro-esophageal reflux disease without esophagitis; R19.7 Diarrhea, unspecified; Z79.4 Long term (current) use of insulin; Z79.899 Other long term (current) drug therapy; Z88.6 Allergy status to analgesic agent
CPT/HCPCS: 36415; 80048; 80051; 80053; 81003; 82009; 82150; 82565; 82803; 82947; 83690; 83735; 84100; 84520; 85025; 96361; 96374; 96375; 99284

== ENCOUNTER 2017-07-01 23:38 | Inpatient (IN) | payer MEDICARE ==
[2017-07-02 00:35] LABS: Glucose,Whole Blood 576 mg/dL (75-99)
[2017-07-02] MEDS ORDERED: SODIUM CHLORIDE 0.9% 1,000 ML IV STA ×2 (00:40→03:15)
[2017-07-02] MEDS ORDERED: INSULIN REGULAR BOLUS (FROM DRIP BAG) IV ONE (00:50)
[2017-07-02 00:51] LABS: Basophils % (A) 0 %; Eosinophils % (A) 0 %; HCT 41.6 % (34.0-46.0); HGB 14.2 gm/dL (11.4-16.0); Lymphocytes % (A) 16 %; MCH 30.7 pg (25.0-35.0); MCHC 34.1 g/dL (31.0-37.0); MCV 89.9 fL (80.0-100.0); Mean Platelet Volume 6.5; Monocytes # (A) 0.1 k/uL (0-1.0); Monocytes % (A) 1 %; Neutrophils # (A) 4.8 k/uL (1.3-7.7); Neutrophils % (A) 81 %; Platelet Count 178 k/uL (150-450); RBC 4.63 m/uL (3.80-5.40); WBC 5.9 k/uL (3.8-10.6)
[2017-07-02] MEDS ORDERED: MORPHINE SULFATE 4 MG/ML SYRINGE IVP ONE (00:51)
[2017-07-02 00:52] LABS: Appearance,Urine Clear (Clear); Bilirubin,Urine Negative (Negative); Blood,Urine Negative (Negative); Color,Urine Colorless; Glucose,Urine (UA) 4+ (Negative); Ketones,Urine Negative (Negative); Leukocyte Esterase,Urine Negative (Negative); Nitrite,Urine Negative (Negative); Protein,Urine Negative (Negative); Specific Gravity,Urine 1.025 (1.001-1.035); Urobilinogen,Urine <2.0 mg/dL (<2.0)
[2017-07-02 01:00] LABS: ALT 26 U/L (9-52); Albumin 4.4 g/dL (3.5-5.0); Alkaline Phosphatase 144 U/L (38-126); Amylase 105 U/L (30-110); Anion Gap 20 mmol/L; Blood Urea Nitrogen 13 mg/dL (7-17); Calcium 9.6 mg/dL (8.4-10.2); Carbon Dioxide 19 mmol/L (22-30); Chloride 99 mmol/L (98-107); Lipase 119 U/L (23-300); Sodium 138 mmol/L (137-145); Total Bilirubin 0.4 mg/dL (0.2-1.3); Total Protein 6.9 g/dL (6.3-8.2)
[2017-07-02] MEDS ORDERED: INSULIN REGULAR 100 UNIT in SODIUM CHLORIDE 0.9% 100 ML IV SCH ×2 (01:00→08:30)
[2017-07-02 01:06] LABS: AST 28 U/L (14-36)
[2017-07-02 01:12] LABS: Glucose 635 mg/dL (74-99)
[2017-07-02] MEDS: SODIUM CHLORIDE 0.9% 1,000 ML IV SCH ×5 (01:23→21:35)
--- NOTE | 2017-07-02 01:48 | XR ---
EXAMINATION TYPE: XR KUB DATE OF EXAM: 07/02/2017 COMPARISON: 10/13/2016 HISTORY: Abdominal pain TECHNIQUE: 3 views FINDINGS: Spleen is probably enlarged. There appears to be at large dilated fluid-filled stomach. The re are clips from cholecystectomy. Lung bases are clear. I see no sign of free air. Transverse colon appears displaced. Bony structures are intact. IMPRESSION: Large mass in the upper abdomen consistent with a dilated stomach. No free air. Gastric o utlet obstruction or gastroparesis should be considered. This is a change compared to old exam.
--- NOTE | 2017-07-02 02:02 | ED ---
General Adult HPI - General Source: patient, RN notes reviewed, old records reviewed Mode of arrival: ambulatory Limitations: no limitations <Jojo Holly - Last Filed: 07/02/17 04:30> <Jerman Koo - Last Filed: 07/03/17 07:59> - General Chief complaint: Nausea/Vomiting/Diarrhea Stated complaint: Hyperglycemia/Diarrhea/Vomiting Time Seen by Provider: 07/02/17 00:00 - History of Present Illness Initial comments: This patient is a 51-year-old female presents with history of diabetes and chronic pancreatitis presents emergency department today with nausea and diarrhea multiple times within the past 2 days. She states that the symptoms started yesterday. Patient states that her sugar was high today and was not able to be read at her monitor. She has history of DKA. She does states she's had some left upper quadrant pain tenderness. She denies any other complaints or symptoms. Denies any fever or chills chest pain shortness of breath, urinary symptoms headaches or visual changes. During history patient was quite adamant about receiving certain pain medications. (Jojo Holly) - Related Data Home Medications Medication Instructions Recorded Confirmed Lisinopril [Zestril] 20 mg PO DAILY 09/09/13 07/02/17 HYDROmorphone [Dilaudid] 2 mg PO Q8H PRN 09/17/14 07/02/17 Multivitamins, Thera [Multivitamin 1 tab PO DAILY 09/17/14 07/02/17 (formulary)] Atenolol [Tenormin] 100 mg PO DAILY 11/19/14 07/02/17 Calcium Carb-Vit D 500Mg-200Un 1 tab PO BID 11/19/14 07/02/17 [Oscal 500+D] Mirtazapine [Remeron] 45 mg PO HS 11/19/14 07/02/17 Rosuvastatin Calcium [Crestor] 40 mg PO HS 11/19/14 07/02/17 Insulin Aspart [NovoLOG Flexpen] 26 unit SQ AC-BRKFST 10/14/15 07/02/17 Insulin Aspart [NovoLOG Flexpen] 26 unit SQ AC-LUNCH 10/14/15 07/02/17 Insulin Aspart [NovoLOG Flexpen] 36 units SQ AC-SUPPER 10/14/15 07/02/17 Pancreatic Enzymes Otc(Unknown) 1 cap PO AC-TID 10/14/15 07/02/17 Cetirizine HCl [Zyrtec] 10 mg PO DAILY 02/04/16 07/02/17 Niacin 1,000 mg PO HS 02/04/16 07/02/17 clonazePAM [KlonoPIN] 2 mg PO HS 02/04/16 07/02/17 Insulin Detemir [Levemir] 66 unit SQ HS 07/21/16 07/02/17 clonazePAM [KlonoPIN] 1 mg PO QAM 07/21/16 07/02/17 Mag Hydrox/Al Hydrox/Simeth 30 ml PO QID PRN 05/04/17 07/02/17 [Maalox] Gemfibrozil [Lopid] 600 mg PO AC-BID 07/02/17 07/02/17 Previous Rx's Medication Instructions Recorded Gabapentin [Neurontin] 200 mg PO BID cap 08/09/14 Metoclopramide [Reglan] 5 mg PO ACHS tab 08/09/14 Prochlorperazine [Compazine] 10 mg PO TID PRN #0 tab 08/09/14 Sertraline [Zoloft] 200 mg PO DAILY tab 08/09/14 fentaNYL 25MCG/HR PATCH [Duragesic 1 patch TRANSDERM Q72H #0 07/10/15 25MCG/HR] Dicyclomine [Bentyl] 10 mg PO TID PRN #90 cap 03/22/16 Famotidine [Pepcid] 20 mg PO BID #0 03/22/16 Allergies Allergy/AdvReac Type Severity Reaction Status Date / Time NSAIDS (Non-Steroidal Allergy Rash/Hives Verified 07/02/17 11:16 Anti-Inflamma Review of Systems ROS Other: All systems not noted in ROS Statement are negative. <Jojo Holly - Last Filed: 07/02/17 04:30> ROS Other: All systems not noted in ROS Statement are negative. <Jerman Koo - Last Filed: 07/03/17 07:59> ROS Statement: Those systems with pertinent positive or pertinent negative responses have been documented in the HPI. Past Medical History Past Medical History: Coronary Artery Disease (CAD), Diabetes Mellitus, GERD/ Reflux, Hyperlipidemia, Hypertension, Syncope Additional Past Medical History / Comment(s): IDDM type II, recurrent DKA, episodes of hyperosmolar nonketonic hyperglycemia, hypertensive heart disease, chronic pain syndrome, hypertriglyceridemia, chronic pancreatitis, chronic abdominal pain, gastroparesis, severe GERD, diabetic polyneuropathy mostly in hands and alittle in feet bilaterally, infectious colitis. History of Any Multi-Drug Resistant Organisms: C-DIFF Date of last positivie culture/infection: pt. unsure MDRO Source:: stool Past Surgical History: Cholecystectomy Additional Past Surgical History / Comment(s): Biliary stent through an ERCP that was performed at [facility] and stent removed 2007, lap jenn, colonoscopy, ERCP. Past Anesthesia/Blood Transfusion Reactions: No Reported Reaction Additional Past Anesthesia/Blood Transfusion Reaction / Comment(s): Pt has never received blood."CLAUSTERPHOBIA" Past Psychological History: Anxiety, Depression, Panic Disorder, PTSD Smoking Status: Never smoker Past Alcohol Use History: Rare Past Drug Use History: None Reported - Past Family History Sister(s) Additional Family Medical History / Comment(s): Patient has 2 sisters with no major medical problems. Daughter(s) Additional Family Medical History / Comment(s): Patient has 2 daughters and one had mitral valve replacement. Son(s) Additional Family Medical History / Comment(s): She has one son with no major medical problems. Brother(s) Additional Family Medical History / Comment(s): Does not have any brothers. Father Family Medical History: No Reported History Additional Family Medical History / Comment(s): Father is 79 years of age with severe anxiety and was hospitalized for this at times. Mother Family Medical History: Cancer Additional Family Medical History / Comment(s): Mother of metastatic breast CA at the age of 42yrs. pt. states her grandmother had diabetes as well <Jojo Holly - Last Filed: 07/02/17 04:30> General Exam Limitations: no limitations General appearance: alert, in no apparent distress Head exam: Present: atraumatic, normocephalic, normal inspection Eye exam: Present: normal appearance, PERRL, EOMI. Absent: scleral icterus, conjunctival injection, periorbital swelling ENT exam: Present: normal exam, mucous membranes moist Neck exam: Present: normal inspection. Absent: tenderness, meningismus, lymphadenopathy Respiratory exam: Present: normal lung sounds bilaterally. Absent: respiratory distress, wheezes, rales, rhonchi, stridor Cardiovascular Exam: Present: regular rate, normal rhythm, normal heart sounds. Absent: systolic murmur, diastolic murmur, rubs, gallop, clicks GI/Abdominal exam: Present: soft, tenderness (Left upper quadrant tenderness), normal bowel sounds. Absent: distended, guarding, rebound, rigid Extremities exam: Present: normal inspection, full ROM, normal capillary refill. Absent: tenderness, pedal edema, joint swelling, calf tenderness Back exam: Present: normal inspection Neurological exam: Present: alert, oriented X3, CN II-XII intact Psychiatric exam: Present: normal affect, normal mood Skin exam: Present: warm, dry, intact, normal color. Absent: rash <Jojo Holly - Last Filed: 07/02/17 04:30> <Jerman Koo - Last Filed: 07/03/17 07:59> - General Exam Comments Initial Comments: 52-year-old female. No distress. (Jojo Holly) Course <Jojo Holly - Last Filed: 07/02/17 04:30> <Jerman Koo - Last Filed: 07/03/17 07:59> Vital Signs 07/01/17 07/02/17 07/02/17 23:44 01:26 02:52 Temperature 98.0 F Pulse Rate 113 H 87 88 Respiratory 18 16 16 Rate Blood Pressure 130/84 127/65 134/83 O2 Sat by Pulse 96 96 96 Oximetry 07/02/17 04:00 Temperature Pulse Rate 89 Respiratory 16 Rate Blood Pressure 129/69 O2 Sat by Pulse 96 Oximetry - Reevaluation(s) Reevaluation #1: 07/02/17 02:51 Patient was ambulatory went to the bathroom. She was given a area safety manager because the past she has occluded her insulin drip line and fluid bolus. The area safety manager was standing outside of the bathroom. Patient would not respond to her. She locked herself in the bathroom. When staff arrived and she reopened up with the door patient was laying on the ground. She states that she passed out after washing her hands. The area safety manager do not hear any loud noises or sound suggesting that she fell and hit her head. She has a small area of erythema over the forehead. 07/02/17 03:05 (AvniJojo) Medical Decision Making - Lab Data Result diagrams: 07/02/17 00:25 07/02/17 00:25 - Radiology Data Radiology results: report reviewed <Jojo Holly - Last Filed: 07/02/17 04:30> - Lab Data Result diagrams: 07/02/17 00:25 07/02/17 00:25 <RobeelizaJerman - Last Filed: 07/03/17 07:59> - Medical Decision Making This patient 52-year-old female well-known to the emergency department for chronic pancreatitis. She states she's had diarrhea yesterday into today. Patient states there is no blood in it. Reports chronic left upper quadrant abdominal pains been slightly worse. Patient was given IV fluids labwork obtained. Pancreatic enzymes are within normal limits. Patient did have an elevated blood sugar over 600. She started on insulin protocol. She has no fever or chills or any signs of sepsis. Patient was given 2 L bolus. Per the patient of theirs results to became upset. She also very adamant about receiving the medication. She did receive 2 mg of morphine while she was initially in the emergency department. Discussed no further pain management is necessary at this time. Patient was informed that she would likely go home due to the hyperglycemia and negative ketones or acetone. Patient states that she frequently has to have her lactic acid checked as is been high in the past. After informing the patient of her initial test results patient went to the bathroom. She had episodes of vomiting and diarrhea. It is of note the patient had a history of clamping off her fluids so that her blood sugars since stay elevated in the past. Patient was given a area safety manager. When patient was in the bathroom safety Center was outside the door. The patient left the safety Center out, and then was not talking to her unresponsive. We did open the door and found the patient in the middle of the floor. She reports she had a syncopal episode after having a bowel movement and thinks that she had hit her head. She has a small area of erythema in center of forehead. crust sorter and staff did not hear a loud fall indicating patient fell. I did do a computed tomography scan of the brain and cspine at that time. CT brain cspine is negative for any acute process. Cardiac enzymes are added they did add a lactic acid on at that time. Lactic acid was elevated at 9.6. Patient is given another liter bolus. Troponins negative. EKG is normal. This time patient will be admitted for the elevated lactic acid, hyperglycemia, and syncopal episode. Discussed with Dr. Roger will discuss with Dr. Koo, whom will discuss with Dr. Nunez in morning. (Jojo Holly) I saw this patient in conjunction with the physician medical claims assistant. I performed independent history and physical exam. Agree with case management. (Jerman Koo) - Lab Data Lab Results 07/02/17 07/02/17 07/02/17 Range/Units 00:08 00:25 00:25 WBC 5.9 (3.8-10.6) k/uL RBC 4.63 (3.80-5.40) m/uL Hgb 14.2 (11.4-16.0) gm/dL Hct 41.6 (34.0-46.0) % MCV 89.9 (80.0-100.0) fL MCH 30.7 (25.0-35.0) pg MCHC 34.1 (31.0-37.0) g/dL RDW 13.0 (11.5-15.5) % Plt Count 178 (150-450) k/uL Neutrophils % 81 % Lymphocytes % 16 % Monocytes % 1 % Eosinophils % 0 % Basophils % 0 % Neutrophils # 4.8 (1.3-7.7) k/uL Lymphocytes # 1.0 (1.0-4.8) k/uL Monocytes # 0.1 (0-1.0) k/uL Eosinophils # 0.0 (0-0.7) k/uL Basophils # 0.0 (0-0.2) k/uL PT (9.0-12.0) sec INR (<1.2) APTT (22.0-30.0) sec Sodium 138 (137-145) mmol/L Potassium 4.0 (3.5-5.1) mmol/L Chloride 99 (98-107) mmol/L Carbon Dioxide 19 L (22-30) mmol/L Anion Gap 20 mmol/L BUN 13 (7-17) mg/dL Creatinine 0.60 (0.52-1.04) mg/dL Est GFR (CKD-EPI)AfAm >90 (>60 ml/min/1.73 sqM) Est GFR (CKD-EPI)NonAf >90 (>60 ml/min/1.73 sqM) Glucose 635 H* (74-99) mg/dL POC Glucose (mg/dL) 576 H (75-99) mg/dL POC Glu [employer] Debeader ID Jojo Taylor Lactic Ac Sepsis Rflx Plasma Lactic Acid [place] (0.7-2.0) mmol/L Calcium 9.6 (8.4-10.2) mg/dL Total Bilirubin 0.4 (0.2-1.3) mg/dL AST 28 (14-36) U/L ALT 26 (9-52) U/L Alkaline Phosphatase 144 H (38-126) U/L Total Creatine Kinase (30-135) U/L CK-MB (CK-2) (0.0-2.4) ng/mL CK-MB (CK-2) Rel Index Troponin I (0.000-0.034) ng/mL Total Protein 6.9 (6.3-8.2) g/dL Albumin 4.4 (3.5-5.0) g/dL Amylase 105 (30-110) U/L Lipase 119 (23-300) U/L Urine Color Urine Appearance (Clear) Urine pH (5.0-8.0) Ur Specific [place] (1.001-1.035) Urine Protein (Negative) Urine Glucose (UA) (Negative) Urine Ketones (Negative) Urine Blood (Negative) Urine Nitrite (Negative) Urine Bilirubin (Negative) Urine Urobilinogen (<2.0) mg/dL Ur Leukocyte Esterase (Negative) Acetone, Qual (Negative) 07/02/17 07/02/17 07/02/17 Range/Units 00:25 00:25 02:13 WBC (3.8-10.6) k/uL RBC (3.80-5.40) m/uL Hgb (11.4-16.0) gm/dL Hct (34.0-46.0) % MCV (80.0-100.0) fL MCH (25.0-35.0) pg MCHC (31.0-37.0) g/dL RDW (11.5-15.5) % Plt Count (150-450) k/uL Neutrophils % % Lymphocytes % % Monocytes % % Eosinophils % % Basophils % % Neutrophils # (1.3-7.7) k/uL Lymphocytes # (1.0-4.8) k/uL Monocytes # (0-1.0) k/uL Eosinophils # (0-0.7) k/uL Basophils # (0-0.2) k/uL PT (9.0-12.0) sec INR (<1.2) APTT (22.0-30.0) sec Sodium (137-145) mmol/L Potassium (3.5-5.1) mmol/L Chloride (98-107) mmol/L Carbon Dioxide (22-30) mmol/L Anion Gap mmol/L BUN (7-17) mg/dL Creatinine (0.52-1.04) mg/dL Est GFR (CKD-EPI)AfAm (>60 ml/min/1.73 sqM) Est GFR (CKD-EPI)NonAf (>60 ml/min/1.73 sqM) Glucose (74-99) mg/dL POC Glucose (mg/dL) 392 H (75-99) mg/dL POC Glu [employer] Debeader ID Janet Jang Lactic Ac Sepsis Rflx Plasma Lactic Acid [place] (0.7-2.0) mmol/L Calcium (8.4-10.2) mg/dL Total Bilirubin (0.2-1.3) mg/dL AST (14-36) U/L ALT (9-52) U/L Alkaline Phosphatase (38-126) U/L Total Creatine Kinase (30-135) U/L CK-MB (CK-2) (0.0-2.4) ng/mL CK-MB (CK-2) Rel Index Troponin I (0.000-0.034) ng/mL Total Protein (6.3-8.2) g/dL Albumin (3.5-5.0) g/dL Amylase (30-110) U/L Lipase (23-300) U/L Urine Color Colorless Urine Appearance Clear (Clear) Urine pH 5.0 (5.0-8.0) Ur Specific [place] 1.025 (1.001-1.035) Urine Protein Negative (Negative) Urine Glucose (UA) 4+ H (Negative) Urine Ketones Negative (Negative) Urine Blood Negative (Negative) Urine Nitrite Negative (Negative) Urine Bilirubin Negative (Negative) Urine Urobilinogen <2.0 (<2.0) mg/dL Ur Leukocyte Esterase Negative (Negative) Acetone, Qual Negative (Negative) 07/02/17 07/02/17 07/02/17 Range/Units 03:00 03:00 03:00 WBC (3.8-10.6) k/uL RBC (3.80-5.40) m/uL Hgb (11.4-16.0) gm/dL Hct (34.0-46.0) % MCV (80.0-100.0) fL MCH (25.0-35.0) pg MCHC (31.0-37.0) g/dL RDW (11.5-15.5) % Plt Count (150-450) k/uL Neutrophils % % Lymphocytes % % Monocytes % % Eosinophils % % Basophils % % Neutrophils # (1.3-7.7) k/uL Lymphocytes # (1.0-4.8) k/uL Monocytes # (0-1.0) k/uL Eosinophils # (0-0.7) k/uL Basophils # (0-0.2) k/uL PT 9.6 (9.0-12.0) sec INR 1.0 (<1.2) APTT 23.9 (22.0-30.0) sec Sodium (137-145) mmol/L Potassium (3.5-5.1) mmol/L Chloride (98-107) mmol/L Carbon Dioxide (22-30) mmol/L Anion Gap mmol/L BUN (7-17) mg/dL Creatinine (0.52-1.04) mg/dL Est GFR (CKD-EPI)AfAm (>60 ml/min/1.73 sqM) Est GFR (CKD-EPI)NonAf (>60 ml/min/1.73 sqM) Glucose (74-99) mg/dL POC Glucose (mg/dL) (75-99) mg/dL POC Glu [employer] Debeader ID Lactic Ac Sepsis Rflx Plasma Lactic Acid [place] 9.6 H* (0.7-2.0) mmol/L Calcium (8.4-10.2) mg/dL Total Bilirubin (0.2-1.3) mg/dL AST (14-36) U/L ALT (9-52) U/L Alkaline Phosphatase (38-126) U/L Total Creatine Kinase 138 H (30-135) U/L CK-MB (CK-2) 1.6 (0.0-2.4) ng/mL CK-MB (CK-2) Rel Index 1.2 Troponin I <0.012 (0.000-0.034) ng/mL Total Protein (6.3-8.2) g/dL Albumin (3.5-5.0) g/dL Amylase (30-110) U/L Lipase (23-300) U/L Urine Color Urine Appearance (Clear) Urine pH (5.0-8.0) Ur Specific [place] (1.001-1.035) Urine Protein (Negative) Urine Glucose (UA) (Negative) Urine Ketones (Negative) Urine Blood (Negative) Urine Nitrite (Negative) Urine Bilirubin (Negative) Urine Urobilinogen (<2.0) mg/dL Ur Leukocyte Esterase (Negative) Acetone, Qual (Negative) 07/02/17 07/02/17 07/02/17 Range/Units 03:30 03:40 04:45 WBC (3.8-10.6) k/uL RBC (3.80-5.40) m/uL Hgb (11.4-16.0) gm/dL Hct (34.0-46.0) % MCV (80.0-100.0) fL MCH (25.0-35.0) pg MCHC (31.0-37.0) g/dL RDW (11.5-15.5) % Plt Count (150-450) k/uL Neutrophils % % Lymphocytes % % Monocytes % % Eosinophils % % Basophils % % Neutrophils # (1.3-7.7) k/uL Lymphocytes # (1.0-4.8) k/uL Monocytes # (0-1.0) k/uL Eosinophils # (0-0.7) k/uL Basophils # (0-0.2) k/uL PT (9.0-12.0) sec INR (<1.2) APTT (22.0-30.0) sec Sodium (137-145) mmol/L Potassium (3.5-5.1) mmol/L Chloride (98-107) mmol/L Carbon Dioxide (22-30) mmol/L Anion Gap mmol/L BUN (7-17) mg/dL Creatinine (0.52-1.04) mg/dL Est GFR (CKD-EPI)AfAm (>60 ml/min/1.73 sqM) Est GFR (CKD-EPI)NonAf (>60 ml/min/1.73 sqM) Glucose (74-99) mg/dL POC Glucose (mg/dL) 403 H 435 H (75-99) mg/dL POC Glu [employer] De[employer] JANAE Jang, Janet Bamahnazoch, Janet Lactic Ac Sepsis Rflx Y Plasma Lactic Acid [place] (0.7-2.0) mmol/L Calcium (8.4-10.2) mg/dL Total Bilirubin (0.2-1.3) mg/dL AST (14-36) U/L ALT (9-52) U/L Alkaline Phosphatase (38-126) U/L Total Creatine Kinase (30-135) U/L CK-MB (CK-2) (0.0-2.4) ng/mL CK-MB (CK-2) Rel Index Troponin I (0.000-0.034) ng/mL Total Protein (6.3-8.2) g/dL Albumin (3.5-5.0) g/dL Amylase (30-110) U/L Lipase (23-300) U/L Urine Color Urine Appearance (Clear) Urine pH (5.0-8.0) Ur Specific [place] (1.001-1.035) Urine Protein (Negative) Urine Glucose (UA) (Negative) Urine Ketones (Negative) Urine Blood (Negative) Urine Nitrite (Negative) Urine Bilirubin (Negative) Urine Urobilinogen (<2.0) mg/dL Ur Leukocyte Esterase (Negative) Acetone, Qual (Negative) 07/02/ 03:21 EKG was normal sinus rhythm, normal EKG noted, ventricular rate 90 bpm. PA interval 140 ms. QRS duration 80 ms. QT QTc is 374/457 ms. No evidence of ST elevation or T-wave inversion. No evidence of atrial or ventricular arrhythmias. EKG was performed at 308. (Jojo Holly) - Radiology Data KUB shows overall gas pattern. CT brain and C-spine was performed after patient's fall. Is negative for any acute process. This evidence of spinal listhesis at C6-C7. (Jojo Holly) Disposition Time of Disposition: 04:29 <Jojo Holly - Last Filed: 07/02/17 04:30> <Jerman Koo - Last Filed: 07/03/17 07:59> Clinical Impression: Lactic acid acidosis, Diabetes, Hyperglycemia, Syncope Disposition: ADMITTED IP TO THIS HOSP Condition: Stable
[2017-07-02 02:28] LABS: Glucose,Whole Blood 392 mg/dL (75-99)
[2017-07-02 03:35] LABS: Creatine Kinase 138 U/L (30-135)
[2017-07-02 03:48] LABS: Creatine Kinase MB 1.6 ng/mL (0.0-2.4); Troponin I <0.012 ng/mL (0.000-0.034)
[2017-07-02 03:49] LABS: Partial Thromboplastin Time 23.9 sec (22.0-30.0); Prothrombin Time 9.6 sec (9.0-12.0)
[2017-07-02] MEDS ORDERED: ONDANSETRON 4 MG/2 ML VIAL IVP STA (03:51)
[2017-07-02 03:54] LABS: Glucose,Whole Blood 403 mg/dL (75-99)
--- NOTE | 2017-07-02 04:06 | CT ---
EXAM: CT Head Without Intravenous Contrast CLINICAL HISTORY: ITS.REASON CT Reason: fall TECHNIQUE: Axial computed tomography images of the head/brain without intravenous contrast. CTDI is 60.30 mGy and DLP is 1126.50 mGy-cm. This CT exam was performed using one or more of the following dose reduction techniques: automated exposure control, adjustment of the mA and/or kV according to patient size, and/or use of iterative reconstruction technique. COMPARISON: 07/21/69 FINDINGS: Brain: Unremarkable. No hemorrhage. No significant white matter disease. No edema. Ventricles: Unremarkable. No ventriculomegaly. Bones/joints: Unremarkable. No acute fracture. Soft tissues: Unremarkable. Sinuses: Unremarkable as visualized. No acute sinusitis. Mastoid air cells: Unremarkable as visualized. No mastoid effusion. IMPRESSION: Normal head/brain CT. EXAM: CT Cervical Spine Without Intravenous Contrast CLINICAL HISTORY: ITS.REASON CT Reason: fall TECHNIQUE: Axial computed tomography images of the cervical spine without intravenous contrast. CTDI is 15.00 mGy and DLP is 281.00. MGy-cm. This CT exam was performed using one or more of the following dose reduction techniques: automated exposure control, adjustment of the mA and/or kV according to patient size, and/or use of iterative reconstruction technique. COMPARISON: 07/21/16 FINDINGS: Vertebrae: Straightening of the cervical spine noted likely on the basis of spondylotic changes. No acute fracture. Discs/spinal canal/neural foramina: Stable disc height loss with anterior and posterior disc spur complex at C6-7 causing bilateral neural foraminal narrowing. Soft tissues: Unremarkable. Lung apices: Unremarkable as visualized. IMPRESSION: No fracture or subluxation. Stable spondylotic changes at C6-7.
[2017-07-02] MEDS ORDERED: ONDANSETRON 4 MG/2 ML VIAL IVP PRN (04:23)
[2017-07-02] MEDS ORDERED: NALOXONE 0.4 MG/ML 1 ML VIAL IV PRN (04:23)
[2017-07-02] MEDS ORDERED: ACETAMINOPHEN TAB 325 MG TAB PO PRN (04:23)
[2017-07-02] MEDS ORDERED: MAG HYDROX/AL HYDROX/SIMETH 30 ML CUP PO PRN (04:26)
[2017-07-02] MEDS ORDERED: PROCHLORPERAZINE 10 MG TAB PO PRN (04:26)
[2017-07-02] MEDS ORDERED: DICYCLOMINE 10 MG CAP PO PRN (04:26)
[2017-07-02 05:09] LABS: Glucose,Whole Blood 435 mg/dL (75-99)
[2017-07-02 06:00] LABS: Glucose,Whole Blood 381 mg/dL (75-99)
[2017-07-02 07:30] LABS: Glucose,Whole Blood 348 mg/dL (75-99)
[2017-07-02] MEDS ORDERED: [UNRECOGNIZED DRUG - OTHER] PO SCH (07:30)
[2017-07-02] MEDS: GEMFIBROZIL 600 MG TAB PO SCH ×2 (08:15→17:05)
[2017-07-02] MEDS: INSULIN ASPART 100 UNIT/ML 1 ML 10 ML VIAL SQ SCH ×3 (08:15→11:24)
[2017-07-02] MEDS: ATENOLOL 50 MG TAB PO SCH (08:16)
[2017-07-02] MEDS: METOCLOPRAMIDE 5 MG TAB PO SCH ×4 (08:16→21:36)
[2017-07-02] MEDS: clonazePAM 1 MG TAB PO SCH (08:16)
[2017-07-02] MEDS: FAMOTIDINE 20 MG TAB PO SCH ×2 (08:17→21:34)
[2017-07-02] MEDS: LORATADINE 10 MG TAB PO SCH (08:18)
[2017-07-02] MEDS: GABAPENTIN 100 MG CAP PO SCH ×2 (08:18→21:33)
[2017-07-02] MEDS: LISINOPRIL 20 MG TAB PO SCH (08:18)
[2017-07-02] MEDS: SERTRALINE 100 MG TAB PO SCH (08:18)
[2017-07-02 08:24] LABS: Glucose,Whole Blood 349 mg/dL (75-99)
[2017-07-02 08:34] LABS: Glucose,Whole Blood 323 mg/dL (75-99)
[2017-07-02 09:07] LABS: Glucose,Whole Blood 348 mg/dL (75-99)
[2017-07-02 10:02] LABS: Glucose,Whole Blood 256 mg/dL (75-99)
[2017-07-02 10:56] LABS: Glucose,Whole Blood 241 mg/dL (75-99)
[2017-07-02 12:22] LABS: Glucose,Whole Blood 220 mg/dL (75-99)
[2017-07-02] MEDS ORDERED: INSULIN ASPART 100 UNIT/ML 1 ML 10 ML VIAL SQ SCH ×2 (12:30→17:30)
[2017-07-02 15:10] VITALS: BMI 25.4
[2017-07-02 15:11] LABS: Glucose,Whole Blood 277 mg/dL (75-99)
--- NOTE | 2017-07-02 15:48 | P.HPIM ---
History of Present Illness H&P Date: 07/02/17 Chief Complaint: Hyperglycemia *Live* [facility] [address], [place] [address] Medical - H&P Patient Name: Shawna Turcios Date of : 10/29/1931 Patient Status: Observation Attending Provider: Chante Nunez Date: 07/02/17 14:08 Initialization Date: 07/02/17 14:08 History of Present Illness H&P Date: 07/02/17 Chief Complaint: UTI, Metabolic Enceph. Dehydration *Live* [facility] [address], [place] [address] Medical - H&P Patient Name: Yoon Rajput Date of : 1965 Patient Status: Inpatient Attending Provider: Chante Nunez Date: 07/02/17 1500 Initialization Date: 07/02/17 1500 History of Present Illness H&P Date: 07/02/17 Chief Complaint: Hyperglycemia, pain from chronic pancreatitis This is another admission for this 52yo female pt of Dr. Borges. The pt presented to the ED with hyperglycemia. He glucose was >600 without evidence of DKA. She is well known due to multiple admissions for the same issues. The ED physician treated her and recommended discharge when the pt locked herself in the bathroom and demanded to be admitted. She was told there was no need to admit her when she proceeded to throw herself to the floor. She did not sustain any injuries. She was also observed pinching her insulin IV tubing in attempt to keep her blood sugar from being treated. She was placed on the 4th floor on an insulin gtt. She is complaining of headache but refusing Tylenol. She is requesting IV morphine because she has been told that the hospital is out of dilaudid IV. She was offered Dilaudid oral and declined. She is feeling well, No nausea or vomiting. Sitter is at the bedside for fear of the pt harming herself. Her speech is manic. VSS. Review of Systems Constitutional: Reports as per HPI, Reports feeling well Ears, nose, mouth and throat: denies Cardiovascular: denies Respiratory: denies Gastrointestinal: abd discomfort d/t chronic pancreatitis Genitourinary: denies Menstruation: denies Musculoskeletal: denies Neurological: Headache Psychiatric:Manic Endocrine:High blood sugar Hematologic/Lymphatic: denies Allergic/Immunologic: denies Past Medical History Diabetes HTN Depression Diabetic neuropathy Past surgical history ERCP with stent Colonoscopy EGd Lap jenn Family history Father living 79 with severe anxiety Mother , 2 sisters alive and well, 2 daughters, 1 with valve replacement, 1 son healthy. no brothers. Social history Life long nonsmoker, denies Etoh or elicit drug use, chronic narcotic use. Home Medications Medication Instructions Recorded Confirmed Lisinopril [Zestril] 20 mg PO DAILY 09/09/13 07/02/17 HYDROmorphone [Dilaudid] 2 mg PO Q8H PRN 09/17/14 07/02/17 Multivitamins, Thera [Multivitamin 1 tab PO DAILY 09/17/14 07/02/17 (formulary)] Atenolol [Tenormin] 100 mg PO DAILY 11/19/14 07/02/17 Calcium Carb-Vit D 500Mg-200Un 1 tab PO BID 11/19/14 07/02/17 [Oscal 500+D] Mirtazapine [Remeron] 45 mg PO HS 11/19/14 07/02/17 Rosuvastatin Calcium [Crestor] 40 mg PO HS 11/19/14 07/02/17 Insulin Aspart [NovoLOG Flexpen] 26 unit SQ AC-BRKFST 10/14/15 07/02/17 Insulin Aspart [NovoLOG Flexpen] 26 unit SQ AC-LUNCH 10/14/15 07/02/17 Insulin Aspart [NovoLOG Flexpen] 36 units SQ AC-SUPPER 10/14/15 07/02/17 Pancreatic Enzymes Otc(Unknown) 1 cap PO AC-TID 10/14/15 07/02/17 Cetirizine HCl [Zyrtec] 10 mg PO DAILY 02/04/16 07/02/17 Niacin 1,000 mg PO HS 02/04/16 07/02/17 clonazePAM [KlonoPIN] 2 mg PO HS 02/04/16 07/02/17 Insulin Detemir [Levemir] 66 unit SQ HS 07/21/16 07/02/17 clonazePAM [KlonoPIN] 1 mg PO QAM 07/21/16 07/02/17 Mag Hydrox/Al Hydrox/Simeth 30 ml PO QID PRN 05/04/17 07/02/17 [Maalox] Gemfibrozil [Lopid] 600 mg PO AC-BID 07/02/17 07/02/17 Previous Rx's Medication Instructions Recorded Gabapentin [Neurontin] 200 mg PO BID cap 08/09/14 Metoclopramide [Reglan] 5 mg PO ACHS tab 08/09/14 Prochlorperazine [Compazine] 10 mg PO TID PRN #0 tab 08/09/14 Sertraline [Zoloft] 200 mg PO DAILY tab 08/09/14 fentaNYL 25MCG/HR PATCH [Duragesic 1 patch TRANSDERM Q72H #0 07/10/15 25MCG/HR] Dicyclomine [Bentyl] 10 mg PO TID PRN #90 cap 03/22/16 Famotidine [Pepcid] 20 mg PO BID #0 03/22/16 Active Medications Acetaminophen (Tylenol Tab) 650 mg PO Q6HR PRN PRN Reason: Mild Pain or Fever > 100.5 Al Hydroxide/Mg Hydroxide (Maalox) 30 ml PO QID PRN PRN Reason: Constipation Atenolol (Tenormin) 100 mg PO DAILY [facility] Last Admin: 07/02/17 08:16 Dose: 100 mg Atorvastatin Calcium (Lipitor) 80 mg PO HS [facility] Calcium Carbonate (Oscal 500+D) 1 each PO BID [facility] Clonazepam (Klonopin) 1 mg PO QAM [facility] Last Admin: 07/02/17 08:16 Dose: 1 mg Clonazepam (Klonopin) 2 mg PO HS [facility] Dicyclomine HCl (Bentyl) 10 mg PO TID PRN PRN Reason: Diarrhea Famotidine (Pepcid) 20 mg PO BID [facility] Last Admin: 07/02/17 08:17 Dose: 20 mg Fentanyl (Duragesic 25mcg/Hr Patch) 1 patch TRANSDERM Q72H [facility] Last Admin: 07/02/17 08:17 Dose: 1 patch Gabapentin (Neurontin) 200 mg PO BID [facility] Last Admin: 07/02/17 08:18 Dose: 200 mg Gemfibrozil (Lopid) 600 mg PO AC-BID [facility] Last Admin: 07/02/17 08:15 Dose: 600 mg Sodium Chloride (Saline 0.9%) 1,000 mls @ 100 mls/hr IV .Q10H [facility] Last Admin: 07/02/17 11:24 Dose: 100 mls/hr Insulin Aspart (Novolog) 26 unit SQ AC-BRKFST [facility] Insulin Aspart (Novolog) 26 unit SQ AC-LUNCH [facility] Insulin Aspart (Novolog) 36 unit SQ AC-SUPPER [facility] Insulin Detemir (Levemir) 66 unit SQ HS [facility] Lisinopril (Zestril) 20 mg PO DAILY [facility] Last Admin: 07/02/17 08:18 Dose: 20 mg Loratadine (Claritin) 10 mg PO DAILY [facility] Last Admin: 07/02/17 08:18 Dose: 10 mg Metoclopramide HCl (Reglan) 5 mg PO ACHS [facility] Last Admin: 07/02/17 11:24 Dose: Not Given Mirtazapine (Remeron) 45 mg PO HS [facility] Morphine Sulfate (Morphine Sulfate) 2 mg IVP Q4HR PRN PRN Reason: Moderate Breakthrough Pain Stop: 07/03/17 06:00 Multivitamins (Theragran) 1 each PO DAILY [facility] Naloxone HCl (Narcan) 0.2 mg IV Q2M PRN PRN Reason: Opioid Reversal Niacin (Niacin Tr) 1,000 mg PO HS [facility] Ondansetron HCl (Zofran) 4 mg IVP Q8HR PRN PRN Reason: Nausea And Vomiting Prochlorperazine Maleate (Compazine) 10 mg PO TID PRN PRN Reason: Nausea Sertraline HCl (Zoloft) 200 mg PO DAILY [facility] Last Admin: 07/02/17 08:18 Dose: 200 mg Last Vital Signs Temp 97.5 F L 07/02/17 15:00 Pulse 71 07/02/17 15:00 Resp 16 07/02/17 15:00 BP 129/76 07/02/17 15:00 Pulse Ox 98 07/02/17 15:00 Allergies NSAIDS (Non-Steroidal Anti-Inflamma Allergy (Verified 07/02/17 11:16) Rash/Hives Active Medications Acetaminophen (Tylenol Tab) 650 mg PO Q6HR PRN PRN Reason: Mild Pain or Fever > 100.5 Al Hydroxide/Mg Hydroxide (Maalox) 30 ml PO QID PRN PRN Reason: Constipation Atenolol (Tenormin) 100 mg PO DAILY [facility] Last Admin: 07/02/17 08:16 Dose: 100 mg Atorvastatin Calcium (Lipitor) 80 mg PO HS [facility] Calcium Carbonate (Oscal 500+D) 1 each PO BID [facility] Clonazepam (Klonopin) 1 mg PO QAM [facility] Last Admin: 07/02/17 08:16 Dose: 1 mg Clonazepam (Klonopin) 2 mg PO HS [facility] Dicyclomine HCl (Bentyl) 10 mg PO TID PRN PRN Reason: Diarrhea Famotidine (Pepcid) 20 mg PO BID [facility] Last Admin: 07/02/17 08:17 Dose: 20 mg Fentanyl (Duragesic 25mcg/Hr Patch) 1 patch TRANSDERM Q72H [facility] Last Admin: 07/02/17 08:17 Dose: 1 patch Gabapentin (Neurontin) 200 mg PO BID [facility] Last Admin: 07/02/17 08:18 Dose: 200 mg Gemfibrozil (Lopid) 600 mg PO AC-BID [facility] Last Admin: 07/02/17 08:15 Dose: 600 mg Sodium Chloride (Saline 0.9%) 1,000 mls @ 100 mls/hr IV .Q10H [facility] Last Admin: 07/02/17 11:24 Dose: 100 mls/hr Insulin Aspart (Novolog) 26 unit SQ AC-BRKFST [facility] Insulin Aspart (Novolog) 26 unit SQ AC-LUNCH [facility] Insulin Aspart (Novolog) 36 unit SQ AC-SUPPER [facility] Insulin Detemir (Levemir) 66 unit SQ HS [facility] Lisinopril (Zestril) 20 mg PO DAILY [facility] Last Admin: 07/02/17 08:18 Dose: 20 mg Loratadine (Claritin) 10 mg PO DAILY [facility] Last Admin: 07/02/17 08:18 Dose: 10 mg Metoclopramide HCl (Reglan) 5 mg PO ACHS [facility] Last Admin: 07/02/17 11:24 Dose: Not Given Mirtazapine (Remeron) 45 mg PO HS [facility] Morphine Sulfate (Morphine Sulfate) 2 mg IVP Q4HR PRN PRN Reason: Moderate Breakthrough Pain Stop: 07/03/17 06:00 Multivitamins (Theragran) 1 each PO DAILY [facility] Naloxone HCl (Narcan) 0.2 mg IV Q2M PRN PRN Reason: Opioid Reversal Niacin (Niacin Tr) 1,000 mg PO [facility] Ondansetron HCl (Zofran) 4 mg IVP Q8HR PRN PRN Reason: Nausea And Vomiting Prochlorperazine Maleate (Compazine) 10 mg PO TID PRN PRN Reason: Nausea Sertraline HCl (Zoloft) 200 mg PO DAILY [facility] Last Admin: 07/02/17 08:18 Dose: 200 mg Intake & Output 07/02/17 07/03/17 06:59 06:59 Intake Total 25.864 348.767 Balance 25.864 348.767 Weight 67.132 kg 67.132 kg Orders 07/02/17 15:17 Morphine Sulfate/Pf [Morphine Sulfate] 2 mg IVP Q4HR PRN 07/02/17 17:30 Insulin Aspart [NovoLOG Flexpen] 36 units SQ AC-SUPPER 07/02/17 21:00 Calcium Carb-Vit D 500Mg-200Un [Oscal 500+D] 1 each PO BID Insulin Detemir [Levemir] 66 unit SQ HS 07/03/17 06:00 Basic Metabolic Panel DAILY Complete Blood Count w/diff DAILY 07/03/17 07:30 Insulin Aspart [NovoLOG Flexpen] 26 unit SQ AC-BRKFST 07/03/17 09:00 Multivitamins, Thera [Theragran] 1 each PO DAILY 07/03/17 12:30 Insulin Aspart [NovoLOG Flexpen] 26 unit SQ AC-LUNCH 07/04/17 06:00 Basic Metabolic Panel DAILY Complete Blood Count w/diff DAILY Lab Tests 07/02/17 07/02/17 07/02/17 00:08 00:25 00:25 WBC 5.9 RBC 4.63 Hgb 14.2 Hct 41.6 MCV 89.9 MCH 30.7 MCHC 34.1 RDW 13.0 Plt Count 178 Neutrophils % 81 Lymphocytes % 16 Monocytes % 1 Eosinophils % 0 Basophils % 0 Neutrophils # 4.8 Lymphocytes # 1.0 Monocytes # 0.1 Eosinophils # 0.0 Basophils # 0.0 PT INR APTT Sodium 138 Potassium 4.0 Chloride 99 Carbon Dioxide 19 L Anion Gap 20 BUN 13 Creatinine 0.60 Est GFR (CKD-EPI)AfAm >90 Est GFR (CKD-EPI)NonAf >90 Glucose 635 H* POC Glucose (mg/dL) 576 H POC Glu Art Librarian ID Jojo Taylor Lactic Ac Sepsis Rflx Plasma Lactic Acid Dawit Calcium 9.6 Total Bilirubin 0.4 AST 28 ALT 26 Alkaline Phosphatase 144 H Total Creatine Kinase CK-MB (CK-2) CK-MB (CK-2) Rel Index Troponin I Total Protein 6.9 Albumin 4.4 Amylase 105 Lipase 119 Urine Color Urine Appearance Urine pH Ur Specific Marshall Urine Protein Urine Glucose (UA) Urine Ketones Urine Blood Urine Nitrite Urine Bilirubin Urine Urobilinogen Ur Leukocyte Esterase Acetone, Qual 07/02/17 07/02/17 07/02/17 00:25 00:25 02:13 WBC RBC Hgb Hct MCV MCH MCHC RDW Plt Count Neutrophils % Lymphocytes % Monocytes % Eosinophils % Basophils % Neutrophils # Lymphocytes # Monocytes # Eosinophils # Basophils # PT INR APTT Sodium Potassium Chloride Carbon Dioxide Anion Gap BUN Creatinine Est GFR (CKD-EPI)AfAm Est GFR (CKD-EPI)NonAf Glucose POC Glucose (mg/dL) 392 H POC Glu Art Librarian ID Janet Jang Lactic Ac Sepsis Rflx Plasma Lactic Acid Dawit Calcium Total Bilirubin AST ALT Alkaline Phosphatase Total Creatine Kinase CK-MB (CK-2) CK-MB (CK-2) Rel Index Troponin I Total Protein Albumin Amylase Lipase Urine Color Colorless Urine Appearance Clear Urine pH 5.0 Ur Specific Marshall 1.025 Urine Protein Negative Urine Glucose (UA) 4+ H Urine Ketones Negative Urine Blood Negative Urine Nitrite Negative Urine Bilirubin Negative Urine Urobilinogen <2.0 Ur Leukocyte Esterase Negative Acetone, Qual Negative 07/02/17 07/02/17 07/02/17 03:00 03:00 03:00 WBC RBC Hgb Hct MCV MCH MCHC RDW Plt Count Neutrophils % Lymphocytes % Monocytes % Eosinophils % Basophils % Neutrophils # Lymphocytes # Monocytes # Eosinophils # Basophils # PT 9.6 INR 1.0 APTT 23.9 Sodium Potassium Chloride Carbon Dioxide Anion Gap BUN Creatinine Est GFR (CKD-EPI)AfAm Est GFR (CKD-EPI)NonAf Glucose POC Glucose (mg/dL) POC Glu Art Librarian ID Lactic Ac Sepsis Rflx Plasma Lactic Acid Dawit 9.6 H* Calcium Total Bilirubin AST ALT Alkaline Phosphatase Total Creatine Kinase 138 H CK-MB (CK-2) 1.6 CK-MB (CK-2) Rel Index 1.2 Troponin I <0.012 Total Protein Albumin Amylase Lipase Urine Color Urine Appearance Urine pH Ur Specific Marshall Urine Protein Urine Glucose (UA) Urine Ketones Urine Blood Urine Nitrite Urine Bilirubin Urine Urobilinogen Ur Leukocyte Esterase Acetone, Qual 07/02/17 07/02/17 07/02/17 03:30 03:40 04:45 WBC RBC Hgb Hct MCV MCH MCHC RDW Plt Count Neutrophils % Lymphocytes % Monocytes % Eosinophils % Basophils % Neutrophils # Lymphocytes # Monocytes # Eosinophils # Basophils # PT INR APTT Sodium Potassium Chloride Carbon Dioxide Anion Gap BUN Creatinine Est GFR (CKD-EPI)AfAm Est GFR (CKD-EPI)NonAf Glucose POC Glucose (mg/dL) 403 H 435 H POC Glu Art Librarian ID Janet Jang Suhail Janet Lactic Ac Sepsis Rflx Y Plasma Lactic Acid Dawit Calcium Total Bilirubin AST ALT Alkaline Phosphatase Total Creatine Kinase CK-MB (CK-2) CK-MB (CK-2) Rel Index Troponin I Total Protein Albumin Amylase Lipase Urine Color Urine Appearance Urine pH Ur Specific Marshall Urine Protein Urine Glucose (UA) Urine Ketones Urine Blood Urine Nitrite Urine Bilirubin Urine Urobilinogen Ur Leukocyte Esterase Acetone, Qual 07/02/17 07/02/17 07/02/17 05:57 06:44 07:03 WBC RBC Hgb Hct MCV MCH MCHC RDW Plt Count Neutrophils % Lymphocytes % Monocytes % Eosinophils % Basophils % Neutrophils # Lymphocytes # Monocytes # Eosinophils # Basophils # PT INR APTT Sodium Potassium Chloride Carbon Dioxide Anion Gap BUN Creatinine Est GFR (CKD-EPI)AfAm Est GFR (CKD-EPI)NonAf Glucose POC Glucose (mg/dL) 381 H 348 H POC Glu Art Librarian ID Yanira Johnson Laura Lactic Ac Sepsis Rflx Plasma Lactic Acid Dawit 6.8 H* Calcium Total Bilirubin AST ALT Alkaline Phosphatase Total Creatine Kinase CK-MB (CK-2) CK-MB (CK-2) Rel Index Troponin I Total Protein Albumin Amylase Lipase Urine Color Urine Appearance Urine pH Ur Specific Marshall Urine Protein Urine Glucose (UA) Urine Ketones Urine Blood Urine Nitrite Urine Bilirubin Urine Urobilinogen Ur Leukocyte Esterase Acetone, Qual 07/02/17 07/02/17 07/02/17 07:58 08:26 09:04 WBC RBC Hgb Hct MCV MCH MCHC RDW Plt Count Neutrophils % Lymphocytes % Monocytes % Eosinophils % Basophils % Neutrophils # Lymphocytes # Monocytes # Eosinophils # Basophils # PT INR APTT Sodium Potassium Chloride Carbon Dioxide Anion Gap BUN Creatinine Est GFR (CKD-EPI)AfAm Est GFR (CKD-EPI)NonAf Glucose POC Glucose (mg/dL) 349 H 323 H 348 H POC Glu Art Librarian ID Rani Iglesias Solgot, Rani Solgot, Rani Lactic Ac Sepsis Rflx Plasma Lactic Acid Dawit Calcium Total Bilirubin AST ALT Alkaline Phosphatase Total Creatine Kinase CK-MB (CK-2) CK-MB (CK-2) Rel Index Troponin I Total Protein Albumin Amylase Lipase Urine Color Urine Appearance Urine pH Ur Specific Marshall Urine Protein Urine Glucose (UA) Urine Ketones Urine Blood Urine Nitrite Urine Bilirubin Urine Urobilinogen Ur Leukocyte Esterase Acetone, Qual 07/02/17 07/02/17 07/02/17 09:59 10:38 10:39 WBC RBC Hgb Hct MCV MCH MCHC RDW Plt Count Neutrophils % Lymphocytes % Monocytes % Eosinophils % Basophils % Neutrophils # Lymphocytes # Monocytes # Eosinophils # Basophils # PT INR APTT Sodium Potassium Chloride Carbon Dioxide Anion Gap BUN Creatinine Est GFR (CKD-EPI)AfAm Est GFR (CKD-EPI)NonAf Glucose POC Glucose (mg/dL) 256 H 241 H POC Glu Art Librarian ID Haily Acevedo Laura Lactic Ac Sepsis Rflx Plasma Lactic Acid Dawit 6.6 H* Calcium Total Bilirubin AST ALT Alkaline Phosphatase Total Creatine Kinase CK-MB (CK-2) CK-MB (CK-2) Rel Index Troponin I Total Protein Albumin Amylase Lipase Urine Color Urine Appearance Urine pH Ur Specific Marshall Urine Protein Urine Glucose (UA) Urine Ketones Urine Blood Urine Nitrite Urine Bilirubin Urine Urobilinogen Ur Leukocyte Esterase Acetone, Qual 07/02/17 07/02/17 07/02/17 11:06 12:20 14:49 WBC RBC Hgb Hct MCV MCH MCHC RDW Plt Count Neutrophils % Lymphocytes % Monocytes % Eosinophils % Basophils % Neutrophils # Lymphocytes # Monocytes # Eosinophils # Basophils # PT INR APTT Sodium Potassium Chloride Carbon Dioxide Anion Gap BUN Creatinine Est GFR (CKD-EPI)AfAm Est GFR (CKD-EPI)NonAf Glucose POC Glucose (mg/dL) 220 H 277 H POC Glu Art Librarian ID Nydia JoetRani Lactic Ac Sepsis Rflx Y Plasma Lactic Acid Dawit Calcium Total Bilirubin AST ALT Alkaline Phosphatase Total Creatine Kinase CK-MB (CK-2) CK-MB (CK-2) Rel Index Troponin I Total Protein Albumin Amylase Lipase Urine Color Urine Appearance Urine pH Ur Specific Marshall Urine Protein Urine Glucose (UA) Urine Ketones Urine Blood Urine Nitrite Urine Bilirubin Urine Urobilinogen Ur Leukocyte Esterase Acetone, Qual 07/02/17 14:59 WBC RBC Hgb Hct MCV MCH MCHC RDW Plt Count Neutrophils % Lymphocytes % Monocytes % Eosinophils % Basophils % Neutrophils # Lymphocytes # Monocytes # Eosinophils # Basophils # PT INR APTT Sodium Potassium Chloride Carbon Dioxide Anion Gap BUN Creatinine Est GFR (CKD-EPI)AfAm Est GFR (CKD-EPI)NonAf Glucose POC Glucose (mg/dL) POC Glu Art Librarian ID Lactic Ac Sepsis Rflx Plasma Lactic Acid Dawit 6.5 H* Calcium Total Bilirubin AST ALT Alkaline Phosphatase Total Creatine Kinase CK-MB (CK-2) CK-MB (CK-2) Rel Index Troponin I Total Protein Albumin Amylase Lipase Urine Color Urine Appearance Urine pH Ur Specific Marshall Urine Protein Urine Glucose (UA) Urine Ketones Urine Blood Urine Nitrite Urine Bilirubin Urine Urobilinogen Ur Leukocyte Esterase Acetone, Qual General appearance: cooperative, no acute distress - EENT Eyes: anicteric sclerae, PERRLA, normal appearance ENT: NA/AT, normal oropharynx - Neck Neck: normal ROM Carotids: bilateral: bruit absent Thyroid: negative: nodule -Chest Clear to auscultation, no wheezes, rales or rhonchi, resp even and unlabored. - Cardiovascular Rhythm: regular Heart sounds: normal: S1, S2 Abnormal Heart Sounds: no systolic murmur, no diastolic murmur, no rub, no S3 Gallop, no S4 Gallop, no click, no other - Gastrointestinal General gastrointestinal: normal bowel sounds, soft, tenderness mid epigastric, no rebound tenderness, no guarding. - Integumentary Integumentary: normal - Neurologic Neurologic: CNII-XII intact - Musculoskeletal Musculoskeletal: strength equal bilaterally - Psychiatric Psychiatric: A&O x's 3 Assessment and Plan Plan: 1. Hyperglycemia without DKA and evidence of lactic acidosis. Stop IV insulin gtt, restart home insulin. Accuchecks AC and HS. Clear liquid diet. 2. hypertension, on lopressor, BP controlled. 3. Anxiety and depression, continue home psychiatric medications. 4. Chronic pancreatitis without elevated enzymes. Continue enzyme replacement, statin and lopid. May have Morphine for 24hours only. 5. DVT prophylaxis with heparin. 7. GI prophylaxis with protonix. 8. Falls, pt threw herself on the floor to prevent discharge from the ED. Continue with sitter. 9. If the pt tolerates clear liquids and her blood sugar is controlled, she will be discharged tomorrow morning. I advised nursing staff to call security in the morning before the pt is discharged to avoid any conflicts. Rani Linares BANNER- Dictating for Dr. Chante Nunez MD Impression and plan of care have been directed as dictated by the signing physician. Past Medical History Past Medical History: Coronary Artery Disease (CAD), Diabetes Mellitus, GERD/ Reflux, Hyperlipidemia, Hypertension, Syncope Additional Past Medical History / Comment(s): IDDM type II, recurrent DKA, episodes of hyperosmolar nonketonic hyperglycemia, hypertensive heart disease, chronic pain syndrome, hypertriglyceridemia, chronic pancreatitis, chronic abdominal pain, gastroparesis, severe GERD, diabetic polyneuropathy mostly in hands and alittle in feet bilaterally, infectious colitis. History of Any Multi-Drug Resistant Organisms: C-DIFF Date of last positivie culture/infection: pt. unsure MDRO Source:: stool Past Surgical History: Cholecystectomy Additional Past Surgical History / Comment(s): Biliary stent through an ERCP that was performed at [facility] and stent removed 2007, lap jenn, colonoscopy, ERCP. Past Anesthesia/Blood Transfusion Reactions: No Reported Reaction Additional Past Anesthesia/Blood Transfusion Reaction / Comment(s): Pt has never received blood."CLAUSTERPHOBIA" Past Psychological History: Anxiety, Depression, Panic Disorder, PTSD Additional Psychological History / Comment(s): Pt lives in her home with her gadiel , son-in-law and 2 grandchildren. Pt. states it is organized chaos. She is independent. She currently is on disability. She drives a car a limited amount- family drive her places at times. She has anxiety and occasional anxiety-panic attacks. She sees Dr. Fink at [facility] and is councelled by Chad Samuels. She states her current psych med rigeme is working well. Her gadiel and dad help her out. She has a rescue dog. Smoking Status: Never smoker Past Alcohol Use History: Rare Past Drug Use History: None Reported - Past Family History Sister(s) Additional Family Medical History / Comment(s): Patient has 2 sisters with no major medical problems. Daughter(s) Additional Family Medical History / Comment(s): Patient has 2 daughters and one had mitral valve replacement. Son(s) Additional Family Medical History / Comment(s): She has one son with no major medical problems. Brother(s) Additional Family Medical History / Comment(s): Does not have any brothers. Father Family Medical History: No Reported History Additional Family Medical History / Comment(s): Father is 79 years of age with severe anxiety and was hospitalized for this at times. Mother Family Medical History: Cancer Additional Family Medical History / Comment(s): Mother of metastatic breast CA at the age of 42yrs. pt. states her grandmother had diabetes as well Medications and Allergies Home Medications Medication Instructions Recorded Confirmed Type Lisinopril [Zestril] 20 mg PO DAILY 09/09/13 07/02/17 History Gabapentin [Neurontin] 200 mg PO BID cap 08/09/14 07/02/17 Rx Metoclopramide [Reglan] 5 mg PO ACHS tab 08/09/14 07/02/17 Rx Prochlorperazine [Compazine] 10 mg PO TID PRN #0 tab 08/09/14 07/02/17 Rx Sertraline [Zoloft] 200 mg PO DAILY tab 08/09/14 07/02/17 Rx HYDROmorphone [Dilaudid] 2 mg PO Q8H PRN 09/17/14 07/02/17 History Multivitamins, Thera [Multivitamin 1 tab PO DAILY 09/17/14 07/02/17 History (formulary)] Atenolol [Tenormin] 100 mg PO DAILY 11/19/14 07/02/17 History Calcium Carb-Vit D 500Mg-200Un 1 tab PO BID 11/19/14 07/02/17 History [Oscal 500+D] Mirtazapine [Remeron] 45 mg PO HS 11/19/14 07/02/17 History Rosuvastatin Calcium [Crestor] 40 mg PO HS 11/19/14 07/02/17 History fentaNYL 25MCG/HR PATCH [Duragesic 1 patch TRANSDERM Q72H #0 07/10/15 07/02/17 Rx 25MCG/HR] Insulin Aspart [NovoLOG Flexpen] 26 unit SQ AC-BRKFST 10/14/15 07/02/17 History Insulin Aspart [NovoLOG Flexpen] 26 unit SQ AC-LUNCH 10/14/15 07/02/17 History Insulin Aspart [NovoLOG Flexpen] 36 units SQ AC-SUPPER 10/14/15 07/02/17 History Pancreatic Enzymes Otc(Unknown) 1 cap PO AC-TID 10/14/15 07/02/17 History Cetirizine HCl [Zyrtec] 10 mg PO DAILY 02/04/16 07/02/17 History Niacin 1,000 mg PO HS 02/04/16 07/02/17 History clonazePAM [KlonoPIN] 2 mg PO HS 02/04/16 07/02/17 History Dicyclomine [Bentyl] 10 mg PO TID PRN #90 cap 03/22/16 07/02/17 Rx Famotidine [Pepcid] 20 mg PO BID #0 03/22/16 07/02/17 Rx Insulin Detemir [Levemir] 66 unit SQ HS 07/21/16 07/02/17 History clonazePAM [KlonoPIN] 1 mg PO QAM 07/21/16 07/02/17 History Mag Hydrox/Al Hydrox/Simeth 30 ml PO QID PRN 05/04/17 07/02/17 History [Maalox] Gemfibrozil [Lopid] 600 mg PO AC-BID 07/02/17 07/02/17 History Allergies Allergy/AdvReac Type Severity Reaction Status Date / Time NSAIDS (Non-Steroidal Allergy Rash/Hives Verified 07/02/17 11:16 Anti-Inflamma Physical Exam Vitals: Vital Signs Temp Pulse Pulse Resp BP BP Pulse Ox 07/02/17 15:00 97.5 F L 71 16 129/76 98 07/02/17 06:34 98.0 F 91 16 119/65 95 07/02/17 05:48 16 07/02/17 04:00 89 16 129/69 96 07/02/17 02:52 88 16 134/83 96 07/02/17 01:26 87 16 127/65 96 07/01/17 23:44 98.0 F 113 H 18 130/84 96 Intake and Output 07/02/17 07/02/17 07/02/17 06:59 14:59 22:59 Intake Total 25.864 348.767 Balance 25.864 348.767 Intake: Intake, IV Titration 25.864 28.767 Amount Insulin Regular 100 unit 25.864 In Sodium Chloride 0.9% 100 ml @ 0.1 UNITS/KG/HR 6.78 mls/hr IV .[id number] ZACK Rx#:[id number] Insulin Regular 100 unit 28.767 In Sodium Chloride 0.9% 100 ml @ Titrate IV .Q0M ZACK Rx#:[id number] Oral 320 Other: # Voids 1 2 Weight 67.132 kg 67.132 kg Results CBC & Chem 7: 07/02/17 00:25 07/02/17 00:25 Labs: Abnormal Lab Results - Last 24 Hours (Table) 07/02/17 07/02/17 07/02/17 Range/Units 00:08 00:25 00:25 Carbon Dioxide 19 L (22-30) mmol/L Glucose 635 H* (74-99) mg/dL POC Glucose (mg/dL) 576 H (75-99) mg/dL Plasma Lactic Acid Dawit (0.7-2.0) mmol/L Alkaline Phosphatase 144 H (38-126) U/L Total Creatine Kinase (30-135) U/L Urine Glucose (UA) 4+ H (Negative) 07/02/17 07/02/17 07/02/17 Range/Units 02:13 03:00 03:00 Carbon Dioxide (22-30) mmol/L Glucose (74-99) mg/dL POC Glucose (mg/dL) 392 H (75-99) mg/dL Plasma Lactic Acid Dawit 9.6 H* (0.7-2.0) mmol/L Alkaline Phosphatase (38-126) U/L Total Creatine Kinase 138 H (30-135) U/L Urine Glucose (UA) (Negative) 07/02/17 07/02/17 07/02/17 Range/Units 03:40 04:45 05:57 Carbon Dioxide (22-30) mmol/L Glucose (74-99) mg/dL POC Glucose (mg/dL) 403 H 435 H 381 H (75-99) mg/dL Plasma Lactic Acid Dawit (0.7-2.0) mmol/L Alkaline Phosphatase (38-126) U/L Total Creatine Kinase (30-135) U/L Urine Glucose (UA) (Negative) 07/02/17 07/02/17 07/02/17 Range/Units 06:44 07:03 07:58 Carbon Dioxide (22-30) mmol/L Glucose (74-99) mg/dL POC Glucose (mg/dL) 348 H 349 H (75-99) mg/dL Plasma Lactic Acid Dawit 6.8 H* (0.7-2.0) mmol/L Alkaline Phosphatase (38-126) U/L Total Creatine Kinase (30-135) U/L Urine Glucose (UA) (Negative) 07/02/17 07/02/17 07/02/17 Range/Units 08:26 09:04 09:59 Carbon Dioxide (22-30) mmol/L Glucose (74-99) mg/dL POC Glucose (mg/dL) 323 H 348 H 256 H (75-99) mg/dL Plasma Lactic Acid Dawit (0.7-2.0) mmol/L Alkaline Phosphatase (38-126) U/L Total Creatine Kinase (30-135) U/L Urine Glucose (UA) (Negative) 07/02/17 07/02/17 07/02/17 Range/Units 10:38 10:39 12:20 Carbon Dioxide (22-30) mmol/L Glucose (74-99) mg/dL POC Glucose (mg/dL) 241 H 220 H (75-99) mg/dL Plasma Lactic Acid Dawit 6.6 H* (0.7-2.0) mmol/L Alkaline Phosphatase (38-126) U/L Total Creatine Kinase (30-135) U/L Urine Glucose (UA) (Negative) 07/02/17 Range/Units 14:49 Carbon Dioxide (22-30) mmol/L Glucose (74-99) mg/dL POC Glucose (mg/dL) 277 H (75-99) mg/dL Plasma Lactic Acid Dawit (0.7-2.0) mmol/L Alkaline Phosphatase (38-126) U/L Total Creatine Kinase (30-135) U/L Urine Glucose (UA) (Negative) Thrombosis Risk Factor Assmnt - Choose All That Apply Each Factor Represents 1 point: Age 41-60 years, Serious lung disease incl. pneumonia (< 1month) Other Risk Factors: No Other congenital or acquired thrombophilia - If yes, enter type in comment: No Thrombosis Risk Factor Assessment Total Risk Factor Score: 2 Thrombosis Risk Factor Assessment Level: Low Risk
[2017-07-02] MEDS: MORPHINE SULFATE/PF 10MG/10ML VL IVP PRN ×2 (15:49→20:02)
[2017-07-02] MEDS: PANTOPRAZOLE 40 MG/10 ML VIAL IVP SCH (16:39)
[2017-07-02 17:35] LABS: Glucose,Whole Blood 202 mg/dL (75-99)
[2017-07-02 19:05] LABS: Glucose,Whole Blood 224 mg/dL (75-99)
[2017-07-02 20:43] LABS: Hemoglobin A1C 9.6 % (4.0-6.0)
[2017-07-02 20:47] LABS: Glucose,Whole Blood 184 mg/dL (75-99)
[2017-07-02] MEDS ORDERED: MIRTAZAPINE 45 MG TABLET PO SCH (21:00)
[2017-07-02] MEDS ORDERED: ATORVASTATIN 80 MG TAB PO SCH (21:00)
[2017-07-02] MEDS ORDERED: NIACIN TR 500 MG CAPSULE.ER PO SCH (21:00)
[2017-07-02] MEDS ORDERED: clonazePAM 1 MG TAB PO SCH (21:00)
[2017-07-02] MEDS ORDERED: INSULIN DETEMIR 100 UNIT/ML 10 ML VIAL SQ SCH (21:00)
[2017-07-02] MEDS: CALCIUM CARB-VIT D 500MG-200UN 1 EACH TAB PO SCH (21:33)
[2017-07-02] MEDS: HEPARIN SODIUM,PORCINE 5,000 UNIT/ML 1 ML VIAL SQ SCH (21:35)
[2017-07-03] MEDS: MORPHINE SULFATE/PF 10MG/10ML VL IVP PRN (02:00)
[2017-07-03 04:45] LABS: Glucose,Whole Blood 117 mg/dL (75-99)
[2017-07-03 05:17] VITALS: BP 107/62; PULSE 71; RESP 14; TEMP 97.5
[2017-07-03 07:24] LABS: Glucose,Whole Blood 115 mg/dL (75-99)
[2017-07-03] MEDS ORDERED: INSULIN ASPART 100 UNIT/ML 1 ML 10 ML VIAL SQ SCH ×2 (07:30→12:30)
[2017-07-03] MEDS: GEMFIBROZIL 600 MG TAB PO SCH (08:13)
[2017-07-03] MEDS: SODIUM CHLORIDE 0.9% 1,000 ML IV SCH (08:13)
[2017-07-03] MEDS: METOCLOPRAMIDE 5 MG TAB PO SCH (08:14)
[2017-07-03] MEDS: CALCIUM CARB-VIT D 500MG-200UN 1 EACH TAB PO SCH (08:15)
[2017-07-03] MEDS: ATENOLOL 50 MG TAB PO SCH (08:15)
[2017-07-03] MEDS: FAMOTIDINE 20 MG TAB PO SCH (08:16)
[2017-07-03] MEDS: clonazePAM 1 MG TAB PO SCH (08:16)
[2017-07-03] MEDS: GABAPENTIN 100 MG CAP PO SCH (08:16)
[2017-07-03] MEDS: SERTRALINE 100 MG TAB PO SCH (08:17)
[2017-07-03] MEDS: PANTOPRAZOLE 40 MG/10 ML VIAL IVP SCH (08:17)
[2017-07-03] MEDS: LORATADINE 10 MG TAB PO SCH (08:17)
[2017-07-03] MEDS: HEPARIN SODIUM,PORCINE 5,000 UNIT/ML 1 ML VIAL SQ SCH (08:17)
[2017-07-03] MEDS: LISINOPRIL 20 MG TAB PO SCH (08:17)
[2017-07-03 08:54] LABS: Basophils % (A) 0 %; Eosinophils # (A) 0.1 k/uL (0-0.7); Eosinophils % (A) 1 %; HGB 12.7 gm/dL (11.4-16.0); Lymphocytes # (A) 3.1 k/uL (1.0-4.8); Lymphocytes % (A) 41 %; MCH 30.5 pg (25.0-35.0); MCHC 34.4 g/dL (31.0-37.0); MCV 88.7 fL (80.0-100.0); Mean Platelet Volume 6.4; Monocytes # (A) 0.3 k/uL (0-1.0); Monocytes % (A) 4 %; Neutrophils % (A) 52 %; Platelet Count 159 k/uL (150-450); RBC 4.17 m/uL (3.80-5.40); RDW 13.1 % (11.5-15.5); WBC 7.6 k/uL (3.8-10.6)
[2017-07-03] MEDS ORDERED: MULTIVITAMINS, THERA 1 EACH TAB PO SCH (09:00)
[2017-07-03 09:08] LABS: Anion Gap 10 mmol/L; Blood Urea Nitrogen 4 mg/dL (7-17); Calcium 8.4 mg/dL (8.4-10.2); Carbon Dioxide 21 mmol/L (22-30); Chloride 116 mmol/L (98-107); Glucose 112 mg/dL (74-99); Potassium 3.7 mmol/L (3.5-5.1); Sodium 147 mmol/L (137-145)
--- NOTE | 2017-07-03 14:23 | P.DS ---
Providers Date of admission: 07/02/17 04:51 Expected date of discharge: 07/03/17 Attending physician: Chante Nunez Consults: 07/02/17 06:54 Consult Physician Routine Consulting Provider: Liborio Henderson Consult Reason/Comments: vomiting. pancreatitis Do you want consulting provider notified?: Yes Primary care physician: Mike Borges [facility] Course: This is a 52-year-old female patient who presented to the emergency department with hyperglycemia and abdominal discomfort. She was not found to be in DKA. She states on insulin drip and admitted to the medical unit. The patient initially was going to be discharged from the emergency department when she got upset and locked herself in the bathroom. She was still going to be discharged and proceeded to throw herself on the floor hitting her forehead. She did not sustain any injury. She was also seen pinching her insulin drip line and attempt to keep her blood sugar up so she could be admitted. The patient was requesting IV pain medication for her chronic pancreatitis. Amylase and lipase were normal. She had extensive workup at the [facility] and everything was negative. The patient has a known history of narcotic abuse. She is prescribed oral Dilaudid by her primary care physician. She was given limited doses of IV morphine for 18 hours. Her IV insulin drip was discontinued and she was placed back on her normal insulin regimen. Her blood sugars normalized. She was eating without any nausea. She was deemed stable for discharge home today. Patient Condition at Discharge: Good Plan - Discharge Summary New Discharge Prescriptions: No Action Lisinopril [Zestril] 20 mg PO DAILY Gabapentin [Neurontin] 200 mg PO BID cap Metoclopramide [Reglan] 5 mg PO ACHS tab Prochlorperazine [Compazine] 10 mg PO TID PRN #0 tab PRN Reason: Nausea Sertraline [Zoloft] 200 mg PO DAILY tab HYDROmorphone [Dilaudid] 2 mg PO Q8H PRN PRN Reason: Pain Multivitamins, Thera [Multivitamin (formulary)] 1 tab PO DAILY Calcium Carb-Vit D 500Mg-200Un [Oscal 500+D] 1 tab PO BID Atenolol [Tenormin] 100 mg PO DAILY Mirtazapine [Remeron] 45 mg PO HS Rosuvastatin Calcium [Crestor] 40 mg PO HS fentaNYL 25MCG/HR PATCH [Duragesic 25MCG/HR] 1 patch TRANSDERM Q72H #0 Insulin Aspart [NovoLOG Flexpen] 36 units SQ AC-SUPPER Insulin Aspart [NovoLOG Flexpen] 26 unit SQ AC-BRKFST Insulin Aspart [NovoLOG Flexpen] 26 unit SQ AC-LUNCH Pancreatic Enzymes Otc(Unknown) 1 cap PO AC-TID Cetirizine HCl [Zyrtec] 10 mg PO DAILY Niacin 1,000 mg PO HS clonazePAM [KlonoPIN] 2 mg PO HS Dicyclomine [Bentyl] 10 mg PO TID PRN #90 cap PRN Reason: Diarrhea Famotidine [Pepcid] 20 mg PO BID #0 Insulin Detemir [Levemir] 66 unit SQ HS clonazePAM [KlonoPIN] 1 mg PO QAM Mag Hydrox/Al Hydrox/Simeth [Maalox] 30 ml PO QID PRN PRN Reason: Constipation Gemfibrozil [Lopid] 600 mg PO AC-BID Discharge Medication List Lisinopril [Zestril] 20 mg PO DAILY 09/09/13 [History] Gabapentin [Neurontin] 200 mg PO BID cap 08/09/14 [Rx] Metoclopramide [Reglan] 5 mg PO ACHS tab 08/09/14 [Rx] Prochlorperazine [Compazine] 10 mg PO TID PRN #0 tab 08/09/14 [Rx] Sertraline [Zoloft] 200 mg PO DAILY tab 08/09/14 [Rx] HYDROmorphone [Dilaudid] 2 mg PO Q8H PRN 09/17/14 [History] Multivitamins, Thera [Multivitamin (formulary)] 1 tab PO DAILY 09/17/14 [History ] Atenolol [Tenormin] 100 mg PO DAILY 11/19/14 [History] Calcium Carb-Vit D 500Mg-200Un [Oscal 500+D] 1 tab PO BID 11/19/14 [History] Mirtazapine [Remeron] 45 mg PO HS 11/19/14 [History] Rosuvastatin Calcium [Crestor] 40 mg PO HS 11/19/14 [History] fentaNYL 25MCG/HR PATCH [Duragesic 25MCG/HR] 1 patch TRANSDERM Q72H #0 07/10/15 [Rx] Insulin Aspart [NovoLOG Flexpen] 26 unit SQ AC-BRKFST 10/14/15 [History] Insulin Aspart [NovoLOG Flexpen] 26 unit SQ AC-LUNCH 10/14/15 [History] Insulin Aspart [NovoLOG Flexpen] 36 units SQ AC-SUPPER 10/14/15 [History] Pancreatic Enzymes Otc(Unknown) 1 cap PO AC-TID 10/14/15 [History] Cetirizine HCl [Zyrtec] 10 mg PO DAILY 02/04/16 [History] Niacin 1,000 mg PO HS 02/04/16 [History] clonazePAM [KlonoPIN] 2 mg PO HS 02/04/16 [History] Dicyclomine [Bentyl] 10 mg PO TID PRN #90 cap 03/22/16 [Rx] Famotidine [Pepcid] 20 mg PO BID #0 03/22/16 [Rx] Insulin Detemir [Levemir] 66 unit SQ HS 07/21/16 [History] clonazePAM [KlonoPIN] 1 mg PO QAM 07/21/16 [History] Mag Hydrox/Al Hydrox/Simeth [Maalox] 30 ml PO QID PRN 05/04/17 [History] Gemfibrozil [Lopid] 600 mg PO AC-BID 07/02/17 [History] Follow up Appointment(s)/Referral(s): Mike Borges MD [Primary Care Provider] - 1-2 days (Office closed for weekend, please call and schedule appt on Tuesday.) Patient Instructions/Handouts: Fall Prevention (DC), Lactic Acidosis (GEN) Activity/Diet/Wound Care/Special Instructions: Activity as tolerated. Advance diet as tolerated. Discharge Disposition: HOME SELF-CARE
== END 2017-07-03 09:39 | disposition home or self-care (01) | DRG 638 ==
LOC: EC 23:38 → 4MS4W 07-02 04:51
PROVIDERS: ADMIT Internal Medicine; ATTEND Internal Medicine
DX: E11.65 Type 2 diabetes mellitus with hyperglycemia (principal); E87.2 Acidosis; K86.1 Other chronic pancreatitis; E11.42 Type 2 diabetes mellitus with diabetic polyneuropathy; K31.84 Gastroparesis; I11.9 Hypertensive heart disease without heart failure; E78.1 Pure hyperglyceridemia; E78.5 Hyperlipidemia, unspecified; E86.0 Dehydration; F32.9 Major depressive disorder, single episode, unspecified; F41.0 Panic disorder [episodic paroxysmal anxiety]; F43.10 Post-traumatic stress disorder, unspecified; G89.4 Chronic pain syndrome; I25.10 Atherosclerotic heart disease of native coronary artery without angina pectoris; K21.9 Gastro-esophageal reflux disease without esophagitis; R19.7 Diarrhea, unspecified; E11.43 Type 2 diabetes mellitus with diabetic autonomic (poly)neuropathy; R55 Syncope and collapse; R51 Headache; Z79.4 Long term (current) use of insulin; Z79.899 Other long term (current) drug therapy; Z88.6 Allergy status to analgesic agent; Z90.49 Acquired absence of other specified parts of digestive tract; W18.39XA Other fall on same level, initial encounter; Y92.231 Patient bathroom in hospital as the place of occurrence of the external cause
CPT/HCPCS: 36415; 70450; 72125; 74018; 80048; 80053; 81003; 82009; 82150; 82550; 82553; 83036; 83605; 83690; 84484; 85025; 85610; 85730; 96374; 96375; 99285

== ENCOUNTER 2017-08-17 02:01 | Inpatient (IN) | payer MEDICARE ==
[2017-08-17] MEDS ORDERED: SODIUM CHLORIDE 0.9% 1,000 ML IV STA ×3 (02:28→04:13)
[2017-08-17] MEDS ORDERED: ONDANSETRON ODT 8 MG TAB.RAPDIS PO STA (02:28)
[2017-08-17] MEDS ORDERED: MORPHINE SULFATE 4 MG/ML SYRINGE IVP STA (02:29)
--- NOTE | 2017-08-17 02:32 | ED ---
General Adult HPI - General Source: patient, RN notes reviewed Mode of arrival: ambulatory Limitations: no limitations <Zaire Johnson - Last Filed: 08/17/17 04:40> <Pardeep Clarke - Last Filed: 08/17/17 04:55> - General Chief complaint: Abdominal Pain Stated complaint: High Blood sugar Time Seen by Provider: 08/17/17 02:23 - History of Present Illness Initial comments: Patient 52-year-old female presented to the emergency room today with chief complaint of abdominal pain and elevated blood sugar. Patient states centimeter right eye earlier today. She does admit that she took insulin prior to coming to the hospital. Patient does admit that symptoms are somewhat consistent pancreatitis that she's had in the past.. Patient states pain is located in the middle the abdomen. She denies any complaints or symptoms. Patient denies any recent fever, chills, shortness of breath, chest pain, numbness or tingling, headaches or visual changes, or any other complaints. ( Zaire Johnson) - Related Data Home Medications Medication Instructions Recorded Confirmed Lisinopril [Zestril] 20 mg PO DAILY 09/09/13 08/17/17 HYDROmorphone [Dilaudid] 2 mg PO Q8H PRN 09/17/14 08/17/17 Multivitamins, Thera [Multivitamin 1 tab PO DAILY 09/17/14 08/17/17 (formulary)] Atenolol [Tenormin] 100 mg PO DAILY 11/19/14 08/17/17 Calcium Carb-Vit D 500Mg-200Un 1 tab PO BID 11/19/14 08/17/17 [Oscal 500+D] Mirtazapine [Remeron] 45 mg PO HS 11/19/14 08/17/17 Rosuvastatin Calcium [Crestor] 40 mg PO HS 11/19/14 08/17/17 Insulin Aspart [NovoLOG Flexpen] 26 unit SQ AC-BRKFST 10/14/15 08/17/17 Insulin Aspart [NovoLOG Flexpen] 26 unit SQ AC-LUNCH 10/14/15 08/17/17 Insulin Aspart [NovoLOG Flexpen] 36 units SQ AC-SUPPER 10/14/15 08/17/17 Pancreatic Enzymes Otc(Unknown) 1 cap PO AC-TID 10/14/15 08/17/17 Cetirizine HCl [Zyrtec] 10 mg PO DAILY 02/04/16 08/17/17 Niacin 1,000 mg PO HS 02/04/16 08/17/17 clonazePAM [KlonoPIN] 2 mg PO HS 02/04/16 08/17/17 Insulin Detemir [Levemir] 66 unit SQ HS 07/21/16 08/17/17 clonazePAM [KlonoPIN] 1 mg PO QAM 07/21/16 08/17/17 Mag Hydrox/Al Hydrox/Simeth 30 ml PO QID PRN 05/04/17 08/17/17 [Maalox] Gemfibrozil [Lopid] 600 mg PO AC-BID 07/02/17 08/17/17 Previous Rx's Medication Instructions Recorded Gabapentin [Neurontin] 200 mg PO BID cap 08/09/14 Metoclopramide [Reglan] 5 mg PO ACHS tab 08/09/14 Prochlorperazine [Compazine] 10 mg PO TID PRN #0 tab 08/09/14 Sertraline [Zoloft] 200 mg PO DAILY tab 08/09/14 fentaNYL 25MCG/HR PATCH [Duragesic 1 patch TRANSDERM Q72H #0 07/10/15 25MCG/HR] Dicyclomine [Bentyl] 10 mg PO TID PRN #90 cap 03/22/16 Famotidine [Pepcid] 20 mg PO BID #0 03/22/16 Allergies Allergy/AdvReac Type Severity Reaction Status Date / Time NSAIDS (Non-Steroidal Allergy Rash/Hives Verified 07/02/17 11:16 Anti-Inflamma Review of Systems ROS Other: All systems not noted in ROS Statement are negative. <Zaire Johnson - Last Filed: 08/17/17 04:40> ROS Other: All systems not noted in ROS Statement are negative. <Pardeep Clarke - Last Filed: 08/17/17 04:55> ROS Statement: Those systems with pertinent positive or pertinent negative responses have been documented in the HPI. Past Medical History Past Medical History: Coronary Artery Disease (CAD), Diabetes Mellitus, GERD/ Reflux, Hyperlipidemia, Hypertension, Syncope Additional Past Medical History / Comment(s): IDDM type II, recurrent DKA, episodes of hyperosmolar nonketonic hyperglycemia, hypertensive heart disease, chronic pain syndrome, hypertriglyceridemia, chronic pancreatitis, chronic abdominal pain, gastroparesis, severe GERD, diabetic polyneuropathy mostly in hands and alittle in feet bilaterally, infectious colitis. History of Any Multi-Drug Resistant Organisms: C-DIFF Date of last positivie culture/infection: pt. unsure MDRO Source:: stool Past Surgical History: Cholecystectomy Additional Past Surgical History / Comment(s): Biliary stent through an ERCP that was performed at [facility] and stent removed 2007, lap jenn, colonoscopy, ERCP. Past Anesthesia/Blood Transfusion Reactions: No Reported Reaction Additional Past Anesthesia/Blood Transfusion Reaction / Comment(s): Pt has never received blood."CLAUSTERPHOBIA" Past Psychological History: Anxiety, Depression, Panic Disorder, PTSD Smoking Status: Never smoker Past Alcohol Use History: Rare Past Drug Use History: None Reported - Past Family History Sister(s) Additional Family Medical History / Comment(s): Patient has 2 sisters with no major medical problems. Daughter(s) Additional Family Medical History / Comment(s): Patient has 2 daughters and one had mitral valve replacement. Son(s) Additional Family Medical History / Comment(s): She has one son with no major medical problems. Brother(s) Additional Family Medical History / Comment(s): Does not have any brothers. Father Family Medical History: No Reported History Additional Family Medical History / Comment(s): Father is 79 years of age with severe anxiety and was hospitalized for this at times. Mother Family Medical History: Cancer Additional Family Medical History / Comment(s): Mother of metastatic breast CA at the age of 42yrs. pt. states her grandmother had diabetes as well <Zaire Johnson - Last Filed: 08/17/17 04:40> General Exam Limitations: no limitations <Zaire Johnson - Last Filed: 08/17/17 04:40> <Pardeep Clarke - Last Filed: 08/17/17 04:55> - General Exam Comments Initial Comments: General: The patient is awake and alert, in no distress, and does not appear acutely ill. Eye: Pupils are equal, round and reactive to light, extra-ocular movements are intact. No nystagmus. There is normal conjunctiva bilaterally. No signs of icterus. Ears, nose, mouth and throat: There are moist mucous membranes and no oral lesions. Neck: The neck is supple, there is no tenderness or JVD. Cardiovascular: There is a regular rate and rhythm. No murmur, rub or gallop is appreciated. Respiratory: Lungs are clear to auscultation, respirations are non-labored, breath sounds are equal. No wheezes, stridor, rales, or rhonchi. Gastrointestinal: Tender to palpation in the upper quadrant both left and right in epigastric. No rebound tenderness. No Guarding. Musculoskeletal: Normal ROM, no tenderness. Strength 5/5. Sensation intact. Pulses equal bilaterally 2+. Neurological: A&O x 3. CN II-XII intact, There are no obvious motor or sensory deficits. Coordination appears grossly intact. Speech is normal. Skin: Skin is warm and dry and no rashes or lesions are noted. Psychiatric: Cooperative, appropriate mood & affect, normal judgment. (Zaire Johnson) Vital Signs 08/17/17 02:12 Temperature 97.9 F Pulse Rate 109 H Respiratory 18 Rate Blood Pressure 137/90 O2 Sat by Pulse 98 Oximetry Medical Decision Making - Lab Data Result diagrams: 08/17/17 03:27 08/17/17 03:19 <Zaire Johnson - Last Filed: 08/17/17 04:40> - Lab Data Result diagrams: 08/17/17 03:27 08/17/17 03:19 <Pardeep Clarke - Last Filed: 08/17/17 04:55> - Medical Decision Making Patient's blood sugar elevated greater than 800 here in emergency room. Lactic acid greater than 10. Patient given 2 L fluids. Acetone an x-ray currently pending patient will be admitted she does have history of similar findings in the past states this is similar. Patient started on insulin drip here in the ER and will be admitted to the hospital. (Zaire Johnson) Patient reevaluated by myself, Dr. Clarke. Patient resting comfortably in bed. Abdomen is soft with mild epigastric tenderness. Patient states discomfort is only mild at this time. Patient has been having diarrhea since yesterday. High blood sugar greater than 600 prior to arrival. Patient updated on results and plan. Patient has been given fluid boluses. Patient placed on IV insulin drip. Case was discussed in detail with Dr. Borges who is familiar with this patient and will admit. (Pardeep Clarke) - Lab Data Lab Results 08/17/17 08/17/17 08/17/17 Range/Units 03:02 03:19 03:27 WBC 3.9 (3.8-10.6) k/uL RBC 4.58 (3.80-5.40) m/uL Hgb 13.4 (11.4-16.0) gm/dL Hct 42.6 (34.0-46.0) % MCV 92.9 (80.0-100.0) fL MCH 29.2 (25.0-35.0) pg MCHC 31.4 (31.0-37.0) g/dL RDW 13.0 (11.5-15.5) % Plt Count 135 L (150-450) k/uL Neutrophils % 78 % Lymphocytes % 19 % Monocytes % 2 % Eosinophils % 0 % Basophils % 0 % Neutrophils # 3.0 (1.3-7.7) k/uL Lymphocytes # 0.7 L (1.0-4.8) k/uL Monocytes # 0.1 (0-1.0) k/uL Eosinophils # 0.0 (0-0.7) k/uL Basophils # 0.0 (0-0.2) k/uL Hypochromasia Slight Sodium 136 L (137-145) mmol/L Potassium 4.9 (3.5-5.1) mmol/L Chloride 97 L (98-107) mmol/L Carbon Dioxide 12 L (22-30) mmol/L Anion Gap 27 mmol/L BUN 13 (7-17) mg/dL Creatinine 0.60 (0.52-1.04) mg/dL Est GFR (CKD-EPI)AfAm >90 (>60 ml/min/1.73 sqM) Est GFR (CKD-EPI)NonAf >90 (>60 ml/min/1.73 sqM) Glucose 876 H* (74-99) mg/dL Plasma Lactic Acid Dawit (0.7-2.0) mmol/L Calcium 9.9 (8.4-10.2) mg/dL Total Bilirubin 0.7 (0.2-1.3) mg/dL AST 41 H (14-36) U/L ALT 32 (9-52) U/L Alkaline Phosphatase 130 H (38-126) U/L Total Protein 7.0 (6.3-8.2) g/dL Albumin 4.8 (3.5-5.0) g/dL Amylase 84 (30-110) U/L Lipase 71 (23-300) U/L Urine Color Colorless Urine Appearance Clear (Clear) Urine pH 5.0 (5.0-8.0) Ur Specific Eden 1.026 (1.001-1.035) Urine Protein Negative (Negative) Urine Glucose (UA) 4+ H (Negative) Urine Ketones Negative (Negative) Urine Blood Negative (Negative) Urine Nitrite Negative (Negative) Urine Bilirubin Negative (Negative) Urine Urobilinogen <2.0 (<2.0) mg/dL Ur Leukocyte Esterase Negative (Negative) 08/17/17 Range/Units 03:27 WBC (3.8-10.6) k/uL RBC (3.80-5.40) m/uL Hgb (11.4-16.0) gm/dL Hct (34.0-46.0) % MCV (80.0-100.0) fL MCH (25.0-35.0) pg MCHC (31.0-37.0) g/dL RDW (11.5-15.5) % Plt Count (150-450) k/uL Neutrophils % % Lymphocytes % % Monocytes % % Eosinophils % % Basophils % % Neutrophils # (1.3-7.7) k/uL Lymphocytes # (1.0-4.8) k/uL Monocytes # (0-1.0) k/uL Eosinophils # (0-0.7) k/uL Basophils # (0-0.2) k/uL Hypochromasia Sodium (137-145) mmol/L Potassium (3.5-5.1) mmol/L Chloride (98-107) mmol/L Carbon Dioxide (22-30) mmol/L Anion Gap mmol/L BUN (7-17) mg/dL Creatinine (0.52-1.04) mg/dL Est GFR (CKD-EPI)AfAm (>60 ml/min/1.73 sqM) Est GFR (CKD-EPI)NonAf (>60 ml/min/1.73 sqM) Glucose (74-99) mg/dL Plasma Lactic Acid Dawit 10.6 H* (0.7-2.0) mmol/L Calcium (8.4-10.2) mg/dL Total Bilirubin (0.2-1.3) mg/dL AST (14-36) U/L ALT (9-52) U/L Alkaline Phosphatase (38-126) U/L Total Protein (6.3-8.2) g/dL Albumin (3.5-5.0) g/dL Amylase (30-110) U/L Lipase (23-300) U/L Urine Color Urine Appearance (Clear) Urine pH (5.0-8.0) Ur Specific Eden (1.001-1.035) Urine Protein (Negative) Urine Glucose (UA) (Negative) Urine Ketones (Negative) Urine Blood (Negative) Urine Nitrite (Negative) Urine Bilirubin (Negative) Urine Urobilinogen (<2.0) mg/dL Ur Leukocyte Esterase (Negative) Disposition Is patient prescribed a controlled substance at d/c from ED?: No Time of Disposition: 04:42 <Zaire Johnson - Last Filed: 08/17/17 04:40> <Pardeep Clarke - Last Filed: 08/17/17 04:55> Clinical Impression: Lactic acidosis, Hyperglycemia Disposition: ADMITTED IP TO THIS HOSP Condition: Stable Referrals: Mike Borges MD [Primary Care Provider] - 1-2 days
[2017-08-17 03:23] LABS: Appearance,Urine Clear (Clear); Bilirubin,Urine Negative (Negative); Blood,Urine Negative (Negative); Color,Urine Colorless; Glucose,Urine (UA) 4+ (Negative); Ketones,Urine Negative (Negative); Leukocyte Esterase,Urine Negative (Negative); Nitrite,Urine Negative (Negative); Protein,Urine Negative (Negative); Specific Gravity,Urine 1.026 (1.001-1.035); Urobilinogen,Urine <2.0 mg/dL (<2.0)
[2017-08-17 03:37] LABS: Basophils % (A) 0 %; Eosinophils % (A) 0 %; HCT 42.6 % (34.0-46.0); HGB 13.4 gm/dL (11.4-16.0); Hypochromasia Slight; Lymphocytes # (A) 0.7 k/uL (1.0-4.8); Lymphocytes % (A) 19 %; MCH 29.2 pg (25.0-35.0); MCHC 31.4 g/dL (31.0-37.0); MCV 92.9 fL (80.0-100.0); Mean Platelet Volume 7.2; Monocytes # (A) 0.1 k/uL (0-1.0); Monocytes % (A) 2 %; Neutrophils % (A) 78 %; Platelet Count 135 k/uL (150-450); RBC 4.58 m/uL (3.80-5.40); WBC 3.9 k/uL (3.8-10.6)
[2017-08-17 03:42] LABS: ALT 32 U/L (9-52); Albumin 4.8 g/dL (3.5-5.0); Alkaline Phosphatase 130 U/L (38-126); Amylase 84 U/L (30-110); Anion Gap 27 mmol/L; Blood Urea Nitrogen 13 mg/dL (7-17); Calcium 9.9 mg/dL (8.4-10.2); Carbon Dioxide 12 mmol/L (22-30); Chloride 97 mmol/L (98-107); Lipase 71 U/L (23-300); Potassium 4.9 mmol/L (3.5-5.1); Sodium 136 mmol/L (137-145); Total Bilirubin 0.7 mg/dL (0.2-1.3)
[2017-08-17 03:48] LABS: AST 41 U/L (14-36)
[2017-08-17] MEDS ORDERED: INSULIN ASPART 100 UNIT/ML 1 ML 10 ML VIAL SQ ONE (03:54)
[2017-08-17 03:55] LABS: Glucose 876 mg/dL (74-99)
[2017-08-17] MEDS ORDERED: NALOXONE 0.4 MG/ML 1 ML VIAL IV PRN (04:43)
[2017-08-17] MEDS ORDERED: ONDANSETRON 4 MG/2 ML VIAL IVP PRN (04:43)
[2017-08-17] MEDS: INSULIN REGULAR 100 UNIT in SODIUM CHLORIDE 0.9% 100 ML IV SCH ×5 (05:06→21:15)
[2017-08-17] MEDS: SODIUM CHLORIDE 0.9% 1,000 ML IV SCH ×3 (05:14→13:59)
[2017-08-17 05:15] LABS: Glucose,Whole Blood >600 mg/dL (75-99)
--- NOTE | 2017-08-17 05:23 | XR ---
EXAM: XR Abdomen CLINICAL HISTORY: ITS.REASON XR Reason: pain TECHNIQUE: Frontal upright views of the abdomen/pelvis. COMPARISON: 07/02/17. FINDINGS: Intraperitoneal space: No free air under the diaphragms. Gastrointestinal tract: Several mildly prominent bowel loops with scattered air-fluid levels. Organs: Large opacity in the left upper quadrant may represent distended stomach, splenomegaly, or other etiology. Cholecystectomy clips. Bones/joints: Unremarkable. IMPRESSION: 1. Large opacity in the left upper quadrant may represent distended stomach, splenomegaly, or other etiology. 2. Several mildly prominent bowel loops with scattered air-fluid levels. Findings may represent enteritis, ileus, or developing obstruction.
[2017-08-17 05:52] LABS: Glucose,Whole Blood 543 mg/dL (75-99)
[2017-08-17 07:04] LABS: Glucose,Whole Blood 447 mg/dL (75-99)
[2017-08-17 07:43] LABS: Anion Gap 22 mmol/L; Blood Urea Nitrogen 10 mg/dL (7-17); Carbon Dioxide 15 mmol/L (22-30); Chloride 105 mmol/L (98-107); Glucose 426 mg/dL (74-99); Potassium 3.2 mmol/L (3.5-5.1); Sodium 142 mmol/L (137-145)
[2017-08-17 07:59] LABS: Glucose,Whole Blood 387 mg/dL (75-99)
[2017-08-17] MEDS: MORPHINE SULFATE 4 MG/ML SYRINGE IV PRN ×4 (08:06→22:22)
[2017-08-17 09:03] LABS: Glucose,Whole Blood 311 mg/dL (75-99)
[2017-08-17 10:53] LABS: Glucose,Whole Blood 188 mg/dL (75-99)
[2017-08-17] MEDS ORDERED: DICYCLOMINE 10 MG CAP PO PRN (12:06)
[2017-08-17] MEDS ORDERED: HYDROmorphone 2 MG TAB PO PRN (12:06)
[2017-08-17] MEDS ORDERED: PROCHLORPERAZINE 10 MG TAB PO PRN (12:17)
[2017-08-17 12:19] LABS: Glucose,Whole Blood 158 mg/dL (75-99)
[2017-08-17] MEDS ORDERED: [UNRECOGNIZED DRUG - OTHER] PO SCH (12:30)
[2017-08-17 12:46] LABS: Anion Gap 18 mmol/L; Blood Urea Nitrogen 7 mg/dL (7-17); Calcium 8.9 mg/dL (8.4-10.2); Carbon Dioxide 19 mmol/L (22-30); Chloride 107 mmol/L (98-107); Glucose 158 mg/dL (74-99); Phosphorus 2.7 mg/dL (2.5-4.5); Potassium 3.5 mmol/L (3.5-5.1); Sodium 144 mmol/L (137-145)
--- NOTE | 2017-08-17 13:02 | P.HPIM ---
History of Present Illness H&P Date: 08/17/17 This is a 52-year-old female patient of Dr. Borges with previous medical history significant for familial dyslipidemia, recurrent pancreatitis and chroni abdominal pain, thought to be due to hypertriglyceridemia, hypertension and hypertensive cardiovascular disease, diabetes mellitus type 2 with recurrent diabetic ketoacidosis as well as episodes of hyperosmolar nonketotic hyperglycemia, hypertensive cardiovascular disease, chronic pain syndrome, gastroparesis, gastroesophageal reflux disease, diabetic polyneuropathy. patient states she developed diarrhea with cramping and gas at home. She only took half of her insulin and her blood sugars went high. She questioned whether she should be on Mylanta at home. She presented to [facility] emergency center with complaints of abdominal pain and hyperglycemia. Pain is in the mid abdomen. She denies fever or chills. No shortness of breath or chest pain. A shunt is afebrile, vital signs are stable , blood sugar is 876 and lactic acid greater than 10. Patient was given 2 L of IV fluids. Acetone was positive, urinalysis was 4+ glucose. Alkaline phosphatase 1:30. Amylase and lipase were within normal limits. Anion gap 22 KUB showed a large obesity in the left upper quadrant may represent distended stomach, splenomegaly or other etiology. Several mildly prominent bowel loops with scattered air-fluid levels. Findings may represent enteritis, ileus or developing obstruction. Patient was started on insulin drip, morphine IV for pain control, Zofran for nausea and patient was admitted to the selective care unit. Review of Systems All systems: negative Constitutional: Denies chills, Denies fever Eyes: denies blurred vision, denies pain Ears, nose, mouth and throat: Denies headache, Denies sore throat Cardiovascular: Denies chest pain, Denies shortness of breath Respiratory: Denies cough Gastrointestinal: Reports abdominal pain, Reports diarrhea, Denies nausea, Denies vomiting Genitourinary: Denies dysuria, Denies hematuria Musculoskeletal: Denies myalgias Integumentary: Denies pruritus, Denies rash Neurological: Denies numbness, Denies weakness Psychiatric: Denies anxiety, Denies depression Endocrine: Reports high blood sugars, Denies fatigue, Denies weight change Past Medical History Past Medical History: Coronary Artery Disease (CAD), Diabetes Mellitus, GERD/ Reflux, Hyperlipidemia, Hypertension, Syncope Additional Past Medical History / Comment(s): IDDM type II, recurrent DKA, episodes of hyperosmolar nonketonic hyperglycemia, hypertensive heart disease, chronic pain syndrome, hypertriglyceridemia, chronic pancreatitis, chronic abdominal pain, gastroparesis, severe GERD, diabetic polyneuropathy mostly in hands and alittle in feet bilaterally, infectious colitis. History of Any Multi-Drug Resistant Organisms: C-DIFF Date of last positivie culture/infection: pt. unsure MDRO Source:: stool Past Surgical History: Cholecystectomy Additional Past Surgical History / Comment(s): Biliary stent through an ERCP that was performed at [facility] and stent removed 2007, lap jenn, colonoscopy, ERCP. Past Anesthesia/Blood Transfusion Reactions: No Reported Reaction Additional Past Anesthesia/Blood Transfusion Reaction / Comment(s): Pt has never received blood."CLAUSTERPHOBIA" Past Psychological History: Anxiety, Depression, Panic Disorder, PTSD Smoking Status: Never smoker Past Alcohol Use History: Rare Additional Past Alcohol Use History / Comment(s): patient lives at home with her daughter, son-in-law and 2 grandchildren. She is independent. She is currently on disability. She drives a car limited amount. She has anxiety and occasional anxiety or panic attacks. She sees Dr. Fink at [facility]. Her daughter and father help her out. She has a rescue dog. Past Drug Use History: None Reported - Past Family History Sister(s) Additional Family Medical History / Comment(s): Patient has 2 sisters with no major medical problems. Daughter(s) Additional Family Medical History / Comment(s): Patient has 2 daughters and one had mitral valve replacement. Son(s) Additional Family Medical History / Comment(s): She has one son with no major medical problems. Brother(s) Additional Family Medical History / Comment(s): Does not have any brothers. Father Family Medical History: No Reported History Additional Family Medical History / Comment(s): Father is 79 years of age with severe anxiety and was hospitalized for this at times. Mother Family Medical History: Cancer Additional Family Medical History / Comment(s): Mother of metastatic breast CA at the age of 42yrs. pt. states her grandmother had diabetes as well Medications and Allergies Home Medications Medication Instructions Recorded Confirmed Type Lisinopril [Zestril] 20 mg PO DAILY 09/09/13 08/17/17 History Gabapentin [Neurontin] 200 mg PO BID cap 08/09/14 08/17/17 Rx Metoclopramide [Reglan] 5 mg PO ACHS tab 08/09/14 08/17/17 Rx Prochlorperazine [Compazine] 10 mg PO TID PRN #0 tab 08/09/14 08/17/17 Rx Sertraline [Zoloft] 200 mg PO DAILY tab 08/09/14 08/17/17 Rx HYDROmorphone [Dilaudid] 2 mg PO Q8H PRN 09/17/14 08/17/17 History Multivitamins, Thera [Multivitamin 1 tab PO DAILY 09/17/14 08/17/17 History (formulary)] Atenolol [Tenormin] 100 mg PO DAILY 11/19/14 08/17/17 History Calcium Carb-Vit D 500Mg-200Un 1 tab PO BID 11/19/14 08/17/17 History [Oscal 500+D] Mirtazapine [Remeron] 45 mg PO HS 11/19/14 08/17/17 History Rosuvastatin Calcium [Crestor] 40 mg PO HS 11/19/14 08/17/17 History fentaNYL 25MCG/HR PATCH [Duragesic 1 patch TRANSDERM Q72H #0 07/10/15 08/17/17 Rx 25MCG/HR] Insulin Aspart [NovoLOG Flexpen] 26 unit SQ AC-BRKFST 10/14/15 08/17/17 History Insulin Aspart [NovoLOG Flexpen] 26 unit SQ AC-LUNCH 10/14/15 08/17/17 History Insulin Aspart [NovoLOG Flexpen] 36 units SQ AC-SUPPER 10/14/15 08/17/17 History Pancreatic Enzymes Otc(Unknown) 1 cap PO AC-TID 10/14/15 08/17/17 History Cetirizine HCl [Zyrtec] 10 mg PO DAILY 02/04/16 08/17/17 History Niacin 1,000 mg PO HS 02/04/16 08/17/17 History clonazePAM [KlonoPIN] 2 mg PO HS 02/04/16 08/17/17 History Dicyclomine [Bentyl] 10 mg PO TID PRN #90 cap 03/22/16 08/17/17 Rx Famotidine [Pepcid] 20 mg PO BID #0 03/22/16 08/17/17 Rx Insulin Detemir [Levemir] 66 unit SQ HS 07/21/16 08/17/17 History clonazePAM [KlonoPIN] 1 mg PO QAM 07/21/16 08/17/17 History Mag Hydrox/Al Hydrox/Simeth 30 ml PO QID PRN 05/04/17 08/17/17 History [Maalox] Gemfibrozil [Lopid] 600 mg PO AC-BID 07/02/17 08/17/17 History Azithromycin [Zithromax Z-pack] See Taper PO DAILY 08/17/17 08/17/17 History methylPREDNISolone Dose Pack See Taper PO DIRECTED 08/17/17 08/17/17 History [Medrol Dose Pack] Allergies Allergy/AdvReac Type Severity Reaction Status Date / Time NSAIDS (Non-Steroidal Allergy Rash/Hives Verified 08/17/17 07:41 Anti-Inflamma Physical Exam Vitals: Vital Signs Temp Pulse Resp BP Pulse Ox 08/17/17 08:08 107 H 20 143/86 95 08/17/17 07:38 107 H 20 127/61 95 08/17/17 07:02 97.0 F L 98 18 130/80 98 08/17/17 02:12 97.9 F 109 H 18 137/90 98 Intake and Output 08/16/17 08/17/17 08/17/17 22:59 06:59 14:59 Intake Total 13.418 10.08 Balance 13.418 10.08 Intake: Intake, IV Titration 13.418 10.08 Amount Insulin Regular 100 unit 13.418 10.08 In Sodium Chloride 0.9% 100 ml @ 0.1 UNITS/KG/HR 6.64 mls/hr IV .[id number] [facility] Rx#:[id number] Other: Weight 65.771 kg General appearance: average body habitus, no distress - EENT Eyes: anicteric sclerae, EOMI, PERRLA, no ptosis, no scleral icterus, normal appearance ENT: hearing grossly normal, NA/AT, normal oropharynx, no thrush Ears: bilateral: normal - Neck Neck: no lymphadenopathy, normal ROM, no rigidity, no stridor, no thyromegaly Carotids: bilateral: upstroke normal Thyroid: bilateral: normal size - Respiratory Respiratory: bilateral: diminished, negative: dullness, rales, rhonchi, wheezing , prolonged expiration, prolonged inspiration - Cardiovascular Rhythm: regular Heart sounds: normal: S1, S2 Abnormal Heart Sounds: no systolic murmur, no S3 Gallop, no S4 Gallop, no click - Gastrointestinal General gastrointestinal: normal bowel sounds, soft, no splenomegaly, no tenderness, no umbilical hernia, no ventral hernia - Integumentary Integumentary: normal, normal turgor - Neurologic Neurologic: CNII-XII intact - Musculoskeletal Musculoskeletal: generalized weakness, strength equal bilaterally - Psychiatric Psychiatric: A&O x's 3, appropriate affect, intact judgment & insight Results CBC & Chem 7: 08/17/17 03:27 08/17/17 12:07 Labs: Abnormal Lab Results - Last 24 Hours (Table) 08/17/17 08/17/17 08/17/17 Range/Units 03:02 03:19 03:27 Plt Count 135 L (150-450) k/uL Lymphocytes # 0.7 L (1.0-4.8) k/uL Sodium 136 L (137-145) mmol/L Potassium (3.5-5.1) mmol/L Chloride 97 L (98-107) mmol/L Carbon Dioxide 12 L (22-30) mmol/L Glucose 876 H* (74-99) mg/dL POC Glucose (mg/dL) (75-99) mg/dL Plasma Lactic Acid Dawit (0.7-2.0) mmol/L AST 41 H (14-36) U/L Alkaline Phosphatase 130 H (38-126) U/L Urine Glucose (UA) 4+ H (Negative) 08/17/17 08/17/17 08/17/17 Range/Units 03:27 05:06 05:48 Plt Count (150-450) k/uL Lymphocytes # (1.0-4.8) k/uL Sodium (137-145) mmol/L Potassium (3.5-5.1) mmol/L Chloride (98-107) mmol/L Carbon Dioxide (22-30) mmol/L Glucose (74-99) mg/dL POC Glucose (mg/dL) >600 H 543 H (75-99) mg/dL Plasma Lactic Acid Dawit 10.6 H* (0.7-2.0) mmol/L AST (14-36) U/L Alkaline Phosphatase (38-126) U/L Urine Glucose (UA) (Negative) 08/17/17 08/17/17 08/17/17 Range/Units 06:57 07:12 07:12 Plt Count (150-450) k/uL Lymphocytes # (1.0-4.8) k/uL Sodium (137-145) mmol/L Potassium 3.2 L (3.5-5.1) mmol/L Chloride (98-107) mmol/L Carbon Dioxide 15 L (22-30) mmol/L Glucose 426 H (74-99) mg/dL POC Glucose (mg/dL) 447 H (75-99) mg/dL Plasma Lactic Acid Dawit 9.1 H* (0.7-2.0) mmol/L AST (14-36) U/L Alkaline Phosphatase (38-126) U/L Urine Glucose (UA) (Negative) 08/17/17 08/17/17 Range/Units 07:57 08:59 Plt Count (150-450) k/uL Lymphocytes # (1.0-4.8) k/uL Sodium (137-145) mmol/L Potassium (3.5-5.1) mmol/L Chloride (98-107) mmol/L Carbon Dioxide (22-30) mmol/L Glucose (74-99) mg/dL POC Glucose (mg/dL) 387 H 311 H (75-99) mg/dL Plasma Lactic Acid Dawit (0.7-2.0) mmol/L AST (14-36) U/L Alkaline Phosphatase (38-126) U/L Urine Glucose (UA) (Negative) Thrombosis Risk Factor Assmnt - DVT/VTE Prophylaxis DVT/VTE Prophylaxis: Pharmacologic Prophylaxis ordered Assessment and Plan Plan: 1. DKA. IV fluid, insulin drip per protocol. Patient will be transition to Levemir 66 units at bedtime along with her scheduled NovoLog and scale, continue clear liquid diet. Clear liquid diet . 2. History of diabetes mellitus type 2, insulin requiring we will transition the patient back to Levemir 66 units at bedtime along with Humalog. 3. Hypertension and hypertensive cardiovascular disease with left ventricular hypertrophy we will continue the patient on atenolol 100 mg orally once every day as well as lisinopril 20 mg orally once every day. 4. Hyperlipidemia continue the patient on Crestor 40 mg orally once every day, fenofibrate 160 mg orally once every day,Niaspan 1000 g orally once every. 5. Diabetic polyneuropathy continue gabapentin 200 mg orally twice every day. 6. Anxiety generalized disorder. Continue Klonopin 2 milligram in the evening and 1 mg in the morning. 7. Depression, recurrent. Continue Zoloft 200 mg orally once every day. 8. Gastroparesis continue Reglan 5 mg before each meal 3 times every day. 9. Chronic pancreatitis continue IV fluid resuscitation as well as current pain management in the form of Dilaudid along with fentanyl patch. 10. GERD continue PPI. 11. DVT. Continue heparin 5000 units subcutaneously every 12 hours. 12. Acute lactic acidosis. 13. Full code. 14. Admit to inpatient. Estimated length of stay 2 midnights . Discharge plan: Return home Impression and plan of care have been directed as dictated by the signing physician. Amanda Kumar nurse practitioner acting as scribe for signing physician.
[2017-08-17] MEDS: ATENOLOL 50 MG TAB PO SCH (13:36)
[2017-08-17] MEDS: POTASSIUM CHLORIDE ER 20 MEQ TAB.ER PO SCH ×2 (13:37→15:31)
[2017-08-17] MEDS: FAMOTIDINE 20 MG TAB PO SCH ×2 (13:37→21:04)
[2017-08-17] MEDS: METOCLOPRAMIDE 5 MG TAB PO SCH ×3 (13:38→21:04)
[2017-08-17] MEDS: LISINOPRIL 20 MG TAB PO SCH (13:38)
[2017-08-17] MEDS: SERTRALINE 100 MG TAB PO SCH (13:38)
[2017-08-17] MEDS: GABAPENTIN 100 MG CAP PO SCH ×2 (13:39→21:04)
[2017-08-17 13:56] LABS: Glucose,Whole Blood 114 mg/dL (75-99)
[2017-08-17] MEDS: clonazePAM 1 MG TAB PO SCH ×2 (13:56→21:04)
[2017-08-17 15:31] LABS: Glucose,Whole Blood 82 mg/dL (75-99)
[2017-08-17] MEDS: GEMFIBROZIL 600 MG TAB PO SCH (17:04)
[2017-08-17 17:09] LABS: Glucose,Whole Blood 138 mg/dL (75-99)
[2017-08-17 17:10] LABS: Anion Gap 14 mmol/L; Blood Urea Nitrogen 7 mg/dL (7-17); Calcium 8.7 mg/dL (8.4-10.2); Carbon Dioxide 20 mmol/L (22-30); Chloride 111 mmol/L (98-107); Glucose 83 mg/dL (74-99); Potassium 3.3 mmol/L (3.5-5.1); Sodium 145 mmol/L (137-145)
[2017-08-17 18:13] LABS: Glucose,Whole Blood 123 mg/dL (75-99)
[2017-08-17 19:23] LABS: Glucose,Whole Blood 192 mg/dL (75-99)
[2017-08-17 20:03] LABS: Anion Gap 21 mmol/L; Blood Urea Nitrogen 8 mg/dL (7-17); Calcium 8.6 mg/dL (8.4-10.2); Carbon Dioxide 11 mmol/L (22-30); Chloride 111 mmol/L (98-107); Glucose 175 mg/dL (74-99); Potassium 4.2 mmol/L (3.5-5.1); Sodium 143 mmol/L (137-145)
[2017-08-17 20:16] LABS: Glucose,Whole Blood 186 mg/dL (75-99)
[2017-08-17] MEDS ORDERED: INSULIN DETEMIR 100 UNIT/ML 10 ML VIAL SQ SCH (21:00)
[2017-08-17] MEDS ORDERED: NIACIN 1000 MG PO SCH (21:00)
[2017-08-17] MEDS: ATORVASTATIN 80 MG TAB PO SCH (21:03)
[2017-08-17] MEDS: CALCIUM CARB-VIT D 500MG-200UN 1 EACH TAB PO SCH (21:03)
[2017-08-17 21:21] LABS: Glucose,Whole Blood 176 mg/dL (75-99)
[2017-08-17 22:21] LABS: Glucose,Whole Blood 242 mg/dL (75-99)
[2017-08-17] MEDS: MIRTAZAPINE 45 MG TABLET PO SCH (22:21)
[2017-08-17 23:31] LABS: Glucose,Whole Blood 185 mg/dL (75-99)
[2017-08-18 00:28] LABS: Glucose,Whole Blood 150 mg/dL (75-99)
[2017-08-18 01:26] LABS: Glucose,Whole Blood 151 mg/dL (75-99)
[2017-08-18 01:39] LABS: Anion Gap 14 mmol/L; Blood Urea Nitrogen 8 mg/dL (7-17); Calcium 8.3 mg/dL (8.4-10.2); Carbon Dioxide 20 mmol/L (22-30); Chloride 109 mmol/L (98-107); Glucose 131 mg/dL (74-99); Potassium 3.2 mmol/L (3.5-5.1); Sodium 143 mmol/L (137-145)
[2017-08-18] MEDS ORDERED: DEXTROSE 5%-0.45% NACL 1,000 ML with POTASSIUM CHLORIDE 20 MEQ IV SCH ×2 (02:00)
[2017-08-18 02:20] LABS: Glucose,Whole Blood 127 mg/dL (75-99)
[2017-08-18 03:28] LABS: Glucose,Whole Blood 164 mg/dL (75-99)
[2017-08-18] MEDS: SODIUM CHLORIDE 0.9% 1,000 ML IV SCH ×4 (04:01→08:16)
[2017-08-18 04:14] LABS: Glucose,Whole Blood 149 mg/dL (75-99)
[2017-08-18 05:32] LABS: Glucose,Whole Blood 187 mg/dL (75-99)
[2017-08-18] MEDS: MORPHINE SULFATE 4 MG/ML SYRINGE IV PRN (05:55)
[2017-08-18 06:33] LABS: Glucose,Whole Blood 196 mg/dL (75-99)
[2017-08-18] MEDS: GEMFIBROZIL 600 MG TAB PO SCH ×2 (06:35→17:25)
[2017-08-18] MEDS: METOCLOPRAMIDE 5 MG TAB PO SCH ×4 (06:35→19:56)
[2017-08-18 07:16] LABS: Glucose,Whole Blood 216 mg/dL (75-99)
[2017-08-18 07:18] LABS: Basophils % (A) 0 %; Eosinophils # (A) 0.1 k/uL (0-0.7); Eosinophils % (A) 1 %; HCT 35.9 % (34.0-46.0); HGB 12.2 gm/dL (11.4-16.0); Lymphocytes # (A) 3.3 k/uL (1.0-4.8); Lymphocytes % (A) 46 %; MCH 30.1 pg (25.0-35.0); MCHC 33.8 g/dL (31.0-37.0); MCV 88.9 fL (80.0-100.0); Mean Platelet Volume 6.7; Monocytes # (A) 0.3 k/uL (0-1.0); Monocytes % (A) 4 %; Neutrophils # (A) 3.3 k/uL (1.3-7.7); Neutrophils % (A) 47 %; Platelet Count 137 k/uL (150-450); RBC 4.04 m/uL (3.80-5.40); RDW 13.1 % (11.5-15.5); WBC 7.1 k/uL (3.8-10.6)
[2017-08-18] MEDS ORDERED: INSULIN ASPART SQ SCH ×2 (07:30→12:30)
[2017-08-18 07:32] LABS: ALT 90 U/L (9-52); AST 99 U/L (14-36); Albumin 3.3 g/dL (3.5-5.0); Alkaline Phosphatase 91 U/L (38-126); Anion Gap 13 mmol/L; Blood Urea Nitrogen 8 mg/dL (7-17); Calcium 8.3 mg/dL (8.4-10.2); Carbon Dioxide 19 mmol/L (22-30); Chloride 110 mmol/L (98-107); Glucose 187 mg/dL (74-99); Potassium 3.5 mmol/L (3.5-5.1); Sodium 142 mmol/L (137-145); Total Bilirubin 0.6 mg/dL (0.2-1.3); Total Protein 5.2 g/dL (6.3-8.2)
[2017-08-18] MEDS: FAMOTIDINE 20 MG TAB PO SCH ×2 (08:17→19:56)
[2017-08-18] MEDS: LORATADINE 10 MG TAB PO SCH (08:17)
[2017-08-18] MEDS: GABAPENTIN 100 MG CAP PO SCH ×2 (08:17→19:56)
[2017-08-18] MEDS: CALCIUM CARB-VIT D 500MG-200UN 1 EACH TAB PO SCH ×2 (08:17→19:56)
[2017-08-18] MEDS: clonazePAM 1 MG TAB PO SCH ×2 (08:17→19:56)
[2017-08-18] MEDS: SERTRALINE 100 MG TAB PO SCH (08:17)
[2017-08-18] MEDS: ATENOLOL 50 MG TAB PO SCH (08:17)
[2017-08-18] MEDS: LISINOPRIL 20 MG TAB PO SCH (08:17)
[2017-08-18 08:18] LABS: Glucose,Whole Blood 298 mg/dL (75-99)
[2017-08-18] MEDS ORDERED: D5-0.45% NACL WITH KCL 20MEQ/L 1,000 ML IV SCH (08:30)
[2017-08-18 09:19] LABS: Glucose,Whole Blood 322 mg/dL (75-99)
[2017-08-18 10:19] LABS: Glucose,Whole Blood 343 mg/dL (75-99)
[2017-08-18 10:52] VITALS: BMI 26.2
[2017-08-18 11:16] LABS: Glucose,Whole Blood 268 mg/dL (75-99)
[2017-08-18] MEDS: MULTIVITAMINS, THERA 1 EACH TAB PO SCH (12:01)
[2017-08-18 12:14] LABS: Glucose,Whole Blood 238 mg/dL (75-99)
[2017-08-18] MEDS: MORPHINE ORAL SOLN 10 MG/5 ML CUP PO PRN ×2 (12:58→17:25)
--- NOTE | 2017-08-18 13:09 | P.PN ---
Subjective Progress Note Date: 08/18/17 This is a 52-year-old female patient of Dr. Borges with previous medical history significant for familial dyslipidemia, recurrent pancreatitis and chroni abdominal pain, thought to be due to hypertriglyceridemia, hypertension and hypertensive cardiovascular disease, diabetes mellitus type 2 with recurrent diabetic ketoacidosis as well as episodes of hyperosmolar nonketotic hyperglycemia, hypertensive cardiovascular disease, chronic pain syndrome, gastroparesis, gastroesophageal reflux disease, diabetic polyneuropathy. patient states she developed diarrhea with cramping and gas at home. She only took half of her insulin and her blood sugars went high. She questioned whether she should be on Mylanta at home. She presented to [facility] emergency center with complaints of abdominal pain and hyperglycemia. Pain is in the mid abdomen. She denies fever or chills. No shortness of breath or chest pain. A shunt is afebrile, vital signs are stable , blood sugar is 876 and lactic acid greater than 10. Patient was given 2 L of IV fluids. Acetone was positive, urinalysis was 4+ glucose. Alkaline phosphatase 1:30. Amylase and lipase were within normal limits. Anion gap 22 KUB showed a large obesity in the left upper quadrant may represent distended stomach, splenomegaly or other etiology. Several mildly prominent bowel loops with scattered air-fluid levels. Findings may represent enteritis, ileus or developing obstruction. Patient was started on insulin drip, morphine IV for pain control, Zofran for nausea and patient was admitted to the selective care unit. 5: There was confusion over patients insulins and her Levemir and scheduled humalog were accidentally discontinued. Patient remains on insulin drip and will plan to transition to home meds tonight. Diet is to be advanced. Anticipate discharge tomorrow. Objective - Vital Signs Vital signs: Vital Signs Temp 97.6 F 08/18/17 11:38 Pulse 61 08/18/17 11:38 Resp 12 08/18/17 11:38 BP 84/47 08/18/17 11:38 Pulse Ox 97 08/18/17 11:38 Intake & Output 08/17/17 08/18/17 08/18/17 18:59 06:59 18:59 Intake Total 84.312 3919.432 9545.324 Balance 84.312 4569.685 5780.324 Weight 69.4 kg 69.4 kg Intake: IV 1800 Sodium Chloride 0.9% 1, 1800 000 ml @ 200 mls/hr IV . Q5H [facility] Rx#:[id number] Intake, IV Titration 84.312 7.863 1212.324 Amount Dextrose 5%-0.45% NaCl 1, 1200 000 ml @ 150 mls/hr IV . [id number] [facility] with Potassium Chloride 20 meq Rx#: [id number] Insulin Regular 100 unit 84.312 7.863 12.324 In Sodium Chloride 0.9% 100 ml @ 0.1 UNITS/KG/HR 6.64 mls/hr IV .[id number] [facility] Rx#:[id number] Oral 360 - Exam General appearance: average body habitus, no distress - EENT Eyes: anicteric sclerae, EOMI, PERRLA, no ptosis, no scleral icterus, normal appearance ENT: hearing grossly normal, NA/AT, normal oropharynx, no thrush Ears: bilateral: normal - Neck Neck: no lymphadenopathy, normal ROM, no rigidity, no stridor, no thyromegaly Carotids: bilateral: upstroke normal Thyroid: bilateral: normal size - Respiratory Respiratory: bilateral: diminished, negative: dullness, rales, rhonchi, wheezing , prolonged expiration, prolonged inspiration - Cardiovascular Rhythm: regular Heart sounds: normal: S1, S2 Abnormal Heart Sounds: no systolic murmur, no S3 Gallop, no S4 Gallop, no click - Gastrointestinal General gastrointestinal: normal bowel sounds, soft, no splenomegaly, no tenderness, no umbilical hernia, no ventral hernia - Integumentary Integumentary: normal, normal turgor - Neurologic Neurologic: CNII-XII intact - Musculoskeletal Musculoskeletal: generalized weakness, strength equal bilaterally - Psychiatric Psychiatric: A&O x's 3, appropriate affect, intact judgment & insight - Labs CBC & Chem 7: 08/18/17 06:41 08/18/17 06:41 Labs: Abnormal Lab Results - Last 24 Hours (Table) 08/17/17 08/17/17 08/17/17 Range/Units 12:07 12:41 13:54 Plt Count (150-450) k/uL Potassium (3.5-5.1) mmol/L Chloride (98-107) mmol/L Carbon Dioxide 19 L (22-30) mmol/L Creatinine 0.44 L (0.52-1.04) mg/dL Glucose 158 H (74-99) mg/dL POC Glucose (mg/dL) 114 H (75-99) mg/dL Plasma Lactic Acid Dawit 3.2 H* (0.7-2.0) mmol/L Calcium (8.4-10.2) mg/dL AST (14-36) U/L ALT (9-52) U/L Total Protein (6.3-8.2) g/dL Albumin (3.5-5.0) g/dL 08/17/17 08/17/17 08/17/17 Range/Units 15:49 17:07 18:10 Plt Count (150-450) k/uL Potassium 3.3 L (3.5-5.1) mmol/L Chloride 111 H (98-107) mmol/L Carbon Dioxide 20 L (22-30) mmol/L Creatinine 0.50 L (0.52-1.04) mg/dL Glucose (74-99) mg/dL POC Glucose (mg/dL) 138 H 123 H (75-99) mg/dL Plasma Lactic Acid Dawit (0.7-2.0) mmol/L Calcium (8.4-10.2) mg/dL AST (14-36) U/L ALT (9-52) U/L Total Protein (6.3-8.2) g/dL Albumin (3.5-5.0) g/dL 08/17/17 08/17/17 08/17/17 Range/Units 19:21 19:36 20:14 Plt Count (150-450) k/uL Potassium (3.5-5.1) mmol/L Chloride 111 H (98-107) mmol/L Carbon Dioxide 11 L (22-30) mmol/L Creatinine (0.52-1.04) mg/dL Glucose 175 H (74-99) mg/dL POC Glucose (mg/dL) 192 H 186 H (75-99) mg/dL Plasma Lactic Acid Dawit (0.7-2.0) mmol/L Calcium (8.4-10.2) mg/dL AST (14-36) U/L ALT (9-52) U/L Total Protein (6.3-8.2) g/dL Albumin (3.5-5.0) g/dL 08/17/17 08/17/17 08/17/17 Range/Units 21:20 22:20 23:30 Plt Count (150-450) k/uL Potassium (3.5-5.1) mmol/L Chloride (98-107) mmol/L Carbon Dioxide (22-30) mmol/L Creatinine (0.52-1.04) mg/dL Glucose (74-99) mg/dL POC Glucose (mg/dL) 176 H 242 H 185 H (75-99) mg/dL Plasma Lactic Acid Dawit (0.7-2.0) mmol/L Calcium (8.4-10.2) mg/dL AST (14-36) U/L ALT (9-52) U/L Total Protein (6.3-8.2) g/dL Albumin (3.5-5.0) g/dL 08/18/17 08/18/17 08/18/17 Range/Units 00:27 01:01 01:24 Plt Count (150-450) k/uL Potassium 3.2 L (3.5-5.1) mmol/L Chloride 109 H (98-107) mmol/L Carbon Dioxide 20 L (22-30) mmol/L Creatinine (0.52-1.04) mg/dL Glucose 131 H (74-99) mg/dL POC Glucose (mg/dL) 150 H 151 H (75-99) mg/dL Plasma Lactic Acid Dawit (0.7-2.0) mmol/L Calcium 8.3 L (8.4-10.2) mg/dL AST (14-36) U/L ALT (9-52) U/L Total Protein (6.3-8.2) g/dL Albumin (3.5-5.0) g/dL 08/18/17 08/18/17 08/18/17 Range/Units 02:18 03:26 04:13 Plt Count (150-450) k/uL Potassium (3.5-5.1) mmol/L Chloride (98-107) mmol/L Carbon Dioxide (22-30) mmol/L Creatinine (0.52-1.04) mg/dL Glucose (74-99) mg/dL POC Glucose (mg/dL) 127 H 164 H 149 H (75-99) mg/dL Plasma Lactic Acid Dawit (0.7-2.0) mmol/L Calcium (8.4-10.2) mg/dL AST (14-36) U/L ALT (9-52) U/L Total Protein (6.3-8.2) g/dL Albumin (3.5-5.0) g/dL 08/18/17 08/18/17 08/18/17 Range/Units 05:31 06:31 06:41 Plt Count 137 L (150-450) k/uL Potassium (3.5-5.1) mmol/L Chloride (98-107) mmol/L Carbon Dioxide (22-30) mmol/L Creatinine (0.52-1.04) mg/dL Glucose (74-99) mg/dL POC Glucose (mg/dL) 187 H 196 H (75-99) mg/dL Plasma Lactic Acid Dawit (0.7-2.0) mmol/L Calcium (8.4-10.2) mg/dL AST (14-36) U/L ALT (9-52) U/L Total Protein (6.3-8.2) g/dL Albumin (3.5-5.0) g/dL 08/18/17 08/18/17 08/18/17 Range/Units 06:41 07:14 08:15 Plt Count (150-450) k/uL Potassium (3.5-5.1) mmol/L Chloride 110 H (98-107) mmol/L Carbon Dioxide 19 L (22-30) mmol/L Creatinine (0.52-1.04) mg/dL Glucose 187 H (74-99) mg/dL POC Glucose (mg/dL) 216 H 298 H (75-99) mg/dL Plasma Lactic Acid Dawit (0.7-2.0) mmol/L Calcium 8.3 L (8.4-10.2) mg/dL AST 99 H (14-36) U/L ALT 90 H (9-52) U/L Total Protein 5.2 L (6.3-8.2) g/dL Albumin 3.3 L (3.5-5.0) g/dL 08/18/17 08/18/17 08/18/17 Range/Units 09:18 10:17 11:14 Plt Count (150-450) k/uL Potassium (3.5-5.1) mmol/L Chloride (98-107) mmol/L Carbon Dioxide (22-30) mmol/L Creatinine (0.52-1.04) mg/dL Glucose (74-99) mg/dL POC Glucose (mg/dL) 322 H 343 H 268 H (75-99) mg/dL Plasma Lactic Acid Dawit (0.7-2.0) mmol/L Calcium (8.4-10.2) mg/dL AST (14-36) U/L ALT (9-52) U/L Total Protein (6.3-8.2) g/dL Albumin (3.5-5.0) g/dL 08/18/17 Range/Units 12:12 Plt Count (150-450) k/uL Potassium (3.5-5.1) mmol/L Chloride (98-107) mmol/L Carbon Dioxide (22-30) mmol/L Creatinine (0.52-1.04) mg/dL Glucose (74-99) mg/dL POC Glucose (mg/dL) 238 H (75-99) mg/dL Plasma Lactic Acid Dawit (0.7-2.0) mmol/L Calcium (8.4-10.2) mg/dL AST (14-36) U/L ALT (9-52) U/L Total Protein (6.3-8.2) g/dL Albumin (3.5-5.0) g/dL Assessment and Plan Plan: 1. DKA. IV fluid, insulin drip per protocol. Patient will be transition to Levemir 66 units at bedtime along with her scheduled NovoLog and scale, continue clear liquid diet. Consistent carb diet. 2. History of diabetes mellitus type 2, insulin requiring we will transition the patient back to Levemir 66 units at bedtime along with Humalog. 3. Hypertension and hypertensive cardiovascular disease with left ventricular hypertrophy we will continue the patient on atenolol 100 mg orally once every day as well as lisinopril 20 mg orally once every day. 4. Hyperlipidemia continue the patient on Crestor 40 mg orally once every day, fenofibrate 160 mg orally once every day,Niaspan 1000 g orally once every. 5. Diabetic polyneuropathy continue gabapentin 200 mg orally twice every day. 6. Anxiety generalized disorder. Continue Klonopin 2 milligram in the evening and 1 mg in the morning. 7. Depression, recurrent. Continue Zoloft 200 mg orally once every day. 8. Gastroparesis continue Reglan 5 mg before each meal 3 times every day. 9. Chronic pancreatitis continue IV fluid resuscitation as well as current pain management in the form of Dilaudid along with fentanyl patch. 10. GERD continue PPI. 11. DVT. Continue heparin 5000 units subcutaneously every 12 hours. 12. Acute lactic acidosis. 13. Full code. Discharge plan: Return home tomorrow Impression and plan of care have been directed as dictated by the signing physician. Amanda Kumar nurse practitioner acting as scribe for signing physician.
[2017-08-18 13:26] LABS: Glucose,Whole Blood 256 mg/dL (75-99)
[2017-08-18 13:58] LABS: Anion Gap 12 mmol/L; Blood Urea Nitrogen 7 mg/dL (7-17); Calcium 8.3 mg/dL (8.4-10.2); Carbon Dioxide 17 mmol/L (22-30); Chloride 111 mmol/L (98-107); Glucose 242 mg/dL (74-99); Potassium 3.4 mmol/L (3.5-5.1); Sodium 140 mmol/L (137-145)
[2017-08-18 14:30] LABS: Glucose,Whole Blood 195 mg/dL (75-99)
[2017-08-18 15:25] LABS: Glucose,Whole Blood 148 mg/dL (75-99)
[2017-08-18 16:19] LABS: Glucose,Whole Blood 118 mg/dL (75-99)
[2017-08-18 17:16] LABS: Glucose,Whole Blood 116 mg/dL (75-99)
[2017-08-18] MEDS ORDERED: INSULIN ASPART 36 UNIT SQ SCH (17:30)
[2017-08-18 18:14] LABS: Glucose,Whole Blood 111 mg/dL (75-99)
[2017-08-18 19:26] LABS: Glucose,Whole Blood 171 mg/dL (75-99)
[2017-08-18] MEDS: ATORVASTATIN 80 MG TAB PO SCH (19:56)
[2017-08-18] MEDS: MIRTAZAPINE 45 MG TABLET PO SCH (19:56)
[2017-08-18 20:51] LABS: Glucose,Whole Blood 185 mg/dL (75-99)
[2017-08-18] MEDS ORDERED: INSULIN DETEMIR 100 UNIT/ML 10 ML VIAL SQ SCH (21:00)
[2017-08-18 23:11] LABS: Anion Gap 11 mmol/L; Blood Urea Nitrogen 8 mg/dL (7-17); Calcium 8.5 mg/dL (8.4-10.2); Carbon Dioxide 23 mmol/L (22-30); Chloride 109 mmol/L (98-107); Glucose 195 mg/dL (74-99); Potassium 4.1 mmol/L (3.5-5.1); Sodium 143 mmol/L (137-145)
[2017-08-19 05:54] LABS: Glucose,Whole Blood 105 mg/dL (75-99)
[2017-08-19] MEDS: GEMFIBROZIL 600 MG TAB PO SCH (06:15)
[2017-08-19] MEDS: METOCLOPRAMIDE 5 MG TAB PO SCH ×2 (06:15→12:13)
[2017-08-19] MEDS: MORPHINE ORAL SOLN 10 MG/5 ML CUP PO PRN ×2 (06:15→11:17)
[2017-08-19] MEDS ORDERED: INSULIN ASPART 100 UNIT/ML 1 ML 10 ML VIAL SQ SCH ×3 (07:30→17:30)
[2017-08-19] MEDS: clonazePAM 1 MG TAB PO SCH (07:31)
[2017-08-19] MEDS: ATENOLOL 50 MG TAB PO SCH (07:31)
[2017-08-19] MEDS: CALCIUM CARB-VIT D 500MG-200UN 1 EACH TAB PO SCH (07:32)
[2017-08-19] MEDS: SERTRALINE 100 MG TAB PO SCH (07:32)
[2017-08-19] MEDS: FAMOTIDINE 20 MG TAB PO SCH (07:32)
[2017-08-19] MEDS: GABAPENTIN 100 MG CAP PO SCH (07:32)
[2017-08-19] MEDS: LISINOPRIL 20 MG TAB PO SCH (07:32)
[2017-08-19] MEDS: LORATADINE 10 MG TAB PO SCH (07:32)
[2017-08-19 07:47] VITALS: BP 95/49; PULSE 68; RESP 14; TEMP 98.4
--- NOTE | 2017-08-19 11:25 | P.DS ---
Providers Date of admission: 08/17/17 04:56 Expected date of discharge: 08/19/17 Attending physician: Mike Borges Primary care physician: Mike Borges [facility] Course: This is a 52-year-old female patient of Dr. Borges with previous medical history significant for familial dyslipidemia, recurrent pancreatitis and chroni abdominal pain, thought to be due to hypertriglyceridemia, hypertension and hypertensive cardiovascular disease, diabetes mellitus type 2 with recurrent diabetic ketoacidosis as well as episodes of hyperosmolar nonketotic hyperglycemia, hypertensive cardiovascular disease, chronic pain syndrome, gastroparesis, gastroesophageal reflux disease, diabetic polyneuropathy. patient states she developed diarrhea with cramping and gas at home. She only took half of her insulin and her blood sugars went high. She questioned whether she should be on Mylanta at home. She presented to [facility] emergency center with complaints of abdominal pain and hyperglycemia. Pain is in the mid abdomen. She denies fever or chills. No shortness of breath or chest pain. A shunt is afebrile, vital signs are stable , blood sugar is 876 and lactic acid greater than 10. Patient was given 2 L of IV fluids. Acetone was positive, urinalysis was 4+ glucose. Alkaline phosphatase 1:30. Amylase and lipase were within normal limits. Anion gap 22 KUB showed a large obesity in the left upper quadrant may represent distended stomach, splenomegaly or other etiology. Several mildly prominent bowel loops with scattered air-fluid levels. Findings may represent enteritis, ileus or developing obstruction. Patient was started on insulin drip, morphine IV for pain control, Zofran for nausea and patient was admitted to the selective care unit. 5: There was confusion over patients insulins and her Levemir and scheduled humalog were accidentally discontinued. Patient remains on insulin drip and will plan to transition to home meds tonight. Diet is to be advanced. Anticipate discharge tomorrow. 08/19: Patient's blood sugars are now running 105-185. Anion gap is 11. Patient is ambulating in the hallway without difficulty. She is complaining of abd pain. Patient on oral morphine in addition to home meds. Patient will be discharged home today in stable condition. Discharge diagnoses: 1. DKA. 2. History of diabetes mellitus type 2, insulin requiring 3. Hypertension and hypertensive cardiovascular disease with left ventricular hypertrophy 4. Hyperlipidemia 5. Diabetic polyneuropathy 6. Anxiety generalized disorder. 7. Depression, recurrent. 8. Gastroparesis 9. Chronic pancreatitis 10. GERD 11. Acute lactic acidosis. Discharge plan: Return home Impression and plan of care have been directed as dictated by the signing physician. Amanda Kumar nurse practitioner acting as scribe for signing physician. Patient Condition at Discharge: Good Plan - Discharge Summary Discharge Rx Participant: No New Discharge Prescriptions: Continue Lisinopril [Zestril] 20 mg PO DAILY Gabapentin [Neurontin] 200 mg PO BID cap Metoclopramide [Reglan] 5 mg PO ACHS tab Prochlorperazine [Compazine] 10 mg PO TID PRN #0 tab PRN Reason: Nausea Sertraline [Zoloft] 200 mg PO DAILY tab HYDROmorphone [Dilaudid] 2 mg PO Q8H PRN PRN Reason: Pain Multivitamins, Thera [Multivitamin (formulary)] 1 tab PO DAILY Calcium Carb-Vit D 500Mg-200Un [Oscal 500+D] 1 tab PO BID Atenolol [Tenormin] 100 mg PO DAILY Mirtazapine [Remeron] 45 mg PO HS Rosuvastatin Calcium [Crestor] 40 mg PO HS fentaNYL 25MCG/HR PATCH [Duragesic 25MCG/HR] 1 patch TRANSDERM Q72H #0 Insulin Aspart [NovoLOG Flexpen] 36 units SQ AC-SUPPER Insulin Aspart [NovoLOG Flexpen] 26 unit SQ AC-BRKFST Insulin Aspart [NovoLOG Flexpen] 26 unit SQ AC-LUNCH Pancreatic Enzymes Otc(Unknown) 1 cap PO AC-TID Cetirizine HCl [Zyrtec] 10 mg PO DAILY Niacin 1,000 mg PO HS clonazePAM [KlonoPIN] 2 mg PO HS Dicyclomine [Bentyl] 10 mg PO TID PRN #90 cap PRN Reason: Diarrhea Famotidine [Pepcid] 20 mg PO BID #0 Insulin Detemir [Levemir] 66 unit SQ HS clonazePAM [KlonoPIN] 1 mg PO QAM Mag Hydrox/Al Hydrox/Simeth [Maalox] 30 ml PO QID PRN PRN Reason: Constipation Gemfibrozil [Lopid] 600 mg PO AC-BID Discontinued methylPREDNISolone Dose Pack [Medrol Dose Pack] See Taper PO DIRECTED Azithromycin [Zithromax Z-pack] See Taper PO DAILY Discharge Medication List Lisinopril [Zestril] 20 mg PO DAILY 09/09/13 [History] Gabapentin [Neurontin] 200 mg PO BID cap 08/09/14 [Rx] Metoclopramide [Reglan] 5 mg PO ACHS tab 08/09/14 [Rx] Prochlorperazine [Compazine] 10 mg PO TID PRN #0 tab 08/09/14 [Rx] Sertraline [Zoloft] 200 mg PO DAILY tab 08/09/14 [Rx] HYDROmorphone [Dilaudid] 2 mg PO Q8H PRN 09/17/14 [History] Multivitamins, Thera [Multivitamin (formulary)] 1 tab PO DAILY 09/17/14 [History ] Atenolol [Tenormin] 100 mg PO DAILY 11/19/14 [History] Calcium Carb-Vit D 500Mg-200Un [Oscal 500+D] 1 tab PO BID 11/19/14 [History] Mirtazapine [Remeron] 45 mg PO HS 11/19/14 [History] Rosuvastatin Calcium [Crestor] 40 mg PO HS 11/19/14 [History] fentaNYL 25MCG/HR PATCH [Duragesic 25MCG/HR] 1 patch TRANSDERM Q72H #0 07/10/15 [Rx] Insulin Aspart [NovoLOG Flexpen] 26 unit SQ AC-BRKFST 10/14/15 [History] Insulin Aspart [NovoLOG Flexpen] 26 unit SQ AC-LUNCH 10/14/15 [History] Insulin Aspart [NovoLOG Flexpen] 36 units SQ AC-SUPPER 10/14/15 [History] Pancreatic Enzymes Otc(Unknown) 1 cap PO AC-TID 10/14/15 [History] Cetirizine HCl [Zyrtec] 10 mg PO DAILY 02/04/16 [History] Niacin 1,000 mg PO HS 02/04/16 [History] clonazePAM [KlonoPIN] 2 mg PO HS 02/04/16 [History] Dicyclomine [Bentyl] 10 mg PO TID PRN #90 cap 03/22/16 [Rx] Famotidine [Pepcid] 20 mg PO BID #0 03/22/16 [Rx] Insulin Detemir [Levemir] 66 unit SQ HS 07/21/16 [History] clonazePAM [KlonoPIN] 1 mg PO QAM 07/21/16 [History] Mag Hydrox/Al Hydrox/Simeth [Maalox] 30 ml PO QID PRN 05/04/17 [History] Gemfibrozil [Lopid] 600 mg PO AC-BID 07/02/17 [History] Follow up Appointment(s)/Referral(s): Mike Borges MD [Primary Care Provider] - 1 Week Discharge Disposition: HOME SELF-CARE
[2017-08-19 12:06] LABS: Glucose,Whole Blood 94 mg/dL (75-99)
[2017-08-19] MEDS: MULTIVITAMINS, THERA 1 EACH TAB PO SCH (12:13)
== END 2017-08-19 13:31 | disposition home or self-care (01) | DRG 638 ==
LOC: EC 02:01 → 6SEL 04:56
PROVIDERS: ADMIT Internal Medicine; ATTEND Internal Medicine
DX: E11.10 Type 2 diabetes mellitus with ketoacidosis without coma (principal); F33.9 Major depressive disorder, recurrent, unspecified; K86.1 Other chronic pancreatitis; A09 Infectious gastroenteritis and colitis, unspecified; E11.42 Type 2 diabetes mellitus with diabetic polyneuropathy; E11.43 Type 2 diabetes mellitus with diabetic autonomic (poly)neuropathy; E78.1 Pure hyperglyceridemia; E78.4 Other hyperlipidemia; F41.0 Panic disorder [episodic paroxysmal anxiety]; F41.1 Generalized anxiety disorder; F43.10 Post-traumatic stress disorder, unspecified; G89.4 Chronic pain syndrome; I11.9 Hypertensive heart disease without heart failure; I25.10 Atherosclerotic heart disease of native coronary artery without angina pectoris; K21.9 Gastro-esophageal reflux disease without esophagitis; K31.84 Gastroparesis; Z79.4 Long term (current) use of insulin; Z79.899 Other long term (current) drug therapy; Z80.3 Family history of malignant neoplasm of breast; Z83.3 Family history of diabetes mellitus; Z88.5 Allergy status to narcotic agent; F40.240 Claustrophobia; Z79.891 Long term (current) use of opiate analgesic
CPT/HCPCS: 36415; 74018; 80048; 80051; 80053; 81003; 82009; 82150; 82565; 82947; 83605; 83690; 84100; 84520; 85025; 96361; 96374; 96376; 99285

== ENCOUNTER 2017-10-12 02:01 | Inpatient (IN) | payer MEDICARE ==
[2017-10-12] MEDS ORDERED: SODIUM CHLORIDE 0.9% 1,000 ML IV STA (02:23)
--- NOTE | 2017-10-12 02:27 | ED ---
General Adult HPI - General Source: patient, RN notes reviewed Mode of arrival: ambulatory Limitations: no limitations <Zaire Johnson - Last Filed: 10/17/17 19:47> <Jerman Koo - Last Filed: 10/21/17 08:39> - General Chief complaint: Abdominal Pain Stated complaint: Hyperglycemia Time Seen by Provider: 10/12/17 02:18 - History of Present Illness Initial comments: Patient is a 52-year-old female presenting to the emergency room today with a chief complaint of symptoms of nausea vomiting and abdominal pain with diarrhea. Patient states that symptoms are similar to chronic pancreatitis that she's had in the past. Patient admits that symptoms increase again this afternoon. She states pain is located in the upper epigastric and left upper quadrants. Patient denies any signs of blood in the emesis or stool. Patient denies any other complaints currently. Patient denies any recent fever, chills, shortness of breath, chest pain, numbness or tingling, dysuria or hematuria, constipation, headaches or visual changes, or any other complaints. (Zaire Johnosn) - Related Data Home Medications Medication Instructions Recorded Confirmed Lisinopril [Zestril] 20 mg PO DAILY 09/09/13 10/12/17 HYDROmorphone [Dilaudid] 2 mg PO Q12H PRN 09/17/14 10/12/17 Multivitamins, Thera [Multivitamin 1 tab PO DAILY 09/17/14 10/12/17 (formulary)] Atenolol [Tenormin] 100 mg PO DAILY 11/19/14 10/12/17 Calcium Carb-Vit D 500Mg-200Un 1 tab PO BID 11/19/14 10/12/17 [Oscal 500+D] Mirtazapine [Remeron] 45 mg PO HS 11/19/14 10/12/17 Rosuvastatin Calcium [Crestor] 40 mg PO HS 11/19/14 10/12/17 Insulin Aspart [NovoLOG Flexpen] 26 unit SQ AC-BRKFST 10/14/15 10/12/17 Insulin Aspart [NovoLOG Flexpen] 26 unit SQ AC-LUNCH 10/14/15 10/12/17 Insulin Aspart [NovoLOG Flexpen] 36 units SQ AC-SUPPER 10/14/15 10/12/17 Pancreatic Enzymes Otc(Unknown) 1 cap PO AC-TID 10/14/15 10/12/17 Niacin 1,000 mg PO HS 02/04/16 10/12/17 Insulin Detemir [Levemir] 66 unit SQ HS 07/21/16 10/12/17 Gemfibrozil [Lopid] 600 mg PO AC-BID 07/02/17 10/12/17 Metoclopramide [Reglan] 5 mg PO QID 10/12/17 10/12/17 Previous Rx's Medication Instructions Recorded Gabapentin [Neurontin] 200 mg PO BID cap 08/09/14 Sertraline [Zoloft] 200 mg PO DAILY tab 08/09/14 fentaNYL 25MCG/HR PATCH [Duragesic 1 patch TRANSDERM Q72H #0 07/10/15 25MCG/HR] clonazePAM [KlonoPIN] 1 mg PO DAILY tab 10/14/17 clonazePAM [KlonoPIN] 2 mg PO HS tab 10/14/17 Allergies Allergy/AdvReac Type Severity Reaction Status Date / Time NSAIDS (Non-Steroidal Allergy Rash/Hives Verified 10/12/17 10:56 Anti-Inflamma Review of Systems ROS Other: All systems not noted in ROS Statement are negative. <Zaire Johnson - Last Filed: 10/17/17 19:47> ROS Other: All systems not noted in ROS Statement are negative. <Jerman Koo - Last Filed: 10/21/17 08:39> ROS Statement: Those systems with pertinent positive or pertinent negative responses have been documented in the HPI. Past Medical History Past Medical History: Coronary Artery Disease (CAD), Diabetes Mellitus, GERD/ Reflux, Hyperlipidemia, Hypertension, Syncope Additional Past Medical History / Comment(s): IDDM type II, recurrent DKA, episodes of hyperosmolar nonketonic hyperglycemia, hypertensive heart disease, chronic pain syndrome, hypertriglyceridemia, chronic pancreatitis, chronic abdominal pain, gastroparesis, severe GERD, diabetic polyneuropathy mostly in hands and alittle in feet bilaterally, infectious colitis. History of Any Multi-Drug Resistant Organisms: C-DIFF Date of last positivie culture/infection: pt. unsure MDRO Source:: stool Past Surgical History: Cholecystectomy Additional Past Surgical History / Comment(s): Biliary stent through an ERCP that was performed at [facility] and stent removed 2007, lap jenn, colonoscopy, ERCP. Past Anesthesia/Blood Transfusion Reactions: No Reported Reaction Additional Past Anesthesia/Blood Transfusion Reaction / Comment(s): Pt has never received blood."CLAUSTERPHOBIA" Past Psychological History: Anxiety, Depression, Panic Disorder, PTSD Smoking Status: Never smoker Past Alcohol Use History: Rare Past Drug Use History: None Reported - Past Family History Sister(s) Additional Family Medical History / Comment(s): Patient has 2 sisters with no major medical problems. Daughter(s) Additional Family Medical History / Comment(s): Patient has 2 daughters and one had mitral valve replacement. Son(s) Additional Family Medical History / Comment(s): She has one son with no major medical problems. Brother(s) Additional Family Medical History / Comment(s): Does not have any brothers. Father Family Medical History: No Reported History Additional Family Medical History / Comment(s): Father is 79 years of age with severe anxiety and was hospitalized for this at times. Mother Family Medical History: Cancer Additional Family Medical History / Comment(s): Mother of metastatic breast CA at the age of 42yrs. pt. states her grandmother had diabetes as well <Zaire Johnson - Last Filed: 10/17/17 19:47> General Exam Limitations: no limitations <Zaire Johnson - Last Filed: 10/17/17 19:47> <Jerman Koo - Last Filed: 10/21/17 08:39> - General Exam Comments Initial Comments: General: The patient is awake and alert, in no distress, and does not appear acutely ill. Eye: Pupils are equal, round and reactive to light, extra-ocular movements are intact. No nystagmus. There is normal conjunctiva bilaterally. No signs of icterus. Ears, nose, mouth and throat: There are moist mucous membranes and no oral lesions. Neck: The neck is supple, there is no tenderness or JVD. Cardiovascular: There is a regular rate and rhythm. No murmur, rub or gallop is appreciated. Respiratory: Lungs are clear to auscultation, respirations are non-labored, breath sounds are equal. No wheezes, stridor, rales, or rhonchi. Gastrointestinal: Abdomen soft on palpation. Patient does have tenderness in the epigastric and left upper quadrant. No Rebound tenderness. No guarding. No CVA tenderness. Musculoskeletal: Normal ROM, no tenderness. Strength 5/5. Sensation intact. Pulses equal bilaterally 2+. Neurological: A&O x 3. CN II-XII intact, There are no obvious motor or sensory deficits. Coordination appears grossly intact. Speech is normal. Skin: Skin is warm and dry and no rashes or lesions are noted. Psychiatric: Cooperative, appropriate mood & affect, normal judgment. (Zaire Johnson) Vital Signs 10/12/17 10/12/17 02:04 17:03 Temperature 97.8 F 98.4 F Pulse Rate 120 H 80 Respiratory 18 18 Rate Blood Pressure 144/96 109/62 O2 Sat by Pulse 98 97 Oximetry Medical Decision Making - Lab Data Result diagrams: 10/14/17 07:27 10/14/17 07:27 <Zaire Johnson - Last Filed: 10/17/17 19:47> - Lab Data Result diagrams: 10/14/17 07:27 10/14/17 07:27 <Jerman Koo - Last Filed: 10/21/17 08:39> - Medical Decision Making Labs reviewed does show lactic acidosis 10.5. Glucose was elevated. Patient given 2 L bolus of normal saline. Mildly elevated anion gap. Negative acetone. Patient started on DKA protocol and admitted to the hospital. (Zaire Johnson) I saw this patient in conjunction with the physician social human services assistants. I performed independent history and physical exam. Agree with case management. (Jerman Koo) - Lab Data Lab Results 10/12/17 10/12/17 10/12/17 Range/Units 02:45 03:35 03:35 WBC 5.3 (3.8-10.6) k/uL RBC 4.61 (3.80-5.40) m/uL Hgb 14.3 (11.4-16.0) gm/dL Hct 42.5 (34.0-46.0) % MCV 92.3 (80.0-100.0) fL MCH 31.1 (25.0-35.0) pg MCHC 33.7 (31.0-37.0) g/dL RDW 13.1 (11.5-15.5) % Plt Count 182 (150-450) k/uL Neutrophils % 84 % Lymphocytes % 14 % Monocytes % 2 % Eosinophils % 0 % Basophils % 0 % Neutrophils # 4.4 (1.3-7.7) k/uL Lymphocytes # 0.7 L (1.0-4.8) k/uL Monocytes # 0.1 (0-1.0) k/uL Eosinophils # 0.0 (0-0.7) k/uL Basophils # 0.0 (0-0.2) k/uL Sodium 136 L (137-145) mmol/L Potassium 4.7 (3.5-5.1) mmol/L Chloride 100 (98-107) mmol/L Carbon Dioxide 11 L (22-30) mmol/L Anion Gap 25 mmol/L BUN 13 (7-17) mg/dL Creatinine 0.60 (0.52-1.04) mg/dL Est GFR (CKD-EPI)AfAm >90 (>60 ml/min/1.73 sqM) Est GFR (CKD-EPI)NonAf >90 (>60 ml/min/1.73 sqM) Glucose 721 H* (74-99) mg/dL POC Glucose (mg/dL) >600 H (75-99) mg/dL POC Glu Aoc Director Intelligence Officer ID Alaina Bueno Plasma Lactic Acid [place] (0.7-2.0) mmol/L Calcium 9.8 (8.4-10.2) mg/dL Total Bilirubin 0.4 (0.2-1.3) mg/dL AST 34 (14-36) U/L ALT 28 (9-52) U/L Alkaline Phosphatase 119 (38-126) U/L Total Protein 7.3 (6.3-8.2) g/dL Albumin 4.9 (3.5-5.0) g/dL Amylase 127 H (30-110) U/L Lipase 112 (23-300) U/L Urine Color Urine Appearance (Clear) Urine pH (5.0-8.0) Ur Specific [place] (1.001-1.035) Urine Protein (Negative) Urine Glucose (UA) (Negative) Urine Ketones (Negative) Urine Blood (Negative) Urine Nitrite (Negative) Urine Bilirubin (Negative) Urine Urobilinogen (<2.0) mg/dL Ur Leukocyte Esterase (Negative) Acetone, Qual Negative (Negative) 10/12/17 10/12/17 Range/Units 03:35 03:35 WBC (3.8-10.6) k/uL RBC (3.80-5.40) m/uL Hgb (11.4-16.0) gm/dL Hct (34.0-46.0) % MCV (80.0-100.0) fL MCH (25.0-35.0) pg MCHC (31.0-37.0) g/dL RDW (11.5-15.5) % Plt Count (150-450) k/uL Neutrophils % % Lymphocytes % % Monocytes % % Eosinophils % % Basophils % % Neutrophils # (1.3-7.7) k/uL Lymphocytes # (1.0-4.8) k/uL Monocytes # (0-1.0) k/uL Eosinophils # (0-0.7) k/uL Basophils # (0-0.2) k/uL Sodium (137-145) mmol/L Potassium (3.5-5.1) mmol/L Chloride (98-107) mmol/L Carbon Dioxide (22-30) mmol/L Anion Gap mmol/L BUN (7-17) mg/dL Creatinine (0.52-1.04) mg/dL Est GFR (CKD-EPI)AfAm (>60 ml/min/1.73 sqM) Est GFR (CKD-EPI)NonAf (>60 ml/min/1.73 sqM) Glucose (74-99) mg/dL POC Glucose (mg/dL) (75-99) mg/dL POC Glu Aoc Director Intelligence Officer ID Plasma Lactic Acid [place] 10.5 H* (0.7-2.0) mmol/L Calcium (8.4-10.2) mg/dL Total Bilirubin (0.2-1.3) mg/dL AST (14-36) U/L ALT (9-52) U/L Alkaline Phosphatase (38-126) U/L Total Protein (6.3-8.2) g/dL Albumin (3.5-5.0) g/dL Amylase (30-110) U/L Lipase (23-300) U/L Urine Color Colorless Urine Appearance Clear (Clear) Urine pH 5.0 (5.0-8.0) Ur Specific [place] 1.022 (1.001-1.035) Urine Protein Negative (Negative) Urine Glucose (UA) 4+ H (Negative) Urine Ketones 1+ H (Negative) Urine Blood Negative (Negative) Urine Nitrite Negative (Negative) Urine Bilirubin Negative (Negative) Urine Urobilinogen <2.0 (<2.0) mg/dL Ur Leukocyte Esterase Negative (Negative) Acetone, Qual (Negative) Disposition Is patient prescribed a controlled substance at d/c from ED?: No <Zaire Johnson - Last Filed: 10/17/17 19:47> <Jerman Koo - Last Filed: 10/21/17 08:39> Clinical Impression: Lactic acidosis, Hyperglycemia Disposition: ADMITTED IP TO THIS HOSP Condition: Good
[2017-10-12 02:46] LABS: Glucose,Whole Blood >600 mg/dL (75-99)
[2017-10-12 08:03] LABS: Glucose,Whole Blood 413 mg/dL (75-99)
[2017-10-12 09:13] LABS: Glucose,Whole Blood 399 mg/dL (75-99)
[2017-10-12 09:58] LABS: Glucose,Whole Blood 303 mg/dL (75-99)
[2017-10-12 11:07] LABS: Glucose,Whole Blood 285 mg/dL (75-99)
[2017-10-12] MEDS ORDERED: ONDANSETRON 4 MG/2 ML VIAL IVP PRN (11:31)
[2017-10-12] MEDS ORDERED: LORazepam 2 MG/ML INJ IV PRN (11:33)
[2017-10-12] MEDS ORDERED: INSULIN REGULAR BOLUS (FROM DRIP BAG) IV ONE (11:37)
[2017-10-12 12:16] LABS: Anion Gap 17 mmol/L; Blood Urea Nitrogen 8 mg/dL (7-17); Carbon Dioxide 14 mmol/L (22-30); Chloride 109 mmol/L (98-107); Glucose 392 mg/dL (74-99); Potassium 4.2 mmol/L (3.5-5.1); Sodium 140 mmol/L (137-145)
[2017-10-12 12:20] LABS: Basophils % (A) 0 %; Eosinophils % (A) 0 %; HCT 42.5 % (34.0-46.0); HGB 14.3 gm/dL (11.4-16.0); Lymphocytes # (A) 0.7 k/uL (1.0-4.8); Lymphocytes % (A) 14 %; MCH 31.1 pg (25.0-35.0); MCHC 33.7 g/dL (31.0-37.0); MCV 92.3 fL (80.0-100.0); Mean Platelet Volume 6.6; Monocytes # (A) 0.1 k/uL (0-1.0); Monocytes % (A) 2 %; Neutrophils # (A) 4.4 k/uL (1.3-7.7); Neutrophils % (A) 84 %; Platelet Count 182 k/uL (150-450); RBC 4.61 m/uL (3.80-5.40); RDW 13.1 % (11.5-15.5); WBC 5.3 k/uL (3.8-10.6)
[2017-10-12 12:21] LABS: ALT 28 U/L (9-52); AST 34 U/L (14-36); Albumin 4.9 g/dL (3.5-5.0); Alkaline Phosphatase 119 U/L (38-126); Amylase 127 U/L (30-110); Anion Gap 25 mmol/L; Blood Urea Nitrogen 13 mg/dL (7-17); Calcium 9.8 mg/dL (8.4-10.2); Carbon Dioxide 11 mmol/L (22-30); Chloride 100 mmol/L (98-107); Lipase 112 U/L (23-300); Potassium 4.7 mmol/L (3.5-5.1); Sodium 136 mmol/L (137-145); Total Bilirubin 0.4 mg/dL (0.2-1.3); Total Protein 7.3 g/dL (6.3-8.2)
[2017-10-12 12:23] LABS: Glucose 721 mg/dL (74-99)
[2017-10-12 12:32] LABS: Glucose,Whole Blood 256 mg/dL (75-99)
--- NOTE | 2017-10-12 12:53 | P.HPIM ---
History of Present Illness H&P Date: 10/12/17 This is a 52-year-old female patient of Dr. Borges with previous medical history significant for familial dyslipidemia, recurrent pancreatitis and chroni abdominal pain, thought to be due to hypertriglyceridemia, hypertension and hypertensive cardiovascular disease, diabetes mellitus type 2 with recurrent diabetic ketoacidosis as well as episodes of hyperosmolar nonketotic hyperglycemia, hypertensive cardiovascular disease, chronic pain syndrome, gastroparesis, gastroesophageal reflux disease, diabetic polyneuropathy. patient states she developed diarrhea with cramping so she ended up driving herself to the emergency department at around 3:00 in the morning and she was found to have elevated blood glucose level at 6 or 60, with elevated lactic acid at 10, she was started on insulin drip and IV fluid and she was admitted to the hospital for evaluation.. Review of Systems Constitutional: Reports weakness, Denies anorexia, Denies chronic headaches, Denies lethargy Eyes: denies blurred vision, denies bulging eye, denies decreased vision Ears: deny: decreased hearing Ears, nose, mouth and throat: Denies dysphagia, Denies neck lump Cardiovascular: Reports high blood pressure, Denies chest pain, Denies decreased exercise tolerance, Denies rapid heart beat, Denies shortness of breath, Denies syncope Respiratory: Denies congestion, Denies cough with sputum, Denies home oxygen, Denies sleep apnea, Denies snoring, Denies wheezing Gastrointestinal: Reports abdominal pain, Reports bloating, Reports nausea, Denies heartburn, Denies melena, Denies vomiting Genitourinary: Denies dysuria, Denies urgency Menstruation: Reports postmenopausal Musculoskeletal: Denies myalgias Musculoskeletal: absent: ankle pain, ankle stiffness, ankle swelling, elbow pain , elbow stiffness, elbow swelling, foot pain, foot stiffness, foot swelling, hand pain, hand stiffness, hand swelling, hip pain, hip stiffness, hip swelling , knee pain, knee stiffness, knee swelling, shoulder pain, shoulder stiffness, shoulder swelling, wrist pain, wrist stiffness, wrist swelling Integumentary: Denies pruritus, Denies rash Neurological: Denies numbness, Denies weakness Psychiatric: Reports anxiety, Reports depression Endocrine: Denies fatigue, Denies weight change Past Medical History Past Medical History: Coronary Artery Disease (CAD), Diabetes Mellitus, GERD/ Reflux, Hyperlipidemia, Hypertension, Syncope Additional Past Medical History / Comment(s): IDDM type II, recurrent DKA, episodes of hyperosmolar nonketonic hyperglycemia, hypertensive heart disease, chronic pain syndrome, hypertriglyceridemia, chronic pancreatitis, chronic abdominal pain, gastroparesis, severe GERD, diabetic polyneuropathy mostly in hands and alittle in feet bilaterally, infectious colitis. History of Any Multi-Drug Resistant Organisms: C-DIFF Date of last positivie culture/infection: pt. unsure MDRO Source:: stool Past Surgical History: Cholecystectomy Additional Past Surgical History / Comment(s): Biliary stent through an ERCP that was performed at [facility] and stent removed 2007, lap jenn, colonoscopy, ERCP. Past Anesthesia/Blood Transfusion Reactions: No Reported Reaction Additional Past Anesthesia/Blood Transfusion Reaction / Comment(s): Pt has never received blood."CLAUSTERPHOBIA" Smoking Status: Never smoker - Past Family History Sister(s) Additional Family Medical History / Comment(s): Patient has 2 sisters with no major medical problems. Daughter(s) Additional Family Medical History / Comment(s): Patient has 2 daughters and one had mitral valve replacement. Son(s) Additional Family Medical History / Comment(s): She has one son with no major medical problems. Brother(s) Additional Family Medical History / Comment(s): Does not have any brothers. Father Family Medical History: No Reported History Additional Family Medical History / Comment(s): Father is 79 years of age with severe anxiety and was hospitalized for this at times. Mother Family Medical History: Cancer Additional Family Medical History / Comment(s): Mother of metastatic breast CA at the age of 42yrs. pt. states her grandmother had diabetes as well Medications and Allergies Home Medications Medication Instructions Recorded Confirmed Type Lisinopril [Zestril] 20 mg PO DAILY 09/09/13 10/12/17 History Gabapentin [Neurontin] 200 mg PO BID cap 08/09/14 10/12/17 Rx Sertraline [Zoloft] 200 mg PO DAILY tab 08/09/14 10/12/17 Rx HYDROmorphone [Dilaudid] 2 mg PO Q12H PRN 09/17/14 10/12/17 History Multivitamins, Thera [Multivitamin 1 tab PO DAILY 09/17/14 10/12/17 History (formulary)] Atenolol [Tenormin] 100 mg PO DAILY 11/19/14 10/12/17 History Calcium Carb-Vit D 500Mg-200Un 1 tab PO BID 11/19/14 10/12/17 History [Oscal 500+D] Mirtazapine [Remeron] 45 mg PO HS 11/19/14 10/12/17 History Rosuvastatin Calcium [Crestor] 40 mg PO HS 11/19/14 10/12/17 History fentaNYL 25MCG/HR PATCH [Duragesic 1 patch TRANSDERM Q72H #0 07/10/15 10/12/17 Rx 25MCG/HR] Insulin Aspart [NovoLOG Flexpen] 26 unit SQ AC-BRKFST 10/14/15 10/12/17 History Insulin Aspart [NovoLOG Flexpen] 26 unit SQ AC-LUNCH 10/14/15 10/12/17 History Insulin Aspart [NovoLOG Flexpen] 36 units SQ AC-SUPPER 10/14/15 10/12/17 History Pancreatic Enzymes Otc(Unknown) 1 cap PO AC-TID 10/14/15 10/12/17 History Niacin 1,000 mg PO HS 02/04/16 10/12/17 History Insulin Detemir [Levemir] 66 unit SQ HS 07/21/16 10/12/17 History Gemfibrozil [Lopid] 600 mg PO AC-BID 07/02/17 10/12/17 History Metoclopramide [Reglan] 5 mg PO QID 10/12/17 10/12/17 History Allergies Allergy/AdvReac Type Severity Reaction Status Date / Time NSAIDS (Non-Steroidal Allergy Rash/Hives Verified 10/12/17 10:56 Anti-Inflamma Physical Exam Vitals: Vital Signs Temp Pulse Resp BP Pulse Ox 10/12/17 02:04 97.8 F 120 H 18 144/96 98 Intake and Output 10/11/17 10/12/17 10/12/17 22:59 06:59 14:59 Other: Weight 64.41 kg - Constitutional General appearance: average body habitus, no acute distress - EENT Eyes: anicteric sclerae, EOMI, PERRLA, no ptosis, no scleral icterus, normal appearance ENT: hearing grossly normal, NA/AT, normal oropharynx, no thrush Ears: bilateral: normal - Neck Neck: no lymphadenopathy, normal ROM, no rigidity, no stridor, no thyromegaly Carotids: bilateral: upstroke normal Thyroid: bilateral: normal size - Respiratory Respiratory: bilateral: CTA, negative: diminished, dullness, rales, rhonchi, wheezing, prolonged expiration, prolonged inspiration - Cardiovascular Rhythm: regular Heart sounds: normal: S1, S2 Abnormal Heart Sounds: no systolic murmur, no S3 Gallop, no S4 Gallop - Gastrointestinal General gastrointestinal: normal bowel sounds, soft, tenderness, no umbilical hernia, no ventral hernia - Integumentary Integumentary: normal, normal turgor - Neurologic Neurologic: CNII-XII intact - Musculoskeletal Musculoskeletal: gait normal, strength equal bilaterally - Psychiatric Psychiatric: A&O x's 3, appropriate affect, intact judgment & insight Results CBC & Chem 7: 10/12/17 03:35 10/12/17 09:40 Labs: Abnormal Lab Results - Last 24 Hours (Table) 10/12/17 10/12/17 10/12/17 Range/Units 02:45 03:35 03:35 Lymphocytes # 0.7 L (1.0-4.8) k/uL Sodium 136 L (137-145) mmol/L Chloride (98-107) mmol/L Carbon Dioxide 11 L (22-30) mmol/L Creatinine (0.52-1.04) mg/dL Glucose 721 H* (74-99) mg/dL POC Glucose (mg/dL) >600 H (75-99) mg/dL Plasma Lactic Acid Dawit (0.7-2.0) mmol/L Amylase 127 H (30-110) U/L 10/12/17 10/12/17 10/12/17 Range/Units 03:35 08:01 08:58 Lymphocytes # (1.0-4.8) k/uL Sodium (137-145) mmol/L Chloride (98-107) mmol/L Carbon Dioxide (22-30) mmol/L Creatinine (0.52-1.04) mg/dL Glucose (74-99) mg/dL POC Glucose (mg/dL) 413 H 399 H (75-99) mg/dL Plasma Lactic Acid Dawit 10.5 H* (0.7-2.0) mmol/L Amylase (30-110) U/L 10/12/17 10/12/17 10/12/17 Range/Units 09:40 09:40 09:55 Lymphocytes # (1.0-4.8) k/uL Sodium (137-145) mmol/L Chloride 109 H (98-107) mmol/L Carbon Dioxide 14 L (22-30) mmol/L Creatinine 0.50 L (0.52-1.04) mg/dL Glucose 392 H (74-99) mg/dL POC Glucose (mg/dL) 303 H (75-99) mg/dL Plasma Lactic Acid Dawit 7.2 H* (0.7-2.0) mmol/L Amylase (30-110) U/L 10/12/17 10/12/17 Range/Units 11:05 12:16 Lymphocytes # (1.0-4.8) k/uL Sodium (137-145) mmol/L Chloride (98-107) mmol/L Carbon Dioxide (22-30) mmol/L Creatinine (0.52-1.04) mg/dL Glucose (74-99) mg/dL POC Glucose (mg/dL) 285 H 256 H (75-99) mg/dL Plasma Lactic Acid Dawit (0.7-2.0) mmol/L Amylase (30-110) U/L Thrombosis Risk Factor Assmnt - DVT/VTE Prophylaxis DVT/VTE Prophylaxis: Pharmacologic Prophylaxis ordered, Mechanical Prophylaxis ordered - Choose All That Apply Any of the Below Risk Factors Present?: Yes Each Factor Represents 1 point: Age 41-60 years Other Risk Factors: No Other congenital or acquired thrombophilia - If yes, enter type in comment: No Thrombosis Risk Factor Assessment Total Risk Factor Score: 1 Thrombosis Risk Factor Assessment Level: Low Risk Assessment and Plan Assessment: Assessment and plan: 1. DKA. IV fluid, insulin drip per protocol. Patient will be transition to Levemir 66 units at bedtime along with her scheduled NovoLog and scale, continue clear liquid diet. Clear liquid diet . 2. History of diabetes mellitus type 2, insulin requiring we will transition the patient back to Levemir 66 units at bedtime along with Humalog. 3. Hypertension and hypertensive cardiovascular disease with left ventricular hypertrophy we will continue the patient on atenolol 100 mg orally once every day as well as lisinopril 20 mg orally once every day. 4. Hyperlipidemia continue the patient on Crestor 40 mg orally once every day, fenofibrate 160 mg orally once every day,Niaspan 1000 g orally once every. 5. Diabetic polyneuropathy continue gabapentin 200 mg orally twice every day. 6. Anxiety generalized disorder. Continue Klonopin 2 milligram in the evening and 1 mg in the morning. 7. Depression, recurrent. Continue Zoloft 200 mg orally once every day. 8. Gastroparesis continue Reglan 5 mg before each meal 3 times every day. 9. Chronic pancreatitis continue IV fluid resuscitation as well as current pain management in the form of Dilaudid along with fentanyl patch. 10. GERD continue PPI. 11. DVT. Continue heparin 5000 units subcutaneously every 12 hours. 12. Acute lactic acidosis. 13. Full code. 14. Admit to inpatient. Estimated length of stay 2 midnights .
[2017-10-12 13:12] LABS: Appearance,Urine Clear (Clear); Bilirubin,Urine Negative (Negative); Blood,Urine Negative (Negative); Color,Urine Colorless; Glucose,Urine (UA) 4+ (Negative); Ketones,Urine 1+ (Negative); Leukocyte Esterase,Urine Negative (Negative); Nitrite,Urine Negative (Negative); Protein,Urine Negative (Negative); Specific Gravity,Urine 1.022 (1.001-1.035); Urobilinogen,Urine <2.0 mg/dL (<2.0)
[2017-10-12 13:28] LABS: Glucose,Whole Blood 209 mg/dL (75-99)
[2017-10-12 14:32] LABS: Glucose,Whole Blood 161 mg/dL (75-99)
[2017-10-12 15:04] LABS: Anion Gap 14 mmol/L; Blood Urea Nitrogen 6 mg/dL (7-17); Carbon Dioxide 19 mmol/L (22-30); Chloride 108 mmol/L (98-107); Glucose 167 mg/dL (74-99); Potassium 3.7 mmol/L (3.5-5.1); Sodium 141 mmol/L (137-145)
[2017-10-12 15:23] LABS: Glucose,Whole Blood 129 mg/dL (75-99)
--- NOTE | 2017-10-12 16:27 | P.CNPUL ---
History of Present Illness Consult date: 10/12/17 Requesting physician: Mike Borges Reason for consult: other Chief complaint: Hyperglycemia, metabolic acidosis, lactic acidosis, dehydration History of present illness: Yoon is a 52-year-old white female patient presented to the emergency department on 10/12/2017 at 0201 with complaints of nausea, vomiting, abdominal pain, and diarrhea. Patient states she started having diarrhea 2 days ago. She has a history of diabetes mellitus type 2, chronic pancreatitis, recurrent DKA, H&H and cake, hypertension, chronic pain syndrome, hypertriglyceridemia, gastroparesis, severe GERD, anxiety, depression. Patient was having some epigastric and left upper quadrant discomfort. Denied any fever or chills, denied any shortness of breath, denying chest pain, dysuria, or hematuria, headaches, blurred vision. In the emergency room CBG was greater than 600, serum glucose was 721, CO2 was only 11, anion gap was elevated at 25, no leukocytosis, WBC was normal at 5.3, hemoglobin is 14.3, sodium is 136, potassium is 4.7, BUN is 13, creatinine 0.60. Asthma lactic acid was at 10.5, amylase was 127, lipase was 112, LFTs were within normal limits. Urinalysis showed 4+ glucose, and ketones. Serum acetone was negative. Patient has been afebrile, she was tachycardic on presentation, with heart rate in the 120s, currently down to 70 BPM. Blood pressure is 144/96, she is on room air with a pulse ox of 98%, no pulmonary complaints. 1 L bolus of 0.9 normal saline was given, insulin inffusion was started per DKA protocol, patient received additional IV fluids in the form of 0.9 normal saline at a rate of 200 for several hours, this has been switched to D5.45 with 20 of KCl at a rate of 150 ML per hour. Lactic acid subsequently went down to 7.2, and 4.5, after fluid boluses, and insulin infusion patient. No further vomiting or nausea, abdomen is soft, and nontender. Latest blood work from 1400 shows sodium of 141, potassium is 3.7, chloride is 108, CO2 is up to 19, anion gap is down to 14, BUN of 6, creatinine 0.50, and glucose of 167. Patient is seen in the emergency room, she is awaiting a bed in the intensive care, she is awake alert , in no acute distress, resting on the gurney comfortably. Vital signs are stable, no specific complaints at this time. We are consulted in regards to ICU management Review of Systems All systems: negative Constitutional: Denies chills, Denies fever Eyes: denies blurred vision, denies pain Ears, nose, mouth and throat: Denies headache, Denies sore throat Cardiovascular: Denies chest pain, Denies shortness of breath Respiratory: Denies cough Gastrointestinal: Reports abdominal pain, Reports diarrhea, Denies nausea, Denies vomiting Genitourinary: Denies dysuria, Denies hematuria Musculoskeletal: Denies myalgias Integumentary: Denies pruritus, Denies rash Neurological: Denies numbness, Denies weakness Psychiatric: Denies anxiety, Denies depression Endocrine: Denies fatigue, Denies weight change Past Medical History Past Medical History: Coronary Artery Disease (CAD), Diabetes Mellitus, GERD/ Reflux, Hyperlipidemia, Hypertension, Syncope Additional Past Medical History / Comment(s): IDDM type II, recurrent DKA, episodes of hyperosmolar nonketonic hyperglycemia, hypertensive heart disease, chronic pain syndrome, hypertriglyceridemia, chronic pancreatitis, chronic abdominal pain, gastroparesis, severe GERD, diabetic polyneuropathy mostly in hands and alittle in feet bilaterally, infectious colitis. History of Any Multi-Drug Resistant Organisms: C-DIFF Date of last positivie culture/infection: pt. unsure MDRO Source:: stool Past Surgical History: Cholecystectomy Additional Past Surgical History / Comment(s): Biliary stent through an ERCP that was performed at [facility] and stent removed 2007, lap jenn, colonoscopy, ERCP. Past Anesthesia/Blood Transfusion Reactions: No Reported Reaction Additional Past Anesthesia/Blood Transfusion Reaction / Comment(s): Pt has never received blood."CLAUSTERPHOBIA" Smoking Status: Never smoker - Past Family History Sister(s) Additional Family Medical History / Comment(s): Patient has 2 sisters with no major medical problems. Daughter(s) Additional Family Medical History / Comment(s): Patient has 2 daughters and one had mitral valve replacement. Son(s) Additional Family Medical History / Comment(s): She has one son with no major medical problems. Brother(s) Additional Family Medical History / Comment(s): Does not have any brothers. Father Family Medical History: No Reported History Additional Family Medical History / Comment(s): Father is 79 years of age with severe anxiety and was hospitalized for this at times. Mother Family Medical History: Cancer Additional Family Medical History / Comment(s): Mother of metastatic breast CA at the age of 42yrs. pt. states her grandmother had diabetes as well Medications and Allergies Home Medications Medication Instructions Recorded Confirmed Type Lisinopril [Zestril] 20 mg PO DAILY 09/09/13 10/12/17 History Gabapentin [Neurontin] 200 mg PO BID cap 08/09/14 10/12/17 Rx Sertraline [Zoloft] 200 mg PO DAILY tab 08/09/14 10/12/17 Rx HYDROmorphone [Dilaudid] 2 mg PO Q12H PRN 09/17/14 10/12/17 History Multivitamins, Thera [Multivitamin 1 tab PO DAILY 09/17/14 10/12/17 History (formulary)] Atenolol [Tenormin] 100 mg PO DAILY 11/19/14 10/12/17 History Calcium Carb-Vit D 500Mg-200Un 1 tab PO BID 11/19/14 10/12/17 History [Oscal 500+D] Mirtazapine [Remeron] 45 mg PO HS 11/19/14 10/12/17 History Rosuvastatin Calcium [Crestor] 40 mg PO HS 11/19/14 10/12/17 History fentaNYL 25MCG/HR PATCH [Duragesic 1 patch TRANSDERM Q72H #0 07/10/15 10/12/17 Rx 25MCG/HR] Insulin Aspart [NovoLOG Flexpen] 26 unit SQ AC-BRKFST 10/14/15 10/12/17 History Insulin Aspart [NovoLOG Flexpen] 26 unit SQ AC-LUNCH 10/14/15 10/12/17 History Insulin Aspart [NovoLOG Flexpen] 36 units SQ AC-SUPPER 10/14/15 10/12/17 History Pancreatic Enzymes Otc(Unknown) 1 cap PO AC-TID 10/14/15 10/12/17 History Niacin 1,000 mg PO HS 02/04/16 10/12/17 History Insulin Detemir [Levemir] 66 unit SQ HS 07/21/16 10/12/17 History Gemfibrozil [Lopid] 600 mg PO AC-BID 07/02/17 10/12/17 History Metoclopramide [Reglan] 5 mg PO QID 10/12/17 10/12/17 History Allergies Allergy/AdvReac Type Severity Reaction Status Date / Time NSAIDS (Non-Steroidal Allergy Rash/Hives Verified 10/12/17 10:56 Anti-Inflamma Physical Exam Vitals: Vital Signs Temp Pulse Resp BP Pulse Ox 10/12/17 02:04 97.8 F 120 H 18 144/96 98 Intake and Output 10/12/17 10/12/17 10/12/17 06:59 14:59 22:59 Other: Weight 64.41 kg GENERAL EXAM: Alert, pleasant, 52-year-old white female comfortable in no apparent distress, seen in the emergency department, resting on the stretcher HEAD: Normocephalic/atraumatic. EYES: Normal reaction of pupils, equal size. Conjunctiva pink, sclera white. NOSE: Clear with pink turbinates. THROAT: No erythema or exudates. NECK: No masses, no JVD, no thyroid enlargement, no adenopathy. CHEST: No chest wall deformity. Symmetrical expansion. LUNGS: Equal air entry with no crackles, wheeze, rhonchi or dullness. CVS: Regular rate and rhythm, normal S1 and S2, no gallops, no murmurs, no rubs ABDOMEN: Soft, nontender. No hepatosplenomegaly, normal bowel sounds, no guarding or rigidity. EXTREMITIES: No clubbing, no edema, no cyanosis, 2+ pulses and upper and lower extremities. MUSCULOSKELETAL: Muscle strength and tone normal. SPINE: No scoliosis or deformity SKIN: No rashes CENTRAL NERVOUS SYSTEM: Alert and oriented -3. No focal deficits, tone is normal in all 4 extremities. PSYCHIATRIC: Alert and oriented -3. Appropriate affect. Intact judgment and insight. Results - Laboratory Findings CBC and BMP: 10/12/17 03:35 10/12/17 14:24 Abnormal lab findings: Abnormal Labs 10/12/17 10/12/17 10/12/17 02:45 03:35 03:35 Lymphocytes # 0.7 L Sodium 136 L Chloride Carbon Dioxide 11 L BUN Creatinine Glucose 721 H* POC Glucose (mg/dL) >600 H Plasma Lactic Acid Dawit Amylase 127 H Urine Glucose (UA) Urine Ketones 10/12/17 10/12/17 10/12/17 03:35 03:35 08:01 Lymphocytes # Sodium Chloride Carbon Dioxide BUN Creatinine Glucose POC Glucose (mg/dL) 413 H Plasma Lactic Acid Dawit 10.5 H* Amylase Urine Glucose (UA) 4+ H Urine Ketones 1+ H 10/12/17 10/12/17 10/12/17 08:58 09:40 09:40 Lymphocytes # Sodium Chloride 109 H Carbon Dioxide 14 L BUN Creatinine 0.50 L Glucose 392 H POC Glucose (mg/dL) 399 H Plasma Lactic Acid Dawit 7.2 H* Amylase Urine Glucose (UA) Urine Ketones 10/12/17 10/12/17 10/12/17 09:55 11:05 12:16 Lymphocytes # Sodium Chloride Carbon Dioxide BUN Creatinine Glucose POC Glucose (mg/dL) 303 H 285 H 256 H Plasma Lactic Acid Dawit Amylase Urine Glucose (UA) Urine Ketones 10/12/17 10/12/17 10/12/17 13:23 14:24 14:24 Lymphocytes # Sodium Chloride 108 H Carbon Dioxide 19 L BUN 6 L Creatinine 0.50 L Glucose 167 H POC Glucose (mg/dL) 209 H Plasma Lactic Acid Dawit 4.5 H* Amylase Urine Glucose (UA) Urine Ketones 10/12/17 10/12/17 14:30 15:21 Lymphocytes # Sodium Chloride Carbon Dioxide BUN Creatinine Glucose POC Glucose (mg/dL) 161 H 129 H Plasma Lactic Acid Dawit Amylase Urine Glucose (UA) Urine Ketones Assessment and Plan Plan: Assessment: #1. Acute hyperglycemia without evidence of ketosis, serum acetone was negative. Patient presented with a blood sugar of 721, lactic acidosis. As such patient is likely in the hyperosmolar nonketotic state #2. Anion gap metabolic acidosis secondary to lactic acidosis #3. Mild epigastric discomfort, nausea vomiting and diarrhea prior to presentation, lipase was negative, and amylase only slightly elevated at 127. Abdomen is soft, nontender with positive bowel sounds. #4. Diabetes mellitus type 2, with multiple recurrent hospitalizations for DKA #5. Hypertension, hyperlipidemia #6. Chronic pancreatitis with previous ERCP and biliary stenting and subsequent removal at the [facility] in 2007 #7. History of hypertriglyceridemia #8. Anxiety, depression, panic disorder PTSD #9. Diabetic gastroparesis #10. Peripheral neuropathy #11. Chronic pain syndrome Plan: Continue insulin infusion per DKA protocol, continue D5.45 with 20 of KCl at a rate of 150 ML per hour, patient's metabolic acidosis is improving in response to fluid resuscitation and insulin infusion, anion gap is decreasing, and is currently down to 14. Her dynamically patient remains stable, she denies any acute complaints. Denies lightheadedness, or blurred vision. Monitor vitals, hourly blood sugars, monitor electrolytes, and renal profile. We'll repeat lactic acid. Patient will be transferred to the intensive care once a bed is available. I performed a history & physical examination of the patient and discussed their management with my nurse practitioner, Carrie Daniel. I reviewed the nurse practitioner's note and agree with the documented findings and plan of care. Lung sounds are clear. The findings and the impression was discussed with the patient. I attest to the documentation by the nurse practitioner. Critical care time is over 30 minutes Time with Patient: Greater than 30
[2017-10-12 16:34] LABS: Glucose,Whole Blood 116 mg/dL (75-99)
[2017-10-12 17:08] LABS: Glucose,Whole Blood 127 mg/dL (75-99)
[2017-10-12 18:55] LABS: Glucose,Whole Blood 123 mg/dL (75-99)
[2017-10-12 20:07] LABS: Glucose,Whole Blood 113 mg/dL (75-99)
[2017-10-12 20:41] LABS: Glucose,Whole Blood 136 mg/dL (75-99)
[2017-10-12 20:43] LABS: ALT 31 U/L (9-52); AST 21 U/L (14-36); Albumin 3.8 g/dL (3.5-5.0); Alkaline Phosphatase 70 U/L (38-126); Anion Gap 11 mmol/L; Blood Urea Nitrogen 5 mg/dL (7-17); Calcium 8.6 mg/dL (8.4-10.2); Carbon Dioxide 22 mmol/L (22-30); Chloride 108 mmol/L (98-107); Glucose 125 mg/dL (74-99); Potassium 3.5 mmol/L (3.5-5.1); Sodium 141 mmol/L (137-145); Total Bilirubin 0.4 mg/dL (0.2-1.3); Total Protein 5.9 g/dL (6.3-8.2)
[2017-10-12 21:55] LABS: Glucose,Whole Blood 150 mg/dL (75-99)
[2017-10-12 22:51] LABS: Glucose,Whole Blood 176 mg/dL (75-99)
[2017-10-12] MEDS: CALCIUM CARB-VIT D 500MG-200UN 1 EACH TAB PO SCH (23:37)
[2017-10-12] MEDS: ATORVASTATIN 80 MG TAB PO SCH (23:37)
[2017-10-12] MEDS: METOCLOPRAMIDE 5 MG TAB PO SCH (23:37)
[2017-10-12] MEDS: GABAPENTIN 100 MG CAP PO SCH (23:37)
[2017-10-12] MEDS: NIACIN TR 500 MG CAPSULE.ER PO SCH (23:38)
[2017-10-12] MEDS: MIRTAZAPINE 45 MG TABLET PO SCH (23:38)
[2017-10-12 23:55] LABS: Glucose,Whole Blood 155 mg/dL (75-99)
[2017-10-13 00:37] LABS: Glucose,Whole Blood 145 mg/dL (75-99)
[2017-10-13 01:59] LABS: Glucose,Whole Blood 135 mg/dL (75-99)
[2017-10-13 03:19] LABS: Glucose,Whole Blood 132 mg/dL (75-99)
[2017-10-13 04:03] LABS: Glucose,Whole Blood 128 mg/dL (75-99)
[2017-10-13] MEDS: D5-0.45% NACL WITH KCL 20MEQ/L 1,000 ML IV SCH ×5 (04:23→15:35)
[2017-10-13] MEDS: MORPHINE SULFATE 2 MG/ML SYRINGE IVP PRN ×4 (04:26→20:11)
[2017-10-13 04:41] LABS: Basophils % (A) 0 %; Eosinophils # (A) 0.1 k/uL (0-0.7); Eosinophils % (A) 1 %; HCT 38.2 % (34.0-46.0); HGB 12.7 gm/dL (11.4-16.0); Lymphocytes # (A) 2.5 k/uL (1.0-4.8); Lymphocytes % (A) 33 %; MCH 29.5 pg (25.0-35.0); MCHC 33.4 g/dL (31.0-37.0); MCV 88.4 fL (80.0-100.0); Mean Platelet Volume 6.5; Monocytes # (A) 0.5 k/uL (0-1.0); Monocytes % (A) 7 %; Neutrophils # (A) 4.4 k/uL (1.3-7.7); Neutrophils % (A) 58 %; Platelet Count 133 k/uL (150-450); RBC 4.32 m/uL (3.80-5.40); WBC 7.7 k/uL (3.8-10.6)
[2017-10-13 04:56] LABS: ALT 39 U/L (9-52); AST 47 U/L (14-36); Albumin 3.6 g/dL (3.5-5.0); Alkaline Phosphatase 69 U/L (38-126); Amylase 82 U/L (30-110); Anion Gap 12 mmol/L; Blood Urea Nitrogen 4 mg/dL (7-17); Calcium 8.9 mg/dL (8.4-10.2); Carbon Dioxide 21 mmol/L (22-30); Chloride 109 mmol/L (98-107); Glucose 139 mg/dL (74-99); Lipase 91 U/L (23-300); Magnesium 1.9 mg/dL (1.6-2.3); Potassium 3.6 mmol/L (3.5-5.1); Sodium 142 mmol/L (137-145); Total Protein 5.8 g/dL (6.3-8.2)
[2017-10-13 05:10] LABS: Glucose,Whole Blood 146 mg/dL (75-99)
[2017-10-13 06:22] LABS: Glucose,Whole Blood 175 mg/dL (75-99)
[2017-10-13] MEDS: INSULIN REGULAR 100 UNIT in SODIUM CHLORIDE 0.9% 100 ML IV SCH ×2 (06:22→06:27)
[2017-10-13] MEDS: SODIUM CHLORIDE 0.9% 1,000 ML IV SCH ×5 (06:25→11:37)
[2017-10-13] MEDS: METOCLOPRAMIDE 5 MG TAB PO SCH ×5 (06:26→21:10)
[2017-10-13] MEDS: [UNRECOGNIZED DRUG - OTHER] PO SCH ×4 (06:26→18:15)
[2017-10-13] MEDS: GEMFIBROZIL 600 MG TAB PO SCH ×3 (06:26→18:17)
[2017-10-13] MEDS ORDERED: SODIUM CHLORIDE 0.9% 1,000 ML IV ONE (06:37)
[2017-10-13] MEDS: MAGNESIUM SULFATE-D5W PMX 1 GM in DEXTROSE/WATER 1 100ML.BAG IVPB SCH ×2 (06:53→08:36)
[2017-10-13 07:14] LABS: Glucose,Whole Blood 197 mg/dL (75-99)
[2017-10-13] MEDS: POTASSIUM CHLORIDE 10 MEQ in WATER FOR INJECTION 1 100ML.BAG IVPB SCH ×2 (07:39→10:02)
[2017-10-13 07:58] LABS: Glucose,Whole Blood 169 mg/dL (75-99)
[2017-10-13] MEDS: ATENOLOL 50 MG TAB PO SCH (08:37)
[2017-10-13] MEDS: CALCIUM CARB-VIT D 500MG-200UN 1 EACH TAB PO SCH ×2 (08:37→21:04)
[2017-10-13] MEDS: GABAPENTIN 100 MG CAP PO SCH ×2 (08:37→21:04)
[2017-10-13] MEDS: SERTRALINE 100 MG TAB PO SCH (08:38)
[2017-10-13] MEDS: LISINOPRIL 20 MG TAB PO SCH (08:38)
[2017-10-13 08:51] LABS: Anion Gap 10 mmol/L; Blood Urea Nitrogen 3 mg/dL (7-17); Calcium 8.6 mg/dL (8.4-10.2); Carbon Dioxide 22 mmol/L (22-30); Chloride 111 mmol/L (98-107); Glucose 186 mg/dL (74-99); Magnesium 2.3 mg/dL (1.6-2.3); Phosphorus 2.1 mg/dL (2.5-4.5); Potassium 4.2 mmol/L (3.5-5.1); Sodium 143 mmol/L (137-145)
[2017-10-13 09:04] LABS: Glucose,Whole Blood 191 mg/dL (75-99)
[2017-10-13] MEDS ORDERED: Phosphorus Replacement Protoco 1 EACH MISC MISCELLANE PRN (09:08)
[2017-10-13] MEDS ORDERED: SODIUM PHOSPHATE 10 MMOL in SODIUM CHLORIDE 0.9% 250 ML IVPB ONE (10:00)
[2017-10-13 10:02] LABS: Glucose,Whole Blood 204 mg/dL (75-99)
[2017-10-13] MEDS ORDERED: SODIUM CHLORIDE 0.9% 500 ML IV ONE (10:09)
[2017-10-13] MEDS: INSULIN DETEMIR 100 UNIT/ML 10 ML VIAL SQ SCH ×2 (10:14→21:05)
[2017-10-13 10:57] LABS: Glucose,Whole Blood 188 mg/dL (75-99)
[2017-10-13] MEDS: MULTIVITAMINS, THERA 1 EACH TAB PO SCH (11:26)
[2017-10-13 11:54] LABS: Glucose,Whole Blood 201 mg/dL (75-99)
[2017-10-13] MEDS ORDERED: INSULIN ASPART 100 UNIT/ML 1 ML 10 ML VIAL SQ ONE (12:00)
--- NOTE | 2017-10-13 12:33 | P.PN ---
Subjective This is a 52-year-old female patient of Dr. Borges with previous medical history significant for familial dyslipidemia, recurrent pancreatitis and chroni abdominal pain, thought to be due to hypertriglyceridemia, hypertension and hypertensive cardiovascular disease, diabetes mellitus type 2 with recurrent diabetic ketoacidosis as well as episodes of hyperosmolar nonketotic hyperglycemia, hypertensive cardiovascular disease, chronic pain syndrome, gastroparesis, gastroesophageal reflux disease, diabetic polyneuropathy. patient states she developed diarrhea with cramping so she ended up driving herself to the emergency department at around 3:00 in the morning and she was found to have elevated blood glucose level at 6 or 60, with elevated lactic acid at 10, she was started on insulin drip and IV fluid and she was admitted to the hospital for evaluation. 10/13: Patient evaluated in the ICU today, patient's doing much better her gap has closed and is 10. Insulin drip was discontinued and changed to NovoLog 13 units before meals 3 times a day, 18 units with supper, Levemir twice a day 33 units. She is tolerating a full liquid diet with no nausea or vomiting. She' ll be transferred out of the ICU to Med/Surg. Objective - Vital Signs Vital signs: Vital Signs Temp 98.6 F 10/13/17 07:00 Pulse 58 L 10/13/17 07:00 Resp 16 10/13/17 07:00 BP 146/84 10/13/17 07:00 Pulse Ox 96 10/13/17 07:00 Intake & Output 10/12/17 10/13/17 10/13/17 18:59 06:59 18:59 Intake Total 1000 Balance 1000 Intake: IV 1000 Sodium Chloride 0.9% 1, 1000 000 ml @ 125 mls/hr IV . Q8H [facility] Rx#:[id number] - Exam - Constitutional General appearance: average body habitus, no acute distress - EENT Eyes: anicteric sclerae, EOMI, PERRLA, no ptosis, no scleral icterus, normal appearance ENT: hearing grossly normal, NA/AT, normal oropharynx, no thrush Ears: bilateral: normal - Neck Neck: no lymphadenopathy, normal ROM, no rigidity, no stridor, no thyromegaly Carotids: bilateral: upstroke normal Thyroid: bilateral: normal size - Respiratory Respiratory: bilateral: CTA, negative: diminished, dullness, rales, rhonchi, wheezing, prolonged expiration, prolonged inspiration - Cardiovascular Rhythm: regular Heart sounds: normal: S1, S2 Abnormal Heart Sounds: no systolic murmur, no S3 Gallop, no S4 Gallop - Gastrointestinal General gastrointestinal: normal bowel sounds, soft, tenderness, no umbilical hernia, no ventral hernia - Integumentary Integumentary: normal, normal turgor - Neurologic Neurologic: CNII-XII intact - Musculoskeletal Musculoskeletal: gait normal, strength equal bilaterally - Psychiatric Psychiatric: A&O x's 3, appropriate affect, intact judgment & insight - Labs CBC & Chem 7: 10/13/17 04:10 10/13/17 08:12 Labs: Abnormal Lab Results - Last 24 Hours (Table) 10/12/17 10/12/17 10/12/17 Range/Units 03:35 03:35 03:35 Plt Count (150-450) k/uL Lymphocytes # 0.7 L (1.0-4.8) k/uL Sodium 136 L (137-145) mmol/L Chloride (98-107) mmol/L Carbon Dioxide 11 L (22-30) mmol/L BUN (7-17) mg/dL Creatinine (0.52-1.04) mg/dL Glucose 721 H* (74-99) mg/dL POC Glucose (mg/dL) (75-99) mg/dL Plasma Lactic Acid Dawit 10.5 H* (0.7-2.0) mmol/L Phosphorus (2.5-4.5) mg/dL AST (14-36) U/L Total Protein (6.3-8.2) g/dL Amylase 127 H (30-110) U/L Urine Glucose (UA) (Negative) Urine Ketones (Negative) 10/12/17 10/12/17 10/12/17 Range/Units 03:35 08:58 09:40 Plt Count (150-450) k/uL Lymphocytes # (1.0-4.8) k/uL Sodium (137-145) mmol/L Chloride (98-107) mmol/L Carbon Dioxide (22-30) mmol/L BUN (7-17) mg/dL Creatinine (0.52-1.04) mg/dL Glucose (74-99) mg/dL POC Glucose (mg/dL) 399 H (75-99) mg/dL Plasma Lactic Acid Dawit 7.2 H* (0.7-2.0) mmol/L Phosphorus (2.5-4.5) mg/dL AST (14-36) U/L Total Protein (6.3-8.2) g/dL Amylase (30-110) U/L Urine Glucose (UA) 4+ H (Negative) Urine Ketones 1+ H (Negative) 10/12/17 10/12/17 10/12/17 Range/Units 09:40 09:55 11:05 Plt Count (150-450) k/uL Lymphocytes # (1.0-4.8) k/uL Sodium (137-145) mmol/L Chloride 109 H (98-107) mmol/L Carbon Dioxide 14 L (22-30) mmol/L BUN (7-17) mg/dL Creatinine 0.50 L (0.52-1.04) mg/dL Glucose 392 H (74-99) mg/dL POC Glucose (mg/dL) 303 H 285 H (75-99) mg/dL Plasma Lactic Acid Dawit (0.7-2.0) mmol/L Phosphorus (2.5-4.5) mg/dL AST (14-36) U/L Total Protein (6.3-8.2) g/dL Amylase (30-110) U/L Urine Glucose (UA) (Negative) Urine Ketones (Negative) 10/12/17 10/12/17 10/12/17 Range/Units 12:16 13:23 14:24 Plt Count (150-450) k/uL Lymphocytes # (1.0-4.8) k/uL Sodium (137-145) mmol/L Chloride 108 H (98-107) mmol/L Carbon Dioxide 19 L (22-30) mmol/L BUN 6 L (7-17) mg/dL Creatinine 0.50 L (0.52-1.04) mg/dL Glucose 167 H (74-99) mg/dL POC Glucose (mg/dL) 256 H 209 H (75-99) mg/dL Plasma Lactic Acid Dawit (0.7-2.0) mmol/L Phosphorus (2.5-4.5) mg/dL AST (14-36) U/L Total Protein (6.3-8.2) g/dL Amylase (30-110) U/L Urine Glucose (UA) (Negative) Urine Ketones (Negative) 10/12/17 10/12/17 10/12/17 Range/Units 14:24 14:30 15:21 Plt Count (150-450) k/uL Lymphocytes # (1.0-4.8) k/uL Sodium (137-145) mmol/L Chloride (98-107) mmol/L Carbon Dioxide (22-30) mmol/L BUN (7-17) mg/dL Creatinine (0.52-1.04) mg/dL Glucose (74-99) mg/dL POC Glucose (mg/dL) 161 H 129 H (75-99) mg/dL Plasma Lactic Acid Dawit 4.5 H* (0.7-2.0) mmol/L Phosphorus (2.5-4.5) mg/dL AST (14-36) U/L Total Protein (6.3-8.2) g/dL Amylase (30-110) U/L Urine Glucose (UA) (Negative) Urine Ketones (Negative) 10/12/17 10/12/17 10/12/17 Range/Units 16:32 17:04 18:45 Plt Count (150-450) k/uL Lymphocytes # (1.0-4.8) k/uL Sodium (137-145) mmol/L Chloride (98-107) mmol/L Carbon Dioxide (22-30) mmol/L BUN (7-17) mg/dL Creatinine (0.52-1.04) mg/dL Glucose (74-99) mg/dL POC Glucose (mg/dL) 116 H 127 H 123 H (75-99) mg/dL Plasma Lactic Acid Dawit (0.7-2.0) mmol/L Phosphorus (2.5-4.5) mg/dL AST (14-36) U/L Total Protein (6.3-8.2) g/dL Amylase (30-110) U/L Urine Glucose (UA) (Negative) Urine Ketones (Negative) 10/12/17 10/12/17 10/12/17 Range/Units 19:49 20:16 20:16 Plt Count (150-450) k/uL Lymphocytes # (1.0-4.8) k/uL Sodium (137-145) mmol/L Chloride 108 H (98-107) mmol/L Carbon Dioxide (22-30) mmol/L BUN 5 L (7-17) mg/dL Creatinine 0.50 L (0.52-1.04) mg/dL Glucose 125 H (74-99) mg/dL POC Glucose (mg/dL) 113 H (75-99) mg/dL Plasma Lactic Acid Dawit 2.7 H* (0.7-2.0) mmol/L Phosphorus (2.5-4.5) mg/dL AST (14-36) U/L Total Protein 5.9 L (6.3-8.2) g/dL Amylase (30-110) U/L Urine Glucose (UA) (Negative) Urine Ketones (Negative) 10/12/17 10/12/17 10/12/17 Range/Units 20:37 21:52 22:48 Plt Count (150-450) k/uL Lymphocytes # (1.0-4.8) k/uL Sodium (137-145) mmol/L Chloride (98-107) mmol/L Carbon Dioxide (22-30) mmol/L BUN (7-17) mg/dL Creatinine (0.52-1.04) mg/dL Glucose (74-99) mg/dL POC Glucose (mg/dL) 136 H 150 H 176 H (75-99) mg/dL Plasma Lactic Acid Dawit (0.7-2.0) mmol/L Phosphorus (2.5-4.5) mg/dL AST (14-36) U/L Total Protein (6.3-8.2) g/dL Amylase (30-110) U/L Urine Glucose (UA) (Negative) Urine Ketones (Negative) 10/12/17 10/13/17 10/13/17 Range/Units 23:42 00:32 00:36 Plt Count (150-450) k/uL Lymphocytes # (1.0-4.8) k/uL Sodium (137-145) mmol/L Chloride (98-107) mmol/L Carbon Dioxide (22-30) mmol/L BUN (7-17) mg/dL Creatinine (0.52-1.04) mg/dL Glucose (74-99) mg/dL POC Glucose (mg/dL) 155 H 145 H (75-99) mg/dL Plasma Lactic Acid Dawit 2.8 H* (0.7-2.0) mmol/L Phosphorus (2.5-4.5) mg/dL AST (14-36) U/L Total Protein (6.3-8.2) g/dL Amylase (30-110) U/L Urine Glucose (UA) (Negative) Urine Ketones (Negative) 10/13/17 10/13/17 10/13/17 Range/Units 01:56 03:03 03:55 Plt Count (150-450) k/uL Lymphocytes # (1.0-4.8) k/uL Sodium (137-145) mmol/L Chloride (98-107) mmol/L Carbon Dioxide (22-30) mmol/L BUN (7-17) mg/dL Creatinine (0.52-1.04) mg/dL Glucose (74-99) mg/dL POC Glucose (mg/dL) 135 H 132 H 128 H (75-99) mg/dL Plasma Lactic Acid Dawit (0.7-2.0) mmol/L Phosphorus (2.5-4.5) mg/dL AST (14-36) U/L Total Protein (6.3-8.2) g/dL Amylase (30-110) U/L Urine Glucose (UA) (Negative) Urine Ketones (Negative) 10/13/17 10/13/17 10/13/17 Range/Units 04:10 04:10 04:10 Plt Count 133 L (150-450) k/uL Lymphocytes # (1.0-4.8) k/uL Sodium (137-145) mmol/L Chloride 109 H (98-107) mmol/L Carbon Dioxide 21 L (22-30) mmol/L BUN 4 L (7-17) mg/dL Creatinine 0.50 L (0.52-1.04) mg/dL Glucose 139 H (74-99) mg/dL POC Glucose (mg/dL) (75-99) mg/dL Plasma Lactic Acid Dawit 3.4 H* (0.7-2.0) mmol/L Phosphorus (2.5-4.5) mg/dL AST 47 H (14-36) U/L Total Protein 5.8 L (6.3-8.2) g/dL Amylase (30-110) U/L Urine Glucose (UA) (Negative) Urine Ketones (Negative) 10/13/17 10/13/17 10/13/17 Range/Units 04:57 06:05 07:11 Plt Count (150-450) k/uL Lymphocytes # (1.0-4.8) k/uL Sodium (137-145) mmol/L Chloride (98-107) mmol/L Carbon Dioxide (22-30) mmol/L BUN (7-17) mg/dL Creatinine (0.52-1.04) mg/dL Glucose (74-99) mg/dL POC Glucose (mg/dL) 146 H 175 H 197 H (75-99) mg/dL Plasma Lactic Acid Dawit (0.7-2.0) mmol/L Phosphorus (2.5-4.5) mg/dL AST (14-36) U/L Total Protein (6.3-8.2) g/dL Amylase (30-110) U/L Urine Glucose (UA) (Negative) Urine Ketones (Negative) 10/13/17 10/13/17 Range/Units 07:56 08:12 Plt Count (150-450) k/uL Lymphocytes # (1.0-4.8) k/uL Sodium (137-145) mmol/L Chloride 111 H (98-107) mmol/L Carbon Dioxide (22-30) mmol/L BUN 3 L (7-17) mg/dL Creatinine (0.52-1.04) mg/dL Glucose 186 H (74-99) mg/dL POC Glucose (mg/dL) 169 H (75-99) mg/dL Plasma Lactic Acid Dawit (0.7-2.0) mmol/L Phosphorus 2.1 L (2.5-4.5) mg/dL AST (14-36) U/L Total Protein (6.3-8.2) g/dL Amylase (30-110) U/L Urine Glucose (UA) (Negative) Urine Ketones (Negative) Assessment and Plan Plan: 1. DKA. IV fluid, insulin drip per protocol. Patient will be transitioned to Levemir 33 units at BID along with her scheduled NovoLog and scale, continue full liquid diet, gap has closed. 2. History of diabetes mellitus type 2, insulin requiring we will transition the patient back to Levemir 33 units twice a day along with NovoLog and scale.. 3. Hypertension and hypertensive cardiovascular disease with left ventricular hypertrophy we will continue the patient on atenolol 100 mg orally once every day as well as lisinopril 20 mg orally once every day. 4. Hyperlipidemia continue the patient on Crestor 40 mg orally once every day, fenofibrate 160 mg orally once every day, Niaspan 1000 g orally once every. 5. Diabetic polyneuropathy continue gabapentin 200 mg orally twice every day. 6. Anxiety generalized disorder. Continue Klonopin 2 milligram in the evening and 1 mg in the morning. 7. Depression, recurrent. Continue Zoloft 200 mg orally once every day. 8. Gastroparesis continue Reglan 5 mg before each meal 3 times every day. 9. Chronic pancreatitis continue IV fluid resuscitation as well as current pain management in the form of Dilaudid along with fentanyl patch. 10. GERD continue PPI. 11. DVT. Continue heparin 5000 units subcutaneously every 12 hours. 12. Acute lactic acidosis. 13. Full code. 14. Admit to inpatient. Estimated length of stay 2 midnights . The above impression and plan of care have been discussed and directed by signing physician. Reina Dueñas nurse practitioner acting as scribe for signing physician.
[2017-10-13] MEDS: INSULIN ASPART 100 UNIT/ML 1 ML 10 ML VIAL SQ SCH ×6 (12:41→21:05)
--- NOTE | 2017-10-13 13:09 | P.PN ---
Subjective Progress Note Date: 10/13/17 Principal diagnosis: Acute diabetic ketoacidosisNataliya Nettles is a 52-year-old white female patient presented to the emergency department on 10/12/2017 at 0201 with complaints of nausea, vomiting, abdominal pain, and diarrhea. Patient states she started having diarrhea 2 days ago. She has a history of diabetes mellitus type 2, chronic pancreatitis, recurrent DKA, H&H and cake, hypertension, chronic pain syndrome, hypertriglyceridemia, gastroparesis, severe GERD, anxiety, depression. Patient was having some epigastric and left upper quadrant discomfort. Denied any fever or chills, denied any shortness of breath, denying chest pain, dysuria, or hematuria, headaches, blurred vision. In the emergency room CBG was greater than 600, serum glucose was 721, CO2 was only 11, anion gap was elevated at 25, no leukocytosis, WBC was normal at 5.3, hemoglobin is 14.3, sodium is 136, potassium is 4.7, BUN is 13, creatinine 0.60. Asthma lactic acid was at 10.5, amylase was 127, lipase was 112, LFTs were within normal limits. Urinalysis showed 4+ glucose, and ketones. Serum acetone was negative. Patient has been afebrile, she was tachycardic on presentation, with heart rate in the 120s, currently down to 70 BPM. Blood pressure is 144/96, she is on room air with a pulse ox of 98%, no pulmonary complaints. 1 L bolus of 0.9 normal saline was given, insulin inffusion was started per DKA protocol, patient received additional IV fluids in the form of 0.9 normal saline at a rate of 200 for several hours, this has been switched to D5.45 with 20 of KCl at a rate of 150 ML per hour. Lactic acid subsequently went down to 7.2, and 4.5, after fluid boluses, and insulin infusion patient. No further vomiting or nausea, abdomen is soft, and nontender. Latest blood work from 1400 shows sodium of 141, potassium is 3.7, chloride is 108, CO2 is up to 19, anion gap is down to 14, BUN of 6, creatinine 0.50, and glucose of 167. Patient is seen in the emergency room, she is awaiting a bed in the intensive care, she is awake alert , in no acute distress, resting on the gurney comfortably. Vital signs are stable, no specific complaints at this time. We are consulted in regards to ICU management Reevaluated today on 10/13/2017, patient was still in the ICU during my evaluation, and she was doing well. Not in any form of distress, no nausea no vomiting no abdominal pain, no shortness of breath. Anion gap is down to normal. Lactic acid remains a bit elevated but she received another bolus of 0.9 normal saline. Renal profile is normal. Blood sugar seems to be well- controlled. Objective - Vital Signs Vital signs: Vital Signs Temp 97.1 F L 10/13/17 11:20 Pulse 67 10/13/17 11:20 Resp 18 10/13/17 11:20 BP 127/89 10/13/17 11:20 Pulse Ox 97 10/13/17 11:20 Intake & Output 10/12/17 10/13/17 10/13/17 18:59 06:59 18:59 Intake Total 2530 Balance 2530 Intake: IV 2350 D5-0.45% NaCl with KCl 450 20Meq/l 1,000 ml @ 150 mls/hr IV .Q6H40M [facility] Rx# :[id number] Magnesium Sulfate-D5w Pmx 200 1 gm In Dextrose/Water 1 100ml.bag @ 100 mls/hr IVPB Q1H [facility] Rx#: [id number] Potassium Chloride 10 meq 200 In Water For Injection 1 100ml.bag @ 100 mls/hr IVPB Q1H [facility] Rx#: [id number] Sodium Chloride 0.9% 1, 1000 000 ml @ 125 mls/hr IV . Q8H [facility] Rx#:[id number] Sodium Chloride 0.9% 500 500 ml @ 999 mls/hr IV .Q31M [facility] Rx#:[id number] Oral 180 Other: Voiding Method Toilet # Voids 1 - Exam GENERAL EXAM: Alert, pleasant, 52-year-old white female comfortable in no apparent distress, seen in the emergency department, resting on the stretcher HEAD: Normocephalic/atraumatic. EYES: Normal reaction of pupils, equal size. Conjunctiva pink, sclera white. NOSE: Clear with pink turbinates. THROAT: No erythema or exudates. NECK: No masses, no JVD, no thyroid enlargement, no adenopathy. CHEST: No chest wall deformity. Symmetrical expansion. LUNGS: Equal air entry with no crackles, wheeze, rhonchi or dullness. CVS: Regular rate and rhythm, normal S1 and S2, no gallops, no murmurs, no rubs ABDOMEN: Soft, nontender. No hepatosplenomegaly, normal bowel sounds, no guarding or rigidity. EXTREMITIES: No clubbing, no edema, no cyanosis, 2+ pulses and upper and lower extremities. MUSCULOSKELETAL: Muscle strength and tone normal. SPINE: No scoliosis or deformity SKIN: No rashes CENTRAL NERVOUS SYSTEM: Alert and oriented -3. No focal deficits, tone is normal in all 4 extremities. PSYCHIATRIC: Alert and oriented -3. Appropriate affect. Intact judgment and insight. - Labs CBC & Chem 7: 10/13/17 04:10 10/13/17 08:12 Labs: Abnormal Lab Results - Last 24 Hours (Table) 10/12/17 10/12/17 10/12/17 Range/Units 03:35 13:23 14:24 Plt Count (150-450) k/uL Chloride 108 H (98-107) mmol/L Carbon Dioxide 19 L (22-30) mmol/L BUN 6 L (7-17) mg/dL Creatinine 0.50 L (0.52-1.04) mg/dL Glucose 167 H (74-99) mg/dL POC Glucose (mg/dL) 209 H (75-99) mg/dL Plasma Lactic Acid Dawit (0.7-2.0) mmol/L Phosphorus (2.5-4.5) mg/dL AST (14-36) U/L Total Protein (6.3-8.2) g/dL Urine Glucose (UA) 4+ H (Negative) Urine Ketones 1+ H (Negative) 10/12/17 10/12/17 10/12/17 Range/Units 14:24 14:30 15:21 Plt Count (150-450) k/uL Chloride (98-107) mmol/L Carbon Dioxide (22-30) mmol/L BUN (7-17) mg/dL Creatinine (0.52-1.04) mg/dL Glucose (74-99) mg/dL POC Glucose (mg/dL) 161 H 129 H (75-99) mg/dL Plasma Lactic Acid Dawit 4.5 H* (0.7-2.0) mmol/L Phosphorus (2.5-4.5) mg/dL AST (14-36) U/L Total Protein (6.3-8.2) g/dL Urine Glucose (UA) (Negative) Urine Ketones (Negative) 10/12/17 10/12/17 10/12/17 Range/Units 16:32 17:04 18:45 Plt Count (150-450) k/uL Chloride (98-107) mmol/L Carbon Dioxide (22-30) mmol/L BUN (7-17) mg/dL Creatinine (0.52-1.04) mg/dL Glucose (74-99) mg/dL POC Glucose (mg/dL) 116 H 127 H 123 H (75-99) mg/dL Plasma Lactic Acid Dawit (0.7-2.0) mmol/L Phosphorus (2.5-4.5) mg/dL AST (14-36) U/L Total Protein (6.3-8.2) g/dL Urine Glucose (UA) (Negative) Urine Ketones (Negative) 10/12/17 10/12/17 10/12/17 Range/Units 19:49 20:16 20:16 Plt Count (150-450) k/uL Chloride 108 H (98-107) mmol/L Carbon Dioxide (22-30) mmol/L BUN 5 L (7-17) mg/dL Creatinine 0.50 L (0.52-1.04) mg/dL Glucose 125 H (74-99) mg/dL POC Glucose (mg/dL) 113 H (75-99) mg/dL Plasma Lactic Acid Dawit 2.7 H* (0.7-2.0) mmol/L Phosphorus (2.5-4.5) mg/dL AST (14-36) U/L Total Protein 5.9 L (6.3-8.2) g/dL Urine Glucose (UA) (Negative) Urine Ketones (Negative) 10/12/17 10/12/17 10/12/17 Range/Units 20:37 21:52 22:48 Plt Count (150-450) k/uL Chloride (98-107) mmol/L Carbon Dioxide (22-30) mmol/L BUN (7-17) mg/dL Creatinine (0.52-1.04) mg/dL Glucose (74-99) mg/dL POC Glucose (mg/dL) 136 H 150 H 176 H (75-99) mg/dL Plasma Lactic Acid Dawit (0.7-2.0) mmol/L Phosphorus (2.5-4.5) mg/dL AST (14-36) U/L Total Protein (6.3-8.2) g/dL Urine Glucose (UA) (Negative) Urine Ketones (Negative) 10/12/17 10/13/17 10/13/17 Range/Units 23:42 00:32 00:36 Plt Count (150-450) k/uL Chloride (98-107) mmol/L Carbon Dioxide (22-30) mmol/L BUN (7-17) mg/dL Creatinine (0.52-1.04) mg/dL Glucose (74-99) mg/dL POC Glucose (mg/dL) 155 H 145 H (75-99) mg/dL Plasma Lactic Acid Dawit 2.8 H* (0.7-2.0) mmol/L Phosphorus (2.5-4.5) mg/dL AST (14-36) U/L Total Protein (6.3-8.2) g/dL Urine Glucose (UA) (Negative) Urine Ketones (Negative) 10/13/17 10/13/17 10/13/17 Range/Units 01:56 03:03 03:55 Plt Count (150-450) k/uL Chloride (98-107) mmol/L Carbon Dioxide (22-30) mmol/L BUN (7-17) mg/dL Creatinine (0.52-1.04) mg/dL Glucose (74-99) mg/dL POC Glucose (mg/dL) 135 H 132 H 128 H (75-99) mg/dL Plasma Lactic Acid Dawit (0.7-2.0) mmol/L Phosphorus (2.5-4.5) mg/dL AST (14-36) U/L Total Protein (6.3-8.2) g/dL Urine Glucose (UA) (Negative) Urine Ketones (Negative) 10/13/17 10/13/17 10/13/17 Range/Units 04:10 04:10 04:10 Plt Count 133 L (150-450) k/uL Chloride 109 H (98-107) mmol/L Carbon Dioxide 21 L (22-30) mmol/L BUN 4 L (7-17) mg/dL Creatinine 0.50 L (0.52-1.04) mg/dL Glucose 139 H (74-99) mg/dL POC Glucose (mg/dL) (75-99) mg/dL Plasma Lactic Acid Dawit 3.4 H* (0.7-2.0) mmol/L Phosphorus (2.5-4.5) mg/dL AST 47 H (14-36) U/L Total Protein 5.8 L (6.3-8.2) g/dL Urine Glucose (UA) (Negative) Urine Ketones (Negative) 10/13/17 10/13/17 10/13/17 Range/Units 04:57 06:05 07:11 Plt Count (150-450) k/uL Chloride (98-107) mmol/L Carbon Dioxide (22-30) mmol/L BUN (7-17) mg/dL Creatinine (0.52-1.04) mg/dL Glucose (74-99) mg/dL POC Glucose (mg/dL) 146 H 175 H 197 H (75-99) mg/dL Plasma Lactic Acid Dawit (0.7-2.0) mmol/L Phosphorus (2.5-4.5) mg/dL AST (14-36) U/L Total Protein (6.3-8.2) g/dL Urine Glucose (UA) (Negative) Urine Ketones (Negative) 10/13/17 10/13/17 10/13/17 Range/Units 07:56 08:12 08:12 Plt Count (150-450) k/uL Chloride 111 H (98-107) mmol/L Carbon Dioxide (22-30) mmol/L BUN 3 L (7-17) mg/dL Creatinine (0.52-1.04) mg/dL Glucose 186 H (74-99) mg/dL POC Glucose (mg/dL) 169 H (75-99) mg/dL Plasma Lactic Acid Dawit 3.0 H* (0.7-2.0) mmol/L Phosphorus 2.1 L (2.5-4.5) mg/dL AST (14-36) U/L Total Protein (6.3-8.2) g/dL Urine Glucose (UA) (Negative) Urine Ketones (Negative) 10/13/17 10/13/17 10/13/17 Range/Units 09:03 10:00 10:55 Plt Count (150-450) k/uL Chloride (98-107) mmol/L Carbon Dioxide (22-30) mmol/L BUN (7-17) mg/dL Creatinine (0.52-1.04) mg/dL Glucose (74-99) mg/dL POC Glucose (mg/dL) 191 H 204 H 188 H (75-99) mg/dL Plasma Lactic Acid Dawit (0.7-2.0) mmol/L Phosphorus (2.5-4.5) mg/dL AST (14-36) U/L Total Protein (6.3-8.2) g/dL Urine Glucose (UA) (Negative) Urine Ketones (Negative) 10/13/17 10/13/17 Range/Units 11:51 12:15 Plt Count (150-450) k/uL Chloride (98-107) mmol/L Carbon Dioxide (22-30) mmol/L BUN (7-17) mg/dL Creatinine (0.52-1.04) mg/dL Glucose (74-99) mg/dL POC Glucose (mg/dL) 201 H (75-99) mg/dL Plasma Lactic Acid Dawit 2.9 H* (0.7-2.0) mmol/L Phosphorus (2.5-4.5) mg/dL AST (14-36) U/L Total Protein (6.3-8.2) g/dL Urine Glucose (UA) (Negative) Urine Ketones (Negative) Assessment and Plan Assessment: #1. Acute hyperglycemia without evidence of ketosis, serum acetone was negative. Patient presented with a blood sugar of 721, lactic acidosis. As such patient is likely in the hyperosmolar nonketotic state #2. Anion gap metabolic acidosis secondary to lactic acidosis #3. Mild epigastric discomfort, nausea vomiting and diarrhea prior to presentation, lipase was negative, and amylase only slightly elevated at 127. Abdomen is soft, nontender with positive bowel sounds. #4. Diabetes mellitus type 2, with multiple recurrent hospitalizations for DKA #5. Hypertension, hyperlipidemia #6. Chronic pancreatitis with previous ERCP and biliary stenting and subsequent removal at the [facility] in 2007 #7. History of hypertriglyceridemia #8. Anxiety, depression, panic disorder PTSD #9. Diabetic gastroparesis #10. Peripheral neuropathy #11. Chronic pain syndrome Recommendation: Continue present meds, patient could be switched to subcu insulin, follow the protocol, or start the patient on her usual doses of NovoLog insulin and Levemir insulin. Can transfer the patient out of the ICU, will follow on when necessary basis. Time with Patient: Less than 30
[2017-10-13 14:40] VITALS: BMI 24.3
[2017-10-13 18:03] LABS: Glucose,Whole Blood 127 mg/dL (75-99)
[2017-10-13 20:22] LABS: Anion Gap 9 mmol/L; Blood Urea Nitrogen 2 mg/dL (7-17); Carbon Dioxide 23 mmol/L (22-30); Chloride 108 mmol/L (98-107); Glucose 158 mg/dL (74-99); Magnesium 1.7 mg/dL (1.6-2.3); Potassium 4.2 mmol/L (3.5-5.1); Sodium 140 mmol/L (137-145)
[2017-10-13 20:37] LABS: Glucose,Whole Blood 137 mg/dL (75-99)
[2017-10-13] MEDS ORDERED: clonazePAM 1 MG TAB PO SCH (21:00)
[2017-10-13] MEDS: NIACIN TR 500 MG CAPSULE.ER PO SCH (21:04)
[2017-10-13] MEDS: ATORVASTATIN 80 MG TAB PO SCH (21:04)
[2017-10-13] MEDS: MIRTAZAPINE 45 MG TABLET PO SCH (21:05)
[2017-10-13 23:28] VITALS: RESP 16
[2017-10-14] MEDS: D5-0.45% NACL WITH KCL 20MEQ/L 1,000 ML IV SCH ×4 (03:37→15:47)
[2017-10-14] MEDS: MORPHINE SULFATE 2 MG/ML SYRINGE IVP PRN ×3 (04:16→13:27)
[2017-10-14 07:30] LABS: Glucose,Whole Blood 194 mg/dL (75-99)
[2017-10-14] MEDS ORDERED: INSULIN ASPART 100 UNIT/ML 1 ML 10 ML VIAL SQ SCH (07:30)
[2017-10-14 07:54] LABS: Basophils % (A) 0 %; Eosinophils # (A) 0.1 k/uL (0-0.7); Eosinophils % (A) 2 %; HCT 40.5 % (34.0-46.0); HGB 13.8 gm/dL (11.4-16.0); Lymphocytes % (A) 43 %; MCH 30.7 pg (25.0-35.0); MCHC 34.1 g/dL (31.0-37.0); Monocytes # (A) 0.4 k/uL (0-1.0); Monocytes % (A) 6 %; Neutrophils # (A) 3.3 k/uL (1.3-7.7); Neutrophils % (A) 47 %; Platelet Count 166 k/uL (150-450); RDW 13.2 % (11.5-15.5)
[2017-10-14] MEDS: METOCLOPRAMIDE 5 MG TAB PO SCH ×3 (08:06→17:53)
[2017-10-14] MEDS: LISINOPRIL 20 MG TAB PO SCH (08:06)
[2017-10-14] MEDS: SERTRALINE 100 MG TAB PO SCH (08:06)
[2017-10-14] MEDS: GEMFIBROZIL 600 MG TAB PO SCH ×2 (08:07→17:53)
[2017-10-14] MEDS: GABAPENTIN 100 MG CAP PO SCH (08:07)
[2017-10-14] MEDS: INSULIN ASPART 100 UNIT/ML 1 ML 10 ML VIAL SQ SCH ×7 (08:07→17:51)
[2017-10-14] MEDS: CALCIUM CARB-VIT D 500MG-200UN 1 EACH TAB PO SCH (08:07)
[2017-10-14] MEDS: ATENOLOL 50 MG TAB PO SCH (08:07)
[2017-10-14] MEDS: [UNRECOGNIZED DRUG - OTHER] PO SCH ×3 (08:08→17:07)
[2017-10-14 08:10] LABS: ALT 220 U/L (9-52); AST 230 U/L (14-36); Albumin 3.5 g/dL (3.5-5.0); Alkaline Phosphatase 147 U/L (38-126); Anion Gap 9 mmol/L; Blood Urea Nitrogen 8 mg/dL (7-17); Calcium 9.5 mg/dL (8.4-10.2); Carbon Dioxide 25 mmol/L (22-30); Chloride 108 mmol/L (98-107); Glucose 194 mg/dL (74-99); Magnesium 1.6 mg/dL (1.6-2.3); Phosphorus 3.8 mg/dL (2.5-4.5); Potassium 4.7 mmol/L (3.5-5.1); Sodium 142 mmol/L (137-145); Total Bilirubin 1.2 mg/dL (0.2-1.3); Total Protein 5.6 g/dL (6.3-8.2)
[2017-10-14] MEDS: INSULIN DETEMIR 100 UNIT/ML 10 ML VIAL SQ SCH (08:46)
[2017-10-14] MEDS ORDERED: clonazePAM 1 MG TAB PO SCH (09:00)
--- NOTE | 2017-10-14 12:29 | P.DS ---
Providers Date of admission: 10/12/17 05:39 Attending physician: Mike Borges Consults: 10/12/17 15:34 Consult Physician Stat Consulting Provider: Segundo Caputo Reason/Comments: dka Do you want consulting provider notified?: Already Contacted Placement Type Exists?: Yes Primary care physician: Mike Borges Hospital Course: This is a 52-year-old female patient of Dr. Borges with previous medical history significant for familial dyslipidemia, recurrent pancreatitis and chroni abdominal pain, thought to be due to hypertriglyceridemia, hypertension and hypertensive cardiovascular disease, diabetes mellitus type 2 with recurrent diabetic ketoacidosis as well as episodes of hyperosmolar nonketotic hyperglycemia, hypertensive cardiovascular disease, chronic pain syndrome, gastroparesis, gastroesophageal reflux disease, diabetic polyneuropathy. patient states she developed diarrhea with cramping so she ended up driving herself to the emergency department at around 3:00 in the morning and she was found to have elevated blood glucose level at 6 or 60, with elevated lactic acid at 10, she was started on insulin drip and IV fluid and she was admitted to the hospital for evaluation. 10/13: Patient evaluated in the ICU today, patient's doing much better her gap has closed and is 10. Insulin drip was discontinued and changed to NovoLog 13 units before meals 3 times a day, 18 units with supper, Levemir twice a day 33 units. She is tolerating a full liquid diet with no nausea or vomiting. She' ll be transferred out of the ICU to Med/Surg. discharge diagnosis: 1. DKA with hyperosmolar hyperglycemia. 2. History of diabetes mellitus type 2. 3. Hypertension and hypertensive cardiovascular disease with left ventricular hypertrophy . 4. Hyperlipidemia . 5. Diabetic polyneuropathy. 6. Anxiety generalized disorder. 7. Depression, recurrent. 8. Gastroparesis . 9. Chronic pancreatitis 10. GERD Patient Condition at Discharge: Good Plan - Discharge Summary Discharge Rx Participant: No New Discharge Prescriptions: New clonazePAM [KlonoPIN] 1 mg PO DAILY tab clonazePAM [KlonoPIN] 2 mg PO HS tab Continue Lisinopril [Zestril] 20 mg PO DAILY Gabapentin [Neurontin] 200 mg PO BID cap Sertraline [Zoloft] 200 mg PO DAILY tab HYDROmorphone [Dilaudid] 2 mg PO Q12H PRN PRN Reason: Pain Multivitamins, Thera [Multivitamin (formulary)] 1 tab PO DAILY Calcium Carb-Vit D 500Mg-200Un [Oscal 500+D] 1 tab PO BID Atenolol [Tenormin] 100 mg PO DAILY Mirtazapine [Remeron] 45 mg PO HS Rosuvastatin Calcium [Crestor] 40 mg PO HS fentaNYL 25MCG/HR PATCH [Duragesic 25MCG/HR] 1 patch TRANSDERM Q72H #0 Insulin Aspart [NovoLOG Flexpen] 36 units SQ AC-SUPPER Insulin Aspart [NovoLOG Flexpen] 26 unit SQ AC-BRKFST Insulin Aspart [NovoLOG Flexpen] 26 unit SQ AC-LUNCH Pancreatic Enzymes Otc(Unknown) 1 cap PO AC-TID Niacin 1,000 mg PO HS Insulin Detemir [Levemir] 66 unit SQ HS Gemfibrozil [Lopid] 600 mg PO AC-BID Metoclopramide [Reglan] 5 mg PO QID Discharge Medication List Lisinopril [Zestril] 20 mg PO DAILY 09/09/13 [History] Gabapentin [Neurontin] 200 mg PO BID cap 08/09/14 [Rx] Sertraline [Zoloft] 200 mg PO DAILY tab 08/09/14 [Rx] HYDROmorphone [Dilaudid] 2 mg PO Q12H PRN 09/17/14 [History] Multivitamins, Thera [Multivitamin (formulary)] 1 tab PO DAILY 09/17/14 [History ] Atenolol [Tenormin] 100 mg PO DAILY 11/19/14 [History] Calcium Carb-Vit D 500Mg-200Un [Oscal 500+D] 1 tab PO BID 11/19/14 [History] Mirtazapine [Remeron] 45 mg PO HS 11/19/14 [History] Rosuvastatin Calcium [Crestor] 40 mg PO HS 11/19/14 [History] fentaNYL 25MCG/HR PATCH [Duragesic 25MCG/HR] 1 patch TRANSDERM Q72H #0 07/10/15 [Rx] Insulin Aspart [NovoLOG Flexpen] 26 unit SQ AC-BRKFST 10/14/15 [History] Insulin Aspart [NovoLOG Flexpen] 26 unit SQ AC-LUNCH 10/14/15 [History] Insulin Aspart [NovoLOG Flexpen] 36 units SQ AC-SUPPER 10/14/15 [History] Pancreatic Enzymes Otc(Unknown) 1 cap PO AC-TID 10/14/15 [History] Niacin 1,000 mg PO HS 02/04/16 [History] Insulin Detemir [Levemir] 66 unit SQ HS 07/21/16 [History] Gemfibrozil [Lopid] 600 mg PO AC-BID 07/02/17 [History] Metoclopramide [Reglan] 5 mg PO QID 10/12/17 [History] clonazePAM [KlonoPIN] 1 mg PO DAILY tab 10/14/17 [Rx] clonazePAM [KlonoPIN] 2 mg PO HS tab 10/14/17 [Rx] Follow up Appointment(s)/Referral(s): Mike Borges MD [Primary Care Provider] - 1-2 days
[2017-10-14 12:44] LABS: Glucose,Whole Blood 172 mg/dL (75-99)
[2017-10-14] MEDS: MULTIVITAMINS, THERA 1 EACH TAB PO SCH (13:27)
[2017-10-14 15:55] VITALS: BP 114/58; PULSE 81; TEMP 100.7
[2017-10-14 17:47] LABS: Glucose,Whole Blood 129 mg/dL (75-99)
== END 2017-10-14 21:15 | disposition home or self-care (01) | DRG 638 ==
LOC: EC 02:01 → 6ICU 05:39 → 4MS4W 10-13 11:15
PROVIDERS: ADMIT Internal Medicine; ATTEND Internal Medicine
DX: E11.10 Type 2 diabetes mellitus with ketoacidosis without coma (principal); E87.0 Hyperosmolality and hypernatremia; K86.1 Other chronic pancreatitis; E11.42 Type 2 diabetes mellitus with diabetic polyneuropathy; E11.43 Type 2 diabetes mellitus with diabetic autonomic (poly)neuropathy; E78.1 Pure hyperglyceridemia; E78.5 Hyperlipidemia, unspecified; E86.0 Dehydration; F32.9 Major depressive disorder, single episode, unspecified; F41.0 Panic disorder [episodic paroxysmal anxiety]; F41.1 Generalized anxiety disorder; F43.10 Post-traumatic stress disorder, unspecified; G89.4 Chronic pain syndrome; I11.9 Hypertensive heart disease without heart failure; I25.10 Atherosclerotic heart disease of native coronary artery without angina pectoris; K21.9 Gastro-esophageal reflux disease without esophagitis; K31.84 Gastroparesis; Z79.4 Long term (current) use of insulin; Z79.899 Other long term (current) drug therapy; Z80.3 Family history of malignant neoplasm of breast; Z83.3 Family history of diabetes mellitus; Z88.6 Allergy status to analgesic agent; Z16.24 Resistance to multiple antibiotics; F40.240 Claustrophobia
CPT/HCPCS: 36415; 80048; 80051; 80053; 81003; 82009; 82150; 82565; 82947; 83605; 83690; 83735; 84100; 84520; 85025; 96374; 99284

== ENCOUNTER 2017-12-07 04:00 | Inpatient (IN) | payer MEDICARE ==
[2017-12-07 04:13] LABS: Glucose,Whole Blood >600 mg/dL (75-99)
[2017-12-07] MEDS ORDERED: SODIUM CHLORIDE 0.9% 1,000 ML IV STA (04:13)
[2017-12-07] MEDS ORDERED: SODIUM CHLORIDE 0.9% 2,000 ML IV STA (04:13)
--- NOTE | 2017-12-07 04:30 | ED ---
General Adult HPI - General Chief complaint: Abdominal Pain Stated complaint: NVD Time Seen by Provider: 12/07/17 04:11 Source: patient Mode of arrival: ambulatory Limitations: no limitations - History of Present Illness Initial comments: Isaac is a 52-year-old female with extensive past medical history most significant for insulin-dependent diabetes who presents to the ED today for evaluation of hyperglycemia that she noted tonight as well as 2 days of nausea, vomiting and diarrhea. The patient reports that she has a history of chronic pancreatitis, she states that due to that she has episodes of abdominal pain and nausea and vomiting. She reports that 2 days ago she developed some epigastric abdominal pain, nausea and vomiting as well as diarrhea. She reports that the symptoms progressively worsened 2 days and by dinnertime last night she was not able to eat or drink anything so she chose not to give herself insulin. It is unclear when the patient last gave herself insulin, on initial exam she reported that she had not given himself insulin since she developed the nausea and vomiting, however upon repeat exam the patient stated that she only withheld her dinnertime dose of insulin but gave herself her long-acting night insulin. When questioned for clarification the patient stated that she cannot recall which insulin she had given herself. She reports that she's been checking her sugar regularly and noted that throughout the day continued to increase and by nighttime it was simply reading high, she didn't want to give herself insulin because she wasn't eating or drinking so she came to the ER for evaluation. The patient states that she has a history of lactic acidosis in the past, she has underwent a very thorough evaluation's without any specific diagnosis as to the cause of her lactic acidosis. Patient denies any fevers, chills, chest pain or shortness of breath. - Related Data Home Medications Medication Instructions Recorded Confirmed Lisinopril [Zestril] 20 mg PO DAILY 09/09/13 10/12/17 HYDROmorphone [Dilaudid] 2 mg PO Q12H PRN 09/17/14 10/12/17 Multivitamins, Thera [Multivitamin 1 tab PO DAILY 09/17/14 10/12/17 (formulary)] Atenolol [Tenormin] 100 mg PO DAILY 11/19/14 10/12/17 Calcium Carb-Vit D 500Mg-200Un 1 tab PO BID 11/19/14 10/12/17 [Oscal 500+D] Mirtazapine [Remeron] 45 mg PO HS 11/19/14 10/12/17 Rosuvastatin Calcium [Crestor] 40 mg PO HS 11/19/14 10/12/17 Insulin Aspart [NovoLOG Flexpen] 26 unit SQ AC-BRKFST 10/14/15 10/12/17 Insulin Aspart [NovoLOG Flexpen] 26 unit SQ AC-LUNCH 10/14/15 10/12/17 Insulin Aspart [NovoLOG Flexpen] 36 units SQ AC-SUPPER 10/14/15 10/12/17 Pancreatic Enzymes Otc(Unknown) 1 cap PO AC-TID 10/14/15 10/12/17 Niacin 1,000 mg PO HS 02/04/16 10/12/17 Insulin Detemir [Levemir] 66 unit SQ HS 07/21/16 10/12/17 Gemfibrozil [Lopid] 600 mg PO AC-BID 07/02/17 10/12/17 Metoclopramide [Reglan] 5 mg PO QID 10/12/17 10/12/17 Previous Rx's Medication Instructions Recorded Gabapentin [Neurontin] 200 mg PO BID cap 08/09/14 Sertraline [Zoloft] 200 mg PO DAILY tab 08/09/14 fentaNYL 25MCG/HR PATCH [Duragesic 1 patch TRANSDERM Q72H #0 07/10/15 25MCG/HR] clonazePAM [KlonoPIN] 1 mg PO DAILY tab 10/14/17 clonazePAM [KlonoPIN] 2 mg PO HS tab 10/14/17 Allergies Allergy/AdvReac Type Severity Reaction Status Date / Time NSAIDS (Non-Steroidal Allergy Rash/Hives Verified 12/07/17 04:05 Anti-Inflamma Review of Systems ROS Statement: Those systems with pertinent positive or pertinent negative responses have been documented in the HPI. ROS Other: All systems not noted in ROS Statement are negative. Past Medical History Past Medical History: Coronary Artery Disease (CAD), Diabetes Mellitus, GERD/ Reflux, Hyperlipidemia, Hypertension, Syncope Additional Past Medical History / Comment(s): IDDM type II, recurrent DKA, episodes of hyperosmolar nonketonic hyperglycemia, hypertensive heart disease, chronic pain syndrome, hypertriglyceridemia, chronic pancreatitis, chronic abdominal pain, gastroparesis, severe GERD, diabetic polyneuropathy mostly in hands and alittle in feet bilaterally, infectious colitis. History of Any Multi-Drug Resistant Organisms: C-DIFF Date of last positivie culture/infection: pt. unsure MDRO Source:: stool Past Surgical History: Cholecystectomy Additional Past Surgical History / Comment(s): Biliary stent through an ERCP that was performed at [facility] and stent removed 2007, lap jenn, colonoscopy, ERCP. Past Anesthesia/Blood Transfusion Reactions: No Reported Reaction Additional Past Anesthesia/Blood Transfusion Reaction / Comment(s): Pt has never received blood."CLAUSTERPHOBIA" Past Psychological History: Anxiety, Depression, Panic Disorder, PTSD Smoking Status: Never smoker Past Alcohol Use History: Rare Past Drug Use History: None Reported - Past Family History Sister(s) Additional Family Medical History / Comment(s): Patient has 2 sisters with no major medical problems. Daughter(s) Additional Family Medical History / Comment(s): Patient has 2 daughters and one had mitral valve replacement. Son(s) Additional Family Medical History / Comment(s): She has one son with no major medical problems. Brother(s) Additional Family Medical History / Comment(s): Does not have any brothers. Father Family Medical History: No Reported History Additional Family Medical History / Comment(s): Father is 79 years of age with severe anxiety and was hospitalized for this at times. Mother Family Medical History: Cancer Additional Family Medical History / Comment(s): Mother of metastatic breast CA at the age of 42yrs. pt. states her grandmother had diabetes as well General Exam Limitations: no limitations General appearance: alert, in no apparent distress Head exam: Present: atraumatic, normocephalic Eye exam: Present: normal appearance ENT exam: Present: mucous membranes dry Respiratory exam: Absent: respiratory distress Cardiovascular Exam: Present: normal rhythm, tachycardia GI/Abdominal exam: Present: soft. Absent: distended Rectal exam: Present: deferred Extremities exam: Present: normal capillary refill. Absent: pedal edema Back exam: Present: full ROM Neurological exam: Present: alert, oriented X3 Psychiatric exam: Present: other (odd affect) Skin exam: Present: warm, dry Course Vital Signs 12/07/17 04:02 Temperature 97.9 F Pulse Rate 111 H Respiratory 18 Rate Blood Pressure 143/85 O2 Sat by Pulse 99 Oximetry - Reevaluation(s) Reevaluation #1: She was updated on labs and plan for admission the patient is agreeable 12/07/17 06:39 EKG Findings - EKG Comments: EKG Findings:: EKG obtained at 4:44 AM reveals a normal sinus rhythm with a rate of 95, normal axis, normal intervals, no acute ST elevations or depressions. No evidence of acute ischemia or infarction. Medical Decision Making - Medical Decision Making The patient was seen and evaluated, history was obtained from the patient and review of medical record On my initial evaluation the patient is in no acute distress, rather than providing me with any personal medical history the patient provided me a very long story of her daughters medical history and the robotic mitral valve replacement surgery she had. Patient was resting comfortably and in no distress telling me the story. Patient required redirection multiple times for me to obtain a history, and was a poor historian as far as her insulin dosages, times and compliance. Patient with history of insulin-dependent diabetes, 2 days of nausea vomiting and diarrhea, decreased by mouth intake, decrease insulin use though she is very inconsistent in her report of when and how much insulin she has taken DKA workup was initiated IV fluid resuscitation was ordered Labs reveal hyperglycemia, elevated anion gap, however acetones are negative Lactic acid is significantly elevated at greater than 9 Insulin bolus and infusion as well as IV fluids were ordered Patient was updated on findings and is agreeable to plan for admission Patient care was discussed with her primary care physician Dr. Borges as well as the terrazzo polisher Dr. Dr. Berry who both agree with plan for admission and treatment for hyperglycemia and metabolic acidosis DKA order set was initiated and patient was admitted - Lab Data Result diagrams: 12/07/17 04:30 12/07/17 04:30 Lab Results 12/07/17 12/07/17 12/07/17 Range/Units 04:09 04:30 04:30 WBC 3.9 (3.8-10.6) k/uL RBC 4.73 (3.80-5.40) m/uL Hgb 13.6 (11.4-16.0) gm/dL Hct 45.0 (34.0-46.0) % MCV 95.1 D (80.0-100.0) fL MCH 28.7 (25.0-35.0) pg MCHC 30.2 L (31.0-37.0) g/dL RDW 13.1 (11.5-15.5) % Plt Count 163 (150-450) k/uL Neutrophils % 81 % Lymphocytes % 17 % Monocytes % 2 % Eosinophils % 0 % Basophils % 0 % Neutrophils # 3.2 (1.3-7.7) k/uL Lymphocytes # 0.7 L (1.0-4.8) k/uL Monocytes # 0.1 (0-1.0) k/uL Eosinophils # 0.0 (0-0.7) k/uL Basophils # 0.0 (0-0.2) k/uL Hypochromasia Slight VBG pH (7.31-7.41) VBG pCO2 (37-51) mmHg VBG HCO3 (24-28) mmol/L Sodium 132 L (137-145) mmol/L Potassium 4.7 (3.5-5.1) mmol/L Chloride 94 L (98-107) mmol/L Carbon Dioxide 16 L (22-30) mmol/L Anion Gap 22 mmol/L BUN 13 (7-17) mg/dL Creatinine 0.60 (0.52-1.04) mg/dL Est GFR (CKD-EPI)AfAm >90 (>60 ml/min/1.73 sqM) Est GFR (CKD-EPI)NonAf >90 (>60 ml/min/1.73 sqM) Glucose 908 H* (74-99) mg/dL POC Glucose (mg/dL) >600 H (75-99) mg/dL POC Glu Quality Control Assistant ID Michelle Natarajan Plasma Lactic Acid [place] (0.7-2.0) mmol/L Calcium 10.0 (8.4-10.2) mg/dL Magnesium 2.0 (1.6-2.3) mg/dL Total Bilirubin 0.6 (0.2-1.3) mg/dL AST 46 H (14-36) U/L ALT 35 (9-52) U/L Alkaline Phosphatase 129 H (38-126) U/L Troponin I (0.000-0.034) ng/mL Total Protein 7.3 (6.3-8.2) g/dL Albumin 4.9 (3.5-5.0) g/dL Lipase 75 (23-300) U/L Urine Color Urine Appearance (Clear) Urine pH (5.0-8.0) Ur Specific [place] (1.001-1.035) Urine Protein (Negative) Urine Glucose (UA) (Negative) Urine Ketones (Negative) Urine Blood (Negative) Urine Nitrite (Negative) Urine Bilirubin (Negative) Urine Urobilinogen (<2.0) mg/dL Ur Leukocyte Esterase (Negative) Acetone, Qual Negative (Negative) 12/07/17 12/07/17 12/07/17 Range/Units 04:30 04:30 04:40 WBC (3.8-10.6) k/uL RBC (3.80-5.40) m/uL Hgb (11.4-16.0) gm/dL Hct (34.0-46.0) % MCV (80.0-100.0) fL MCH (25.0-35.0) pg MCHC (31.0-37.0) g/dL RDW (11.5-15.5) % Plt Count (150-450) k/uL Neutrophils % % Lymphocytes % % Monocytes % % Eosinophils % % Basophils % % Neutrophils # (1.3-7.7) k/uL Lymphocytes # (1.0-4.8) k/uL Monocytes # (0-1.0) k/uL Eosinophils # (0-0.7) k/uL Basophils # (0-0.2) k/uL Hypochromasia VBG pH (7.31-7.41) VBG pCO2 (37-51) mmHg VBG HCO3 (24-28) mmol/L Sodium (137-145) mmol/L Potassium (3.5-5.1) mmol/L Chloride (98-107) mmol/L Carbon Dioxide (22-30) mmol/L Anion Gap mmol/L BUN (7-17) mg/dL Creatinine (0.52-1.04) mg/dL Est GFR (CKD-EPI)AfAm (>60 ml/min/1.73 sqM) Est GFR (CKD-EPI)NonAf (>60 ml/min/1.73 sqM) Glucose (74-99) mg/dL POC Glucose (mg/dL) (75-99) mg/dL POC Glu Quality Control Assistant ID Plasma Lactic Acid [place] 9.7 H* (0.7-2.0) mmol/L Calcium (8.4-10.2) mg/dL Magnesium (1.6-2.3) mg/dL Total Bilirubin (0.2-1.3) mg/dL AST (14-36) U/L ALT (9-52) U/L Alkaline Phosphatase (38-126) U/L Troponin I <0.012 (0.000-0.034) ng/mL Total Protein (6.3-8.2) g/dL Albumin (3.5-5.0) g/dL Lipase (23-300) U/L Urine Color Colorless Urine Appearance Clear (Clear) Urine pH 5.0 (5.0-8.0) Ur Specific [place] 1.021 (1.001-1.035) Urine Protein Negative (Negative) Urine Glucose (UA) 4+ H (Negative) Urine Ketones Negative (Negative) Urine Blood Negative (Negative) Urine Nitrite Negative (Negative) Urine Bilirubin Negative (Negative) Urine Urobilinogen <2.0 (<2.0) mg/dL Ur Leukocyte Esterase Negative (Negative) Acetone, Qual (Negative) 12/07/17 Range/Units 06:10 WBC (3.8-10.6) k/uL RBC (3.80-5.40) m/uL Hgb (11.4-16.0) gm/dL Hct (34.0-46.0) % MCV (80.0-100.0) fL MCH (25.0-35.0) pg MCHC (31.0-37.0) g/dL RDW (11.5-15.5) % Plt Count (150-450) k/uL Neutrophils % % Lymphocytes % % Monocytes % % Eosinophils % % Basophils % % Neutrophils # (1.3-7.7) k/uL Lymphocytes # (1.0-4.8) k/uL Monocytes # (0-1.0) k/uL Eosinophils # (0-0.7) k/uL Basophils # (0-0.2) k/uL Hypochromasia VBG pH 7.31 (7.31-7.41) VBG pCO2 39 (37-51) mmHg VBG HCO3 19 L (24-28) mmol/L Sodium (137-145) mmol/L Potassium (3.5-5.1) mmol/L Chloride (98-107) mmol/L Carbon Dioxide (22-30) mmol/L Anion Gap mmol/L BUN (7-17) mg/dL Creatinine (0.52-1.04) mg/dL Est GFR (CKD-EPI)AfAm (>60 ml/min/1.73 sqM) Est GFR (CKD-EPI)NonAf (>60 ml/min/1.73 sqM) Glucose (74-99) mg/dL POC Glucose (mg/dL) (75-99) mg/dL POC Glu Quality Control Assistant ID Plasma Lactic Acid [place] (0.7-2.0) mmol/L Calcium (8.4-10.2) mg/dL Magnesium (1.6-2.3) mg/dL Total Bilirubin (0.2-1.3) mg/dL AST (14-36) U/L ALT (9-52) U/L Alkaline Phosphatase (38-126) U/L Troponin I (0.000-0.034) ng/mL Total Protein (6.3-8.2) g/dL Albumin (3.5-5.0) g/dL Lipase (23-300) U/L Urine Color Urine Appearance (Clear) Urine pH (5.0-8.0) Ur Specific [place] (1.001-1.035) Urine Protein (Negative) Urine Glucose (UA) (Negative) Urine Ketones (Negative) Urine Blood (Negative) Urine Nitrite (Negative) Urine Bilirubin (Negative) Urine Urobilinogen (<2.0) mg/dL Ur Leukocyte Esterase (Negative) Acetone, Qual (Negative) Disposition Clinical Impression: Diabetes mellitus type 2 in nonobese, Lactic acidosis, Gastroenteritis, High anion gap metabolic acidosis Disposition: ADMITTED IP TO THIS [facility] Condition: Fair Decision Time: 06:43
[2017-12-07] MEDS ORDERED: MORPHINE SULFATE 2 MG/ML SYRINGE IVP STA (04:54)
[2017-12-07] MEDS ORDERED: ONDANSETRON 4 MG/2 ML VIAL IVP STA (04:54)
[2017-12-07 05:00] LABS: Appearance,Urine Clear (Clear); Bilirubin,Urine Negative (Negative); Blood,Urine Negative (Negative); Color,Urine Colorless; Glucose,Urine (UA) 4+ (Negative); Ketones,Urine Negative (Negative); Leukocyte Esterase,Urine Negative (Negative); Nitrite,Urine Negative (Negative); Protein,Urine Negative (Negative); Specific Gravity,Urine 1.021 (1.001-1.035); Urobilinogen,Urine <2.0 mg/dL (<2.0)
[2017-12-07 05:11] LABS: ALT 35 U/L (9-52); Albumin 4.9 g/dL (3.5-5.0); Alkaline Phosphatase 129 U/L (38-126); Anion Gap 22 mmol/L; Blood Urea Nitrogen 13 mg/dL (7-17); Carbon Dioxide 16 mmol/L (22-30); Chloride 94 mmol/L (98-107); Lipase 75 U/L (23-300); Potassium 4.7 mmol/L (3.5-5.1); Sodium 132 mmol/L (137-145); Total Bilirubin 0.6 mg/dL (0.2-1.3); Total Protein 7.3 g/dL (6.3-8.2)
[2017-12-07 05:17] LABS: AST 46 U/L (14-36)
[2017-12-07 05:24] LABS: Basophils % (A) 0 %; Eosinophils % (A) 0 %; HGB 13.6 gm/dL (11.4-16.0); Hypochromasia Slight; Lymphocytes # (A) 0.7 k/uL (1.0-4.8); Lymphocytes % (A) 17 %; MCH 28.7 pg (25.0-35.0); MCHC 30.2 g/dL (31.0-37.0); Mean Platelet Volume 6.5; Monocytes # (A) 0.1 k/uL (0-1.0); Monocytes % (A) 2 %; Neutrophils # (A) 3.2 k/uL (1.3-7.7); Neutrophils % (A) 81 %; Platelet Count 163 k/uL (150-450); RBC 4.73 m/uL (3.80-5.40); RDW 13.1 % (11.5-15.5); WBC 3.9 k/uL (3.8-10.6)
[2017-12-07 05:30] LABS: MCV 95.1 fL (80.0-100.0)
[2017-12-07 05:38] LABS: Glucose 908 mg/dL (74-99)
[2017-12-07] MEDS ORDERED: INSULIN REGULAR BOLUS (FROM DRIP BAG) IV ONE (05:50)
[2017-12-07] MEDS: INSULIN REGULAR 100 UNIT in SODIUM CHLORIDE 0.9% 100 ML IV SCH ×2 (06:08→18:24)
[2017-12-07 06:31] LABS: VBG PH 7.31 (7.31-7.41)
[2017-12-07 07:27] LABS: Glucose,Whole Blood 541 mg/dL (75-99)
[2017-12-07] MEDS: SODIUM CHLORIDE 0.9% 1,000 ML IV SCH ×6 (07:45→15:12)
[2017-12-07 08:10] LABS: Glucose,Whole Blood 527 mg/dL (75-99)
[2017-12-07 09:27] LABS: Anion Gap 18 mmol/L; Blood Urea Nitrogen 9 mg/dL (7-17); Carbon Dioxide 15 mmol/L (22-30); Chloride 105 mmol/L (98-107); Potassium 3.9 mmol/L (3.5-5.1); Sodium 138 mmol/L (137-145)
[2017-12-07] MEDS: D5-0.45% NACL WITH KCL 20MEQ/L 1,000 ML IV SCH ×4 (09:27→22:57)
[2017-12-07 09:38] LABS: Glucose 519 mg/dL (74-99)
[2017-12-07] MEDS ORDERED: clonazePAM 1 MG TAB PO SCH (10:15)
[2017-12-07] MEDS: CALCIUM CARB-VIT D 500MG-200UN 1 EACH TAB PO SCH ×2 (11:34→20:59)
[2017-12-07] MEDS: ATENOLOL 50 MG TAB PO SCH (11:35)
[2017-12-07] MEDS: GABAPENTIN 100 MG CAP PO SCH ×2 (11:35→20:59)
[2017-12-07] MEDS: SERTRALINE 100 MG TAB PO SCH (11:35)
[2017-12-07] MEDS: FENOFIBRATE 160 MG TAB PO SCH (11:35)
[2017-12-07] MEDS: HYDROmorphone 1 MG/ML 1 ML SYRINGE IVP PRN ×2 (11:36→18:00)
[2017-12-07] MEDS: LISINOPRIL 20 MG TAB PO SCH (11:59)
[2017-12-07] MEDS: METOCLOPRAMIDE 5 MG TAB PO SCH ×3 (12:16→21:52)
[2017-12-07] MEDS ORDERED: [UNRECOGNIZED DRUG - OTHER] PO SCH (12:30)
[2017-12-07 12:43] LABS: Anion Gap 15 mmol/L; Blood Urea Nitrogen 7 mg/dL (7-17); Carbon Dioxide 18 mmol/L (22-30); Chloride 107 mmol/L (98-107); Glucose 306 mg/dL (74-99); Phosphorus 2.9 mg/dL (2.5-4.5); Sodium 140 mmol/L (137-145)
--- NOTE | 2017-12-07 13:01 | P.HPIM ---
History of Present Illness H&P Date: 12/07/17 This is a 52-year-old female patient of Dr. Borges with previous medical history significant for familial dyslipidemia, recurrent pancreatitis and chronic abdominal pain, thought to be due to hypertriglyceridemia, hypertension and hypertensive cardiovascular disease, diabetes mellitus type 2 with recurrent diabetic ketoacidosis as well as episodes of hyperosmolar nonketotic hyperglycemia, hypertensive cardiovascular disease, chronic pain syndrome, gastroparesis, gastroesophageal reflux disease, diabetic polyneuropathy. Patient states she developed worsening abdominal pain to the epigastric and upper quadrants, nausea, vomiting, diarrhea and gas. She did not take her Levemir and patient presented with a blood sugar of 908 and lactic acidosis at 9.0. CO2 was 15, venous bicarbonate 19, acetone was negative and urine was negative for ketones. Patient was started on insulin drip per protocol and to be admitted into intensive care unit, consult with Dr. Berry for intensive care management. Dilaudid started for pain control. Review of Systems All systems: negative Constitutional: Reports anorexia, Reports fatigue, Reports poor appetite, Denies chills, Denies fever Eyes: denies blurred vision, denies pain Ears, nose, mouth and throat: Denies headache, Denies sore throat Cardiovascular: Denies chest pain, Denies decreased exercise tolerance, Denies dyspnea on exertion, Denies leg edema, Denies lightheadedness, Denies shortness of breath, Denies syncope Respiratory: Denies cough Gastrointestinal: Reports abdominal pain, Reports diarrhea, Reports loss of appetite, Reports nausea, Reports vomiting, Denies melena Genitourinary: Denies dysuria, Denies hematuria, Denies urgency, Denies urinary frequency Musculoskeletal: Denies myalgias Integumentary: Denies pruritus, Denies rash Neurological: Denies numbness, Denies weakness Psychiatric: Denies anxiety, Denies depression Endocrine: Denies fatigue, Denies weight change Past Medical History Past Medical History: Coronary Artery Disease (CAD), Diabetes Mellitus, GERD/ Reflux, Hyperlipidemia, Hypertension, Syncope Additional Past Medical History / Comment(s): IDDM type II, recurrent DKA, episodes of hyperosmolar nonketonic hyperglycemia, hypertensive heart disease, chronic pain syndrome, hypertriglyceridemia, chronic pancreatitis, chronic abdominal pain, gastroparesis, severe GERD, diabetic polyneuropathy mostly in hands and alittle in feet bilaterally, infectious colitis. History of Any Multi-Drug Resistant Organisms: C-DIFF Date of last positivie culture/infection: pt. unsure MDRO Source:: stool Past Surgical History: Cholecystectomy Additional Past Surgical History / Comment(s): Biliary stent through an ERCP that was performed at [facility] and stent removed 2007, lap jenn, colonoscopy, ERCP. Past Anesthesia/Blood Transfusion Reactions: No Reported Reaction Additional Past Anesthesia/Blood Transfusion Reaction / Comment(s): Pt has never received blood."CLAUSTERPHOBIA" Past Psychological History: Anxiety, Depression, Panic Disorder, PTSD Additional Psychological History / Comment(s): Pt lives in her home with her gadiel , son-in-law and 2 grandchildren, however, they will be moving out soon. Pt. states it is organized chaos. She is independent. She currently is on disability. She drives a car a limited amount-family drive her places at times. She has anxiety and occasional anxiety-panic attacks. She sees Dr. Fink at [facility] and is councelled by Chad Samuels. She states her current psych med rigeme is working well. Her gadiel and dad help her out. She has a rescue dog. Smoking Status: Never smoker Past Alcohol Use History: Rare Additional Past Alcohol Use History / Comment(s): patient lives at home with her daughter, son-in-law and 2 grandchildren. She is independent. She is currently on disability. She drives a car limited amount. She has anxiety and occasional anxiety or panic attacks. She sees Dr. Fink at [facility]. Her daughter and father help her out. She has a rescue dog. Past Drug Use History: None Reported - Past Family History Sister(s) Additional Family Medical History / Comment(s): Patient has 2 sisters with no major medical problems. Daughter(s) Additional Family Medical History / Comment(s): Patient has 2 daughters and one had mitral valve replacement. Son(s) Additional Family Medical History / Comment(s): She has one son with no major medical problems. Brother(s) Additional Family Medical History / Comment(s): Does not have any brothers. Father Family Medical History: No Reported History Additional Family Medical History / Comment(s): Father is 79 years of age with severe anxiety and was hospitalized for this at times. Mother Family Medical History: Cancer Additional Family Medical History / Comment(s): Mother of metastatic breast CA at the age of 42yrs. pt. states her grandmother had diabetes as well Medications and Allergies Home Medications Medication Instructions Recorded Confirmed Type Lisinopril [Zestril] 20 mg PO DAILY 09/09/13 12/07/17 History Sertraline [Zoloft] 200 mg PO DAILY tab 08/09/14 12/07/17 Rx HYDROmorphone [Dilaudid] 2 mg PO Q12H PRN 09/17/14 12/07/17 History Multivitamins, Thera [Multivitamin 1 tab PO DAILY 09/17/14 12/07/17 History (formulary)] Atenolol [Tenormin] 100 mg PO DAILY 11/19/14 12/07/17 History Calcium Carb-Vit D 500Mg-200Un 1 tab PO BID 11/19/14 12/07/17 History [Oscal 500+D] Mirtazapine [Remeron] 45 mg PO HS 11/19/14 12/07/17 History Rosuvastatin Calcium [Crestor] 40 mg PO HS 11/19/14 12/07/17 History fentaNYL 25MCG/HR PATCH [Duragesic 1 patch TRANSDERM Q72H #0 07/10/15 12/07/17 Rx 25MCG/HR] Insulin Aspart [NovoLOG Flexpen] 26 unit SQ AC-BRKFST 10/14/15 12/07/17 History Insulin Aspart [NovoLOG Flexpen] 26 unit SQ AC-LUNCH 10/14/15 12/07/17 History Insulin Aspart [NovoLOG Flexpen] 36 units SQ AC-SUPPER 10/14/15 12/07/17 History Pancreatic Enzymes Otc(Unknown) 1 cap PO AC-TID 10/14/15 12/07/17 History Niacin 1,000 mg PO HS 02/04/16 12/07/17 History Insulin Detemir [Levemir] 66 unit SQ HS 07/21/16 12/07/17 History Gemfibrozil [Lopid] 600 mg PO AC-BID 07/02/17 12/07/17 History Metoclopramide [Reglan] 5 mg PO QID 10/12/17 12/07/17 History clonazePAM [KlonoPIN] 1 mg PO DAILY tab 10/14/17 12/07/17 Rx clonazePAM [KlonoPIN] 2 mg PO HS tab 10/14/17 12/07/17 Rx Allergies Allergy/AdvReac Type Severity Reaction Status Date / Time NSAIDS (Non-Steroidal Allergy Rash/Hives Verified 12/07/17 10:38 Anti-Inflamma Physical Exam Vitals: Vital Signs Temp Pulse Pulse Resp BP BP Pulse Ox 12/07/17 09:57 87 16 125/62 96 12/07/17 09:00 88 16 118/65 96 12/07/17 08:21 90 18 110/57 96 12/07/17 08:00 98.3 F 88 16 121/58 97 12/07/17 07:23 97.9 F 89 18 131/71 96 12/07/17 04:02 97.9 F 111 H 18 143/85 99 Intake and Output 12/06/17 12/07/17 12/07/17 22:59 06:59 14:59 Intake Total 2200 Output Total 0 Balance 2200 Intake: IV 2200 Normal Saline 2200 Output: Urine 0 Other: # Voids 1 Weight 64.864 kg General appearance: average body habitus, no acute distress - EENT Eyes: anicteric sclerae, EOMI, PERRLA, no ptosis, no scleral icterus, normal appearance ENT: hearing grossly normal, NA/AT, normal oropharynx, no thrush Ears: bilateral: normal - Neck Neck: no lymphadenopathy, normal ROM, no rigidity, no stridor, no thyromegaly Carotids: bilateral: upstroke normal Thyroid: bilateral: normal size - Respiratory Respiratory: bilateral: CTA, negative: diminished, dullness, rales, rhonchi, wheezing, prolonged expiration, prolonged inspiration - Cardiovascular Rhythm: regular Heart sounds: normal: S1, S2 Abnormal Heart Sounds: no systolic murmur, no S3 Gallop, no S4 Gallop - Gastrointestinal General gastrointestinal: normal bowel sounds, soft, tenderness to the epigastric area, no umbilical hernia, no ventral hernia - Integumentary Integumentary: normal, normal turgor - Neurologic Neurologic: CNII-XII intact - Musculoskeletal Musculoskeletal: gait normal, strength equal bilaterally - Psychiatric Psychiatric: A&O x's 3, appropriate affect, intact judgment & insight Results CBC & Chem 7: 12/07/17 04:30 12/07/17 08:44 Labs: Abnormal Lab Results - Last 24 Hours (Table) 12/07/17 12/07/17 12/07/17 Range/Units 04:09 04:30 04:30 MCHC 30.2 L (31.0-37.0) g/dL Lymphocytes # 0.7 L (1.0-4.8) k/uL VBG HCO3 (24-28) mmol/L Sodium 132 L (137-145) mmol/L Chloride 94 L (98-107) mmol/L Carbon Dioxide 16 L (22-30) mmol/L Creatinine (0.52-1.04) mg/dL Glucose 908 H* (74-99) mg/dL POC Glucose (mg/dL) >600 H (75-99) mg/dL Plasma Lactic Acid Dawit (0.7-2.0) mmol/L AST 46 H (14-36) U/L Alkaline Phosphatase 129 H (38-126) U/L Urine Glucose (UA) (Negative) 12/07/17 12/07/17 12/07/17 Range/Units 04:30 04:40 06:10 MCHC (31.0-37.0) g/dL Lymphocytes # (1.0-4.8) k/uL VBG HCO3 19 L (24-28) mmol/L Sodium (137-145) mmol/L Chloride (98-107) mmol/L Carbon Dioxide (22-30) mmol/L Creatinine (0.52-1.04) mg/dL Glucose (74-99) mg/dL POC Glucose (mg/dL) (75-99) mg/dL Plasma Lactic Acid Dawit 9.7 H* (0.7-2.0) mmol/L AST (14-36) U/L Alkaline Phosphatase (38-126) U/L Urine Glucose (UA) 4+ H (Negative) 12/07/17 12/07/17 12/07/17 Range/Units 07:25 08:07 08:44 MCHC (31.0-37.0) g/dL Lymphocytes # (1.0-4.8) k/uL VBG HCO3 (24-28) mmol/L Sodium (137-145) mmol/L Chloride (98-107) mmol/L Carbon Dioxide 15 L (22-30) mmol/L Creatinine 0.51 L (0.52-1.04) mg/dL Glucose 519 H* (74-99) mg/dL POC Glucose (mg/dL) 541 H 527 H (75-99) mg/dL Plasma Lactic Acid Dawit (0.7-2.0) mmol/L AST (14-36) U/L Alkaline Phosphatase (38-126) U/L Urine Glucose (UA) (Negative) 12/07/17 Range/Units 08:44 MCHC (31.0-37.0) g/dL Lymphocytes # (1.0-4.8) k/uL VBG HCO3 (24-28) mmol/L Sodium (137-145) mmol/L Chloride (98-107) mmol/L Carbon Dioxide (22-30) mmol/L Creatinine (0.52-1.04) mg/dL Glucose (74-99) mg/dL POC Glucose (mg/dL) (75-99) mg/dL Plasma Lactic Acid Dawit 9.0 H* (0.7-2.0) mmol/L AST (14-36) U/L Alkaline Phosphatase (38-126) U/L Urine Glucose (UA) (Negative) Microbiology - Last 24 Hours (Table) 12/07/17 04:40 Urine Culture - Preliminary Urine,Voided Thrombosis Risk Factor Assmnt - DVT/VTE Prophylaxis DVT/VTE Prophylaxis: Pharmacologic Prophylaxis ordered Assessment and Plan Plan: 1. Hyperosmolar nonketotic hyperglycemia with acute lactic acidosis. IV fluid , insulin drip per protocol. Plan that patient be transitioned to Levemir 66 units at bedtime along with her scheduled NovoLog and scale, by tomorrow night. Start clear liquid diet this evening. 2. History of diabetes mellitus type 2, insulin requiring. Patient is usually on Levemir 66 units at bedtime along with Humalog scheduled 26 units with breakfast and lunch and 36 with supper. 3. Hypertension and hypertensive cardiovascular disease with left ventricular hypertrophy. Continue atenolol 100 mg orally once every day as well as lisinopril 20 mg orally once every day. 4. Hyperlipidemia. Continue crestor 40 mg orally once every day, fenofibrate 160 mg orally once every day, Niacin 1000 mg orall daily. 5. Diabetic polyneuropathy. Continue gabapentin 200 mg orally twice every day. 6. Anxiety generalized disorder. Continue Klonopin 2 milligram in the evening and 1 mg in the morning. 7. Depression, recurrent. Continue Zoloft 200 mg orally once every day. 8. Gastroparesis continue Reglan 5 mg before each meal 3 times every day. 9. Chronic pancreatitis continue IV fluid resuscitation as well as current pain management in the form of Dilaudid along with fentanyl patch. 10. GERD continue PPI. 11. DVT. Continue heparin 5000 units subcutaneously every 12 hours. 12. Full code. Admit to inpatient. Estimated length of stay 2 midnights . Discharge plan: Return home Impression and plan of care have been directed as dictated by the signing physician. Amanda Kumar nurse practitioner acting as scribe for signing physician.
--- NOTE | 2017-12-07 14:16 | P.CNPUL ---
History of Present Illness Consult date: 12/07/17 Chief complaint: Acute lactic acidosis, acute hyperglycemia History of present illness: This is a 52-year-old female patient is well-known to us from previous admissions. The patient suffers from diabetes mellitus type 2 and currently she is insulin-dependent. She suffers from chronic pancreatitis. She came into the hospital yesterday after she started having abdominal pains approximately 48 hours ago and subsequently she started having increased nausea , emesis and diarrhea. This has happened to her in the past and typically with these symptoms the patient wasn't an acute hypoglycemic attack and she also developed severe lactic acidosis. A similar presentation occurred this time. The patient skipped one dose of insulin and following that she noted that the blood sugars were considerably elevated. She is on a combination of Lantus insulin and NovoLog pen with meals. She tells me that she skipped only 1 dose. She came into the hospital and immediately was noted that the blood work was majorly abnormal with the patient was found to have an initial anion gap of 16 with the lactic acid level of 9.7 the patient's initial blood sugar was above 600. The patient had normal amylase and lipase. Normal liver function tests. Acetone was negative. The patient had +4 glucose and her urine. She was given IV fluids aggressively and she remains on normal saline infusion at this point in time in the emergency department. She is also on insulin drip at 6.5 units an hour and there is been progressive improvement in the blood sugar control and the most recent anion gap is at 15 with a bicarb level of 18. Repeat lactic acid level is down to 9.0. No leukocytosis. No fever. No altered mentation at this point in time. She felt weak and lethargic yet never to the point where she became confused. No headaches. No significant hypotension or tachycardia. Pulse ox is 95-96% on room air. EKG showed a normal sinus rhythm. This patient was moved to the intensive care unit for further control of the blood sugar monitoring of the severe lactic acidosis. Review of Systems Constitutional: Reports fatigue, Reports lethargy, Reports weakness Eyes: bilateral blurred vision, bilateral decreased vision, denies bulging eye Ears: deny: decreased hearing, ear discharge, earache, tinnitus Ears, nose, mouth and throat: Denies headache, Denies sore throat Cardiovascular: Denies chest pain, Denies shortness of breath Respiratory: Denies cough Gastrointestinal: Reports abdominal pain, Reports nausea, Reports vomiting Genitourinary: Denies dysuria, Denies hematuria Menstruation: Reports as per HPI Musculoskeletal: Reports as per HPI Musculoskeletal: absent: ankle pain, ankle stiffness, ankle swelling Integumentary: Reports as per HPI Neurological: Reports as per HPI, Reports weakness Psychiatric: Reports as per HPI Endocrine: Reports as per HPI, Reports fatigue, Reports high blood sugars, Reports nocturia, Reports polydipsia, Reports polyuria Hematologic/Lymphatic: Reports as per HPI Allergic/Immunologic: Reports as per HPI Past Medical History Past Medical History: Coronary Artery Disease (CAD), Diabetes Mellitus, GERD/ Reflux, Hyperlipidemia, Hypertension, Syncope Additional Past Medical History / Comment(s): IDDM type II, recurrent DKA, episodes of hyperosmolar nonketonic hyperglycemia, hypertensive heart disease, chronic pain syndrome, hypertriglyceridemia, chronic pancreatitis, chronic abdominal pain, gastroparesis, severe GERD, diabetic polyneuropathy mostly in hands and alittle in feet bilaterally, infectious colitis. History of Any Multi-Drug Resistant Organisms: C-DIFF Date of last positivie culture/infection: pt. unsure MDRO Source:: stool Past Surgical History: Cholecystectomy Additional Past Surgical History / Comment(s): Biliary stent through an ERCP that was performed at [facility] and stent removed 2007, lap jenn, colonoscopy, ERCP. Past Anesthesia/Blood Transfusion Reactions: No Reported Reaction Additional Past Anesthesia/Blood Transfusion Reaction / Comment(s): Pt has never received blood."CLAUSTERPHOBIA" Past Psychological History: Anxiety, Depression, Panic Disorder, PTSD Additional Psychological History / Comment(s): Pt lives in her home with her gadiel , son-in-law and 2 grandchildren, however, they will be moving out soon. Pt. states it is organized chaos. She is independent. She currently is on disability. She drives a car a limited amount-family drive her places at times. She has anxiety and occasional anxiety-panic attacks. She sees Dr. Fink at [facility] and is councelled by Chad Samuels. She states her current psych med rigeme is working well. Her gadiel and dad help her out. She has a rescue dog. Smoking Status: Never smoker Past Alcohol Use History: Rare Additional Past Alcohol Use History / Comment(s): patient lives at home with her daughter, son-in-law and 2 grandchildren. She is independent. She is currently on disability. She drives a car limited amount. She has anxiety and occasional anxiety or panic attacks. She sees Dr. Fink at [facility]. Her daughter and father help her out. She has a rescue dog. Past Drug Use History: None Reported - Past Family History Sister(s) Additional Family Medical History / Comment(s): Patient has 2 sisters with no major medical problems. Daughter(s) Additional Family Medical History / Comment(s): Patient has 2 daughters and one had mitral valve replacement. Son(s) Additional Family Medical History / Comment(s): She has one son with no major medical problems. Brother(s) Additional Family Medical History / Comment(s): Does not have any brothers. Father Family Medical History: No Reported History Additional Family Medical History / Comment(s): Father is 79 years of age with severe anxiety and was hospitalized for this at times. Mother Family Medical History: Cancer Additional Family Medical History / Comment(s): Mother of metastatic breast CA at the age of 42yrs. pt. states her grandmother had diabetes as well Medications and Allergies Home Medications Medication Instructions Recorded Confirmed Type Lisinopril [Zestril] 20 mg PO DAILY 09/09/13 12/07/17 History Sertraline [Zoloft] 200 mg PO DAILY tab 08/09/14 12/07/17 Rx HYDROmorphone [Dilaudid] 2 mg PO Q12H PRN 09/17/14 12/07/17 History Multivitamins, Thera [Multivitamin 1 tab PO DAILY 09/17/14 12/07/17 History (formulary)] Atenolol [Tenormin] 100 mg PO DAILY 11/19/14 12/07/17 History Calcium Carb-Vit D 500Mg-200Un 1 tab PO BID 11/19/14 12/07/17 History [Oscal 500+D] Mirtazapine [Remeron] 45 mg PO HS 11/19/14 12/07/17 History Rosuvastatin Calcium [Crestor] 40 mg PO HS 11/19/14 12/07/17 History fentaNYL 25MCG/HR PATCH [Duragesic 1 patch TRANSDERM Q72H #0 07/10/15 12/07/17 Rx 25MCG/HR] Insulin Aspart [NovoLOG Flexpen] 26 unit SQ AC-BRKFST 10/14/15 12/07/17 History Insulin Aspart [NovoLOG Flexpen] 26 unit SQ AC-LUNCH 10/14/15 12/07/17 History Insulin Aspart [NovoLOG Flexpen] 36 units SQ AC-SUPPER 10/14/15 12/07/17 History Pancreatic Enzymes Otc(Unknown) 1 cap PO AC-TID 10/14/15 12/07/17 History Niacin 1,000 mg PO HS 02/04/16 12/07/17 History Insulin Detemir [Levemir] 66 unit SQ HS 07/21/16 12/07/17 History Gemfibrozil [Lopid] 600 mg PO AC-BID 07/02/17 12/07/17 History Metoclopramide [Reglan] 5 mg PO QID 10/12/17 12/07/17 History clonazePAM [KlonoPIN] 1 mg PO DAILY tab 10/14/17 12/07/17 Rx clonazePAM [KlonoPIN] 2 mg PO HS tab 10/14/17 12/07/17 Rx Allergies Allergy/AdvReac Type Severity Reaction Status Date / Time NSAIDS (Non-Steroidal Allergy Rash/Hives Verified 12/07/17 10:38 Anti-Inflamma Physical Exam Vitals: Vital Signs Temp Pulse Pulse Resp BP BP Pulse Ox 12/07/17 13:40 78 16 95 12/07/17 13:30 88 30 H 95 12/07/17 13:20 74 35 H 95 12/07/17 13:10 81 33 H 119/65 96 12/07/17 11:58 78 16 12/07/17 11:57 96.7 F L 78 16 135/68 96 12/07/17 11:00 82 16 131/60 96 12/07/17 09:57 87 16 125/62 96 12/07/17 09:00 88 16 118/65 96 12/07/17 08:21 90 18 110/57 96 12/07/17 08:00 98.3 F 88 16 121/58 97 12/07/17 07:23 97.9 F 89 18 131/71 96 12/07/17 04:02 97.9 F 111 H 18 143/85 99 Intake and Output 12/06/17 12/07/17 12/07/17 22:59 06:59 14:59 Intake Total 2800 Output Total 250 Balance 2550 Intake: IV 2800 Normal Saline 2800 Output: Urine 250 Other: # Voids 1 Weight 64.864 kg Head exam was generally normal. There was no scleral icterus or corneal arcus. Mucous membranes were moist.dNeck was supple and without jugular venous distension, thyromegaly, or carotid bruits. Carotids were easily palpable bilaterally. There was no adenopathy.Lungs were clear to auscultation and percussion, and with normal diaphragmatic excursion. No wheezes or rales were noted. Cardiac exam revealed the PMI to be normally situated and sized. The rhythm was regular and no extrasystoles were noted during several minutes of auscultation. The first and second heart sounds were normal and physiologic splitting of the second heart sound was noted. There were no murmurs, rubs, clicks, or gallops.Abdominal exam revealed normal bowel sounds. The abdomen was soft, non-tender, and without masses, organomegaly, or appreciable enlargement of the abdominal aorta.Examination of the extremities revealed easily palpable radial, femoral and pedal pulses. There was no cyanosis, clubbing or edema. Neurologically awake and alert and there is no focal neurological deficit.Examination of the skin revealed no evidence of significant rashes, suspicious appearing nevi or other concerning lesions. Results - Laboratory Findings CBC and BMP: 12/07/17 04:30 12/07/17 12:06 Abnormal lab findings: Abnormal Labs 12/07/17 12/07/17 12/07/17 04:09 04:30 04:30 MCHC 30.2 L Lymphocytes # 0.7 L VBG HCO3 Sodium 132 L Chloride 94 L Carbon Dioxide 16 L Creatinine Glucose 908 H* POC Glucose (mg/dL) >600 H Plasma Lactic Acid Dawit AST 46 H Alkaline Phosphatase 129 H Urine Glucose (UA) 12/07/17 12/07/17 12/07/17 04:30 04:40 06:10 MCHC Lymphocytes # VBG HCO3 19 L Sodium Chloride Carbon Dioxide Creatinine Glucose POC Glucose (mg/dL) Plasma Lactic Acid Dawit 9.7 H* AST Alkaline Phosphatase Urine Glucose (UA) 4+ H 12/07/17 12/07/17 12/07/17 07:25 08:07 08:44 MCHC Lymphocytes # VBG HCO3 Sodium Chloride Carbon Dioxide 15 L Creatinine 0.51 L Glucose 519 H* POC Glucose (mg/dL) 541 H 527 H Plasma Lactic Acid Dawit AST Alkaline Phosphatase Urine Glucose (UA) 12/07/17 12/07/17 08:44 12:06 MCHC Lymphocytes # VBG HCO3 Sodium Chloride Carbon Dioxide 18 L Creatinine 0.46 L Glucose 306 H POC Glucose (mg/dL) Plasma Lactic Acid Dawit 9.0 H* AST Alkaline Phosphatase Urine Glucose (UA) Assessment and Plan Plan: Assessment 1 acute hyperglycemia without significant lactic acidosis.. The patient has significant anion gap metabolic acidosis which is essentially lactic acidosis. 2 lactic acidosis with a lactic acid level as high as 9.7 with a positive anion gap 3 insulin-dependent diabetes mellitus type 2, with recurrent bouts of DKA in the past and poorly controlled blood sugars 4 chronic pancreatitis, recurrent 5 chronic diabetic gastroparesis with recurrent abdominal pain secondary to above 6 peripheral neuropathy 7 hypertension 8 hypertriglyceridemia 9 chronic pain syndrome 10 coronary artery disease 11 gastric esophageal reflux/GERD 12 generalized anxiety disorder/depression 13 previous history of infectious colitis 14 previous history of insertion abuse stent/ERCP 15 PTSD/anxiety/depression Plan We'll the patient to the intensive care unit. Continue insulin drip. With transition this patient to long-acting insulin once her blood sugars under better control. We need also to make sure that the patient is able to tolerate diet prior to transitioning her to long-acting insulin. She'll be moved to the intensive care unit. We'll monitor the lactic acid level. We'll monitor electrodes every 4 hours. Resume Klonopin, Remeron, Neurontin, fenofibrate, and Reglan for bowel motility. Put the patient also on IV Protonix. Zofran if there is any ongoing emesis. Pancreatic enzymes are within normal limits. May need to restart pancreatic enzyme supplements with meals at a later stage. We' ll continue to follow. She moved to the intensive care unit and the patient was seen in the emergency department.
[2017-12-07 16:39] LABS: Glucose,Whole Blood 480 mg/dL (75-99)
[2017-12-07 16:40] LABS: Glucose,Whole Blood 397 mg/dL (75-99)
[2017-12-07 16:40] LABS: Glucose,Whole Blood 343 mg/dL (75-99)
[2017-12-07 16:44] LABS: Glucose,Whole Blood 225 mg/dL (75-99)
[2017-12-07 16:44] LABS: Glucose,Whole Blood 245 mg/dL (75-99)
[2017-12-07 16:44] LABS: Glucose,Whole Blood 453 mg/dL (75-99)
[2017-12-07 16:44] LABS: Glucose,Whole Blood 353 mg/dL (75-99)
[2017-12-07 17:08] LABS: Glucose,Whole Blood 310 mg/dL (75-99)
[2017-12-07 18:05] LABS: Glucose,Whole Blood 318 mg/dL (75-99)
[2017-12-07 18:47] LABS: Glucose,Whole Blood 228 mg/dL (75-99)
[2017-12-07 20:09] LABS: Glucose,Whole Blood 160 mg/dL (75-99)
[2017-12-07 20:29] LABS: Anion Gap 11 mmol/L; Blood Urea Nitrogen 4 mg/dL (7-17); Carbon Dioxide 20 mmol/L (22-30); Chloride 109 mmol/L (98-107); Glucose 158 mg/dL (74-99); Magnesium 1.7 mg/dL (1.6-2.3); Phosphorus 2.5 mg/dL (2.5-4.5); Potassium 3.7 mmol/L (3.5-5.1); Sodium 140 mmol/L (137-145)
[2017-12-07] MEDS: clonazePAM 1 MG TAB PO SCH (20:59)
[2017-12-07] MEDS: ATORVASTATIN 80 MG TAB PO SCH (20:59)
[2017-12-07] MEDS: HEPARIN SODIUM,PORCINE 5,000 UNIT/ML 1 ML VIAL SQ SCH ×2 (21:00→21:08)
[2017-12-07 21:12] LABS: Glucose,Whole Blood 120 mg/dL (75-99)
[2017-12-07] MEDS: NIACIN TR 500 MG CAPSULE.ER PO SCH (21:52)
[2017-12-07] MEDS: MIRTAZAPINE 45 MG TABLET PO SCH (21:52)
[2017-12-07 21:58] LABS: Glucose,Whole Blood 123 mg/dL (75-99)
[2017-12-07 23:01] LABS: Glucose,Whole Blood 149 mg/dL (75-99)
[2017-12-08] MEDS: HYDROmorphone 1 MG/ML 1 ML SYRINGE IVP PRN ×4 (00:07→19:58)
[2017-12-08 00:14] LABS: Glucose,Whole Blood 206 mg/dL (75-99)
[2017-12-08 01:06] LABS: Glucose,Whole Blood 214 mg/dL (75-99)
[2017-12-08 01:10] LABS: Anion Gap 8 mmol/L; Blood Urea Nitrogen 5 mg/dL (7-17); Calcium 9.3 mg/dL (8.4-10.2); Carbon Dioxide 23 mmol/L (22-30); Chloride 110 mmol/L (98-107); Glucose 194 mg/dL (74-99); Magnesium 1.8 mg/dL (1.6-2.3); Phosphorus 3.2 mg/dL (2.5-4.5); Sodium 141 mmol/L (137-145)
[2017-12-08 02:01] LABS: Glucose,Whole Blood 210 mg/dL (75-99)
[2017-12-08] MEDS ORDERED: D5-0.45% NACL WITH KCL 20MEQ/L 1,000 ML IV SCH (02:15)
[2017-12-08 03:02] LABS: Glucose,Whole Blood 230 mg/dL (75-99)
[2017-12-08 04:11] LABS: Glucose,Whole Blood 216 mg/dL (75-99)
[2017-12-08 04:53] LABS: Basophils % (A) 0 %; Eosinophils # (A) 0.1 k/uL (0-0.7); Eosinophils % (A) 0 %; HCT 43.5 % (34.0-46.0); HGB 14.1 gm/dL (11.4-16.0); Lymphocytes # (A) 2.5 k/uL (1.0-4.8); Lymphocytes % (A) 18 %; MCH 29.9 pg (25.0-35.0); MCHC 32.4 g/dL (31.0-37.0); Mean Platelet Volume 6.6; Monocytes # (A) 0.7 k/uL (0-1.0); Monocytes % (A) 5 %; Neutrophils # (A) 10.6 k/uL (1.3-7.7); Neutrophils % (A) 76 %; Platelet Count 155 k/uL (150-450); RBC 4.73 m/uL (3.80-5.40); RDW 12.9 % (11.5-15.5)
[2017-12-08 05:04] LABS: Anion Gap 8 mmol/L; Blood Urea Nitrogen 6 mg/dL (7-17); Calcium 9.6 mg/dL (8.4-10.2); Carbon Dioxide 22 mmol/L (22-30); Chloride 111 mmol/L (98-107); Glucose 218 mg/dL (74-99); Phosphorus 3.3 mg/dL (2.5-4.5); Potassium 4.3 mmol/L (3.5-5.1); Sodium 141 mmol/L (137-145)
[2017-12-08 07:15] LABS: Glucose,Whole Blood 241 mg/dL (75-99)
[2017-12-08] MEDS: CALCIUM CARB-VIT D 500MG-200UN 1 EACH TAB PO SCH ×2 (08:34→22:34)
[2017-12-08] MEDS: GABAPENTIN 100 MG CAP PO SCH ×2 (08:34→22:34)
[2017-12-08] MEDS: INSULIN ASPART 100 UNIT/ML 1 ML 10 ML VIAL SQ SCH ×4 (08:34→21:38)
[2017-12-08] MEDS: LISINOPRIL 20 MG TAB PO SCH (08:34)
[2017-12-08] MEDS: clonazePAM 1 MG TAB PO SCH ×2 (08:35→21:44)
[2017-12-08] MEDS: HEPARIN SODIUM,PORCINE 5,000 UNIT/ML 1 ML VIAL SQ SCH ×2 (08:35→22:35)
[2017-12-08] MEDS: ATENOLOL 50 MG TAB PO SCH (08:35)
[2017-12-08] MEDS: FENOFIBRATE 160 MG TAB PO SCH (08:39)
[2017-12-08] MEDS: SERTRALINE 100 MG TAB PO SCH (08:40)
[2017-12-08] MEDS: METOCLOPRAMIDE 5 MG TAB PO SCH ×4 (08:40→22:34)
[2017-12-08] MEDS ORDERED: PANTOPRAZOLE 40 MG/10 ML VIAL IVP SCH (09:00)
[2017-12-08 09:31] LABS: Anion Gap 10 mmol/L; Calcium 9.1 mg/dL (8.4-10.2); Carbon Dioxide 19 mmol/L (22-30); Chloride 110 mmol/L (98-107); Glucose 323 mg/dL (74-99); Sodium 139 mmol/L (137-145)
[2017-12-08 09:32] LABS: Blood Urea Nitrogen 7 mg/dL (7-17); Magnesium 1.9 mg/dL (1.6-2.3)
[2017-12-08 11:22] LABS: Glucose,Whole Blood 255 mg/dL (75-99)
[2017-12-08] MEDS: SODIUM CHLORIDE 0.9% 1,000 ML IV SCH ×3 (11:37→11:41)
[2017-12-08] MEDS: MULTIVITAMINS, THERA 1 EACH TAB PO SCH (11:48)
--- NOTE | 2017-12-08 14:29 | P.PN ---
Subjective Progress Note Date: 12/08/17 This is a 52-year-old female patient of Dr. Borges with previous medical history significant for familial dyslipidemia, recurrent pancreatitis and chronic abdominal pain, thought to be due to hypertriglyceridemia, hypertension and hypertensive cardiovascular disease, diabetes mellitus type 2 with recurrent diabetic ketoacidosis as well as episodes of hyperosmolar nonketotic hyperglycemia, hypertensive cardiovascular disease, chronic pain syndrome, gastroparesis, gastroesophageal reflux disease, diabetic polyneuropathy. Patient states she developed worsening abdominal pain to the epigastric and upper quadrants, nausea, vomiting, diarrhea and gas. She did not take her Levemir and patient presented with a blood sugar of 908 and lactic acidosis at 9.0. CO2 was 15, venous bicarbonate 19, acetone was negative and urine was negative for ketones. Patient was started on insulin drip per protocol and to be admitted into intensive care unit, consult with Dr. Berry for intensive care management. Dilaudid started for pain control. 12/08: Patient will be transferred out of the intensive care unit to the [facility] floor. Blood sugars are running in the 200s. Lactic acid down to 3.5. Anion gap is 10. She has been transitioned to Levemir and scheduled NovoLog with NovoLog scale. She has been started on a full liquid diet and tolerated it for breakfast. Diet to be advanced to consistent carbs. Anticipate discharge home tomorrow. Objective - Vital Signs Vital signs: Vital Signs Temp 97.6 F 12/08/17 08:00 Pulse 72 12/08/17 09:00 Resp 13 12/08/17 09:00 BP 95/48 12/08/17 09:00 Pulse Ox 100 12/08/17 09:00 Intake & Output 12/07/17 12/08/17 12/08/17 18:59 06:59 18:59 Intake Total 4081.785 1279.285 550 Output Total 1500 1425 200 Balance 2581.785 -145.715 350 Weight 64.4 kg Intake: IV 4000 1250 150 D5-0.45% NaCl with KCl 1000 1200 20Meq/l 1,000 ml @ 150 mls/hr IV .Q6H40M ZACK Rx# :[id number] D5-0.45% NaCl with KCl 50 150 20Meq/l 1,000 ml @ 50 mls /hr IV .Q20H ZACK Rx#: [id number] Normal Saline 3000 Intake, IV Titration 81.785 29.285 Amount Insulin Regular 100 unit 81.785 29.285 In Sodium Chloride 0.9% 100 ml @ 0.1 UNITS/KG/HR 6.55 mls/hr IV .[id number] ZACK Rx#:[id number] Oral 400 Output: Urine 1500 1425 200 Other: Voiding Method Toilet Toilet # Voids 1 0 1 - Exam General appearance: average body habitus, no acute distress - EENT Eyes: anicteric sclerae, EOMI, PERRLA, no ptosis, no scleral icterus, normal appearance ENT: hearing grossly normal, NA/AT, normal oropharynx, no thrush Ears: bilateral: normal - Neck Neck: no lymphadenopathy, normal ROM, no rigidity, no stridor, no thyromegaly Carotids: bilateral: upstroke normal Thyroid: bilateral: normal size - Respiratory Respiratory: bilateral: CTA, negative: diminished, dullness, rales, rhonchi, wheezing, prolonged expiration, prolonged inspiration - Cardiovascular Rhythm: regular Heart sounds: normal: S1, S2 Abnormal Heart Sounds: no systolic murmur, no S3 Gallop, no S4 Gallop - Gastrointestinal General gastrointestinal: normal bowel sounds, soft, tenderness to the epigastric area, no umbilical hernia, no ventral hernia - Integumentary Integumentary: normal, normal turgor - Neurologic Neurologic: CNII-XII intact - Musculoskeletal Musculoskeletal: gait normal, strength equal bilaterally - Psychiatric Psychiatric: A&O x's 3, appropriate affect, intact judgment & insight - Labs CBC & Chem 7: 12/08/17 04:40 12/08/17 08:50 Labs: Abnormal Lab Results - Last 24 Hours (Table) 12/07/17 12/07/17 12/07/17 Range/Units 09:04 11:14 11:53 WBC (3.8-10.6) k/uL Neutrophils # (1.3-7.7) k/uL Chloride (98-107) mmol/L Carbon Dioxide (22-30) mmol/L BUN (7-17) mg/dL Creatinine (0.52-1.04) mg/dL Glucose (74-99) mg/dL POC Glucose (mg/dL) 480 H 397 H 343 H (75-99) mg/dL Plasma Lactic Acid Dawit (0.7-2.0) mmol/L 12/07/17 12/07/17 12/07/17 Range/Units 12:06 13:35 14:02 WBC (3.8-10.6) k/uL Neutrophils # (1.3-7.7) k/uL Chloride (98-107) mmol/L Carbon Dioxide 18 L (22-30) mmol/L BUN (7-17) mg/dL Creatinine 0.46 L (0.52-1.04) mg/dL Glucose 306 H (74-99) mg/dL POC Glucose (mg/dL) 225 H 453 H (75-99) mg/dL Plasma Lactic Acid Dawit (0.7-2.0) mmol/L 12/07/17 12/07/17 12/07/17 Range/Units 15:09 15:56 17:06 WBC (3.8-10.6) k/uL Neutrophils # (1.3-7.7) k/uL Chloride (98-107) mmol/L Carbon Dioxide (22-30) mmol/L BUN (7-17) mg/dL Creatinine (0.52-1.04) mg/dL Glucose (74-99) mg/dL POC Glucose (mg/dL) 353 H 245 H 310 H (75-99) mg/dL Plasma Lactic Acid Dawit (0.7-2.0) mmol/L 12/07/17 12/07/17 12/07/17 Range/Units 18:03 18:46 20:04 WBC (3.8-10.6) k/uL Neutrophils # (1.3-7.7) k/uL Chloride 109 H (98-107) mmol/L Carbon Dioxide 20 L (22-30) mmol/L BUN 4 L (7-17) mg/dL Creatinine 0.43 L (0.52-1.04) mg/dL Glucose 158 H (74-99) mg/dL POC Glucose (mg/dL) 318 H 228 H (75-99) mg/dL Plasma Lactic Acid Dawit (0.7-2.0) mmol/L 12/07/17 12/07/17 12/07/17 Range/Units 20:07 21:10 21:56 WBC (3.8-10.6) k/uL Neutrophils # (1.3-7.7) k/uL Chloride (98-107) mmol/L Carbon Dioxide (22-30) mmol/L BUN (7-17) mg/dL Creatinine (0.52-1.04) mg/dL Glucose (74-99) mg/dL POC Glucose (mg/dL) 160 H 120 H 123 H (75-99) mg/dL Plasma Lactic Acid Dawit (0.7-2.0) mmol/L 12/07/17 12/07/17 12/08/17 Range/Units 22:59 23:59 00:12 WBC (3.8-10.6) k/uL Neutrophils # (1.3-7.7) k/uL Chloride 110 H (98-107) mmol/L Carbon Dioxide (22-30) mmol/L BUN 5 L (7-17) mg/dL Creatinine 0.40 L (0.52-1.04) mg/dL Glucose 194 H (74-99) mg/dL POC Glucose (mg/dL) 149 H 206 H (75-99) mg/dL Plasma Lactic Acid Dawit (0.7-2.0) mmol/L 12/08/17 12/08/17 12/08/17 Range/Units 01:04 01:59 03:01 WBC (3.8-10.6) k/uL Neutrophils # (1.3-7.7) k/uL Chloride (98-107) mmol/L Carbon Dioxide (22-30) mmol/L BUN (7-17) mg/dL Creatinine (0.52-1.04) mg/dL Glucose (74-99) mg/dL POC Glucose (mg/dL) 214 H 210 H 230 H (75-99) mg/dL Plasma Lactic Acid Dawit (0.7-2.0) mmol/L 12/08/17 12/08/17 12/08/17 Range/Units 04:09 04:40 04:40 WBC (3.8-10.6) k/uL Neutrophils # (1.3-7.7) k/uL Chloride 111 H (98-107) mmol/L Carbon Dioxide (22-30) mmol/L BUN 6 L (7-17) mg/dL Creatinine 0.50 L (0.52-1.04) mg/dL Glucose 218 H (74-99) mg/dL POC Glucose (mg/dL) 216 H (75-99) mg/dL Plasma Lactic Acid Dawit 3.3 H* (0.7-2.0) mmol/L 12/08/17 12/08/17 12/08/17 Range/Units 04:40 07:14 08:50 WBC 14.0 H (3.8-10.6) k/uL Neutrophils # 10.6 H (1.3-7.7) k/uL Chloride 110 H (98-107) mmol/L Carbon Dioxide 19 L (22-30) mmol/L BUN (7-17) mg/dL Creatinine (0.52-1.04) mg/dL Glucose 323 H (74-99) mg/dL POC Glucose (mg/dL) 241 H (75-99) mg/dL Plasma Lactic Acid Dawit (0.7-2.0) mmol/L 12/08/17 Range/Units 08:50 WBC (3.8-10.6) k/uL Neutrophils # (1.3-7.7) k/uL Chloride (98-107) mmol/L Carbon Dioxide (22-30) mmol/L BUN (7-17) mg/dL Creatinine (0.52-1.04) mg/dL Glucose (74-99) mg/dL POC Glucose (mg/dL) (75-99) mg/dL Plasma Lactic Acid Dawit 3.5 H* (0.7-2.0) mmol/L Microbiology - Last 24 Hours (Table) 12/07/17 04:40 Urine Culture - Preliminary Urine,Voided Assessment and Plan Plan: 1. Hyperosmolar nonketotic hyperglycemia with acute lactic acidosis. IV fluid discontinued. Patient has been transitioned to Levemir 66 units at bedtime along with her scheduled NovoLog and scale. Advance diet to consistent carb. 2. History of diabetes mellitus type 2, insulin requiring. Patient is usually on Levemir 66 units at bedtime along with Humalog scheduled 26 units with breakfast and lunch and 36 with supper. 3. Hypertension and hypertensive cardiovascular disease with left ventricular hypertrophy. Continue atenolol 100 mg orally once every day as well as lisinopril 20 mg orally once every day. 4. Hyperlipidemia. Continue crestor 40 mg orally once every day, fenofibrate 160 mg orally once every day, Niacin 1000 mg orall daily. 5. Diabetic polyneuropathy. Continue gabapentin 200 mg orally twice every day. 6. Anxiety generalized disorder. Continue Klonopin 2 milligram in the evening and 1 mg in the morning. 7. Depression, recurrent. Continue Zoloft 200 mg orally once every day. 8. Gastroparesis continue Reglan 5 mg before each meal 3 times every day. 9. Chronic pancreatitis continue IV fluid resuscitation as well as current pain management in the form of Dilaudid along with fentanyl patch. 10. GERD continue PPI. 11. DVT. Continue heparin 5000 units subcutaneously every 12 hours. 12. Full code. Discharge plan: Return home tomorrow Impression and plan of care have been directed as dictated by the signing physician. Amanda Kumar nurse practitioner acting as scribe for signing physician.
[2017-12-08 14:33] VITALS: BMI 24.3
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
[2017-12-08 17:13] LABS: Glucose,Whole Blood 131 mg/dL (75-99)
[2017-12-08] MEDS ORDERED: INSULIN ASPART 100 UNIT/ML 1 ML 10 ML VIAL SQ SCH (17:30)
[2017-12-08] MEDS ORDERED: HYDROmorphone 4 MG TABLET PO PRN (19:26)
[2017-12-08] MEDS ORDERED: INSULIN DETEMIR 100 UNIT/ML 10 ML VIAL SQ SCH (21:00)
[2017-12-08 21:26] LABS: Glucose,Whole Blood 74 mg/dL (75-99)
[2017-12-08] MEDS: MIRTAZAPINE 45 MG TABLET PO SCH (22:34)
[2017-12-08] MEDS: ATORVASTATIN 80 MG TAB PO SCH (22:34)
[2017-12-08] MEDS: NIACIN TR 500 MG CAPSULE.ER PO SCH (22:35)
[2017-12-09 02:20] LABS: Glucose,Whole Blood 137 mg/dL (75-99)
[2017-12-09] MEDS: HYDROmorphone 1 MG/ML 1 ML SYRINGE IVP PRN ×2 (02:28→08:15)
[2017-12-09] MEDS ORDERED: PANTOPRAZOLE 40 MG TABLET PO SCH (07:30)
[2017-12-09 07:45] VITALS: BP 104/74; PULSE 68; RESP 16; TEMP 96.8
[2017-12-09 07:48] LABS: Glucose,Whole Blood 163 mg/dL (75-99)
[2017-12-09] MEDS: clonazePAM 1 MG TAB PO SCH (08:14)
[2017-12-09] MEDS: INSULIN ASPART 100 UNIT/ML 1 ML 10 ML VIAL SQ SCH ×4 (08:14→12:35)
[2017-12-09] MEDS: SERTRALINE 100 MG TAB PO SCH (08:16)
[2017-12-09] MEDS: ATENOLOL 50 MG TAB PO SCH (08:16)
[2017-12-09] MEDS: CALCIUM CARB-VIT D 500MG-200UN 1 EACH TAB PO SCH (08:16)
[2017-12-09] MEDS: METOCLOPRAMIDE 5 MG TAB PO SCH (08:16)
[2017-12-09] MEDS: MULTIVITAMINS, THERA 1 EACH TAB PO SCH (08:17)
[2017-12-09] MEDS: FENOFIBRATE 160 MG TAB PO SCH (08:17)
[2017-12-09] MEDS: LISINOPRIL 20 MG TAB PO SCH (08:17)
[2017-12-09] MEDS: GABAPENTIN 100 MG CAP PO SCH (08:17)
[2017-12-09] MEDS: HEPARIN SODIUM,PORCINE 5,000 UNIT/ML 1 ML VIAL SQ SCH (08:21)
[2017-12-09 10:08] LABS: Anion Gap 10 mmol/L; Blood Urea Nitrogen 14 mg/dL (7-17); Calcium 8.8 mg/dL (8.4-10.2); Carbon Dioxide 20 mmol/L (22-30); Chloride 108 mmol/L (98-107); Glucose 207 mg/dL (74-99); Sodium 138 mmol/L (137-145)
[2017-12-09 10:09] LABS: HCT 38.5 % (34.0-46.0); HGB 12.6 gm/dL (11.4-16.0); MCH 29.8 pg (25.0-35.0); MCHC 32.7 g/dL (31.0-37.0); MCV 91.1 fL (80.0-100.0); Mean Platelet Volume 7.1; Platelet Count 133 k/uL (150-450); RBC 4.23 m/uL (3.80-5.40); RDW 13.1 % (11.5-15.5); WBC 8.1 k/uL (3.8-10.6)
[2017-12-09 10:20] LABS: Potassium 4.2 mmol/L (3.5-5.1)
[2017-12-09 11:55] LABS: Glucose,Whole Blood 186 mg/dL (75-99)
--- NOTE | 2017-12-09 13:04 | P.DS ---
Providers Date of admission: 12/07/17 06:22 Expected date of discharge: 12/09/17 Attending physician: Mike Borges Consults: 12/07/17 06:31 Consult Physician Stat Consulting Provider: Zeeshan Berry Consult Reason/Comments: DKA Do you want consulting provider notified?: Already Contacted Primary care physician: Mike Borges Hospital Course: This is a 52-year-old female patient of Dr. Borges with previous medical history significant for familial dyslipidemia, recurrent pancreatitis and chronic abdominal pain, thought to be due to hypertriglyceridemia, hypertension and hypertensive cardiovascular disease, diabetes mellitus type 2 with recurrent diabetic ketoacidosis as well as episodes of hyperosmolar nonketotic hyperglycemia, hypertensive cardiovascular disease, chronic pain syndrome, gastroparesis, gastroesophageal reflux disease, diabetic polyneuropathy. Patient states she developed worsening abdominal pain to the epigastric and upper quadrants, nausea, vomiting, diarrhea and gas. She did not take her Levemir and patient presented with a blood sugar of 908 and lactic acidosis at 9.0. CO2 was 15, venous bicarbonate 19, acetone was negative and urine was negative for ketones. Patient was started on insulin drip per protocol and to be admitted into intensive care unit, consult with Dr. Berry for intensive care management. Dilaudid started for pain control. 12/08: Patient will be transferred out of the intensive care unit to the [facility] floor. Blood sugars are running in the 200s. Lactic acid down to 3.5. Anion gap is 10. She has been transitioned to Levemir and scheduled NovoLog with NovoLog scale. She has been started on a full liquid diet and tolerated it for breakfast. Diet to be advanced to consistent carbs. Anticipate discharge home tomorrow. 12/09: Blood sugars are running between 74 and 186. She has been afebrile, vital signs stable. Pulse ox 96% on room air. Blood culture showing no growth and urine culture was finalized with no growth. Patient will be discharged home today in stable condition. Discharge diagnoses: 1. Hyperosmolar nonketotic hyperglycemia with acute lactic acidosis. 2. History of diabetes mellitus type 2, insulin requiring. 3. Hypertension and hypertensive cardiovascular disease with left ventricular hypertrophy. 4. Hyperlipidemia. 5. Diabetic polyneuropathy. 6. Anxiety generalized disorder. 7. Depression, recurrent. 8. Gastroparesis 9. Chronic pancreatitis 10. GERD . Discharge plan: Return home Impression and plan of care have been directed as dictated by the signing physician. Amanda Kumar nurse practitioner acting as scribe for signing physician. Patient Condition at Discharge: Good Plan - Discharge Summary New Discharge Prescriptions: New Gabapentin [Neurontin] 200 mg PO BID cap Continue Lisinopril [Zestril] 20 mg PO DAILY Sertraline [Zoloft] 200 mg PO DAILY tab HYDROmorphone [Dilaudid] 2 mg PO Q12H PRN PRN Reason: Pain Multivitamins, Thera [Multivitamin (formulary)] 1 tab PO DAILY Calcium Carb-Vit D 500Mg-200Un [Oscal 500+D] 1 tab PO BID Atenolol [Tenormin] 100 mg PO DAILY Mirtazapine [Remeron] 45 mg PO HS Rosuvastatin Calcium [Crestor] 40 mg PO HS fentaNYL 25MCG/HR PATCH [Duragesic 25MCG/HR] 1 patch TRANSDERM Q72H #0 Insulin Aspart [NovoLOG Flexpen] 36 units SQ AC-SUPPER Insulin Aspart [NovoLOG Flexpen] 26 unit SQ AC-BRKFST Insulin Aspart [NovoLOG Flexpen] 26 unit SQ AC-LUNCH Pancreatic Enzymes Otc(Unknown) 1 cap PO AC-TID Niacin 1,000 mg PO HS Insulin Detemir [Levemir] 66 unit SQ HS Gemfibrozil [Lopid] 600 mg PO AC-BID Metoclopramide [Reglan] 5 mg PO QID clonazePAM [KlonoPIN] 1 mg PO DAILY tab clonazePAM [KlonoPIN] 2 mg PO HS tab Discharge Medication List Lisinopril [Zestril] 20 mg PO DAILY 09/09/13 [History] Sertraline [Zoloft] 200 mg PO DAILY tab 08/09/14 [Rx] HYDROmorphone [Dilaudid] 2 mg PO Q12H PRN 09/17/14 [History] Multivitamins, Thera [Multivitamin (formulary)] 1 tab PO DAILY 09/17/14 [History ] Atenolol [Tenormin] 100 mg PO DAILY 11/19/14 [History] Calcium Carb-Vit D 500Mg-200Un [Oscal 500+D] 1 tab PO BID 08/04/15 [History] Mirtazapine [Remeron] 45 mg PO HS 11/19/14 [History] Rosuvastatin Calcium [Crestor] 40 mg PO HS 11/19/14 [History] fentaNYL 25MCG/HR PATCH [Duragesic 25MCG/HR] 1 patch TRANSDERM Q72H #0 07/10/15 [Rx] Insulin Aspart [NovoLOG Flexpen] 26 unit SQ AC-BRKFST 10/14/15 [History] Insulin Aspart [NovoLOG Flexpen] 26 unit SQ AC-LUNCH 10/14/15 [History] Insulin Aspart [NovoLOG Flexpen] 36 units SQ AC-SUPPER 10/14/15 [History] Pancreatic Enzymes Otc(Unknown) 1 cap PO AC-TID 10/14/15 [History] Niacin 1,000 mg PO HS 02/04/16 [History] Insulin Detemir [Levemir] 66 unit SQ HS 07/21/16 [History] Gemfibrozil [Lopid] 600 mg PO AC-BID 07/02/17 [History] Metoclopramide [Reglan] 5 mg PO QID 10/12/17 [History] clonazePAM [KlonoPIN] 1 mg PO DAILY tab 10/14/17 [Rx] clonazePAM [KlonoPIN] 2 mg PO HS tab 10/14/17 [Rx] Gabapentin [Neurontin] 200 mg PO BID cap 12/09/17 [Rx] Follow up Appointment(s)/Referral(s): Mike Borges MD [Primary Care Provider] - 1-2 days Patient Instructions/Handouts: Diabetic Ketoacidosis (DC) Activity/Diet/Wound Care/Special Instructions: Activity as tolerated. Discharge Disposition: HOME SELF-CARE
== END 2017-12-09 12:40 | disposition home or self-care (01) | DRG 638 ==
LOC: EC 04:00 → 6ICU 06:22 → 4MS4W 12-08 11:14
PROVIDERS: ADMIT Internal Medicine; ATTEND Internal Medicine
DX: E11.00 Type 2 diabetes mellitus with hyperosmolarity without nonketotic hyperglycemic-hyperosmolar coma (NKHHC) (principal); K86.1 Other chronic pancreatitis; E87.2 Acidosis; I11.9 Hypertensive heart disease without heart failure; K31.84 Gastroparesis; E11.42 Type 2 diabetes mellitus with diabetic polyneuropathy; E11.43 Type 2 diabetes mellitus with diabetic autonomic (poly)neuropathy; I25.10 Atherosclerotic heart disease of native coronary artery without angina pectoris; K21.9 Gastro-esophageal reflux disease without esophagitis; E78.5 Hyperlipidemia, unspecified; G89.4 Chronic pain syndrome; E78.1 Pure hyperglyceridemia; K52.9 Noninfective gastroenteritis and colitis, unspecified; F32.9 Major depressive disorder, single episode, unspecified; F41.0 Panic disorder [episodic paroxysmal anxiety]; F41.1 Generalized anxiety disorder; F43.10 Post-traumatic stress disorder, unspecified; F40.240 Claustrophobia; Z79.4 Long term (current) use of insulin; Z79.899 Other long term (current) drug therapy; Z86.19 Personal history of other infectious and parasitic diseases; Z90.49 Acquired absence of other specified parts of digestive tract; Z88.8 Allergy status to other drugs, medicaments and biological substances; Z82.49 Family history of ischemic heart disease and other diseases of the circulatory system; Z80.3 Family history of malignant neoplasm of breast; Z83.3 Family history of diabetes mellitus; Z80.9 Family history of malignant neoplasm, unspecified
CPT/HCPCS: 36415; 80048; 80051; 80053; 81003; 82009; 82565; 82803; 82947; 83605; 83690; 83735; 84100; 84484; 84520; 85025; 85027; 87040; 87086; 93005; 96361; 96374; 96375; 99285

== ENCOUNTER 2018-01-18 18:44 | Inpatient (IN) | payer MEDICARE ==
[2018-01-18] MEDS ORDERED: SODIUM CHLORIDE 0.9% 1,000 ML IV STA ×2 (19:16→21:13)
[2018-01-18] MEDS ORDERED: PANTOPRAZOLE 40 MG/10 ML VIAL IVP STA (19:16)
[2018-01-18] MEDS ORDERED: METOCLOPRAMIDE 5 MG/ML 2 ML VIAL IVP STA (19:16)
--- NOTE | 2018-01-18 19:19 | ED ---
General Adult HPI - General Chief complaint: Recheck/Abnormal Lab/Rx Stated complaint: HYPERGLYCEMIA, PANCREATITIS Time Seen by Provider: 01/18/18 18:59 Source: patient, RN notes reviewed Mode of arrival: ambulatory Limitations: no limitations - History of Present Illness Initial comments: Patient is a pleasant 52-year-old female presenting to the emergency department with vomiting and abdominal pain and hyperglycemia. Patient has have chronic symptoms similar to this. Patient has been chronic pancreatitis. Patient has been previously in DKA. Onset of symptoms today was this morning. Last 2 blood sugar readings have been high. Patient has vomited times. Patient has abdominal discomfort similar to previous pancreatitis. No fevers. - Related Data Home Medications Medication Instructions Recorded Confirmed Lisinopril [Zestril] 20 mg PO DAILY 09/09/13 01/18/18 Multivitamins, Thera [Multivitamin 1 tab PO DAILY 09/17/14 01/18/18 (formulary)] Atenolol [Tenormin] 100 mg PO DAILY 11/19/14 12/07/17 Calcium Carb-Vit D 500Mg-200Un 1 tab PO BID 11/19/14 12/07/17 [Oscal 500+D] Mirtazapine [Remeron] 45 mg PO HS 11/19/14 01/18/18 Rosuvastatin Calcium [Crestor] 40 mg PO HS 11/19/14 01/18/18 Insulin Aspart [NovoLOG Flexpen] 26 unit SQ AC-BRKFST 10/14/15 01/18/18 Insulin Aspart [NovoLOG Flexpen] 26 unit SQ AC-LUNCH 10/14/15 01/18/18 Insulin Aspart [NovoLOG Flexpen] 36 units SQ AC-SUPPER 10/14/15 01/18/18 Pancreatic Enzymes Otc(Unknown) 1 cap PO AC-TID 10/14/15 01/18/18 Niacin 1,000 mg PO HS 02/04/16 01/18/18 Insulin Detemir [Levemir] 66 unit SQ HS 07/21/16 01/18/18 Gemfibrozil [Lopid] 600 mg PO AC-BID 07/02/17 12/07/17 Metoclopramide [Reglan] 5 mg PO QID 10/12/17 01/18/18 Previous Rx's Medication Instructions Recorded Sertraline [Zoloft] 200 mg PO DAILY tab 08/09/14 fentaNYL 25MCG/HR PATCH [Duragesic 1 patch TRANSDERM Q72H #0 07/10/15 25MCG/HR] clonazePAM [KlonoPIN] 1 mg PO DAILY tab 10/14/17 clonazePAM [KlonoPIN] 2 mg PO HS tab 10/14/17 Gabapentin [Neurontin] 200 mg PO BID cap 12/09/17 Allergies Allergy/AdvReac Type Severity Reaction Status Date / Time NSAIDS (Non-Steroidal Allergy Rash/Hives Verified 01/18/18 20:31 Anti-Inflamma Review of Systems ROS Statement: Those systems with pertinent positive or pertinent negative responses have been documented in the HPI. ROS Other: All systems not noted in ROS Statement are negative. Constitutional: Denies: fever Eyes: Denies: eye pain ENT: Denies: ear pain Respiratory: Denies: cough Cardiovascular: Denies: chest pain Endocrine: Reports: fatigue Gastrointestinal: Reports: abdominal pain, nausea, vomiting Genitourinary: Denies: dysuria Musculoskeletal: Denies: back pain Skin: Denies: rash Neurological: Denies: weakness Past Medical History Past Medical History: Coronary Artery Disease (CAD), Diabetes Mellitus, GERD/ Reflux, Hyperlipidemia, Hypertension, Syncope Additional Past Medical History / Comment(s): IDDM type II, recurrent DKA, episodes of hyperosmolar nonketonic hyperglycemia, hypertensive heart disease, chronic pain syndrome, hypertriglyceridemia, chronic pancreatitis, chronic abdominal pain, gastroparesis, severe GERD, diabetic polyneuropathy mostly in hands and alittle in feet bilaterally, infectious colitis. History of Any Multi-Drug Resistant Organisms: C-DIFF Date of last positivie culture/infection: pt. unsure MDRO Source:: stool Past Surgical History: Cholecystectomy Additional Past Surgical History / Comment(s): Biliary stent through an ERCP that was performed at [facility] and stent removed 2007, lap jenn, colonoscopy, ERCP. Past Anesthesia/Blood Transfusion Reactions: No Reported Reaction Additional Past Anesthesia/Blood Transfusion Reaction / Comment(s): Pt has never received blood."CLAUSTERPHOBIA" Past Psychological History: Anxiety, Depression, Panic Disorder, PTSD Smoking Status: Never smoker Past Alcohol Use History: Rare Past Drug Use History: None Reported - Past Family History Sister(s) Additional Family Medical History / Comment(s): Patient has 2 sisters with no major medical problems. Daughter(s) Additional Family Medical History / Comment(s): Patient has 2 daughters and one had mitral valve replacement. Son(s) Additional Family Medical History / Comment(s): She has one son with no major medical problems. Brother(s) Additional Family Medical History / Comment(s): Does not have any brothers. Father Family Medical History: No Reported History Additional Family Medical History / Comment(s): Father is 79 years of age with severe anxiety and was hospitalized for this at times. Mother Family Medical History: Cancer Additional Family Medical History / Comment(s): Mother of metastatic breast CA at the age of 42yrs. pt. states her grandmother had diabetes as well General Exam Limitations: no limitations General appearance: alert, in no apparent distress Head exam: Present: atraumatic Eye exam: Present: normal appearance, PERRL ENT exam: Present: mucous membranes dry Neck exam: Present: normal inspection Respiratory exam: Present: normal lung sounds bilaterally Cardiovascular Exam: Present: regular rate, normal rhythm GI/Abdominal exam: Present: soft. Absent: tenderness, guarding Extremities exam: Present: normal inspection Neurological exam: Present: alert Psychiatric exam: Present: normal affect, normal mood Skin exam: Present: normal color Course Vital Signs 01/18/18 18:50 Temperature 98.2 F Pulse Rate 102 H Respiratory 18 Rate Blood Pressure 129/82 O2 Sat by Pulse 97 Oximetry Medical Decision Making - Medical Decision Making Patient reevaluated and resting comfortably in bed. Patient updated on results and plan. Case was discussed with Dr. Smith, who will admit for Dr. Borges. Patient does not have infectious source and does not meet sepsis criteria. Lactic acid is from dehydration and vomiting. Patient will be provided fluid bolus for lactic acidosis as well as being placed on DKA protocol for hyperglycemia. - Lab Data Result diagrams: 01/18/18 19:45 01/18/18 19:45 Lab Results 01/18/18 01/18/18 01/18/18 Range/Units 19:45 19:45 19:45 WBC 5.6 (3.8-10.6) k/uL RBC 4.50 (3.80-5.40) m/uL Hgb 13.6 (11.4-16.0) gm/dL Hct 42.0 (34.0-46.0) % MCV 93.3 (80.0-100.0) fL MCH 30.1 (25.0-35.0) pg MCHC 32.3 (31.0-37.0) g/dL RDW 12.8 (11.5-15.5) % Plt Count 134 L (150-450) k/uL Neutrophils % 84 % Lymphocytes % 14 % Monocytes % 1 % Eosinophils % 1 % Basophils % 0 % Neutrophils # 4.7 (1.3-7.7) k/uL Lymphocytes # 0.8 L (1.0-4.8) k/uL Monocytes # 0.1 (0-1.0) k/uL Eosinophils # 0.1 (0-0.7) k/uL Basophils # 0.0 (0-0.2) k/uL Hypochromasia Slight PT 10.1 (9.0-12.0) sec INR 1.0 (<1.2) APTT 23.7 (22.0-30.0) sec Sodium 138 (137-145) mmol/L Potassium 4.3 (3.5-5.1) mmol/L Chloride 102 (98-107) mmol/L Carbon Dioxide 17 L (22-30) mmol/L Anion Gap 19 mmol/L BUN 14 (7-17) mg/dL Creatinine 0.62 (0.52-1.04) mg/dL Est GFR (CKD-EPI)AfAm >90 (>60 ml/min/1.73 sqM) Est GFR (CKD-EPI)NonAf >90 (>60 ml/min/1.73 sqM) Glucose 687 H* (74-99) mg/dL Plasma Lactic Acid Dawit (0.7-2.0) mmol/L Calcium 9.4 (8.4-10.2) mg/dL Total Bilirubin 0.4 (0.2-1.3) mg/dL AST 36 (14-36) U/L ALT 25 (9-52) U/L Alkaline Phosphatase 129 H (38-126) U/L Total Protein 6.8 (6.3-8.2) g/dL Albumin 4.4 (3.5-5.0) g/dL Amylase 77 (30-110) U/L Lipase 103 (23-300) U/L Acetone, Qual Negative (Negative) 01/18/18 Range/Units 19:55 WBC (3.8-10.6) k/uL RBC (3.80-5.40) m/uL Hgb (11.4-16.0) gm/dL Hct (34.0-46.0) % MCV (80.0-100.0) fL MCH (25.0-35.0) pg MCHC (31.0-37.0) g/dL RDW (11.5-15.5) % Plt Count (150-450) k/uL Neutrophils % % Lymphocytes % % Monocytes % % Eosinophils % % Basophils % % Neutrophils # (1.3-7.7) k/uL Lymphocytes # (1.0-4.8) k/uL Monocytes # (0-1.0) k/uL Eosinophils # (0-0.7) k/uL Basophils # (0-0.2) k/uL Hypochromasia PT (9.0-12.0) sec INR (<1.2) APTT (22.0-30.0) sec Sodium (137-145) mmol/L Potassium (3.5-5.1) mmol/L Chloride (98-107) mmol/L Carbon Dioxide (22-30) mmol/L Anion Gap mmol/L BUN (7-17) mg/dL Creatinine (0.52-1.04) mg/dL Est GFR (CKD-EPI)AfAm (>60 ml/min/1.73 sqM) Est GFR (CKD-EPI)NonAf (>60 ml/min/1.73 sqM) Glucose (74-99) mg/dL Plasma Lactic Acid Dawit 10.3 H* (0.7-2.0) mmol/L Calcium (8.4-10.2) mg/dL Total Bilirubin (0.2-1.3) mg/dL AST (14-36) U/L ALT (9-52) U/L Alkaline Phosphatase (38-126) U/L Total Protein (6.3-8.2) g/dL Albumin (3.5-5.0) g/dL Amylase (30-110) U/L Lipase (23-300) U/L Acetone, Qual (Negative) - Radiology Data Radiology results: image reviewed (Abdominal x-ray shows nonacute abdomen. Possible splenic megaly.) Disposition Clinical Impression: Lactic acidosis, Hyperglycemia, Nausea & vomiting Disposition: ADMITTED IP TO THIS HOSP Condition: Serious Is patient prescribed a controlled substance at d/c from ED?: No Referrals: Mike Borges MD [Primary Care Provider] - 1-2 days
[2018-01-18 20:08] LABS: Basophils % (A) 0 %; Eosinophils # (A) 0.1 k/uL (0-0.7); Eosinophils % (A) 1 %; HGB 13.6 gm/dL (11.4-16.0); Hypochromasia Slight; Lymphocytes # (A) 0.8 k/uL (1.0-4.8); Lymphocytes % (A) 14 %; MCH 30.1 pg (25.0-35.0); MCHC 32.3 g/dL (31.0-37.0); MCV 93.3 fL (80.0-100.0); Mean Platelet Volume 6.6; Monocytes # (A) 0.1 k/uL (0-1.0); Monocytes % (A) 1 %; Neutrophils # (A) 4.7 k/uL (1.3-7.7); Neutrophils % (A) 84 %; Platelet Count 134 k/uL (150-450); RDW 12.8 % (11.5-15.5); WBC 5.6 k/uL (3.8-10.6)
[2018-01-18 20:16] LABS: Partial Thromboplastin Time 23.7 sec (22.0-30.0); Prothrombin Time 10.1 sec (9.0-12.0)
[2018-01-18 20:25] LABS: ALT 25 U/L (9-52); Albumin 4.4 g/dL (3.5-5.0); Alkaline Phosphatase 129 U/L (38-126); Amylase 77 U/L (30-110); Anion Gap 19 mmol/L; Blood Urea Nitrogen 14 mg/dL (7-17); Calcium 9.4 mg/dL (8.4-10.2); Carbon Dioxide 17 mmol/L (22-30); Chloride 102 mmol/L (98-107); Lipase 103 U/L (23-300); Potassium 4.3 mmol/L (3.5-5.1); Sodium 138 mmol/L (137-145); Total Bilirubin 0.4 mg/dL (0.2-1.3); Total Protein 6.8 g/dL (6.3-8.2)
--- NOTE | 2018-01-18 20:28 | XR ---
EXAMINATION TYPE: XR KUB DATE OF EXAM: 01/18/2018 COMPARISON: 08/17/2017 HISTORY: Abdominal pain TECHNIQUE: 2 views upright FINDINGS: There are fluid levels in the right colon. There is clips from cholecystectomy. Spleen is p robably enlarged. There is no sign of intestinal obstruction or pneumoperitoneum. Fecal material in t he left colon appears normal. There are no pathologic calcifications over the kidneys. IMPRESSION: Possible splenomegaly. Nonacute abdomen. No significant change compared to old exam.
[2018-01-18 20:31] LABS: AST 36 U/L (14-36)
[2018-01-18 20:34] LABS: Glucose 687 mg/dL (74-99)
[2018-01-18] MEDS ORDERED: ONDANSETRON 4 MG/2 ML VIAL IVP PRN (21:14)
[2018-01-18] MEDS ORDERED: NALOXONE 0.4 MG/ML 1 ML VIAL IV PRN (21:14)
[2018-01-18 21:21] LABS: Appearance,Urine Clear (Clear); Bilirubin,Urine Negative (Negative); Blood,Urine Negative (Negative); Color,Urine Colorless; Glucose,Urine (UA) 4+ (Negative); Ketones,Urine Negative (Negative); Leukocyte Esterase,Urine Negative (Negative); Nitrite,Urine Negative (Negative); Protein,Urine Negative (Negative); Specific Gravity,Urine 1.027 (1.001-1.035); Urobilinogen,Urine <2.0 mg/dL (<2.0)
[2018-01-18] MEDS ORDERED: INSULIN REGULAR BOLUS (FROM DRIP BAG) IV ONE (21:21)
[2018-01-18] MEDS: INSULIN REGULAR 100 UNIT in SODIUM CHLORIDE 0.9% 100 ML IV SCH ×2 (21:42→21:46)
[2018-01-18 22:06] LABS: Glucose,Whole Blood 555 mg/dL (75-99)
[2018-01-18] MEDS ORDERED: HYDROmorphone 2 MG TAB PO PRN (22:30)
[2018-01-18] MEDS: SODIUM CHLORIDE 0.9% 1,000 ML IV SCH ×3 (22:49→23:23)
[2018-01-18 23:10] LABS: Glucose,Whole Blood 383 mg/dL (75-99)
[2018-01-19 00:38] LABS: Anion Gap 16 mmol/L; Blood Urea Nitrogen 10 mg/dL (7-17); Carbon Dioxide 15 mmol/L (22-30); Chloride 109 mmol/L (98-107); Glucose 404 mg/dL (74-99); Potassium 3.8 mmol/L (3.5-5.1); Sodium 140 mmol/L (137-145)
[2018-01-19 01:19] LABS: Glucose,Whole Blood 341 mg/dL (75-99)
[2018-01-19 01:46] LABS: Glucose,Whole Blood 369 mg/dL (75-99)
[2018-01-19 02:29] LABS: Glucose,Whole Blood 269 mg/dL (75-99)
[2018-01-19] MEDS: clonazePAM 1 MG TAB PO SCH ×3 (03:17→20:18)
[2018-01-19] MEDS: traMADol 50 MG TAB PO SCH ×5 (03:18→22:20)
[2018-01-19 03:21] LABS: Glucose,Whole Blood 283 mg/dL (75-99)
[2018-01-19] MEDS: MIRTAZAPINE 45 MG TABLET PO SCH ×2 (03:36→20:14)
[2018-01-19 04:12] LABS: Glucose,Whole Blood 217 mg/dL (75-99)
[2018-01-19 04:34] LABS: Basophils % (A) 0 %; Eosinophils # (A) 0.1 k/uL (0-0.7); Eosinophils % (A) 1 %; HGB 12.7 gm/dL (11.4-16.0); Lymphocytes # (A) 1.7 k/uL (1.0-4.8); Lymphocytes % (A) 21 %; MCH 29.8 pg (25.0-35.0); MCHC 32.6 g/dL (31.0-37.0); MCV 91.5 fL (80.0-100.0); Mean Platelet Volume 6.2; Monocytes # (A) 0.4 k/uL (0-1.0); Monocytes % (A) 5 %; Neutrophils # (A) 5.8 k/uL (1.3-7.7); Neutrophils % (A) 73 %; Platelet Count 136 k/uL (150-450); RBC 4.26 m/uL (3.80-5.40); RDW 12.6 % (11.5-15.5)
[2018-01-19 04:52] LABS: Anion Gap 11 mmol/L; Blood Urea Nitrogen 8 mg/dL (7-17); Carbon Dioxide 18 mmol/L (22-30); Chloride 111 mmol/L (98-107); Glucose 194 mg/dL (74-99); Phosphorus 2.6 mg/dL (2.5-4.5); Potassium 3.6 mmol/L (3.5-5.1); Sodium 140 mmol/L (137-145)
[2018-01-19] MEDS: SODIUM CHLORIDE 0.9% 1,000 ML IV SCH ×2 (04:54→06:29)
[2018-01-19] MEDS ORDERED: D5-0.45% NACL WITH KCL 20MEQ/L 1,000 ML IV SCH (05:00)
[2018-01-19 05:26] LABS: Glucose,Whole Blood 161 mg/dL (75-99)
[2018-01-19] MEDS: INSULIN REGULAR 100 UNIT in SODIUM CHLORIDE 0.9% 100 ML IV SCH (06:10)
[2018-01-19 06:16] LABS: Glucose,Whole Blood 128 mg/dL (75-99)
[2018-01-19] MEDS: FENOFIBRATE 160 MG TAB PO SCH (06:30)
[2018-01-19 07:03] LABS: Glucose,Whole Blood 113 mg/dL (75-99)
[2018-01-19] MEDS: INSULIN ASPART 100 UNIT/ML 1 ML 10 ML VIAL SQ SCH (08:17)
[2018-01-19] MEDS: ATENOLOL 50 MG TAB PO SCH (08:20)
[2018-01-19] MEDS: LISINOPRIL 20 MG TAB PO SCH (08:21)
[2018-01-19] MEDS: SERTRALINE 100 MG TAB PO SCH (08:21)
[2018-01-19] MEDS: CALCIUM CARB-VIT D 500MG-200UN 1 EACH TAB PO SCH ×2 (08:21→20:14)
[2018-01-19] MEDS: GABAPENTIN 100 MG CAP PO SCH ×2 (08:21→20:14)
[2018-01-19] MEDS: MULTIVITAMINS, THERA 1 EACH TAB PO SCH (08:22)
[2018-01-19 10:04] VITALS: BMI 25.3
[2018-01-19] MEDS: PANTOPRAZOLE 40 MG/10 ML VIAL IV SCH (10:39)
[2018-01-19 11:45] LABS: Glucose,Whole Blood 82 mg/dL (75-99)
[2018-01-19 11:48] LABS: Glucose,Whole Blood 100 mg/dL (75-99)
[2018-01-19] MEDS ORDERED: INSULIN ASPART 100 UNIT/ML 1 ML 10 ML VIAL SQ SCH ×2 (12:30→17:30)
--- NOTE | 2018-01-19 13:09 | P.HPIM ---
History of Present Illness H&P Date: 01/19/18 Chief Complaint: Hyperglycemia This is a 52-year-old female patient of Dr. Borges with previous medical history significant for familial dyslipidemia, recurrent pancreatitis and chronic abdominal pain, thought to be due to hypertriglyceridemia, hypertension and hypertensive cardiovascular disease, diabetes mellitus type 2 with recurrent diabetic ketoacidosis as well as episodes of hyperosmolar nonketotic hyperglycemia, hypertensive cardiovascular disease, chronic pain syndrome, gastroparesis, gastroesophageal reflux disease, diabetic polyneuropathy. Patient states she developed worsening abdominal pain to the epigastric and upper quadrants, nausea, vomiting. She presented with a blood sugar of 687 and lactic acidosis at 10.3. CO2 was 17, lipase and amylase were normal. Alkaline phosphatase is 129, acetone was negative and urine was negative for ketones. Patient was started on insulin drip per protocol and to be admitted to the selective care unit, Tramadol started for pain control. Patient does state that she is on fentanyl and Dilaudid she only uses as needed at home. She states she slept very well with the tramadol and had improvement of her pain. She did eat breakfast with no nausea which is also improved. She is feeling tired. She has been up to the bathroom this morning without difficulty. She states she has started having diarrhea. Patient was transitioned over to her home insulin regime and blood sugars are running in the low 100s. Patient was prepared for discharge home and was to ambulate in the hallway. She related with staff but then felt weak and she went down to the ground. No loss of consciousness no injury. Following that patient was in the bathroom and she states she had a fall and hit her head on the sink. Apparently no loss of consciousness. Patient was on the floor and was able to unlock the door so the nursing staff can come in. Her blood sugar was 100. Blood pressure was stable. Patient had a CAT scan of the brain and orthostatic vital signs checked. Review of Systems All systems: negative Constitutional: Reports poor appetite, Denies chills, Denies fever Eyes: denies blurred vision, denies pain Ears, nose, mouth and throat: Denies headache, Denies sore throat Cardiovascular: Denies chest pain, Denies lightheadedness, Denies shortness of breath, Denies syncope Respiratory: Denies cough, Denies cough with sputum, Denies dyspnea, Denies excessive sputum, Denies hemoptysis, Denies home oxygen, Denies wheezing Gastrointestinal: Reports abdominal pain, Reports diarrhea, Reports loss of appetite, Reports nausea, Reports vomiting Genitourinary: Denies dysuria, Denies hematuria Musculoskeletal: Denies myalgias Integumentary: Denies pruritus, Denies rash Neurological: Denies numbness, Denies weakness Psychiatric: Denies anxiety, Denies depression Endocrine: Denies fatigue, Denies weight change Past Medical History Past Medical History: Coronary Artery Disease (CAD), Diabetes Mellitus, GERD/ Reflux, Hyperlipidemia, Hypertension, Syncope Additional Past Medical History / Comment(s): IDDM type II, recurrent DKA, episodes of hyperosmolar nonketonic hyperglycemia, hypertensive heart disease, chronic pain syndrome, hypertriglyceridemia, chronic pancreatitis, chronic abdominal pain, gastroparesis, severe GERD, diabetic polyneuropathy mostly in hands and alittle in feet bilaterally, infectious colitis. History of Any Multi-Drug Resistant Organisms: C-DIFF Date of last positivie culture/infection: pt. unsure MDRO Source:: stool Past Surgical History: Cholecystectomy Additional Past Surgical History / Comment(s): Biliary stent through an ERCP that was performed at [facility] and stent removed 2007, lap jenn, colonoscopy, ERCP. Past Anesthesia/Blood Transfusion Reactions: No Reported Reaction Additional Past Anesthesia/Blood Transfusion Reaction / Comment(s): Pt has never received blood."CLAUSTERPHOBIA" Past Psychological History: Anxiety, Depression, Panic Disorder, PTSD Additional Psychological History / Comment(s): Pt lives in her home with her gadiel , son-in-law and 2 grandchildren, however, they will be moving out soon. Pt. states it is organized chaos. She is independent. She currently is on disability. She drives a car a limited amount-family drive her places at times. She has anxiety and occasional anxiety-panic attacks. She sees Dr. Fink at [facility] and is councelled by Chad Samuels. She states her current psych med rigeme is working well. Her gadiel and dad help her out. She has a rescue dog. Smoking Status: Never smoker Past Alcohol Use History: Rare Additional Past Alcohol Use History / Comment(s): patient lives at home alone with dog. She is independent. She is currently on disability. She drives a car limited amount. She has anxiety and occasional anxiety or panic attacks. She sees Dr. Fink at [facility]. Her daughter and father help her out. She has a rescue dog. Past Drug Use History: None Reported - Past Family History Sister(s) Additional Family Medical History / Comment(s): Patient has 2 sisters with no major medical problems. Daughter(s) Additional Family Medical History / Comment(s): Patient has 2 daughters and one had mitral valve replacement. Son(s) Additional Family Medical History / Comment(s): She has one son with no major medical problems. Brother(s) Additional Family Medical History / Comment(s): Does not have any brothers. Father Family Medical History: No Reported History Additional Family Medical History / Comment(s): Father is 79 years of age with severe anxiety and was hospitalized for this at times. Mother Family Medical History: Cancer Additional Family Medical History / Comment(s): Mother of metastatic breast CA at the age of 42yrs. pt. states her grandmother had diabetes as well Medications and Allergies Home Medications Medication Instructions Recorded Confirmed Type Lisinopril [Zestril] 20 mg PO DAILY 09/09/13 01/18/18 History Sertraline [Zoloft] 200 mg PO DAILY tab 08/09/14 01/18/18 Rx Multivitamins, Thera [Multivitamin 1 tab PO DAILY 09/17/14 01/18/18 History (formulary)] Atenolol [Tenormin] 100 mg PO DAILY 11/19/14 01/18/18 History Calcium Carb-Vit D 500Mg-200Un 1 tab PO BID 11/19/14 01/18/18 History [Oscal 500+D] Mirtazapine [Remeron] 45 mg PO HS 11/19/14 01/18/18 History Rosuvastatin Calcium [Crestor] 40 mg PO HS 11/19/14 01/18/18 History fentaNYL 25MCG/HR PATCH [Duragesic 1 patch TRANSDERM Q72H #0 07/10/15 01/18/18 Rx 25MCG/HR] Insulin Aspart [NovoLOG Flexpen] 26 unit SQ AC-BRKFST 10/14/15 01/18/18 History Insulin Aspart [NovoLOG Flexpen] 26 unit SQ AC-LUNCH 10/14/15 01/18/18 History Insulin Aspart [NovoLOG Flexpen] 36 units SQ AC-SUPPER 10/14/15 01/18/18 History Pancreatic Enzymes Otc(Unknown) 1 cap PO AC-TID 10/14/15 01/18/18 History Niacin 1,000 mg PO HS 02/04/16 01/18/18 History Insulin Detemir [Levemir] 66 unit SQ HS 07/21/16 01/18/18 History Gemfibrozil [Lopid] 600 mg PO AC-BID 07/02/17 01/18/18 History Metoclopramide [Reglan] 5 mg PO QID 10/12/17 01/18/18 History clonazePAM [KlonoPIN] 1 mg PO DAILY tab 10/14/17 01/18/18 Rx clonazePAM [KlonoPIN] 2 mg PO HS tab 10/14/17 01/18/18 Rx Gabapentin [Neurontin] 200 mg PO BID cap 12/09/17 01/18/18 Rx Allergies Allergy/AdvReac Type Severity Reaction Status Date / Time NSAIDS (Non-Steroidal Allergy Rash/Hives Verified 01/18/18 20:31 Anti-Inflamma Physical Exam Vitals: Vital Signs Temp Pulse Pulse Resp BP BP Pulse Ox 01/19/18 08:00 98.0 F 79 16 114/69 97 01/19/18 04:00 89 20 01/19/18 03:23 97.2 F L 89 20 115/59 95 01/19/18 00:00 97 F L 88 20 113/57 95 01/18/18 22:30 97.1 F L 87 16 120/77 96 01/18/18 21:41 98.2 F 81 16 127/64 96 01/18/18 18:50 98.2 F 102 H 18 129/82 97 Intake and Output 01/18/18 01/19/18 01/19/18 22:59 06:59 14:59 Intake Total 400 527.179 5.079 Balance 400 527.179 5.079 Intake: Intake, IV Titration 400 527.179 5.079 Amount D5-0.45% NaCl with KCl 450 20Meq/l 1,000 ml @ 150 mls/hr IV .[id number] [facility] Rx# :[id number] Insulin Regular 100 unit 0 77.179 5.079 In Sodium Chloride 0.9% 100 ml @ 0.1 UNITS/KG/HR 6.55 mls/hr IV .[id number] [facility] Rx#:[id number] Sodium Chloride 0.9% 1, 400 000 ml @ 200 mls/hr IV . Q5H [facility] Rx#:[id number] Other: Voiding Method Toilet # Voids 1 1 Weight 64.864 kg 67 kg General appearance: average body habitus, no acute distress - EENT Eyes: anicteric sclerae, EOMI, PERRLA, no ptosis, no scleral icterus, normal appearance ENT: hearing grossly normal, NA/AT, normal oropharynx, no thrush Ears: bilateral: normal - Neck Neck: no lymphadenopathy, normal ROM, no rigidity, no stridor, no thyromegaly Carotids: bilateral: upstroke normal Thyroid: bilateral: normal size - Respiratory Respiratory: bilateral: CTA, negative: diminished, dullness, rales, rhonchi, wheezing, prolonged expiration, prolonged inspiration - Cardiovascular Rhythm: regular Heart sounds: normal: S1, S2 Abnormal Heart Sounds: no systolic murmur, no S3 Gallop, no S4 Gallop - Gastrointestinal General gastrointestinal: normal bowel sounds, soft, tenderness to the epigastric area, no umbilical hernia, no ventral hernia - Integumentary Integumentary: normal, normal turgor - Neurologic Neurologic: CNII-XII intact - Musculoskeletal Musculoskeletal: gait normal, strength equal bilaterally - Psychiatric Psychiatric: A&O x's 3, appropriate affect, intact judgment & insight Results CBC & Chem 7: 01/19/18 04:18 01/19/18 04:18 Labs: Abnormal Lab Results - Last 24 Hours (Table) 01/18/18 01/18/18 01/18/18 Range/Units 19:30 19:45 19:45 Plt Count 134 L (150-450) k/uL Lymphocytes # 0.8 L (1.0-4.8) k/uL Chloride (98-107) mmol/L Carbon Dioxide 17 L (22-30) mmol/L Creatinine (0.52-1.04) mg/dL Glucose 687 H* (74-99) mg/dL POC Glucose (mg/dL) (75-99) mg/dL Plasma Lactic Acid Dawit (0.7-2.0) mmol/L Alkaline Phosphatase 129 H (38-126) U/L Urine Glucose (UA) 4+ H (Negative) 01/18/18 01/18/18 01/18/18 Range/Units 19:55 22:04 23:08 Plt Count (150-450) k/uL Lymphocytes # (1.0-4.8) k/uL Chloride (98-107) mmol/L Carbon Dioxide (22-30) mmol/L Creatinine (0.52-1.04) mg/dL Glucose (74-99) mg/dL POC Glucose (mg/dL) 555 H 383 H (75-99) mg/dL Plasma Lactic Acid Dawit 10.3 H* (0.7-2.0) mmol/L Alkaline Phosphatase (38-126) U/L Urine Glucose (UA) (Negative) 01/19/18 01/19/18 01/19/18 Range/Units 00:07 00:07 00:44 Plt Count (150-450) k/uL Lymphocytes # (1.0-4.8) k/uL Chloride 109 H (98-107) mmol/L Carbon Dioxide 15 L (22-30) mmol/L Creatinine (0.52-1.04) mg/dL Glucose 404 H (74-99) mg/dL POC Glucose (mg/dL) 341 H (75-99) mg/dL Plasma Lactic Acid Dawit 9.2 H* (0.7-2.0) mmol/L Alkaline Phosphatase (38-126) U/L Urine Glucose (UA) (Negative) 01/19/18 01/19/18 01/19/18 Range/Units 01:34 02:18 03:09 Plt Count (150-450) k/uL Lymphocytes # (1.0-4.8) k/uL Chloride (98-107) mmol/L Carbon Dioxide (22-30) mmol/L Creatinine (0.52-1.04) mg/dL Glucose (74-99) mg/dL POC Glucose (mg/dL) 369 H 269 H 283 H (75-99) mg/dL Plasma Lactic Acid Dawit (0.7-2.0) mmol/L Alkaline Phosphatase (38-126) U/L Urine Glucose (UA) (Negative) 01/19/18 01/19/18 01/19/18 Range/Units 03:57 04:18 04:18 Plt Count 136 L (150-450) k/uL Lymphocytes # (1.0-4.8) k/uL Chloride 111 H (98-107) mmol/L Carbon Dioxide 18 L (22-30) mmol/L Creatinine 0.44 L (0.52-1.04) mg/dL Glucose 194 H (74-99) mg/dL POC Glucose (mg/dL) 217 H (75-99) mg/dL Plasma Lactic Acid Dawit (0.7-2.0) mmol/L Alkaline Phosphatase (38-126) U/L Urine Glucose (UA) (Negative) 01/19/18 01/19/18 01/19/18 Range/Units 04:18 04:59 06:01 Plt Count (150-450) k/uL Lymphocytes # (1.0-4.8) k/uL Chloride (98-107) mmol/L Carbon Dioxide (22-30) mmol/L Creatinine (0.52-1.04) mg/dL Glucose (74-99) mg/dL POC Glucose (mg/dL) 161 H 128 H (75-99) mg/dL Plasma Lactic Acid Dawit 4.2 H* (0.7-2.0) mmol/L Alkaline Phosphatase (38-126) U/L Urine Glucose (UA) (Negative) 01/19/18 Range/Units 07:00 Plt Count (150-450) k/uL Lymphocytes # (1.0-4.8) k/uL Chloride (98-107) mmol/L Carbon Dioxide (22-30) mmol/L Creatinine (0.52-1.04) mg/dL Glucose (74-99) mg/dL POC Glucose (mg/dL) 113 H (75-99) mg/dL Plasma Lactic Acid Dawit (0.7-2.0) mmol/L Alkaline Phosphatase (38-126) U/L Urine Glucose (UA) (Negative) Thrombosis Risk Factor Assmnt - DVT/VTE Prophylaxis DVT/VTE Prophylaxis: Pharmacologic Prophylaxis ordered - Choose All That Apply Any of the Below Risk Factors Present?: Yes Each Factor Represents 1 point: Age 41-60 years Thrombosis Risk Factor Assessment Total Risk Factor Score: 1 Thrombosis Risk Factor Assessment Level: Low Risk Assessment and Plan Plan: 1. Hyperosmolar nonketotic hyperglycemia with acute lactic acidosis. IV fluid , insulin drip per protocol, transitioned to Levemir 66 units at bedtime along with her scheduled NovoLog and scale, clear liquid diet to be advanced. 2. History of diabetes mellitus type 2, insulin requiring. Patient is usually on Levemir 66 units at bedtime along with Humalog scheduled 26 units with breakfast and lunch and 36 with supper. 3. Generalized weakness with fall in the bathroom. CAT scan of the brain will be obtained. Orthostatic vital signs. 4. Hypertension and hypertensive cardiovascular disease with left ventricular hypertrophy. Continue atenolol 100 mg orally once every day as well as lisinopril 20 mg orally once every day. 5. Hyperlipidemia. Continue crestor 40 mg orally once every day, fenofibrate 160 mg orally once every day, Niacin 1000 mg orall daily. 6. Diabetic polyneuropathy. Continue gabapentin 200 mg orally twice every day. 7. Anxiety generalized disorder. Continue Klonopin 2 milligram in the evening and 1 mg in the morning. 8. Depression, recurrent. Continue Zoloft 200 mg orally once every day. 9. Gastroparesis continue Reglan 5 mg before each meal 3 times every day. 10. Chronic pancreatitis continue IV fluid resuscitation as well as current pain management in the form of Dilaudid along with fentanyl patch. 11. GERD continue PPI. 12. DVT. Continue heparin 5000 units subcutaneously every 12 hours. 13. Full code. Admit to inpatient. Estimated length of stay 2 midnights . Discharge plan: Return home Impression and plan of care have been directed as dictated by the signing physician. Amanda Kumar nurse practitioner acting as scribe for signing physician.
--- NOTE | 2018-01-19 13:41 | CT ---
EXAMINATION TYPE: CT brain wo con DATE OF EXAM: 01/19/2018 COMPARISON: Prior CT brain 07/02/2017 HISTORY: Fall, trauma and pain CT DLP: 961.0 mGycm Automated exposure control for dose reduction was used. Helical acquisition through the brain. FINDINGS: No interval change. IMPRESSION: NO ACUTE ABNORMALITY. NO EVIDENT HEMORRHAGE OR HYDROCEPHALUS. CALVARIUM IS INTACT.
[2018-01-19 16:03] LABS: Glucose,Whole Blood 92 mg/dL (75-99)
[2018-01-19 17:04] LABS: Glucose,Whole Blood 273 mg/dL (75-99)
[2018-01-19 18:20] VITALS: RESP 16
[2018-01-19] MEDS: HEPARIN SODIUM,PORCINE 5,000 UNIT/ML 1 ML VIAL SQ SCH (20:18)
[2018-01-19 20:59] LABS: Glucose,Whole Blood 110 mg/dL (75-99)
[2018-01-19] MEDS ORDERED: ATORVASTATIN 80 MG TAB PO SCH (21:00)
[2018-01-19] MEDS ORDERED: INSULIN DETEMIR 100 UNIT/ML 10 ML VIAL SQ SCH (21:00)
[2018-01-19] MEDS ORDERED: NIACIN TR 500 MG CAPSULE.ER PO SCH (21:00)
[2018-01-20 06:21] LABS: Glucose,Whole Blood 190 mg/dL (75-99)
[2018-01-20 06:45] VITALS: BP 105/69; PULSE 73; TEMP 97.3
[2018-01-20] MEDS: FENOFIBRATE 160 MG TAB PO SCH (06:49)
[2018-01-20] MEDS: INSULIN ASPART 100 UNIT/ML 1 ML 10 ML VIAL SQ SCH (07:12)
[2018-01-20] MEDS: ATENOLOL 50 MG TAB PO SCH (07:59)
[2018-01-20] MEDS: PANTOPRAZOLE 40 MG/10 ML VIAL IV SCH (08:00)
[2018-01-20] MEDS: LISINOPRIL 20 MG TAB PO SCH (08:00)
[2018-01-20] MEDS: HEPARIN SODIUM,PORCINE 5,000 UNIT/ML 1 ML VIAL SQ SCH (08:00)
[2018-01-20] MEDS: CALCIUM CARB-VIT D 500MG-200UN 1 EACH TAB PO SCH (08:00)
[2018-01-20] MEDS: GABAPENTIN 100 MG CAP PO SCH (08:00)
[2018-01-20] MEDS: SERTRALINE 100 MG TAB PO SCH (08:01)
[2018-01-20] MEDS: MULTIVITAMINS, THERA 1 EACH TAB PO SCH (08:01)
[2018-01-20] MEDS: clonazePAM 1 MG TAB PO SCH (08:03)
[2018-01-20] MEDS: traMADol 50 MG TAB PO SCH (08:03)
--- NOTE | 2018-01-24 14:43 | P.DS ---
Providers Date of admission: 01/18/18 21:14 Expected date of discharge: 01/20/18 Attending physician: Roderick Bowden MD Primary care physician: Mike Borges [facility] Course: This is a 52-year-old female patient of Dr. Borges with previous medical history significant for familial dyslipidemia, recurrent pancreatitis and chronic abdominal pain, thought to be due to hypertriglyceridemia, hypertension and hypertensive cardiovascular disease, diabetes mellitus type 2 with recurrent diabetic ketoacidosis as well as episodes of hyperosmolar nonketotic hyperglycemia, hypertensive cardiovascular disease, chronic pain syndrome, gastroparesis, gastroesophageal reflux disease, diabetic polyneuropathy. Patient states she developed worsening abdominal pain to the epigastric and upper quadrants, nausea, vomiting. She presented with a blood sugar of 687 and lactic acidosis at 10.3. CO2 was 17, lipase and amylase were normal. Alkaline phosphatase is 129, acetone was negative and urine was negative for ketones. Patient was started on insulin drip per protocol and to be admitted to the selective care unit, Tramadol started for pain control. Patient does state that she is on fentanyl and Dilaudid she only uses as needed at home. She states she slept very well with the tramadol and had improvement of her pain. She did eat breakfast with no nausea which is also improved. She is feeling tired. She has been up to the bathroom this morning without difficulty. She states she has started having diarrhea. Patient was transitioned over to her home insulin regime and blood sugars are running in the low 100s. Patient was prepared for discharge home and was to ambulate in the hallway. She related with staff but then felt weak and she went down to the ground. No loss of consciousness no injury. Following that patient was in the bathroom and she states she had a fall and hit her head on the sink. Apparently no loss of consciousness. Patient was on the floor and was able to unlock the door so the nursing staff can come in. Her blood sugar was 100. Blood pressure was stable. Patient had a CAT scan of the brain and orthostatic vital signs checked. 01/20: Patient has had no further episodes of weakness. Sugars running between 92 and 273. Vital signs have been stable. Patient has been afebrile. Pulse ox 96% on room air. Patient has been resumed on her home medication regime. Patient will be discharged home today in stable condition. Maps was done on this patient which revealed the patient has not had Dilaudid prescribed for the past year. Discharge Diagnoses: 1. Hyperosmolar nonketotic hyperglycemia with acute lactic acidosis. 2. History of diabetes mellitus type 2, insulin requiring. 3. Generalized weakness with fall in the bathroom. 4. Hypertension and hypertensive cardiovascular disease with left ventricular hypertrophy. 5. Hyperlipidemia. 6. Diabetic polyneuropathy. 7. Anxiety generalized disorder. 8. Depression, recurrent. 9. Gastroparesis 10. Chronic pancreatitis 11. GERD Discharge plan: Return home Impression and plan of care have been directed as dictated by the signing physician. Amanda Kumar nurse practitioner acting as scribe for signing physician. Patient Condition at Discharge: Good Plan - Discharge Summary Discharge Rx Participant: No New Discharge Prescriptions: Continue Lisinopril [Zestril] 20 mg PO DAILY Sertraline [Zoloft] 200 mg PO DAILY tab Multivitamins, Thera [Multivitamin (formulary)] 1 tab PO DAILY Calcium Carb-Vit D 500Mg-200Un [Oscal 500+D] 1 tab PO BID Atenolol [Tenormin] 100 mg PO DAILY Mirtazapine [Remeron] 45 mg PO HS Rosuvastatin Calcium [Crestor] 40 mg PO HS fentaNYL 25MCG/HR PATCH [Duragesic 25MCG/HR] 1 patch TRANSDERM Q72H #0 Insulin Aspart [NovoLOG Flexpen] 36 units SQ AC-SUPPER Insulin Aspart [NovoLOG Flexpen] 26 unit SQ AC-BRKFST Insulin Aspart [NovoLOG Flexpen] 26 unit SQ AC-LUNCH Pancreatic Enzymes Otc(Unknown) 1 cap PO AC-TID Niacin 1,000 mg PO HS Insulin Detemir [Levemir] 66 unit SQ HS Gemfibrozil [Lopid] 600 mg PO AC-BID Metoclopramide [Reglan] 5 mg PO QID clonazePAM [KlonoPIN] 1 mg PO DAILY tab clonazePAM [KlonoPIN] 2 mg PO HS tab Gabapentin [Neurontin] 200 mg PO BID cap Discharge Medication List Lisinopril [Zestril] 20 mg PO DAILY 09/09/13 [History] Sertraline [Zoloft] 200 mg PO DAILY tab 08/09/14 [Rx] Multivitamins, Thera [Multivitamin (formulary)] 1 tab PO DAILY 09/17/14 [History ] Atenolol [Tenormin] 100 mg PO DAILY 11/19/14 [History] Calcium Carb-Vit D 500Mg-200Un [Oscal 500+D] 1 tab PO BID 11/19/14 [History] Mirtazapine [Remeron] 45 mg PO HS 11/19/14 [History] Rosuvastatin Calcium [Crestor] 40 mg PO HS 11/19/14 [History] fentaNYL 25MCG/HR PATCH [Duragesic 25MCG/HR] 1 patch TRANSDERM Q72H #0 07/10/15 [Rx] Insulin Aspart [NovoLOG Flexpen] 26 unit SQ AC-BRKFST 10/14/15 [History] Insulin Aspart [NovoLOG Flexpen] 26 unit SQ AC-LUNCH 10/14/15 [History] Insulin Aspart [NovoLOG Flexpen] 36 units SQ AC-SUPPER 10/14/15 [History] Pancreatic Enzymes Otc(Unknown) 1 cap PO AC-TID 10/14/15 [History] Niacin 1,000 mg PO HS 02/04/16 [History] Insulin Detemir [Levemir] 66 unit SQ HS 07/21/16 [History] Gemfibrozil [Lopid] 600 mg PO AC-BID 07/02/17 [History] Metoclopramide [Reglan] 5 mg PO QID 10/12/17 [History] clonazePAM [KlonoPIN] 1 mg PO DAILY tab 10/14/17 [Rx] clonazePAM [KlonoPIN] 2 mg PO HS tab 10/14/17 [Rx] Gabapentin [Neurontin] 200 mg PO BID cap 12/09/17 [Rx] Follow up Appointment(s)/Referral(s): Mike Borges MD [Primary Care Provider] - 01/26/18 8:30 am ( with SITE AUDITOR) Patient Instructions/Handouts: Diabetic Ketoacidosis (DC), Lactic Acidosis (GEN ) Discharge Disposition: HOME SELF-CARE
== END 2018-01-20 10:22 | disposition home or self-care (01) | DRG 638 ==
LOC: EC 18:44 → 6SEL 21:14
PROVIDERS: ADMIT Internal Medicine; ATTEND Internal Medicine
DX: E11.00 Type 2 diabetes mellitus with hyperosmolarity without nonketotic hyperglycemic-hyperosmolar coma (NKHHC) (principal); F33.9 Major depressive disorder, recurrent, unspecified; K86.1 Other chronic pancreatitis; E11.10 Type 2 diabetes mellitus with ketoacidosis without coma; E86.0 Dehydration; I11.9 Hypertensive heart disease without heart failure; E78.5 Hyperlipidemia, unspecified; E11.42 Type 2 diabetes mellitus with diabetic polyneuropathy; F41.1 Generalized anxiety disorder; E11.43 Type 2 diabetes mellitus with diabetic autonomic (poly)neuropathy; K31.84 Gastroparesis; K21.9 Gastro-esophageal reflux disease without esophagitis; G89.4 Chronic pain syndrome; R19.7 Diarrhea, unspecified; W19.XXXA Unspecified fall, initial encounter; Z79.4 Long term (current) use of insulin; Z86.19 Personal history of other infectious and parasitic diseases; Z79.899 Other long term (current) drug therapy; Z88.6 Allergy status to analgesic agent; Y92.002 Bathroom of unspecified non-institutional (private) residence as the place of occurrence of the external cause
CPT/HCPCS: 36415; 70450; 74018; 80048; 80051; 80053; 81003; 82009; 82150; 82565; 82947; 83605; 83690; 84100; 84520; 85025; 85610; 85730; 96361; 96374; 96375; 99285

== ENCOUNTER → 2018-07-14 | Outpatient (CLI) | payer MEDICARE ==
--- NOTE | 2018-07-17 10:04 | MM ---
Reason for exam: screening (asymptomatic). Last mammogram was performed 3 years and 7 months ago. History: Patient is postmenopausal. Family history of breast cancer in maternal aunt and premenopausal breast cancer in mother at age 38. Taking hormonal contraceptives for 30 years beginning at age 17. Physical Findings: A clinical breast exam by your physician is recommended on an annual basis and results should be correlated with mammographic findings. MG 3D Screening Mammo W/Cad Bilateral CC and MLO view(s) were taken. Prior study comparison: December 03, 2014, bilateral MG screening mammo w CAD. July 17, 2013, bilateral digital screening mammo w/CAD. The breast tissue is heterogeneously dense. This may lower the sensitivity of mammography. No significant changes when compared with prior studies. ASSESSMENT: Benign, BI-RAD 2 RECOMMENDATION: Routine screening mammogram of both breasts in 1 year.
--- NOTE | 2018-07-18 13:26 | BD ---
EXAMINATION TYPE: Axial Bone Density DATE OF EXAM: 07/14/2018 COMPARISON: NONE CLINICAL HISTORY: 53 YR OLD FEMALE....ICD-10 CODE: M89.9 DISORDER OF BONE Height: 63.4 Weight: 143 FRAX RISK QUESTIONS: Secondary Osteoporosis: YES 1. Type 1 Diabetes: YES 3. Menopause before 45: YES, AT 43 YRS OLD RISK FACTORS HISTORY OF: Family History of Osteoporosis: YES, HER GRANDMOTHER..NO HIP FX Active: YES Postmenopausal woman: YES, AT AGE 43 YRS OLD If Premenopausal, do you have irregular periods: BCP FOR 30 YRS IN THE PAST MEDICATIONS: Thyroid Medications: SYNTHROID IN THE PAST, STOPPED 2-3 YRS AGO Additional Medications: BP MEDS, ZOLOFT, CLONOPIN ETC..., INSULIN, REFLUX MED, STATIN FOR CHOLESTEROL , CALCIUM AND VIT D, Additional History: HYPERTENSION, INSULIN DEPENDENT DIABETIC, DEPRESSION, CHOLESTEROL EXAM MEASUREMENTS: Bone mineral densitometry was performed using the [employer] System. Bone mineral density as measured about the Lumbar spine is: ----- L1-L4(G/cm2): 0.988 T Score Values are as follows: ----- L1: -1.2 ----- L2: -2.1 ----- L3: -1.9 ----- L4: -1.3 ----- L1-L4: -1.6 Bone mineral density FIRST DEXA SCAN....BASELINE STUDY Bone mineral density about the R hip (g/cm2): 0.854 Bone mineral density about the L hip (g/cm2): 0.868 T Score values are as follows: -----R Neck: -1.9 -----L Neck: -1.8 -----R Total: -1.2 -----L Total: -1.1 Bone mineral density IS A BASELINE DEXA STUDY FRAX%s: THERE IS A 7.4% CHANCE FOR A MAJOR OSTEOPOROTIC FX AND A 0.8% FOR HIP.....PROBABILITY OF FX IN 10 YRS TIME IMPRESSION: Osteopenia (T Score between -2.5 and -1) in low back and both hips. There is slightly increased risk of fracture and the patient may be considered for treatment. Re-Screen 2-5 years. NOTE: T-SCORE=SD OF THE YOUNG ADULT MEAN.
== END | disposition home or self-care (01) ==
LOC: RADMAMWWP 13:36
PROVIDERS: ATTEND Internal Medicine
DX: Z12.31 Encounter for screening mammogram for malignant neoplasm of breast (principal); M85.851 Other specified disorders of bone density and structure, right thigh; M85.852 Other specified disorders of bone density and structure, left thigh; M85.88 Other specified disorders of bone density and structure, other site
CPT/HCPCS: 77063; 77067; 77080

== ENCOUNTER 2018-08-14 19:10 | Inpatient (IN) | payer MEDICARE ==
--- NOTE | 2018-08-14 19:22 | ED ---
General Adult HPI - General Source: patient, RN notes reviewed, old records reviewed Mode of arrival: ambulatory Limitations: no limitations - History of Present Illness MD Complaint: Suicidal thoughts -: unknown Severity scale (1-10): 8 Quality: constant Consistency: constant Improves with: medication Worsens with: none Associated Symptoms: denies other symptoms Treatments Prior to Arrival: none <Deangelo Gonzalez - Last Filed: 08/14/18 20:41> <Jerman Koo - Last Filed: 08/14/18 22:19> - General Chief complaint: Psychiatric Symptoms Stated complaint: Mental Health - History of Present Illness Initial comments: This is a 53-year-old female the ER for evaluation. Patient presents today for evaluation regards to psychiatric illness. Patient has history of depression. Depression is worsening currently. Patient denies recent drug or alcohol abuse (Deangelo Gonzalez) - Related Data Home Medications Medication Instructions Recorded Confirmed Lisinopril [Zestril] 20 mg PO DAILY 09/09/13 08/14/18 Multivitamins, Thera [Multivitamin 1 tab PO DAILY 09/17/14 08/14/18 (formulary)] Atenolol [Tenormin] 100 mg PO DAILY 11/19/14 08/14/18 Calcium Carb-Vit D 500Mg-200Un 1 tab PO BID 11/19/14 08/14/18 [Oscal 500+D] Mirtazapine [Remeron] 45 mg PO HS 11/19/14 08/14/18 Rosuvastatin Calcium [Crestor] 40 mg PO HS 11/19/14 08/14/18 Insulin Aspart [NovoLOG Flexpen] 26 unit SQ AC-BRKFST 10/14/15 08/14/18 Insulin Aspart [NovoLOG Flexpen] 26 unit SQ AC-LUNCH 10/14/15 08/14/18 Insulin Aspart [NovoLOG Flexpen] 36 units SQ AC-SUPPER 10/14/15 08/14/18 Niacin 1,000 mg PO HS 02/04/16 08/14/18 Insulin Detemir (Levemir) [Levemir] 66 unit SQ HS 07/21/16 08/14/18 Gemfibrozil [Lopid] 600 mg PO AC-BID 07/02/17 08/14/18 fentaNYL 12MCG/HR PATCH [Duragesic 1 patch TRANSDERM Q72H 08/14/18 08/14/18 12MCG/HR] Previous Rx's Medication Instructions Recorded Sertraline [Zoloft] 200 mg PO DAILY tab 08/09/14 clonazePAM [KlonoPIN] 1 mg PO DAILY tab 10/14/17 clonazePAM [KlonoPIN] 2 mg PO HS tab 10/14/17 Gabapentin [Neurontin] 200 mg PO BID cap 12/09/17 Allergies Allergy/AdvReac Type Severity Reaction Status Date / Time NSAIDS (Non-Steroidal Allergy Rash/Hives Verified 08/14/18 20:06 Anti-Inflamma Review of Systems ROS Other: All systems not noted in ROS Statement are negative. <Deangelo Gonzalez - Last Filed: 08/14/18 20:41> ROS Other: All systems not noted in ROS Statement are negative. <Jerman Koo - Last Filed: 08/14/18 22:19> ROS Statement: Those systems with pertinent positive or pertinent negative responses have been documented in the HPI. Past Medical History Past Medical History: Coronary Artery Disease (CAD), Diabetes Mellitus, GERD/Reflux, Hyperlipidemia, Hypertension, Syncope Additional Past Medical History / Comment(s): IDDM type II, recurrent DKA, episodes of hyperosmolar nonketonic hyperglycemia, hypertensive heart disease, chronic pain syndrome, hypertriglyceridemia, chronic pancreatitis, chronic ab dominal pain, gastroparesis, severe GERD, diabetic polyneuropathy mostly in hands and alittle in feet bilaterally, infectious colitis. History of Any Multi-Drug Resistant Organisms: C-DIFF Date of last positivie culture/infection: pt. unsure MDRO Source:: stool Past Surgical History: Cholecystectomy Additional Past Surgical History / Comment(s): Biliary stent through an ERCP that was performed at [facility] and stent removed 2007, lap jenn, colonoscopy, ERCP. Past Anesthesia/Blood Transfusion Reactions: No Reported Reaction Additional Past Anesthesia/Blood Transfusion Reaction / Comment(s): Pt has never received blood."CLAUSTERPHOBIA" Past Psychological History: Anxiety, Depression, Panic Disorder, PTSD Smoking Status: Never smoker Past Alcohol Use History: Rare Past Drug Use History: None Reported - Past Family History Sister(s) Additional Family Medical History / Comment(s): Patient has 2 sisters with no major medical problems. Daughter(s) Additional Family Medical History / Comment(s): Patient has 2 daughters and one had mitral valve replacement. Son(s) Additional Family Medical History / Comment(s): She has one son with no major medical problems. Brother(s) Additional Family Medical History / Comment(s): Does not have any brothers. Father Family Medical History: No Reported History Additional Family Medical History / Comment(s): Father is 79 years of age with severe anxiety and was hospitalized for this at times. Mother Family Medical History: Cancer Additional Family Medical History / Comment(s): Mother of metastatic breast CA at the age of 42yrs. pt. states her grandmother had diabetes as well <Deangelo Gonzalez - Last Filed: 08/14/18 20:41> General Exam Limitations: no limitations General appearance: alert, in no apparent distress Head exam: Present: atraumatic, normocephalic, normal inspection Eye exam: Present: normal appearance, PERRL, EOMI. Absent: scleral icterus, conjunctival injection, periorbital swelling ENT exam: Present: normal exam, mucous membranes moist Neck exam: Present: normal inspection. Absent: tenderness, meningismus, lymphadenopathy Respiratory exam: Present: normal lung sounds bilaterally. Absent: respiratory distress, wheezes, rales, rhonchi, stridor Cardiovascular Exam: Present: regular rate, normal rhythm, normal heart sounds. Absent: systolic murmur, diastolic murmur, rubs, gallop, clicks GI/Abdominal exam: Present: soft, normal bowel sounds. Absent: distended, tenderness, guarding, rebound, rigid Extremities exam: Present: normal inspection, full ROM, normal capillary refill. Absent: tenderness, pedal edema, joint swelling, calf tenderness Back exam: Present: normal inspection Neurological exam: Present: alert, oriented X3, CN II-XII intact Psychiatric exam: Present: normal affect, normal mood Skin exam: Present: warm, dry, intact, normal color. Absent: rash <Deangelo Gonzalez - Last Filed: 08/14/18 20:41> Course <Deangelo Gonzalez - Last Filed: 08/14/18 20:41> <Jerman Koo - Last Filed: 08/14/18 22:19> Vital Signs 08/14/18 19:16 Temperature 98.7 F Pulse Rate 93 Respiratory 18 Rate Blood Pressure 148/86 O2 Sat by Pulse 96 Oximetry - Reevaluation(s) Reevaluation #1: 08/14/18 20:43 Patient's medically clear for psychiatric evaluation (Deangelo Gonzalez) Reevaluation #2: 08/14/18 22:18 This patient was going to be discharged, she stated that she was now feeling suicidal. She was reevaluated by behavioral health and they will admit the patient to the mental health unit. (Jerman Koo) Medical Decision Making <Jerman Koo - Last Filed: 08/14/18 22:19> - Medical Decision Making Patient is been evaluated by behavioral health and cleared to continue as outpatient. (Jerman Koo) - Lab Data Lab Results 08/14/18 Range/Units 20:45 Urine Color Light Yellow Urine Appearance Clear (Clear) Urine pH 7.0 (5.0-8.0) Ur Specific [place] 1.034 (1.001-1.035) Urine Protein Negative (Negative) Urine Glucose (UA) 4+ H (Negative) Urine Ketones Trace H (Negative) Urine Blood Negative (Negative) Urine Nitrite Negative (Negative) Urine Bilirubin Negative (Negative) Urine Urobilinogen <2.0 (<2.0) mg/dL Ur Leukocyte Esterase Moderate H (Negative) Urine RBC 4 (0-5) /hpf Urine WBC 26 H (0-5) /hpf Urine Opiates Screen Not Detected (NotDetected) Ur Oxycodone Screen Not Detected (NotDetected) Urine Methadone Screen Not Detected (NotDetected) Ur Propoxyphene Screen Not Detected (NotDetected) Ur Barbiturates Screen Not Detected (NotDetected) U Tricyclic Antidepress Not Detected (NotDetected) Ur Phencyclidine Scrn Not Detected (NotDetected) Ur Amphetamines Screen Not Detected (NotDetected) U Methamphetamines Scrn Not Detected (NotDetected) U Benzodiazepines Scrn Not Detected (NotDetected) Urine Cocaine Screen Not Detected (NotDetected) U Marijuana (THC) Screen Not Detected (NotDetected) Disposition <Deangelo Gonzalez - Last Filed: 08/14/18 20:41> Is patient prescribed a controlled substance at d/c from ED?: No <Jerman oKo - Last Filed: 08/14/18 22:19> Clinical Impression: Mood disorder, Suicidal ideation Disposition: ADMITTED IP TO THIS HOSP Condition: Fair Instructions (If sedation given, give patient instructions): Mood Disorders (ED) Referrals: Mike Borges MD [Primary Care Provider] - 1-2 days
[2018-08-14 21:02] LABS: Appearance,Urine Clear (Clear); Bilirubin,Urine Negative (Negative); Blood,Urine Negative (Negative); Color,Urine Light Yellow; Glucose,Urine (UA) 4+ (Negative); Ketones,Urine Trace (Negative); Leukocyte Esterase,Urine Moderate (Negative); Nitrite,Urine Negative (Negative); Protein,Urine Negative (Negative); RBC,Urine 4 /hpf (0-5); Specific Gravity,Urine 1.034 (1.001-1.035); Urobilinogen,Urine <2.0 mg/dL (<2.0); WBC,Urine 26 /hpf (0-5)
[2018-08-14 21:11] LABS: Amphetamine Screen,Urine Not Detected (NotDetected); Barbiturate Screen,Urine Not Detected (NotDetected); Benzodiazepines Screen,Urine Not Detected (NotDetected); Cocaine Screen,Urine Not Detected (NotDetected); Methadone Screen, Urine Not Detected (NotDetected); Opiate Screen,Urine Not Detected (NotDetected); Oxycodone Screen, Urine Not Detected (NotDetected); Phencyclidine Screen,Urine Not Detected (NotDetected); Tricyclic Antidepressant,Urine Not Detected (NotDetected); Urn Cannabinoid Scrn Not Detected (NotDetected)
[2018-08-14 22:29] LABS: Glucose,Whole Blood 338 mg/dL (75-99)
[2018-08-14] MEDS ORDERED: SODIUM CHLORIDE 0.9% 2,000 ML IV ONE (22:30)
[2018-08-14] MEDS ORDERED: INSULIN REGULAR 100 UNIT/ML VIAL SQ STA (22:31)
[2018-08-14 23:48] LABS: Glucose,Whole Blood 242 mg/dL (75-99)
[2018-08-15] MEDS ORDERED: ACETAMINOPHEN TAB 325 MG TAB PO PRN (00:03)
[2018-08-15] MEDS ORDERED: MAG HYDROX/AL HYDROX/SIMETH 30 ML CUP PO PRN (00:03)
[2018-08-15] MEDS ORDERED: MAGNESIUM HYDROXIDE 2,400 MG/10 ML CUP PO PRN (00:03)
[2018-08-15] MEDS ORDERED: ZIPRASIDONE 20 MG VIAL IM PRN (00:03)
[2018-08-15] MEDS ORDERED: LORazepam 1 MG TAB PO PRN (00:03)
[2018-08-15] MEDS ORDERED: LORazepam 2 MG/ML INJ IM PRN (00:09)
[2018-08-15] MEDS: MIRTAZAPINE 45 MG TABLET PO SCH ×2 (00:54→21:28)
[2018-08-15] MEDS: NIACIN TR 500 MG CAPLET PO SCH ×2 (00:54→21:28)
[2018-08-15] MEDS: ATORVASTATIN 80 MG TAB PO SCH ×2 (00:54→21:25)
[2018-08-15] MEDS: INSULIN DETEMIR (LEVEMIR) 100 UNIT/ML SYR SQ SCH ×2 (00:55→20:30)
[2018-08-15 06:37] LABS: Glucose,Whole Blood 112 mg/dL (75-99)
[2018-08-15] MEDS ORDERED: INSULIN ASPART (NovoLOG) 100 UNIT/ML VIAL SQ SCH ×3 (07:30→17:30)
[2018-08-15] MEDS: GABAPENTIN 100 MG CAP PO SCH ×2 (08:43→21:28)
[2018-08-15] MEDS: LISINOPRIL 20 MG TAB PO SCH (08:43)
[2018-08-15] MEDS: FENOFIBRATE 160 MG TAB PO SCH (08:43)
[2018-08-15] MEDS: MULTIVITAMINS, THERA 1 EACH TAB PO SCH (08:43)
[2018-08-15] MEDS: CALCIUM CARB-VIT D 500MG-200UN 1 EACH TAB PO SCH ×2 (08:52→21:26)
[2018-08-15] MEDS: ATENOLOL 50 MG TAB PO SCH (08:54)
[2018-08-15] MEDS ORDERED: SERTRALINE 100 MG TAB PO SCH (09:00)
[2018-08-15 10:00] LABS: Basophils % (A) 1 %; Eosinophils # (A) 0.1 k/uL (0-0.7); Eosinophils % (A) 2 %; HCT 39.3 % (34.0-46.0); HGB 13.2 gm/dL (11.4-16.0); Lymphocytes # (A) 2.4 k/uL (1.0-4.8); Lymphocytes % (A) 40 %; MCH 30.6 pg (25.0-35.0); MCHC 33.6 g/dL (31.0-37.0); MCV 91.2 fL (80.0-100.0); Mean Platelet Volume 6.4; Monocytes # (A) 0.3 k/uL (0-1.0); Monocytes % (A) 6 %; Neutrophils % (A) 50 %; Platelet Count 165 k/uL (150-450); RBC 4.31 m/uL (3.80-5.40); RDW 13.1 % (11.5-15.5); WBC 6.1 k/uL (3.8-10.6)
[2018-08-15 10:05] LABS: ALT 28 U/L (9-52); AST 21 U/L (14-36); Albumin 3.9 g/dL (3.5-5.0); Alkaline Phosphatase 78 U/L (38-126); Anion Gap 10 mmol/L; Blood Urea Nitrogen 13 mg/dL (7-17); Calcium 8.9 mg/dL (8.4-10.2); Carbon Dioxide 23 mmol/L (22-30); Chloride 108 mmol/L (98-107); Cholesterol 253 mg/dL (<200); Glucose 255 mg/dL (74-99); HDL Cholesterol 34 mg/dL (40-60); Potassium 4.7 mmol/L (3.5-5.1); Sodium 141 mmol/L (137-145); Total Bilirubin 0.9 mg/dL (0.2-1.3); Total Protein 6.1 g/dL (6.3-8.2)
[2018-08-15 10:16] LABS: Triglycerides 684 mg/dL (<150)
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
[2018-08-15 12:40] LABS: Glucose,Whole Blood 104 mg/dL (75-99)
--- NOTE | 2018-08-15 13:51 | P.MDCNMH ---
History of Present Illness H&P Date: 08/15/18 Chief Complaint: Medical management This is a 53-year-old female patient of Dr. Borges with previous medical history significant for familial dyslipidemia, recurrent pancreatitis and chronic abdominal pain, thought to be due to hypertriglyceridemia, hypertension and hypertensive cardiovascular disease, diabetes mellitus type 2 with recurrent diabetic ketoacidosis as well as episodes of hyperosmolar nonketotic hyperglycemia, hypertensive cardiovascular disease, chronic pain syndrome, gastroparesis, gastroesophageal reflux disease, diabetic polyneuropathy. Patient gives history that she has had flashbacks due to her PTSD and the anniversary of her mother's will be coming up in August and she has had increased depression with suicidal ideation without a plan. She states she brought herself into [facility] emergency center for evaluation. Vital signs were stable. Urinalysis revealed 4+ glucose, leukoesterase moderate, RBCs 4 and a PVCs 26. Urine drug screen was negative. Her initial blood sugar was 338. This morning 255, TSH 2.4, triglyceride 684, cholesterol 253. HDL 34. Patient was provided 6 units of regular insulin in the emergency center in 2 L of IV fluid. Patient was subsequently admitted to the mental health unit and has been seen by Dr. Jefferson with plan to transition off Zoloft and start Prozac, ovoid Ativan and gradually wean off Klonopin. Patient appears to be very positive about this plan of care. Review of Systems Constitutional: Reports poor appetite, Denies chills, Denies fever Eyes: denies blurred vision, denies pain Ears, nose, mouth and throat: Denies headache, Denies sore throat Cardiovascular: Denies chest pain, Denies lightheadedness, Denies shortness of breath, Denies syncope Respiratory: Denies cough, Denies cough with sputum, Denies dyspnea, Denies excessive sputum, Denies hemoptysis, Denies home oxygen, Denies wheezing Gastrointestinal: Reports abdominal pain, Reports diarrhea, Reports loss of appetite, Reports nausea, Reports vomiting Genitourinary: Denies dysuria, Denies hematuria Musculoskeletal: Denies myalgias Integumentary: Denies pruritus, Denies rash Neurological: Denies numbness, Denies weakness Psychiatric: Reports PTSD, reports anxiety, reports depression Endocrine: Denies fatigue, Denies weight change Past Medical History Past Medical History: Coronary Artery Disease (CAD), Diabetes Mellitus, GERD/Reflux, Hyperlipidemia, Hypertension, Syncope Additional Past Medical History / Comment(s): IDDM type II, recurrent DKA, episodes of hyperosmolar nonketonic hyperglycemia, hypertensive heart disease, chronic pain syndrome, hypertriglyceridemia, chronic pancreatitis, chronic abdominal pain, gastroparesis, severe GERD, diabetic polyneuropathy mostly in hands and alittle in feet bilaterally, infectious colitis. History of Any Multi-Drug Resistant Organisms: C-DIFF Date of last positivie culture/infection: pt. unsure MDRO Source:: stool Past Surgical History: Cholecystectomy Additional Past Surgical History / Comment(s): Biliary stent through an ERCP stevo t was performed at [facility] and stent removed 2007, lap jenn, colonoscopy, ERCP. Past Anesthesia/Blood Transfusion Reactions: No Reported Reaction Additional Past Anesthesia/Blood Transfusion Reaction / Comment(s): Pt has never received blood."CLAUSTERPHOBIA" Past Psychological History: Anxiety, Depression, Panic Disorder, PTSD Additional Psychological History / Comment(s): Pt lives in her own home. She is independent. She currently is on disability. She drives a car a limited amount- family drive her places at times. She has anxiety and occasional anxiety-panic attacks. She states her current psych [facility] is working well. She has a rescue dog. Smoking Status: Never smoker Past Alcohol Use History: Rare Additional Past Alcohol Use History / Comment(s): patient lives at home alone with dog. She is independent. She is currently on disability. She drives a car limited amount. She has anxiety and occasional anxiety or panic attacks. She sees Dr. Fink at [facility]. Her daughter and father help her out. She has a rescue dog. Past Drug Use History: None Reported - Past Family History Sister(s) Additional Family Medical History / Comment(s): Patient has 2 sisters with no major medical problems. Daughter(s) Additional Family Medical History / Comment(s): Patient has 2 daughters and one had mitral valve replacement. Son(s) Additional Family Medical History / Comment(s): She has one son with no major medical problems. Brother(s) Additional Family Medical History / Comment(s): Does not have any brothers. Father Family Medical History: No Reported History Additional Family Medical History / Comment(s): Father is 81 years of age with severe anxiety and was hospitalized for this at times. Mother Family Medical History: Cancer Additional Family Medical History / Comment(s): Mother of metastatic breast CA at the age of 42yrs. pt. states her grandmother had diabetes as well Medications and Allergies Home Medications Medication Instructions Recorded Confirmed Type Lisinopril [Zestril] 20 mg PO DAILY 09/09/13 08/15/18 History Sertraline [Zoloft] 200 mg PO DAILY tab 08/09/14 08/15/18 Rx Multivitamins, Thera [Multivitamin 1 tab PO DAILY 09/17/14 08/15/18 History (formulary)] Atenolol [Tenormin] 100 mg PO DAILY 11/19/14 08/15/18 History Calcium Carb-Vit D 500Mg-200Un 1 tab PO BID 11/19/14 08/15/18 History [Oscal 500+D] Mirtazapine [Remeron] 45 mg PO HS 11/19/14 08/15/18 History Rosuvastatin Calcium [Crestor] 40 mg PO HS 11/19/14 08/15/18 History Insulin Aspart [NovoLOG Flexpen] 26 unit SQ AC-BRKFST 10/14/15 08/15/18 History Insulin Aspart [NovoLOG Flexpen] 26 unit SQ AC-LUNCH 10/14/15 08/15/18 History Insulin Aspart [NovoLOG Flexpen] 36 units SQ AC-SUPPER 10/14/15 08/15/18 History Niacin 1,000 mg PO HS 02/04/16 08/15/18 History Insulin Detemir (Levemir) [Levemir] 66 unit SQ HS 07/21/16 08/15/18 History Gemfibrozil [Lopid] 600 mg PO AC-BID 07/02/17 08/15/18 History clonazePAM [KlonoPIN] 1 mg PO DAILY tab 10/14/17 08/15/18 Rx clonazePAM [KlonoPIN] 2 mg PO HS tab 10/14/17 08/15/18 Rx Gabapentin [Neurontin] 200 mg PO BID cap 12/09/17 08/15/18 Rx fentaNYL 12MCG/HR PATCH [Duragesic 1 patch TRANSDERM Q72H 08/14/18 08/15/18 History 12MCG/HR] Allergies Allergy/AdvReac Type Severity Reaction Status Date / Time NSAIDS (Non-Steroidal Allergy Rash/Hives Verified 08/15/18 01:11 Anti-Inflamma Physical Exam Vitals: Vital Signs Temp Pulse Pulse Resp BP BP Pulse Ox 08/15/18 01:07 97.0 F L 73 14 133/81 08/15/18 00:27 97.0 F L 73 14 133/81 08/14/18 23:57 98.0 F 76 18 106/66 96 08/14/18 19:16 98.7 F 93 18 148/86 96 Intake and Output 08/14/18 08/15/18 08/15/18 22:59 06:59 14:59 Intake Total 1999 Balance 1999 Intake: Amount of Fluid Infused ( 2000 ml) Other: Weight 67.6 kg General appearance: average body habitus, no acute distress, patient is c ooperative - EENT Eyes: anicteric sclerae, EOMI, PERRLA, no ptosis, no scleral icterus, normal appearance ENT: hearing grossly normal, NA/AT, normal oropharynx, no thrush Ears: bilateral: normal - Neck Neck: no lymphadenopathy, normal ROM, no rigidity, no stridor, no thyromegaly Carotids: bilateral: upstroke normal Thyroid: bilateral: normal size - Respiratory Respiratory: bilateral: CTA, negative: diminished, dullness, rales, rhonchi, wheezing, prolonged expiration, prolonged inspiration - Cardiovascular Rhythm: regular Heart sounds: normal: S1, S2 Abnormal Heart Sounds: no systolic murmur, no S3 Gallop, no S4 Gallop - Gastrointestinal General gastrointestinal: normal bowel sounds, soft, tenderness to the epigastric area, no umbilical hernia, no ventral hernia - Integumentary Integumentary: normal, normal turgor - Neurologic Neurologic: CNII-XII intact - Musculoskeletal Musculoskeletal: gait normal, strength equal bilaterally - Psychiatric Psychiatric: A&O x's 3, appropriate affect, intact judgment & insight Cranial Nerve Examination - Cranial Nerves Cranial Nerve II- Optic: Intact Cranial Nerve III- Oculomotor: Intact Cranial Nerve IV- Trochlear: Intact Cranial Nerve V- Trigeminal: Intact Cranial Nerve - Abducens: Intact Cranial Nerve VII- Facial: Intact Cranial Nerve VIII- Auditory: Intact Cranial Nerve IX- Glossopharyngeal: Intact Cranial Nerve X- Vagus: Intact Cranial Nerve XI- Accessory: Intact Cranial Nerve XII- Hypoglossal: Intact Results CBC & Chem 7: 08/15/18 08:51 08/15/18 08:51 Labs: Abnormal Lab Results - Last 24 Hours (Table) 08/14/18 08/14/18 08/14/18 Range/Units 20:45 22:26 23:45 Chloride (98-107) mmol/L Creatinine (0.52-1.04) mg/dL Glucose (74-99) mg/dL POC Glucose (mg/dL) 338 H 242 H (75-99) mg/dL Total Protein (6.3-8.2) g/dL Triglycerides (<150) mg/dL Cholesterol (<200) mg/dL HDL Cholesterol (40-60) mg/dL Urine Glucose (UA) 4+ H (Negative) Urine Ketones Trace H (Negative) Ur Leukocyte Esterase Moderate H (Negative) Urine WBC 26 H (0-5) /hpf 08/15/18 08/15/18 Range/Units 06:27 08:51 Chloride 108 H (98-107) mmol/L Creatinine 0.51 L (0.52-1.04) mg/dL Glucose 255 H (74-99) mg/dL POC Glucose (mg/dL) 112 H (75-99) mg/dL Total Protein 6.1 L (6.3-8.2) g/dL Triglycerides 684 H (<150) mg/dL Cholesterol 253 H (<200) mg/dL HDL Cholesterol 34 L (40-60) mg/dL Urine Glucose (UA) (Negative) Urine Ketones (Negative) Ur Leukocyte Esterase (Negative) Urine WBC (0-5) /hpf Assessment and Plan Plan: 1. Recurrent depression with suicidal ideation. Patient admitted to health unit. Continue current plan per psychiatrist. 2. Diabetes mellitus type 2, insulin requiring. Patient is on Levemir 66 units at bedtime along with Humalog scheduled 26 units with breakfast and lunch and 36 with supper. 3. Hypertension and hypertensive cardiovascular disease with left ventricular hypertrophy. Continue atenolol 100 mg orally once every day as well as lisinopril 20 mg orally once every day. 4. Hyperlipidemia. Continue crestor 40 mg orally once every day, fenofibrate 160 mg orally once every day, Niacin 1000 mg orall daily. 5. Diabetic polyneuropathy. Continue gabapentin 200 mg orally twice every day. 6. Generalized anxiety disorder. Continue Klonopin 2 milligram in the evening and 1 mg in the morning. 7. Gastroparesis. 8. Chronic pancreatitis, stable without exacerbation. Discharge plan: Return home. Follow-up with Dr. Borges as an outpatient. Impression and plan of care have been directed as dictated by the signing physic ian. Amanda Kumar nurse practitioner acting as scribe for signing physician.
[2018-08-15 17:31] LABS: Glucose,Whole Blood 89 mg/dL (75-99)
[2018-08-15] MEDS: INSULIN ASPART (NovoLOG) 100 UNIT/ML VIAL SQ SCH (18:23)
[2018-08-15 19:12] LABS: Glucose,Whole Blood 164 mg/dL (75-99)
[2018-08-15 19:19] LABS: Hemoglobin A1C 10.9 % (4.0-6.0)
[2018-08-15 20:41] LABS: Glucose,Whole Blood 129 mg/dL (75-99)
[2018-08-15] MEDS: clonazePAM 1 MG TAB PO SCH (21:28)
[2018-08-16 06:37] LABS: Glucose,Whole Blood 103 mg/dL (75-99)
[2018-08-16] MEDS ORDERED: INSULIN ASPART (NovoLOG) 100 UNIT/ML VIAL SQ SCH (07:30)
[2018-08-16] MEDS: MULTIVITAMINS, THERA 1 EACH TAB PO SCH (08:18)
[2018-08-16] MEDS: FLUoxetine HCL 10 MG CAP PO SCH (08:18)
[2018-08-16] MEDS: LISINOPRIL 20 MG TAB PO SCH (08:18)
[2018-08-16] MEDS: CALCIUM CARB-VIT D 500MG-200UN 1 EACH TAB PO SCH ×2 (08:18→21:25)
[2018-08-16] MEDS: ATENOLOL 50 MG TAB PO SCH (08:18)
[2018-08-16] MEDS: PANTOPRAZOLE 40 MG TABLET PO SCH (08:18)
[2018-08-16] MEDS: clonazePAM 1 MG TAB PO SCH ×2 (08:19→21:26)
[2018-08-16] MEDS: SERTRALINE 100 MG TAB PO SCH (08:19)
[2018-08-16] MEDS: GABAPENTIN 100 MG CAP PO SCH ×2 (08:19→21:25)
[2018-08-16] MEDS: INSULIN ASPART (NovoLOG) 100 UNIT/ML VIAL SQ SCH ×3 (08:19→18:25)
[2018-08-16] MEDS: FENOFIBRATE 160 MG TAB PO SCH (08:20)
--- NOTE | 2018-08-16 11:26 | P.PN ---
Progress Note - Text Interval history: The patient is found in the [facility] working on a puzzle. She indicates her mood is a little better today. She feels safe. She has been attending groups. Staff report that she is contributing in groups. We reviewed her psychotropic medications her questions were answered. She indicates sleeping better last night appetite is stable. She was seen by her primary care physician. Mental status exam: The patient is alert she has a disheveled appearance she is dressed in the same clothing is yesterday. Hygiene is adequate. Speech is fluent spontaneous nonpressured she is verbose at times. She continues to be circumstantial. She indicates her mood is better in that she feels safe here. No acute suicidal ideation here on the mental health unit. No report of symptoms of psychosis. She doesn't appear hypomanic or manic. She demonstrates no verbal or physical aggressiveness. No involuntary repetitive movements. Insight and judgment improving. Plan: The patient will continue on her current psychotropic medications or plan is to cross titrate off of Zoloft on the Prozac. We will reduce Zoloft further tomorrow. We will monitor her for safety and encourage participation in the milieu.
[2018-08-16 12:33] LABS: Glucose,Whole Blood 198 mg/dL (75-99)
[2018-08-16 15:15] VITALS: BMI 25.5
[2018-08-16 18:02] LABS: Glucose,Whole Blood 158 mg/dL (75-99)
[2018-08-16 20:39] LABS: Glucose,Whole Blood 260 mg/dL (75-99)
[2018-08-16] MEDS: MIRTAZAPINE 45 MG TABLET PO SCH (21:25)
[2018-08-16] MEDS: ATORVASTATIN 80 MG TAB PO SCH (21:25)
[2018-08-16] MEDS: NIACIN TR 500 MG CAPLET PO SCH (21:25)
[2018-08-16] MEDS: INSULIN DETEMIR (LEVEMIR) 100 UNIT/ML SYR SQ SCH (21:26)
[2018-08-17 06:50] VITALS: TEMP 97.8
[2018-08-17 06:57] LABS: Glucose,Whole Blood 208 mg/dL (75-99)
[2018-08-17] MEDS: GABAPENTIN 100 MG CAP PO SCH ×2 (08:39→21:36)
[2018-08-17] MEDS: MULTIVITAMINS, THERA 1 EACH TAB PO SCH (08:40)
[2018-08-17] MEDS: PANTOPRAZOLE 40 MG TABLET PO SCH (08:40)
[2018-08-17] MEDS: FLUoxetine HCL 10 MG CAP PO SCH (08:40)
[2018-08-17] MEDS: CALCIUM CARB-VIT D 500MG-200UN 1 EACH TAB PO SCH ×2 (08:40→21:37)
[2018-08-17] MEDS: ATENOLOL 50 MG TAB PO SCH ×2 (08:40→09:27)
[2018-08-17] MEDS: SERTRALINE 100 MG TAB PO SCH (08:40)
[2018-08-17] MEDS: FENOFIBRATE 160 MG TAB PO SCH (08:40)
[2018-08-17] MEDS: clonazePAM 1 MG TAB PO SCH ×2 (08:42→21:36)
[2018-08-17] MEDS: INSULIN ASPART (NovoLOG) 100 UNIT/ML VIAL SQ SCH ×3 (08:44→17:37)
[2018-08-17] MEDS: LISINOPRIL 20 MG TAB PO SCH (08:46)
--- NOTE | 2018-08-17 09:27 | P.PN ---
Progress Note - Text Interval history: The patient is found in her room she follows me to an interview room. She states her mood is improving. She feels that she slept well last night. She has been attending groups. We reviewed her psychotropic medications her questions were answered. She indicates she had a good visit from her friend last evening. We discussed planning for her outpatient care. Mental status exam: The patient is alert she is dressed in her own clothing hygiene is adequate she has a disheveled appearance. She indicates her mood is improving she is reporting no acute suicidal ideation intent or plan. She reports no auditory or visual hallucinations or any specific delusions. There is no observed evidence of psychosis. She does not appear hypomanic or manic. There is no evidence of tangential thinking loose associations or flight of ideas. She demonstrates no verbal or physical aggressiveness. She demonstrates no involuntary reported of movements. Insight and judgment improving. Affect is constricted. Plan: The patient appears to be clinically stabilizing. We will consider discharging her tomorrow. The Zoloft will be reduced further the Prozac will be titrated to 20 mg daily. She is encouraged to continue participating fully in the milieu. Social work will arrange a support meeting. We will continue mo nitoring her for safety. Vital signs reviewed.
[2018-08-17 12:40] LABS: Glucose,Whole Blood 191 mg/dL (75-99)
[2018-08-17 17:27] LABS: Glucose,Whole Blood 150 mg/dL (75-99)
[2018-08-17 20:04] LABS: Glucose,Whole Blood 162 mg/dL (75-99)
[2018-08-17] MEDS: INSULIN DETEMIR (LEVEMIR) 100 UNIT/ML SYR SQ SCH (20:29)
[2018-08-17] MEDS: NIACIN TR 500 MG CAPLET PO SCH (21:36)
[2018-08-17] MEDS: MIRTAZAPINE 45 MG TABLET PO SCH (21:36)
[2018-08-17] MEDS: ATORVASTATIN 80 MG TAB PO SCH (21:37)
[2018-08-18 06:31] LABS: Glucose,Whole Blood 198 mg/dL (75-99)
[2018-08-18 06:38] VITALS: BP 122/84; PULSE 73; RESP 14
[2018-08-18] MEDS: GABAPENTIN 100 MG CAP PO SCH (08:33)
[2018-08-18] MEDS: PANTOPRAZOLE 40 MG TABLET PO SCH (08:34)
[2018-08-18] MEDS: MULTIVITAMINS, THERA 1 EACH TAB PO SCH (08:34)
[2018-08-18] MEDS: clonazePAM 1 MG TAB PO SCH (08:34)
[2018-08-18] MEDS: CALCIUM CARB-VIT D 500MG-200UN 1 EACH TAB PO SCH (08:34)
[2018-08-18] MEDS: LISINOPRIL 20 MG TAB PO SCH (08:34)
[2018-08-18] MEDS: FENOFIBRATE 160 MG TAB PO SCH (08:34)
[2018-08-18] MEDS: ATENOLOL 50 MG TAB PO SCH (08:34)
[2018-08-18] MEDS: INSULIN ASPART (NovoLOG) 100 UNIT/ML VIAL SQ SCH (08:35)
[2018-08-18] MEDS ORDERED: SERTRALINE 50 MG TAB PO SCH (09:00)
[2018-08-18] MEDS ORDERED: FLUoxetine HCL 20 MG CAP PO SCH (09:00)
--- NOTE | 2018-08-18 10:24 | P.DS ---
Providers Date of admission: 08/14/18 22:22 Expected date of discharge: 08/18/18 Attending physician: Sawyer Jefferson Consults: 08/15/18 00:03 Consult Physician Routine Consulting Provider: Mike Borges Consult Reason/Comments: H&P and medical Do you want consulting provider notified?: Yes Primary care physician: Mike Jony - Discharge Diagnosis(es) (1) Major depressive disorder, recurrent, severe w/o psychotic behavior Current Visit: Yes Status: Acute Priority: High (2) Panic attacks Current Visit: Yes Status: Acute Priority: Medium (3) Post-traumatic stress disorder, chronic Current Visit: Yes Status: Acute Priority: Low Hospital Course: Brief summary of admission note: This patient is a 53-year-old female who was admitted to the mental health unit through the emergency room for suicidal ideation. The patient reported worsening symptoms of depression over the last several days. She noted impairment of sleep appetite and energy. She had been expressing hopelessness thinking with thoughts of overdosing on medications. She reported reexperiencing thoughts related to past trauma and also grieving the loss of her mother several years ago as the anniversary of her was approaching. She described a history of panic attacks. For full details please refer to my psychiatric evaluation dated 08/15/2018. Summary of hospital course: The patient was admitted to the mental health unit voluntarily. We reviewed her presenting symptoms and treatment options. We decided that we would cross taper her off of Zoloft onto Prozac titrating to 40 mg daily. She continued her Remeron 45 mg at bedtime. She was continued on the Klonopin 1 mg in the morning 2 mg at bedtime. She was seen by her primary care physician for routine history and physical exam. She met with social work to complete a psychosocial assessment and for discharge planning purposes. Social work is facilitating a support meeting which will occur today. During the course of the hospitalization the patient reported a progressive improvement of symptoms. She states she's no longer having any acute hopelessness thinking or any suicidal ideation intent or plan. She feels comfortable with medication changes that were made. Mental status exam: The patient is alert she's just her own clothing hygiene grooming are adequate. Speech is fluent spontaneous nonpressured. She can be verbose. She often speaks in a circumstantial manner. There was no evidence of any tangential thinking loose associations or flight of ideas. She describes her mood as being better affect is congruent. She reports no acute hopelessness thinking she reports no suicidal ideation intent or plan no homicidal ideation intent or plan. She reports no auditory or visual hallucinations or any specific delusions. There is no observed evidence of psychosis. She does not appear hypomanic or manic. She demonstrates no involuntary repetitive movements. She demonstrates no verbal or physical aggressiveness. Insight and judgment grossly intact. She spontaneously describes future oriented thinking. She is oriented to person place and date. Impressions 1. Major depressive disorder recurrent severe without psychosis, panic attacks, PTSD chronic Plan: The patient will be discharged mental health unit today to return home following her support meeting. Social work will arrange for outpatient mental health follow-up. The patient will continue on Prozac 40 mg daily and Remeron 45 mg at bedtime. She has been on Klonopin 1 mg in the morning and 2 mg at bedtime for an extended period of time. The hope would be that the Prozac demonstrates efficacy in terms of depression and anxiety and that the Klonopin can be reduced or discontinued. The patient endorses no use of substances. She is no longer at any acute safety risk and is appropriate for transition outpatient care. She is instructed to return to the hospital with any acute safety concerns Patient Condition at Discharge: Stable Plan - Discharge Summary New Discharge Prescriptions: New FLUoxetine HCL [PROzac] 40 mg PO DAILY #30 cap Mirtazapine [Remeron] 45 mg PO HS #30 tablet Continue Lisinopril [Zestril] 20 mg PO DAILY Multivitamins, Thera [Multivitamin (formulary)] 1 tab PO DAILY Calcium Carb-Vit D 500Mg-200Un [Oscal 500+D] 1 tab PO BID Atenolol [Tenormin] 100 mg PO DAILY Rosuvastatin Calcium [Crestor] 40 mg PO HS Insulin Aspart [NovoLOG Flexpen] 36 units SQ AC-SUPPER Insulin Aspart [NovoLOG Flexpen] 26 unit SQ AC-BRKFST Insulin Aspart [NovoLOG Flexpen] 26 unit SQ AC-LUNCH Niacin 1,000 mg PO HS Insulin Detemir (Levemir) [Levemir] 66 unit SQ HS Gemfibrozil [Lopid] 600 mg PO AC-BID clonazePAM [KlonoPIN] 1 mg PO DAILY tab clonazePAM [KlonoPIN] 2 mg PO HS tab Gabapentin [Neurontin] 200 mg PO BID cap Discontinued Sertraline [Zoloft] 200 mg PO DAILY tab Mirtazapine [Remeron] 45 mg PO HS fentaNYL 12MCG/HR PATCH [Duragesic 12MCG/HR] 1 patch TRANSDERM Q72H Discharge Medication List Lisinopril [Zestril] 20 mg PO DAILY 09/09/13 [History] Multivitamins, Thera [Multivitamin (formulary)] 1 tab PO DAILY 09/17/14 [History] Atenolol [Tenormin] 100 mg PO DAILY 11/19/14 [History] Calcium Carb-Vit D 500Mg-200Un [Oscal 500+D] 1 tab PO BID 11/19/14 [History] Rosuvastatin Calcium [Crestor] 40 mg PO HS 11/19/14 [History] Insulin Aspart [NovoLOG Flexpen] 26 unit SQ AC-BRKFST 10/14/15 [History] Insulin Aspart [NovoLOG Flexpen] 26 unit SQ AC-LUNCH 10/14/15 [History] Insulin Aspart [NovoLOG Flexpen] 36 units SQ AC-SUPPER 10/14/15 [History] Niacin 1,000 mg PO HS 02/04/16 [History] Insulin Detemir (Levemir) [Levemir] 66 unit SQ HS 07/21/16 [History] Gemfibrozil [Lopid] 600 mg PO AC-BID 07/02/17 [History] clonazePAM [KlonoPIN] 1 mg PO DAILY tab 10/14/17 [Rx] clonazePAM [KlonoPIN] 2 mg PO HS tab 10/14/17 [Rx] Gabapentin [Neurontin] 200 mg PO BID cap 12/09/17 [Rx] FLUoxetine HCL [PROzac] 40 mg PO DAILY #30 cap 08/18/18 [Rx] Mirtazapine [Remeron] 45 mg PO HS #30 tablet 08/18/18 [Rx] Follow up Appointment(s)/Referral(s): [facility] [Outside] - 08/24/18 6:00 pm (Dr Castanon) Mike Borges MD [Primary Care Provider] - 1 Week Patient Instructions/Handouts: Mood Disorders (ED)
[2018-08-19] MEDS ORDERED: FLUoxetine HCL 20 MG CAP PO SCH (09:00)
== END 2018-08-18 11:27 | disposition home or self-care (01) | DRG 885 ==
LOC: EC 19:10 → 3MHU 22:22
PROVIDERS: ADMIT Psychiatry & Neurology Psychiatry; ATTEND Psychiatry & Neurology Psychiatry
DX: F33.2 Major depressive disorder, recurrent severe without psychotic features (principal); K86.1 Other chronic pancreatitis; R45.851 Suicidal ideations; E11.42 Type 2 diabetes mellitus with diabetic polyneuropathy; E11.43 Type 2 diabetes mellitus with diabetic autonomic (poly)neuropathy; E78.1 Pure hyperglyceridemia; E78.5 Hyperlipidemia, unspecified; F41.0 Panic disorder [episodic paroxysmal anxiety]; F43.12 Post-traumatic stress disorder, chronic; G89.4 Chronic pain syndrome; I11.9 Hypertensive heart disease without heart failure; I25.10 Atherosclerotic heart disease of native coronary artery without angina pectoris; K21.9 Gastro-esophageal reflux disease without esophagitis; K31.84 Gastroparesis; Z79.4 Long term (current) use of insulin; Z79.899 Other long term (current) drug therapy; Z83.3 Family history of diabetes mellitus; Z88.6 Allergy status to analgesic agent; Z90.49 Acquired absence of other specified parts of digestive tract; F40.240 Claustrophobia
CPT/HCPCS: 80053; 80061; 80306; 81001; 82075; 83036; 84443; 85025; 96360; 99285

== ENCOUNTER 2018-12-24 10:22 | Emergency (ER) | payer MEDICARE ==
[2018-12-24] MEDS ORDERED: ONDANSETRON 4 MG/2 ML VIAL IVP STA (10:50)
[2018-12-24] MEDS ORDERED: SODIUM CHLORIDE 0.9% 1,000 ML IV STA ×2 (10:50→13:46)
[2018-12-24] MEDS ORDERED: MORPHINE SULFATE 4 MG/ML SYRINGE IV STA (10:50)
[2018-12-24 10:53] LABS: Glucose,Whole Blood 399 mg/dL (75-99)
[2018-12-24 11:54] LABS: Basophils % (A) 1 %; Eosinophils # (A) 0.1 k/uL (0-0.7); Eosinophils % (A) 2 %; HCT 38.6 % (34.0-46.0); HGB 13.5 gm/dL (11.4-16.0); Lymphocytes # (A) 1.5 k/uL (1.0-4.8); Lymphocytes % (A) 33 %; MCH 31.3 pg (25.0-35.0); MCHC 34.9 g/dL (31.0-37.0); MCV 89.5 fL (80.0-100.0); Mean Platelet Volume 6.5; Monocytes # (A) 0.2 k/uL (0-1.0); Monocytes % (A) 4 %; Neutrophils # (A) 2.6 k/uL (1.3-7.7); Neutrophils % (A) 59 %; Platelet Count 129 k/uL (150-450); RBC 4.31 m/uL (3.80-5.40); RDW 14.9 % (11.5-15.5); WBC 4.4 k/uL (3.8-10.6)
--- NOTE | 2018-12-24 11:58 | ED ---
Abdominal Pain HPI - General Chief Complaint: Abdominal Pain Stated Complaint: poss cholitis, poss cdiff Time Seen by Provider: 12/24/18 10:30 Source: patient Mode of arrival: ambulatory Limitations: no limitations - History of Present Illness Initial Comments: Patient is a 53-year-old female presenting to emergency Department with complaints of abdominal pain and diarrhea 3 days. Patient is well-known to the ER. Patient states she has a history of C. diff. Patient describes the abdominal pain has generalized, sharp, and consistent. Patient states she's been having 5-6 bowel movements a day that is watery in nature. Patient states he did try Imodium without improvement. Patient also admits to mild nausea. Patient denies any recent antibiotic use. Patient is a diabetic but is not well controlled. Admits to being thirsty the last few days. She denies fever, chills, vomiting, chest pain, shortness of breath. No other complaints at this time. Upon arrival to ER, vital signs stable. - Related Data Home Medications Medication Instructions Recorded Confirmed Lisinopril [Zestril] 20 mg PO DAILY 09/09/13 12/24/18 Multivitamins, Thera [Multivitamin 1 tab PO DAILY 09/17/14 12/24/18 (formulary)] Atenolol [Tenormin] 100 mg PO DAILY 11/19/14 12/24/18 Calcium Carb-Vit D 500Mg-200Un 1 tab PO BID 11/19/14 12/24/18 [Oscal 500+D] Rosuvastatin Calcium [Crestor] 40 mg PO HS 11/19/14 12/24/18 Insulin Aspart [NovoLOG Flexpen] 26 unit SQ AC-BRKFST 10/14/15 12/24/18 Insulin Aspart [NovoLOG Flexpen] 26 unit SQ AC-LUNCH 10/14/15 12/24/18 Insulin Aspart [NovoLOG Flexpen] 36 units SQ AC-SUPPER 10/14/15 12/24/18 Niacin 1,000 mg PO HS 02/04/16 12/24/18 Insulin Detemir (Levemir) [Levemir] 66 unit SQ HS 07/21/16 12/24/18 Gemfibrozil [Lopid] 600 mg PO AC-BID 07/02/17 12/24/18 Previous Rx's Medication Instructions Recorded clonazePAM [KlonoPIN] 1 mg PO DAILY tab 10/14/17 clonazePAM [KlonoPIN] 2 mg PO HS tab 10/14/17 Gabapentin [Neurontin] 200 mg PO BID cap 12/09/17 FLUoxetine HCL [PROzac] 40 mg PO DAILY #30 cap 08/18/18 Mirtazapine [Remeron] 45 mg PO HS #30 tablet 08/18/18 Allergies Allergy/AdvReac Type Severity Reaction Status Date / Time NSAIDS (Non-Steroidal Allergy Rash/Hives Verified 12/24/18 11:11 Anti-Inflamma Review of Systems ROS Statement: Those systems with pertinent positive or pertinent negative responses have been documented in the HPI. ROS Other: All systems not noted in ROS Statement are negative. Past Medical History Past Medical History: Coronary Artery Disease (CAD), Diabetes Mellitus, GERD/Reflux, Hyperlipidemia, Hypertension, Syncope Additional Past Medical History / Comment(s): IDDM type II, recurrent DKA, episodes of hyperosmolar nonketonic hyperglycemia, hypertensive heart disease, chronic pain syndrome, hypertriglyceridemia, chronic pancreatitis, chronic abdominal pain, gastroparesis, severe GERD, diabetic polyneuropathy mostly in hands and alittle in feet bilaterally, infectious colitis. History of Any Multi-Drug Resistant Organisms: C-DIFF Date of last positivie culture/infection: pt. unsure MDRO Source:: stool Past Surgical History: Cholecystectomy Additional Past Surgical History / Comment(s): Biliary stent through an ERCP that was performed at [facility] and stent removed 2007, lap jenn, colonoscopy, ERCP. Past Anesthesia/Blood Transfusion Reactions: No Reported Reaction Additional Past Anesthesia/Blood Transfusion Reaction / Comment(s): Pt has never received blood."CLAUSTERPHOBIA" Past Psychological History: Anxiety, Depression, Panic Disorder, PTSD Smoking Status: Never smoker Past Alcohol Use History: Rare Past Drug Use History: None Reported - Past Family History Sister(s) Additional Family Medical History / Comment(s): Patient has 2 sisters with no major medical problems. Daughter(s) Additional Family Medical History / Comment(s): Patient has 2 daughters and one had mitral valve replacement. Son(s) Additional Family Medical History / Comment(s): She has one son with no major medical problems. Brother(s) Additional Family Medical History / Comment(s): Does not have any brothers. Father Family Medical History: No Reported History Additional Family Medical History / Comment(s): Father is 81 years of age with severe anxiety and was hospitalized for this at times. Mother Family Medical History: Cancer Additional Family Medical History / Comment(s): Mother of metastatic breast CA at the age of 42yrs. pt. states her grandmother had diabetes as well General Exam - General Exam Comments Initial Comments: GENERAL: Well-appearing, well-nourished and in no acute distress. HEAD: Atraumatic, normocephalic. EYES: Pupils equal round and reactive to light, extraocular movements intact, sclera anicteric, conjunctiva are normal. ENT: TMs normal, nares patent, oropharynx clear without exudates. Moist mucous membranes. NECK: Normal range of motion, supple without lymphadenopathy or JVD. LUNGS: Breath sounds clear to auscultation bilaterally and equal. No wheezes rales or rhonchi. HEART: Regular rate and rhythm without murmurs, rubs or gallops. ABDOMEN: Generalized abdominal pain. Soft, normoactive bowel sounds. No guarding. No masses appreciated. : Deferred EXTREMITIES: Normal range of motion, no pitting or edema. No clubbing or cyanosis. NEUROLOGICAL: Cranial nerves II through XII grossly intact. Normal speech, normal gait. PSYCH: Normal mood, normal affect. Avoids eye contact. SKIN: Warm, Dry, normal turgor, no rashes or lesions noted. Limitations: no limitations Course Vital Signs 12/24/18 12/24/18 12/24/18 10:26 14:25 14:30 Temperature 98.9 F 98.5 F Pulse Rate 99 89 90 Respiratory 16 15 16 Rate Blood Pressure 146/83 134/71 134/71 O2 Sat by Pulse 98 94 L 95 Oximetry 12/24/18 12/24/18 12/24/18 14:40 15:00 15:30 Temperature Pulse Rate 91 91 90 Respiratory 15 16 15 Rate Blood Pressure 115/68 115/68 120/67 O2 Sat by Pulse 95 94 L 94 L Oximetry 12/24/18 16:56 Temperature 97.6 F Pulse Rate 90 Respiratory 15 Rate Blood Pressure 115/67 O2 Sat by Pulse 98 Oximetry Medical Decision Making - Medical Decision Making Patient is a 53-year-old female presenting with generalized abdominal pain and diarrhea 3 days. Patient is well-known to this ER for similar complaints. She has history of C. diff. Patient has been having 5-6 bowel movements a day for the last 3 days. Patient does have diabetes and admits to being noncompliant. Patient didn't take any insulin today. On exam patient has generalized abdominal tenderness. The rest of exam is within normal limits. CBC is within normal limits. CMP reveals glucose of 403. Lactic acid was 3.2. Amylase and lipase are normal. UA shows 4+ glucose. 36 WBC. Acetone is negative. C. diff is negative. Patient was given 2 L of fluids as well as 6 units of insulin. Patient was also given Zofran and morphine. Patient reports improvement in symptoms. CT of the abdomen shows signs of very early acute colitis. No CT evidence of advanced colitis, free air, bowel obstruction. It was discussed with patient this is most likely viral in nature. There is no signs of active infection. Patient is stable for discharge at this time. Patient will use Imodium for symptom relief. Patient is agreement with this plan. Case discussed with Dr. Meraz. Return parameters were discussed with the patient she verbalized understanding. - Lab Data Result diagrams: 12/24/18 11:44 12/24/18 11:44 Lab Results 12/24/18 12/24/18 12/24/18 Range/Units 10:50 11:44 11:44 WBC 4.4 (3.8-10.6) k/uL RBC 4.31 (3.80-5.40) m/uL Hgb 13.5 (11.4-16.0) gm/dL Hct 38.6 (34.0-46.0) % MCV 89.5 (80.0-100.0) fL MCH 31.3 (25.0-35.0) pg MCHC 34.9 (31.0-37.0) g/dL RDW 14.9 (11.5-15.5) % Plt Count 129 L (150-450) k/uL Neutrophils % 59 % Lymphocytes % 33 % Monocytes % 4 % Eosinophils % 2 % Basophils % 1 % Neutrophils # 2.6 (1.3-7.7) k/uL Lymphocytes # 1.5 (1.0-4.8) k/uL Monocytes # 0.2 (0-1.0) k/uL Eosinophils # 0.1 (0-0.7) k/uL Basophils # 0.0 (0-0.2) k/uL Sodium 138 (137-145) mmol/L Potassium 3.5 (3.5-5.1) mmol/L Chloride 106 (98-107) mmol/L Carbon Dioxide 18 L (22-30) mmol/L Anion Gap 14 mmol/L BUN 12 (7-17) mg/dL Creatinine 0.46 L (0.52-1.04) mg/dL Est GFR (CKD-EPI)AfAm >90 (>60 ml/min/1.73 sqM) Est GFR (CKD-EPI)NonAf >90 (>60 ml/min/1.73 sqM) Glucose 403 H (74-99) mg/dL POC Glucose (mg/dL) 399 H (75-99) mg/dL POC Glu Escrow Assistant ID Francy Melendez Lactic Ac Sepsis Rflx Plasma Lactic Acid Dawit (0.7-2.0) mmol/L Calcium 9.0 (8.4-10.2) mg/dL Total Bilirubin 0.6 (0.2-1.3) mg/dL AST 25 (14-36) U/L ALT 25 (9-52) U/L Alkaline Phosphatase 108 (38-126) U/L Total Protein 6.5 (6.3-8.2) g/dL Albumin 3.9 (3.5-5.0) g/dL Amylase 70 (30-110) U/L Lipase (23-300) U/L Urine Color Urine Appearance (Clear) Urine pH (5.0-8.0) Ur Specific Elmo (1.001-1.035) Urine Protein (Negative) Urine Glucose (UA) (Negative) Urine Ketones (Negative) Urine Blood (Negative) Urine Nitrite (Negative) Urine Bilirubin (Negative) Urine Urobilinogen (<2.0) mg/dL Ur Leukocyte Esterase (Negative) Urine WBC (0-5) /hpf Ur Squamous Epith Cells (0-4) /hpf Urine Bacteria (None) /hpf Urine Mucus (None) /hpf Acetone, Qual (Negative) C. difficile (EIA) Intrp (Negative) 12/24/18 12/24/18 12/24/18 Range/Units 11:44 11:44 11:52 WBC (3.8-10.6) k/uL RBC (3.80-5.40) m/uL Hgb (11.4-16.0) gm/dL Hct (34.0-46.0) % MCV (80.0-100.0) fL MCH (25.0-35.0) pg MCHC (31.0-37.0) g/dL RDW (11.5-15.5) % Plt Count (150-450) k/uL Neutrophils % % Lymphocytes % % Monocytes % % Eosinophils % % Basophils % % Neutrophils # (1.3-7.7) k/uL Lymphocytes # (1.0-4.8) k/uL Monocytes # (0-1.0) k/uL Eosinophils # (0-0.7) k/uL Basophils # (0-0.2) k/uL Sodium (137-145) mmol/L Potassium (3.5-5.1) mmol/L Chloride (98-107) mmol/L Carbon Dioxide (22-30) mmol/L Anion Gap mmol/L BUN (7-17) mg/dL Creatinine (0.52-1.04) mg/dL Est GFR (CKD-EPI)AfAm (>60 ml/min/1.73 sqM) Est GFR (CKD-EPI)NonAf (>60 ml/min/1.73 sqM) Glucose (74-99) mg/dL POC Glucose (mg/dL) (75-99) mg/dL POC Glu Escrow Assistant ID Lactic Ac Sepsis Rflx Plasma Lactic Acid Dawit 3.2 H* (0.7-2.0) mmol/L Calcium (8.4-10.2) mg/dL Total Bilirubin (0.2-1.3) mg/dL AST (14-36) U/L ALT (9-52) U/L Alkaline Phosphatase (38-126) U/L Total Protein (6.3-8.2) g/dL Albumin (3.5-5.0) g/dL Amylase (30-110) U/L Lipase 39 (23-300) U/L Urine Color Urine Appearance (Clear) Urine pH (5.0-8.0) Ur Specific Elmo (1.001-1.035) Urine Protein (Negative) Urine Glucose (UA) (Negative) Urine Ketones (Negative) Urine Blood (Negative) Urine Nitrite (Negative) Urine Bilirubin (Negative) Urine Urobilinogen (<2.0) mg/dL Ur Leukocyte Esterase (Negative) Urine WBC (0-5) /hpf Ur Squamous Epith Cells (0-4) /hpf Urine Bacteria (None) /hpf Urine Mucus (None) /hpf Acetone, Qual Negative (Negative) C. difficile (EIA) Intrp (Negative) 12/24/18 12/24/18 12/24/18 Range/Units 12:04 12:10 13:47 WBC (3.8-10.6) k/uL RBC (3.80-5.40) m/uL Hgb (11.4-16.0) gm/dL Hct (34.0-46.0) % MCV (80.0-100.0) fL MCH (25.0-35.0) pg MCHC (31.0-37.0) g/dL RDW (11.5-15.5) % Plt Count (150-450) k/uL Neutrophils % % Lymphocytes % % Monocytes % % Eosinophils % % Basophils % % Neutrophils # (1.3-7.7) k/uL Lymphocytes # (1.0-4.8) k/uL Monocytes # (0-1.0) k/uL Eosinophils # (0-0.7) k/uL Basophils # (0-0.2) k/uL Sodium (137-145) mmol/L Potassium (3.5-5.1) mmol/L Chloride (98-107) mmol/L Carbon Dioxide (22-30) mmol/L Anion Gap mmol/L BUN (7-17) mg/dL Creatinine (0.52-1.04) mg/dL Est GFR (CKD-EPI)AfAm (>60 ml/min/1.73 sqM) Est GFR (CKD-EPI)NonAf (>60 ml/min/1.73 sqM) Glucose (74-99) mg/dL POC Glucose (mg/dL) (75-99) mg/dL POC Glu Escrow Assistant ID Lactic Ac Sepsis Rflx Y Plasma Lactic Acid Dawit (0.7-2.0) mmol/L Calcium (8.4-10.2) mg/dL Total Bilirubin (0.2-1.3) mg/dL AST (14-36) U/L ALT (9-52) U/L Alkaline Phosphatase (38-126) U/L Total Protein (6.3-8.2) g/dL Albumin (3.5-5.0) g/dL Amylase (30-110) U/L Lipase (23-300) U/L Urine Color Yellow Urine Appearance Clear (Clear) Urine pH 5.5 (5.0-8.0) Ur Specific Elmo 1.037 H (1.001-1.035) Urine Protein Negative (Negative) Urine Glucose (UA) 4+ H (Negative) Urine Ketones Trace H (Negative) Urine Blood Negative (Negative) Urine Nitrite Negative (Negative) Urine Bilirubin Negative (Negative) Urine Urobilinogen <2.0 (<2.0) mg/dL Ur Leukocyte Esterase Large H (Negative) Urine WBC 36 H (0-5) /hpf Ur Squamous Epith Cells 3 (0-4) /hpf Urine Bacteria Rare H (None) /hpf Urine Mucus Rare H (None) /hpf Acetone, Qual (Negative) C. difficile (EIA) Intrp Negative (Negative) 12/24/18 Range/Units 16:26 WBC (3.8-10.6) k/uL RBC (3.80-5.40) m/uL Hgb (11.4-16.0) gm/dL Hct (34.0-46.0) % MCV (80.0-100.0) fL MCH (25.0-35.0) pg MCHC (31.0-37.0) g/dL RDW (11.5-15.5) % Plt Count (150-450) k/uL Neutrophils % % Lymphocytes % % Monocytes % % Eosinophils % % Basophils % % Neutrophils # (1.3-7.7) k/uL Lymphocytes # (1.0-4.8) k/uL Monocytes # (0-1.0) k/uL Eosinophils # (0-0.7) k/uL Basophils # (0-0.2) k/uL Sodium (137-145) mmol/L Potassium (3.5-5.1) mmol/L Chloride (98-107) mmol/L Carbon Dioxide (22-30) mmol/L Anion Gap mmol/L BUN (7-17) mg/dL Creatinine (0.52-1.04) mg/dL Est GFR (CKD-EPI)AfAm (>60 ml/min/1.73 sqM) Est GFR (CKD-EPI)NonAf (>60 ml/min/1.73 sqM) Glucose (74-99) mg/dL POC Glucose (mg/dL) (75-99) mg/dL POC Glu Escrow Assistant ID Lactic Ac Sepsis Rflx Plasma Lactic Acid Dawit 2.9 H* (0.7-2.0) mmol/L Calcium (8.4-10.2) mg/dL Total Bilirubin (0.2-1.3) mg/dL AST (14-36) U/L ALT (9-52) U/L Alkaline Phosphatase (38-126) U/L Total Protein (6.3-8.2) g/dL Albumin (3.5-5.0) g/dL Amylase (30-110) U/L Lipase (23-300) U/L Urine Color Urine Appearance (Clear) Urine pH (5.0-8.0) Ur Specific Elmo (1.001-1.035) Urine Protein (Negative) Urine Glucose (UA) (Negative) Urine Ketones (Negative) Urine Blood (Negative) Urine Nitrite (Negative) Urine Bilirubin (Negative) Urine Urobilinogen (<2.0) mg/dL Ur Leukocyte Esterase (Negative) Urine WBC (0-5) /hpf Ur Squamous Epith Cells (0-4) /hpf Urine Bacteria (None) /hpf Urine Mucus (None) /hpf Acetone, Qual (Negative) C. difficile (EIA) Intrp (Negative) Disposition Clinical Impression: Colitis, Diarrhea, Hyperglycemia, Abdominal pain Disposition: HOME SELF-CARE Condition: Stable Instructions (If sedation given, give patient instructions): Abdominal Pain (ED), Colitis (ED) Additional Instructions: Please return to the Emergency Department if symptoms worsen or any other concerns. Continue to increase her fluid intake, use Imodium for diarrhea. Follow-up with PCP if symptoms persist for the next few days. Is patient prescribed a controlled substance at d/c from ED?: No Referrals: Mike Borges MD [Primary Care Provider] - 1-2 days
[2018-12-24 12:01] LABS: ALT 25 U/L (9-52); AST 25 U/L (14-36); African American GFR (CKD) >90 (>60 ml/min/1.73 sqM); Albumin 3.9 g/dL (3.5-5.0); Alkaline Phosphatase 108 U/L (38-126); Amylase 70 U/L (30-110); Anion Gap 14 mmol/L; Blood Urea Nitrogen 12 mg/dL (7-17); Carbon Dioxide 18 mmol/L (22-30); Chloride 106 mmol/L (98-107); Glucose 403 mg/dL (74-99); Potassium 3.5 mmol/L (3.5-5.1); Sodium 138 mmol/L (137-145); Total Bilirubin 0.6 mg/dL (0.2-1.3); Total Protein 6.5 g/dL (6.3-8.2)
[2018-12-24 12:14] LABS: Appearance,Urine Clear (Clear); Bacteria,Urine Rare /hpf; Bilirubin,Urine Negative (Negative); Blood,Urine Negative (Negative); Color,Urine Yellow; Glucose,Urine (UA) 4+ (Negative); Ketones,Urine Trace (Negative); Leukocyte Esterase,Urine Large (Negative); Mucus,Urine Rare /hpf; Nitrite,Urine Negative (Negative); PH, Urine 5.5 (5.0-8.0); Protein,Urine Negative (Negative); Specific Gravity,Urine 1.037 (1.001-1.035); Squamous Epithelial Cell,Urine 3 /hpf (0-4); Urobilinogen,Urine <2.0 mg/dL (<2.0)
--- NOTE | 2018-12-24 13:26 | CT ---
EXAMINATION TYPE: CT abdomen pelvis w con DATE OF EXAM: 12/24/2018 HISTORY: Abdominal pain, possible colitis, possible C-diff CT DLP: 773.7mGycm Automated Exposure Control for Dose Reduction was Utilized. CONTRAST: CT scan of the abdomen and pelvis is performed with IV Contrast, patient injected with 100 ml mL of I sovue 300. COMPARISON: 10/15/2016 FINDINGS: LUNG BASES: Minimal bibasilar dependent subsegmental atelectasis. LIVER/GB: Very mild periportal edema is noted. Gallbladder is surgically absent. PANCREAS: There is a fluid attenuated structure near the gastrohepatic ligament just above the pancre as measuring 2.2 x 2.2 cm unchanged from the prior of 10/15/2016. In this patient with a known history of chronic pancreatitis pseudocyst could be considered. No active peripancreatic inflammatory fat st randing to suggest pancreatitis at this time SPLEEN: Mild enlarged measuring 14.0 cm in longitudinal dimension. ADRENALS: No significant abnormality is seen. KIDNEYS: Only delayed imaging of the kidneys was obtained, somewhat limiting evaluation. No gross lv dence of greater than 5 mm suspicious renal mass nor hydronephrosis. BOWEL: Appendix is retrocecal and within normal limits of size measuring up to 6 mm. Punctate focus o f high density however is seen on image 16 that could represent a small appendicolith. No focal right lower quadrant fat stranding changes seen. Moderate degree colonic fecal stasis throughout. No focal bowel wall thickening. Very small amount of fluid is seen adjacent to the sigmoid colon and image 77 with prominent vasa recta. Prominent basilar artery are also seen in entirety: On image 41 of the co zabrina series. UTERUS/ADNEXA: No gross abnormality seen. LYMPH NODES: No greater than 1cm abdominal or pelvic lymph nodes are appreciated. OSSEOUS STRUCTURES: No suspicious osseous abnormality. IMPRESSION: 1. Prominent vasa recta surrounding the entirety of the colon and a small amount of fluid is seen adj acent to the sigmoid colon. Very early acute colitis could be considered in this patient with possibl e C. difficile. No CT evidence of advanced colitis, free air, nor bowel obstruction are seen. No star colonic abscess. 2. Fluid attenuated structure in the gastrohepatic ligament region adjacent to the pancreas is stable in comparison to the prior of 10/15/2016 and could represent a chronic pseudocyst in this patient wit h a stated history of chronic pancreatitis. No CT evidence of acute pancreatitis. 3. Very minimal periportal fluid typically on the basis of hypervolemic status.
[2018-12-24] MEDS ORDERED: INSULIN REGULAR 100 UNIT/ML VIAL IV ONE (13:42)
[2018-12-24 14:26] VITALS: RESP 15
[2018-12-24 15:56] VITALS: PULSE 90
[2018-12-24 16:57] VITALS: BP 115/67; TEMP 97.6
== END 2018-12-24 16:56 | disposition home or self-care (01) ==
LOC: EC 10:22
DX: K52.9 Noninfective gastroenteritis and colitis, unspecified (principal); E11.65 Type 2 diabetes mellitus with hyperglycemia; E11.42 Type 2 diabetes mellitus with diabetic polyneuropathy; E11.10 Type 2 diabetes mellitus with ketoacidosis without coma; I25.10 Atherosclerotic heart disease of native coronary artery without angina pectoris; E78.5 Hyperlipidemia, unspecified; I10 Essential (primary) hypertension; K21.9 Gastro-esophageal reflux disease without esophagitis; Z79.899 Other long term (current) drug therapy; Z79.4 Long term (current) use of insulin; Z88.6 Allergy status to analgesic agent; Z86.19 Personal history of other infectious and parasitic diseases; Z98.890 Other specified postprocedural states; Z90.49 Acquired absence of other specified parts of digestive tract
CPT/HCPCS: 36415; 80053; 82150; 82009; 83605; 83690; 85025; 81001; 87040; 87324; 87086; 87045; 83630; 87046; 74177; 99284; 96374; 96375; 96361 ×3; J2270; J2405; Q9967; 87077; 87186

== ENCOUNTER 2019-04-13 10:14 | Emergency (ER) | payer MEDICARE ==
[2019-04-13 10:41] VITALS: RESP 18; TEMP 99
--- NOTE | 2019-04-13 10:53 | ED ---
Skin/Abscess/FB HPI - General Chief complaint: Skin/Abscess/Foreign Body Stated complaint: finger infection Time Seen by Provider: 04/13/19 10:43 Source: patient Mode of arrival: ambulatory Limitations: no limitations - History of Present Illness Initial comments: 54-year-old female insulin-dependent diabetic presents emergency department for chief complaint of right middle finger infection. Patient states she placed in finger near the nail bed of her right middle finger. She states is then beginning for the past 2 days states now is very painful and red. Patient states she is still able to range at the digit she states there is some slight swelling. Patient denies any fever or flulike symptoms. Patient denies any other affected areas. Remaining review of systems negative upon arrival patient appears well signs of acute distress. Patient states she has taken occasional tramadol for the pain - Related Data Home Medications Medication Instructions Recorded Confirmed Lisinopril [Zestril] 20 mg PO DAILY 09/09/13 04/13/19 Multivitamins, Thera [Multivitamin 1 tab PO DAILY 09/17/14 04/13/19 (formulary)] Atenolol [Tenormin] 100 mg PO DAILY 11/19/14 04/13/19 Calcium Carb-Vit D 500Mg-200Un 1 tab PO BID 11/19/14 04/13/19 [Oscal 500+D] Rosuvastatin Calcium [Crestor] 40 mg PO HS 11/19/14 04/13/19 Insulin Aspart [NovoLOG Flexpen] 26 unit SQ AC-BRKFST 10/14/15 04/13/19 Insulin Aspart [NovoLOG Flexpen] 26 unit SQ AC-LUNCH 10/14/15 04/13/19 Insulin Aspart [NovoLOG Flexpen] 36 units SQ AC-SUPPER 10/14/15 04/13/19 Niacin 1,000 mg PO HS 02/04/16 04/13/19 Insulin Detemir (Levemir) [Levemir] 66 unit SQ HS 07/21/16 04/13/19 Gemfibrozil [Lopid] 600 mg PO AC-BID 07/02/17 04/13/19 Ondansetron Odt [Zofran Odt] 4 mg PO Q8HR PRN 04/13/19 04/13/19 Sertraline [Zoloft] 100 mg PO BID 04/13/19 04/13/19 Previous Rx's Medication Instructions Recorded clonazePAM [KlonoPIN] 1 mg PO DAILY tab 10/14/17 clonazePAM [KlonoPIN] 2 mg PO HS tab 10/14/17 Gabapentin [Neurontin] 200 mg PO BID cap 12/09/17 Mirtazapine [Remeron] 45 mg PO HS #30 tablet 08/18/18 Cephalexin [Keflex] 500 mg PO Q6HR 10 Days #40 cap 04/13/19 Sulfamethox-Tmp 800-160Mg [Bactrim 1 tab PO Q12HR 10 Days #20 tab 04/13/19 DS 800-160 mg] Allergies Allergy/AdvReac Type Severity Reaction Status Date / Time NSAIDS (Non-Steroidal Allergy Rash/Hives Verified 04/13/19 11:22 Anti-Inflamma Review of Systems ROS Statement: Those systems with pertinent positive or pertinent negative responses have been documented in the HPI. ROS Other: All systems not noted in ROS Statement are negative. Past Medical History Past Medical History: Coronary Artery Disease (CAD), Diabetes Mellitus, GERD/Reflux, Hyperlipidemia, Hypertension, Syncope Additional Past Medical History / Comment(s): IDDM type II, recurrent DKA, episodes of hyperosmolar nonketonic hyperglycemia, hypertensive heart disease, chronic pain syndrome, hypertriglyceridemia, chronic pancreatitis, chronic abdominal pain, gastroparesis, severe GERD, diabetic polyneuropathy mostly in hands and alittle in feet bilaterally, infectious colitis. History of Any Multi-Drug Resistant Organisms: None Reported Date of last positivie culture/infection: pt. unsure MDRO Source:: stool Past Surgical History: Cholecystectomy Additional Past Surgical History / Comment(s): Biliary stent through an ERCP that was performed at [facility] and stent removed 2007, lap jenn, colonoscopy, ERCP. Past Anesthesia/Blood Transfusion Reactions: No Reported Reaction Additional Past Anesthesia/Blood Transfusion Reaction / Comment(s): Pt has never received blood."CLAUSTERPHOBIA" Past Psychological History: Anxiety, Depression, Panic Disorder, PTSD Smoking Status: Never smoker Past Alcohol Use History: Rare Past Drug Use History: None Reported - Past Family History Sister(s) Additional Family Medical History / Comment(s): Patient has 2 sisters with no major medical problems. Daughter(s) Additional Family Medical History / Comment(s): Patient has 2 daughters and one had mitral valve replacement. Son(s) Additional Family Medical History / Comment(s): She has one son with no major medical problems. Brother(s) Additional Family Medical History / Comment(s): Does not have any brothers. Father Family Medical History: No Reported History Additional Family Medical History / Comment(s): Father is 81 years of age with severe anxiety and was hospitalized for this at times. Mother Family Medical History: Cancer Additional Family Medical History / Comment(s): Mother of metastatic breast CA at the age of 42yrs. pt. states her grandmother had diabetes as well General Exam - General Exam Comments Initial Comments: General: The patient is awake and alert, in no distress, and does not appear acutely ill. Eye: Pupils are equal, round and reactive to light, extra-ocular movements are intact. No nystagmus. There is normal conjunctiva bilaterally. No signs of icterus. Cardiovascular: There is a regular rate and rhythm. No murmur, rub or gallop is appreciated. Respiratory: Lungs are clear to auscultation, respirations are non-labored, breath sounds are equal. No wheezes, stridor, rales, or rhonchi. Musculoskeletal: Normal ROM, no tenderness. Strength 5/5. Sensation intact. Pulses equal bilaterally 2+. Neurological: A&O x 3. CN II-XII intact grossly, There are no obvious motor or sensory deficits. Coordination appears grossly intact. Speech is normal. Skin: Skin is warm and dry and no rashes. Large. He can noted at the base of the nail plate of the right middle digit. Area of purulence noted slight erythema surrounding the area of paronychia. Patient has no fusiform swelling no force flexed positioning of pain along the flexor tendon. Psychiatric: Cooperative, appropriate mood & affect, normal judgment. Limitations: no limitations Course Vital Signs 04/13/19 04/13/19 10:37 11:39 Temperature 99.0 F Pulse Rate 83 78 Respiratory 18 18 Rate Blood Pressure 127/83 121/70 O2 Sat by Pulse 97 100 Oximetry Medical Decision Making - Medical Decision Making 54-year-old female presenting today for chief complaint of possible finger infection. Physical examination findings consistent. He check. Patient is able to flex digit however complains of pain there is no direct tenderness over the flexor tendon with no fusiform swelling there is some noted spreading of erythema consistent probably a developing local cellulitis. No evidence of felon. Patient was evaluated from attending provider Dr. Arthur who recommended incision and drainage as well as discharged on Keflex and Bactrim with strict return parameters and primary care for follow-up within 3 days. She is agreeable to this care plan discharge this time with importance of follow-up and return parameters Disposition Clinical Impression: Paronychia Disposition: HOME SELF-CARE Condition: Good Instructions (If sedation given, give patient instructions): Paronychia (ED) Prescriptions: Sulfamethox-Tmp 800-160Mg [Bactrim DS 800-160 mg] 1 tab PO Q12HR 10 Days #20 tab Cephalexin [Keflex] 500 mg PO Q6HR 10 Days #40 cap Is patient prescribed a controlled substance at d/c from ED?: No Referrals: Mike Borges MD [Primary Care Provider] - 1-2 days Time of Disposition: 11:11
[2019-04-13] MEDS ORDERED: ACET/COD 300 MG/30 MG STARTER PACK 6 TAB BTL PO STA (11:20)
[2019-04-13] MEDS ORDERED: SULFAMETH-TMP DS STARTER PACK 2 TAB BTL PO STA (11:20)
[2019-04-13] MEDS ORDERED: CEPHALEXIN 500MG STARTER PACK 4 CAP BTL PO STA (11:20)
[2019-04-13 11:40] VITALS: BP 121/70; PULSE 78
== END 2019-04-13 11:42 | disposition home or self-care (01) ==
LOC: EC 10:14
DX: L03.011 Cellulitis of right finger (principal); I25.10 Atherosclerotic heart disease of native coronary artery without angina pectoris; K21.9 Gastro-esophageal reflux disease without esophagitis; E11.10 Type 2 diabetes mellitus with ketoacidosis without coma; E72.51 Non-ketotic hyperglycinemia; I11.9 Hypertensive heart disease without heart failure; E11.43 Type 2 diabetes mellitus with diabetic autonomic (poly)neuropathy; K31.84 Gastroparesis; E11.42 Type 2 diabetes mellitus with diabetic polyneuropathy; F32.9 Major depressive disorder, single episode, unspecified; F41.9 Anxiety disorder, unspecified; Z88.6 Allergy status to analgesic agent; Z79.4 Long term (current) use of insulin; Z79.899 Other long term (current) drug therapy
CPT/HCPCS: 87070; 87077; 87186; 87205; 99284

== ENCOUNTER 2019-04-14 16:56 | Emergency (ER) | payer MEDICARE ==
--- NOTE | 2019-04-14 17:27 | ED ---
General Adult HPI - General Chief complaint: Recheck/Abnormal Lab/Rx Stated complaint: finger infection-revisit Time Seen by Provider: 04/14/19 17:09 Source: patient, RN notes reviewed Mode of arrival: ambulatory Limitations: no limitations - History of Present Illness Initial comments: 54-year-old female with a past medical history of CAD, insulin-dependent diabetes mellitus, GERD, hyperlipidemia, hypertension presents to the emergency department for a chief complaint of finger infection. Patient states she has had an infection the left third digit for the past few days. States she was started on oral antibiotics yesterday. Patient states that today the pain worsened. She denies fevers or chills. States it is starting to make her stomach upset.Patient has no other complaints at this time including shortness of breath, chest pain, abdominal pain, nausea or vomiting, headache, or visual changes. - Related Data Home Medications Medication Instructions Recorded Confirmed Lisinopril [Zestril] 20 mg PO DAILY 09/09/13 04/13/19 Multivitamins, Thera [Multivitamin 1 tab PO DAILY 09/17/14 04/13/19 (formulary)] Atenolol [Tenormin] 100 mg PO DAILY 11/19/14 04/13/19 Calcium Carb-Vit D 500Mg-200Un 1 tab PO BID 11/19/14 04/13/19 [Oscal 500+D] Rosuvastatin Calcium [Crestor] 40 mg PO HS 11/19/14 04/13/19 Insulin Aspart [NovoLOG Flexpen] 26 unit SQ AC-BRKFST 10/14/15 04/13/19 Insulin Aspart [NovoLOG Flexpen] 26 unit SQ AC-LUNCH 10/14/15 04/13/19 Insulin Aspart [NovoLOG Flexpen] 36 units SQ AC-SUPPER 10/14/15 04/13/19 Niacin 1,000 mg PO HS 02/04/16 04/13/19 Insulin Detemir (Levemir) [Levemir] 66 unit SQ HS 07/21/16 04/13/19 Gemfibrozil [Lopid] 600 mg PO AC-BID 07/02/17 04/13/19 Ondansetron Odt [Zofran Odt] 4 mg PO Q8HR PRN 04/13/19 04/13/19 Sertraline [Zoloft] 100 mg PO BID 04/13/19 04/13/19 Previous Rx's Medication Instructions Recorded clonazePAM [KlonoPIN] 1 mg PO DAILY tab 10/14/17 clonazePAM [KlonoPIN] 2 mg PO HS tab 10/14/17 Gabapentin [Neurontin] 200 mg PO BID cap 12/09/17 Mirtazapine [Remeron] 45 mg PO HS #30 tablet 08/18/18 Cephalexin [Keflex] 500 mg PO Q6HR 10 Days #40 cap 04/13/19 Sulfamethox-Tmp 800-160Mg [Bactrim 1 tab PO Q12HR 10 Days #20 tab 04/13/19 DS 800-160 mg] Allergies Allergy/AdvReac Type Severity Reaction Status Date / Time NSAIDS (Non-Steroidal Allergy Rash/Hives Verified 04/14/19 17:03 Anti-Inflamma Review of Systems ROS Statement: Those systems with pertinent positive or pertinent negative responses have been documented in the HPI. ROS Other: All systems not noted in ROS Statement are negative. Past Medical History Past Medical History: Coronary Artery Disease (CAD), Diabetes Mellitus, GERD/Reflux, Hyperlipidemia, Hypertension, Syncope Additional Past Medical History / Comment(s): IDDM type II, recurrent DKA, episodes of hyperosmolar nonketonic hyperglycemia, hypertensive heart disease, chronic pain syndrome, hypertriglyceridemia, chronic pancreatitis, chronic abdominal pain, gastroparesis, severe GERD, diabetic polyneuropathy mostly in hands and alittle in feet bilaterally, infectious colitis. History of Any Multi-Drug Resistant Organisms: None Reported Date of last positivie culture/infection: pt. unsure MDRO Source:: stool Past Surgical History: Cholecystectomy Additional Past Surgical History / Comment(s): Biliary stent through an ERCP that was performed at [facility] and stent removed 2007, lap jenn, colonoscopy, ERCP. Past Anesthesia/Blood Transfusion Reactions: No Reported Reaction Additional Past Anesthesia/Blood Transfusion Reaction / Comment(s): Pt has never received blood."CLAUSTERPHOBIA" Past Psychological History: Anxiety, Depression, Panic Disorder, PTSD Smoking Status: Never smoker Past Alcohol Use History: Rare Past Drug Use History: None Reported - Past Family History Sister(s) Additional Family Medical History / Comment(s): Patient has 2 sisters with no major medical problems. Daughter(s) Additional Family Medical History / Comment(s): Patient has 2 daughters and one had mitral valve replacement. Son(s) Additional Family Medical History / Comment(s): She has one son with no major medical problems. Brother(s) Additional Family Medical History / Comment(s): Does not have any brothers. Father Family Medical History: No Reported History Additional Family Medical History / Comment(s): Father is 81 years of age with severe anxiety and was hospitalized for this at times. Mother Family Medical History: Cancer Additional Family Medical History / Comment(s): Mother of metastatic breast CA at the age of 42yrs. pt. states her grandmother had diabetes as well General Exam Limitations: no limitations General appearance: alert, in no apparent distress Head exam: Present: atraumatic, normocephalic, normal inspection Eye exam: Present: normal appearance, PERRL, EOMI. Absent: scleral icterus, conjunctival injection, periorbital swelling ENT exam: Present: normal exam, mucous membranes moist Neck exam: Present: normal inspection, full ROM. Absent: tenderness, meningismus, lymphadenopathy Respiratory exam: Present: normal lung sounds bilaterally. Absent: respiratory distress, wheezes, rales, rhonchi, stridor Cardiovascular Exam: Present: regular rate, normal rhythm, normal heart sounds. Absent: systolic murmur, diastolic murmur, rubs, gallop, clicks Extremities exam: Present: full ROM (full ROM of R 3rd digit), normal capillary refill (Refill less than 2 seconds the R second digit.), other (Patient does have mild paronychia noted of the R third digit however no spreading or streaking redness. No tenderness of the flexor tendon. No evidence for felon). Absent: tenderness, pedal edema, joint swelling, calf tenderness Course Vital Signs 04/14/19 04/14/19 04/14/19 17:03 19:05 19:42 Temperature 97.8 F 98.1 F Pulse Rate 82 76 81 Respiratory 16 16 17 Rate Blood Pressure 130/82 123/80 134/79 O2 Sat by Pulse 98 97 99 Oximetry Medical Decision Making - Medical Decision Making Patient has paronychia noted of the right third digit. This was incised and drained yesterday. Dr. Arthur visualize this and significant improvement is noted from yesterday. There is no spreading or streaking redness. There is no fusiform edema. No tenderness of the flexor tendon. CBC is unremarkable. CMP does show hyperglycemia. Potassium within normal limits at 4.9. Anion gap is 13, acetone is negative. Trace ketones in the urine. Patient was given fluids and insulin and this did improve to 279. At this time patient can be discharged home. She is to continue antibiotics given to her yesterday. We did speak with Dr. Andino and she will follow-up with him. Patient will return if she has any worsening symptoms. - Lab Data Result diagrams: 04/14/19 17:50 04/14/19 17:50 Lab Results 04/14/19 04/14/19 04/14/19 Range/Units 17:26 17:50 17:50 WBC 7.1 (3.8-10.6) k/uL RBC 4.49 (3.80-5.40) m/uL Hgb 14.1 (11.4-16.0) gm/dL Hct 39.4 (34.0-46.0) % MCV 87.8 (80.0-100.0) fL MCH 31.4 (25.0-35.0) pg MCHC 35.8 (31.0-37.0) g/dL RDW 13.2 (11.5-15.5) % Plt Count 205 (150-450) k/uL Neutrophils % 64 % Lymphocytes % 28 % Monocytes % 4 % Eosinophils % 2 % Basophils % 0 % Neutrophils # 4.6 (1.3-7.7) k/uL Lymphocytes # 2.0 (1.0-4.8) k/uL Monocytes # 0.3 (0-1.0) k/uL Eosinophils # 0.1 (0-0.7) k/uL Basophils # 0.0 (0-0.2) k/uL Sodium 138 (137-145) mmol/L Potassium 4.9 (3.5-5.1) mmol/L Chloride 105 (98-107) mmol/L Carbon Dioxide 20 L (22-30) mmol/L Anion Gap 13 mmol/L BUN 20 H (7-17) mg/dL Creatinine 0.66 (0.52-1.04) mg/dL Est GFR (CKD-EPI)AfAm >90 (>60 ml/min/1.73 sqM) Est GFR (CKD-EPI)NonAf >90 (>60 ml/min/1.73 sqM) Glucose 525 H* (74-99) mg/dL POC Glucose (mg/dL) 487 H (75-99) mg/dL POC Glu [employer] ID Maureen Bourne Calcium 9.8 (8.4-10.2) mg/dL Total Bilirubin 1.0 (0.2-1.3) mg/dL AST 40 H (14-36) U/L ALT 20 (4-34) U/L Alkaline Phosphatase 134 H (38-126) U/L Total Protein 7.6 (6.3-8.2) g/dL Albumin 4.5 (3.5-5.0) g/dL Amylase 57 (30-110) U/L Lipase 118 (23-300) U/L Urine Color Urine Appearance (Clear) Urine pH (5.0-8.0) Ur Specific [place] (1.001-1.035) Urine Protein (Negative) Urine Glucose (UA) (Negative) Urine Ketones (Negative) Urine Blood (Negative) Urine Nitrite (Negative) Urine Bilirubin (Negative) Urine Urobilinogen (<2.0) mg/dL Ur Leukocyte Esterase (Negative) Urine RBC (0-5) /hpf Urine WBC (0-5) /hpf Ur Squamous Epith Cells (0-4) /hpf Acetone, Qual Negative (Negative) 04/14/19 04/14/19 04/14/19 Range/Units 17:50 19:12 20:30 WBC (3.8-10.6) k/uL RBC (3.80-5.40) m/uL Hgb (11.4-16.0) gm/dL Hct (34.0-46.0) % MCV (80.0-100.0) fL MCH (25.0-35.0) pg MCHC (31.0-37.0) g/dL RDW (11.5-15.5) % Plt Count (150-450) k/uL Neutrophils % % Lymphocytes % % Monocytes % % Eosinophils % % Basophils % % Neutrophils # (1.3-7.7) k/uL Lymphocytes # (1.0-4.8) k/uL Monocytes # (0-1.0) k/uL Eosinophils # (0-0.7) k/uL Basophils # (0-0.2) k/uL Sodium (137-145) mmol/L Potassium (3.5-5.1) mmol/L Chloride (98-107) mmol/L Carbon Dioxide (22-30) mmol/L Anion Gap mmol/L BUN (7-17) mg/dL Creatinine (0.52-1.04) mg/dL Est GFR (CKD-EPI)AfAm (>60 ml/min/1.73 sqM) Est GFR (CKD-EPI)NonAf (>60 ml/min/1.73 sqM) Glucose (74-99) mg/dL POC Glucose (mg/dL) 468 H 279 H (75-99) mg/dL POC Glu [employer] ID Francy Melendez Calla Calcium (8.4-10.2) mg/dL Total Bilirubin (0.2-1.3) mg/dL AST (14-36) U/L ALT (4-34) U/L Alkaline Phosphatase (38-126) U/L Total Protein (6.3-8.2) g/dL Albumin (3.5-5.0) g/dL Amylase (30-110) U/L Lipase (23-300) U/L Urine Color Yellow Urine Appearance Clear (Clear) Urine pH 5.5 (5.0-8.0) Ur Specific [place] 1.034 (1.001-1.035) Urine Protein Negative (Negative) Urine Glucose (UA) 4+ H (Negative) Urine Ketones Trace H (Negative) Urine Blood Negative (Negative) Urine Nitrite Negative (Negative) Urine Bilirubin Negative (Negative) Urine Urobilinogen <2.0 (<2.0) mg/dL Ur Leukocyte Esterase Large H (Negative) Urine RBC 2 (0-5) /hpf Urine WBC 50 H (0-5) /hpf Ur Squamous Epith Cells 1 (0-4) /hpf Acetone, Qual (Negative) Disposition Clinical Impression: Paronychia of finger Disposition: HOME SELF-CARE Condition: Good Instructions (If sedation given, give patient instructions): Paronychia (ED) Additional Instructions: Continue antibiotics as directed. Follow-up with Dr. Andino in one to 2 days. Return to the emergency department if you develop any worsening symptoms or fevers. Is patient prescribed a controlled substance at d/c from ED?: No Referrals: Mike Borges MD [Primary Care Provider] - 1-2 days Stefan Andino DO [Medical Doctor] - 1-2 days Time of Disposition: 20:41
[2019-04-14 17:28] LABS: Glucose,Whole Blood 487 mg/dL (75-99)
[2019-04-14] MEDS ORDERED: SODIUM CHLORIDE 0.9% 2,000 ML IV STA (17:43)
[2019-04-14 18:19] LABS: Basophils % (A) 0 %; Eosinophils # (A) 0.1 k/uL (0-0.7); Eosinophils % (A) 2 %; HCT 39.4 % (34.0-46.0); HGB 14.1 gm/dL (11.4-16.0); Lymphocytes % (A) 28 %; MCH 31.4 pg (25.0-35.0); MCHC 35.8 g/dL (31.0-37.0); MCV 87.8 fL (80.0-100.0); Mean Platelet Volume 6.8; Monocytes # (A) 0.3 k/uL (0-1.0); Monocytes % (A) 4 %; Neutrophils # (A) 4.6 k/uL (1.3-7.7); Neutrophils % (A) 64 %; Platelet Count 205 k/uL (150-450); RBC 4.49 m/uL (3.80-5.40); RDW 13.2 % (11.5-15.5); WBC 7.1 k/uL (3.8-10.6)
[2019-04-14 18:22] LABS: Appearance,Urine Clear (Clear); Bilirubin,Urine Negative (Negative); Blood,Urine Negative (Negative); Color,Urine Yellow; Glucose,Urine (UA) 4+ (Negative); Ketones,Urine Trace (Negative); Leukocyte Esterase,Urine Large (Negative); Nitrite,Urine Negative (Negative); PH, Urine 5.5 (5.0-8.0); Protein,Urine Negative (Negative); RBC,Urine 2 /hpf (0-5); Specific Gravity,Urine 1.034 (1.001-1.035); Squamous Epithelial Cell,Urine 1 /hpf (0-4); Urobilinogen,Urine <2.0 mg/dL (<2.0); WBC,Urine 50 /hpf (0-5)
[2019-04-14 18:34] LABS: ALT 20 U/L (4-34); AST 40 U/L (14-36); African American GFR (CKD) >90 (>60 ml/min/1.73 sqM); Albumin 4.5 g/dL (3.5-5.0); Alkaline Phosphatase 134 U/L (38-126); Amylase 57 U/L (30-110); Anion Gap 13 mmol/L; Blood Urea Nitrogen 20 mg/dL (7-17); Calcium 9.8 mg/dL (8.4-10.2); Carbon Dioxide 20 mmol/L (22-30); Chloride 105 mmol/L (98-107); Non-African American GFR(CKD) >90 (>60 ml/min/1.73 sqM); Sodium 138 mmol/L (137-145); Total Protein 7.6 g/dL (6.3-8.2)
[2019-04-14 18:43] LABS: Glucose 525 mg/dL (74-99); Potassium 4.9 mmol/L (3.5-5.1)
[2019-04-14] MEDS ORDERED: cefTRIAXone IN SWFI 1,000 MG/10 ML SYRINGE IVP STA (19:07)
[2019-04-14 19:16] LABS: Glucose,Whole Blood 468 mg/dL (75-99)
[2019-04-14] MEDS ORDERED: INSULIN REGULAR 100 UNIT/ML VIAL IV ONE (19:27)
[2019-04-14] MEDS ORDERED: INSULIN ASPART (NovoLOG) 100 UNIT/ML VIAL SQ STA (19:28)
[2019-04-14 19:47] VITALS: TEMP 98.1
[2019-04-14] MEDS ORDERED: traMADol 50 MG TAB PO STA (19:57)
[2019-04-14 20:37] LABS: Glucose,Whole Blood 279 mg/dL (75-99)
[2019-04-14 20:46] VITALS: BP 112/77; PULSE 80; RESP 16
== END 2019-04-14 20:56 | disposition home or self-care (01) ==
LOC: EC 16:56
DX: L03.011 Cellulitis of right finger (principal); E11.65 Type 2 diabetes mellitus with hyperglycemia; I25.10 Atherosclerotic heart disease of native coronary artery without angina pectoris; E78.5 Hyperlipidemia, unspecified; I11.9 Hypertensive heart disease without heart failure; E11.40 Type 2 diabetes mellitus with diabetic neuropathy, unspecified; F41.9 Anxiety disorder, unspecified; F32.9 Major depressive disorder, single episode, unspecified; F43.10 Post-traumatic stress disorder, unspecified; Z79.4 Long term (current) use of insulin; Z79.899 Other long term (current) drug therapy; Z88.6 Allergy status to analgesic agent
CPT/HCPCS: 36415; 80053; 82150; 82009; 83690; 85025; 81001; 87086; 99283; 96374; 96361 ×3; J0696

== ENCOUNTER 2021-07-05 11:20 | Inpatient (IN) | payer MEDICAID, MEDICARE, OTHER ==
--- NOTE | 2021-07-05 12:43 | ED ---
Psych HPI - General Chief Complaint: Psychiatric Symptoms Stated Complaint: mental health Time Seen by Provider: 07/05/21 11:39 Source: patient, family, RN notes reviewed Mode of arrival: ambulatory - History of Present Illness Initial Comments: This is a 56-year-old female who presents to the emergency department with her daughter for psychiatric evaluation. Patient's daughter states that her living conditions are very poor and the utilities have been shut off, because she lost her disability check. She lost her disability check because she lost a letter in the mail that required she send an updated medical evaluation in order to continue receiving income. She has been without her disability checks for 2-3 months, but does have a disability sql database administrator working on the process. The patient's daughter states that she is also hoarding, her three daughters are going to clean out her house. Patient is also a diabetic and cannot afford her medication, states that she has not been treated in 3 weeks. She is supposed to be taking Levemir and NovoLog. Patient denies any suicidal or homicidal ideations, but states that she is very anxious and depressed, and wants to get her life back on track. Current psychiatric medications include 1mg of Klonopin in the morning and 2mg at night. Also takes 200mg of Zoloft. Medications are prescribed by her PCP. She had been seeing a therapist up until COVID began, at which time she stopped going. Her daughter is trying to get her set up with therapy appointments via telehealth. Complaint: feels depressed Associated Psychiatric Symptoms: depression History of same: Yes Quality: constant - Related Data Home Medications Medication Instructions Recorded Confirmed lisinopriL [Zestril] 20 mg PO DAILY 09/09/13 07/05/21 Multivitamins, Thera [Multivitamin 1 tab PO DAILY 09/17/14 07/05/21 (formulary)] Atenolol [Tenormin] 100 mg PO DAILY 11/19/14 07/05/21 Calcium Carb-Vit D 500Mg-5Mcg 1 tab PO BID 11/19/14 07/05/21 [Oscal 500+D 5 Mcg (200 Iu)] Rosuvastatin Calcium [Crestor] 40 mg PO HS 11/19/14 07/05/21 Insulin Aspart [NovoLOG Flexpen] 14 unit SQ AC-TID 10/14/15 07/05/21 Niacin 1,000 mg PO HS 02/04/16 07/05/21 Insulin Detemir (Levemir) [Levemir] 44 unit SQ HS 07/21/16 07/05/21 gemfibroziL [Lopid] 600 mg PO AC-BID 07/02/17 07/05/21 Sertraline [Zoloft] 100 mg PO BID 04/13/19 07/05/21 Previous Rx's Medication Instructions Recorded clonazePAM [KlonoPIN] 1 mg PO DAILY tab 10/14/17 clonazePAM [KlonoPIN] 2 mg PO HS tab 10/14/17 Gabapentin [Neurontin] 200 mg PO BID cap 12/09/17 Mirtazapine [Remeron] 45 mg PO HS #30 tablet 08/18/18 Allergies Allergy/AdvReac Type Severity Reaction Status Date / Time NSAIDS (Non-Steroidal Allergy Rash/Hives Verified 07/05/21 13:37 Anti-Inflamma Review of Systems ROS Statement: Those systems with pertinent positive or pertinent negative responses have been documented in the HPI. ROS Other: All systems not noted in ROS Statement are negative. Constitutional: Denies: fever, chills Respiratory: Denies: cough, dyspnea Cardiovascular: Denies: chest pain, palpitations Gastrointestinal: Denies: abdominal pain, nausea, vomiting, diarrhea Genitourinary: Denies: urgency, dysuria Skin: Denies: rash Neurological: Denies: headache Psychiatric: Reports: anxiety, depression. Denies: homicidal thoughts, suicidal thoughts Past Medical History Past Medical History: Coronary Artery Disease (CAD), Diabetes Mellitus, GERD/Reflux, Hyperlipidemia, Hypertension, Syncope Additional Past Medical History / Comment(s): IDDM type II, recurrent DKA, episodes of hyperosmolar nonketonic hyperglycemia, hypertensive heart disease, chronic pain syndrome, hypertriglyceridemia, chronic pancreatitis, chronic abdominal pain, gastroparesis, severe GERD, diabetic polyneuropathy mostly in hands and alittle in feet bilaterally, infectious colitis. History of Any Multi-Drug Resistant Organisms: None Reported Date of last positivie culture/infection: pt. unsure MDRO Source:: stool Past Surgical History: Cholecystectomy Additional Past Surgical History / Comment(s): Biliary stent through an ERCP that was performed at [facility] and stent removed 2007, lap jenn, colonoscopy, ERCP. Past Anesthesia/Blood Transfusion Reactions: No Reported Reaction Additional Past Anesthesia/Blood Transfusion Reaction / Comment(s): Pt has never received blood."CLAUSTERPHOBIA" Past Psychological History: Anxiety, Depression, Panic Disorder, PTSD Smoking Status: Never smoker Past Alcohol Use History: Rare Past Drug Use History: None Reported - Past Family History Sister(s) Additional Family Medical History / Comment(s): Patient has 2 sisters with no major medical problems. Daughter(s) Additional Family Medical History / Comment(s): Patient has 2 daughters and one had mitral valve replacement. Son(s) Additional Family Medical History / Comment(s): She has one son with no major medical problems. Brother(s) Additional Family Medical History / Comment(s): Does not have any brothers. Father Family Medical History: No Reported History Additional Family Medical History / Comment(s): Father is 81 years of age with severe anxiety and was hospitalized for this at times. Mother Family Medical History: Cancer Additional Family Medical History / Comment(s): Mother of metastatic breast CA at the age of 42yrs. pt. states her grandmother had diabetes as well General Exam Limitations: no limitations General appearance: alert, in no apparent distress Head exam: Present: atraumatic, normocephalic, normal inspection Respiratory exam: Present: normal lung sounds bilaterally. Absent: respiratory distress, wheezes, rales, rhonchi, stridor Cardiovascular Exam: Present: regular rate, normal rhythm, normal heart sounds. Absent: systolic murmur, diastolic murmur, rubs, gallop, clicks Neurological exam: Present: alert, oriented X3, CN II-XII intact Psychiatric exam: Present: flat affect. Absent: homicidal ideation, suicidal ideation Skin exam: Present: warm, dry, intact, normal color. Absent: rash Course Vital Signs 07/05/21 11:21 Temperature 97.6 F Pulse Rate 99 Respiratory 19 Rate Blood Pressure 131/81 O2 Sat by Pulse 100 Oximetry Medical Decision Making - Medical Decision Making This is a 56-year-old female who presents to the emergency department for psychiatric evaluation. Will obtain a glucose level, given her untreated diabetes. Glucose level at 307. Administered NovoLog and Levemir here in the emergency department. Will continue to closely monitor her sugars while the patient is here. Will also try to figure out with social work how she can obtain her medications despite her financial difficulties, as not having any treatment, especially for her diabetes, could be detrimental. EPS has evaluated the patient, the patient will be admitted to the psychiatric unit in this hospital. I concur with this plan. COVID test obtained prior to admission. - Lab Data Lab Results 07/05/21 07/05/21 07/05/21 Range/Units 13:22 13:48 15:02 POC Glucose (mg/dL) 307 H 251 H (75-99) mg/dL POC Glu Rn Charge ID Olamide, Renate Randolph, Irais Urine Color Yellow Urine Appearance Clear (Clear) Urine pH 5.0 (5.0-8.0) Ur Specific Kohler 1.035 (1.001-1.035) Urine Protein Negative (Negative) Urine Glucose (UA) 4+ H (Negative) Urine Ketones 1+ H (Negative) Urine Blood Trace H (Negative) Urine Nitrite Negative (Negative) Urine Bilirubin Negative (Negative) Urine Urobilinogen <2.0 (<2.0) mg/dL Ur Leukocyte Esterase Moderate H (Negative) Urine RBC 8 H (0-5) /hpf Urine WBC 15 H (0-5) /hpf Ur Squamous Epith Cells 1 (0-4) /hpf Urine Bacteria Occasional H (None) /hpf Urine Mucus Rare H (None) /hpf Urine Opiates Screen Not Detected (NotDetected) Ur Oxycodone Screen Not Detected (NotDetected) Urine Methadone Screen Not Detected (NotDetected) Ur Propoxyphene Screen Not Detected (NotDetected) Ur Barbiturates Screen Not Detected (NotDetected) U Tricyclic Antidepress Not Detected (NotDetected) Ur Phencyclidine Scrn Not Detected (NotDetected) Ur Amphetamines Screen Not Detected (NotDetected) U Methamphetamines Scrn Not Detected (NotDetected) U Benzodiazepines Scrn Not Detected (NotDetected) Urine Cocaine Screen Not Detected (NotDetected) U Marijuana (THC) Screen Not Detected (NotDetected) Coronavirus (PCR) (Not Detectd) 07/05/21 Range/Units 18:15 POC Glucose (mg/dL) (75-99) mg/dL POC Glu Rn Charge ID Urine Color Urine Appearance (Clear) Urine pH (5.0-8.0) Ur Specific Kohler (1.001-1.035) Urine Protein (Negative) Urine Glucose (UA) (Negative) Urine Ketones (Negative) Urine Blood (Negative) Urine Nitrite (Negative) Urine Bilirubin (Negative) Urine Urobilinogen (<2.0) mg/dL Ur Leukocyte Esterase (Negative) Urine RBC (0-5) /hpf Urine WBC (0-5) /hpf Ur Squamous Epith Cells (0-4) /hpf Urine Bacteria (None) /hpf Urine Mucus (None) /hpf Urine Opiates Screen (NotDetected) Ur Oxycodone Screen (NotDetected) Urine Methadone Screen (NotDetected) Ur Propoxyphene Screen (NotDetected) Ur Barbiturates Screen (NotDetected) U Tricyclic Antidepress (NotDetected) Ur Phencyclidine Scrn (NotDetected) Ur Amphetamines Screen (NotDetected) U Methamphetamines Scrn (NotDetected) U Benzodiazepines Scrn (NotDetected) Urine Cocaine Screen (NotDetected) U Marijuana (THC) Screen (NotDetected) Coronavirus (PCR) Not Detected (Not Detectd) Disposition Clinical Impression: Adjustment reaction of adult life, Depression Disposition: ADMITTED IP TO THIS [facility] Referrals: Mike Borges MD [Primary Care Provider] - 1-2 days
[2021-07-05 13:38] LABS: Appearance,Urine Clear (Clear); Bacteria,Urine Occasional /hpf; Bilirubin,Urine Negative (Negative); Blood,Urine Trace (Negative); Color,Urine Yellow; Glucose,Urine (UA) 4+ (Negative); Ketones,Urine 1+ (Negative); Leukocyte Esterase,Urine Moderate (Negative); Mucus,Urine Rare /hpf; Nitrite,Urine Negative (Negative); Protein,Urine Negative (Negative); RBC,Urine 8 /hpf (0-5); Specific Gravity,Urine 1.035 (1.001-1.035); Squamous Epithelial Cell,Urine 1 /hpf (0-4); Urobilinogen,Urine <2.0 mg/dL (<2.0); WBC,Urine 15 /hpf (0-5)
[2021-07-05 13:44] LABS: Amphetamine Screen,Urine Not Detected (NotDetected); Barbiturate Screen,Urine Not Detected (NotDetected); Benzodiazepines Screen,Urine Not Detected (NotDetected); Cocaine Screen,Urine Not Detected (NotDetected); Methadone Screen, Urine Not Detected (NotDetected); Opiate Screen,Urine Not Detected (NotDetected); Oxycodone Screen, Urine Not Detected (NotDetected); Phencyclidine Screen,Urine Not Detected (NotDetected); Tricyclic Antidepressant,Urine Not Detected (NotDetected); Urn Cannabinoid Scrn Not Detected (NotDetected)
[2021-07-05 13:50] LABS: Glucose,Whole Blood 307 mg/dL (75-99)
[2021-07-05] MEDS: INSULIN ASPART (NovoLOG) 100 UNIT/ML VIAL SQ SCH (14:33)
[2021-07-05 15:04] LABS: Glucose,Whole Blood 251 mg/dL (75-99)
[2021-07-05] MEDS ORDERED: MAG HYDROX/AL HYDROX/SIMETH 30 ML CUP PO PRN (19:07)
[2021-07-05] MEDS ORDERED: ACETAMINOPHEN TAB 325 MG TAB PO PRN (19:07)
[2021-07-05] MEDS ORDERED: LORazepam 1 MG TAB PO PRN (19:07)
[2021-07-05] MEDS ORDERED: MAGNESIUM HYDROXIDE 2,400 MG/10 ML CUP PO PRN (19:07)
[2021-07-05] MEDS ORDERED: HALOPERIDOL LACTATE 5 MG/ML 1 ML VIAL IM PRN (19:07)
[2021-07-05] MEDS ORDERED: LORazepam 2 MG/ML INJ IM PRN (19:23)
[2021-07-05 19:56] LABS: Glucose,Whole Blood 271 mg/dL (75-99)
[2021-07-05] MEDS: CALCIUM CARB-VIT D 500 MG-5 MCG TAB PO SCH (21:38)
[2021-07-05] MEDS: GABAPENTIN 100 MG CAP PO SCH (21:38)
[2021-07-05] MEDS: ATORVASTATIN 80 MG TAB PO SCH (21:38)
[2021-07-05] MEDS: NIACIN TR 500 MG CAPLET PO SCH (21:39)
[2021-07-05] MEDS: MIRTAZAPINE 45 MG TABLET PO SCH (21:39)
[2021-07-05] MEDS: INSULIN DETEMIR (LEVEMIR) 100 UNIT/ML SYR SQ SCH (21:39)
[2021-07-05] MEDS: SERTRALINE 100 MG TAB PO SCH (21:39)
[2021-07-06 07:48] LABS: Glucose,Whole Blood 284 mg/dL (75-99)
[2021-07-06] MEDS: INSULIN ASPART (NovoLOG) 100 UNIT/ML VIAL SQ SCH ×6 (08:04→20:29)
[2021-07-06] MEDS ORDERED: ONDANSETRON 4 MG TAB PO PRN (08:37)
--- NOTE | 2021-07-06 08:58 | P.MDCNMH ---
History of Present Illness H&P Date: 07/06/21 HISTORY OF PRESENT ILLNESS This is a 56-year-old female patient of Dr. Borges with previous medical history significant for familial dyslipidemia, recurrent pancreatitis and chronic abdominal pain, thought to be due to hypertriglyceridemia, hypertension and hypertensive cardiovascular disease, diabetes mellitus type 2 with recurrent diabetic ketoacidosis as well as episodes of hyperosmolar nonketotic hyperglycemia, chronic pain syndrome, gastroparesis, gastroesophageal reflux disease, diabetic polyneuropathy. Patient was hospitalized directly 3 weeks ago at [facility] due to hyperglycemia. She now presented to the emergency center brought in by her daughter for evaluation for psychiatric care. Patient has been living in poor living conditions, utilities have been shut off. Patient states that it was the heat and electricity first and then her water which shut off 2 days ago. Family was concerned about hoarding behavior as well. Apparently patient's disability was stopped and she did not complete some documentation. No suicidal or homicidal thoughts. Patient is anxious and depressed. [facility] but has not followed with anybody since. Patient is complaining of nausea. No vomiting. No diarrhea. Abdominal pain is chronic. REVIEW OF SYSTEMS Constitutional: No fever, no chills, no night sweats. No weight change. No weakness, fatigue or lethargy. No daytime sleepiness. EENT: No headache. No blurred vision or double vision, no loss of vision. No loss of Hearing, no ringing in the ears, no dizziness. No nasal drainage or congestion. No epistaxis. No sore throat. Lungs: No shortness of breath, cough, no sputum production. No wheezing. Cardiovascular: No chest pain, no lower extremity edema. No palpitations. No paroxysmal nocturnal dyspnea. No orthopnea. No lightheadedness or dizziness. No syncopal episodes. Abdominal: No abdominal pain. Reports nausea, no vomiting. No diarrhea. No constipation. No bloody or tarry stools. No loss of appetite. Genitourinary: No dysuria, increased frequency, urgency. No urinary retention. Musculoskeletal: No myalgias. No muscle weakness, no gait dysfunction, no frequent falls. No back pain. No neck pain. Integumentary: No wounds, no lesions. No rash or pruritus. No unusual bruising. No change in hair or nails. Neurologic: No aphasia. No facial droop. No change in mentation. No head injury. No headache. No paralysis. No paresthesia. Psychiatric: Reports depression. Reports anxiety. No mood swings. Denies suicidal or homicidal thoughts. Endocrine: Noted abnormal blood sugars. No weight change. No excessive sweating or thirst. No cold intolerance. MEDICAL HISTORY Familial dyslipidemia Pancreatitis and chronic abdominal pain due to hypertriglyceridemia Hypertension and hypertensive cardiovascular disease Diabetes mellitus type 2 Diabetic ketoacidosis with frequent hospitalizations due to hyperosmolar nonketotic hyperglycemia Chronic pain syndrome Gastroparesis Gastroesophageal reflux disease Diabetic neuropathy SURGICAL HISTORY Laparoscopic cholecystectomy ERCP with biliary stent SOCIAL HISTORY Patient is a lifelong nonsmoker, rare alcohol use. She lives alone with her dog. She is normally on disability. Family help with transportation. Daughters and son provide assistance. FAMILY HISTORY Father is with severe anxiety. Mother from metastatic breast cancer at the age of 42. Patient does not have any brothers. She has 2 sisters with no major medical problems. She has 2 daughters and one had mitral valve replacement. She has one son with no major medical problems.. PHYSICAL EXAMINATION Gen: This is a 56-year-old female, resting in bed in the mental health unit. Patient is awake and cooperative. HEENT: Head is atraumatic, normocephalic. Pupils equal, round. Sclerae is anicteric. NECK: Supple. No JVD. No lymphadenopathy. No thyromegaly. LUNGS: Clear to auscultation. No wheezes or rhonchi. No intercostal retractions. HEART: Regular rate and rhythm. No murmur. ABDOMEN: Soft. Bowel sounds are present. No masses. Epigastric/upper quadrants tenderness. EXTREMITIES: No pedal edema. No calf tenderness. NEUROLOGICAL: Patient is awake, alert and oriented x3. Cranial nerves 2 through 12 are grossly intact. ASSESSMENT AND PLAN 1. Recurrent depression and generalized anxiety disorder. Patient admitted to health unit. Continue current plan per psychiatrist. 2. Diabetes mellitus type 2, insulin requiring. Patient is on Levemir 44 units at bedtime along with Humalog scheduled 14 units 3 times daily with meals and NovoLog scale added. 3. Hypertension and hypertensive cardiovascular disease with left ventricular hypertrophy. Continue atenolol 100 mg orally once every day as well as lisinopril 20 mg orally once every day. 4. Hyperlipidemia. Continue crestor 40 mg orally once every day, gemfibrozil 6000 mg orally twice daily, Niacin 1000 mg orall daily. 5. Diabetic polyneuropathy. Continue gabapentin 200 mg orally twice every day. 6. Generalized anxiety disorder. Patient has been on Klonopin 2 milligram in the evening and 1 mg in the morning. 7. Gastroparesis. 8. Chronic pancreatitis, stable without exacerbation. DISCHARGE PLAN Home. Follow-up with Dr. Borges one week after discharge. Impression and plan of care have been directed as dictated by the signing physician. Amanda Kumar nurse practitioner acting as scribe for signing physician. Past Medical History Past Medical History: Coronary Artery Disease (CAD), Diabetes Mellitus, GERD/Reflux, Hyperlipidemia, Hypertension, Syncope Additional Past Medical History / Comment(s): IDDM type II, recurrent DKA, episodes of hyperosmolar nonketonic hyperglycemia, hypertensive heart disease, chronic pain syndrome, hypertriglyceridemia, chronic pancreatitis, chronic abdominal pain, gastroparesis, severe GERD, diabetic polyneuropathy mostly in hands and alittle in feet bilaterally, infectious colitis. History of Any Multi-Drug Resistant Organisms: None Reported Date of last positivie culture/infection: pt. unsure MDRO Source:: stool Past Surgical History: Cholecystectomy Additional Past Surgical History / Comment(s): Biliary stent through an ERCP that was performed at [facility] and stent removed 2007, lap jenn, colonoscopy, ERCP. Past Anesthesia/Blood Transfusion Reactions: No Reported Reaction Additional Past Anesthesia/Blood Transfusion Reaction / Comment(s): Pt has never received blood."CLAUSTERPHOBIA" Past Psychological History: Anxiety, Depression, Panic Disorder, PTSD Additional Psychological History / Comment(s): Pt lives in her own home. She is independent. She currently is on disability. She drives a car a limited amount- family drive her places at times. She has anxiety and occasional anxiety-panic attacks. She states her current psych med [employer] is working well. She has a rescue dog. Smoking Status: Never smoker Past Alcohol Use History: Rare Additional Past Alcohol Use History / Comment(s): patient lives at home alone with dog. She is independent. She is currently on disability. She drives a car limited amount. She has anxiety and occasional anxiety or panic attacks. She sees Dr. Fink at [facility]. Her daughter and father help her out. She has a rescue dog. Past Drug Use History: None Reported - Past Family History Sister(s) Additional Family Medical History / Comment(s): Patient has 2 sisters with no major medical problems. Daughter(s) Additional Family Medical History / Comment(s): Patient has 2 daughters and one had mitral valve replacement. Son(s) Additional Family Medical History / Comment(s): She has one son with no major medical problems. Brother(s) Additional Family Medical History / Comment(s): Does not have any brothers. Father Family Medical History: No Reported History Additional Family Medical History / Comment(s): Father is 81 years of age with severe anxiety and was hospitalized for this at times. Mother Family Medical History: Cancer Additional Family Medical History / Comment(s): Mother of metastatic breast CA at the age of 42yrs. pt. states her grandmother had diabetes as well Medications and Allergies Home Medications Medication Instructions Recorded Confirmed Type lisinopriL [Zestril] 20 mg PO DAILY 09/09/13 07/05/21 History Multivitamins, Thera [Multivitamin 1 tab PO DAILY 09/17/14 07/05/21 History (formulary)] Atenolol [Tenormin] 100 mg PO DAILY 11/19/14 07/05/21 History Calcium Carb-Vit D 500Mg-5Mcg 1 tab PO BID 11/19/14 07/05/21 History [Oscal 500+D 5 Mcg (200 Iu)] Rosuvastatin Calcium [Crestor] 40 mg PO HS 11/19/14 07/05/21 History Insulin Aspart [NovoLOG Flexpen] 14 unit SQ AC-TID 10/14/15 07/05/21 History Niacin 1,000 mg PO HS 02/04/16 07/05/21 History Insulin Detemir (Levemir) [Levemir] 44 unit SQ HS 07/21/16 07/05/21 History gemfibroziL [Lopid] 600 mg PO AC-BID 07/02/17 07/05/21 History clonazePAM [KlonoPIN] 1 mg PO DAILY tab 10/14/17 07/05/21 Rx clonazePAM [KlonoPIN] 2 mg PO HS tab 10/14/17 07/05/21 Rx Gabapentin [Neurontin] 200 mg PO BID cap 12/09/17 07/05/21 Rx Mirtazapine [Remeron] 45 mg PO HS #30 tablet 08/18/18 07/05/21 Rx Sertraline [Zoloft] 100 mg PO BID 04/13/19 07/05/21 History Allergies Allergy/AdvReac Type Severity Reaction Status Date / Time NSAIDS (Non-Steroidal Allergy Rash/Hives Verified 07/05/21 13:37 Anti-Inflamma Physical Exam Vitals: Vital Signs Temp Pulse Pulse Resp BP BP Pulse Ox 07/06/21 06:55 97.6 F 96 115/66 98 07/05/21 21:42 97.4 F L 116 H 18 122/77 96 07/05/21 11:21 97.6 F 99 19 131/81 100 Intake and Output 07/05/21 07/06/21 07/06/21 22:59 06:59 14:59 Other: Weight 63.503 kg Cranial Nerve Examination - Cranial Nerves Cranial Nerve I- Olfactory: Intact Cranial Nerve II- Optic: Intact Cranial Nerve III- Oculomotor: Intact Cranial Nerve IV- Trochlear: Intact Cranial Nerve V- Trigeminal: Intact Cranial Nerve - Abducens: Intact Cranial Nerve VII- Facial: Intact Cranial Nerve VIII- Auditory: Intact Cranial Nerve IX- Glossopharyngeal: Intact Cranial Nerve X- Vagus: Intact Cranial Nerve XI- Accessory: Intact Cranial Nerve XII- Hypoglossal: Intact Results Labs: Abnormal Lab Results - Last 24 Hours (Table) 07/05/21 07/05/21 07/05/21 Range/Units 13:22 13:48 15:02 POC Glucose (mg/dL) 307 H 251 H (75-99) mg/dL Urine Glucose (UA) 4+ H (Negative) Urine Ketones 1+ H (Negative) Urine Blood Trace H (Negative) Ur Leukocyte Esterase Moderate H (Negative) Urine RBC 8 H (0-5) /hpf Urine WBC 15 H (0-5) /hpf Urine Bacteria Occasional H (None) /hpf Urine Mucus Rare H (None) /hpf 07/05/21 07/06/21 Range/Units 19:54 07:46 POC Glucose (mg/dL) 271 H 284 H (75-99) mg/dL Urine Glucose (UA) (Negative) Urine Ketones (Negative) Urine Blood (Negative) Ur Leukocyte Esterase (Negative) Urine RBC (0-5) /hpf Urine WBC (0-5) /hpf Urine Bacteria (None) /hpf Urine Mucus (None) /hpf Microbiology - Last 24 Hours (Table) 07/05/21 13:22 Urine Culture - Preliminary Urine,Voided
[2021-07-06] MEDS: GABAPENTIN 100 MG CAP PO SCH ×2 (09:00→21:09)
[2021-07-06] MEDS ORDERED: clonazePAM 1 MG TAB PO SCH (09:00)
[2021-07-06] MEDS: CALCIUM CARB-VIT D 500 MG-5 MCG TAB PO SCH ×2 (09:00→21:09)
[2021-07-06] MEDS: SERTRALINE 100 MG TAB PO SCH (09:00)
[2021-07-06] MEDS: MULTIVITAMINS, THERA 1 EACH TAB PO SCH (09:00)
[2021-07-06] MEDS: lisinopriL 20 MG TAB PO SCH (09:00)
[2021-07-06] MEDS: FENOFIBRATE 160 MG TAB PO SCH (09:00)
[2021-07-06] MEDS: NICOTINE 14MG/24HR PATCH TRANSDERM SCH (09:01)
[2021-07-06] MEDS: atenoloL 50 MG TAB PO SCH (09:01)
[2021-07-06 11:08] LABS: Basophils % (A) 0 %; Eosinophils # (A) 0.1 k/uL (0-0.7); Eosinophils % (A) 1 %; HGB 14.8 gm/dL (11.4-16.0); Lymphocytes # (A) 1.8 k/uL (1.0-4.8); Lymphocytes % (A) 21 %; MCH 31.2 pg (25.0-35.0); MCHC 33.6 g/dL (31.0-37.0); MCV 92.9 fL (80.0-100.0); Mean Platelet Volume 7.2; Monocytes # (A) 0.3 k/uL (0-1.0); Monocytes % (A) 3 %; Neutrophils # (A) 6.4 k/uL (1.3-7.7); Neutrophils % (A) 74 %; Platelet Count 194 k/uL (150-450); RBC 4.74 m/uL (3.80-5.40); RDW 13.2 % (11.5-15.5); WBC 8.6 k/uL (3.8-10.6)
[2021-07-06 11:11] LABS: ALT 30 U/L (4-34); AST 42 U/L (14-36); African American GFR (CKD) >90 (>60 ml/min/1.73 sqM); Albumin 4.1 g/dL (3.5-5.0); Alkaline Phosphatase 89 U/L (38-126); Anion Gap 14 mmol/L; Blood Urea Nitrogen 11 mg/dL (7-17); Carbon Dioxide 19 mmol/L (22-30); Chloride 106 mmol/L (98-107); Glucose 316 mg/dL (74-99); Non-African American GFR(CKD) >90 (>60 ml/min/1.73 sqM); Potassium 3.9 mmol/L (3.5-5.1); Sodium 139 mmol/L (137-145); Total Bilirubin 1.2 mg/dL (0.2-1.3); Total Protein 6.9 g/dL (6.3-8.2)
[2021-07-06] MEDS ORDERED: SERTRALINE 100 MG TAB PO ONE (12:00)
[2021-07-06 12:47] LABS: Glucose,Whole Blood 224 mg/dL (75-99)
--- NOTE | 2021-07-06 13:11 | P.HP ---
Psychiatric H&P - . H&P Date: 07/06/21 History & Physical: Allergies Allergy/AdvReac Type Severity Reaction Status Date / Time NSAIDS (Non-Steroidal Allergy Rash/Hives Verified 07/05/21 13:37 Anti-Inflamma Vital Signs Temp 97.6 F 07/06/21 06:55 Pulse 114 H 07/06/21 09:04 Resp 18 07/05/21 21:42 BP 116/70 07/06/21 09:04 Pulse Ox 98 07/06/21 06:55 Intake & Output 07/05/21 07/06/21 07/06/21 18:59 06:59 18:59 Weight 63.503 kg 63.503 kg Laboratory Last Values WBC 8.6 k/uL (3.8-10.6) 07/06/21 10:14 RBC 4.74 m/uL (3.80-5.40) 07/06/21 10:14 Hgb 14.8 gm/dL (11.4-16.0) 07/06/21 10:14 Hct 44.0 % (34.0-46.0) 07/06/21 10:14 MCV 92.9 fL (80.0-100.0) 07/06/21 10:14 MCH 31.2 pg (25.0-35.0) 07/06/21 10:14 MCHC 33.6 g/dL (31.0-37.0) 07/06/21 10:14 RDW 13.2 % (11.5-15.5) 07/06/21 10:14 Plt Count 194 k/uL (150-450) 07/06/21 10:14 MPV 7.2 07/06/21 10:14 Neutrophils % 74 % 07/06/21 10:14 Lymphocytes % 21 % 07/06/21 10:14 Monocytes % 3 % 07/06/21 10:14 Eosinophils % 1 % 07/06/21 10:14 Basophils % 0 % 07/06/21 10:14 Neutrophils # 6.4 k/uL (1.3-7.7) 07/06/21 10:14 Lymphocytes # 1.8 k/uL (1.0-4.8) 07/06/21 10:14 Monocytes # 0.3 k/uL (0-1.0) 07/06/21 10:14 Eosinophils # 0.1 k/uL (0-0.7) 07/06/21 10:14 Basophils # 0.0 k/uL (0-0.2) 07/06/21 10:14 Sodium 139 mmol/L (137-145) 07/06/21 10:14 Potassium 3.9 mmol/L (3.5-5.1) 07/06/21 10:14 Chloride 106 mmol/L (98-107) 07/06/21 10:14 Carbon Dioxide 19 mmol/L (22-30) L 07/06/21 10:14 Anion Gap 14 mmol/L 07/06/21 10:14 BUN 11 mg/dL (7-17) 07/06/21 10:14 Creatinine 0.70 mg/dL (0.52-1.04) 07/06/21 10:14 Est GFR (CKD-EPI)AfAm >90 (>60 ml/min/1.73 sqM) 07/06/21 10:14 Est GFR (CKD-EPI)NonAf >90 (>60 ml/min/1.73 sqM) 07/06/21 10:14 Glucose 316 mg/dL (74-99) H 07/06/21 10:14 POC Glucose (mg/dL) 284 mg/dL (75-99) H 07/06/21 07:46 POC Glu Slitter And Cutter Operator ID Arturo Brown 07/06/21 07:46 Calcium 10.0 mg/dL (8.4-10.2) 07/06/21 10:14 Total Bilirubin 1.2 mg/dL (0.2-1.3) 07/06/21 10:14 AST 42 U/L (14-36) H 07/06/21 10:14 ALT 30 U/L (4-34) 07/06/21 10:14 Alkaline Phosphatase 89 U/L (38-126) 07/06/21 10:14 Total Protein 6.9 g/dL (6.3-8.2) 07/06/21 10:14 Albumin 4.1 g/dL (3.5-5.0) 07/06/21 10:14 TSH 0.916 mIU/L (0.465-4.680) 07/06/21 10:14 Urine Color Yellow 07/05/21 13:22 Urine Appearance Clear (Clear) 07/05/21 13:22 Urine pH 5.0 (5.0-8.0) 07/05/21 13:22 Ur Specific [place] 1.035 (1.001-1.035) 07/05/21 13:22 Urine Protein Negative (Negative) 07/05/21 13:22 Urine Glucose (UA) 4+ (Negative) H 07/05/21 13:22 Urine Ketones 1+ (Negative) H 07/05/21 13:22 Urine Blood Trace (Negative) H 07/05/21 13:22 Urine Nitrite Negative (Negative) 07/05/21 13:22 Urine Bilirubin Negative (Negative) 07/05/21 13:22 Urine Urobilinogen <2.0 mg/dL (<2.0) 07/05/21 13:22 Ur Leukocyte Esterase Moderate (Negative) H 07/05/21 13:22 Urine RBC 8 /hpf (0-5) H 07/05/21 13:22 Urine WBC 15 /hpf (0-5) H 07/05/21 13:22 Ur Squamous Epith Cells 1 /hpf (0-4) 07/05/21 13:22 Urine Bacteria Occasional /hpf (None) H 07/05/21 13:22 Urine Mucus Rare /hpf (None) H 07/05/21 13:22 Urine Opiates Screen Not Detected (NotDetected) 07/05/21 13:22 Ur Oxycodone Screen Not Detected (NotDetected) 07/05/21 13:22 Urine Methadone Screen Not Detected (NotDetected) 07/05/21 13:22 Ur Propoxyphene Screen Not Detected (NotDetected) 07/05/21 13:22 Ur Barbiturates Screen Not Detected (NotDetected) 07/05/21 13:22 U Tricyclic Antidepress Not Detected (NotDetected) 07/05/21 13:22 Ur Phencyclidine Scrn Not Detected (NotDetected) 07/05/21 13:22 Ur Amphetamines Screen Not Detected (NotDetected) 07/05/21 13:22 U Methamphetamines Scrn Not Detected (NotDetected) 07/05/21 13:22 U Benzodiazepines Scrn Not Detected (NotDetected) 07/05/21 13:22 Urine Cocaine Screen Not Detected (NotDetected) 07/05/21 13:22 U Marijuana (THC) Screen Not Detected (NotDetected) 07/05/21 13:22 Coronavirus (PCR) Not Detected (Not Detectd) 07/05/21 18:15 07/06/21 11:58 IDENTIFYING DATA: Patient is a 56-year-old female who is currently , has 3 kids, living alone in a house, unemployed. HPI: Patient presented to the hospital yesterday and was brought in by her daughter for psychiatric evaluation. Apparently there is concern by the daughter that patient has been hoarding and feeling depressed and anxious at home. The concern was that patient is not being taking care of herself and in a poor living condition. Patient claims she lost her disability check about 2-3 months ago and has not been able to pay for utilities. She was seen today and agreeable to seek a show card writer. She. Poor hygiene and grooming. She also states that she is feeling nauseous earlier. She claims that she has been feeling depressed and anxious lately. She claims that she does not have an income at this time and her utilities were shot off. She claims that she has not been taking care of her diabetes appropriately with proper food and medications. She claims that her family has been concerned about her. She states that she lives alone and admits to hoarding behavior. She claims that the "squirrels took over the back side of the house". She states that her house is pretty much ruined. She claims that she has been feeling more anxious and depressed lately however was agreeable to take medications. She did claim that she has been taking her Zoloft Klonopin and Remeron at home. She states that her appetite and sleep has been fair. Patient denies any suicidal or homicidal ideations intent or plan. At this time patient denies any auditory or visual hallucinations. Patient denies any flight of ideas racing thoughts and increased in goal directed behavior. Patient admits to using no recreational drugs or cigarettes. PAST PSYCHIATRIC HISTORY: Patient states that she has history of anxiety and depression. She is currently on Zoloft and Remeron and Klonopin. She states that she was previously admitted psychiatrically here about 10 years ago. She states that she is to follow-up with Dr. Haddad and Dr Mann. Patient denies any history of suicide attempts in the past. Past Medical History: Coronary Artery Disease (CAD), Diabetes Mellitus, GERD/Reflux, Hyperlipidemia, Hypertension, Syncope Additional Past Medical History / Comment(s): IDDM type II, recurrent DKA, episodes of hyperosmolar nonketonic hyperglycemia, hypertensive heart disease, chronic pain syndrome, hypertriglyceridemia, chronic pancreatitis, chronic abdominal pain, gastroparesis, severe GERD, diabetic polyneuropathy mostly in hands and alittle in feet bilaterally, infectious colitis. ALLERGIES: as per EMR CHEMICAL DEPENDENCY HISTORY: as per HPI FAMILY PSYCHIATRIC/SUBSTANCE USE HISTORY: She states that her father had depression and anxiety. SOCIAL HISTORY: Patient was born and raised in [facility]. She states that she completed high school and college. She denies any legal history. 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 She has 3 kids. She is currently . She lives alone in a house. MENTAL STATUS EXAM: General Appearance: Patient appears to be thin, disheveled, stated age is alert, directable, and attempts to cooperate. Patient appears to have poor hygiene and grooming. Behavior: Patient is seated without any agitated behavior. Speech: Patient's speech is fluent and nonpressured. Rambles. Mood/Affect: Patient reports their mood is depressed and anxious, affect is congruent and constricted. Suicidality/Homicidality: Patient denies having any homicidal ideation intent or plan. Denies any suicidal ideations intent or plan Perceptions: Patient denies any visual hallucinations and denies any auditory hallucinations Though content/process: Rambles, logical, tangential/circumstantial. Worsening any delusions. Memory and concentration: AOX3, grossly intact for the purposes of this session. Can spell "WORLD" backwards Judgment and insight: poor STRENGTHS/WEAKNESSES: strength is that patient is resilient. Weakness is that patient has poor judgment and is not taking care of herself INTELLECT: average IMPRESSIONS: Major depressive disorder, without psychotic features Generalized anxiety disorder Hoarding disorder PLAN: -Patient is admitted under voluntary status to [facility] for stabilization of psychiatric symptoms and safety. Patient has signed adult voluntary form and medication consent and is placed in patient's chart. -Medications : Will start patient on a decreased dose of Klonopin down to 1 mg twice a day for anxiety. Continue Zoloft 200 mg daily or mood/anxiety. Remeron 45 mg daily at bedtime for sleep/mood/anxiety. -Ativan and Haldol PRN for agitation/aggression -Patient was informed of the risks, benefits and side effects of the medication and patient verbally consented to taking the medications. Patient signed med consent form and was placed in chart. -Internal Medicine consult to perform medical evaluation and physical. -NRT - not needed as patient does not smoke -SW on board for discharge planning. Encourage patient to participate in groups to work on coping skills. 07/06/21 13:08
[2021-07-06 14:32] LABS: Appearance,Urine Cloudy (Clear); Bacteria,Urine Rare /hpf; Bilirubin,Urine Negative (Negative); Blood,Urine Negative (Negative); Color,Urine Yellow; Glucose,Urine (UA) 4+ (Negative); Hyaline Casts,Urine 3 /lpf (0-2); Ketones,Urine 1+ (Negative); Leukocyte Esterase,Urine Large (Negative); Mucus,Urine Rare /hpf; Nitrite,Urine Negative (Negative); Protein,Urine Trace (Negative); RBC,Urine 10 /hpf (0-5); Specific Gravity,Urine 1.023 (1.001-1.035); Squamous Epithelial Cell,Urine 5 /hpf (0-4); Urobilinogen,Urine <2.0 mg/dL (<2.0); WBC,Urine 77 /hpf (0-5)
[2021-07-06 14:36] LABS: Amphetamine Screen,Urine Not Detected (NotDetected); Barbiturate Screen,Urine Not Detected (NotDetected); Benzodiazepines Screen,Urine Detected (NotDetected); Cocaine Screen,Urine Not Detected (NotDetected); Methadone Screen, Urine Not Detected (NotDetected); Opiate Screen,Urine Not Detected (NotDetected); Oxycodone Screen, Urine Not Detected (NotDetected); Phencyclidine Screen,Urine Not Detected (NotDetected); Tricyclic Antidepressant,Urine Not Detected (NotDetected); Urn Cannabinoid Scrn Not Detected (NotDetected)
[2021-07-06 17:36] LABS: Glucose,Whole Blood 140 mg/dL (75-99)
[2021-07-06 19:19] LABS: Chol/HDL Ratio 8.49 Ratio
[2021-07-06 19:56] LABS: Glucose,Whole Blood 201 mg/dL (75-99)
[2021-07-06] MEDS: ATORVASTATIN 80 MG TAB PO SCH (21:08)
[2021-07-06] MEDS: MIRTAZAPINE 45 MG TABLET PO SCH (21:08)
[2021-07-06] MEDS: NIACIN TR 500 MG CAPLET PO SCH (21:08)
[2021-07-06] MEDS: clonazePAM 1 MG TAB PO SCH (21:09)
[2021-07-06] MEDS: INSULIN DETEMIR (LEVEMIR) 100 UNIT/ML SYR SQ SCH (21:09)
[2021-07-07 07:56] LABS: Glucose,Whole Blood 225 mg/dL (75-99)
[2021-07-07] MEDS: NICOTINE 14MG/24HR PATCH TRANSDERM SCH (08:09)
[2021-07-07] MEDS: FENOFIBRATE 160 MG TAB PO SCH (08:10)
[2021-07-07] MEDS: clonazePAM 1 MG TAB PO SCH ×2 (08:10→21:28)
[2021-07-07] MEDS: CALCIUM CARB-VIT D 500 MG-5 MCG TAB PO SCH ×2 (08:11→21:26)
[2021-07-07] MEDS: GABAPENTIN 100 MG CAP PO SCH ×2 (08:11→21:26)
[2021-07-07] MEDS: lisinopriL 20 MG TAB PO SCH (08:11)
[2021-07-07] MEDS: SERTRALINE 100 MG TAB PO SCH (08:11)
[2021-07-07] MEDS: MULTIVITAMINS, THERA 1 EACH TAB PO SCH (08:11)
[2021-07-07] MEDS: atenoloL 50 MG TAB PO SCH (08:12)
[2021-07-07] MEDS: INSULIN ASPART (NovoLOG) 100 UNIT/ML VIAL SQ SCH ×7 (08:12→20:18)
--- NOTE | 2021-07-07 10:31 | P.PN ---
Progress Note - Text Progress Note Date: 07/07/21 Interval History: Patient was seen sitting in on group today and was directable and agreeable to speak with underwriter mortgage loan in the office. Patient appears to have mild improvement in her hygiene and grooming. She continues to ramble at times and was tangential. She states that she is doing a bit better since she came into the hospital. She states that now she is back on her regular medications and feels more comfortable. She states that she has been trying to go to groups and enjoys the activity groups more. She states that she did speak with her daughter over the phone who wants her to work on "herself" while she is in the hospital and states that it is going to take "weeks" for them to clean out her house and will likely have to be sold. She states that she does not know where she will go upon discharge. She claims that her depression and anxiety of them gradually improving. She states that she is able to sleep fairly last night and has a fair appetite. At this time patient denies any suicidal or homical ideations, intent or plan. Patient denies any auditory, visual hallucinations and denies any paranoia or delusions. Patient denies any side effects from the medications and has been compliant with meds. Mental Status Exam: General Appearance: Patient appears to be improving in terms of hygiene, stated age is alert, directable, and cooperative. Behavior: Patient is calmly seated without any agitated behavior. Speech: Patient's speech is fluent and nonpressured. Soft tone Mood/Affect: Mood is improving mildly, affect is congruent and constricted. Suicidality/Homicidality: Patient denies having any suicidal or homicidal ideation intent or plan. Perceptions: Patient denies any visual hallucinations and denies any auditory hallucinations Though content/process: Rambles, logical, improving. No delusions. Memory and concentration: AOX3, grossly intact for the purposes of this session Judgment and insight: Poor, Improving mildly Assessment Major depressive disorder, without psychotic features Generalized anxiety disorder Hoarding disorder Plan: -Patient continues to meet criteria for inpatient psychiatric admission for symptom stabilization and safety. Patient has not signed adult voluntary form and medication consent and was placed in patient's chart. -Medications: Klonopin 1 mg twice a day for anxiety. Continue Zoloft 200 mg daily or mood/anxiety. Remeron 45 mg daily at bedtime for sleep/mood/anxiety. -When necessary Ativan and Haldol for agitation/aggression. -NRT -not needed as patient does not smoke -SW on board for discharge planning. Encouraged the patient to participate in milieu. ostrich farm worker to follow up with patient's daughter to help with discharge planning. Likely discharge in 2-3 days.
[2021-07-07 10:57] VITALS: BMI 24.0
[2021-07-07 12:42] LABS: Glucose,Whole Blood 253 mg/dL (75-99)
[2021-07-07 17:38] LABS: Glucose,Whole Blood 234 mg/dL (75-99)
[2021-07-07 19:53] LABS: Glucose,Whole Blood 281 mg/dL (75-99)
[2021-07-07] MEDS: MIRTAZAPINE 45 MG TABLET PO SCH (21:26)
[2021-07-07] MEDS: ATORVASTATIN 80 MG TAB PO SCH (21:26)
[2021-07-07] MEDS: INSULIN DETEMIR (LEVEMIR) 100 UNIT/ML SYR SQ SCH (21:26)
[2021-07-07] MEDS: NIACIN TR 500 MG CAPLET PO SCH (21:27)
[2021-07-08 07:49] LABS: Glucose,Whole Blood 212 mg/dL (75-99)
[2021-07-08] MEDS: GABAPENTIN 100 MG CAP PO SCH ×2 (08:05→20:06)
[2021-07-08] MEDS: INSULIN ASPART (NovoLOG) 100 UNIT/ML VIAL SQ SCH ×7 (08:10→20:07)
[2021-07-08] MEDS: FENOFIBRATE 160 MG TAB PO SCH (08:11)
[2021-07-08] MEDS: atenoloL 50 MG TAB PO SCH (08:11)
[2021-07-08] MEDS: MULTIVITAMINS, THERA 1 EACH TAB PO SCH (08:11)
[2021-07-08] MEDS: clonazePAM 1 MG TAB PO SCH ×2 (08:12→20:06)
[2021-07-08] MEDS: SERTRALINE 100 MG TAB PO SCH (08:12)
[2021-07-08] MEDS: lisinopriL 20 MG TAB PO SCH (08:12)
[2021-07-08] MEDS: CALCIUM CARB-VIT D 500 MG-5 MCG TAB PO SCH ×2 (08:13→20:05)
[2021-07-08] MEDS: NICOTINE 14MG/24HR PATCH TRANSDERM SCH (08:13)
--- NOTE | 2021-07-08 10:18 | P.PN ---
Progress Note - Text Progress Note Date: 07/08/21 Interval History: Patient was seen sitting in on group today and was directable and agreeable to speak with film writer in the office. Patient appears to have mild improvement in her hygiene and grooming. She continues to ramble at times and was tangential which has been improving. She continues to speak about her children and also her housing situation. She states that her kids have been trying to help with cleaning out the house. She states that its going to take time to clean out the house because of the severity of the hoarding situation. She continues to state that she does not know where she will be living when she leaves the hospital tomorrow. She states that her mood has been improving and anxiety as well since yesterday.She has been going to groups and participating in as many groups as she can on the unit. She states that she is able to sleep fairly last night and has a fair appetite. At this time patient denies any suicidal or homical ideations, intent or plan. Patient denies any auditory, visual hallucinations and denies any paranoia or delusions. Patient denies any side effects from the medications and has been compliant with meds. Mental Status Exam: General Appearance: Patient appears to be improving in terms of hygiene, stated age is alert, directable, and cooperative. Behavior: Patient is calmly seated without any agitated behavior. Speech: Patient's speech is fluent and nonpressured. Mood/Affect: Mood is improving mildly, affect is congruent and constricted. Suicidality/Homicidality: Patient denies having any suicidal or homicidal ideation intent or plan. Perceptions: Patient denies any visual hallucinations and denies any auditory hallucinations Though content/process: Rambles, logical, improving. No delusions. more future oriented Memory and concentration: AOX3, grossly intact for the purposes of this session Judgment and insight: Improving mildly Assessment Major depressive disorder, without psychotic features Generalized anxiety disorder Hoarding disorder Plan: -Patient continues to meet criteria for inpatient psychiatric admission for symptom stabilization and safety. Patient has not signed adult voluntary form and medication consent and was placed in patient's chart. -Medications: Klonopin 1 mg twice a day for anxiety. Continue Zoloft 200 mg daily or mood/anxiety. Remeron 45 mg daily at bedtime for sleep/mood/anxiety. -When necessary Ativan and Haldol for agitation/aggression. -NRT -not needed as patient does not smoke -SW on board for discharge planning. Encouraged the patient to participate in milieu. broom worker to follow up with patient's daughter to help with discharge planning. Likely discharge tomorrow.
[2021-07-08 12:40] LABS: Glucose,Whole Blood 338 mg/dL (75-99)
[2021-07-08 17:36] LABS: Glucose,Whole Blood 92 mg/dL (75-99)
[2021-07-08 19:41] LABS: Glucose,Whole Blood 250 mg/dL (75-99)
[2021-07-08] MEDS: INSULIN DETEMIR (LEVEMIR) 100 UNIT/ML SYR SQ SCH (20:04)
[2021-07-08] MEDS: NIACIN TR 500 MG CAPLET PO SCH (20:04)
[2021-07-08] MEDS: ATORVASTATIN 80 MG TAB PO SCH (20:05)
[2021-07-08] MEDS: MIRTAZAPINE 45 MG TABLET PO SCH (20:05)
[2021-07-09 07:09] VITALS: BP 101/59; PULSE 65; RESP 16; TEMP 97.1
[2021-07-09 07:48] LABS: Glucose,Whole Blood 150 mg/dL (75-99)
[2021-07-09] MEDS: INSULIN ASPART (NovoLOG) 100 UNIT/ML VIAL SQ SCH ×4 (08:10→12:50)
[2021-07-09] MEDS: clonazePAM 1 MG TAB PO SCH (08:44)
[2021-07-09] MEDS: lisinopriL 20 MG TAB PO SCH (08:44)
[2021-07-09] MEDS: GABAPENTIN 100 MG CAP PO SCH (08:44)
[2021-07-09] MEDS: SERTRALINE 100 MG TAB PO SCH (08:44)
[2021-07-09] MEDS: CALCIUM CARB-VIT D 500 MG-5 MCG TAB PO SCH (08:45)
[2021-07-09] MEDS: FENOFIBRATE 160 MG TAB PO SCH (08:45)
[2021-07-09] MEDS: MULTIVITAMINS, THERA 1 EACH TAB PO SCH (08:45)
[2021-07-09] MEDS: atenoloL 50 MG TAB PO SCH (08:47)
--- NOTE | 2021-07-09 11:23 | P.DS ---
Providers Date of admission: 07/05/21 18:55 Expected date of discharge: 07/09/21 Attending physician: Gray Warner MD Consults: 07/05/21 19:07 Consult Physician Routine Consulting Provider: Mike Borges Consult Reason/Comments: medical management Do you want consulting provider notified?: Yes Primary care physician: Mike Jony - Discharge Diagnosis(es) (1) Major depressive disorder without psychotic features Current Visit: Yes Status: Acute Priority: High (2) Generalized anxiety disorder Current Visit: Yes Status: Acute Priority: Medium (3) Hoarding disorder Current Visit: Yes Status: Acute Priority: Medium Hospital Course: Admission HPI: Admission note was completed by telegraphic typewriter operator chief "Patient is a 56-year-old female who is currently , has 3 kids, living alone in a house, unemployed. Patient presented to the hospital yesterday and was brought in by her daughter for psychiatric evaluation. Apparently there is concern by the daughter that patient has been hoarding and feeling depressed and anxious at home. The concern was that patient is not being taking care of herself and in a poor living condition. Patient claims she lost her disability check about 2-3 months ago and has not been able to pay for utilities. She was seen today and agreeable to seek a telegraphic typewriter operator chief. She. Poor hygiene and grooming. She also states that she is feeling nauseous earlier. She claims that she has been feeling depressed and anxious lately. She claims that she does not have an income at this time and her utilities were shot off. She claims that she has not been taking care of her diabetes appropriately with proper food and medications. She claims that her family has been concerned about her. She states that she lives alone and admits to hoarding behavior. She claims that the "squirrels took over the back side of the house". She states that her house is pretty much ruined. She claims that she has been feeling more anxious and depressed lately however was agreeable to take medications. She did claim that she has been taking her Zoloft Klonopin and Remeron at home. She states that her appetite and sleep has been fair. Patient denies any suicidal or homicidal ideations intent or plan. At this time patient denies any auditory or visual hallucinations. Patient denies any flight of ideas racing thoughts and increased in goal directed behavior. Patient admits to using no recreational drugs or cigarettes." Hospital course: Upon admission to the unit patient was directable and agreeable to commence treatment and signed adult voluntary form . Patient got along well with other patients on the unit and followed unit protocol. Patient was compliant with the medications and denied any side effects throughout hospital course. Patient was started on her home dose of Zoloft 200 mg daily for mood/anxiety, Remeron 45 mg daily at bedtime for sleep/mood/anxiety.. Patient spoke of her stressors and engaged in therapy both group and individual. Patient was also seen by medical team for history and physical exam. Throughout the course of the ho spitalization patient gradually improved with regards to mood, anxiety, sleep and became more future oriented with improved insight and judgment. On the day of discharge patient denied any suicidal or homicidal ideations intent or plan denied any auditory or visual hallucinations. Patient endorsed wanting to live for her health and to clean out her home and find a smaller house. The patient denied any access to guns or weapons. Patient denied any paranoia and did not endorse any delusions. Patient does not have a significant history of substance abuse however was counseled on abstaining from all substances including alcohol and marijuana. Patient was also counseled on the medications and need for regular compliance and was encouraged to follow-up with their outpatient appointment for mental health and also for primary care. Prior to discharge a family meeting will be arranged by social insurance administrator to answer any questions and ensure safety upon discharge. Patient's children have all stepped up to help clean up the house while patient was in the hospital and had the utilities and electricity turned on and were all agreeable to have patient go back to her house for the time being until it is fully cleared out as they did not want her to stay with them at this time. Mental status exam: General Appearance: Patient appears to be thin, stated age is alert, pleasant, and cooperative. Patient is in no acute distress and has improved hygiene and grooming Behavior: Patient is calmly seated without any agitated behavior. Speech: Patient's speech is fluent and nonpressured. Mood/Affect: Patient reports their mood is "good", affect is congruent and euthymic. Suicidality/Homicidality: Patient denies having any suicidal or homicidal ideation intent or plan. Perceptions: Patient denies any auditory or visual hallucinations. Though content/process: There is no evidence of any delusional thought content and thought process is linear and goal-directed. more future oriented Memory and concentration: AOX3, grossly intact for the purposes of this session. Can spell "WORLD" backwards correctly. Judgment and insight: chronically poor, however has improved with guarded prognosis Impression: Major depressive disorder, without psychotic features Generalized anxiety disorder Hoarding disorder Plan: -Continue with discharge today as patient has improved and stabilized psychi atrically and is not currently an imminent threat to herself and/or others. -Continue medications: Zoloft 200 mg daily for mood/anxiety, Remeron 45 mg daily at bedtime for mood/insomnia. -Patient was counseled on the need for medication compliance and appropriate follow-up at mental health and also primary care for medical issues. Patient verbalized understanding and agreed. -Social work to arrange for and conduct family meeting to ensure safety upon discharge and answer any questions/concerns. Social work also to arrange for patients follow up appointments with [facility] for psychiatric care along with follow up with primary care provider. -Patient counseled on abstaining from recreational drugs and marijuana and alcohol. Was informed/educated on the adverse effects on their physical and ment al health. Patient verbally agreed and understood. -Patient was instructed to return to the hospital or seek immediate medical care if their psychiatric or medical symptoms do worsen or reoccur. Allergies Allergy/AdvReac Type Severity Reaction Status Date / Time NSAIDS (Non-Steroidal Allergy Rash/Hives Verified 07/05/21 13:37 Anti-Inflamma Laboratory Results WBC 8.6 k/uL (3.8-10.6) 07/06/21 10:14 RBC 4.74 m/uL (3.80-5.40) 07/06/21 10:14 Hgb 14.8 gm/dL (11.4-16.0) 07/06/21 10:14 Hct 44.0 % (34.0-46.0) 07/06/21 10:14 MCV 92.9 fL (80.0-100.0) 07/06/21 10:14 MCH 31.2 pg (25.0-35.0) 07/06/21 10:14 MCHC 33.6 g/dL (31.0-37.0) 07/06/21 10:14 RDW 13.2 % (11.5-15.5) 07/06/21 10:14 Plt Count 194 k/uL (150-450) 07/06/21 10:14 MPV 7.2 07/06/21 10:14 Neutrophils % 74 % 07/06/21 10:14 Lymphocytes % 21 % 07/06/21 10:14 Monocytes % 3 % 07/06/21 10:14 Eosinophils % 1 % 07/06/21 10:14 Basophils % 0 % 07/06/21 10:14 Neutrophils # 6.4 k/uL (1.3-7.7) 07/06/21 10:14 Lymphocytes # 1.8 k/uL (1.0-4.8) 07/06/21 10:14 Monocytes # 0.3 k/uL (0-1.0) 07/06/21 10:14 Eosinophils # 0.1 k/uL (0-0.7) 07/06/21 10:14 Basophils # 0.0 k/uL (0-0.2) 07/06/21 10:14 Sodium 139 mmol/L (137-145) 07/06/21 10:14 Potassium 3.9 mmol/L (3.5-5.1) 07/06/21 10:14 Chloride 106 mmol/L (98-107) 07/06/21 10:14 Carbon Dioxide 19 mmol/L (22-30) L 07/06/21 10:14 Anion Gap 14 mmol/L 07/06/21 10:14 BUN 11 mg/dL (7-17) 07/06/21 10:14 Creatinine 0.70 mg/dL (0.52-1.04) 07/06/21 10:14 Est GFR (CKD-EPI)AfAm >90 (>60 ml/min/1.73 sqM) 07/06/21 10:14 Est GFR (CKD-EPI)NonAf >90 (>60 ml/min/1.73 sqM) 07/06/21 10:14 Glucose 316 mg/dL (74-99) H 07/06/21 10:14 POC Glucose (mg/dL) 150 mg/dL (75-99) H 07/09/21 07:46 POC Glu Fha Underwriter JANAE Ada Carlson 07/09/21 07:[address] Glu mg/dL 306 07/06/21 10:14 Hemoglobin A1c 12.3 % (0.0-6.0) H 07/06/21 10:14 Calcium 10.0 mg/dL (8.4-10.2) 07/06/21 10:14 Total Bilirubin 1.2 mg/dL (0.2-1.3) 07/06/21 10:14 AST 42 U/L (14-36) H 07/06/21 10:14 ALT 30 U/L (4-34) 07/06/21 10:14 Alkaline Phosphatase 89 U/L (38-126) 07/06/21 10:14 Total Protein 6.9 g/dL (6.3-8.2) 07/06/21 10:14 Albumin 4.1 g/dL (3.5-5.0) 07/06/21 10:14 Triglycerides 1011.00 mg/dL (0.00-149.00) H 07/06/21 10:14 Cholesterol 293.00 mg/dL (0.00-200.00) H 07/06/21 10:14 LDL Cholesterol Direct 104.00 mg/dL (0.00-129.00) 07/06/21 10:14 LDL Cholesterol, Calc mg/dL (0.0-131.0) 07/06/21 10:14 VLDL Cholesterol, Calc 202.20 mg/dL (5.00-40.00) H 07/06/21 10:14 HDL Cholesterol 34.50 mg/dL (40.00-60.00) L 07/06/21 10:14 Cholesterol/HDL Ratio 8.49 Ratio 07/06/21 10:14 TSH 0.916 mIU/L (0.465-4.680) 07/06/21 10:14 Urine Color Yellow 07/06/21 14:00 Urine Appearance Cloudy (Clear) H 07/06/21 14:00 Urine pH 5.0 (5.0-8.0) 07/06/21 14:00 Ur Specific [place] 1.023 (1.001-1.035) 07/06/21 14:00 Urine Protein Trace (Negative) H 07/06/21 14:00 Urine Glucose (UA) 4+ (Negative) H 07/06/21 14:00 Urine Ketones 1+ (Negative) H 07/06/21 14:00 Urine Blood Negative (Negative) 07/06/21 14:00 Urine Nitrite Negative (Negative) 07/06/21 14:00 Urine Bilirubin Negative (Negative) 07/06/21 14:00 Urine Urobilinogen <2.0 mg/dL (<2.0) 07/06/21 14:00 Ur Leukocyte Esterase Large (Negative) H 07/06/21 14:00 Urine RBC 10 /hpf (0-5) H 07/06/21 14:00 Urine WBC 77 /hpf (0-5) H 07/06/21 14:00 Urine WBC Clumps Few /hpf (None) H 07/06/21 14:00 Ur Squamous Epith Cells 5 /hpf (0-4) H 07/06/21 14:00 Urine Bacteria Rare /hpf (None) H 07/06/21 14:00 Hyaline Casts 3 /lpf (0-2) H 07/06/21 14:00 Urine Mucus Rare /hpf (None) H 07/06/21 14:00 Urine HCG, Qual Not Detected (Not Detectd) 07/06/21 14:00 Urine Opiates Screen Not Detected (NotDetected) 07/06/21 14:00 Ur Oxycodone Screen Not Detected (NotDetected) 07/06/21 14:00 Urine Methadone Screen Not Detected (NotDetected) 07/06/21 14:00 Ur Propoxyphene Screen Not Detected (NotDetected) 07/06/21 14:00 Ur Barbiturates Screen Not Detected (NotDetected) 07/06/21 14:00 U Tricyclic Antidepress Not Detected (NotDetected) 07/06/21 14:00 Ur Phencyclidine Scrn Not Detected (NotDetected) 07/06/21 14:00 Ur Amphetamines Screen Not Detected (NotDetected) 07/06/21 14:00 U Methamphetamines Scrn Not Detected (NotDetected) 07/06/21 14:00 U Benzodiazepines Scrn Detected (NotDetected) H 07/06/21 14:00 Urine Cocaine Screen Not Detected (NotDetected) 07/06/21 14:00 U Marijuana (THC) Screen Not Detected (NotDetected) 07/06/21 14:00 Coronavirus (PCR) Not Detected (Not Detectd) 07/05/21 18:15 Vital Signs Temp 97.1 F L 07/09/21 06:34 Pulse 65 07/09/21 06:34 Resp 16 07/09/21 06:34 BP 101/59 07/09/21 06:34 Pulse Ox 94 L 07/08/21 06:38 Patient Condition at Discharge: Stable Plan - Discharge Summary Discharge Rx Participant: No New Discharge Prescriptions: New Sertraline [Zoloft] 200 mg PO DAILY 30 Days tab clonazePAM [KlonoPIN] 1 mg PO BID 14 Days tab Continue lisinopriL [Zestril] 20 mg PO DAILY Multivitamins, Thera [Multivitamin (formulary)] 1 tab PO DAILY Calcium Carb-Vit D 500Mg-5Mcg [Oscal 500+D 5 Mcg (200 Iu)] 1 tab PO BID Rosuvastatin Calcium [Crestor] 40 mg PO HS Niacin 1,000 mg PO HS Gabapentin [Neurontin] 200 mg PO BID cap Insulin Detemir (Levemir) [Levemir] 44 unit SQ HS 30 Days each gemfibroziL [Lopid] 600 mg PO AC-BID 30 Days tab Atenolol [Tenormin] 100 mg PO DAILY 30 Days tab Insulin Aspart [NovoLOG Flexpen] 14 unit SQ AC-TID 30 Days each Mirtazapine [Remeron] 45 mg PO HS #30 tab Discontinued clonazePAM [KlonoPIN] 1 mg PO DAILY tab clonazePAM [KlonoPIN] 2 mg PO HS tab Sertraline [Zoloft] 100 mg PO BID Discharge Medication List lisinopriL [Zestril] 20 mg PO DAILY 09/09/13 [History] Multivitamins, Thera [Multivitamin (formulary)] 1 tab PO DAILY 09/17/14 [History] Calcium Carb-Vit D 500Mg-5Mcg [Oscal 500+D 5 Mcg (200 Iu)] 1 tab PO BID 11/19/14 [History] Rosuvastatin Calcium [Crestor] 40 mg PO HS 11/19/14 [History] Niacin 1,000 mg PO HS 02/04/16 [History] Gabapentin [Neurontin] 200 mg PO BID cap 12/09/17 [Rx] Atenolol [Tenormin] 100 mg PO DAILY 30 Days tab 07/09/21 [Rx] Insulin Aspart [NovoLOG Flexpen] 14 unit SQ AC-TID 30 Days each 07/09/21 [Rx] Insulin Detemir (Levemir) [Levemir] 44 unit SQ HS 30 Days each 07/09/21 [Rx] Mirtazapine [Remeron] 45 mg PO HS #30 tab 07/09/21 [Rx] Sertraline [Zoloft] 200 mg PO DAILY 30 Days tab 07/09/21 [Rx] clonazePAM [KlonoPIN] 1 mg PO BID 14 Days tab 07/09/21 [Rx] gemfibroziL [Lopid] 600 mg PO AC-BID 30 Days tab 07/09/21 [Rx] Follow up Appointment(s)/Referral(s): [facility] [Outside] - 07/16/21 2:00 pm (Intake @ [facility]) Mike Borges MD [Primary Care Provider] - 1-2 days Activity/Diet/Wound Care/Special Instructions: Activity and diet as tolerated. Avoid the use of street drugs and alcohol. Take all medications as prescribed. When you are in need of refills on your medications please contact your medical provider and/or outpatient psychiatrist to have this done. Please go to scheduled outpatient appointment for aftercare treatment. If symptoms return or become worse, call the crisis line at and/or go to the nearest emergency room for evaluation Discharge Disposition: HOME SELF-CARE
[2021-07-09 12:37] LABS: Glucose,Whole Blood 193 mg/dL (75-99)
== END 2021-07-09 15:10 | disposition home or self-care (01) | DRG 881 ==
LOC: EC 11:20 → 3MHU 18:55
PROVIDERS: ADMIT Psychiatry & Neurology Psychiatry; ATTEND Psychiatry & Neurology Psychiatry
DX: F32.9 Major depressive disorder, single episode, unspecified (principal); K86.1 Other chronic pancreatitis; F41.1 Generalized anxiety disorder; F42.3 Hoarding disorder; E11.42 Type 2 diabetes mellitus with diabetic polyneuropathy; E11.43 Type 2 diabetes mellitus with diabetic autonomic (poly)neuropathy; E78.5 Hyperlipidemia, unspecified; F41.0 Panic disorder [episodic paroxysmal anxiety]; F43.10 Post-traumatic stress disorder, unspecified; F43.20 Adjustment disorder, unspecified; G47.00 Insomnia, unspecified; G89.4 Chronic pain syndrome; I11.9 Hypertensive heart disease without heart failure; I25.10 Atherosclerotic heart disease of native coronary artery without angina pectoris; K31.84 Gastroparesis; Z20.822 Contact with and (suspected) exposure to COVID-19; Z79.4 Long term (current) use of insulin; Z79.899 Other long term (current) drug therapy
CPT/HCPCS: 36415; 80053; 80061; 80306; 81001; 81025; 82075; 83036; 83721; 84443; 85025; 87086; 87635; 99285

== ENCOUNTER → 2021-12-17 | Outpatient (CLI) | payer MEDICARE, MEDICAID ==
[2021-12-17 18:01] LABS: Basophils # (A) 0.05 X 10*3/uL (0.00-0.10); Basophils % (A) 0.6 %; Eosinophils # (A) 0.16 X 10*3/uL (0.04-0.35); HCT 43.3 % (37.2-46.3); HGB 15.1 g/dL (12.0-15.0); Immature Grans, Automated 0.5 %; Lymphocytes # (A) 2.67 X 10*3/uL (0.90-5.00); Lymphocytes % (A) 32.9 %; MCH 30.1 pg (27.0-32.0); MCHC 34.9 g/dL (32.0-37.0); MCV 86.4 fL (80.0-97.0); Mean Platelet Volume 9.7 fL (9.5-12.2); Monocytes # (A) 0.63 X 10*3/uL (0.20-1.00); Monocytes % (A) 7.8 %; NRBC Per 100 WBC 0 /100 WBCS (0.0-0.0); Neutrophils # (A) 4.56 X 10*3/uL (1.80-7.70); Neutrophils % (A) 56.2 %; Platelet Count 252 X 10*3/uL (140-440); RBC 5.01 X 10*6/uL (4.10-5.20); RDW 11.9 % (11.5-14.5); WBC 8.11 X 10*3/uL (4.50-10.00)
[2021-12-17 18:36] LABS: African American GFR (CKD) 115.1 (60.0-200.0); Albumin 4.8 g/dL (3.8-4.9); Albumin/Globulin Ratio 1.86 (1.60-3.17); Anion Gap 17.6 mmol/L (10.00-18.00); BUN/Creat Ratio 27.24 Ratio (12.00-20.00); Blood Urea Nitrogen 17.3 mg/dL (9.0-27.0); Calcium 10.4 mg/dL (8.7-10.3); Carbon Dioxide 20.9 mmol/L (20.0-27.5); Globulin 2.6 g/dL (1.6-3.3); Magnesium 1.8 mg/dL (1.5-2.4); Non-African American GFR(CKD) 99.3 (60.0-200.0); Potassium 4.4 mmol/L (3.5-5.5); T4, Free (Free Thyroxine) 0.99 ng/dL (0.800-1.800); Total Bilirubin 0.6 mg/dL (0.30-1.20); Total Protein 7.3 g/dL (6.2-8.2)
[2021-12-17 18:53] LABS: Chol/HDL Ratio 7.65 Ratio; HDL Cholesterol 39.1 mg/dL (40.00-60.00); VLDL Calculation 221.6 mg/dL (5.00-40.00)
[2021-12-17 22:57] LABS: Appearance,Urine Clear (Clear); Bacteria,Urine None Seen /HPF (None Seen); Bilirubin,Urine Negative (Negative); Blood,Urine Negative (Negative); Color,Urine Yellow (Yellow); Ketones,Urine Trace mg/dL (Negative); Nitrite,Urine Negative (Negative); Specific Gravity,Urine >1.035 (1.001-1.030); Urobilinogen,Urine 0.2 (0.2,1.0)
[2021-12-18 01:12] LABS: Urine Creatinine 65.1 mg/dL (28.0-217.0)
== END | disposition home or self-care (01) ==
LOC: LABWHC1 14:32
PROVIDERS: ATTEND Internal Medicine
DX: I10 Essential (primary) hypertension (principal); E11.9 Type 2 diabetes mellitus without complications; E78.2 Mixed hyperlipidemia
CPT/HCPCS: 36415; 80053; 80061; 81001; 82043; 82570; 83036; 83721; 83735; 84439; 84443; 85025

== ENCOUNTER → 2022-10-07 | Outpatient (CLI) | payer MEDICARE, OTHER ==
--- NOTE | 2022-10-07 20:02 | BD ---
EXAMINATION TYPE: Axial Bone Density DATE OF EXAM: 10/07/2022 CLINICAL HISTORY: 57 years old Female. ICD-10 CODE: Z12.31 screen mammo; M85.851 Height: 63.25" Weight: 141.9 FRAX RISK QUESTIONS: Alcohol (3 or more units per day): No Family History (Parent hip fracture): No Glucocorticoids (More than 3mos): No (Ex: prednisone, prednisolone, methylprednisolone, dexamethasone, and hydrocortisone). History of Fracture in Adulthood: No Secondary Osteoporosis: 1. Type 1 Diabetes: Yes 2. Hyperthyroidism: No 3. Menopause before 45: No 4. Malnutrition: No 5. Chronic liver disease: No Rheumatoid Arthritis: No Current Tobacco Use: No RISK FACTORS HISTORY OF: Hip Fracture (Right/Left): No Spine Fracture: No History of Wrist Fracture: No Surgery to Spine/Hip(right/left)/Wrist (right/left): No Family History of Osteoporosis: No Active: Moderate Diet low in dairy products/other sources of calcium: No Postmenopausal woman: Yes Lost more than 2 inches in height since high school: No Frequent falls: No Poor Health: No Hyperparathyroidism: No Adrenal Insufficiency: No MEDICATIONS: Prednisone or other steroids: No Thyroid Medications: No Osteoporosis Medications: No Additional Medications: Blood pressure meds, cholesterol meds, anti-anxiety and depression meds, pril osec, gabapentin, insulin, calcium, vitamin D, multivitamin Additional History: Diabetic EXAM MEASUREMENTS: Bone mineral densitometry was performed using the Xerox System. Bone mineral density as measured about the Lumbar spine is: ----- L1-L4(G/cm2): 0.932 T Score Values are as follows: ----- L1: -2.2 ----- L2: -2.4 ----- L3: -2.5 ----- L4: -1.2 ----- L1-L4: -2.1 Z Score Values are as follows: ----- L1: -1.1 ----- L2: -1.3 ----- L3: -1.4 ----- L4: -0.1 ----- L1-L4: -1.0 Bone mineral density has: decreased -5.7% since study of: 07/14/2018 Bone mineral density about the R hip (g/cm2): 0.777 Bone mineral density about the L hip (g/cm2): 0.813 T Score values are as follows: -----R Neck: -2.4 -----L Neck: -2.3 -----R Total: -1.8 -----L Total: -1.5 Z Score values are as follows: -----R Neck: -1.2 -----L Neck: -1.1 -----R Total: -1.0 -----L Total: -0.7 Bone mineral density has: decreased -7.7% since study of: 07/14/2018 FRAX%s: The graph provided illustrates a 10.9% chance for a major osteoporotic fx and a 2.0% chance f or the hips probability for fx in 10 years time. IMPRESSION: Osteopenia (T Score between -2.5 and -1). However, note that measurements are bordering on osteoporos is in the hips. There is slightly increased risk of fracture and the patient may be considered for treatment. Re-Screen 2-5 years. NOTE: T-SCORE=SD OF THE YOUNG ADULT MEAN.
--- NOTE | 2022-10-08 20:26 | MM ---
Reason for Exam: Screening (asymptomatic). Last mammogram was performed 4 year(s) and 3 month(s) ago. Patient History: Menarche at age 16. First Full-Term at age 22. Postmenopausal. Hormonal Contraceptives, starting at age 17 for 30 years. Paternal aunt had breast cancer, age 45. Mother had breast cancer, age 38. Risk Values: Rhonda 5 year model risk: 2.3%. NCI Lifetime model risk: 13.0%. Prior Study Comparison: 07/17/2013 Bilateral Screening Mammogram, [facility]. 12/03/2014 Bilateral Screening Mammogram, [facility]. 07/14/2018 Bilateral Screening Mammogram, [facility]. Tissue Density: The breast tissue is heterogeneously dense. This may lower the sensitivity of mammography. Findings: Analyzed By CAD. Benign bilateral vascular calcifications. There is no suspicious group of microcalcifications or new suspicious mass in either breast. Overall Assessment: Negative, BI-RAD 1 Management: Screening Mammogram of both breasts in 1 year. . Patient should continue monthly self-breast exams. A clinical breast exam by your physician is recommended on an annual basis. This exam should not preclude additional follow-up of suspicious palpable abnormalities. Note on Rhonda scores and lifetime risk: 1. A Rhonda score greater than 3% is considered moderate risk. If this is the case, consider specialist referral to assess eligibility for a risk reducing agent. 2. If overall lifetime risk for the development of breast cancer is 20% or higher, the patient may qualify for future screening with alternating mammogram and breast MRI. Electronically signed and approved by: Cm Spann M.D. Radiologist
== END | disposition home or self-care (01) ==
LOC: RADMAMWWP 16:02
PROVIDERS: ATTEND Internal Medicine
DX: Z12.31 Encounter for screening mammogram for malignant neoplasm of breast (principal); M81.0 Age-related osteoporosis without current pathological fracture; M85.89 Other specified disorders of bone density and structure, multiple sites; Z78.0 Asymptomatic menopausal state; Z80.3 Family history of malignant neoplasm of breast
CPT/HCPCS: 77063; 77067; 77080

== ENCOUNTER → 2023-12-20 | Outpatient (CLI) | payer MEDICARE, OTHER ==
--- NOTE | 2023-12-25 11:20 | MM ---
Reason for Exam: Screening (asymptomatic). Last mammogram was performed 1 year(s) and 3 month(s) ago. Patient History: Menarche at age 16. First Full-Term at age 22. Postmenopausal. Hormonal Contraceptives, starting at age 17 for 30 years. Paternal aunt had breast cancer, age 45. Mother had breast cancer, age 38. Risk Values: Rhonda 5 year model risk: 2.4%. NCI Lifetime model risk: 12.7%. Prior Study Comparison: 12/03/2014 Bilateral Screening Mammogram, [facility]. 07/14/2018 Bilateral Screening Mammogram, [facility]. 10/07/2022 Bilateral MG 3D screening mammo w/cad, [facility]. Tissue Density: There are scattered areas of fibroglandular density. Findings: Analyzed By CAD. Right breast: There is no suspicious group of microcalcifications or new suspicious mass. Left breast: There is no suspicious group of microcalcifications or new suspicious mass. Overall Assessment: Negative, BI-RAD 1 Management: Screening Mammogram of both breasts in [address] [facility] will attempt to contact patient to return for supplemental views and ultrasound if indicated. Patient should continue monthly self-breast exams. A clinical breast exam by your physician is recommended on an annual basis. This exam should not preclude additional follow-up of suspicious palpable abnormalities. Note on Rhonda scores and lifetime risk: 1. A Rhonda score greater than 3% is considered moderate risk. If this is the case, consider specialist referral to assess eligibility for a risk reducing agent. 2. If overall lifetime risk for the development of breast cancer is 20% or higher, the patient may qualify for future screening with alternating mammogram and breast MRI. Electronically signed and approved by: Salvador Lopez DO
== END | disposition home or self-care (01) ==
LOC: RADMAMWWP 15:19
PROVIDERS: ATTEND Internal Medicine
DX: Z12.31 Encounter for screening mammogram for malignant neoplasm of breast
CPT/HCPCS: 77063; 77067